=== PATIENT | female | born 1935 | race Caucasian/White ===

== ENCOUNTER 2023-05-16 10:39 | Outpatient (REF) | payer MEDICARE, MEDICAID, SELFPAY ==
[2023-05-16 13:54] LABS: Bilirubin Urine NEGATIVE (NEGATIVE); Blood Urine NEGATIVE (NEGATIVE); Clarity Urine CLEAR (CLEAR); Color Urine YELLOW (YELLOW); Glucose Urine UA NEGATIVE (NEGATIVE); Ketones Urine NEGATIVE (NEGATIVE); Leukocyte Esterase Urine NEGATIVE (NEGATIVE); Nitrite Urine NEGATIVE (NEGATIVE); Protein Urine NEGATIVE (NEG/TRACE); Specific Gravity Urine 1.025 (1.005-1.025); Urobilinogen Urine 0.2 EU/dL (0.2-1.0)
== END 2023-05-16 10:40 ==
LOC: LAB 10:39
PROVIDERS: PCP Family Medicine; Visit Provider Family Medicine
DX: R41.82 Altered mental status, unspecified (principal); R44.3 Hallucinations, unspecified
CPT/HCPCS: 81003

== ENCOUNTER 2023-05-18 01:34 | Outpatient (OUT) | payer MEDICARE, MEDICAID, SELFPAY ==
[2023-05-18 10:15] LABS: Basophils Absolute Auto 0.1 10^3/uL (0.0-0.1); Basophils Percent Auto 0.6 % (0.2-2.0); Eosinophils Absolute Auto 0.7 10^3/uL (0.0-0.7); Eosinophils Percent Auto 6.8 % (0.9-7.0); Hematocrit 39.4 % (36.0-48.0); Hemoglobin 13.1 g/dL (12.0-16.0); Immature Granulocytes Abs Auto 0.03 10^3/uL (0.00-0.03); Immature Granulocytes Pct Auto 0.3 % (0.0-0.5); Lymphocytes Absolute Auto 3.3 10^3/uL (1.2-3.8); Lymphocytes Percent Auto 32.8 % (20.5-60.0); Mean Corpuscular HGB Conc 33.2 g/dL (29.9-35.2); Mean Corpuscular Volume 90.4 fL (81.0-99.0); Mean Platelet Volume 10.1 fL (9.5-13.5); Monocytes Absolute Auto 0.8 10^3/uL (0.3-0.8); Monocytes Percent Auto 7.6 % (1.7-12.0); Neutrophils Absolute Auto 5.2 10^3/uL (1.4-6.5); Neutrophils Percent Auto 51.9 % (43.0-75.0); Platelet Count 345 10^3/uL (150-450); Red Blood Count 4.36 10^6/uL (4.20-5.40); Red Cell Distribution Width 15.4 % (11.0-15.0)
[2023-05-18 12:33] LABS: Alanine Aminotransferase 25 U/L (14-59); Albumin Globulin Ratio 0.7; Albumin Level 3.2 g/dL (3.4-5.0); Alkaline Phosphatase 116 U/L (46-116); Anion Gap 14.6; Aspartate Amino Transferase 18 U/L (15-37); BUN Creatinine Ratio 13.8; Bilirubin Total 0.7 mg/dL (0.2-1.0); Calcium 9.2 mg/dL (8.5-10.1); Carbon Dioxide 27.3 mmol/L (21.0-32.0); Chloride 102 mmol/L (98-107); Estimated GFR (African America 58 (>=60); Estimated GFR (Non-African Ame 48 (>=60); Globulin 4.5 g/dL; Glucose 153 mg/dL (74-106); Potassium 3.9 mmol/L (3.5-5.1); Sodium 140 mmol/L (136-145); Total Protein 7.7 g/dL (6.4-8.2)
== END 2023-05-18 01:35 | disposition home or self-care (01) ==
LOC: LAB 05-24 08:53
PROVIDERS: PCP Family Medicine; Visit Provider Family Medicine
DX: I10 Essential (primary) hypertension (principal); R44.9 Unspecified symptoms and signs involving general sensations and perceptions; R60.9 Edema, unspecified
CPT/HCPCS: 36415; 80053; 83880; 85025

== ENCOUNTER 2023-10-17 06:53 | Outpatient (REF) | payer MEDICARE, MEDICAID, SELFPAY ==
[2023-10-17 09:57] LABS: Anion Gap 11.2; BUN Creatinine Ratio 30.1; Calcium 9.3 mg/dL (8.5-10.1); Carbon Dioxide 32.3 mmol/L (21.0-32.0); Chloride 101 mmol/L (98-107); Estimated GFR (African America >60 (>=60); Estimated GFR (Non-African Ame >60 (>=60); Glucose 114 mg/dL (74-106); Potassium 3.5 mmol/L (3.5-5.1); Sodium 141 mmol/L (136-145)
== END 2023-10-17 06:54 | disposition home or self-care (01) ==
LOC: LAB 06:53
PROVIDERS: PCP Family Medicine; Visit Provider Family Medicine
DX: R60.9 Edema, unspecified (principal)
CPT/HCPCS: 36415; 80048; 83880

== ENCOUNTER 2023-10-25 02:14 | Outpatient (REF) | payer MEDICARE, MEDICAID, SELFPAY ==
[2023-10-26 08:32] LABS: Bilirubin Urine NEGATIVE (NEGATIVE); Blood Urine TRACE-I (NEGATIVE); Clarity Urine CLOUDY (CLEAR); Color Urine LT. YELLOW (YELLOW); Glucose Urine UA NEGATIVE (NEGATIVE); Ketones Urine NEGATIVE (NEGATIVE); Leukocyte Esterase Urine LARGE (NEGATIVE); Nitrite Urine POSITIVE (NEGATIVE); Protein Urine NEGATIVE (NEG/TRACE); Specific Gravity Urine 1.025 (1.005-1.025); Urobilinogen Urine 0.2 EU/dL (0.2-1.0); pH Urine 5.5 (5.0-9.0)
== END 2023-10-25 02:15 | disposition home or self-care (01) ==
LOC: LAB 02:14
PROVIDERS: PCP Family Medicine; Visit Provider Family Medicine
DX: R35.0 Frequency of micturition (principal)
CPT/HCPCS: 81003; 87086; 87150; 87186

== ENCOUNTER 2023-12-21 03:32 | Outpatient (REF) | payer MEDICARE, MEDICAID, SELFPAY ==
--- OUTSIDE RECORDS SUMMARY | 2023-12-21 03:37 | XMS_ITS | CCD ---
Author Name Unknown Address [address] [place] [address] Organization [facility] Care Team Providers Care Heavy Equipment Operator Apprentice Name Role Phone Efrain Esparza Primary Care Provider Efrain ESPARZA Primary Care Physician Isaias BECERRA, Efrain Gillespie Primary Care Provider Isaias BECERRA, Efrain Gillespie Primary Care Provider Isaias BECERRA, Efrain Gillespie Primary Care Provider Merle Barker Unavailable Unavailable BETSY, DR ROLLE Admitting Unavailable BETSY, DR ROLLE Attending Unavailable BETSY, DR ROLLE Primary Care Unavailable BETSY, DR ROLLE Consulting Unavailable DIAB ., DIMITRIOS Admitting Unavailable DIAB ., DIMITRIOS Attending Unavailable BETSY, DR ROLLE Primary Care Unavailable Reyes Tracy Consulting Unavailable DIAB ., DIMITRIOS Consulting Unavailable BETSY, DR ROLLE Admitting Unavailable BETSY, DR ROLLE Attending Unavailable BETSY, DR ROLLE Primary Care Unavailable BEN LUCAS Admitting Unavailable BEN LUCAS Attending Unavailable BETSY, DR ROLLE Primary Care Unavailable BEN LUCAS Consulting Unavailable BETSY, DR ROLLE Admitting Unavailable BETSY, DR ROLLE Attending Unavailable BETSY, DR ROLLE Primary Care Unavailable BETSY, DR ROLLE Consulting Unavailable Efrain ESPARZA Attending Unavailable Candy FLEMING Attending Unavailable David WHITEHEAD Admitting Unavailable LAKIA REZA Attending Unavailable EFRAIN ESPARZA Primary Care Unavailable VIGESAA, EMILIANO S Consulting Unavailable BACKАНДРЕЙ Admitting Unavailable BACKАНДРЕЙ Attending Unavailable EFRAIN ESPARZA Primary Care Unavailable EMILIANO DENG Referring Unavailable EFRAIN ESPARZA Primary Care Unavailable VIGESAAEMILIANO S Referring Unavailable EFRAIN ESPARZA Primary Care Unavailable VIGESAA, EMILIANO S Referring Unavailable EFRAIN ESPARZA Primary Care Unavailable EMILIANO DENG Referring Unavailable EFRAIN ESPARZA Primary Care Unavailable EMILIANO DENG Attending Unavailable EMILIANO DENG Referring Unavailable EFRAIN ESPARZA Primary Care Unavailable Medications Current Medications Medication Drug Class(es) Dates Sig (Normalized) Sig (Original) acetaminophen 325 mg oral tablet (3 sources) Start: 12-16-2022 acetaminophen (TYLENOL) tablet 650 mg Start: 12-15-2022 acetaminophen 325 mg Tab 650 mg = 2 tab(s), Oral, q6hr, PRN Pain, not to exceed 4000 mg/day, Refills(s) 0 Start Date: 12/15/22 Status: Ordered Start: 03-08-2021 End: 03-08-2021 acetaminophen (TYLENOL) tabl et 650 mg acetaminophen 325 mg / HYDROcodone bitartrate 5 mg oral tablet (1 source) Opioid Agonist Start: 12-07-2022 End: 12-10-2022 HYDROcodone-acetaminophen (NORCO) 5-325 MG per tablet Indications: Closed fracture of distal end of right fibula, unspecified fracture morphology, initial encounter Take 0.5 tablets by mouth every 8 hours as needed for Pain for up to 3 days. Intended supply: 3 days. Take lowest dose possible to manage pain Max Daily Amount: 1.5 tablets 5 tablet 0 12/07/2022 12/10/2022 Active acetaminophen 325 mg / oxyCODONE hydrochloride 5 mg oral tablet (3 sources) Opioid Agonist Start: 12-26-2022 End: 01-02-2023 oxyCODONE-acetaminophen (PERCOCET) 5-325 MG per tablet Indications: Closed fracture of right ankle, initial encounter Take 1 tablet by mouth every 6 hours as needed for Pain for up to 7 days. Max Daily Amount: 4 tablets 20 tablet 0 12/26/2022 01/02/2023 Active Start: 12-16-2022 oxyCODONE-acet aminophen (PERCOCET) 5-325 MG per tablet 1 tablet Start: 12-15-2022 End: 12-18-2022 take 1 tablet by mouth every six hours acetaminophen-oxycodone 325 mg-5 mg Tab 1 tab(s), Oral, q6hr Pain 8-10 for 3 day(s), 12 tab(s), Refill(s) 0, not to exceed 4000 mg acetaminophen per day Start Date: 12/15/22 Stop Date: 12/18/22 Status: Ordered aluminum hydroxide 40 mg/ml / magnesium hydroxide 40 mg/ml / simethicone 4 mg/ml oral suspension (1 source) Start: 12-22-2022 aluminum & mag nesium hydroxide-simethicone (MAALOX) 200-200-20 MG/5ML suspension 30 mL PreserVision (7 sources) Vitamin C Start: 05-31-2019 PreserVision S ee Instructions, Refill(s) 0, 2 per day Start Date: 05/31/19 Status: Ordered aspirin 81 mg chewable tablet (20 sources) Platelet Aggregation Inhibitor, Nonsteroidal Anti-inflammatory Drug Start: 12-16-2022 aspirin chewable tab let 81 mg Start: 12-15-2022 take 1 tablet by claire th once daily aspirin 81 mg Oral EC Tab 81 mg = 1 tab(s), Oral, Daily, Refills(s) 0 Start Date: 12/15/22 Status: Ordered Start: 02-06-2020 take 1 tablet by claire th once daily aspirin 81 mg oral tablet 81 mg = 1 tab(s), Oral, Daily Start Date: 02/06/20 Status: Ordered atorvastatin 20 mg oral tablet (20 sources) HMG-CoA Reductase Inhibitor Start: 10-31-2021 atorvastatin (LIPITOR) tablet 20 mg cholecalciferol 0.025 mg oral tablet (20 sources) Vitamin D Start: 12-16-2022 Vitamin D (CHOLECALCIFEROL) tablet 5,000 Units take 1 tablet by mouth once jeni y Cholecalciferol (VITAMIN D3) 125 MCG (5000 UT) TABS Take 5,000 Units by mouth daily 0 Active Cranberry preparation (7 sources) Non-Standardized Food Allergenic Extract, Non-Standardized Plant Allergenic Extract Start: 01-15-2015 take 1 tablet by mouth once daily Cranberry oral tablet 1 tab, Oral, Daily, Refill(s) 0, Prophylaxis Start Date: 01/15/15 Status: Ordered doxepin hydrochloride 10 mg oral capsule (14 sources) Tricyclic Antidepressant Start: 09-15-2021 End: 12-26-2022 take 1 capsule by mouth once daily doxepin (SINEQUAN) 10 MG capsule Take 10 mg by mouth nightly 0 09/15/2021 12/26/2022 Discontinued (Stop Taking at Discharge) DULoxetine 30 mg delayed release oral capsule (20 sources) Serotonin and Norepinephrine Reuptake Inhibitor Start: 12-16-2022 DULoxetine (CYMBALTA) extended release capsule 30 mg Start: 12-15-2022 take 30 mg by mouth once daily duloxetine 30 mg, Oral, Daily, Refills(s) 0 Start Date: 12/15/22 Status: Ordered Start: 05-10-2021 take 30 mg by mouth once Cymba lta 30 mg, Oral, Daily, per Dr. Parekh decreased while in hospital Start Date: 05/10/21 Status: Ordered take 1 capsule by [facility] once daily DULoxetine (CYMBALTA) 60 MG extended release capsule Take 60 mg by mouth daily 0 Active 0.3 ml enoxaparin sodium 100 mg/ml prefilled syringe (2 sources) Low Molecular Weight Heparin Start: 12-19-2022 enoxaparin Sodium (LOVENOX) injection 30 mg Start: 12-16-2022 End: 12-18-2022 enoxaparin (LOVENOX) injecti on 40 mg furosemide 20 mg oral tablet (20 sources) Loop Diuretic Start: 09-06-2021 End: 12-26-2022 furosemide (LASIX) tablet 20 mg gabapentin 100 mg oral capsule (7 sources) Anti-epileptic Agent Start: 12-22-2022 End: 01-25-2023 take 1 capsule by mouth twice daily gabapentin (NEURONTIN) 100 MG capsule Take 1 capsule by mouth 2 times daily for 30 days. 60 capsule 0 12/26/2022 01/25/2023 Active Start: 12-21-2022 End: 12-22-2022 gabapentin (NEURONTIN) table t 300 mg Start: 12-15-2022 End: 12-21-2022 gabapentin (NEURONTIN) capsu le 100 mg Start: 11-13-2022 End: 12-26-2022 take 1 capsule by mouth once daily gabapentin (NEURONTIN) 100 MG capsule Take 100 mg by mouth nightly. 0 11/13/2022 12/26/2022 Discontinued (Stop Taking at Discharge) ibuprofen 200 mg oral tablet (20 sources) Nonsteroidal Anti-inflammatory Drug Start: 07-12-2021 take 2 tablets by mouth once daily as needed for pain ibuprofen 200 mg Tab 400 mg = 2 tab(s), Oral, Daily, PRN as needed for pain, Refills(s) 0 Start Date: 07/12/21 Status: Ordered Start: 06-11-2021 End: 12-26-2022 take 1 tablet by mouth four times daily as needed for pain ibuprofen (ADVIL;MOTRIN) 600 MG tablet Take 1 tablet by mouth 4 times daily as needed for Pain 40 tablet 0 06/11/2021 12/26/2022 Discontinued (Stop Taking at Discharge) levothyroxine sodium 0.025 mg oral tablet (20 sources) l-Thyroxine Start: 12-16-2022 levothyroxine (SYNTHROID) tablet 50 mcg Start: 12-13-2022 take 1 tablet by claire th once daily levothyroxine 50 mcg (0.05 mg) Tab 50 mcg = 1 tab(s), Oral, Daily, Refills(s) 0 Start Date: 12/13/22 Status: Ordered Start: 10-31-2021 take 1 tablet by claire th once daily Synthroid 50 mcg (0.05 mg) Tab 50 microgram = 1 tab(s), Oral, Daily, # 90 tab(s), Refills(s) 3, Pharmacy: [id number] [place] [address], 168, cm, 10/26/21 13:49:00 EST, Height/Length Dosing, 112.5, kg, 10/14/21 10:15:00 EST, Weight Dosing Start Date: 10/31/21 Status: Ordered Start: 10-31-2021 take 1 tablet by claire th once daily Synthroid 50 mcg (0.05 mg) Tab 50 microgram = 1 tab(s), Oral, Daily, # 90 tab(s), Refills(s) 3, Pharmacy: [id number] [place] [address], 168, cm, 10/26/21 13:49:00 EST, Height/Length Dosing, 112.5, kg, 10/14/21 10:15:00 EST, Weight Dosing Start Date: 10/31/21 Status: Ordered lisinopril 20 mg oral tablet (20 sources) Angiotensin Converting Enzyme Inhibitor Start: 12-15-2022 End: 12-21-2022 lisinopril (PRINIVIL;ZESTRIL) tablet 20 mg Start: 01-05-2018 End: 12-26-2022 take 1 tablet by mouth twice daily lisinopril 20 mg Tab 20 mg = 1 tab(s), Oral, BID, Refills(s) 0 Start Date: 12/15/22 Status: Ordered metoprolol tartrate 100 mg oral tablet (20 sources) beta-Adrenergic Lucas Start: 12-26-2022 take 1 tablet by mouth once daily metoprolol tartrate (LOPRESSOR) 100 MG tablet Take 1 tablet by mouth daily 60 tablet 3 12/26/2022 Active Start: 12-16-2022 metoprolol tar trate (LOPRESSOR) tablet 100 mg Start: 12-15-2022 End: 12-15-2022 take 2 tablets by mouth once daily metoprolol 100 mg ER Tab 200 mg = 2 tab(s), Oral, Daily, Refills(s) 0 Start Date: 12/15/22 Status: Ordered Start: 12-14-2022 End: 12-14-2022 metoprolol 100 mg ER Tab 200 mg = 2 tab(s), Tab-ER, Oral, Start date 12/14/22 9:00:00 EST, 12/13/22 0:54:00 EST Start Date: 12/14/22 Stop Date: 12/14/22 Status: Completed Start: 12-13-2022 End: 12-13-2022 metoprolol 100 mg ER Tab 200 mg = 2 tab(s), Tab-ER, Oral, Start date 12/13/22 9:00:00 EST, 12/13/22 0:54:00 EST Start Date: 12/13/22 Stop Date: 12/13/22 Status: Completed Start: 01-24-2022 End: 12-26-2022 take 1 tablet by mouth once daily Toprol XL 200 mg Tab-ER 200 mg = 1 tab(s), Oral, Daily, # 90 tab(s), Refills(s) 3, [id number], 168, cm, 01/24/22 11:42:00 EST, Height/Length Dosing, 116, kg, 01/24/22 11:42:00 EST, Weight Dosing Start Date: 01/24/22 Status: Ordered Multiple Vitamins-Minerals (PRESERVISION AREDS 2+MULTI VIT PO) (20 sources) Multiple Vitamins-Minerals (PRESERVISION AREDS 2+MULTI VIT PO) Take by mouth 0 Active multivitamin 1 tablet (1 source) Start: 2022 multivitamin 1 tablet multivitamin with minerals (1 source) Start: 2022 take 1 tablet by mouth once daily multivitamin with minerals 1 tab, Oral, Daily, Refill(s) 0 Start Date: 12/13/22 Status: Ordered ondansetron 4 mg disintegrating oral tablet (1 source) Serotonin-3 Receptor Antagonist Start: 2022 ondansetron (ZOFRAN-ODT) disintegrating tablet 4 mg pantoprazole 40 mg delayed release oral tablet (3 sources) Proton Pump Inhibitor Start: 2022 take 1 tablet by mouth once daily before breakfast pantoprazole (PROTONIX) 40 MG tablet Take 1 tablet by mouth every morning (before breakfast) 30 tablet 3 12/27/2022 Active Start: 12-15-2022 pantoprazole ( PROTONIX) tablet 40 mg potassium chloride 10 meq extended release oral tablet (20 sources) Start: 12-16-2022 potassium chlo ride (KLOR-CON) extended release tablet 10 mEq Start: 12-04-2022 take 1 tablet by claire th once daily potassium chloride (KLOR-CON M) 10 MEQ extended release tablet Take 1 tablet by mouth daily 30 tablet 11 12/04/2022 Active Start: 01-03-2022 take 1 tablet by claire th once daily potassium chloride (KLOR-CON M) 10 MEQ extended release tablet Take 1 tablet by mouth daily 30 tablet 11 01/03/2022 Active Start: 09-26-2021 take 1 capsule by mouth once p otassium chloride 10 mEq Cap-ER 10 mEq = 1 cap(s), Oral, Daily, per Dr. Coyle Start Date: 09/26/21 Status: Ordered Start: 09-26-2021 take 1 capsule by mouth once p otassium chloride 10 mEq Cap-ER 10 mEq = 1 cap(s), Oral, Daily, per Dr. Coyle Start Date: 09/26/21 Status: Ordered Start: 09-19-2021 take 1 tablet by claire th once daily potassium chloride (KLOR-CON M) 10 MEQ extended release tablet Take 1 tablet by mouth daily 30 tablet 3 09/19/2021 Active sennosides, penitentiary 8.6 mg oral tablet (3 sources) Start: 12-26-2022 End: 01-25-2023 take 2 tablets by mouth twice daily as needed for constipation senna (SENOKOT) 8.6 MG tablet Take 2 tablets by mouth 2 times daily as needed (Constipation) 0 12/26/2022 01/25/2023 Active Start: 12-16-2022 senna (SENOKOT ) tablet 17.2 mg Start: 12-15-2022 take 2 tablets by mo uth twice daily as needed Senokot 8.6 mg Tab 17.2 mg = 2 tab(s), Oral, BID, PRN Other (see comment), Refills(s) 0 Start Date: 12/15/22 Status: Ordered spironolactone 25 mg oral tablet (20 sources) Aldosterone Antagonist Start: 01-18-2021 spironolactone (ALDACTONE) tablet 25 mg vitamin e 180 mg oral capsule (20 sources) Start: 12-25-2022 vitamin E caps ule 400 Units Start: 05-31-2019 vitamin E 400 International_Unit, Oral, Daily, Refills(s) 0 Start Date: 05/31/19 Status: Ordered vitamin E 400 UN IT capsule Take by mouth daily 0 Active Completed/Discontinued Medications Medication Drug Class(es) Dates Sig (Normalized) Sig (Original) 0.8 ml adalimumab 50 mg/ml prefilled syringe (20 sources) Tumor Necrosis Factor Lucas Start: 08-30-2010 End: 08-30-2010 inject 40 mg by subcutaneous injection once Humira 40 mg/0.8 mL subcutaneous kit 40 mg = 0.8 mL, SubCutaneous, Further dosing per PCP or hook loader, Refills(s) 0, Arthritis Start Date: 08/30/10 Stop Date: 08/30/10 Status: Ordered adalimumab (HUMI RA) 40 MG/0.8ML injection Inject 40 mg into the skin every 14 days 0 Active adalimumab (HUMI RA) 40 MG/0.8ML injection Inject 40 mg into the skin once 0 Active Compression stockings, 20-30 mmHg (8 sources) Start: 06-16-[address] ockings, 20-30 mmHg Compression stockings, 20-30 mmHg, See Instructions, 1 EA, 1, wear daily both legs Thigh high, Supply Start Date: 06/16/19 Status: Ordered Insulin Lispro (3 sources) Insulin Analog Start: 12-14-2022 End: 12-14-2022 Insulin Lispro Sliding Scale 0-10 Units, Injection-Insulin, SubCutaneous, Start date 12/14/22 21:00:00 EST Start Date: 12/14/22 Stop Date: 12/14/22 Status: Completed Start: 12-14-2022 End: 12-14-2022 Insulin Lispro Sliding Scale 0-10 Units, Injection-Insulin, SubCutaneous, Start date 12/14/22 16:30:00 EST Start Date: 12/14/22 Stop Date: 12/14/22 Status: Completed Start: 12-14-2022 End: 12-14-2022 Insulin Lispro Sliding Scale 0-10 Units, Injection-Insulin, SubCutaneous, Start date 12/14/22 11:30:00 EST Start Date: 12/14/22 Stop Date: 12/14/22 Status: Completed 1 ml ketorolac tromethamine 30 mg/ml cartridge (2 sources) Nonsteroidal Anti-inflammatory Drug, Cyclooxygenase Inhibitor Start: 10-02-2021 End: 10-02-2021 ketorolac (TORADOL) injection 30 mg Start: 06-11-2021 End: 06-11-2021 ketorolac (TORADOL) injectio n 60 mg Vitamin D3 5000 intl units oral capsule (8 sources) Start: 02-06-2020 take 1 capsule by mouth once Vitamin D3 5000 intl units oral capsule 5,000 International_Unit = 1 cap(s), Oral, Daily, per integrated program teacher Start Date: 02/06/20 Status: Ordered Problems Active Problems Problem Classification Problem Date Documented Date Episodic/Chronic Cardiac dysrhythmias (11 sources) Atrial fibrillation; Translations: [Unspecified atrial fibrillation] Onset: 09-06-2023 Chronic Chronic obstructive pulmonary disease and bronchiectasis (1 source) Pulmonary emphysema 10-06-2022 Chronic Comment on above: Added at the request of Dr. Esparza, per outpatient [facility] policy. Congestive heart failure; nonhypertensive (3 sources) Chronic systolic heart failure; Translations: [Acute diastolic heart failure] Onset: 10-31-2022 10-31-2022 Chronic Coronary atherosclerosis and other heart disease (17 sources) Coronary atherosclerosis; Translations: [Ischemic myocardial dysfunction] Onset: 10-12-2023 Chronic Diabetes mellitus with complications (3 sources) Complication due to diabetes mellitus; Translations: [Type 2 diabetes mellitus with other specified complication] Onset: 06-30-2022 Chronic Comment on above: Added at the request of Dr. Esparza, per outpatient CDI policy. Diabetes mellitus without complication (7 sources) Type 2 diabetes mellitus; Translations: [Type 2 diabetes mellitus without complications] Onset: 10-31-2022 06-30-2022 Chronic Diabetes mellitus without complication (5 sources) Hyperglycemia; Translations: [Hyperglycemia, unspecified] Onset: 10-31-2022 08-30-2020 Episodic Disorders of lipid metabolism (20 sources) Dyslipidemia; Translations: [Hyperlipidemia] Onset: 06-30-2022 Chronic E Codes: Fall (1 source) Unspecified fall, initial encounter; Translations: [UNSPECIFIED FALL INITIAL ENCOUNTER] Onset: 01-29-2023 Episodic Esophageal disorders (12 sources) Gastroesophageal reflux disease; Translations: [Gastroesophageal reflux disease without esophagitis] Onset: 06-30-2022 05-12-2019 Chronic Essential hypertension (20 sources) Hypertensive disorder; Translations: [Essential hypertension] Onset: 06-30-2022 Chronic Fluid and electrolyte disorders (4 sources) Hypokalemia; Translations: [HYPOKALEMIA] Onset: 03-05-2023 Episodic Heart valve disorders (16 sources) Mitral valve regurgitation; Translations: [Nonrheumatic mitral (valve) insufficiency] Onset: 06-30-2022 Chronic Immunity disorders (1 source) 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 Esparza, per outpatient [facility]I policy. Malaise and fatigue (3 sources) Asthenia; Translations: [Weakness] Onset: 12-12-2022 Episodic Nutritional deficiencies (8 sources) Vitamin D deficiency; Translations: [Vitamin D deficiency, unspecified] Onset: 12-03-2023 Chronic Osteoarthritis (3 sources) Osteoarthritis of left hip joint; Translations: [Unilateral primary osteoarthritis, left hip] Chronic Osteoarthritis (1 source) Osteoarthritis of right knee joint; Translations: [Primary osteoarthritis of right knee] Other aftercare (3 sources) Long-term current use of drug therapy; Translations: [Other long term care pharmacist (current) drug therapy] Onset: 12-14-2022 Episodic Other connective tissue disease (2 sources) Pain of left calf; Translations: [Pain in left lower leg] Episodic Other connective tissue disease (10 sources) Pain in left lower limb; Translations: [Pain in left leg] Onset: 10-31-2022 10-14-2021 Episodic Other ear and sense organ disorders (3 sources) Impacted cerumen; Translations: [Impacted cerumen, unspecified ear] Onset: 10-31-2022 10-31-2022 Episodic Other injuries and conditions due to external causes (1 source) Injury of head; Translations: [Injury of head, initial encounter] Episodic Other injuries and conditions due to external causes (1 source) History of fall; Translations: [History of falling] Onset: 12-12-2022 Episodic Other injuries and conditions due to external causes (1 source) History of falling; Translations: [HISTORY OF FALLING] Onset: 01-29-2023 Episodic Other lower respiratory disease (4 sources) Other abnormalities of breathing; Translations: [OTHER ABNORMALITIES OF BREATHING] Onset: 02-28-2023 Episodic Other lower respiratory disease (1 source) Shortness of breath; Translations: [Shortness of breath] Onset: 12-03-2023 Episodic Other nervous system disorders (1 source) Numbness; Translations: [Has numbness] Episodic Other nervous system disorders (1 source) Paresthesia; Translations: [Paresthesia of skin] Episodic Other nervous system disorders (17 sources) Numbness of hand; Translations: [Anesthesia of skin] Onset: 10-31-2022 01-05-2021 Episodic Other nervous system disorders (10 sources) Unsteady when standing; Translations: [Unsteadiness on feet] Onset: 10-31-2022 09-26-2021 Episodic Other non-traumatic joint disorders (1 source) Hip pain; Translations: [Pain in left hip] Episodic Other non-traumatic joint disorders (2 sources) Bilateral wrist pain; Translations: [Pain in right wrist] Episodic Other non-traumatic joint disorders (3 sources) Pain in right knee; Translations: [PAIN IN RIGHT KNEE] Onset: 01-26-2023 Episodic Other nutritional; endocrine; and metabolic disorders (1 source) Body mass index 40+ - severely obese; Translations: [Body mass index (BMI) 40.0-44.9, adult] Onset: 06-30-2022 Chronic Other nutritional; endocrine; and metabolic disorders (5 sources) Morbid obesity; Translations: [Morbid (severe) obesity due to excess calories] Onset: 06-30-2022 Chronic Comment on above: Added at the request of Dr. Esparza, per outpatient [facility] policy. Other screening for suspected conditions (not mental disorders or infectious disease) (4 sources) Encounter for screening, unspecified; Translations: [ENCOUNTER FOR SCREENING UNSPECIFIED] Onset: 01-29-2023 Episodic Other upper respiratory disease (10 sources) Hoarse; Translations: [Dysphonia] Onset: 10-31-2022 08-30-2020 Episodic Paralysis (1 source) Weakness of left leg; Translations: [Left leg weakness] Peripheral and visceral atherosclerosis (1 source) Atherosclerosis of aorta 10-06-2022 Chronic Comment on above: Added at the request of Dr. Esparza, per outpatient [facility]I policy. Residual codes; unclassified (10 sources) Hallucinations; Translations: [Hallucinations, unspecified] Onset: 10-31-2022 12-13-2021 Episodic Residual codes; unclassified (8 sources) Swelling - edema - symptom 05-12-2019 Episodic Residual codes; unclassified (2 sources) Edema; Translations: [Edema, unspecified] Onset: 10-31-2022 10-31-2022 Episodic Residual codes; unclassified (4 sources) Localized edema; Translations: [LOCALIZED EDEMA] Onset: 02-23-2023 Episodic Rheumatoid arthritis and related disease (14 sources) Rheumatoid arthritis; Translations: [Rheumatoid arthritis of multiple joints] Onset: 06-30-2022 01-05-2021 Chronic Spondylosis; intervertebral disc disorders; other back problems (10 sources) Cervical disc disorder; Translations: [Cervical disc disorder, unspecified, unspecified cervical region] Onset: 10-31-2022 05-12-2019 Chronic Spondylosis; intervertebral disc disorders; other back problems (12 sources) Lumbosacral radiculopathy; Translations: [Spinal stenosis of lumbar region] Onset: 10-31-2022 09-26-2021 Episodic Superficial injury; contusion (4 sources) Contusion of rib; Translations: [Contusion of right front wall of thorax, initial encounter] Onset: 01-29-2023 Episodic Thyroid disorders (12 sources) Hypothyroidism; Translations: [Hypothyroidism, unspecified] Onset: 06-30-2022 08-30-2020 Chronic Unclassified (6 sources) RA( Confirmed ) 10-19-2011 Unclassified (1 source) RA 10-19-2011 Unclassified (2 sources) Body mass index 40+ - severely obese; Translations: [Adult body mass index 40 and over] Onset: 10-31-2022 10-31-2022 Unclassified (1 source) Long-term current use of drug therapy 10-06-2022 Comment on above: Added at the request of Dr. Esparza, per outpatient [facility]I policy. Past or Other Problems Problem Classification Problem Date Documented Da te Episodic/Chronic Fracture of lower limb (5 sources) Closed fracture of distal right fibula; Translations: [Other fracture of upper and lower end of right fibula, initial encounter for closed fracture] Onset: 12-07-2022 Episodic Other circulatory disease (1 source) Bruit; Translations: [Bruit] Episodic Urinary tract infections (10 sources) Urinary tract infectious disease; Translations: [Urinary tract infection, site not specified] Onset: 10-31-2022 Resolved: 11-30-2022 12-13-2021 Episodic Results Test Name Value Interpretation Reference Range Facility Echocardiographyon 4 Echocardiography [id number]# 1.00TIFF Normal [facility] - Clinical Noteon Retail - Clinical Note [id number] #1.00TIFF Normal [facility] CBC with Diffon 09-06-2023 Abs. Basophil 0.02 k/uL Normal 0.00-0.20 [facility] Comment on above: Performed By: #### Z FAST, CP, CDP, TSHX, MG #### [facility] [address] [place] [address] Application Development Intern: Ronaldo Reed MD #### LIPR #### [id number] [place] [address] Application Development Intern: Jaxon Irwin MD Abs.Imm.Granulocyte 0.01 k/uL Normal 0.00-0.30 [facility] Comment on above: Performed By: #### Z FAST, CP, CDP, TSHX, MG #### [facility] [facility] [address] [place], [place] [id number] Application Development Intern: Ronaldo Reed MD #### LIPR #### [address] [phone] Application Development Intern: Jaxon Irwin MD Abs.Neutrophil (Seg) 5.48 k/uL Normal 2.5-7.0 [facility] Comment on above: Performed By: #### Z FAST, CP, CDP, TSHX, MG #### [facility] [address] [place] [address] Application Development Intern: Ronaldo Reed MD #### LIPR #### [address] [phone] Application Development Intern: Jaxon Irwin MD Basophils/100 WBC (Bld) 0 % Normal 0-2 [facility] Comment on above: Performed By: #### Z FAST, CP, CDP, TSHX, MG #### [facility] [address] [place], [place] [phone] Application Development Intern: Ronaldo Reed MD #### LIPR #### [address] [phone] Application Development Intern: Jaxon Irwin MD Eosinophils (Bld) [#/Vol] 0.35 10*3/uL Normal 0.00-0.40 [facility] Comment on above: Performed By: #### Z FAST, CP, CDP, TSHX, MG #### [facility] [address] [place] [address] Application Development Intern: Ronaldo Reed MD #### LIPR #### [address] [phone] Application Development Intern: Jaxon Irwin MD Eosinophils/100 WBC (Bld) 4 % Normal 0-5 [facility] Comment on above: Performed By: #### Z FAST, CP, CDP, TSHX, MG #### [facility] [address] [place], [place] [id number] Application Development Intern: Ronaldo Reed MD #### LIPR #### [address] [phone] Application Development Intern: Jaxon Irwin MD Erythrocyte distribution width (RBC) [Ratio] 13.3 % Normal 12.1-15.2 [facility] Comment on above: Performed By: #### Z FAST, CP, CDP, TSHX, MG #### [facility] [address] [place] [address] Application Development Intern: Ronaldo Reed MD #### LIPR #### [address] [phone] Application Development Intern: Jaxon Irwin MD Hematocrit (Bld) [Volume fraction] 40.2 % Normal 36.0-46.0 [facility] Comment on above: Performed By: #### Z FAST, CP, CDP, TSHX, MG #### [facility] [address] [place] [address] Application Development Intern: Roanldo Reed MD #### LIPR #### [address] [phone] Application Development Intern: Jaxon Irwni MD Hemoglobin (Bld) [Mass/Vol] 13.5 g/dL Normal 12.0-16.0 [facility] Comment on above: Performed By: #### Z FAST, CP, CDP, TSHX, MG #### [facility] [address] [place] [address] Application Development Intern: Ronaldo Reed MD #### LIPR #### [address] [phone] Application Development Intern: Jaxon Irwin MD Immature granulocytes/100 WBC (Bld) 0 % Normal 0-5 [facility] Comment on above: Performed By: #### Z FAST, CP, CDP, TSHX, MG #### [facility] [address] [place] [address] Application Development Intern: Ronaldo Reed MD #### LIPR #### [address] [phone] Application Development Intern: Jaxon Irwin MD Lymphocytes (Bld) [#/Vol] 2.64 10*3/uL Normal 1.00-4.80 [facility] Comment on above: Performed By: #### Z FAST, CP, CDP, TSHX, MG #### [facility] [address] [place] [phone] Application Development Intern: Ronaldo Reed MD #### LIPR #### [place] [phone] Application Development Intern: Jaxon Irwin MD Lymphocytes/100 WBC (Bld) 29 % Normal 15-40 [facility] Comment on above: Performed By: #### Z FAST, CP, CDP, TSHX, MG #### [facility] [address] [place] [address] Application Development Intern: Ronaldo Reed MD #### LIPR #### [address] [phone] Application Development Intern: Jaxon Irwin MD MCH (RBC) [Entitic mass] 30.8 pg Normal 26.0-34.0 [facility] Comment on above: Performed By: #### Z FAST, CP, CDP, TSHX, MG #### [facility] [address] [place] [address] Application Development Intern: Ronaldo Reed MD #### LIPR #### [address] [id number] Application Development Intern: Jaxon Irwin MD MCHC (RBC) [Mass/Vol] 33.6 g/dL Normal 31.0-37.0 [facility] Comment on above: Performed By: #### Z FAST, CP, CDP, TSHX, MG #### [facility] [address] [place] [address] Application Development Intern: Ronaldo Reed MD #### LIPR #### [address] [phone] Application Development Intern: Jaxon Irwin MD MCV (RBC) [Entitic vol] 91.6 fL Normal 80.0-100.0 [facility] Comment on above: Performed By: #### Z FAST, CP, CDP, TSHX, MG #### [facility] [address] [place] [address] Application Development Intern: Ronaldo Reed MD #### LIPR #### [place] [address] Application Development Intern: Jaxon Irwin MD Monocytes (Bld) [#/Vol] 0.49 10*3/uL Normal 0.00-1.00 [facility] Comment on above: Performed By: #### Z FAST, CP, CDP, TSHX, MG #### [facility] [address] [place] [address] Application Development Intern: Ronaldo Reed MD #### LIPR #### [place] [address] Application Development Intern: Jaxon Irwin MD Monocytes/100 WBC (Bld) 6 % Normal 4-8 [facility] Comment on above: Performed By: #### Z FAST, CP, CDP, TSHX, MG #### [facility] [address] [place] [address] Application Development Intern: Ronaldo Reed MD #### LIPR #### [address] [phone] Application Development Intern: Jaxon Irwin MD Neutrophil (Seg) 61 % Normal 47-75 [facility] Comment on above: Performed By: #### Z FAST, CP, CDP, TSHX, MG #### [facility] [address] [place], [place] [phone] Application Development Intern: Ronaldo Reed MD #### LIPR #### [address] [phone] Application Development Intern: Jaxon Irwin MD Platelet mean volume (Bld) [Entitic vol] 9.4 fL Normal 6.0-12.0 [facility] Comment on above: Performed By: #### Martha FAST, CP, CDP, TSHX, MG #### [facility] [address] [place], [place] [phone] Application Development Intern: Ronaldo Reed MD #### LIPR #### [place] [address] Application Development Intern: Jaxon Irwin MD Platelets (Bld) [#/Vol] 298 10*3/uL Normal 140-450 [facility] Comment on above: Performed By: #### Martha FAST, CP, CDP, TSHX, MG #### [facility] [address] [place], [place] [phone] Application Development Intern: Ronaldo Reed MD #### LIPR #### [address] [address] Application Development Intern: Jaxon Irwin MD RBC (Bld) [#/Vol] 4.39 10*6/uL Normal 4.00-5.20 [facility] Comment on above: Performed By: #### Z FAST, CP, CDP, TSHX, MG #### [facility] [address] [place], [place] [phone] Application Development Intern: Ronaldo Reed MD #### LIPR #### [address] [phone] Application Development Intern: Jaxon Irwin MD WBC (Bld) [#/Vol] 9.0 10*3/uL Normal 3.5-11.0 [facility] Comment on above: Performed By: #### Z FAST, CP, CDP, TSHX, MG #### [facility] [address] [place], [place] [phone] Application Development Intern: Ronaldo Reed MD #### LIPR #### [address] [address] Application Development Intern: Jaxon Irwin MD Comp Metabolic Profon 2022 Albumin [Mass/Vol] 3.8 g/dL Normal 3.5-5.2 [facility] Comment on above: Performed By: #### Z FAST, CP, CDP, TSHX, MG #### [facility] [address] [place], [place] [phone] Application Development Intern: Ronaldo Reed MD #### LIPR #### [address] [phone] Application Development Intern: Jaxon Irwin MD Alkaline Phos 120 U/L High 35-104 [facility] Comment on above: Performed By: #### Z FAST, CP, CDP, TSHX, MG #### [facility] [address] [place], [place] [phone] Application Development Intern: Ronaldo Reed MD #### LIPR #### [address] [phone] Application Development Intern: Jaxon Irwin MD ALT [Catalytic activity/Vol] 15 U/L Normal 5-33 [facility] Comment on above: Performed By: #### Z FAST, CP, CDP, TSHX, MG #### [facility] [address] [place], [place] [phone] Application Development Intern: Ronaldo Reed MD #### LIPR #### [address] [phone] Application Development Intern: Jaxon Irwin MD Anion gap [Moles/Vol] 11 mmol/L Normal 9-17 [facility] Comment on above: Performed By: #### Z FAST, CP, CDP, TSHX, MG #### [facility] [address] [place], [place] [phone] Application Development Intern: Ronaldo Reed MD #### LIPR #### [address] [phone] Application Development Intern: Jaxon Irwin MD AST [Catalytic activity/Vol] 15 U/L Normal <32 [facility] Comment on above: Performed By: #### Z FAST, CP, CDP, TSHX, MG #### [facility] [address] [place], [place] [phone] Application Development Intern: Ronaldo Reed MD #### LIPR #### [address] [phone] Application Development Intern: Jaxon Irwin MD Bilirubin [Mass/Vol] 0.6 mg/dL Normal 0.3-1.2 [facility] Comment on above: Performed By: #### Z FAST, CP, CDP, TSHX, MG #### [facility] [address] [place], [place] [phone] Application Development Intern: Ronaldo Reed MD #### LIPR #### [address] [phone] Application Development Intern: Jaxon Irwin MD BUN/CRE Ratio 30 High 9-20 [facility] Comment on above: Performed By: #### Z FAST, CP, CDP, TSHX, MG #### [facility] [address] [place], [place] [phone] Application Development Intern: Ronaldo Reed MD #### LIPR #### [address] [place], [place] [id number] Application Development Intern: Jaxon Irwin MD Calcium [Mass/Vol] 10.0 mg/dL Normal 8.6-10.4 [facility] Comment on above: Performed By: #### Z FAST, CP, CDP, TSHX, MG #### [facility] [address] [place], [place] [phone] Application Development Intern: Ronaldo Reed MD #### LIPR #### [address] [phone] Application Development Intern: Jaxon Irwin MD Chloride [Moles/Vol] 98 mmol/L Normal 98-107 [facility] Comment on above: Performed By: #### Z FAST, CP, CDP, TSHX, MG #### [facility] [address] [place] [address] Application Development Intern: Ronaldo Reed MD #### LIPR #### [place] 760748 [place], [place] 2385208 Application Development Intern: Jaxon Irwin MD CO2 [Moles/Vol] 28 mmol/L Normal 20-31 [facility] Comment on above: Performed By: #### Z FAST, CP, CDP, TSHX, MG #### [facility] [address] [place], [place] [phone] Application Development Intern: Ronaldo Reed MD #### LIPR #### [address] [phone] Application Development Intern: Jaxon Irwin MD Creatinine [Mass/Vol] 0.8 mg/dL Normal 0.5-0.9 [facility] Comment on above: Performed By: #### Z FAST, CP, CDP, TSHX, MG #### [facility] [address] [place] [address] Application Development Intern: Ronaldo Reed MD #### LIPR #### [address] [phone] Application Development Intern: Jaxon Irwin MD GFR/1.73 sq M.predicted among non-blacks MDRD (S/P/Bld) [Vol rate/Area] mL/min/{1.73_m2} Normal >60 [facility] Comment on above: Result Comment: These results are not intended for use in patients <18 years of age. eGFR results are calculated without a race factor using the 2020 CKD-EPI equation. Careful clinical correlation is recommended, particularly when comparing to results calculated using previous equations. The CKD-EPI equation is less accurate in patients with extremes of muscle mass, extra-renal metabolism of creatine, excessive creatine ingestion, or following therapy that affects renal tubular secretion. Performed By: #### Z FAST, CP, CDP, TSHX, MG #### [facility] [address] [place], [place] [phone] Application Development Intern: Ronaldo Reed MD #### LIPR #### [address] [phone] Application Development Intern: Jaxon Irwin MD Glucose [Mass/Vol] 126 mg/dL High 70-99 [facility] Comment on above: Performed By: #### Z FAST, CP, CDP, TSHX, MG #### [facility] [address] [place] [address] Application Development Intern: Ronaldo Reed MD #### LIPR #### [address] [phone] Application Development Intern: Jaxon Irwin MD Potassium [Moles/Vol] 3.9 mmol/L Normal 3.7-5.3 [facility] Comment on above: Performed By: #### Z FAST, CP, CDP, TSHX, MG #### [facility] [address] [place], [place] [phone] Application Development Intern: Ronaldo Reed MD #### LIPR #### [address] [phone] Application Development Intern: Jaxon Irwin MD Protein [Mass/Vol] 7.3 g/dL Normal 6.4-8.3 [facility] Comment on above: Performed By: #### Z FAST, CP, CDP, TSHX, MG #### [facility] [address] [place], [place] 1485590 Application Development Intern: Ronaldo Reed MD #### LIPR #### [place] [address] [place], [place] [phone] Application Development Intern: Jaxon Irwin MD Sodium [Moles/Vol] 137 mmol/L Normal 135-144 [facility] Comment on above: Performed By: #### Martha FAST, CP, CDP, TSHX, MG #### [facility] [address] [place], [place] [phone] Application Development Intern: Ronaldo Reed MD #### LIPR #### [address] [phone] Application Development Intern: Jaxon Irwin MD Urea nitrogen [Mass/Vol] 24 mg/dL High 07-18 [facility] Comment on above: Performed By: #### Martha FAST, CP, CDP, TSHX, MG #### [facility] [address] [place], [place] [phone] Application Development Intern: Ronaldo Reed MD #### LIPR #### [address] [phone] Application Development Intern: Jaxon Irwin MD Lipid Profileon 09-06-2023 Cholesterol [Mass/Vol] 166 mg/dL Normal <200 [facility] Comment on above: Result Comment: Cholesterol Guidelines: <200 Desirable 200-240 Borderline >240 Undesirable Performed By: #### Z FAST, CP, CDP, TSHX, MG #### [facility] [address] [place], [place] [phone] Application Development Intern: Ronaldo Reed MD #### LIPR #### [facility] [employer] [address] [place] [address] Application Development Intern: Jaxon Irwin MD Cholesterol in HDL [Mass/Vol] 54 mg/dL Normal >40 [facility] Comment on above: Result Comment: HDL Guidelines: <40 Undesirable 40-59 Borderline >59 Desirable Performed By: #### Z FAST, CP, CDP, TSHX, MG #### [facility] [address] [place], [place] [phone] Application Development Intern: Ronaldo Reed MD #### LIPR #### [address] [address] Application Development Intern: Jaxon Irwin MD Cholesterol in LDL [Mass/Vol] 90 mg/dL Normal 0-130 [facility] Comment on above: Result Comment: LDL Guidelines: <100 Desirable 100-129 Near to/above Desirable 130-159 Borderline >159 Undesirable Direct (measured) LDL and calculated LDL are not interchangeable tests. Performed By: #### Z FAST, CP, CDP, TSHX, MG #### [facility] [address] [place], [place] [phone] Application Development Intern: Ronaldo Reed MD #### LIPR #### [address] [phone] Application Development Intern: Jaxon Irwin MD Cholesterol.total/Chol esterol in HDL [Mass ratio] 3.1 {ratio} Normal <5 [facility] Comment on above: Performed By: #### Z FAST, CP, CDP, TSHX, MG #### [facility] [address] [place], [place] [phone] Application Development Intern: Ronaldo Reed MD #### LIPR #### [address] [phone] Application Development Intern: Jaxon Irwin MD Triglyceride [Mass/Vol] 108 mg/dL Normal <150 [facility] Comment on above: Result Comment: Triglyceride Guidelines: <150 Desirable 150-199 Borderline 200-499 High >499 Very high Based on AHA Guidelines for fasting triglyceride, August 2012. Performed By: #### Z FAST, CP, CDP, TSHX, MG #### [facility] [address] [place] [address] Application Development Intern: Ronaldo Reed MD #### LIPR #### [place] [address] [place], [place] [phone] Application Development Intern: Jaxon Irwin MD Magnesiumon 09-06-2023 Magnesium [Mass/Vol] 1.9 mg/dL Normal 1.6-2.6 [facility] Comment on above: Performed By: #### Martha FAST, CP, CDP, TSHX, MG #### [facility] [address] [place] [address] Application Development Intern: Ronaldo Reed MD #### LIPR #### [place] [address] [place], [place] [phone] Application Development Intern: Jaxon Irwin MD Patient fasting?on 3 Patient fasting? YES Normal [facility] Comment on above: Performed By: #### Martha FAST, CP, CDP, TSHX, MG #### [facility] [address] [place] [address] Application Development Intern: Ronaldo Reed MD #### LIPR #### [place] [address] [place], [place] [phone] Application Development Intern: Jaxon Irwin MD RAD - MISCon 09-06-2023 RAD - MISC [id number] #[id number] Normal [facility] TSH w/reflex to FT4on 2022 Thyroid Stim. Horm. 2.32 uIU/mL Normal 0.30-5.00 [facility] Comment on above: Performed By: #### Z FAST, CP, CDP, TSHX, MG #### [facility] [address] [place] [address] Application Development Intern: Ronaldo Reed MD #### LIPR #### [facility] [address] [place], [place] [phone] Application Development Intern: Jaxon Irwin MD XR CHEST (2 VW)on 09-06-2023 XR CHEST (2 VW) EXAM: XR CHEST (2 VW) HISTORY: Atrial fibrillation, unspecified type (HCC) essential hypertension. COMPARISON: 08/08/2022 IMPRESSION: FINDINGS/IMPRESSION: 1. Heart size upper normal unchanged. 2. Chronic interstitial stranding at the lung markings, mild, stable. 3. No acute change. Interpreted by: Bang Godoy Jr., MD Signed by: Bang Godoy Jr., MD 09/06/23 Final result Normal [facility] POTASSIUMon 03-05-2023 Potassium [Moles/Vol] 4.0 mmol/L Normal 3.5-5.1 [facility] Comment on above: Performed By: #### K #### [facility] [address] [place] [address] Dr. Lacey Corado BNPon 02-28-2023 Natriuretic peptide B (Bld) [Mass/Vol] 60.0 pg/mL Normal <=1,800.0 [facility] Comment on above: Performed By: #### B MP, BNP #### [facility] [address] [place] [address] Dr. Lacey Corado PROF CHEM 8 (BAS METB)on Anion gap [Moles/Vol] 10.8 mmol/L Normal [facility] Comment on above: Performed By: #### B MP, BNP #### [facility] [address] [place] [address] Dr. Lacey Corado Calcium [Mass/Vol] 9.0 mg/dL Normal 8.5-10.1 [facility] Comment on above: Performed By: #### B MP, BNP #### [facility] [address] [place] [address] Dr. Lacey Corado Chloride [Moles/Vol] 103 mmol/L Normal 98-107 [facility] Comment on above: Performed By: #### B MP, BNP #### [facility] [address] [place] [address] [address] Lacey Corado CO2 [Moles/Vol] 28.5 mmol/L Normal 21.0-32.0 [facility] Comment on above: Performed By: #### B MP, BNP #### [facility] [address] [place] [address] [address] Lacey Corado Creatinine [Mass/Vol] 0.81 mg/dL Normal 0.55-1.02 [facility] Comment on above: Performed By: #### B MP, BNP #### [facility] [address] [place] [address] Dr. Lacey Corado EGFR-AF ZAMBIAN >60 Normal >=60 [facility] Comment on above: Performed By: #### B MP, BNP #### [facility] [address] [place] [address] [address] Lacey Corado EGFR-NON AF ZAMBIAN >60 Normal >=60 [facility] Comment on above: Performed By: #### B MP, BNP #### [facility] [address] [place] [address] [address] Lacey Corado Glucose [Mass/Vol] 111 mg/dL Critically high 74-106 [facility] Comment on above: Performed By: #### B MP, BNP #### [facility] [address] [place] [address] [address] Lacey Corado Potassium [Moles/Vol] 3.3 mmol/L Critically low 3.5-5.1 [facility] Comment on above: Performed By: #### B MP, BNP #### [facility] [address] [place] [address] [address] Lacey Corado Sodium [Moles/Vol] 139 mmol/L Normal 136-145 [facility] Comment on above: Performed By: #### B MP, BNP #### [facility] [address] [place] [address] [address] Lacey Corado Urea nitrogen [Mass/Vol] 14.0 mg/dL Normal 7.0-18.0 [facility] Comment on above: Performed By: #### B MP, BNP #### [facility] [address] [place] [address] [address] Lacey Corado Urea nitrogen/Creatinine [Mass ratio] 17.3 mg/mg Normal [facility] Comment on above: Performed By: #### B MP, BNP #### [facility] [address] [place] [address] [address] Lacey Corado PROF CHEM 8 (BAS METB)on Anion gap [Moles/Vol] 14.1 mmol/L Normal [facility] Comment on above: Performed By: #### B MP ####[facility] [address] [place] [address]Dr. Lacey Corado Calcium [Mass/Vol] 9.2 mg/dL Normal 8.5-10.1 [facility] Comment on above: Performed By: #### B MP ####[facility] [address] [place] [address]Dr. Lacey Corado Chloride [Moles/Vol] 103 mmol/L Normal 98-107 [facility] Comment on above: Performed By: #### B MP ####[facility] [address] [place] [address]Dr. Lacey Corado CO2 [Moles/Vol] 28.4 mmol/L Normal 21.0-32.0 [facility] Comment on above: Performed By: #### B MP ####[facility] [address] [place] [address]Dr. Lacey Corado Creatinine [Mass/Vol] 0.71 mg/dL Normal 0.55-1.02 [facility] Comment on above: Performed By: #### B MP ####[facility] [address] [place] [address]Dr. Lacey Corado EGFR-AF ZAMBIAN >60 Normal >=60 [facility] Comment on above: Performed By: #### B MP ####[facility] [address] [place] [address]DrJossy Corado EGFR-NON AF ZAMBIAN >60 Normal >=60 [facility] Comment on above: Performed By: #### B MP ####[facility] [address] [place] [address]Dr. Lacey Corado Glucose [Mass/Vol] 139 mg/dL Critically high 74-106 [facility] Comment on above: Performed By: #### B MP ####[facility] [address] [place] [id number]. Maria Fernandagaurav Corado Potassium [Moles/Vol] 3.5 mmol/L Normal 3.5-5.1 [facility] Comment on above: Performed By: #### B MP ####[facility] [address] [place], [place] [address]Dr. Lacey Corado Sodium [Moles/Vol] 142 mmol/L Normal 136-145 [facility] Comment on above: Performed By: #### B MP ####[facility] [address] [place], [place] [address]Dr. Lacey Corado Urea nitrogen [Mass/Vol] 14.0 mg/dL Normal 7.0-18.0 [facility] Comment on above: Performed By: #### B MP ####[facility] [address] [place], [place] [address]Dr. Maria Fernandagaurav Corado Urea nitrogen/Creatinine [Mass ratio] 19.7 mg/mg Normal [facility] Comment on above: Performed By: #### B MP ####[facility] [address] [place], [place] [address]Dr. Lacey Corado CBC AUTO DIFFon 01-26-2023 BASO # 0.1 103/ul Normal 0.0-0.1 [facility] Comment on above: Performed By: #### C BC ####[facility] [address] [place] [address]Dr. Lacey Corado Basophils/100 WBC (Bld) 0.5 % Normal 0.2-2.0 [facility] Comment on above: Performed By: #### C BC ####[facility] [address] [place], [place] [address]Dr. Lacey Corado EO # 0.4 103/ul Normal 0.0-0.7 [facility] Comment on above: Performed By: #### C BC ####[facility] [address] [place] [address]Dr. Lacey Corado Eosinophils/100 WBC (Bld) 3.6 % Normal 0.9-7.0 [facility] Comment on above: Performed By: #### C BC ####[facility] [address] [place], [place] [address]Dr. Lacey Corado Erythrocyte distribution width (RBC) [Ratio] 13.6 % Normal 11.0-15.0 [facility] Comment on above: Performed By: #### C BC ####[facility] [id number] [place], [place] [address]Dr. Lacey Corado Hematocrit (Bld) [Volume fraction] 37.9 % Normal 36.0-48.0 [facility] Comment on above: Performed By: #### C BC ####[facility] [id number] [place], [place] [address]Dr. Lacey Corado Hemoglobin (Bld) [Mass/Vol] 12.4 g/dL Normal 12.0-16.0 [facility] Comment on above: Performed By: #### C BC ####[facility] [id number] [place], [place] [address]Dr. Lacey Corado IG # 0.04 10e3/ul Critically high 0.00-0.03 [facility] Comment on above: Performed By: #### C BC ####[facility] [id number] [place], [place] [address]Dr. Lacey Corado IG % 0.4 % Normal 0.0-0.5 [facility] Comment on above: Performed By: #### C BC ####[facility] [id number] [place], [place] [address]DrJossy Lacey Mak LYMPH # 1.9 103/ul Normal 1.2-3.8 [facility] Comment on above: Performed By: #### C BC ####[facility] Pwwsbche[address] [place], [place] [address]Dr. Lacey Mak Lymphocytes/100 WBC (Bld) 18.6 % Critically low 20.5-60.0 [facility] Comment on above: Performed By: #### C BC ####[facility] [address] [address]DrJossy Corado MANUAL DIFF REQ NO Normal [facility] Comment on above: Performed By: #### C BC ####[facility] [address] [address] [id number]. Lacey Corado MCH (RBC) [Entitic mass] 30.5 pg Normal 26.7-34.0 [facility] Comment on above: Performed By: #### C BC ####[facility] [address] [place] [address]Dr. Lacey Corado MCHC (RBC) [Mass/Vol] 32.7 g/dL Normal 29.9-35.2 [facility] Comment on above: Performed By: #### C BC ####[facility] Jscvfinjw[address] [place], [place] [address]Dr. Lacey Corado MCV (RBC) [Entitic vol] 93.3 fL Normal 81.0-99.0 [facility] Comment on above: Performed By: #### C BC ####[facility] [address]otw[address] [place], [place] [address]DrJossy Corado MONO # 0.8 103/ul Normal 0.3-0.8 [facility] Comment on above: Performed By: #### C BC ####[facility] M[address] [place], [place] [address]DrJossy Corado Monocytes/100 WBC (Bld) 7.8 % Normal 1.7-12.0 [facility] Comment on above: Performed By: #### C BC ####[facility] X[address]suqy[address] [place], [place] [address]DrJossy Corado NEUT # 7.0 103/ul Critically high 1.4-6.5 [facility] Comment on above: Performed By: #### C BC ####[facility] T[address] [place], [place] [address]DrJossy Corado Neutrophils/100 WBC (Bld) 69.1 % Normal 43.0-75.0 [facility] Comment on above: Performed By: #### C BC ####[facility] [address] [id number]. Lacey Corado Platelet mean volume (Bld) [Entitic vol] 9.4 fL Critically low 9.5-13.5 [facility] Comment on above: Performed By: #### C BC ####[facility] [address] [place] [id number]. Lacey Corado PLT 355 103/ul Normal 150-450 [facility] Comment on above: Performed By: #### C BC ####[facility] [address] [address]Dr. Lacey Corado RBC 4.06 106/ul Critically low 4.20-5.40 [facility] Comment on above: Performed By: #### C BC ####[facility] [address] [place] [address]Dr. Lacey Corado WBC 10.1 103/ul Normal 4.0-11.0 [facility] Comment on above: Performed By: #### C BC ####[facility] [address] [id number]. Lacey Corado CT HEAD WO CONon 01-26-2023 CT HEAD WO CON EXAMINATION: CT HEAD WO CON HISTORY: UNSPECIFIED INJURY OF HEAD, INITIAL ENCOUNTER COMPARISON: None. TECHNIQUE: CT examination of the head without IV contrast. Dose reduction techniques were achieved by using automated exposure control and/or adjustment of mA and/or kV according to patient size and/or use of iterative reconstruction technique. FINDINGS: There is generalized volume loss. There is decreased attenuation within the periventricular, deep, and subcortical white matter suggestive of chronic microvascular ischemic changes. There is no evidence of intracranial hemorrhage, mass, or midline shift. No extra-axial fluid collection is seen. The visualized paranasal sinuses and mastoid air cells are clear. No skull abnormalities are identified. IMPRESSION: 1. No acute intracranial abnormality. Electronically authenticated by: Reyes TRACY Date: 2023-01-26 01:23 Normal [facility] PROF 14(COMP METB)on 023 Albumin [Mass/Vol] 3.3 g/dL Critically low 3.4-5.0 [facility] Comment on above: Performed By: #### C MP #### [facility] [address] [place] [address] Dr. Lacey Corado Albumin/Globulin [Mass ratio] 0.8 {ratio} Normal [facility] Comment on above: Performed By: #### C MP #### [facility] [address] [place] [address] Dr. Lacey Corado ALP [Catalytic activity/Vol] 134 U/L Critically high 46-116 [facility] Comment on above: Performed By: #### C MP #### [facility] [address] [place] [address] Dr. Lacey Corado ALT [Catalytic activity/Vol] 21 U/L Normal 14-59 [facility] Comment on above: Performed By: #### C MP #### [facility] [address] [place] [address] Dr. Lacey Corado Anion gap [Moles/Vol] 15.5 mmol/L Normal [facility] Comment on above: Performed By: #### C MP #### [facility] [address] [place] [address] Dr. Lacey Corado AST [Catalytic activity/Vol] 19 U/L Normal 15-37 [facility] Comment on above: Performed By: #### C MP #### [facility] [address] [place] [address] Dr. Lacey Corado Bilirubin [Mass/Vol] 0.5 mg/dL Normal 0.2-1.0 [facility] Comment on above: Performed By: #### C MP #### [facility] [address] [place] [address] Dr. Lacey Corado Calcium [Mass/Vol] 9.1 mg/dL Normal 8.5-10.1 [facility] Comment on above: Performed By: #### C MP #### [facility] [address] [place] [address] Dr. Lacey Corado Chloride [Moles/Vol] 106 mmol/L Normal 98-107 [facility] Comment on above: Performed By: #### C MP #### [facility] [address] [address] [address] Lacey Corado CO2 [Moles/Vol] 26.2 mmol/L Normal 21.0-32.0 [facility] Comment on above: Performed By: #### C MP #### [facility] [address] [address] [address] Lacey Corado Creatinine [Mass/Vol] 0.95 mg/dL Normal 0.55-1.02 [facility] Comment on above: Performed By: #### C MP #### [facility] [address] [address] [address] Lacey Corado EGFR-AF ZAMBIAN >60 Normal >=60 [facility] Comment on above: Performed By: #### C MP #### [facility] [address] [place] [address] Dr. Lacey Corado EGFR-NON AF ZAMBIAN 56 mL/min/1.73m2 Critically low >=60 [facility] Comment on above: Performed By: #### C MP #### [facility] [address] [address] [address] Lacey Corado Globulin (S) [Mass/Vol] 4.0 g/dL Normal [facility] Comment on above: Performed By: #### C MP #### [facility] [address] [address] [address] Lacey Corado Glucose [Mass/Vol] 135 mg/dL Critically high 74-106 [facility] Comment on above: Performed By: #### C MP #### [facility] [address] [address] [address] Lacey Corado Potassium [Moles/Vol] 3.7 mmol/L Normal 3.5-5.1 [facility] Comment on above: Performed By: #### C MP #### [facility] [address] [address] [address] Lacey Corado Protein [Mass/Vol] 7.3 g/dL Normal 6.4-8.2 [facility] Comment on above: Performed By: #### C MP #### [facility] [address] [place] [address] Dr. Lacey Corado Sodium [Moles/Vol] 144 mmol/L Normal 136-145 [facility] Comment on above: Performed By: #### C MP #### [facility] [address] [place] [address] Dr. Lacey Corado Urea nitrogen [Mass/Vol] 17.0 mg/dL Normal 7.0-18.0 [facility] Comment on above: Performed By: #### C MP #### [facility] [address] [place] [address] Dr. Lacey Corado Urea nitrogen/Creatinine [Mass ratio] 17.9 mg/mg Normal [facility] Comment on above: Performed By: #### C MP #### [facility] [address] [place] [address] Dr. Lacey Corado PROTIMEon 01-26-2023 INR Coag (PPP) [Relative time] 1.03 {INR} Normal [facility] Comment on above: Performed By: #### P TT, PT #### [facility] [address] [place] [address] Dr. Lacey Corado INR GUIDELINES SEE BELOW Normal [facility] Comment on above: Result Comment: JAD RED INR: 2.0 - 3.0 CONDITIONS NOT LISTED BELOW 2.5 - 3.5 FOR PROSTHETIC HEART VALVE REPLACEMENT 2.5 - 3.5 RECURRENT THROMBOSIS Performed By: #### P TT, PT #### [facility] [address] [place] [address] Dr. Lacey Corado PT Coag (PPP) [Time] 10.9 s Normal 9.0-11.6 [facility] Comment on above: Performed By: #### P TT, PT #### [facility] [address] [place] [address] Dr. Lacey Corado PTTon 01-26-2023 aPTT Coag (Bld) [Time] 22.2 s Critically low 22.3-36.2 [facility] Comment on above: Performed By: #### P TT, PT #### [facility] [address] [place], [place] [id number] Dr. Lacey Corado XR FEMUR RTon 01-26-2023 XR FEMUR RT EXAM: XR KNEE LT 4V or >, XR FEMUR RT, XR KNEE RT 4V or > HISTORY: Pain of joint of knee COMPARISON: None. TECHNIQUE: 2 views of the right femur, 4 views of the right knee, and 4 views of the left knee were obtained. FINDINGS: Right femur and right knee: No acute fracture or dislocation is seen. Please note that the right femoral head is excluded from the [id number]. There are advanced degenerative changes of the medial compartment of the right knee with mild degenerative changes of the lateral and patellofemoral compartments. There is no significant right knee joint effusion though evaluation is limited due to patient positioning. Atherosclerotic calcifications are noted. Left knee: No acute fracture or dislocation is seen. There are mild tricompartmental degenerative changes. There is no significant left knee joint effusion. IMPRESSION: 1. No acute fracture or dislocation of either knee or the right femur is seen. Please note that the right femoral head is not completely imaged. Consider dedicated right hip radiographs for further evaluation. If there is concern for an occult injury of the right femur, cross-sectional imaging is recommended. Otherwise, if pain persists, repeat radiographs are recommended in 7-10 days. Electronically authenticated by: Reyes TRACY Date: 2023-01-26 01:27 Normal [facility] EKG Rhythm Stripon 3 [facility] EKG [facility]hythm Stripon 3 [facility] EKG [facility]hythm Stripon 3 [facility] [employer] [employer] [facility] with 1 degree AV block [facility] [employer] [facility] with 1st degree AV block [facility] EKG [facility]hythm Stripon [facility] Basic Metabolic Panelon 11-27 Anion gap [Moles/Vol] 10 mmol/L 9 - 17 mmol/L [facility] Calcium [Mass/Vol] 9.2 mg/dL 8.6 - 10. 4 mg/dL [facility] Chloride [Moles/Vol] 101 mmol/L 98 - 10 7 mmol/L [facility] CO2 [Moles/Vol] 26 mmol/L 20 - 31 mmol/L [facility] Creatinine [Mass/Vol] 0.9 mg/dL 0.50 - 0.90 mg/dL [facility] GFR/1.73 sq M.predicted MDRD (S/P/Bld) [Vol rate/Area] - PINF [facility] Comment on above: These results are not intended for use in patients <18 years of age. eGFR results are calculated without a race factor using the 2020 CKD-EPI equation. Careful clinical correlation is recommended, particularly when comparing to results calculated using previous equations. The CKD-EPI equation is less accurate in patients with extremes of muscle mass, extra-renal metabolism of creatine, excessive creatine ingestion, or following therapy that affects renal tubular secretion. Glucose [Mass/Vol] 100 mg/dL High 70 - 99 mg/dL [facility] Interpretation and review of laboratory results Abnormal [facility] Potassium [Moles/Vol] 4.3 mmol/L 3.7 - 5.3 mmol/L [facility] Sodium [Moles/Vol] 137 mmol/L 135 - 144 mmol/L [facility] Urea nitrogen (BldV) [Mass/Vol] 37 mg/dL High 8 - 23 mg/dL [facility] Urea nitrogen/Creatinine (Bld) [Mass ratio] 41 High 9 - 20 [facility] Basic Metabolic Profon 12-22 Anion gap [Moles/Vol] 10 mmol/L Normal 9-17 [facility] Comment on above: Performed By: #### U AX #### [facility] [address] [place] [address] Application Development Intern: Ronaldo Reed MD BUN/CRE Ratio 41 High 9-20 [facility] Comment on above: Performed By: #### U AX #### [facility] [address] [place] [address] Application Development Intern: Ronaldo Reed MD Calcium [Mass/Vol] 9.2 mg/dL Normal 8.6-10.4 [facility] Comment on above: Performed By: #### U AX #### [facility] [address] [place] [address] Application Development Intern: Ronaldo Reed MD Chloride [Moles/Vol] 101 mmol/L Normal 98-107 [facility] Comment on above: Performed By: #### U AX #### [facility] [address] [place] [address] Application Development Intern: Ronaldo Reed MD CO2 [Moles/Vol] 26 mmol/L Normal 20-31 [facility] Comment on above: Performed By: #### U AX #### [facility] [address] [place] [address] Application Development Intern: Ronaldo Reed MD Creatinine [Mass/Vol] 0.90 mg/dL Normal 0.50-0.90 [facility] Comment on above: Performed By: #### U AX #### [facility] [address] [place] [address] Application Development Intern: Ronaldo Reed MD GFR/1.73 sq M.predicted among non-blacks MDRD (S/P/Bld) [Vol rate/Area] mL/min/{1.73_m2} Normal >60 [facility] Comment on above: Result Comment: These results are not intended for use in patients <18 years of age. eGFR results are calculated without a race factor using the 2020 CKD-EPI equation. Careful clinical correlation is recommended, particularly when comparing to results calculated using previous equations. The CKD-EPI equation is less accurate in patients with extremes of muscle mass, extra-renal metabolism of creatine, excessive creatine ingestion, or following therapy that affects renal tubular secretion. Performed By: #### U AX #### [facility] [address] [place] [address] Application Development Intern: Ronaldo Reed MD Glucose [Mass/Vol] 100 mg/dL High 70-99 [facility] Comment on above: Performed By: #### U AX #### [facility] [address] [place] [address] Application Development Intern: Ronaldo Reed MD Potassium [Moles/Vol] 4.3 mmol/L Normal 3.7-5.3 [facility] Comment on above: Performed By: #### U AX #### [facility] [address] [place] [address] Application Development Intern: Ronaldo Reed MD Sodium [Moles/Vol] 137 mmol/L Normal 135-144 [facility] Comment on above: Performed By: #### U AX #### [facility] [address] [place] [address] Application Development Intern: Ronaldo Reed MD Urea nitrogen [Mass/Vol] 37 mg/dL High 8-23 [facility] Comment on above: Performed By: #### U AX #### [facility] [address] [place] [address] Application Development Intern: Ronaldo Reed MD EKG 12 Leadon 12-22-2022 Atrial Rate 75 BPM [facility] Work Phone: P Swain 26 degrees [facility] Work Phone: P-R Interval 222 ms [facility] [employer] Work Phone: Q-T Interval 376 ms [facility] [employer] Work Phone: QRS Duration 92 ms [facility] [employer] Work Phone: QTc Calculation ([place]az[place]) 419 ms [facility] [employer] Work Phone: R Swain 12 degrees [facility] [employer] Work Phone: T Swain 14 degrees [employer] [employer] Work Phone: Ventricular Rate 75 BPM [facility] [employer] Work Phone: Sinus rhythm with 1st degree A-V block Possible Anterior infarct , age undetermined Abnormal ECG [facility] Андрей Rodriguez MD - 12/22/2022 Sinus rhythm with 1st degree A-V block Possible Anterior infarct , age undetermined Abnormal ECG [facility] [employer] Work Phone: [facility] [employer] Work Phone: EKG Rhythm Stripon 3 [facility] [employer] [facility] [employer] absent T wave? prolonged QT? [facility] [employer] [facility] [employer] absent T wave? prolonged QT? [facility] Troponinon 12-22-2022 Troponin, High Sens 33 ng/L High 0-14 [facility] Comment on above: Result Comment: High Sensitivity Troponin values cannot be compared with other Troponin methodologies. Performed By: #### U AX #### [facility] [address] [place] [address] Application Development Intern: Ronaldo Reed MD Basic Metabolic Panelon 11-27 Anion gap [Moles/Vol] 12 mmol/L 9 - 17 mmol/L [facility] Calcium [Mass/Vol] 9.6 mg/dL 8.6 - 10. 4 mg/dL [facility] [employer] Chloride [Moles/Vol] 100 mmol/L 98 - 10 7 mmol/L [facility] CO2 [Moles/Vol] 22 mmol/L 20 - 31 mmol/L [facility] Creatinine [Mass/Vol] 1.26 mg/dL High 0.50 - 0.90 mg/dL [facility] GFR/1.73 sq M.predicted MDRD (S/P/Bld) [Vol rate/Area] 42 mL/min/{1.73_m2} Low - PINF [facility] Comment on above: These results are not intended for use in patients <18 years of age. eGFR results are calculated without a race factor using the 2020 CKD-EPI equation. Careful clinical correlation is recommended, particularly when comparing to results calculated using previous equations. The CKD-EPI equation is less accurate in patients with extremes of muscle mass, extra-renal metabolism of creatine, excessive creatine ingestion, or following therapy that affects renal tubular secretion. Glucose [Mass/Vol] 119 mg/dL High 70 - 99 mg/dL [facility] Interpretation and review of laboratory results Abnormal [facility] Potassium [Moles/Vol] 5.2 mmol/L 3.7 - 5.3 mmol/L [facility] Sodium [Moles/Vol] 134 mmol/L Low 135 - 144 mmol/L [facility] Urea nitrogen (BldV) [Mass/Vol] 38 mg/dL High 8 - 23 mg/dL [facility] Urea nitrogen/Creatinine (Bld) [Mass ratio] 30 High 9 - 20 [facility] Basic Metabolic Profon 12-21 Anion gap [Moles/Vol] 12 mmol/L Normal 9-17 [facility] Comment on above: Performed By: #### U AX #### [facility] [address] [place] [address] Application Development Intern: Ronaldo Reed MD BUN/CRE Ratio 30 High 9-20 [facility] Comment on above: Performed By: #### U AX #### [facility] [address] [place] [address] Application Development Intern: Ronaldo Reed MD Calcium [Mass/Vol] 9.6 mg/dL Normal 8.6-10.4 [facility] Comment on above: Performed By: #### U AX #### [facility] [address] [place] [address] Application Development Intern: Ronaldo Reed MD Chloride [Moles/Vol] 100 mmol/L Normal 98-107 [facility] Comment on above: Performed By: #### U AX #### [facility] [address] [place] [address] Application Development Intern: Ronaldo Reed MD CO2 [Moles/Vol] 22 mmol/L Normal 20-31 [facility] Comment on above: Performed By: #### U AX #### [facility] [address] [place] [address] Application Development Intern: Ronaldo Reed MD Creatinine [Mass/Vol] 1.26 mg/dL High 0.50-0.90 [facility] Comment on above: Performed By: #### U AX #### [facility] [address] [place] [address] Application Development Intern: Ronaldo Reed MD GFR/1.73 sq M.predicted among non-blacks MDRD (S/P/Bld) [Vol rate/Area] 42 mL/min/{1.73_m2} Low >60 [facility] Comment on above: Result Comment: These results are not intended for use in patients <18 years of age. eGFR results are calculated without a race factor using the 2020 CKD-EPI equation. Careful clinical correlation is recommended, particularly when comparing to results calculated using previous equations. The CKD-EPI equation is less accurate in patients with extremes of muscle mass, extra-renal metabolism of creatine, excessive creatine ingestion, or following therapy that affects renal tubular secretion. Performed By: #### U AX #### [facility] [address] [place] [address] Application Development Intern: Ronaldo Reed MD Glucose [Mass/Vol] 119 mg/dL High 70-99 [facility] Comment on above: Performed By: #### U AX #### [facility] [address] [place] [address] Application Development Intern: Ronaldo Reed MD Potassium [Moles/Vol] 5.2 mmol/L Normal 3.7-5.3 [facility] Comment on above: Performed By: #### U AX #### [facility] [address] [id number] Application Development Intern: Ronaldo Reed MD Sodium [Moles/Vol] 134 mmol/L Low 135-144 [facility] Comment on above: Performed By: #### U AX #### [facility] [facility] [address] [id number] Application Development Intern: Ronaldo Reed MD Urea nitrogen [Mass/Vol] 38 mg/dL High 8-23 [facility] Comment on above: Performed By: #### U AX #### [facility] [address] [id number] Application Development Intern: Ronaldo Reed MD CBC with Auto Differentialon 12-21-2022 Absolute Eos # 0.30 [facility] Absolute Lymph # 2.50 [facility] Absolute Archer # 0.60 [facility] Basophils (Bld) [#/Vol] 0.00 10*3/uL [facility] Basophils/100 WBC (Bld) 0 % 0 - 2 % [facility] Differential Type YES [facility] Eosinophils/100 WBC (Bld) 2 % 0 - 5 % [facility] Hematocrit (Bld) [Volume fraction] 34.5 % Low 36 - 46 % [facility] Hemoglobin (Bld) [Mass/Vol] 11.4 g/dL Low 12.0 - 16.0 g/dL [facility] Interpretation and review of laboratory results Abnormal [facility] Lymphocytes/100 WBC (Bld) 23 % 15 - 40 % [facility] MCH (RBC) [Entitic mass] 31.5 pg 26 - 34 pg [facility] MCHC (RBC) [Mass/Vol] 33.0 g/dL 31 - 37 g/dL B ON [facility] MCV (RBC) [Entitic vol] 95.2 fL 80 - 100 fL [facility] Monocytes/100 WBC (Bld) 5 % 4 - 8 % [facility] Platelet distribution width (Bld) [Ratio] 14.1 % 12.1 - 15.2 % [facility] Platelets (Bld) [#/Vol] 428 10*3/uL [facility] RBC (Bld) [#/Vol] 3.63 10*6/uL Low 4.0 - 5.2 m/uL [facility] Segmented neutrophils/100 WBC (Bld) 70 % 47 - 75 % [facility] Segs Absolute 7.50 High [facility] WBC (Bld) [#/Vol] 10.9 10*3/uL [facility] CBC with Diffon 12-21-2022 Abs. Basophil 0.00 k/uL Normal 0.0-0.2 [facility] Comment on above: Performed By: #### C ADAN TROPI #### [facility] [address] [place] [address] Application Development Intern: Ronaldo Reed MD Abs.Neutrophil (Seg) 7.50 k/uL High 2.5-7.0 [facility] Comment on above: Performed By: #### C ADAN TROPI #### [facility] [address] [id number] Application Development Intern: Ronaldo Reed MD Auto Diff Performed YES Normal [facility] Comment on above: Performed By: #### C ADAN TROPI #### [facility] [address] [place] [address] Application Development Intern: Ronaldo Reed MD Basophils/100 WBC (Bld) 0 % Normal 0-2 [facility] Comment on above: Performed By: #### C ADAN TROPI #### [facility] [address] [place], [place] [phone] Application Development Intern: Ronaldo Reed MD Eosinophils (Bld) [#/Vol] 0.30 10*3/uL Normal 0.0-0.4 [facility] Comment on above: Performed By: #### C DP, TROPI #### [facility] [address] [place] [address] Application Development Intern: Ronaldo Reed MD Eosinophils/100 WBC (Bld) 2 % Normal 0-5 [facility] Comment on above: Performed By: #### C DP, TROPI #### [facility] [address] [place] [address] Application Development Intern: Ronaldo Reed MD Erythrocyte distribution width (RBC) [Ratio] 14.1 % Normal 12.1-15.2 [facility] Comment on above: Performed By: #### C DP, TROPI #### [facility] [address] [phone] Application Development Intern: Ronaldo Reed MD Hematocrit (Bld) [Volume fraction] 34.5 % Low 36-46 [facility] Comment on above: Performed By: #### C DP, TROPI #### [facility] [address] [place] [address] Application Development Intern: Ronaldo Reed MD Hemoglobin (Bld) [Mass/Vol] 11.4 g/dL Low 12.0-16.0 [facility] Comment on above: Performed By: #### C DP, TROPI #### [facility] [address] [place] [address] Application Development Intern: Ronaldo Reed MD Lymphocytes (Bld) [#/Vol] 2.50 10*3/uL Normal 1.0-4.8 [facility] Comment on above: Performed By: #### C DP, TROPI #### [facility] [address] [place], [place] [phone] Application Development Intern: Ronaldo Reed MD Lymphocytes/100 WBC (Bld) 23 % Normal 15-40 [facility] Comment on above: Performed By: #### C DP, TROPI #### [facility] [address] [place] [address] Application Development Intern: Ronaldo Reed MD MCH (RBC) [Entitic mass] 31.5 pg Normal 26-34 [facility] Comment on above: Performed By: #### C DP, TROPI #### [facility] [address] [place] [address] Application Development Intern: Ronaldo Reed MD MCHC (RBC) [Mass/Vol] 33.0 g/dL Normal 31-37 [facility] Comment on above: Performed By: #### C DP, TROPI #### [facility] [address] [place] [address] Application Development Intern: Ronaldo Reed MD MCV (RBC) [Entitic vol] 95.2 fL Normal 80-100 [facility] Comment on above: Performed By: #### C DP, TROPI #### [facility] [address] [place] [address] Application Development Intern: Ronaldo Reed MD Monocytes (Bld) [#/Vol] 0.60 10*3/uL Normal 0.0-1.0 [facility] Comment on above: Performed By: #### C DP, TROPI #### [facility] [address] [place] [address] Application Development Intern: Ronaldo Reed MD Monocytes/100 WBC (Bld) 5 % Normal 4-8 [facility] Comment on above: Performed By: #### C DP, TROPI #### [facility] [address] [place], [place] [phone] Application Development Intern: Ronaldo Reed MD Neutrophil (Seg) 70 % Normal 47-75 [facility] Comment on above: Performed By: #### C DP, TROPI #### [facility] [address] [place] [address] Application Development Intern: Ronaldo Reed MD Platelets (Bld) [#/Vol] 428 10*3/uL Normal 140-450 [facility] Comment on above: Performed By: #### C DP, TROPI #### [facility] [address] [place] [address] Application Development Intern: Ronaldo Reed MD RBC (Bld) [#/Vol] 3.63 10*6/uL Low 4.0-5.2 [facility] Comment on above: Performed By: #### C DP, TROPI #### [facility] [address] [place], [place] [phone] Application Development Intern: Ronaldo Reed MD WBC (Bld) [#/Vol] 10.9 10*3/uL Normal 3.5-11.0 [facility] Comment on above: Performed By: #### C DP, TROPI #### [facility] [address] [place], [place] [phone] Application Development Intern: Ronaldo Reed MD EKG Rhythm Stripon [facility] AM [facility] Troponinon 12-21-2022 Interpretation and review of laboratory results Abnormal [facility] Troponin, High Sensitivity 33 ng/L High 0 - 14 ng/L [facility] Comment on above: High Sensitivity Tro ponin values cannot be compared with other Troponin methodologies. [facility] Troponin, High Sens 34 ng/L High 0-14 [facility] Comment on above: Result Comment: High Sensitivity Troponin values cannot be compared with other Troponin methodologies. Performed By: #### C DP, TROPI #### [facility] [address] [place], [place] [phone] Application Development Intern: Ronaldo Reed MD Interpretation and review of laboratory results Abnormal [facility] Troponin, High Sensitivity 34 ng/L High 0 - 14 ng/L [facility] Comment on above: High Sensitivity Tro ponin values cannot be compared with other Troponin methodologies. [facility] Troponin, High Sens 48 ng/L High 0-14 [facility] Comment on above: Result Comment: High Sensitivity Troponin values cannot be compared with other Troponin methodologies. Performed By: #### U AX #### [facility] [address] [place], [place] [phone] Application Development Intern: Ronaldo Reed MD Interpretation and review of laboratory results Abnormal [facility] Troponin, High Sensitivity 48 ng/L High 0 - 14 ng/L [facility] Comment on above: High Sensitivity Tro ponin values cannot be compared with other Troponin methodologies. [facility] UA w/Reflex Cultureon 2022 Bilirubin, SemiQt,Ur Negative Normal NEG [facility] Comment on above: Performed By: #### U AX #### [facility] [address] [place] [address] Application Development Intern: Ronaldo Reed MD Blood, Urine Negative Normal NEG [facility] Comment on above: Performed By: #### U AX #### [facility] [address] [place] [address] Application Development Intern: Ronaldo Reed MD Clarity (U) Clear Normal CLEAR [facility] Comment on above: Performed By: #### U AX #### [facility] [address] [facility] [place], [place] [phone] Application Development Intern: Ronaldo Reed MD Color (U) Yellow Normal YEL [facility] Comment on above: Performed By: #### U AX #### [facility] [address] [place] [address] Application Development Intern: Ronaldo Reed MD Comment Normal [facility] Comment on above: Performed By: #### U AX #### [facility] [address] [place], [place] [phone] Application Development Intern: Ronaldo Reed MD Glucose Ql (U) Negative Normal NEG [facility] Comment on above: Performed By: #### U AX #### [facility] [address] [phone] Application Development Intern: Ronaldo Reed MD Ketones Ql (U) Negative Normal NEG [facility] Comment on above: Performed By: #### U AX #### [facility] [address] [place] [address] Application Development Intern: Ronaldo Reed MD Leukocyte esterase Test strip Ql (U) Negative Normal NEG [facility] Comment on above: Performed By: #### U AX #### [facility] [address] [place] [address] Application Development Intern: Ronaldo Reed MD Nitrite,Ur Negative Normal NEG [facility] Comment on above: Performed By: #### U AX #### [facility] [address] [place] [address] Application Development Intern: Ronaldo Reed MD PH,Ur 5.0 Normal 5.0-8.0 [facility] Comment on above: Performed By: #### U AX #### [facility] [address] [place] [address] Application Development Intern: Ronaldo Reed MD Protein Ql (U) TRACE Abnormal NEG [facility] Comment on above: Performed By: #### U AX #### [facility] [address] [phone] Application Development Intern: Ronaldo Reed MD Spec. [place],Ur 1.020 Normal 1.005-1.030 [facility] Comment on above: Performed By: #### U AX #### [facility] [address] [place] [address] Application Development Intern: Ronaldo Reed MD Urobilinogen,Ur Normal Normal NORM [facility] Comment on above: Performed By: #### U AX #### [facility] [address] [place] [address] Application Development Intern: Ronaldo Reed MD Urinalysis with Reflex to Cu ltureon 12-21-2022 Bilirubin Urine Negative NEGATIVE [facility] Color, UA Yellow Yellow [facility] Glucose, Ur Negative NEGATIVE [facility] Interpretation and review of laboratory results Abnormal [facility] Ketones Ql (U) Negative NEGATIVE [facility] Leukocyte esterase Test strip Ql (U) Negative NEGATIVE [facility] Nitrite, Urine Negative NEGATIVE [facility] pH, UA 5.0 5.0 - 8.0 [facility] Protein, UA TRACE Abnormal NEGATIVE [facility] Specific [place], UA 1.020 1.005 - 1.030 [facility] Turbidity UA Clear Clear [facility] Urinalysis Comments [facility] Urine Hgb Negative NEGATIVE [facility] Urobilinogen, Urine Normal Normal [facility] Coding Summary.on 12-18-2022 Coding Summary. CD:[id number] Gh0bWw+PGhlYWQ+PE1FV GXxG65lwZUhyE7UU2oEL S6QIBEZKWALYQ0ZZW2gw AG2QCelU8LdblPa WidkzDEzAP73ERk9VFB4 rKctZSsdtE3eiDRdC3t2 BlVuON27pW82FBmaMGOl RvU4OnPpfluhnIOg E9mhZfYayAHsNyf+PHRh YmxlIHdpZHRoPScxMDAl RbGqlGhsGN9gLx0xMCOv LWNvbGxhcHNlOiBj t4ahGPGgNZdyAO7qlHyu V8VslIP8WQGvc6u7Pe06 dHI+IAHxBOY9sSxyZZgs h796CoRyw7ztTTP5 uWTvLNxjSCD1H70tv1P0 LLEeYTWzDQI3mDW6nU8d jIylnyqfV2MpsVMqVvH8 GXA4mSUeyL5cpDtv vvexdB6yThr+F94LCU4O MENLEL8BUqr5A5AyBson dHI+AN92HITaST95vVIv mOMil0ljeXb7VzEe JLXfZTF0iAypPGkqg2Eh LUZkM73wgWNko1E0ZNAe lFaayQOgEcJcxRH0qO0u FDlukkqlc2dokstl Cjcvb6tkiz24wQ73Q48j VGahGTLcPFN2NNMkBDKo fVlcvi0nxG8zAr4+IDxj f8ghl3nopEn4EfSp DXDgdaHaaFdgEGM2j8Er Qu75D2BpaMmsx6QrFbf7 xj51lPLtc6M8aXA9WOwk NIWvuU1vCOfkFwF8 YMYuPyXnkI87lEDcQMqu Kx9guCtbpAbiSJ5xYYTr fzkfSMEqpX8vQQPgdANf zTpxQU2xTVGzyfbc r930HeLtNEH6FEJewLGw Q1ZzjL2mOjXdDOQlMIZc M3TszGPrULuoB759VHzs CwH0LYSjvqFtX8Qn XLFbcGetLcZ1s5N2Hw0P j2AhpiisTIO1FPppBIOb GnMyNxHzYvK0M2MyJvf1 BOVshApkVC1tW6Eb VLCurwtqddcnmTI0OBDf LGLogF87wVSnAYqoJn0y t1S5e473GVQqBOTmhW50 Zn1cgKlqLTPspKFU sS2vhdszo4oexabmJqRv DFJcCFv5ZNf5PSHqbTtk ZrVaJNN0VcQ2RQI3zWDl oZ7poDizvvbucC8t Oyc+D06ogO8iNCO0EWX1 wykiWYAawvThKZ04RD86 E3LoEaexhZCuaUN+PGRp pgDgsUbnPQ9rKuSb s8lzi0VjATnzM4ZkAZZj HDopDps0MDDwENT3nOA1 rY1iUIKtEQgor3R7fRU6 V8LgbzPfdj7yh8ww ERZzOLldU20nwAXnt7Y9 EFPumBE3TODrrPipHnGe vW61Eag+LVRfyDsbt1Op Kivkl7suy6bywMw4 IjMwJSIgdmFsaWduPSJ0 l7QmEa52U81aODlnMRFq OSWgQJFiWTAkwVmyxz5d nX2rZp1+PGNvbCB3 mVK1mF9uOUHaHeA3EMjr G133OiEtwCAoSebjr9ga q3oycEu7ZtAbNLBalxRy rJijMUQ8c0PuVn82 G33iOGmdATXxJDPeYIXt AMMcbJvltn6zzW4aGh8+ BO2vw5vzvr56zK05sJZ+ PRZyMYH0pUnmBTxn CDPblA7eXRtqDkL5YCEa DqBylK35aVOjTJxnNm1x vPbegScuBG1fMMHsnrcg c160TpYvo9hgDNTb mAUtIRwnWGJ1L05ws0V4 NOBcDOHhVQM5pQK4dA8k bGlnbjogbGVmdDsgdmVy vVjcLYupLCmjA449 IHRvcDsnPlBhdGllbnQg HkAgJYr2B9MjIwu5UAMj kMbnMF3gbDUlQSisEm0g cXbveJjsCW7eJCCc vhsgy520GpSyo3rrDKGs qPTyHSnoUHZ3Z21fc9Y0 WGYcEEPkTXO9cLK6oT0e bGlnbjogbGVmdDsg jrXigLvfQUfeFGxnL507 IHRvcDsnPkJpcnRoIERh dVO6MW40GV89bIXuf7I7 kBT7M8ReVBOwcogh bkoedIM8NCSnBSHczV38 Tq7qqAzqOs9vLSKmMDP0 CHRduNOfC8KygG0sHjNa DJLiHDGkC9EtwAXa LJtvX695IIirYyF7ETUv vfXwB5EoQKElsAebFsD7 f3I5Tg2ZQ8W8CS17AH02 qZMse3V5vUW7L6Kv HOMfnatczobjnNO7KEKo KYZuoN31Zb4svMxmGp8x LXOoARU0KXDxjWHoK2Sc mT2iYeRaIISdQRCq O5PlxHFzILnbR587SLsn FgS7SQJtppLyD7JnXUNv zIotRgE9f9B9Fi9DMFy9 VB06AT45nIPvf6D3 qUT7G4HjNMMjpvyegkqb uQJ0BUEfZBJksR91Mm9v iKhqCt3iZRBxBKJ7USPb gOLsP2BydM0fKyFf VMIxOIBjR2WxtBSqTBoa F042JZdxVlQ2FALhquNd F5RiBSNvtGoyMhP3w2C4 El8NZUFlPM83ZDH0 cEO2CT71FB09J3HyYqdp dGFibGU+PHRhYmxlIHdp ZHRoPScxMDAlJyBzdHls HF5vPr5aXBYiEUIi nAtcmHQvHvKal8viXVFm AIzdUS7gkXzsG6IalGV8 TOWhn6o7Ju40C92eV3Fh dXA+FRIopVJ9yLG9 nM6pPdKfIqX2XUpvX615 OpMvhCKgIuwqm1kjb9fw aGj0ZsQ7LDVtqsUvqDty NFZ9e3BpXf80W41o IHdpZHRoPSIxNSUiIHZh fItjmv3gdG4nBw5+PGNv sYY8bNW2pA0mQpHjMjJ2 PPqvF820YfYnkIXc Gxefr2jng9qarQk7ZzSg SRMoggHpkSqqSNI7b0Ux Pb37O7FveIcys5LqVgo0 vm14vCElp9E7sMO5 D5MyNMDwlulawKWukAzc OS4yHYExopgpSVOhlF5h AJOaA8x6NeZmUrN2ERhj K7VovlK2YNWjfKHj PLxrWLU0R41sq5X6FRLm CKVrRWE9jYP5iS0pgJan bjogbGVmdDsgdmVydGlj BLlaAOzeM295BJUn eJioLHBvyJ0uVSMuaJMo cPneRG0cXVBauwzjNqAK MJPHU5vtUDLTNQ4HXUSy TTwvdGQ+PHRkIHN0 nPriDJyuKOJleL8jNGKv T6y1MeFjUpJ7IAqoY1Li TMMnmgygJj03bW9dVsBr RlZ7NWqjR3RmijZ1 AUJmeFAlYBtmSRG3Z37c l8O8DGJkONEbXTG1kZY7 jZ6xvIrrxppucNXuqLbv dmVydGljYWwtYWxp L063VVIqrRhuZvOxGgV2 XlU3Jqo6X6MyMjc3LUDj sSalOQ2pxLHuCUgjAj3f rQwcdEuoNV5pDCPg paagPTGzrI3uIQAgcRRv vMneFF3yACEulfpwb081 ZeSiBLH7OBIixKOpJ1Av cJ2gHtDvIIEkJYWu Z8ErsXQpTRxoA756WFdz EeD6AKEtrlJeR8YuADOk iCkpPhM2l8O9Te29XSDA ZWFyczwvdGQ+PHRk IYX2qHlyISiaCDWkcW8z RIFvX8q5ApBaRvR4GVtg C0DqJGAdzznwQn64yS4l FsDdHhR4HUwnA1Av buA4WYGxkZVaAHlcXEI4 U69wa8K9CXNgGOWuMGI3 tBN9iD6hsFuaruapoYHm dDsgdmVydGljYWwt AZlhC404JFKphRjuIgRf bWFsZTwvdGQ+PHRkIHN0 hPusQSzgABNmzP3dOBKx Q1b8PdZoYfE5VRwm B9RtFZHfbrziGc38jM8r CfNoShA9TKkcC1CktkI1 JGKbbCFcWFbuCOW1U41c k2X5WGVyHHBsDQD2 gAY2sG4gvTlxafipbAVk dDsgdmVydGljYWwtYWxp D786GQUwqAjsDl9ze4Op jyA1mD4jHE01CL05 R6EwIxpaqHCgoKS+PHRh YmxlIHdpZHRoPScxMDAl NgXloLghHM4uZl6dMHIv LWNvbGxhcHNlOiBj b1dnRXFuYEzcST8djOqc S6IoqZZ1JFRnr5q3Lr55 L39kU0RhbJT+PGNvbCB3 oJA5fA8eAhMyNnO8 TXkbU920VqHlwMPjGiyd d4uwh9zyiRu7SlYgEGIi seBfkZdlVSX8i3LpHd85 B69zKIfpDPMoBNSg TUObFVMkfOhdvf9adT9a Ii8+EVMpoHT3lRU8qB7m PqNrVfR4SGqyE433QmSq pMUuYwjpZ07nY3Hu dXA+KZOqPxf3OFZueAsh DA4wkKCwFNhxLx9yBUV3 WuLzEhWaAKibN6FuGBWe kenwshuybCW8MLDr BRWuwS72Xn5xpMteMh5o XBEmWLS4YJXmgQUuT7Cv dY2zLkRbOQKwMELpO4Zb oVGpOMtkQ342RCry TrK0UASyknFsQ1AwQDNg kQnmXhC0a3U3Hv6AhNwj hFYkPC1zKmXzPYi5W3Qy Rxu7KYDtqJzzMK8g lKObIVbhTp7ubOoynZor HB3bPBQalxwwv473UlXc r2mvRBKjdTDjLBylLJG6 F79oc6C6MWAlYHXb YYJ0nBD7dF2fpRpipchz bGVmdDsgdmVydGljYWwt MLvsW815XWLzyLwtWjAE Kzt5N0TnZnq8AGBg oVqxCB8nqGShPEgwYt9n mTnjhZnhYD4eLONeudhx n646JfOvx5diDNPxcCAp GGofAEF4H45qs4V1 LVPnFSBeRUM0lJA6uS6r bGlnbjogbGVmdDsgdmVy lOfhSFcfDMjfM652SUPm sXopXx6TPug5Q4Cf Ipn7TGRaqLneQI8zuUNs IFhuJb1toGlkqPnlGW1e EXHdbbxbz102IjSco6ba IDEwcHQgVGltZXM7 A02ri7B6SYWqPXAoITT1 jUY3pL9udBkmpmipiXIi dDsgdmVydGljYWwtYWxp H049NQJudPznMrTs eWVyOjwvdGQ+AO35lh56 S9QgTeveFop4EJDgIME0 xCJ7sN4vAFIaFBamq1N3 pBB4K2SsynQssu6m b2xs (more content not included)... Normal [facility] Consultation Noteon 12-18-19 Consultation Note [id number] #1.00CD:127 [facility] Discharge Instructionson Discharge Instructions [id number] #1.00CD:127 [facility] Insurance Correspondence Off iceon 12-18-2022 Insurance Correspondence Office [id number]# 1.00CD:127 Normal [facility] Outside Hospital Correspo ndenceon 12-18-2022 Outside Hospital Correspondence [id number] #1.00CD:127 Normal [facility] Transfer Documentson 023 Transfer Documents [id number] #1.00CD:127 Normal [facility] Basic Metabolic Panelon 11-27 Anion gap [Moles/Vol] 10 mmol/L 9 - 17 mmol/L [facility] [employer] Calcium [Mass/Vol] 9.6 mg/dL 8.6 - 10. 4 mg/dL [facility] Chloride [Moles/Vol] 101 mmol/L 98 - 10 7 mmol/L [facility] CO2 [Moles/Vol] 29 mmol/L 20 - 31 mmol/L [facility] Creatinine [Mass/Vol] 0.89 mg/dL 0.50 - 0.90 mg/dL [facility] [employer] GFR/1.73 sq M.predicted MDRD (S/P/Bld) [Vol rate/Area] - PINF [facility] Comment on above: Effective Aug 28, 2022 These results are not intended for use in patients <18 years of age. eGFR results are calculated without a race factor using the 2020 CKD-EPI equation. Careful clinical correlation is recommended, particularly when comparing to results calculated using previous equations. The CKD-EPI equation is less accurate in patients with extremes of muscle mass, extra-renal metabolism of creatine, excessive creatine ingestion, or following therapy that affects renal tubular secretion. Glucose [Mass/Vol] 116 mg/dL High 70 - 99 mg/dL [facility] [employer] Interpretation and review of laboratory results Abnormal [facility] [employer] Potassium [Moles/Vol] 4.2 mmol/L 3.7 - 5.3 mmol/L [facility] Sodium [Moles/Vol] 140 mmol/L 135 - 144 mmol/L [facility] [employer] Urea nitrogen (BldV) [Mass/Vol] 34 mg/dL High 8 - 23 mg/dL [facility] Urea nitrogen/Creatinine (Bld) [Mass ratio] 38 High 9 - 20 [facility] Basic Metabolic Profon 12-17 Anion gap [Moles/Vol] 10 mmol/L Normal 9-17 [facility] Comment on above: Performed By: #### U AX #### [facility] [address] [place], [place] [id number] Application Development Intern: Ronaldo Reed MD BUN/CRE Ratio 38 High 9-20 [facility] Comment on above: Performed By: #### U AX #### [facility] [address], [place] [id number] Application Development Intern: Ronaldo Reed MD Calcium [Mass/Vol] 9.6 mg/dL Normal 8.6-10.4 [facility] Comment on above: Performed By: #### U AX #### [facility] [address], [place] [id number] Application Development Intern: Ronaldo Reed MD Chloride [Moles/Vol] 101 mmol/L Normal 98-107 [facility] Comment on above: Performed By: #### U AX #### [facility] [address], [place] [id number] Application Development Intern: Ronaldo Reed MD CO2 [Moles/Vol] 29 mmol/L Normal 20-31 [facility] Comment on above: Performed By: #### U AX #### [facility] [address], [place] [id number] Application Development Intern: Ronaldo Reed MD Creatinine [Mass/Vol] 0.89 mg/dL Normal 0.50-0.90 [facility] Comment on above: Performed By: #### U AX #### [facility] [address], [place] [id number] Application Development Intern: Ronaldo Reed MD GFR/1.73 sq M.predicted among non-blacks MDRD (S/P/Bld) [Vol rate/Area] mL/min/{1.73_m2} Normal >60 [facility] Comment on above: Result Comment: Effective Aug 28, 2022 These results are not intended for use in patients <18 years of age. eGFR results are calculated without a race factor using the 2020 CKD-EPI equation. Careful clinical correlation is recommended, particularly when comparing to results calculated using previous equations. The CKD-EPI equation is less accurate in patients with extremes of muscle mass, extra-renal metabolism of creatine, excessive creatine ingestion, or following therapy that affects renal tubular secretion. Performed By: #### U AX #### [facility] [address] [place] [address] Application Development Intern: Ronaldo Reed MD Glucose [Mass/Vol] 116 mg/dL High 70-99 [facility] Comment on above: Performed By: #### U AX #### [facility] [address] [place] [address] Application Development Intern: Ronaldo Reed MD Potassium [Moles/Vol] 4.2 mmol/L Normal 3.7-5.3 [facility] Comment on above: Performed By: #### U AX #### [facility] [address] [place] [address] Application Development Intern: Ronaldo Reed MD Sodium [Moles/Vol] 140 mmol/L Normal 135-144 [facility] Comment on above: Performed By: #### U AX #### [facility] [address] [place] [address] Application Development Intern: Ronaldo Reed MD Urea nitrogen [Mass/Vol] 34 mg/dL High 8-23 [facility] Comment on above: Performed By: #### U AX #### [facility] [address], [place] [id number] Application Development Intern: Ronaldo Reed MD CBC with Auto Differentialon 12-17-2022 Absolute Eos # 0.60 High [facility] Absolute Lymph # 3.20 [facility] Absolute Archer # 0.80 [facility] Basophils (Bld) [#/Vol] 0.00 10*3/uL [facility] Basophils/100 WBC (Bld) 0 % 0 - 2 % [facility] Differential Type YES [facility] Eosinophils/100 WBC (Bld) 6 % High 0 - 5 % [facility] Hematocrit (Bld) [Volume fraction] 36.6 % 36 - 46 % [facility] Hemoglobin (Bld) [Mass/Vol] 12.1 g/dL 12.0 - 16.0 g/dL [facility] Interpretation and review of laboratory results Abnormal [facility] Lymphocytes/100 WBC (Bld) 30 % 15 - 40 % [facility] MCH (RBC) [Entitic mass] 31.4 pg 26 - 34 pg [facility] MCHC (RBC) [Mass/Vol] 33.0 g/dL 31 - 37 g/dL B [facility] MCV (RBC) [Entitic vol] 95.1 fL 80 - 100 fL [facility] Monocytes/100 WBC (Bld) 8 % 4 - 8 % [facility] Platelet distribution width (Bld) [Ratio] 13.9 % 12.1 - 15.2 % [facility] Platelets (Bld) [#/Vol] 390 10*3/uL [facility] RBC (Bld) [#/Vol] 3.85 10*6/uL Low 4.0 - 5.2 m/uL [facility] Segmented neutrophils/100 WBC (Bld) 56 % 47 - 75 % [facility] Segs Absolute 6.00 [facility] WBC (Bld) [#/Vol] 10.6 10*3/uL [facility] CBC with Diffon 12-17-2022 Abs. Basophil 0.00 k/uL Normal 0.0-0.2 [facility] Comment on above: Performed By: #### U AX #### [facility] [address] [place] [address] Application Development Intern: Ronaldo Reed MD Abs.Neutrophil (Seg) 6.00 k/uL Normal 2.5-7.0 [facility] Comment on above: Performed By: #### U AX #### [facility] [address] [place] [address] Application Development Intern: Ronaldo Reed MD Auto Diff Performed YES Normal [facility] Comment on above: Performed By: #### U AX #### [facility] [address] [place] [address] Application Development Intern: Ronaldo Reed MD Basophils/100 WBC (Bld) 0 % Normal 0-2 [facility] Comment on above: Performed By: #### U AX #### [facility] [address] [place] [address] Application Development Intern: Ronaldo Reed MD Eosinophils (Bld) [#/Vol] 0.60 10*3/uL High 0.0-0.4 [facility] Comment on above: Performed By: #### U AX #### [facility] [address] [place] [address] Application Development Intern: Ronaldo Reed MD Eosinophils/100 WBC (Bld) 6 % High 0-5 [facility] Comment on above: Performed By: #### U AX #### [facility] [address] [place] [address] Application Development Intern: Ronaldo Reed MD Erythrocyte distribution width (RBC) [Ratio] 13.9 % Normal 12.1-15.2 [facility] Comment on above: Performed By: #### U AX #### [facility] [address] [place] [address] Application Development Intern: Ronaldo Reed MD Hematocrit (Bld) [Volume fraction] 36.6 % Normal 36-46 [facility] Comment on above: Performed By: #### U AX #### [facility] [address] [place] [address] Application Development Intern: Ronaldo Reed MD Hemoglobin (Bld) [Mass/Vol] 12.1 g/dL Normal 12.0-16.0 [facility] Comment on above: Performed By: #### U AX #### [facility] [address] [place] [address] Application Development Intern: Ronaldo Reed MD Lymphocytes (Bld) [#/Vol] 3.20 10*3/uL Normal 1.0-4.8 [facility] Comment on above: Performed By: #### U AX #### [facility] [address] [place] [address] Application Development Intern: Ronaldo Reed MD Lymphocytes/100 WBC (Bld) 30 % Normal 15-40 [facility] Comment on above: Performed By: #### U AX #### [facility] [address] [place] [address] Application Development Intern: Ronaldo Reed MD MCH (RBC) [Entitic mass] 31.4 pg Normal 26-34 [facility] Comment on above: Performed By: #### U AX #### [facility] [address] [place] [address] Application Development Intern: Ronaldo Reed MD MCHC (RBC) [Mass/Vol] 33.0 g/dL Normal 31-37 [facility] Comment on above: Performed By: #### U AX #### [facility] [address] [place] [address] Application Development Intern: Ronaldo Reed MD MCV (RBC) [Entitic vol] 95.1 fL Normal 80-100 [facility] Comment on above: Performed By: #### U AX #### [facility] [address] [place] [address] Application Development Intern: Ronaldo Reed MD Monocytes (Bld) [#/Vol] 0.80 10*3/uL Normal 0.0-1.0 [facility] Comment on above: Performed By: #### U AX #### [facility] [address] [place] [address] ([phone]) Application Development Intern: Ronaldo Reed MD Monocytes/100 WBC (Bld) 8 % Normal 4-8 [facility] Comment on above: Performed By: #### U AX #### [facility] [address] [place], [place] [id number] ([phone] Application Development Intern: Ronaldo Reed MD Neutrophil (Seg) 56 % Normal 47-75 [facility] Comment on above: Performed By: #### U AX #### [facility] [address] [place] [address] ([phone] Application Development Intern: Ronaldo Reed MD Platelets (Bld) [#/Vol] 390 10*3/uL Normal 140-450 [facility] Comment on above: Performed By: #### U AX #### [facility] [address] [place] [address] (609) Application Development Intern: Ronaldo Reed MD RBC (Bld) [#/Vol] 3.85 10*6/uL Low 4.0-5.2 [facility] Comment on above: Performed By: #### U AX #### [facility] [address] [place], [place] [id number] ([phone] Application Development Intern: Ronaldo Reed MD WBC (Bld) [#/Vol] 10.6 10*3/uL Normal 3.5-11.0 [facility] Comment on above: Performed By: #### U AX #### [facility] [address] [place] [address] ([phone]) Application Development Intern: Ronaldo Reed MD Progress Note-Physicianon Progress Note-Physician Assessment/Plan 1. Fracture of ankle (S82.899A: Other fracture of unspecified lower leg, initial encounter for closed fracture) 12/07/2022: R ankle fracture secondary to mechanical fall at home -12/07: Right ankle x-ray (per [facility]) acute closed distal fibular fracture -12/09: Patient slid out of bed re-injuring her ankle -12/12: Per pt.'s son pt. saw Dr. Salazar in the office - per family recs wear boot when wt. bearing -Per ED note patient was placed in orthopedic boot with patient to follow-up with orthopedics as an outpatient, 12/14: repeat R ankle/foot xray: -Right Ankle x-ray: Healing fractures of the distal fibula and medial malleolus -Right foot x-ray: No osseous abnormality -X-ray findings were discussed with Dr. Salazar via phone this a.m., he states to continue walking boot when weightbearing, follow-up in orthopedic office for ongoing management. -PT/OT - SNF -CRM to arrange -Pain mgt 2. Weakness (R53.1: Weakness) Generalized -Decline in physical ability to care for herself since reinjury of her ankle 3. At risk for fall due to comorbid condition (Z91.81: History of falling) See above 4. Aortic stenosis (I35.0: Nonrheumatic aortic (valve) stenosis) Asymptomatic 5. HTN (hypertension), benign (I10: Essential (primary) hypertension) -Furosemide, lisinopril, metoprolol, spironolactone 6. Hyperlipidemia, mixed (E78.2: Mixed hyperlipidemia) -Atorvastatin 7. Type 2 diabetes mellitus with hyperlipidemia (E11.69: Type 2 diabetes mellitus with other specified complication) Accuchecks AC/HS w/ SSI prn -A1c - 6.2% in 09/2022 -Home regimen; Diet controlled -ADA diet -Hypoglycemic protocol 8. Hypothyroid (E03.9: Hypothyroidism, unspecified) -Levothyroxine 9. Rheumatoid arthritis (M06.9: Rheumatoid arthritis, unspecified) -Humira -> non-formulary 10. 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 Acid reflux (K21.9: Gastro-esophageal reflux disease without esophagitis) -PPI 12. Morbid obesity (E66.01: Morbid (severe) obesity due to excess calories) BMI: 41 -Educated on need for lifestyle modifications with goal of weight loss as obesity has a negative impact on co-morbid conditions. 13. On deep vein thrombosis (DVT) prophylaxis (Z79.899: Other intermediate (current) drug therapy) -Lovenox Orders: pantoprazole, 40 mg = 1 tab(s), Tab-DR, Oral, Daily, Routine, Start date 12/14/22 9:00:00 EST, 12/14/22 8:54:00 EST XR Ankle 3+ Views Right XR Foot 3+ Views Right -Plan discussed w/ patient, nursing staff and CRM. This report was transcribed using voice recognition software. Every effort was made to ensure accuracy, however, inadvertently computerized airport operations specialist mistakes may be present. Subjective No acute events overnight. Patient denies CP, pressure, palpitations, N/V, SOB or paresthesia. Review of Systems Constitutional: Generalized weakness - improved today Eye: Negative. Ear/Nose/Mouth/Throa t: Negative. Respiratory: Negative Cardiovascular: Negative. Gastrointestinal: Denies abd pain. Passing flatus. Last bowel movement: 12/14 Genitourinary: Negative. Hematology/Lymphatic s: Negative. Endocrine: Negative. Immunologic: Negative Musculoskeletal: R ankle pain - improved today Integumentary: Negative. Neurologic: Alert and oriented Psychiatric: Negative. Additional ROS info: Except as noted in the above Review of Systems and in the History of Present Illness all other systems have been reviewed and are negative or noncontributory Objective Intake & Output This visit (24 hour periods starting at 07:00 EST) 12/14/22 * 12/13/22 12/12/22 Total Summary Intake mL -- -- 200 Output mL -- -- -- Fluid Balance -- -- 200 Intake (1) Oral Intake mL -- -- 200 Total -- -- 200 Output (0) Counts (1) Stool Count -- 1 -- * This column has not completed the indicated time period. Physical Exam General: Calm, able to communicate needs, Head: Normocephalic/atraum atic Eyes: Pupils equal, round, Conjunctivae and sclerae normal, HEENT: Mucous membrane moist. Tongue normal Neck: Trachea midline, neck supple, Chest: No chest wall deformity, no chest wall tenderness Lungs: CTA nixon, diminished post. bases likely 2/2 body habitus Cardio: Normal rate, apical is regular, mild non pitting edema in R ankle - leg in dependent position Pulses: Normal capillary refill Abdomen: Soft, non-distended, non-tender, normal BS Musculoskeletal: No deformity or scoliosis noted. Integumentary: Warm, dry, ecchymotic areas noted to RL E and ankle, swelling noted to right ankle Extremity: No clubbing, Neurologic: Alert, oriented x4, follows commands, Mental status: Pleasant & cooperative, approp. affect, Lab Results Glucose Cap: 138 mg/dL High (12/14/22 08:06:00) POC Device SN: [id number] (more content not included)... Normal [facility] Comment on above: Result Comment: Elec tronically Signed By: Vero COELHO\.br\Date and Time Signed: 12/14/22 10:01 EST\.br\Electronically Co-Signed By: Vero COELHO\.br\Date and Time Co-Signed: 12/14/22 13:53 EST\.br\Electronically Co-Signed By: Remy CASTELLANOS MD\.br\Date and Time Co-Signed: 12/16/22 07:36 EST CHEMISTRYOrdered By: Violet ROP User on 12-15-2022 Glucose [Mass/Vol] 130 mg/dL High 55 - 99 mg/dL [facility] POC Subsection Comment on above: Result Comment: Blanca LOMAX POC Device SN [id number] Invalid Interpretation Code [facility] POC Subsection POC User ID [id number] Invalid Interpretation Code [facility] POC Subsection POC Username CONSTANCE SHUKLA Invalid Interpretation Code [facility] POC Subsection Glucose [Mass/Vol] 132 mg/dL High 55 - 99 mg/dL [facility] POC Subsection Comment on above: Result Comment: Blanca allen RN/ POC Device SN [id number] Invalid Interpretation Code [facility] POC Subsection POC User ID [id number] Invalid Interpretation Code [facility] POC Subsection POC Username CONSTANCE SHUKLA Invalid Interpretation Code [facility] POC Subsection Glucose [Mass/Vol] 122 mg/dL High 55 - 99 mg/dL [facility] POC Subsection Comment on above: Result Comment: Danitza lizzie Meter POC Device SN [id number] Invalid Interpretation Code [facility] POC Subsection POC User ID [id number] Invalid Interpretation Code [facility] POC Subsection POC Username ROEL NI Invalid Interpretation Code [facility] POC Subsection Capillary Glucose POCon 11-27 Glucose [Mass/Vol] 130 mg/dL High 55-99 [facility] Comment on above: Result Comment: Blanca allen RN/ Performed By: #### 2 [id number] #### [facility] [address] [place] [address] Glucose [Mass/Vol] 132 mg/dL High 55-99 [facility] Comment on above: Result Comment: Blanca LOMAX Performed By: #### 2 [id number] #### [facility] [address] [place] [address] Glucose [Mass/Vol] 122 mg/dL High 55-99 [facility] Comment on above: Result Comment: Danitza lizzie Meter Performed By: #### 2 [id number] #### [facility] [address] [place] [address] Discharge Note-Nursingon Discharge Note-Nursing ALEENA GILL :1935 Visit Date:12/12/2022 Inpatient Discharge Instructions Your Care Team Admitting Physician - David WHITEHEAD MD Reason for Your Visit Pain on the right lower leg Your Diagnosis Fracture of ankle Weakness At risk for fall due to comorbid condition Aortic stenosis HTN (hypertension), benign Hyperlipidemia, mixed Type 2 diabetes mellitus with hyperlipidemia Hypothyroid Rheumatoid arthritis Spinal stenosis, lumbar Acid reflux Morbid obesity On deep vein thrombosis (DVT) prophylaxis Multiple falls Weakness or fatigue Tests Performed Automated Diff BMP Capillary Glucose POC CBC w/ Auto Diff COVID Rapid Antigen ([facility]) Electrolyte Panel -- Results Pending -- Flu A/B Troponin 0 Hr. UA With Cult Reflex XR Ankle 3+ Views Right XR Chest Single View XR Foot 3+ Views Right Please visit your patient portal for your results or contact your primary care physician. This Is Your Medications List Misc Prescription (Compression stockings, 20-30 mmHg) acetaminophen (acetaminophen 325 mg Tab) acetaminophen-oxycod one (acetaminophen-oxyco done 325 mg-5 mg Tab) adalimumab (Humira 40 mg/0.8 mL subcutaneous kit) aspirin (aspirin 81 mg Oral EC Tab) atorvastatin (atorvastatin 20 mg Tab) cholecalciferol (Vitamin D3 5000 intl units oral capsule) duloxetine furosemide (furosemide 20 mg Tab) gabapentin (gabapentin 100 mg Cap) levothyroxine (levothyroxine 50 mcg (0.05 mg) Tab) lisinopril (lisinopril 20 mg Tab) metoprolol (metoprolol 100 mg ER Tab) multivitamin with minerals pantoprazole (Pantoprazole [address] Tab) potassium chloride (potassium chloride 10 mEq Cap-ER) senna (Senokot 8.6 mg Tab) spironolactone (Aldactone 25 mg Tab) vitamin E [Image Removed: STOP]Stop taking these medications cranberry (Cranberry oral tablet) ibuprofen (ibuprofen 200 mg Tab) Procedure History Injection of hip using fluoroscopic guidance (11/23/2021), Injection of hip using fluoroscopic guidance (08/08/2021), Injection of facet joint using fluoroscopic guidance (11/06/2016), right cataract extraction with intraocular lens placement (03/08/2015), left cataract extraction with intraocular lens placement (01/18/2015), neck surgery (11/26/2005), Tubal ligation. Discharge Vitals Temperature (Axillary) 36.7 ?C Heart Rate (Monitored) 66 Respiratory Rate 16 Blood Pressure 112/69 What to do next Instructions From Your Doctor Event Name Event Result Discharge Activity Activity as tolerated Discharge Restrictions No driving Discharge Diet(s) Calorie Controlled- 2000 Calorie Diet, Fat Modified- Low cholesterol, Low Sodium- 2000 mg Pending Diagnostic Test Results None Pharmacy Information [facility] , Julissa Pinon Discharge Instructions Pt. is WBAT, must have R leg walking boot with all wt. bearing activity. Follow up with orthopedic as written. Previously Scheduled Follow-Up Appointments Sunday 3:00 PM EST With: ISAIAS BECERRA, Efrain Chambers Where: [facility] Primary Care Normal [facility] Inpatient Clinical Summaryon 12-15-2022 Inpatient Clinical Summary [place] [id number] Clinical Summary Person Information: Name: ALEENA GILL Age: 87 Years : 1935 Sex: Female PCP: Efrain ESPARZA MD Marital Status: Race: White Ethnicity: Non- or Language: Niuean Visit Id: Visit Reason: Multiple falls; Weakness or fatigue; GENERALIZED WEAKNESS, HYPERTENSION Speciality: Acuity: Enc Type: Observation Med Service: Medical Arrival: 12/12/2022 19:01:07 Discharge: Dispo Type: Admitted as IP to this Hosp [facility] [address] [facility] [address] [place] [id number] Provider Notes: Diagnosis: 1:Fracture of ankle; 2:Weakness; 3:At risk for fall due to comorbid condition; 4:Aortic stenosis; 5:HTN (hypertension), benign; 6:Hyperlipidemia, mixed; 7:Type 2 diabetes mellitus with hyperlipidemia; 8:Hypothyroid; 9:Rheumatoid arthritis; 10:Spinal stenosis, lumbar; 11:Acid reflux; 12:Morbid obesity; 13:On deep vein thrombosis (DVT) prophylaxis Problems Active Cerumen impaction Other intermediate (current) drug therapy 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 Type 2 diabetes mellitus with morbid obesity Type 2 diabetes mellitus with hyperlipidemia Hand numbness UTI (urinary tract infection) Hallucinations Leg pain, left Unsteadiness on feet Spinal stenosis, lumbar Rheumatoid arthritis Hyperlipidemia, mixed Voice hoarsenesses Hypothyroid Aortic stenosis HTN (hypertension), benign Acid reflux Cervical disc disorder Edema Smoking Status: Never Smoker Functional Status: Sensory Deficits: History of Falls: Mobility Assistance Prior to Admission: ADLs: Minimal assistance Current Level of Assistance for Self-Care/Mobility: Cognitive Status: Oriented x 3 Allergies No Known Allergies Measurements: Height: 167.64 cm Weight: 117.0 kg Blood Pressure: 112 mmHg / 69 mmHg BMI: 41.77 kg/m2 Procedures No Procedures Documented Immunizations No Immunizations Documented This Visit Final Med List: acetaminophen (acetaminophen 325 mg Tab) 2 Tablets By Mouth every 6 hours as needed Pain. not to exceed 4000 mg/day. acetaminophen-oxycod one (acetaminophen-oxyco done 325 mg-5 mg Tab) 1 Tablets By Mouth every 6 hours as needed Pain 8-10 for 3 Days. not to exceed 4000 mg acetaminophen per day. Refills: 0. adalimumab (Humira 40 mg/0.8 mL subcutaneous kit) 0.8 Milliliter Subcutaneous. Further dosing per PCP or hook loader. aspirin (aspirin 81 mg Oral EC Tab) 1 Tablets By Mouth every day. atorvastatin (atorvastatin 20 mg Tab) 1 Tablets By Mouth once a day (at bedtime). Refills: 3. cholecalciferol (Vitamin D3 5000 intl units oral capsule) 1 Capsules By Mouth every day. per integrated program teacher. duloxetine 30 Milligram By Mouth every day. furosemide (furosemide 20 mg Tab) 1 Tablets By Mouth every day. gabapentin (gabapentin 100 mg Cap) 1 Capsules By Mouth 2 times a day. levothyroxine (levothyroxine 50 mcg (0.05 mg) Tab) 1 Tablets By Mouth every day. lisinopril (lisinopril 20 mg Tab) 1 Tablets By Mouth 2 times a day. metoprolol (metoprolol 100 mg ER Tab) 2 Tablets By Mouth every day. Misc Prescription (Compression stockings, 20-30 mmHg) wear daily both legs Thigh high. Refills: 1. multivitamin with minerals 1 tab By Mouth every day. pantoprazole (Pantoprazole [address] Tab) 1 Tablets By Mouth every day. potassium chloride (potassium chloride 10 mEq Cap-ER) 1 Capsules By Mouth every day. per Dr. Coyle. senna (Senokot 8.6 mg Tab) 2 Tablets By Mouth 2 times a day as needed Other (see comment). spironolactone (Aldactone 25 mg Tab) 1 Tablets By Mouth every day. vitamin E 400 International unit By Mouth every day. Care Team Members: Attending Physician: David WHITEHEAD MD Consulting Physician: Referring Physician: Follow up: With: Address: When: Efrain ESPARZA [facility] [place] [address] Business (1) Comments: Call for followup appointment when d/c from [facility] With: Address: When: Richie Salazar [address] [place] [address] Business (1) Within 5 to 7 days Type Location Start Finish State Open [facility] 01/15/2023 3:00 PM 01/15/2023 3:20 PM Confirmed Patient Education Information: Ankle Fracture, [id number] pantoprazole, Percocet 5 mg-325 mg oral tablet Normal [facility] Inpatient Patient Summaryon 12-15-2022 Inpatient Patient Summary [facility] [address], [place] [address] Patient Discharge Instructions PERSON INFORMATION Name: ALEENA GILL Date of : 1935 Current Date: 12/15/2022 15:11:04 PHYSICIANS Admitting Physician: David WHITEHEAD MD Primary Care Physician: Efrain ESPARZA MD PCP Comment: Discharge Diagnosis: 1:Fracture of ankle; 2:Weakness; 3:At risk for fall due to comorbid condition; 4:Aortic stenosis; 5:HTN (hypertension), benign; 6:Hyperlipidemia, mixed; 7:Type 2 diabetes mellitus with hyperlipidemia; 8:Hypothyroid; 9:Rheumatoid arthritis; 10:Spinal stenosis, lumbar; 11:Acid reflux; 12:Morbid obesity; 13:On deep vein thrombosis (DVT) prophylaxis Condition at Discharge: Stable ALEENA GILL has been given the following list of follow-up instructions, prescriptions, and patient education materials: PATIENT FOLLOW-UP INFORMATION Diet: Calorie Controlled- 2000 Calorie Diet, Fat Modified- Low cholesterol, Low Sodium- 2000 mg Discharge Activity: Activity as tolerated Discharge Restrictions: No driving Wound Care Instructions: Remove Your Dressing In Days Call Your Doctor For: IF UNABLE TO CONTACT YOUR PHYSICIAN AND YOU FEEL IT IS AN EMERGENCY, GO TO THE NEAREST EMERGENCY ROOM OR CALL 911 Home Treatment: Devices/Equipment: Commode, Rollator Walker, Walker - front wheeled, Other: transfer chair Special Services: Additional Instructions: Pt. is WBAT, must have R leg walking boot with all wt. bearing activity Follow up with orthopedic as written. Primary Care Physician to provide the following pending test results: None Follow up: With: Address: When: Efrain ESPARZA [facility] [place] [address] Business (1) Comments: Call for followup appointment when d/c from SNF With: Address: When: Richie Salazar [address] [place] [address] Business (1) Within 5 to 7 days In the event that this physician does not participate in your insurance network, please consult with your insurance company to find a nearby participating provider. Type Location Start Finish State Open [facility] Nathan 01/15/2023 3:00 PM 01/15/2023 3:20 PM Confirmed Comment: BRIDGET Ring DOLORES M, have received the attached patient education materials/instructio ns and have verbalized understanding: Patient Signature Date Clinican/Nurse Signature Date HERE ARE THE MEDICATION CHANGES THAT OCCURRED DURING YOUR HOSPITAL STAY New Medications Printed Prescriptions acetaminophen-oxycod one (acetaminophen-oxyco done 325 mg-5 mg Tab) 1 Tablets By Mouth every 6 hours as needed Pain 8-10 for 3 Days. not to exceed 4000 mg acetaminophen per day. Refills: 0. Last Dose: Next Dose: Other Medications acetaminophen (acetaminophen 325 mg Tab) 2 Tablets By Mouth every 6 hours as needed Pain. not to exceed 4000 mg/day. Last Dose: Next Dose: pantoprazole (Pantoprazole [address] Tab) 1 Tablets By Mouth every day. Last Dose: Next Dose: senna (Senokot 8.6 mg Tab) 2 Tablets By Mouth 2 times a day as needed Other (see comment). Last Dose: Next Dose: Medications to Continue Taking That Have Changed Other Medications START: adalimumab (Humira 40 mg/0.8 mL subcutaneous kit) 0.8 Milliliter Subcutaneous. Further dosing per PCP or hook loader., twice a month Last Dose: Next Dose: STOP: adalimumab (Humira 40 mg/0.8 mL subcutaneous kit) 0.8 Milliliter Subcutaneous Once. START: aspirin (aspirin 81 mg Oral EC Tab) 1 Tablets By Mouth every day. Last Dose: Next Dose: STOP: aspirin 81 Milligram By Mouth every day. STOP: aspirin (aspirin 81 mg oral tablet) 1 Tablets By Mouth every day. START: atorvastatin (atorvastatin 20 mg Tab) 1 Tablets By Mouth once a day (at bedtime). Refills: 3. Last Dose: Next Dose: STOP: atorvastatin (atorvastatin 20 mg Tab) 1 Tablets By Mouth every day. START: cholecalciferol (Vitamin D3 5000 intl units oral capsule) 1 Capsules By Mouth every day. per integrated program teacher. Last Dose: Next Dose: STOP: cholecalciferol (Vitamin D3) 125 Microgram By Mouth every day. 2 tabs. START: duloxetine 30 Milligram By Mouth every day. Last Dose: Next Dose: STOP: duloxetine (Cymbalta 60 mg oral delayed release capsule) 1 Capsules By Mouth every day. STOP: duloxetine (Cymbalta) 30 Milligram By Mouth every day. per Dr. Parekh decreased while in hospital. START: furosemide (furosemide 20 mg Tab) 1 Tablets By M (more content not included)... Normal [facility] Progress Note-Physicianon Progress Note-Physician Assessment/Plan 1. Fracture of ankle (S82.179A: Other fracture of unspecified lower leg, initial encounter for closed fracture) 12/07/2022: R ankle fracture secondary to mechanical fall at home -12/07: Right ankle x-ray (at [facility]) acute closed distal fibular fracture -12/09: Patient slid out of bed re-injuring her ankle -12/12: Per pt.'s son pt. saw Dr. Salazar in the office - per family rortho ecs wear boot when wt. bearing -Per ED note patient was placed in orthopedic boot with patient to follow-up with orthopedics as an outpatient, 12/14: repeat R ankle/foot xray: -Right Ankle x-ray: Healing fractures of the distal fibula and medial malleolus -Right foot x-ray: No osseous abnormality -X-ray findings were discussed with Dr. Salazar via phone 12/14., he states no change to POC, continue walking boot when weightbearing, follow-up in orthopedic office for ongoing management. -PT/OT - SNF -CRM to arrange -Pain mgt 2. Weakness (R53.1: Weakness) Generalized -Decline in physical ability to care for herself since reinjury of her ankle -Awaiting SNF 3. At risk for fall due to comorbid condition (Z91.81: History of falling) See above 4. Aortic stenosis (I35.0: Nonrheumatic aortic (valve) stenosis) Asymptomatic 5. HTN (hypertension), benign (I10: Essential (primary) hypertension) -Furosemide, lisinopril, metoprolol, spironolactone 6. Hyperlipidemia, mixed (E78.2: Mixed hyperlipidemia) -Atorvastatin 7. Type 2 diabetes mellitus with hyperlipidemia (E11.69: Type 2 diabetes mellitus with other specified complication) Accuchecks AC/HS w/ SSI prn -A1c - 6.2% in 09/2022 -Home regimen; Diet controlled -ADA diet -Hypoglycemic protocol 8. Hypothyroid (E03.9: Hypothyroidism, unspecified) -Levothyroxine 9. Rheumatoid arthritis (M06.9: Rheumatoid arthritis, unspecified) -Humira -> non-formulary 10. 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 Acid reflux (K21.9: Gastro-esophageal reflux disease without esophagitis) -PPI 12. Morbid obesity (E66.01: Morbid (severe) obesity due to excess calories) BMI: 41 -Educated on need for lifestyle modifications with goal of weight loss as obesity has a negative impact on co-morbid conditions. 13. On deep vein thrombosis (DVT) prophylaxis (Z79.899: Other long term care pharmacist (current) drug therapy) -Lovenox Orders: XR Ankle 3+ Views Right XR Foot 3+ Views Right -Plan discussed w/ patient, nursing staff and CRM. -Disposition: Patient is awaiting pre-CERT This report was transcribed using voice recognition software. Every effort was made to ensure accuracy, however, inadvertently computerized airport operations specialist mistakes may be present. Subjective No acute events overnight. Patient denies CP, pressure, palpitations, N/V, SOB or paresthesia. Review of Systems Constitutional: Generalized weakness - improved today Eye: Negative. Ear/Nose/Mouth/Throa t: Negative. Respiratory: Negative Cardiovascular: Negative. Gastrointestinal: Denies abd pain. Passing flatus. Last bowel movement: 12/14 per pt. report Genitourinary: Negative. Hematology/Lymphatic s: Negative. Endocrine: Negative. Immunologic: Negative Musculoskeletal: R ankle pain & swelling today - pt. had been in dependent position -patient again educated on the importance of elevation Integumentary: Negative. Neurologic: Alert and oriented Psychiatric: Negative. Additional ROS info: Except as noted in the above Review of Systems and in the History of Present Illness all other systems have been reviewed and are negative or noncontributory Objective Intake & Output This visit (24 hour periods starting at 07:00 EST) 12/15/22 * 12/14/22 12/13/22 Total Summary Intake mL -- 2 -- Output mL -- 200 300 Fluid Balance -- -198 -300 Intake (1) ondansetron mL -- 2 -- Total -- 2 -- Output (1) Urine Voided mL -- 200 300 Total -- 200 300 Counts (1) Stool Count -- -- 1 * This column has not completed the indicated time period. Physical Exam General: Calm, able to communicate needs, Head: Normocephalic/atraum atic Eyes: Pupils equal, round, Conjunctivae and sclerae normal, HEENT: Mucous membrane moist. Tongue normal Neck: Trachea midline, neck supple, Chest: No chest wall deformity, no chest wall tenderness Lungs: CTA nixon, diminished post. bases likely 2/2 body habitus Cardio: Normal rate, apical is regular, mild non pitting edema in R ankle - leg in dependent position Pulses: Normal capillary refill Abdomen: Soft, non-distended, non-tender, normal BS Musculoskeletal: No deformity or scoliosis noted. Integumentary: Warm, dry, ecchymotic areas noted to RL E and ankle, swelling noted to right ankle - improving today Extremity: No clubbing, Neurologic: Alert, oriented x4, follows Mental st (more content not included)... Normal [facility] Comment on above: Result Comment: Elec tronically Signed By: Vero COELHO\.br\Date and Time Signed: 12/15/22 10:29 EST\.br\Electronically Co-Signed By: CRISTA BECERRA, Candy\.br\Date and Time Co-Signed: 12/15/22 11:40 EST Capillary Glucose POCon 11-26 Glucose [Mass/Vol] 159 mg/dL High 55- [facility] Comment on above: Performed By: #### 2 [id number] #### [facility] [address] [place] [address] Glucose [Mass/Vol] 128 mg/dL High 55- [facility] Comment on above: Result Comment: Blanca LOMAX Performed By: #### 2 [id number] #### [facility] [address] [place] [address] Glucose [Mass/Vol] 109 mg/dL High 55-99 [facility] Comment on above: Result Comment: Blanca LOMAX Performed By: #### 2 [id number] ####[facility] [id number] [place] [address] Glucose [Mass/Vol] 138 mg/dL High 55-99 [facility] Comment on above: Result Comment: Blanca allen RN/ Performed By: #### 2 [id number] ####[facility] [address] [place] [address] Interdisciplinary Note - Eddy e Manageron 12-14-2022 Interdisciplinary Note - S[employer] Spinner CRM spoke with patient, daughter Stanton and a male visitor in room. Patient is alert and oriented and participates in discharge planning. No family in room. Patient white board updated, and CRM contact information provided. Discussed CRM spoke with Vero RAVI who just saw patient and will do x ray of foot today but can discharge when placement arranged and precert obtained. Discussed still waiting an answer from [facility] but [facility] does have a bed and may be a semi private room. If no answer by 12 noon will go with [facility] bed and family and patient are agreeable to this plan. CRM update patient that [facility] does not take her insurance and are waiting for [facility], they are reviewing her information. CRM called Dtr Stanton and had to leave a message about dc plans, and that [facility] was accepted pending precert. CRM called room and spoke and spoke with patients dthoang Gage and update her that [facility] has accepted pending precert approval. Normal [facility] Comment on above: Result Comment: Elec tronically Signed By: Elan REDDY, Asha\.br\Date and Time Signed: 12/14/22 15:26 EST Progress Note-Physicianon Progress Note-Physician Assessment/Plan PLAN: 1. Fracture of ankle (S82.899A: Other fracture of unspecified lower leg, initial encounter for closed fracture) Prior ankle fracture on 12/07/2022 after a mechanical fall at home patient slid out of bed again on 12/09/2022 and squad with 3 semiconductor equipment technician had to assist patient to get off the floor. Patient has progressively weakened since ankle fracture. Per right ankle x-ray at [facility] showed acute closed distal fibular fracture. Was nonsurgical per ED note and was placed in orthopedic boot with patient to follow outpatient orthopedics. Patient to use orthopedic boot when up with walker. Patient lives alone Percocet PT OT evaluation Social service consult ? pt referred to SNF by PCP ??? 2. Weakness (R53.1: Weakness) As above 3. At risk for fall due to comorbid condition (Z91.81: History of falling) As above 4. HTN (hypertension), benign (I10: Essential (primary) hypertension) Metoprolol, lisinopril Hold spironolactone and Lasix for now 6. Type 2 diabetes mellitus with hyperlipidemia (E11.69: Type 2 diabetes mellitus with other specified complication) Accu-Chek ACH S Insulin sliding scale 7. Hyperlipidemia, mixed (E78.2: Mixed hyperlipidemia) Statin 8. Hypothyroid (E03.9: Hypothyroidism, unspecified) Synthroid 9. Rheumatoid arthritis (M06.9: Rheumatoid arthritis, unspecified) Stable 10. Spinal stenosis, lumbar (M48.061: Spinal stenosis, lumbar region without neurogenic claudication) With neuropathy Gabapentin, Cymbalta PT OT evaluation 11. Aortic stenosis (I35.0: Nonrheumatic aortic (valve) stenosis) Stable 12. Acid reflux (K21.9: Gastro-esophageal reflux disease without esophagitis) PPI 11. Morbid obesity (E66.01: Morbid (severe) obesity due to excess calories) BMI 41.77 Counseled on diet, exercise, weight loss and lifestyle modifications. Subjective Pt seen at bedside this morning. She is restless. States she wants to get out of bed. She is pending PT/OT eval. C/O burning to RLE. radiates from ankle to knee. Hungry this morning. States she slept well last night. States she has been so weak at home. Has been unable to get up and around and has only been sitting in her recliner since she fx her ankle earlier this month. Denies CP, SOB, N/V/D Objective Vitals & Measurements T: 36.6 ?C(Axillary) TMIN: 36.3 ?C(Oral) TMAX: 36.8 ?C(Oral) HR: 67(Monitored) RR: 16 BP: 168/74 SpO2: 96% HT: 167.64 cm WT: 117.0 kg Intake & Output This visit (24 hour periods starting at 07:00 EST) 12/13/22 * 12/12/22 12/11/22 Total Summary Intake mL -- 200 -- Output mL -- -- -- Fluid Balance -- 200 -- Intake (1) Oral Intake mL -- 200 -- Total -- 200 -- Output (0) Counts (1) Stool Count 1 -- -- * This column has not completed the indicated time period. Physical Exam General: alert, restless. Skin: warm, dry; ecchymosis noted to lower part right leg and ankle. Head: no trauma, normocephalic Neck: Trachea midline, no adenopathy, no tenderness Eye: normal conjunctiva, sclera clear ENMT: TM's clear, oral mucosa moist, no pharyngeal erythema or exudate Cardiovascular: regular rate and rhythm, normal peripheral perfusion Respiratory: Lungs CTA, respirations non labored Chest wall: no deformity. Gastrointestinal: soft, non distended, no tenderness, no guarding. Back: No tenderness, Normal ROM, Normal alignment. Extremities: RLE with ecchymosis around right ankle, foot and lower part of leg. swelling noted around right ankle. Neurological: oriented x 2, LOC appropriate for age, CN II-XII intact, motor strength equal & normal bilaterally, sensation equal & normal bilaterally, speech normal Psychiatric: cooperative, anxious at times. Lab Results WBC: 10.2 E9/L (12/12/22 19:36:00) RBC: 3.9 E12/L Low (12/12/22 19:36:00) HGB: 12.4 gm/dL (12/12/22 19:36:00) Hct: 36.8 % (12/12/22 19:36:00) MCV: 94.2 fL (12/12/22 19:36:00) MCH: 31.8 pg (12/12/22 19:36:00) MCHC: 33.8 gm/dL (12/12/22 19:36:00) RDW: 13.8 % (12/12/22 19:36:00) Platelet: 340 E9/L (12/12/22 19:36:00) MPV: 7.3 fL (12/12/22 19:36:00) Neutro Auto: 63.7 % (12/12/22 19:36:00) Lymph Auto: 24.6 % (12/12/22 19:36:00) Archer Auto: 7.6 % (12/12/22 19:36:00) Eos Auto: 3.7 % (12/12/22 19:36:00) Basophil Auto: 0.4 % (12/12/22 19:36:00) Neutro Absolute: 6.5 E9/L (12/12/22 19:36:00) Lymph Absolute: 2.5 E9/L (12/12/22 19:36:00) Archer Absolute: 0.8 E9/L (12/12/22 19:36:00) Eos Absolute: 0.4 E9/L (12/12/22 19:36:00) Basophil Absolute: 0 E9/L (12/12/22 19:36:00) Glucose Lvl: 114 mg/dL (12/12/22 19:36:00) BUN: 34 mg/dL High (12/12/22 19:36:00) Creatinine: 0.9 mg/dL (12/12/22 19:36:00) BUN/Creat Ratio: 38 High (12/12/22 19:36:00) Sodium Lvl: 141 mmol/L (12/12/22 19:36:00) Potassium Lvl: 4.1 mmol/L (12/12/22 19:36:00) Chloride: 106 mmol/L (12/12/22 19:36:00) CO2: 28 mmol/L (12/12/22 19:36:00) AGAP: 11 mEq/L (12/12/22 19:36:00) Calcium Lvl: 9.2 mg/dL (01 (more content not included)... Normal [facility] Comment on above: Result Comment: Elec tronically Signed By: Heidi PADILLA\.br\Date and Time Signed: 12/13/22 13:07 EST\.br\Electronically Co-Signed By: Remy CASTELLANOS MD\.br\Date and Time Co-Signed: 12/14/22 08:10 EST XR Ankle 3+ Views Righton XR Ankle 3+ Views Right Exam Date/Time: 12/14/2022 10:10 EST Reason for Exam: Ankle fracture Report IMPRESSION: HEALING FRACTURES OF THE DISTAL FIBULA AND MEDIAL MALLEOLUS. EXAM: XR Ankle 3+ Views Right COMPARISON: None available HISTORY: Right ankle pain. History of previously diagnosed distal fibular fracture. FINDINGS: AP, lateral and oblique views of the ankle were obtained. FINDINGS: Obliquely oriented mildly displaced fracture of the distal fibular diaphysis with some callus formation. Mildly displaced fracture of the distal tip of the medial malleolus also with some callus formation. No additional fractures identified. Chronic changes of the tip of the lateral malleolus. Ankle mortise is within normal limits. Talar dome is intact. Large plantar and small posterior calcaneal enthesophytes. Calcifications within the Achilles tendon and plantar fascia. Diffuse subcutaneous soft tissue edema. FINAL REPORT Dictated: 12/14/2022 10:32 am Austin Epperson DO Signed (Electronic Signature): 12/14/2022 10:32 am Signed by: Austin Epperson DO Transcribed by: ADAN Technologist: NELLY Normal [facility] XR Foot 3+ Views Righton XR Foot 3+ Views Right Exam Date/Time: 12/14/2022 10:10 EST Reason for Exam: Fracture Report IMPRESSION: NO ACUTE OSSEOUS ABNORMALITY OF THE FOOT. EXAM: XR Foot 3+ Views Right COMPARISON: None available HISTORY: Ankle pain TECHNIQUE: AP, lateral and oblique views of the foot obtained. FINDINGS: No acute fracture or dislocation of the foot. Mild degenerative changes of the first metatarsophalangeal joint. Large plantar calcaneal enthesophyte and small posterior calcaneal enthesophyte. Calcifications of the distal Achilles tendon and proximal plantar fascial. Diffuse subcutaneous soft tissue edema. FINAL REPORT Dictated: 12/14/2022 10:37 am Austin Epperson DO Signed (Electronic Signature): 12/14/2022 10:37 am Signed by: Austin Epperson DO Transcribed by: ADAN Technologist: NELLY Normal [facility] Capillary Glucose POCon 11-26 Glucose [Mass/Vol] 172 mg/dL High 55-99 [facility] Comment on above: Result Comment: Blanca allen RN/ Performed By: #### 2 [id number] ####[facility] [address] [place] [address] Glucose [Mass/Vol] 98 mg/dL Normal 55-99 [facility] Comment on above: Performed By: #### 2 [id number] #### [facility] [address] [place] [address] Glucose [Mass/Vol] 119 mg/dL High 55-99 [facility] Comment on above: Result Comment: Blanca allen RN/MD Performed By: #### 2 [id number] #### [facility] [address] [place] [address] ED Clinical Summaryon 2022 ED Clinical Summary [address] [address] ED Clinical Summary Person Information Name: ALEENA GILL [place] Age: 87 Years : 1935 Sex: Female Language: Niuean PCP: Efrain ESPARZA MD Marital Status: Visit Id: Visit Reason: Multiple falls; Weakness or fatigue; GENERALIZED WEAKNESS, HYPERTENSION Speciality: Acuity: 3 Enc Type: Observation Med Service: Medical Arrival: 12/12/2022 19:01:07 Discharge: LOS: 000 04:32 Checkin: 12/12/2022 19:01:07 Checkout: 12/12/2022 23:33:52 Dispo Type: Admitted as IP to this [facility] EVENTS: Event Name Event Status Request Date/Time Start Date/Time Complete Date/Time Arrive Complete 12/12/2022 19:01:07 12/12/2022 19:01:07 12/12/2022 19:01:07 Document Home Meds Request 12/12/2022 19:01:07 Triage Complete 12/12/2022 19:01:07 12/12/2022 19:20:55 12/12/2022 19:20:55 Bed Assign Complete 12/12/2022 19:03:33 12/12/2022 19:03:33 12/12/2022 19:03:33 Dr Exam Complete 12/12/2022 19:03:33 12/12/2022 19:05:17 12/12/2022 19:05:17 RN Exam Complete 12/12/2022 19:03:33 12/12/2022 19:16:05 12/12/2022 19:16:05 Registration Complete 12/12/2022 19:05:17 12/12/2022 19:33:43 12/12/2022 19:33:43 Fall Risk Request 12/12/2022 19:16:05 EKG Complete 12/12/2022 19:20:32 12/12/2022 19:25:44 Pending Labs Complete 12/12/2022 19:28:32 12/12/2022 20:55:15 Lab Complete 12/12/2022 19:28:32 12/12/2022 20:55:15 Urine Collect Complete 12/12/2022 19:28:32 12/12/2022 20:55:15 Patient Care Complete 12/12/2022 19:28:32 12/12/2022 19:34:14 X-Ray Complete 12/12/2022 19:28:32 12/12/2022 19:46:32 12/12/2022 20:08:01 Pending Labs Complete 12/12/2022 19:28:45 12/12/2022 20:03:41 Lab Complete 12/12/2022 19:28:45 12/12/2022 20:03:41 Swab Complete 12/12/2022 19:28:45 12/12/2022 20:03:41 Reg Complete Request 12/12/2022 19:33:43 Reg Bed Request Complete 12/12/2022 19:33:43 12/12/2022 19:33:43 12/12/2022 19:33:43 Pending Labs Complete 12/12/2022 19:42:20 12/12/2022 19:42:20 12/12/2022 19:42:27 Lab Complete 12/12/2022 19:42:20 12/12/2022 19:42:20 12/12/2022 19:42:27 Wet Read Request 12/12/2022 20:08:01 Consult Request 12/12/2022 21:40:34 Hospitalist Consult Request 12/12/2022 21:40:34 Meds Admin Complete 12/12/2022 21:41:17 12/12/2022 21:48:26 Patient Care Request 12/12/2022 21:43:19 Patient Care Request 12/12/2022 21:43:19 Patient Care Request 12/12/2022 21:43:19 Patient Care Request 12/12/2022 21:43:19 Patient Care Request 12/12/2022 22:13:39 Meds Admin Request 12/12/2022 22:13:39 RT Request 12/12/2022 22:13:39 RT Tx/ABG Request 12/12/2022 22:13:39 Bed Request Request 12/12/2022 22:13:39 Reg Bed Request Complete 12/12/2022 22:13:39 12/12/2022 23:23:52 12/12/2022 23:23:52 Admit Request 12/12/2022 22:13:39 Meds Admin Request 12/12/2022 22:14:54 Consult Request 12/12/2022 22:15:27 Meds Admin Request 12/12/2022 22:16:29 Patient Care Request 12/12/2022 22:16:29 ADDRESS: [facility] [place] [address] [id number] [facility] DOC NOTES: MEDICAL INFORMATION: Prescriptions Given: Medications to Continue with No Changes Other Medications adalimumab (Humira 40 mg/0.8 mL subcutaneous kit) 0.8 Milliliter Subcutaneous Once. aspirin (aspirin 81 mg oral tablet) 1 Tablets By Mouth every day. atorvastatin (atorvastatin 20 mg Tab) 1 Tablets By Mouth once a day (at bedtime). Refills: 3. cholecalciferol (Vitamin D3 5000 intl units oral capsule) 1 Capsules By Mouth every day. per integrated program teacher. cranberry (Cranberry oral tablet) 1 tab By Mouth every day. duloxetine (Cymbalta) 30 Milligram By Mouth every day. per Dr. Parekh decreased while in hospital. furosemide (furosemide 20 mg Tab) 1 Tablets By Mouth every day. Refills: 3. ibuprofen (ibuprofen 200 mg Tab) 2 Tablets By Mouth every day as needed as needed for pain. levothyroxine (Synthroid 50 mcg (0.05 mg) Tab) 1 Tablets By Mouth every day. Refills: 3. lisinopril (lisinopril 20 mg Tab) 1 Tablets By Mouth 2 times a day. Refills: 3. metoprolol (Toprol XL 200 mg Tab-ER) 1 Tablets By Mouth every day. Refills: 3. Misc Prescription (Compression stockings, 20-30 mmHg) wear daily both legs Thigh high. Refills: 1. multivitamin with minerals (PreserVision) 2 per day. potassium chloride (potassium chloride 10 mEq Cap-ER) 1 Capsules By Mouth every day. per Dr. Coyle. spironolactone (spironolactone 25 mg Tab) 1 Tablets By Mouth every day. Refills: 3. vitamin E 400 International unit By Mouth every day. PATIENT EDUCATION INFORMATION: Instructions: Follow up: DIAGNOSIS: 1:Fracture of ankle; 2:Weakness; 3:At risk for fall due to comorbid condition; 4:Obesity; 5:HTN (hypertension), benign; 6:Type 2 diabetes mellitus with hyperlipidemia; 7:Hyperlipidemia, mixed; 8:Hypothyroid; 9:Rheumatoid arthritis; 10:Spinal stenosis, lumbar; 11:Aortic stenosis; 12:Acid reflux; Hyperlipidemia, unspecified Normal [facility] ED Patient Education Noteon 12-13-2022 ED Patient Education Note Normal [facility] ED Patient Summaryon 023 ED Patient Summary [place] [id number] Patient Discharge Instructions Person Information Name: ALEENA GILL Age: 87 Years Arrival Date: 12/12/2022 19:01:07 Discharge Diagnosis: 1:Fracture of ankle; 2:Weakness; 3:At risk for fall due to comorbid condition; 4:Obesity; 5:HTN (hypertension), benign; 6:Type 2 diabetes mellitus with hyperlipidemia; 7:Hyperlipidemia, mixed; 8:Hypothyroid; 9:Rheumatoid arthritis; 10:Spinal stenosis, lumbar; 11:Aortic stenosis; 12:Acid reflux; Hyperlipidemia, unspecified Primary Care Physician: Efrain ESPARZA MD Provider Information Primary Provider: Julio Pham DO Advanced Manager Category:None The exam and treatment you received in the Emergency Department were for an urgent problem and are not intended as complete care. It is important that you follow up with a doctor, nurse practitioner, or physician?s certified physical therapist assistant for ongoing care. If your symptoms become worse or you do not improve as expected and you are unable to reach your usual health care provider, you should return to the Emergency Department. We are available 24 hours a day. ALEENA GILL has been given the following list of patient education materials, prescriptions and follow-up instructions: Follow-up Instructions: In the event that this physician does not participate in your insurance network, please consult with your insurance company to find a nearby participating provider. Patient Education Materials: A MESSAGE TO ALL PATIENTS REGARDING OPIOIDS PRESCRIPTION OPIOIDS: WHAT YOU NEED TO KNOW Prescription opioids can be used to help relieve romtsaag-xi-usuaco pain and are often prescribed following a surgery or injury, or for certain health conditions. These medications can be an important part of the treatment but also come with serious risks. It is important to work with your healthcare provider to make sure you are getting the safest, most effective care. WHAT ARE THE RISKS AND SIDE EFFECTS OF OPIOID USE? Prescription opioids carry serious risks of addiction and overdose, especially with prolonged use. An opioid overdose, often marked by slowed breathing, can cause sudden . The use of prescription opioids can have a number of side effects as well, even when taken as directed: ? Tolerance?meaning you might need to take more of the medication for the same pain relief ? Physical dependence?meaning you have symptoms of withdrawal when a medication is stopped ? Increased sensitivity to pain ? Constipation ? Nausea, vomiting, and dry mouth ? Sleepiness and dizziness ? Confusion ? Depression ? Low levels of testosterone that can result in lower sex drive, energy, and strength ? Itching and sweating RISKS ARE GREATER WITH: ? History of drug misuse, substance use disorder, or overdose ? Mental health conditions (such as depression or anxiety) ? Sleep apnea ? Older age (65 years and older) ? Avoid alcohol while taking prescription opioids. Also, unless specifically advised by your health care provider, medications to avoid include: ? Benzodiazepines (such as Xanax or Valium) ? Muscle relaxants (such as Soma or Flexeril) ? Hypnotics (such as Ambien or Lunesta) ? Other prescription opioids KNOW YOUR OPTIONS Talk to your health care provider about ways to manage your pain that don?t involve prescription opioids. Some of these options may actually work better and have fewer risks and side effects. Options may include: ? Pain relievers such as acetaminophen, ibuprofen, and naproxen ? Some medication that are also used for depression or seizures ? Physical therapy and exercise ? Cognitive behavioral therapy, a psychological, goal-directed approach, in which patients learn how to modify physical, behavioral, and emotional triggers of pain and stress. IF YOU ARE PRESCRIBED OPIOIDS FOR PAIN: ? Never take opioids in greater amounts or more often than prescribed. ? Follow up with your primary health care provider. o Work together to create a plan on how to manage your pain. o Talk about ways to help manage your pain that don?t involve prescription opioids. o Talk about any and all concerns and side effects. ? Help prevent misuse and abuse o Never sell or share prescription opioids. o Never use another person?s prescription opioids. ? Store prescription opioids in a secure place and out of reach of others (this may include visitors, children, friends, and family). ? Safely dispose of unused prescription opioids: Find your community drug take-back program or your pharmacy mail-back program, or flush them down the toilet, following guidance from the Food and Drug Administration (www.fda.gov/Drugs/R esourcesForYou). ? Visit www.cdc.gov/drugover dose to learn about the risks of opioids abuse and overdose. ? If you believe you may be struggling with add (more content not included)... Normal [facility] Interdisciplinary Note - Eddy e Manageron 12-13-2022 Interdisciplinary Note - Synthetic Filament Spinner CRM spoke with patient and daughter Stanton in room. Patient is alert and oriented and participates in discharge planning. Patient white board updated, and CRM contact information provided. Discussed CRM spoke with [facility] who saw patient earlier today and needs SNF and can discharge when placement arranged and precert obtained. Patient has an ankle fx and unable to care for self and family unable to care for at home. Patient verified PCP, insurance and DME. Patent is form home alone and daughter will transport at discharge. Discussed SNF and [facility], provided a list of in net work facilities with quality metric ratings. Patient is admitted as OBS and discussed will need a precert for SNF, Will make referral to [facility]. [place]MA spoke with patient and 2 daughters Merari and Lizett in room and explained [facility] is [facility] for SNF and [facility] does not have any beds and [facility] only has a semi private room. Daughter suggest Swing bed at [facility]. CRM will have office staff call to see if they have any beds and if in network. if they are not family wants the semi private room at [facility]. Family called daughter Stanton and had her on speaker for conversation. Will make referral to [facility] swing bed. Normal [facility] Comment on above: Result Comment: Elec tronically Signed By: Elan REDDY, Asha\.br\Date and Time Signed: 12/13/22 15:50 EST Interdisciplinary Note - Swati n 12-13-2022 Interdisciplinary Note - OT OT six clicks score 1524 = SNF. Patient requires mod A w/ transfers and LE self care. Inpatient OT services to follow daily. Normal [facility] Interdisciplinary Note - Soc ial Workeron 12-13-2022 Interdisciplinary Note - Guest Service Representative Consult received for discharge planning. CRM is following for appropriate discharge planning. SW will remain available when / if needed. Normal [facility] XR Chest Single Viewon 12-13 XR Chest Single View Exam Date/Time: 12/12/2022 20:08 EST Reason for Exam: Shortness of breath (SOB) Report IMPRESSION: There is atelectasis versus infiltrate in the right lung base. CLINICAL HISTORY: Shortness of breath (SOB) COMPARISON: Chest x-ray from 12/10/2021 FINDINGS: The cardiac silhouette is enlarged. There is right lower lobe atelectasis versus infiltrate. The left lung is unremarkable. There are no acute osseous changes. FINAL REPORT Dictated: 12/13/2022 8:43 am Yifan Orellana MD, V. Signed (Electronic Signature): 12/13/2022 8:43 am Signed by: Yifan Orellana MD, V. Transcribed by: ADAN Technologist: NAYELI Normal [facility] Auto Diffon 12-12-2022 Basophils/100 WBC (Bld) 0.4 % Normal 0.0-2.0 [facility] Comment on above: Order Comment: Order Added by Discern Expert. Performed By: #### 1 [id number], [id number], [id number] #### [facility] [address] [place] [address] Basophils/Leukocytes Auto (Bld) [Pure # fraction] 0.0 E9/L Normal 0.0-0.2 [facility] Comment on above: Order Comment: Order Added by Discern Expert. Performed By: #### 1 [id number], [id number], [id number], [id number] #### [facility] [address] [place] [address] Eosinophils/100 WBC (Bld) 3.7 % Normal 0.0-8.0 [facility] Comment on above: Order Comment: Order Added by Katia Expert. Performed By: #### 1 [id number], 0740263, 5371488, [id number] #### [facility] [address] [place] [address] Eosinophils/Leukocytes Auto (Bld) [Pure # fraction] 0.4 E9/L Normal 0.0-0.5 [facility] Comment on above: Order Comment: Order Added by Katia Expert. Performed By: #### 1 [id number], 1409143, 0178550, [id number] #### [facility] [address] [place] [address] Lymphocytes/100 WBC (Bld) 24.6 % Normal 14.0-50.0 [facility] Comment on above: Order Comment: Order Added by Katia Expert. Performed By: #### 1 [id number], 4032726, 4989298, 4859911 #### [facility] [address] [place] [address] Lymphocytes/Leukocytes Auto (Bld) [Pure # fraction] 2.5 E9/L Normal 1.0-4.0 [facility] Comment on above: Order Comment: Order Added by Katia Expert. Performed By: #### 1 [id number], 1993293, 6477867, 5675040 #### [facility] [address] [place] [address] Monocytes/100 WBC (Bld) 7.6 % Normal 4.0-14.0 [facility] Comment on above: Order Comment: Order Added by Katia Expert. Performed By: #### 1 [id number], 8640735, 0074142, 2052696 #### [facility] [address] [place] [address] Monocytes/Leukocytes Auto (Bld) [Pure # fraction] 0.8 E9/L Normal 0.2-1.0 [facility] Comment on above: Order Comment: Order Added by Discern Expert. Performed By: #### 1 [id number], 0560731, 1424369, 7092013 #### [facility] [address] [place] [address] Neutrophils/100 WBC (Bld) 63.7 % Normal 36.0-75.0 [facility] Comment on above: Order Comment: Order Added by Discern Expert. Performed By: #### 1 8841833, 0838474, 9798752, 2588282 #### [facility] [address] [place] [address] Neutrophils/Leukocytes Auto (Bld) [Pure # fraction] 6.5 E9/L Normal 2.0-7.5 [facility] Comment on above: Order Comment: Order Added by Discern Expert. Performed By: #### 1 8814488, 3489167, 8311923, 9426239 #### [facility] [address] [place] [address] BMPon 12-12-2022 Creatinine [Mass/Vol] 0.9 mg/dL Normal 0.5-1.3 [facility] Comment on above: Performed By: #### 1 [id number], 9727138, 0997514, 6933439 #### [facility] [address] [place] [address] Urea nitrogen [Mass/Vol] 34 mg/dL High 5-21 [facility] Comment on above: Performed By: #### 1 1842412, 8690372, 8083333, 6813057 #### [facility] [address] [place] [address] Urea nitrogen/Creatinine [Mass ratio] 38 No Units High 10-20 [facility] Comment on above: Performed By: #### 1 9458823, 9422872, 2746471, 2680044 #### [facility] [address] [place] [address] Anion gap [Moles/Vol] 11 mmol/L Normal 6-16 [facility] Comment on above: Performed By: #### 1 5506630, 5410896, 5280248, 2355823 #### [facility] [address] [place] [address] Calcium [Mass/Vol] 9.2 mg/dL Normal 8.9-11.1 [facility] Comment on above: Performed By: #### 1 0950701, 4761379, 6072207, 3592339 #### [facility] [address] [place] [address] Chloride [Moles/Vol] 106 mmol/L Normal 101-111 [facility] Comment on above: Performed By: #### 1 7460098, 5062367, 3407811, 6723865 #### [facility] [address] [place] [address] CO2 [Moles/Vol] 28 mmol/L Normal 21-31 [facility] Comment on above: Performed By: #### 1 7946079, 7413569, 8050383, 3085262 #### [facility] [address] [place] [address] Glucose [Mass/Vol] 114 mg/dL Normal 55-199 [facility] Comment on above: Result Comment: If t his glucose result represents a fasting glucose, interpretation should refer to the following reference range: 55-99 mg/dL Performed By: #### 1 2876852, 1959097, 4583347, 0722862 #### [facility] [address] [place] [address] Potassium [Moles/Vol] 4.1 mmol/L Normal 3.5-5.3 [facility] Comment on above: Performed By: #### 1 7395945, 4092268, 5699662, 5485929 #### [facility] [address] [place] [address] Sodium [Moles/Vol] 141 mmol/L Normal 135-145 [facility] Comment on above: Performed By: #### 1 1820123, 6150667, 0303532, 1036627 #### [facility] [address] [place] [address] CBC w/ Auto Diffon Erythrocyte distribution width (RBC) [Ratio] 13.8 % Normal 10.9-14.2 [facility] Comment on above: Performed By: #### 1 5361330, 1466389, 7314750, 9654013 #### [facility] [address] [place] [address] Hematocrit (Bld) [Volume fraction] 36.8 % Normal 34.0-46.0 [facility] Comment on above: Performed By: #### 1 5952828, 7323024, 4089791, 9150912 #### [facility] [address] [place] [address] Hemoglobin (Bld) [Mass/Vol] 12.4 g/dL Normal 12.0-16.0 [facility] Comment on above: Performed By: #### 1 8639688, 2339140, 7548617, 2152280 #### [facility] [address] [place] [address] MCH (RBC) [Entitic mass] 31.8 pg Normal 27.0-34.0 [facility] Comment on above: Performed By: #### 1 2830397, 5891497, 4463492, 6099764 #### [facility] [address] [place] [address] MCHC (RBC) [Mass/Vol] 33.8 g/dL Normal 31.4-36.0 [facility] Comment on above: Performed By: #### 1 4093370, 1881186, 9904706, 9233046 #### [facility] [address] [place] [address] MCV (RBC) [Entitic vol] 94.2 fL Normal 80.0-100.0 [facility] Comment on above: Performed By: #### 1 5783277, 5466281, 9953348, 9682503 #### [facility] [address] [place] [address] Platelet mean volume (Bld) [Entitic vol] 7.3 fL Normal 6.4-10.8 [facility] Comment on above: Performed By: #### 1 9639790, 1366519, 7786698, 5727484 #### [facility] [address] [place] [address] Platelets (Bld) [#/Vol] 340.0 E9/L Normal 150.0-500.0 [facility] Comment on above: Performed By: #### 1 1270168, 6021539, 7353873, 2339323 #### [facility] [address] [place] [address] RBC (Bld) [#/Vol] 3.9 E12/L Low 4.3-5.9 [facility] Comment on above: Performed By: #### 1 4314597, 0047216, 9251176, 7494391 #### [facility] [address] [place] [address] WBC corrected for nucl RBC Auto (Bld) [#/Vol] 10.2 E9/L Normal 4.0-11.0 [facility] Comment on above: Performed By: #### 1 1362209, 8292623, 4543332, 7604405 #### [facility] [address] [place] [address] CHEMISTRYOrdered By: SYSTEM SYSTEM on 12-12-2022 Anion gap [Moles/Vol] 11 mmol/L Normal 6 - 16 mEq/L [facility] Calcium [Mass/Vol] 9.2 mg/dL Normal 8.9 - 11. 1 mg/dL [facility] Chloride [Moles/Vol] 106 mmol/L Normal 101 - 1 11 mmol/L [facility] CO2 [Moles/Vol] 28 mmol/L Normal 21 - 31 mmol/L [facility] Creatinine [Mass/Vol] 0.9 mg/dL Normal 0.5 - 1.3 mg/dL [facility] Glucose [Mass/Vol] 114 mg/dL Normal 55 - 199 mg/dL [facility] Potassium [Moles/Vol] 4.1 mmol/L Normal 3.5 - 5.3 mmol/L [facility] Sodium [Moles/Vol] 141 mmol/L Normal 135 - 145 mmol/L [facility] Remisol Troponin I.cardiac [Mass/Vol] 6.30 pg/mL Low 10.10 - 27.10 pg/mL [facility] Remisol Urea nitrogen [Mass/Vol] 34 mg/dL High 5 - 21 mg/dL [facility] Remisol Urea nitrogen/Creatinine [Mass ratio] 38 mg/mg High 10 - 20 [facility] Remisol Consent for Treatmenton 11-26 Consent for Treatment [id number] 30 [id number] #[id number]:127 Normal [facility] ED Note-Physicianon 12-12-19 23 ED Note-Physician Basic Information Time Seen: Julio Pham DO 12/12/2022 19:05 Chief Complaint pt. presents to the ed with c/o multiple falls, last one was on sunday. Pt. had one on was seen at [facility] and sent home with a right foot fracture. pt. is getting weaker and family would like her placed for rehab. History of Present Illness HPI: Patient is a 87-year-old female past medical history of aortic stenosis, GERD, COPD, hypertension, hyperlipidemia, hypothyroidism, rheumatoid arthritis, diabetes who presents the ED from home with family for generalized weakness and physical decline. Family states that over the past year she has become progressively weak and is now requiring 2 people just to transfer her when she needs to go to the bathroom. Over the past few weeks she has had several falls at home and recently broke a bone in her right foot. They have been working with her primary care physician and trying to get her into a rehabilitation facility or custodial but if unable to thus far. Family is concerned that she is a growing safety risk at home and that she is going to be seriously injured if she remains at home. Patient states that she otherwise is feeling well denies any fevers, chills, recent illness. ROS: Pertinent review of systems conducted and is negative except as noted above. Physical exam: General: nontoxic appearing and in no distress HEENT: Mucous membranes moist Neuro: awake and alert. Gross motor and station all 4 extremities intact. Neck: supple, trachea midline Card: Heart regular rate and rhythm, prominent systolic murmur present Resp: Lungs clear to auscultation no wheeze or rhonchi Abd: Soft and nondistended. No tenderness to palpation with no rebound or guarding. Ext: No gross deformity or edema, walking boot on the right lower extremity Physical Exam Vitals & Measurements T: 36.8 ?C(Oral) HR: 65(Monitored) RR: 27 BP: 186/72 SpO2: 97% HT: 167.64 cm WT: 118 kg BMI: 41.99 Medical Decision Making MEDICAL DECISION MAKING Number and Complexity of Problems Differential Diagnosis: Generalized weakness, UTI, pneumonia MDM Data External documents reviewed: N/A My EKG interpretation: Noted in chart if applicable My CT interpretation: N/A My X-ray interpretation: Noted in chart if applicable My Ultrasound interpretation: N/A Decision rules/scores evaluated: N/A Discussed with: Hospitalist on-call Treatment and Disposition ED Course: Patient is nontoxic-appearing in no distress. She has had slow clinical decline at home over the past 1 year per family. They found a point where they do not feel safe taking care of her at home and she has been having falls. They have been trying to get her into rehab versus custodial as an outpatient but have been unable to. We will obtain a generalized medical work-up. Work-up is overall unremarkable. Case was discussed with the hospitalist on-call who agreed to bring the patient in for observation. Shared decision making: As above Code status: N/A Assessment/Plan Generalized weakness (R53.1: Weakness) Hypertension (I10: Essential (primary) hypertension) Orders: acetaminophen, 650 mg = 2 tab(s), Tab, Oral, Once, Stop date 12/12/22 21:41:00 EST, STAT, Start date 12/12/22 21:41:00 EST, 12/12/22 21:41:00 EST Automated Diff Basic Metabolic Panel CBC w/ Auto Diff ED Physician consult Hospitalist for continued care Influenza A&B Ag Rapid COVID Antigen ([facility]) Saline Lock Insert Troponin 0 Hr. UA With Cult Reflex XR Chest Single View Disposition Plan Discharge Prescription List Prescriptions No active prescription medications Follow-up No qualifying data available Problem List/Past Medical History Ongoing Acid reflux Aortic stenosis Atherosclerosis of aortic arch Cerumen impaction Cervical disc disorder COPD with emphysema Edema Hallucinations Hand numbness HTN (hypertension), benign Hyperlipidemia, mixed Hypothyroid Immunodeficiency due to drugs Leg pain, left Other intermediate (current) drug therapy Rheumatoid arthritis Spinal stenosis, lumbar Type 2 diabetes mellitus with hyperlipidemia Type 2 diabetes mellitus with morbid obesity Unsteadiness on feet UTI (urinary tract infection) Voice hoarsenesses Historical Hyperlipidemia HYPERTENSION Morbid (severe) obesity due to excess calories Procedure/Surgical History Injection of hip using fluoroscopic guidance (11/23/2021), Injection of hip using fluoroscopic guidance (08/08/2021), Injection of facet joint using fluoroscopic guidance (11/06/2016), right cataract extraction with intraocular lens placement (03/08/2015), left cataract extraction with intraocular lens placement (01/18/2015), neck surgery (11/26/2005), Tubal ligation. Medications Inpatient No active inpatient medications Home aspirin 81 mg oral tablet, 81 mg= 1 tab(s), Oral, Daily atorvastatin 20 mg Tab, 20 mg= 1 tab(s), Oral, Once a day (at bedtime), 3 refills Compre (more content not included)... Normal [facility] Comment on above: Result Comment: Elec tronically Signed By: Julio Pham DO\.br\Date and Time Signed: 12/12/22 21:42 EST HEMATOLOGYOrdered By: SYSTEM SYSTEM on 12-12-2022 Basophils/100 WBC (Bld) 0.4 % Normal 0.0 - 2.0 % [facility] Basophils/Leukocytes Auto (Bld) [Pure # fraction] 0.0 E9/L Normal 0.0 - 0.2 E9/L [facility] Eosinophils/100 WBC (Bld) 3.7 % Normal 0.0 - 8.0 % [facility] Eosinophils/Leukocytes Auto (Bld) [Pure # fraction] 0.4 E9/L Normal 0.0 - 0.5 E9/L [facility] Lymphocytes/100 WBC (Bld) 24.6 % Normal 14.0 - 50.0 % [facility] Lymphocytes/Leukocytes Auto (Bld) [Pure # fraction] 2.5 E9/L Normal 1.0 - 4.0 E9/L [facility] Monocytes/100 WBC (Bld) 7.6 % Normal 4.0 - 14.0 % [facility] Monocytes/Leukocytes Auto (Bld) [Pure # fraction] 0.8 E9/L Normal 0.2 - 1.0 E9/L [facility] Neutrophils/100 WBC (Bld) 63.7 % Normal 36.0 - 75.0 % [facility] Neutrophils/Leukocytes Auto (Bld) [Pure # fraction] 6.5 E9/L Normal 2.0 - 7.5 E9/L [facility] HEMATOLOGYOrdered By: Mario Christine on 12-12-2022 Erythrocyte distribution width (RBC) [Ratio] 13.8 % Normal 10.9 - 14.2 % [facility] Hematocrit (Bld) [Volume fraction] 36.8 % Normal 34.0 - 46.0 % [facility] Hemoglobin (Bld) [Mass/Vol] 12.4 g/dL Normal 12.0 - 16.0 gm/dL [facility] MCH (RBC) [Entitic mass] 31.8 pg Normal 27.0 - 34.0 pg [facility] MCHC (RBC) [Mass/Vol] 33.8 g/dL Normal 31.4 - 36.0 gm/dL [facility] MCV (RBC) [Entitic vol] 94.2 fL Normal 80.0 - 100.0 fL [facility] Platelet mean volume (Bld) [Entitic vol] 7.3 fL Normal 6.4 - 10.8 fL [facility] Platelets (Bld) [#/Vol] 340.0 E9/L Normal 150.0 - 500.0 E9/L [facility] RBC (Bld) [#/Vol] 3.9 E12/L Low 4.3 - 5.9 E12/L [facility] WBC corrected for nucl RBC Auto (Bld) [#/Vol] 10.2 E9/L Normal 4.0 - 11.0 E9/L [facility] Influenza A&B Agon Influenzae A Ag Negative Normal Negative [facility] Comment on above: Performed By: #### 2 [id number] #### [facility] [address] [place] [address] Influenzae B Ag Negative Normal Negative [facility] Comment on above: Result Comment: Test sensitivity and specificity vary for age group, specimen type, antigen types, and prevalence of disease. Test results must be evaluated in conjunction with other clinical data available to the physician. Individuals who received nasally administered Influenza A vaccine may have positive test results up to 3 days after vaccination. Performed By: #### 2 [id number] #### [facility] [address] [place] [address] MICRO OTHER TESTSOrdered By: Mona Raymundo on 12-12-2022 Influenzae A Ag Negative (12/12/22 7:39 PM) Normal Negative [facility] Man Sero Influenzae B Ag Negative (12/12/22 7:39 PM) Normal Negative [facility] Man Sero Rapid COV Int NEG Ctl Pass (12/12/22 7:39 PM) Normal [facility] Man Sero Rapid COV Int POS Ctl Pass (12/12/22 7:39 PM) Normal [facility] Man Sero SARS-CoV+SARS-CoV-2 (COVID-19) Ag IA.rapid Ql (Resp) Not Detected (12/12/22 7:39 PM) Normal Not Detected [facility] Sero Rapid COVID Antigen ([facility])on 12-12-2022 Rapid COV Int NEG Ctl Pass Normal [facility] Comment on above: Performed By: #### 2 [id number] #### [facility] [address] [place] [address] Rapid COV Int POS Ctl Pass Normal [facility] Comment on above: Performed By: #### 2 [id number] #### [facility] [address] [place] [address] SARS-CoV+SARS-CoV-2 (COVID-19) Ag IA.rapid Ql (Resp) Not detected Normal Not Detected [facility] Comment on above: Result Comment: The [employer]? System for Rapid Detection of SARS-CoV-2 is a chromatographic digital immunoassay intended for the direct and qualitative detection of SARS-CoV-2 nucleocapsid antigens in nasal swabs from individuals who are suspected of COVID-19 by their healthcare provider within the first five days of the onset of symptoms. Negative results should be treated as presumptive, do not rule out SARS-CoV-2 infection and should not be used as the sole basis for treatment or patient management decisions, including infection control decisions. Negative results should be considered in the context of a patient?s recent exposures, history and the presence of clinical signs and symptoms consistent with COVID-19, and confirmed with a molecular assay, if necessary, for patient management. For in vitro diagnostic use. In the [place], only for use under an Emergency Use Authorization. In the [place], this test has not been FDA cleared or approved; this test has been authorized by FDA under an EUA for use by authorized laboratories; use by laboratories certified under the CLIA, 42 U.S.C. ?263a, that meet requirements to perform moderate, high, or waived complexity tests and at the Point of Care (POC), i.e., in patient care settings operating under a CLIA Certificate of Waiver, Certificate of Compliance, or Certificate of Accreditation. This test has been authorized only for the detection of proteins from SARS-CoV-2, not for any other viruses or pathogens; and, in the [place], this test is only authorized for the duration of the declaration that circumstances exist justifying the authorization of emergency use of in vitro diagnostics for detection and/or diagnosis of the virus that causes COVID-19 under Section 564(b)(1) of the Act, 21 U.S.C. ? 360bbb-3(b)(1), unless the authorization is terminated or revoked sooner. Performed By: #### 2 [id number] #### [facility] [address] [place] [address] ADMITTED TO INTENSIVE CARE UNIT FOR CONDITION OF INTEREST:FIND:PT: NO Normal [facility] Comment on above: Performed By: #### 2 [id number] #### [facility] [address] [place] [address] EMPLOYED IN A HEALTHCARE SETTING:FIND:PT: NO Normal [facility] Comment on above: Performed By: #### 2 [id number] #### [facility] [address] [place] [address] FIRST TEST FOR CONDITION OF INTEREST:FIND:PT: Unknown Normal [facility] Comment on above: Performed By: #### 2 [id number] #### [facility] [address] [place] [address] HAS SYMPTOMS RELATED TO CONDITION OF INTEREST:FIND:PT: YES Normal [facility] Comment on above: Performed By: #### 2 [id number] #### [facility] [address] [place] [address] HOSPITALIZED FOR CONDITION OF INTEREST:FIND:PT: Unknown Normal [facility] Comment on above: Performed By: #### 2 [id number] #### [facility] [address] [place] [address] STATUS:FIND:PT: NO Normal [facility] Comment on above: Performed By: #### 2 [id number] #### [facility] [address] [place] [address] RESIDES IN A CONGREGATE CARE SETTING:FIND:PT: NO Normal [facility] Comment on above: Performed By: #### 2 [id number] #### [facility] [address] [place] [address] Troponin 0 Hr.on 12-12-2022 Troponin I.cardiac [Mass/Vol] 6.30 pg/mL Low 10.10-27.10 [facility] Comment on above: Result Comment: The 95% CI (Confidence Interval) PPV (Positive Predictive Value) for myocardial infarction in females is 38 pg/mL, in males 51 pg/mL. The results should be used in conjunction with clinical conditions of myocardial infarction. (Access High Sensitivity Troponin I Instructions For Use, Johanny Gimahhot, June 2018) Performed By: #### 1 [id number] #### [facility] [address] [place] [address] UA With Cult Reflexon 2022 Bilirubin Ql (U) Negative Normal Negative [facility] Comment on above: Performed By: #### 1 [id number] #### [facility] [address] [place] [address] Clarity (U) CLEAR Normal Clear [facility] Comment on above: Performed By: #### 1 [id number] #### [facility] [address] [place] [address] Color (U) YELLOW Normal Yellow [facility] Comment on above: Performed By: #### 1 [id number] #### [facility] [address] [place] [address] Epithelial cells.squamous LM.HPF (Urine sed) [#/Area] 0-2 Normal 0-2 [facility] Comment on above: Performed By: #### 1 [id number] #### [facility] [address] [place] [address] Glucose Test strip (U) [Mass/Vol] Negative Normal Negative [facility] Comment on above: Performed By: #### 1 [id number] #### [facility] [address] [place] [address] Hemoglobin Ql (U) Negative Normal Negative [facility] Comment on above: Performed By: #### 1 [id number] #### [facility] [address] [place] [address] Ketones (U) [Mass/Vol] Negative Normal Negative [facility] Comment on above: Performed By: #### 1 [id number] #### [facility] [address] [place] [address] [place].plasma/[place] .RBC (Bld) [Mass ratio] 0-3 Normal 0-3 [facility] Comment on above: Performed By: #### 1 [id number] #### [facility] [address] [place] [address] Nitrite Ql (U) Negative Normal Negative [facility] Comment on above: Performed By: #### 1 [id number] #### [facility] [address] [place] [address] pH (U) 5.0 [pH] Invalid Interpretation Code 5.0-9.0 [facility] Comment on above: Performed By: #### 1 [id number] #### [facility] [address] [place] [address] Protein (U) [Mass/Vol] Negative Normal Negative [facility] Comment on above: Performed By: #### 1 [id number] #### [facility] [address] [place] [address] Specific gravity (U) [Rel density] 1.020 Invalid Interpretation Code 1.005-1.030 [facility] Comment on above: Performed By: #### 1 [id number] #### [facility] [address] [place] [address] Type of Urine collection method Clean Catch Normal [facility] Comment on above: Performed By: #### 1 [id number] #### [facility] [address] [place] [address] Urobilinogen Qn (U) 0.2 {Pollo'U}/dL Normal 0.0-1.0 [facility] Comment on above: Performed By: #### 1 [id number] #### [facility] [address] [place] [address] WBC Auto Ql (U) Negative Normal Negative [facility] Comment on above: Performed By: #### 1 [id number] #### [facility] [address] [place] [address] WBC LM.HPF (Urine sed) [#/Area] 0-5 Normal 0-5 [facility] Comment on above: Performed By: #### 1 [id number] #### [facility] [address] [place] [address] URINALYSISOrdered By: Lizzie Raymundo on 12-12-2022 Bilirubin Ql (U) Negative (12/12/22 8:38 PM) Normal Negative [facility] UA Auto SS Clarity (U) Clear (12/12/22 8:38 PM) Normal Clear [facility] UA Auto SS Color (U) Yellow (12/12/22 8:38 PM) Normal Yellow [facility] UA Auto SS Epithelial cells.squamous LM.HPF (Urine sed) [#/Area] 0-2 /HPF Normal 0-2/HPF [facility] UA Aut o SS Glucose Test strip (U) [Mass/Vol] Negative (12/12/22 8:38 PM) Normal Negative [facility] UA Auto SS Hemoglobin Ql (U) Negative (12/12/22 8:38 PM) Normal Negative [facility] UA Auto SS Ketones (U) [Mass/Vol] Negative (12/12/22 8:38 PM) Normal Negative [facility] UA Auto SS [place].plasma/[place] .RBC (Bld) [Mass ratio] 0-3 /HPF Normal 0-3/HPF [facility] UA Auto SS Nitrite Ql (U) Negative (12/12/22 8:38 PM) Normal Negative [facility] UA Auto SS pH (U) 5.0 *NA* (12/12/22 8:38 PM) Invalid Interpretation Code 5.0 - 9.0 [facility] UA Auto SS Protein (U) [Mass/Vol] Negative (12/12/22 8:38 PM) Normal Negative [facility] UA Auto SS Specific gravity (U) [Rel density] 1.020 *NA* (12/12/22 8:38 PM) Invalid Interpretation Code 1.005 - 1.030 [facility] UA Auto SS UA Spec Desc Clean Catch (12/12/22 8:38 PM) Normal [facility] UA Auto SS Urobilinogen Qn (U) 0.4709860 {Pollo'U}/dL Normal 0.0 - 1.0 EU/dL [facility] UA Auto SS WBC Auto Ql (U) Negative (12/12/22 8:38 PM) Normal Negative [facility] UA Auto SS WBC LM.HPF (Urine sed) [#/Area] 0-5 /HPF Normal 0-5/HPF [facility] UA Auto SS ED Note-Physicianon 12-08-19 ED Note-Physician [id number] #1.00CD:127 Normal [facility] RAD - MISCon 12-08-2022 RAD - MISC [id number] #1.00CD:127 Normal [facility] XR ANKLE RIGHT (MIN 3 VIEWS) on 12-07-2022 XR ANKLE RIGHT (MIN 3 VIEWS) EXAM: XR ANKLE RIGHT (MIN 3 VIEWS) HISTORY: Reason for exam:->injury COMPARISON: None. TECHNIQUE: 3 views of the right ankle FINDINGS: Acute nondisplaced oblique fracture of the distal fibula is seen. Joint alignment is normal. Joint spaces are preserved. Soft tissue swelling seen about the lateral ankle. Plantar and posterior calcaneal spur is seen. IMPRESSION: Acute distal fibular fracture. Interpreted by: Karly Arzate MD Signed by: Karly Arzate MD 12/07/22 Final result Normal [facility] Acute distal fibular fracture. [facility] EXAM: XR ANKLE RIGHT (MIN 3 VIEWS) HISTORY: Reason for exam:->injury COMPARISON: None. TECHNIQUE: 3 views of the right ankle FINDINGS: Acute nondisplaced oblique fracture of the distal fibula is seen. Joint alignment is normal. Joint spaces are preserved. Soft tissue swelling seen about the lateral ankle. Plantar and posterior calcaneal spur is seen. [facility] Karly Arzate MD - 12/07/2022 EXAM: XR ANKLE RIGHT (MIN 3 VIEWS) HISTORY: Reason for exam:->injury COMPARISON: None. TECHNIQUE: 3 views of the right ankle FINDINGS: Acute nondisplaced oblique fracture of the distal fibula is seen. Joint alignment is normal. Joint spaces are preserved. Soft tissue swelling seen about the lateral ankle. Plantar and posterior calcaneal spur is seen. IMPRESSION: Acute distal fibular fracture. [facility] [employer] Phone: Radiology Study observation (narrative) [facility] [employer] Phone: XR ANKLE RIGHT (MIN 3 VIEWS) Ordered By: Karly Arzate on 12-07-2022 [facility] [employer] Phone: CHEMISTRYOrdered By: SYSTEM SYSTEM on 09-28-2022 Albumin [Mass/Vol] 3.7 g/dL Normal 3.3 - 5.0 gm/dL [facility] Remisol Albumin/Globulin [Mass ratio] 1.1 {ratio} Normal 1.1 - 2.2 [facility] ALP [Catalytic activity/Vol] 79 [iU]/d Normal 21 - 98 Int._Unit/L [facility] ALT No additional P-5'-P [Catalytic activity/Vol] 36 [iU]/d Normal 6 - 46 Int._Unit/L [facility] Rem[facility] Anion gap [Moles/Vol] 11 mmol/L Normal 6 - 16 mEq/L [facility] Remisol AST [Catalytic activity/Vol] 17 [iU]/d Normal 5 - 43 Int._Unit/L [facility] Bilirubin [Mass/Vol] 1.0 mg/dL Normal 0.0 - 1 .1 mg/dL [facility] Calcium [Mass/Vol] 9.3 mg/dL Normal 8.9 - 11. 1 mg/dL [facility] Chloride [Moles/Vol] 102 mmol/L Normal 101 - 1 11 mmol/L [facility] Cholesterol [Mass/Vol] 143 mg/dL Normal 120 - 200 mg/dL [facility] Cholesterol in HDL [Mass/Vol] 49 mg/dL Invalid Interpretation Code [facility] Cholesterol in LDL [Mass/Vol] 76 mg/dL Normal <=129mg/dL [facility] Cholesterol in VLDL [Mass/Vol] 31 mg/dL Normal 7 - 40 mg/dL [facility] CO2 [Moles/Vol] 29 mmol/L Normal 21 - 31 mmol/L [facility] Creatinine [Mass/Vol] 0.8 mg/dL Normal 0.5 - 1.3 mg/dL [facility] Free T4 [Mass/Vol] 0.96 ng/dL Normal 0.58 - 1. 64 ng/dL [facility] GFR/1.73 sq M.predicted among blacks MDRD (S/P/Bld) [Vol rate/Area] mL/min/1.73 m2 Normal >=59mL/min/1 .73 m2 [facility] Chem S GFR/1.73 sq M.predicted among non-blacks MDRD (S/P/Bld) [Vol rate/Area] mL/min/1.73 m2 Normal >=59mL/min/1 .73 m2 [facility] Chem S Globulin (S) [Mass/Vol] 3.4 g/dL Normal 1.4 - 4.0 gm/dL [facility] Glucose [Mass/Vol] 133 mg/dL Normal 55 - 199 mg/dL [facility] Potassium [Moles/Vol] 3.9 mmol/L Normal 3.5 - 5.3 mmol/L [facility] Protein [Mass/Vol] 7.1 g/dL Normal 6.0 - 7.8 gm/dL [facility] Sodium [Moles/Vol] 138 mmol/L Normal 135 - 145 mmol/L [facility] Triglyceride [Mass/Vol] 153 mg/dL High <=149mg/dL [facility] TSH Qn 1.48 m[IU]/L Normal 0.34 - 5.60 mcIU/mL [facility] Urea nitrogen [Mass/Vol] 15 mg/dL Normal 5 - 21 mg/dL [facility] Urea nitrogen/Creatinine [Mass ratio] 19 mg/mg Normal 10 - 20 [facility] CHEMISTRYOrdered By: Josseline Stanley on 09-28-2022 HbA1c (Bld) [Mass fraction] 6.2 % High <=5.9% [facility] [employer] HEMATOLOGYOrdered By: SYSTEM SYSTEM on 09-28-2022 Basophils/100 WBC (Bld) 0.3 % Normal 0.0 - 2.0 % [facility] HemeAutoSS Basophils/Leukocytes Auto (Bld) [Pure # fraction] 0.0 E9/L Normal 0.0 - 0.2 E9/L [facility] Eosinophils/100 WBC (Bld) 3.2 % Normal 0.0 - 8.0 % [facility] Eosinophils/Leukocytes Auto (Bld) [Pure # fraction] 0.4 E9/L Normal 0.0 - 0.5 E9/L [facility] Lymphocytes/100 WBC (Bld) 27.9 % Normal 14.0 - 50.0 % [facility] Lymphocytes/Leukocytes Auto (Bld) [Pure # fraction] 3.2 E9/L Normal 1.0 - 4.0 E9/L [facility] Monocytes/100 WBC (Bld) 6.1 % Normal 4.0 - 14.0 % [facility] Monocytes/Leukocytes Auto (Bld) [Pure # fraction] 0.7 E9/L Normal 0.2 - 1.0 E9/L [facility] Neutrophils/100 WBC (Bld) 62.5 % Normal 36.0 - 75.0 % [facility] Neutrophils/Leukocytes Auto (Bld) [Pure # fraction] 7.1 E9/L Normal 2.0 - 7.5 E9/L [facility] HEMATOLOGYOrdered By: Fran Mccray on 09-28-2022 Erythrocyte distribution width (RBC) [Ratio] 13.9 % Normal 10.9 - 14.2 % [facility] Hematocrit (Bld) [Volume fraction] 40.9 % Normal 34.0 - 46.0 % [facility] Hemoglobin (Bld) [Mass/Vol] 13.7 g/dL Normal 12.0 - 16.0 gm/dL [facility] MCH (RBC) [Entitic mass] 31.4 pg Normal 27.0 - 34.0 pg [facility] MCHC (RBC) [Mass/Vol] 33.5 g/dL Normal 31.4 - 36.0 gm/dL [facility] MCV (RBC) [Entitic vol] 93.7 fL Normal 80.0 - 100.0 fL [facility] Platelet mean volume (Bld) [Entitic vol] 8.4 fL Normal 6.4 - 10.8 fL [facility] Platelets (Bld) [#/Vol] 252.0 E9/L Normal 150.0 - 500.0 E9/L [facility] RBC (Bld) [#/Vol] 4.4 E12/L Normal 4.3 - 5.9 E12/L [facility] HemeAutoSS WBC corrected for nucl RBC Auto (Bld) [#/Vol] 11.5 E9/L High 4.0 - 11.0 E9/L [facility] HemeAutoSS CBC Auto Differentialon 07-27 Absolute Eos # 0.50 High [facility] Absolute Lymph # 2.40 [facility] Absolute Archer # 0.60 [facility] Basophils (Bld) [#/Vol] 0.00 10*3/uL [facility] Basophils/100 WBC (Bld) 0 % 0 - 2 % [facility] Differential Type YES [facility] Eosinophils/100 WBC (Bld) 5 % 0 - 5 % [facility] Hematocrit (Bld) [Volume fraction] 37.0 % 36 - 46 % [facility] Hemoglobin (Bld) [Mass/Vol] 12.5 g/dL 12 - 16 g/dL [facility] Interpretation and review of laboratory results Abnormal [facility] Lymphocytes/100 WBC (Bld) 25 % 15 - 40 % [facility] MCH (RBC) [Entitic mass] 31.6 pg 26 - 34 pg [facility] MCHC (RBC) [Mass/Vol] 33.8 g/dL 31 - 37 g/dL B ON [facility] MCV (RBC) [Entitic vol] 93.5 fL 80 - 100 fL [facility] Monocytes/100 WBC (Bld) 6 % 4 - 8 % [facility] Platelet distribution width (Bld) [Ratio] 13.2 % 12.1 - 15.2 % [facility] Platelets (Bld) [#/Vol] 320 10*3/uL [facility] RBC (Bld) [#/Vol] 3.95 10*6/uL Low 4 - 5.2 m/uL [facility] Segmented neutrophils/100 WBC (Bld) 64 % 47 - 75 % [facility] Segs Absolute 5.90 [facility] WBC (Bld) [#/Vol] 9.3 10*3/uL [facility] Comprehensive Metabolic Pane salima 08-08-2022 Albumin [Mass/Vol] 3.6 g/dL 3.5 - 5.2 g/dL [facility] ALP (Bld) [Catalytic activity/Vol] 111 U/L High 35 - 104 U/L [facility] ALT [Catalytic activity/Vol] 20 U/L 5 - 33 U/L [facility] Anion gap [Moles/Vol] 10 mmol/L 9 - 17 mmol/L [facility] AST [Catalytic activity/Vol] 20 U/L NINF - 32 U/L [facility] Bilirubin [Mass/Vol] 0.5 mg/dL 0.3 - 1 .2 mg/dL [facility] Calcium [Mass/Vol] 9.7 mg/dL 8.6 - 10. 4 mg/dL [facility] Chloride [Moles/Vol] 102 mmol/L 98 - 10 7 mmol/L [facility] CO2 [Moles/Vol] 28 mmol/L 20 - 31 mmol/L [facility] Creatinine [Mass/Vol] 0.77 mg/dL 0.5 - 0.9 mg/dL [facility] Free PSA/Total PSA [Mass fraction] 6.7 g/dL 6.4 - 8.3 g/dL [facility] GFR >60 60 - PI NF mL/min [facility]LESOxford SemiconductorUNIVERS[facility] GFR Non- >60 60 - PINF mL/min [facility] [employer] GFR/1.73 sq M.predicted MDRD (S/P/Bld) [Vol rate/Area] [facility] INCUR[facility]LESConcept.io [facility] Comment on above: Average GFR for 70 o r more years old: 75 mL/min/1.73sq m Chronic Kidney Disease: <60 mL/min/1.73sq m Kidney failure: <15 mL/min/1.73sq m eGFR calculated using average adult body mass. Additional eGFR calculator available at: http://www.[employer]oo[employer]/multiple_crcl_2012.htm Glucose [Mass/Vol] 126 mg/dL High 70 - 99 mg/dL [facility] INCURABLESSemEquip Interpretation and review of laboratory results Abnormal [facility] [employer] Potassium [Moles/Vol] 4.8 mmol/L 3.7 - 5.3 mmol/L [facility]LESOxford SemiconductorUNIVERS[facility] ST[facility] Sodium [Moles/Vol] 140 mmol/L 135 - 144 mmol/L [facility] [employer] Urea nitrogen (BldV) [Mass/Vol] 22 mg/dL 8 - 23 mg/dL [facility] Urea nitrogen/Creatinine (Bld) [Mass ratio] 29 High 9 - 20 [facility] Lipid Panelon 08-08-2022 Cholesterol [Mass/Vol] 138 mg/dL NINF - 200 mg/dL [facility] Comment on above: Cholesterol Guidelines: <200 Desirable 200-240 Borderline >240 Undesirable Cholesterol in HDL [Mass/Vol] 42 mg/dL 40 - PINF mg/dL [facility] Comment on above: HDL Guidelines: <40 Undesirable 40-59 Borderline >59 Desirable Cholesterol in LDL [Mass/Vol] 72 mg/dL 0 - 130 mg/dL [facility] Comment on above: LDL Guidelines: <100 Desirable 100-129 Near to/above Desirable 130-159 Borderline >159 Undesirable Direct (measured) LDL and calculated LDL are not interchangeable tests. Cholesterol.total/Chol esterol in HDL [Mass ratio] 3.3 {ratio} NINF - 5 [facility] Triglyceride [Mass/Vol] 122 mg/dL NINF - 150 mg/dL [facility] Comment on above: Triglyceride Guidelines: <150 Desirable 150-199 Borderline 200-499 High >499 Very high Based on AHA Guidelines for fasting triglyceride, August 2012. [facility]duranceUN[facility] Magnesiumon 08-08-2022 Magnesium [Mass/Vol] 1.7 mg/dL 1.6 - 2 .6 mg/dL [facility] No Panel Informationon 08-08 [facility] Patient Fasting?on 2 Patient Fasting? yes [facility] TSH with Reflexon 08-08-2022 TSH Qn 2.08 m[IU]/L [facility] [employer] Vitamin D 25 Hydroxyon 08-08 Vit D, 25-Hydroxy 40.6 ng/mL 29.9 - PIN F ng/mL [facility] [employer] Comment on above: Reference Range: Vitamin D status Range Deficiency <20 ng/mL Mild Deficiency 20-30 ng/mL Sufficiency 30-100 ng/mL Toxicity >100 ng/mL [facility] [employer] XR CHEST (2 VW)on 08-08-2022 Chronic changes and emphysema, similar. [facility] EXAM: XR CHEST (2 VW) HISTORY: Reason for exam:->a fib, 86-year-old female COMPARISON: Chest 09/12/2021 TECHNIQUE: 2 views chest FINDINGS: Chronic interstitial stranding at the lung bases, stable. Prior sternotomy. Heart size upper normal. Degenerative changes spine. Likely emphysematous overinflation. [facility] Bang Godoy Jr., MD - 08/08/2022 EXAM: XR CHEST (2 VW) HISTORY: Reason for exam:->a fib, 86-year-old female COMPARISON: Chest 09/12/2021 TECHNIQUE: 2 views chest FINDINGS: Chronic interstitial stranding at the lung bases, stable. Prior sternotomy. Heart size upper normal. Degenerative changes spine. Likely emphysematous overinflation. IMPRESSION: Chronic changes and emphysema, similar. [facility] INCURABLESSem[facility]ip Work Phone: Radiology Study observation (narrative) [facility]UR[facility]LESOxford Semiconductor [employer] Work Phone: XR CHEST (2 VW)Ordered By: Lyudmila Godoy on 08-08-2022 [facility] [employer] Phone: URINALYSISOrdered By: Pola Castaneda on 07-25-2022 Bacteria LM Ql (Urine sed) 2+ /HPF Invalid Interpretation Code Trace/HPF [facility] UA Auto SS Bilirubin Ql (U) Negative (07/25/22 10:15 PM) Normal Negative [facility] UA Auto SS Clarity (U) Clear (07/25/22 10:15 PM) Normal Clear [facility] UA Auto SS Color (U) Yellow (07/25/22 10:15 PM) Normal Yellow [facility] UA Auto SS Epithelial cells.squamous LM.HPF (Urine sed) [#/Area] 0-2 /HPF Normal 0-2/HPF [facility] UA Aut o SS Glucose Test strip (U) [Mass/Vol] Negative (07/25/22 10:15 PM) Normal Negative [facility] UA Auto SS Hemoglobin Ql (U) Negative (07/25/22 10:15 PM) Normal Negative [facility] UA Auto SS Ketones (U) [Mass/Vol] Trace *ABN* (07/25/22 10:15 PM) Invalid Interpretation Code Negative [facility] UA Auto SS [place].plasma/[place] .RBC (Bld) [Mass ratio] 0-3 /HPF Normal 0-3/HPF [facility] UA Auto SS Mucus Ql (Urine sed) 1+ (07/25/22 10:15 PM) Normal [facility] UA Auto SS Nitrite Ql (U) Negative (07/25/22 10:15 PM) Normal Negative [facility] UA Auto SS pH (U) 5.5 *NA* (07/25/22 10:15 PM) Invalid Interpretation Code 5.0 - 9.0 [facility] UA Auto SS Protein (U) [Mass/Vol] Negative (07/25/22 10:15 PM) Normal Negative [facility] UA Auto SS Specific gravity (U) [Rel density] >=1.030 *NA* (07/25/22 10:15 PM) Invalid Interpretation Code 1.005 - 1.030 [facility] UA Auto SS UA Spec Desc Random Urine (07/25/22 10:15 PM) Normal [facility] UA Auto SS Urobilinogen Qn (U) 1.6544301 {Pollo'U}/dL Normal 0.0 - 1.0 EU/dL [facility] UA Auto SS WBC Auto Ql (U) 1+ *ABN* (07/25/22 10:15 PM) Invalid Interpretation Code Negative [facility] UA Auto SS WBC LM.HPF (Urine sed) [#/Area] 16-25 /HPF Invalid Interpretation Code 0-5/HPF [facility] UA Auto SS CHEMISTRYOrdered By: SYSTEM SYSTEM on 06-19-2022 Albumin [Mass/Vol] 3.9 g/dL Normal 3.3 - 5.0 gm/dL [facility] Albumin/Globulin [Mass ratio] 1.2 {ratio} Normal 1.1 - 2.2 [facility] ALP [Catalytic activity/Vol] 70 [iU]/d Normal 21 - 98 Int._Unit/L [facility] ALT No additional P-5'-P [Catalytic activity/Vol] 22 [iU]/d Normal 6 - 46 Int._Unit/L [facility] Anion gap [Moles/Vol] 10 mmol/L Normal 6 - 16 mEq/L [facility] AST [Catalytic activity/Vol] 21 [iU]/d Normal 5 - 43 Int._Unit/L [facility] Bilirubin [Mass/Vol] 1.0 mg/dL Normal 0.0 - 1 .1 mg/dL [facility] Calcium [Mass/Vol] 9.5 mg/dL Normal 8.9 - 11. 1 mg/dL [facility] Chloride [Moles/Vol] 103 mmol/L Normal 101 - 1 11 mmol/L [facility] Cholesterol [Mass/Vol] 144 mg/dL Normal 120 - 200 mg/dL [facility] Cholesterol in HDL [Mass/Vol] 47 mg/dL Invalid Interpretation Code [facility] Cholesterol in LDL [Mass/Vol] 79 mg/dL Normal <=129mg/dL [facility] Cholesterol in VLDL [Mass/Vol] 21 mg/dL Normal 7 - 40 mg/dL [facility] CO2 [Moles/Vol] 25 mmol/L Normal 21 - 31 mmol/L [facility] Creatinine [Mass/Vol] 0.8 mg/dL Normal 0.5 - 1.3 mg/dL [facility] GFR/1.73 sq M.predicted among blacks MDRD (S/P/Bld) [Vol rate/Area] mL/min/1.73 m2 Normal >=59mL/min/1 .73 m2 [facility] Chem S GFR/1.73 sq M.predicted among non-blacks MDRD (S/P/Bld) [Vol rate/Area] mL/min/1.73 m2 Normal >=59mL/min/1 .73 m2 [facility] Chem S Globulin (S) [Mass/Vol] 3.3 g/dL Normal 1.4 - 4.0 gm/dL [facility] Glucose [Mass/Vol] 133 mg/dL Normal 55 - 199 mg/dL [facility] Potassium [Moles/Vol] 4.4 mmol/L Normal 3.5 - 5.3 mmol/L [facility] Protein [Mass/Vol] 7.2 g/dL Normal 6.0 - 7.8 gm/dL [facility] Sodium [Moles/Vol] 134 mmol/L Low 135 - 145 mmol/L [facility] Triglyceride [Mass/Vol] 105 mg/dL Normal <=149mg/dL [facility] Urea nitrogen [Mass/Vol] 27 mg/dL High 5 - 21 mg/dL [facility] Urea nitrogen/Creatinine [Mass ratio] 34 mg/mg High 10 - 20 [facility] CHEMISTRYOrdered By: Josseline Stanley on 06-19-2022 HbA1c (Bld) [Mass fraction] 6.4 % High <=5.9% [facility] ChemAutoSS HEMATOLOGYOrdered By: SYSTEM SYSTEM on 06-19-2022 Basophils/100 WBC (Bld) 0.4 % Normal 0.0 - 2.0 % [facility]SS Basophils/Leukocytes Auto (Bld) [Pure # fraction] 0.0 E9/L Normal 0.0 - 0.2 E9/L [facility] Eosinophils/100 WBC (Bld) 2.4 % Normal 0.0 - 8.0 % [facility] Eosinophils/Leukocytes Auto (Bld) [Pure # fraction] 0.2 E9/L Normal 0.0 - 0.5 E9/L [facility] Lymphocytes/100 WBC (Bld) 25.8 % Normal 14.0 - 50.0 % [facility] Lymphocytes/Leukocytes Auto (Bld) [Pure # fraction] 2.4 E9/L Normal 1.0 - 4.0 E9/L [facility] Monocytes/100 WBC (Bld) 6.6 % Normal 4.0 - 14.0 % [facility] Monocytes/Leukocytes Auto (Bld) [Pure # fraction] 0.6 E9/L Normal 0.2 - 1.0 E9/L [facility] Neutrophils/100 WBC (Bld) 64.8 % Normal 36.0 - 75.0 % [facility] Neutrophils/Leukocytes Auto (Bld) [Pure # fraction] 6.1 E9/L Normal 2.0 - 7.5 E9/L [facility] HEMATOLOGYOrdered By: Fran Mccray on 06-19-2022 Erythrocyte distribution width (RBC) [Ratio] 13.6 % Normal 10.9 - 14.2 % [facility] Hematocrit (Bld) [Volume fraction] 38.8 % Normal 34.0 - 46.0 % [facility] Hemoglobin (Bld) [Mass/Vol] 13.5 g/dL Normal 12.0 - 16.0 gm/dL [facility] MCH (RBC) [Entitic mass] 32.6 pg Normal 27.0 - 34.0 pg [facility] MCHC (RBC) [Mass/Vol] 34.8 g/dL Normal 31.4 - 36.0 gm/dL [facility] MCV (RBC) [Entitic vol] 93.5 fL Normal 80.0 - 100.0 fL [facility] [facility] Platelet mean volume (Bld) [Entitic vol] 7.1 fL Normal 6.4 - 10.8 fL [facility] Platelets (Bld) [#/Vol] 287.0 E9/L Normal 150.0 - 500.0 E9/L [facility] RBC (Bld) [#/Vol] 4.2 E12/L Low 4.3 - 5.9 E12/L [facility] WBC corrected for nucl RBC Auto (Bld) [#/Vol] 9.4 E9/L Normal 4.0 - 11.0 E9/L [facility] CHEMISTRYOrdered By: SYSTEM SYSTEM on 05-22-2022 Albumin [Mass/Vol] 3.5 g/dL Normal 3.3 - 5.0 gm/dL [facility] Albumin/Globulin [Mass ratio] 1.0 {ratio} Low 1.1 - 2.2 [facility] ALP [Catalytic activity/Vol] 69 [iU]/d Normal 21 - 98 Int._Unit/L [facility] ALT No additional P-5'-P [Catalytic activity/Vol] 22 [iU]/d Normal 6 - 46 Int._Unit/L [facility] Anion gap [Moles/Vol] 11 mmol/L Normal 6 - 16 mEq/L [facility] AST [Catalytic activity/Vol] 19 [iU]/d Normal 5 - 43 Int._Unit/L [facility] Bilirubin [Mass/Vol] 0.9 mg/dL Normal 0.0 - 1 .1 mg/dL [facility] Calcium [Mass/Vol] 9.4 mg/dL Normal 8.9 - 11. 1 mg/dL [facility] Chloride [Moles/Vol] 106 mmol/L Normal 101 - 1 11 mmol/L [facility] CO2 [Moles/Vol] 25 mmol/L Normal 21 - 31 mmol/L [facility] Creatinine [Mass/Vol] 0.7 mg/dL Normal 0.5 - 1.3 mg/dL [facility] GFR/1.73 sq M.predicted among blacks MDRD (S/P/Bld) [Vol rate/Area] mL/min/1.73 m2 Normal >=59mL/min/1 .73 m2 [facility] Chem S GFR/1.73 sq M.predicted among non-blacks MDRD (S/P/Bld) [Vol rate/Area] mL/min/1.73 m2 Normal >=59mL/min/1 .73 m2 [facility] Chem S Globulin (S) [Mass/Vol] 3.6 g/dL Normal 1.4 - 4.0 gm/dL [facility] Glucose [Mass/Vol] 135 mg/dL Normal 55 - 199 mg/dL [facility] Potassium [Moles/Vol] 4.2 mmol/L Normal 3.5 - 5.3 mmol/L [facility] Protein [Mass/Vol] 7.1 g/dL Normal 6.0 - 7.8 gm/dL [facility] Sodium [Moles/Vol] 138 mmol/L Normal 135 - 145 mmol/L [facility] Urea nitrogen [Mass/Vol] 18 mg/dL Normal 5 - 21 mg/dL [facility] Urea nitrogen/Creatinine [Mass ratio] 26 mg/mg High 10 - 20 [facility] HEMATOLOGYOrdered By: SYSTEM SYSTEM on 05-22-2022 Basophils/100 WBC (Bld) 0.4 % Normal 0.0 - 2.0 % [facility] Basophils/Leukocytes Auto (Bld) [Pure # fraction] 0.0 E9/L Normal 0.0 - 0.2 E9/L [facility] Eosinophils/100 WBC (Bld) 3.7 % Normal 0.0 - 8.0 % [facility] Eosinophils/Leukocytes Auto (Bld) [Pure # fraction] 0.4 E9/L Normal 0.0 - 0.5 E9/L [facility] Lymphocytes/100 WBC (Bld) 29.9 % Normal 14.0 - 50.0 % [facility] Lymphocytes/Leukocytes Auto (Bld) [Pure # fraction] 2.9 E9/L Normal 1.0 - 4.0 E9/L [facility] Monocytes/100 WBC (Bld) 7.8 % Normal 4.0 - 14.0 % [facility] Monocytes/Leukocytes Auto (Bld) [Pure # fraction] 0.8 E9/L Normal 0.2 - 1.0 E9/L [facility] Neutrophils/100 WBC (Bld) 58.2 % Normal 36.0 - 75.0 % [facility] Neutrophils/Leukocytes Auto (Bld) [Pure # fraction] 5.6 E9/L Normal 2.0 - 7.5 E9/L [facility] HEMATOLOGYOrdered By: Fran Stanley on 05-22-2022 Erythrocyte distribution width (RBC) [Ratio] 13.7 % Normal 10.9 - 14.2 % [facility] Hematocrit (Bld) [Volume fraction] 37.1 % Normal 34.0 - 46.0 % [facility] Hemoglobin (Bld) [Mass/Vol] 12.9 g/dL Normal 12.0 - 16.0 gm/dL [facility] MCH (RBC) [Entitic mass] 32.7 pg Normal 27.0 - 34.0 pg [facility] MCHC (RBC) [Mass/Vol] 34.9 g/dL Normal 31.4 - 36.0 gm/dL [facility] MCV (RBC) [Entitic vol] 93.7 fL Normal 80.0 - 100.0 fL [facility] Platelet mean volume (Bld) [Entitic vol] 7.5 fL Normal 6.4 - 10.8 fL [facility] Platelets (Bld) [#/Vol] 274.0 E9/L Normal 150.0 - 500.0 E9/L [facility] RBC (Bld) [#/Vol] 4.0 E12/L Low 4.3 - 5.9 E12/L [facility] Sed Rate Automated 18 mm/h Normal 0 - 34 mm/hr [facility] WBC corrected for nucl RBC Auto (Bld) [#/Vol] 9.6 E9/L Normal 4.0 - 11.0 E9/L [facility] No Panel Informationon 05-03 Chondrocalcinosis and degenerative changes. [facility] EXAM: XR WRIST RIGHT (MIN 3 VIEWS), XR WRIST LEFT (MIN 3 VIEWS) HISTORY: M25.531 86-year-old female with bilateral wrist pain. COMPARISON: None. TECHNIQUE: 3 views right wrist, 3 views left wrist FINDINGS: Bilateral chondrocalcinosis in the triangular fibrocartilage, left greater than right. 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 Diffuse arterial calcifications. Mild radiocarpal joint space narrowing. No fracture. [facility] Bang Godoy Jr., MD - 05/03/2022 EXAM: XR WRIST RIGHT (MIN 3 VIEWS), XR WRIST LEFT (MIN 3 VIEWS) HISTORY: M25.531 86-year-old female with bilateral wrist pain. COMPARISON: None. TECHNIQUE: 3 views right wrist, 3 views left wrist FINDINGS: Bilateral chondrocalcinosis in the triangular fibrocartilage, left greater than right. 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 Diffuse arterial calcifications. Mild radiocarpal joint space narrowing. No fracture. IMPRESSION: Chondrocalcinosis and degenerative changes. [facility] Phone: No Panel InformationOrdered By: Bang Godoy on 05-03-2022 [facility] Phone: XR WRIST LEFT (MIN 3 VIEWS)o n 05-03-2022 Radiology Study observation (narrative) [facility] Phone: XR WRIST RIGHT (MIN 3 VIEWS) on 05-03-2022 Radiology Study observation (narrative) [facility] Phone: CHEMISTRYOrdered By: SYSTEM SYSTEM on 02-14-2022 Albumin [Mass/Vol] 3.7 g/dL Normal 3.3 - 5.0 gm/dL [facility] Albumin/Globulin [Mass ratio] 1.2 {ratio} Normal 1.1 - 2.2 [facility] ALP [Catalytic activity/Vol] 86 [iU]/d Normal 21 - 98 Int._Unit/L [facility] ALT No additional P-5'-P [Catalytic activity/Vol] 27 [iU]/d Normal 6 - 46 Int._Unit/L [facility] Anion gap [Moles/Vol] 15 mmol/L Normal 6 - 16 mEq/L [facility] AST [Catalytic activity/Vol] 27 [iU]/d Normal 5 - 43 Int._Unit/L [facility] Bilirubin [Mass/Vol] 0.5 mg/dL Normal 0.0 - 1 .1 mg/dL [facility] Calcium [Mass/Vol] 10.0 mg/dL Normal 8.9 - 11. 1 mg/dL [facility] Chloride [Moles/Vol] 101 mmol/L Normal 101 - 1 11 mmol/L [facility] CO2 [Moles/Vol] 26 mmol/L Normal 21 - 31 mmol/L [facility] Creatinine [Mass/Vol] 0.8 mg/dL Normal 0.5 - 1.3 mg/dL [facility] GFR/1.73 sq M.predicted among blacks MDRD (S/P/Bld) [Vol rate/Area] mL/min/1.73 m2 Normal >=59mL/min/1 .73 m2 [facility] S GFR/1.73 sq M.predicted among non-blacks MDRD (S/P/Bld) [Vol rate/Area] mL/min/1.73 m2 Normal >=59mL/min/1 .73 m2 [facility] Chem S Globulin (S) [Mass/Vol] 3.1 g/dL Normal 1.4 - 4.0 gm/dL [facility] Glucose [Mass/Vol] 126 mg/dL Normal 55 - 199 mg/dL [facility] Potassium [Moles/Vol] 4.7 mmol/L Normal 3.5 - 5.3 mmol/L [facility] Protein [Mass/Vol] 6.8 g/dL Normal 6.0 - 7.8 gm/dL [facility] Sodium [Moles/Vol] 137 mmol/L Normal 135 - 145 mmol/L [facility] Urea nitrogen [Mass/Vol] 20 mg/dL Normal 5 - 21 mg/dL [facility] Urea nitrogen/Creatinine [Mass ratio] 25 mg/mg High 10 - 20 [facility] HEMATOLOGYOrdered By: SYSTEM SYSTEM on 02-14-2022 Basophils/100 WBC (Bld) 0.5 % Normal 0.0 - 2.0 % [facility] Basophils/Leukocytes Auto (Bld) [Pure # fraction] 0.0 E9/L Normal 0.0 - 0.2 E9/L [facility] Eosinophils/100 WBC (Bld) 5.2 % Normal 0.0 - 8.0 % [facility] Eosinophils/Leukocytes Auto (Bld) [Pure # fraction] 0.5 E9/L Normal 0.0 - 0.5 E9/L [facility] Lymphocytes/100 WBC (Bld) 36.4 % Normal 14.0 - 50.0 % [facility] Lymphocytes/Leukocytes Auto (Bld) [Pure # fraction] 3.3 E9/L Normal 1.0 - 4.0 E9/L [facility] Monocytes/100 WBC (Bld) 7.8 % Normal 4.0 - 14.0 % [facility] Monocytes/Leukocytes Auto (Bld) [Pure # fraction] 0.7 E9/L Normal 0.2 - 1.0 E9/L [facility] Neutrophils/100 WBC (Bld) 50.1 % Normal 36.0 - 75.0 % [facility] Neutrophils/Leukocytes Auto (Bld) [Pure # fraction] 4.6 E9/L Normal 2.0 - 7.5 E9/L [facility] HEMATOLOGYOrdered By: Lauren Gillespie on 02-14-2022 Erythrocyte distribution width (RBC) [Ratio] 13.8 % Normal 10.9 - 14.2 % [facility] Hematocrit (Bld) [Volume fraction] 37.8 % Normal 34.0 - 46.0 % [facility] Hemoglobin (Bld) [Mass/Vol] 13.0 g/dL Normal 12.0 - 16.0 gm/dL [facility] MCH (RBC) [Entitic mass] 31.8 pg Normal 27.0 - 34.0 pg [facility] MCHC (RBC) [Mass/Vol] 34.6 g/dL Normal 31.4 - 36.0 gm/dL [facility] MCV (RBC) [Entitic vol] 91.9 fL Normal 80.0 - 100.0 fL [facility] Platelet mean volume (Bld) [Entitic vol] 7.8 fL Normal 6.4 - 10.8 fL [facility] Platelets (Bld) [#/Vol] 289.0 E9/L Normal 150.0 - 500.0 E9/L [facility] RBC (Bld) [#/Vol] 4.1 E12/L Low 4.3 - 5.9 E12/L [facility] Sed Rate Automated 14 mm/h Normal 0 - 34 mm/hr [facility] WBC corrected for nucl RBC Auto (Bld) [#/Vol] 9.2 E9/L Normal 4.0 - 11.0 E9/L [facility] CHEMISTRYOrdered By: SYSTEM SYSTEM on 12-14-2021 Albumin [Mass/Vol] 3.6 g/dL Normal 3.3 - 5.0 gm/dL [facility] Albumin/Globulin [Mass ratio] 1.1 {ratio} Normal 1.1 - 2.2 [facility] ALP [Catalytic activity/Vol] 94 [iU]/d Normal 21 - 98 Int._Unit/L [facility] ALT No additional P-5'-P [Catalytic activity/Vol] 21 [iU]/d Normal 6 - 46 Int._Unit/L [facility] Anion gap [Moles/Vol] 14 mmol/L Normal 6 - 16 mEq/L [facility] AST [Catalytic activity/Vol] 17 [iU]/d Normal 5 - 43 Int._Unit/L [facility] Bilirubin [Mass/Vol] 0.8 mg/dL Normal 0.0 - 1 .1 mg/dL [facility] Calcium [Mass/Vol] 9.4 mg/dL Normal 8.9 - 11. 1 mg/dL [facility] Chloride [Moles/Vol] 103 mmol/L Normal 101 - 1 11 mmol/L [facility] CO2 [Moles/Vol] 26 mmol/L Normal 21 - 31 mmol/L [facility] Creatinine [Mass/Vol] 0.9 mg/dL Normal 0.5 - 1.3 mg/dL [facility] GFR/1.73 sq M.predicted among blacks MDRD (S/P/Bld) [Vol rate/Area] mL/min/1.73 m2 Normal >=59mL/min/1 .73 m2 [facility] Chem S GFR/1.73 sq M.predicted among non-blacks MDRD (S/P/Bld) [Vol rate/Area] 60 mL/min/1.73 m2 Normal >=59mL/min/1 .73 m2 [facility] Chem S Globulin (S) [Mass/Vol] 3.2 g/dL Normal 1.4 - 4.0 gm/dL [facility] Glucose [Mass/Vol] 125 mg/dL Normal 55 - 199 mg/dL [facility] Potassium [Moles/Vol] 4.2 mmol/L Normal 3.5 - 5.3 mmol/L [facility] Protein [Mass/Vol] 6.8 g/dL Normal 6.0 - 7.8 gm/dL [facility] Sodium [Moles/Vol] 139 mmol/L Normal 135 - 145 mmol/L [facility] Urea nitrogen [Mass/Vol] 23 mg/dL High 5 - 21 mg/dL [facility] Urea nitrogen/Creatinine [Mass ratio] 26 mg/mg High 10 - 20 [facility] HEMATOLOGYOrdered By: SYSTEM SYSTEM on 12-14-2021 Basophils/100 WBC (Bld) 0.5 % Normal 0.0 - 2.0 % [facility] Basophils/Leukocytes Auto (Bld) [Pure # fraction] 0.0 E9/L Normal 0.0 - 0.2 E9/L [facility] Eosinophils/100 WBC (Bld) 6.1 % Normal 0.0 - 8.0 % [facility] Eosinophils/Leukocytes Auto (Bld) [Pure # fraction] 0.5 E9/L Normal 0.0 - 0.5 E9/L [facility] Lymphocytes/100 WBC (Bld) 40.0 % Normal 14.0 - 50.0 % [facility] Lymphocytes/Leukocytes Auto (Bld) [Pure # fraction] 3.0 E9/L Normal 1.0 - 4.0 E9/L [facility] Monocytes/100 WBC (Bld) 8.7 % Normal 4.0 - 14.0 % [facility] Monocytes/Leukocytes Auto (Bld) [Pure # fraction] 0.6 E9/L Normal 0.2 - 1.0 E9/L [facility] Neutrophils/100 WBC (Bld) 44.7 % Normal 36.0 - 75.0 % [facility] Neutrophils/Leukocytes Auto (Bld) [Pure # fraction] 3.3 E9/L Normal 2.0 - 7.5 E9/L [facility] HEMATOLOGYOrdered By: Nandini Juarez on 12-14-2021 Erythrocyte distribution width (RBC) [Ratio] 13.4 % Normal 10.9 - 14.2 % [facility] Hematocrit (Bld) [Volume fraction] 39.1 % Normal 34.0 - 46.0 % [facility] Hemoglobin (Bld) [Mass/Vol] 13.3 g/dL Normal 12.0 - 16.0 gm/dL [facility] MCH (RBC) [Entitic mass] 31.8 pg Normal 27.0 - 34.0 pg [facility] MCHC (RBC) [Mass/Vol] 34.1 g/dL Normal 31.4 - 36.0 gm/dL [facility] MCV (RBC) [Entitic vol] 93.3 fL Normal 80.0 - 100.0 fL [facility] Platelet mean volume (Bld) [Entitic vol] 7.7 fL Normal 6.4 - 10.8 fL [facility] Platelets (Bld) [#/Vol] 295.0 E9/L Normal 150.0 - 500.0 E9/L [facility] RBC (Bld) [#/Vol] 4.2 E12/L Low 4.3 - 5.9 E12/L [facility] WBC corrected for nucl RBC Auto (Bld) [#/Vol] 7.5 E9/L Normal 4.0 - 11.0 E9/L [facility] HEMATOLOGYOrdered By: Daisy Diego on 12-14-2021 Sed Rate Automated 13 mm/h Normal 0 - 34 mm/hr [facility] XR LUMBAR SPINE (MIN 4 VIEWS )on 10-02-2021 No acute lumbar spine findings. Chronic changes are described above. If the patient has focal tenderness, further evaluation with MRI is recommended. [facility] EXAM: XR LUMBAR SPINE (MIN 4 VIEWS) HISTORY: Right sided lumbar spine pain following fall. COMPARISON: Thoracic spine radiographs, 10/02/2021. TECHNIQUE: Standard 5 views of the lumbar spine. FINDINGS: No acute lumbar spine fracture, compression deformity or spondylolisthesis is seen. 5 lumbar vertebral bodies are normal in height and alignment. Diffuse spondylosis is noted with multilevel mild to moderate degenerative disc disease and a mild broad levoscoliosis. Calcifications are noted in the T11-T12 disc space. The articular facets are normally aligned. Multilevel bilateral degenerative neural foraminal narrowing is noted. The sacrum and sacroiliac joints appear intact. There are dense aortic calcifications without aneurysm. [facility] Armand Chen MD - 10/02/2021 EXAM: XR LUMBAR SPINE (MIN 4 VIEWS) HISTORY: Right sided lumbar spine pain following fall. COMPARISON: Thoracic spine radiographs, 10/02/2021. TECHNIQUE: Standard 5 views of the lumbar spine. FINDINGS: No acute lumbar spine fracture, compression deformity or spondylolisthesis is seen. 5 lumbar vertebral bodies are normal in height and alignment. Diffuse spondylosis is noted with multilevel mild to moderate degenerative disc disease and a mild broad levoscoliosis. Calcifications are noted in the T11-T12 disc space. The articular facets are normally aligned. Multilevel bilateral degenerative neural foraminal narrowing is noted. The sacrum and sacroiliac joints appear intact. There are dense aortic calcifications without aneurysm. IMPRESSION: No acute lumbar spine findings. Chronic changes are described above. If the patient has focal tenderness, further evaluation with MRI is recommended. [employer] Phone: [employer] Phone: Radiology Study observation (narrative) [employer] Phone: XR THORACIC SPINE (3 VIEWS)o n 10-02-2021 EXAM: XR THORACIC SPINE (3 VIEWS) HISTORY: Reason for exam:->Pain thoracic spine after fall COMPARISON: Chest 2 views, 09/12/2021. TECHNIQUE: Status post fall with mid to lower thoracic pain. FINDINGS: No acute thoracic spine fracture or compression deformity is seen. The thoracic vertebral bodies appear normal in height and alignment with a mild broad dextroscoliosis and extensive osteophytosis. Anterior fusion hardware is seen in the lower cervical spine. [facility] Armand Myrick MD - 10/02/2021 EXAM: XR THORACIC SPINE (3 VIEWS) HISTORY: Reason for exam:->Pain thoracic spine after fall COMPARISON: Chest 2 views, 09/12/2021. TECHNIQUE: Status post fall with mid to lower thoracic pain. FINDINGS: No acute thoracic spine fracture or compression deformity is seen. The thoracic vertebral bodies appear normal in height and alignment with a mild broad dextroscoliosis and extensive osteophytosis. Anterior fusion hardware is seen in the lower cervical spine. IMPRESSION: No acute thoracic spine findings. If pain persists, further evaluation with CT scan or MRI could be considered. [facility] Phone: Radiology Study observation (narrative) [facility] Phone: XR THORACIC SPINE (3 VIEWS)O rdered By: Armand Chen on 10-02-2021 [employer] [facility] Phone: CBC Auto DifferentialOrdered By: Emiliano Deng on 09-12-2021 [facility] [employer] # 0.20 [employer] Phone: Absolute Immature Granulocyte NOT REPORTED [employer] Phone: Absolute Lymph # 1.70 [employer] [facility] Work Phone: Absolute Archer # 0.[address] [facility] Work Phone: Basophils (Bld) [#/Vol] 0.00 10*3/uL [employer] Work Phone: Basophils/100 WBC (Bld) 0 % 0 - 2 % [employer] Work Phone: Differential Type YES [employer] Work Phone: Eosinophils/100 WBC (Bld) 3 % 0 - 5 % [employer] Phone: Hematocrit (Bld) [Volume fraction] 37.3 % 36 - 46 % [employer] Phone: Hemoglobin.gastrointes tinal spec 1 Ql (Stl) 12.5 g/dL 12.0 - 16.0 g/dL [employer] Phone: Immature Granulocytes NOT REPORTED 0 % M [employer] Work Phone: Interpretation and review of laboratory results Abnormal [employer] Phone: Lymphocytes/100 WBC (Bld) 27 % 15 - 40 % [employer] Phone: MCH (RBC) [Entitic mass] 31.7 pg 26 - 34 pg [employer] Phone: MCHC (RBC) [Mass/Vol] 33.4 g/dL 31 - 37 g/dL [facility] [employer] Phone: MCV (RBC) [Entitic vol] 94.9 fL 80 - 100 fL [facility] Phone: Monocytes/100 WBC (Bld) 6 % 4 - 8 % [employer] [facility] Phone: NRBC Automated NOT REPORTED per 100 WBC [facility] Work Phone: Platelet distribution width (Bld) [Ratio] 14.1 % 12.1 - 15.2 % [employer] Phone: Platelet Estimate NOT REPORTED [employer] Phone: Platelet mean volume (Bld) [Entitic vol] NOT REPORTED 6.0 - 12.0 fL [employer] Work Phone: Platelets (Bld) [#/Vol] 311 10*3/uL [employer] Work Phone: RBC (Bld) [#/Vol] 3.93 10*6/uL Low 4.0 - 5.2 m/uL [employer] Phone: RBC (Bld) [#/Vol] NOT REPORTED [employer] Phone: Segmented neutrophils/100 WBC (Bld) 64 % 47 - 75 % [employer] Work Phone: Segs Absolute 4.20 [employer] Work Phone: WBC (Bld) [#/Vol] 6.6 10*3/uL [employer] Work Phone: WBC (Bld) [#/Vol] NOT REPORTED [employer] Phone: [employer] Work Phone: Comprehensive Metabolic Pane lOrdered By: Emiliano Deng on 09-12-2021 Albumin [Mass/Vol] 3.7 g/dL 3.5 - 5.2 g/dL [employer] Phone: Albumin/Globulin Ratio NOT REPORTED [employer] Phone: ALP (Bld) [Catalytic activity/Vol] 95 U/L 35 - 104 U/L [employer] Phone: ALT [Catalytic activity/Vol] 17 U/L 5 - 33 U/L [employer] Work Phone: Anion gap [Moles/Vol] 9 mmol/L 9 - 17 mmol/L [employer] Phone: AST [Catalytic activity/Vol] 16 U/L <32 [employer] Phone: Bilirubin [Mass/Vol] 0.48 mg/dL 0.30 - 1.20 mg/dL [employer] Phone: Calcium [Mass/Vol] 9.1 mg/dL 8.6 - 10. 4 mg/dL [employer] Phone: Chloride [Moles/Vol] 105 mmol/L 98 - 10 7 mmol/L [employer] Phone: CO2 [Moles/Vol] 26 mmol/L 20 - 31 mmol/L [employer] Phone: Creatinine [Mass/Vol] 0.64 mg/dL 0.50 - 0.90 mg/dL [employer] Phone: Free PSA/Total PSA [Mass fraction] 6.7 g/dL 6.4 - 8.3 g/dL [employer] Phone: GFR >60 >60 mL/min [employer] Phone: GFR Non- >60 >60 mL/min [employer] Phone: GFR/1.73 sq M.predicted MDRD (S/P/Bld) [Vol rate/Area] [employer] Phone: Comment on above: Average GFR for 70 o r more years old: 75 mL/min/1.73sq m Chronic Kidney Disease: <60 mL/min/1.73sq m Kidney failure: <15 mL/min/1.73sq m eGFR calculated using average adult body mass. Additional eGFR calculator available at: http://www.[employer]/multiple_crcl_2012.htm GFR/1.73 sq M.predicted MDRD (S/P/Bld) [Vol rate/Area] NOT REPORTED [facility] Phone: Glucose [Mass/Vol] 128 mg/dL High 70 - 99 mg/dL [employer] Phone: Interpretation and review of laboratory results Abnormal [employer] Phone: Potassium [Moles/Vol] 3.6 mmol/L Low 3.7 - 5.3 mmol/L [employer] Phone: Sodium [Moles/Vol] 140 mmol/L 135 - 144 mmol/L [employer] Phone: Urea nitrogen (BldV) [Mass/Vol] 14 mg/dL 8 - 23 mg/dL [employer] Phone: Urea nitrogen/Creatinine (Bld) [Mass ratio] 22 High [employer] Phone: Lipid PanelOrdered By: Emiliano Deng on 09-12-2021 Cholesterol [Mass/Vol] 138 mg/dL <200 [facility] [employer] Phone: Comment on above: Cholesterol Guidelines: <200 Desirable 200-240 Borderline >240 Undesirable Cholesterol in HDL [Mass/Vol] 55 mg/dL >40 [employer] Phone: Comment on above: HDL Guidelines: <40 Undesirable 40-59 Borderline >59 Desirable Cholesterol in LDL [Mass/Vol] 63 mg/dL 0 - 130 mg/dL [facility] Phone: Comment on above: LDL Guidelines: <100 Desirable 100-129 Near to/above Desirable 130-159 Borderline >159 Undesirable Direct (measured) LDL and calculated LDL are not interchangeable tests. Cholesterol in VLDL [Mass/Vol] NOT REPORTED 1 - 30 mg/dL [facility] Phone: Cholesterol.total/Chol esterol in HDL [Mass ratio] 2.5 {ratio} <5 [employer] Phone: Triglyceride [Mass/Vol] 101 mg/dL <150 [facility] Phone: Comment on above: Triglyceride Guidelines: <150 Desirable 150-199 Borderline 200-499 High >499 Very high Based on AHA Guidelines for fasting triglyceride, August 2012. [employer] Phone: MagnesiumOrdered By: Emiliano nam on 09-12-2021 Magnesium [Mass/Vol] 1.7 mg/dL 1.6 - 2 .6 mg/dL [employer] Phone: No Panel InformationOrdered By: Emiliano Deng on 09-12-2021 [employer] Phone: Patient Fasting?Ordered By: Emiliano Deng on 09-12-2021 Patient Fasting? yes [employer] Work Phone: [employer] Phone: TSH with ReflexOrdered By: Lloyd Deng on 09-12-2021 TSH Qn 1.77 m[IU]/L [employer] [facility] Phone: Vitamin D 25 HydroxyOrdered By: Emiliano Deng on 09-12-2021 Vit D, 25-Hydroxy 35.6 ng/mL 30.0 - 100 .0 ng/mL [facility] Phone: Comment on above: Reference Range: Vitamin D status Range Deficiency <20 ng/mL Mild Deficiency 20-30 ng/mL Sufficiency 30-100 ng/mL Toxicity >100 ng/mL [employer] Phone: XR CHEST (2 VW)Ordered By: Lloyd Deng on 09-12-2021 COPD with mild nonspecific reticular opacities at the lung bases favoring atelectasis and/or fibrotic scarring. The lungs appear otherwise clear. [employer] Phone: EXAM: XR CHEST (2 VW) HISTORY: Reason for exam:->cad COMPARISON: Chest, 09/13/2020. TECHNIQUE: Frontal and lateral views of the chest. FINDINGS: Mild cardiomegaly is unchanged. The mediastinal contour and pulmonary vascularity appear within normal limits. There is mild reticular opacity of both lung bases favoring atelectasis and/or fibrotic scarring over interstitial pneumonitis. The lungs show mild hyperinflation but appear otherwise clear. A broad thoracic dextroscoliosis is unchanged with multilevel spondylosis. Anterior fusion hardware near the cervicothoracic junction appears unchanged. [facility] Phone: Anupam, Mhpn Incoming Radiant Results From [employer] - 09/12/2021 12:29 PM EDT EXAM: XR CHEST (2 VW) HISTORY: Reason for exam:->cad COMPARISON: Chest, 09/13/2020. TECHNIQUE: Frontal and lateral views of the chest. FINDINGS: Mild cardiomegaly is unchanged. The mediastinal contour and pulmonary vascularity appear within normal limits. There is mild reticular opacity of both lung bases favoring atelectasis and/or fibrotic scarring over interstitial pneumonitis. The lungs show mild hyperinflation but appear otherwise clear. A broad thoracic dextroscoliosis is unchanged with multilevel spondylosis. Anterior fusion hardware near the cervicothoracic junction appears unchanged. IMPRESSION: COPD with mild nonspecific reticular opacities at the lung bases favoring atelectasis and/or fibrotic scarring. The lungs appear otherwise clear. [employer] Phone: [employer] [facility] Phone: CHEMISTRYOrdered By: SYSTEM SYSTEM on 08-24-2021 Albumin [Mass/Vol] 3.6 g/dL Normal 3.3 - 5.0 gm/dL [facility] Albumin/Globulin [Mass ratio] 1.2 {ratio} Normal 1.1 - 2.2 [facility] ALP [Catalytic activity/Vol] 80 [iU]/d Normal 21 - 98 Int._Unit/L [facility] ALT No additional P-5'-P [Catalytic activity/Vol] 53 [iU]/d High 6 - 46 Int._Unit/L [facility] Anion gap [Moles/Vol] 14 mmol/L Normal 6 - 16 mEq/L [facility] AST [Catalytic activity/Vol] 34 [iU]/d Normal 5 - 43 Int._Unit/L [facility] Bilirubin [Mass/Vol] 0.8 mg/dL Normal 0.0 - 1 .1 mg/dL [facility] Remisol Calcium [Mass/Vol] 9.3 mg/dL Normal 8.9 - 11. 1 mg/dL [facility] Remisol Chloride [Moles/Vol] 103 mmol/L Normal 101 - 1 11 mmol/L [facility] Rem[facility] CO2 [Moles/Vol] 25 mmol/L Normal 21 - 31 mmol/L [facility] Remisol Creatinine [Mass/Vol] 0.7 mg/dL Normal 0.5 - 1.3 mg/dL [facility] Remisol GFR/1.73 sq M.predicted among blacks MDRD (S/P/Bld) [Vol rate/Area] mL/min/1.73 m2 Normal >=59mL/min/1 .73 m2 [facility] Chem S GFR/1.73 sq M.predicted among non-blacks MDRD (S/P/Bld) [Vol rate/Area] mL/min/1.73 m2 Normal >=59mL/min/1 .73 m2 [facility] Chem S Globulin (S) [Mass/Vol] 3.0 g/dL Normal 1.4 - 4.0 gm/dL FT Remisol Glucose [Mass/Vol] 118 mg/dL Normal 55 - 199 mg/dL [facility] Remisol Potassium [Moles/Vol] 4.0 mmol/L Normal 3.5 - 5.3 mmol/L [facility] Remisol Protein [Mass/Vol] 6.6 g/dL Normal 6.0 - 7.8 gm/dL [facility] Remisol Sodium [Moles/Vol] 138 mmol/L Normal 135 - 145 mmol/L [facility] Remisol Urea nitrogen [Mass/Vol] 26 mg/dL High 5 - 21 mg/dL [facility] Remisol Urea nitrogen/Creatinine [Mass ratio] 37 mg/mg High 10 - 20 [facility] Remisol HEMATOLOGYOrdered By: SYSTEM SYSTEM on 08-24-2021 Basophils/100 WBC (Bld) 0.5 % Normal 0.0 - 2.0 % [facility] HemeAutoSS Basophils/Leukocytes Auto (Bld) [Pure # fraction] 0.1 E9/L Normal 0.0 - 0.2 E9/L [facility] HemeAutoSS Eosinophils/100 WBC (Bld) 4.2 % Normal 0.0 - 8.0 % [facility] HemeAutoSS Eosinophils/Leukocytes Auto (Bld) [Pure # fraction] 0.4 E9/L Normal 0.0 - 0.5 E9/L [facility] HemeAutoSS Lymphocytes/100 WBC (Bld) 26.7 % Normal 14.0 - 50.0 % [facility] HemeAutoSS Lymphocytes/Leukocytes Auto (Bld) [Pure # fraction] 2.7 E9/L Normal 1.0 - 4.0 E9/L [facility] HemeAutoSS Monocytes/100 WBC (Bld) 8.9 % Normal 4.0 - 14.0 % [facility] HemeAutoSS Monocytes/Leukocytes Auto (Bld) [Pure # fraction] 0.9 E9/L Normal 0.2 - 1.0 E9/L [facility] HemeAutoSS Neutrophils/100 WBC (Bld) 59.7 % Normal 36.0 - 75.0 % [facility] HemeAutoSS Neutrophils/Leukocytes Auto (Bld) [Pure # fraction] 6.0 E9/L Normal 2.0 - 7.5 E9/L [facility] HemeAutoSS HEMATOLOGYOrdered By: Derrick Rios on 08-24-2021 Erythrocyte distribution width (RBC) [Ratio] 13.6 % Normal 10.9 - 14.2 % [facility] HemeAutoSS Hematocrit (Bld) [Volume fraction] 37.9 % Normal 34.0 - 46.0 % [facility] HemeAutoSS Hemoglobin (Bld) [Mass/Vol] 12.6 g/dL Normal 12.0 - 16.0 gm/dL [facility] HemeAutoSS MCH (RBC) [Entitic mass] 31.8 pg Normal 27.0 - 34.0 pg [facility] HemeAutoSS MCHC (RBC) [Mass/Vol] 33.3 g/dL Normal 31.4 - 36.0 gm/dL [facility] HemeAutoSS MCV (RBC) [Entitic vol] 95.4 fL Normal 80.0 - 100.0 fL [facility] HemeAutoSS Platelet mean volume (Bld) [Entitic vol] 7.7 fL Normal 6.4 - 10.8 fL [facility] HemeAutoSS Platelets (Bld) [#/Vol] 270.0 E9/L Normal 150.0 - 500.0 E9/L [facility] HemeAutoSS RBC (Bld) [#/Vol] 4.0 E12/L Low 4.3 - 5.9 E12/L [facility] HemeAutoSS Sed Rate Automated 16 mm/h Normal 0 - 34 mm/hr [facility] HemeAutoSS WBC corrected for nucl RBC Auto (Bld) [#/Vol] 10.0 E9/L Normal 4.0 - 11.0 E9/L [facility] HemeAutoSS VL DUP LOWER EXTREMITY VENOU S LEFTOrdered By: Xena Andrews on 06-13-2021 Anupam, [facility] Incoming Cardio Results From [facility]/Ge - 06/14/2021 8:21 AM EDT [facility] Vascular Lower Extremities DVT Study Procedure Patient Name BRIDGET Date of Study 06/13/2021 ALEENA Dixon Date of 1935 Gender Female Age 85 year(s) Race Room Number Corporate ID # [id number] Patient MR # [id number] Sap Data Analyst Kiya Forte, RT Interpreting Physician Heri Godoy Referring Nurse Referring Physician Efrain Esparza Practitioner Xena Andrews Procedure Type of Study: Veins: Lower Extremities DVT Study, DUP LOWER EXTREMITY VENOUS LEFT. Indications for Study:Pain, leg. Patient Status:Routine. Technical Quality:Limited visualization. Limitation reason:Limited exam due to patient unable to tolerate procedure, leg and hip pain. Comments:Patient unable to tolerate procedure and was in too much pain and something else would have to be done. cw Conclusions Summary Patient could not tolerate further evaluation of the calf on the left. Negative for DVT from left groin through popliteal v. Signature ---- ---- ---- ---- Left Impression: CFV, DFV, FV , POPv vessels compressed. CFV, DFV, FV prox and mid augmented and POPv. No evidence of DVT in limited exam due to patient unable to tolerate procedure, expressed alot of groin, hip and lower leg pain. Duplex scan using B-mode, Dia scale imaging. Spectral doppler analysis and color flow throughout the exam. Velocities are measured in cm/s ; Diameters are measured in cm Left Lower Extremities DVT Study Measurements Left 2D Measurements + +-- --------+ ----+ + !Location !Visualized!Compress ibility!Thrombosis! + +-- --------+ ----+ + !Common Femoral !Yes !Yes !None ! + +-- --------+ ----+ + !Prox Femoral !Yes !Yes !None ! + +-- --------+ ----+ + !Mid Femoral !Yes !Yes !None ! + +-- --------+ ----+ + !Dist Femoral !Yes !Yes !None ! + +-- --------+ ----+ + !Deep Femoral !Yes !Yes !None ! + +-- --------+ ----+ + !Popliteal !Yes !Yes !None ! + +-- --------+ ----+ + Consulting Services Phone: Consulting Services Phone: XR HIP 2-3 VW W PELVIS LEFTO rdered By: Xena Andrews on 06-11-2021 1. Mild to moderate degenerative changes are noted in both hips. 2. No fracture or dislocation is identified. 3. Atherosclerosis. [employer] Phone: PELVIS AND LEFT HIP RADIOGRAPH 06/11/2021 COMPARISON: None. ADDITIONAL HISTORY: Left hip pain. TECHNIQUE: Frontal views of the pelvis were obtained along with frontal and frog-leg lateral views of the left hip. FINDINGS: Mild to moderate superolateral joint space narrowing is noted in both hips along with mild degenerative spurring in both acetabula and at the margins of the femoral heads. No fracture or dislocation is identified. No suspicious osseous lesion. Partially imaged are degenerative changes in the lower lumbar spine. Extensive atherosclerotic changes are noted. [employer] Phone: Anupam, pn Incoming Radiant Results From [facility] - 06/11/2021 9:34 AM EDT PELVIS AND LEFT HIP RADIOGRAPH 06/11/2021 COMPARISON: None. ADDITIONAL HISTORY: Left hip pain. TECHNIQUE: Frontal views of the pelvis were obtained along with frontal and frog-leg lateral views of the left hip. FINDINGS: Mild to moderate superolateral joint space narrowing is noted in both hips along with mild degenerative spurring in both acetabula and at the margins of the femoral heads. No fracture or dislocation is identified. No suspicious osseous lesion. Partially imaged are degenerative changes in the lower lumbar spine. Extensive atherosclerotic changes are noted. IMPRESSION: 1. Mild to moderate degenerative changes are noted in both hips. 2. No fracture or dislocation is identified. 3. Atherosclerosis. [employer] Phone: [employer] Phone: XR CERVICAL SPINE (4-5 VIEWS )Ordered By: Merissa Donald on 06-09-2021 Degenerative changes with intact fusion lower cervical spine. [employer] Phone: EXAM: XR CERVICAL SPINE (4-5 VIEWS) HISTORY: Reason for exam:->paresthesia of both hands. 85-year-old female neck and back pain. COMPARISON: None. TECHNIQUE: Cervical spine 5 views, 8 images. FINDINGS: Anterior interbody fusion C5-C6 and C6-C7. Reversal of normal cervical lordosis. Moderate degenerative change at C4-C5. Moderate diffuse facet degenerative changes. Mild foraminal narrowing likely present at multiple levels bilaterally but not unusual for age. Lung apices clear. Odontoid normal. [employer] Phone: Anupam, pn Incoming Radiant Results From [facility] - 06/09/2021 11:40 AM EDT EXAM: XR CERVICAL SPINE (4-5 VIEWS) HISTORY: Reason for exam:->paresthesia of both hands. 85-year-old female neck and back pain. COMPARISON: None. TECHNIQUE: Cervical spine 5 views, 8 images. FINDINGS: Anterior interbody fusion C5-C6 and C6-C7. Reversal of normal cervical lordosis. Moderate degenerative change at C4-C5. Moderate diffuse facet degenerative changes. Mild foraminal narrowing likely present at multiple levels bilaterally but not unusual for age. Lung apices clear. Odontoid normal. IMPRESSION: Degenerative changes with intact fusion lower cervical spine. [employer]ing Services Phone: Consulting Services Phone: CT HEAD WO CONTRASTon 2020 Right supraorbital scalp hematoma. No skull fracture or intracranial hemorrhage. [employer] Phone: EXAMINATION: CT HEAD WO CONTRAST HISTORY: Reason for exam:->head injury COMPARISON: None. TECHNIQUE: CT examination of the head without IV contrast. Dose reduction techniques were achieved by using automated exposure control and/or adjustment of mA and/or kV according to patient size and/or use of iterative reconstruction technique. FINDINGS: 4.7 cm right supraorbital scalp hematoma. No intracranial hemorrhage. Mild symmetric atrophy. Bone windows show no fracture. Multiplanar reconstructions otherwise negative. [employer] Phone: Anupam, [facility] Incoming Radiant Results From [facility] - 03/08/2021 12:50 PM EDT EXAMINATION: CT HEAD WO CONTRAST HISTORY: Reason for exam:->head injury COMPARISON: None. TECHNIQUE: CT examination of the head without IV contrast. Dose reduction techniques were achieved by using automated exposure control and/or adjustment of mA and/or kV according to patient size and/or use of iterative reconstruction technique. FINDINGS: 4.7 cm right supraorbital scalp hematoma. No intracranial hemorrhage. Mild symmetric atrophy. Bone windows show no fracture. Multiplanar reconstructions otherwise negative. IMPRESSION: Right supraorbital scalp hematoma. No skull fracture or intracranial hemorrhage. [employer] Phone: MRI lumbar spine without con traston 02-03-2021 Significant severe spinal canal stenosis at L3-L4, L4-L5 and L5-S1 caused by discogenic disease and facet arthropathy as detailed above. [employer] Phone: LUMBAR MRI HISTORY: Low back pain x6 months with left foot coldness. TECHNIQUE: Multiplanar and multisequence imaging of the lumbar spine without contrast. FINDINGS: There is severe spinal canal stenosis at L3-L4, L4-L5 and L5-S1 due to a combination of large circumferential diffuse disc bulging and facet arthropathy with ligamentum flavum thickening at each of these levels. Thecal sac is severely narrowed at each of these levels. Severe bilateral lateral recess stenosis seen. Moderate foraminal stenosis at L3-L4 including moderate to advanced bilateral foraminal stenosis at L4-L5 and L5-S1 noted. L2-L3: Diffuse disc bulging causing mild bilateral foraminal encroachment without spinal canal stenosis. Facet arthropathy seen. L1-L2: Mild disc desiccation without spinal canal or foraminal stenosis. No acute fracture or neoplastic change. Small superior Schmorl node deformity at L1. Distal cord appears unremarkable. [employer] Phone: Anupam, [facility] Incoming Radiant Results From [employer] - 02/03/2021 1:21 PM EST LUMBAR MRI HISTORY: Low back pain x6 months with left foot coldness. TECHNIQUE: Multiplanar and multisequence imaging of the lumbar spine without contrast. FINDINGS: There is severe spinal canal stenosis at L3-L4, L4-L5 and L5-S1 due to a combination of large circumferential diffuse disc bulging and facet arthropathy with ligamentum flavum thickening at each of these levels. Thecal sac is severely narrowed at each of these levels. Severe bilateral lateral recess stenosis seen. Moderate foraminal stenosis at L3-L4 including moderate to advanced bilateral foraminal stenosis at L4-L5 and L5-S1 noted. L2-L3: Diffuse disc bulging causing mild bilateral foraminal encroachment without spinal canal stenosis. Facet arthropathy seen. L1-L2: Mild disc desiccation without spinal canal or foraminal stenosis. No acute fracture or neoplastic change. Small superior Schmorl node deformity at L1. Distal cord appears unremarkable. IMPRESSION: Significant severe spinal canal stenosis at L3-L4, L4-L5 and L5-S1 caused by discogenic disease and facet arthropathy as detailed above. [facility] [employer] Work Phone: XR KNEE RIGHT (MIN 4 VIEWS)o n 10-06-2020 Severe osteoarthritic changes right knee. Moderate degenerative change left knee. [place], [place] EXAM: XR KNEE RIGHT (MIN 4 VIEWS) HISTORY: M17.11 84-year-old female right knee pain, chronic, worsening. COMPARISON: None. TECHNIQUE: Right knee series includes standing views both knees AP lateral and sunrise right knee FINDINGS: There is varus angulation of the right knee due to marked medial compartment joint space narrowing. Mild patellofemoral osteoarthritic spurring of the patella lateral view right knee without joint effusion. Moderate degenerative change in the lateral joint compartment. Moderate medial and lateral compartment narrowing on the standing view the left knee, not as severe as on the right. [place], [place] Anupam, [facility] Incoming Radiant Results From [employer] - 10/06/2020 6:40 PM EST EXAM: XR KNEE RIGHT (MIN 4 VIEWS) HISTORY: M17.11 84-year-old female right knee pain, chronic, worsening. COMPARISON: None. TECHNIQUE: Right knee series includes standing views both knees AP lateral and sunrise right knee FINDINGS: There is varus angulation of the right knee due to marked medial compartment joint space narrowing. Mild patellofemoral osteoarthritic spurring of the patella lateral view right knee without joint effusion. Moderate degenerative change in the lateral joint compartment. Moderate medial and lateral compartment narrowing on the standing view the left knee, not as severe as on the right. IMPRESSION: Severe osteoarthritic changes right knee. Moderate degenerative change left knee. [place], [place] CBC Auto Differentialon 08-26 Basophils (Bld) [#/Vol] 0.00 10*3/uL [place] Basophils/100 WBC (Bld) 0 % 0 - 2 % [place] Differential Type YES [facility] [place] Eosinophils (Bld) [#/Vol] 0.30 10*3/uL [place] Eosinophils/100 WBC (Bld) 3 % 0 - 5 % [place] Erythrocyte distribution width (RBC) [Ratio] 13.9 % 12.1 - 15.2 % [place] Hematocrit (Bld) [Volume fraction] 40.0 % 36 - 46 % [place] Hemoglobin (Bld) [Mass/Vol] 13.5 g/dL 12 - 16 g/dL [place] Lymphocytes (Bld) [#/Vol] 2.60 10*3/uL [place] Lymphocytes/100 WBC (Bld) 32 % 15 - 40 % [place] MCH (RBC) [Entitic mass] 31.4 pg 26 - 34 pg [place] MCHC (RBC) [Mass/Vol] 33.7 g/dL 31 - 37 g/dL [place] MCV (RBC) [Entitic vol] 93.1 fL 80 - 100 fL [place] Monocytes (Bld) [#/Vol] 0.50 10*3/uL [place] Monocytes/100 WBC (Bld) 7 % 4 - 8 % [place] Platelet mean volume (Bld) [Entitic vol] NOT REPORTED 6 - 12 fL [place] Platelets (Bld) [#/Vol] 266 10*3/uL [place] Platelets (Bld) [#/Vol] NOT REPORTED [place] RBC (Bld) [#/Vol] 4.29 10*6/uL 4 - 5.2 m/uL [place], [place] RBC morphology finding Nom (Bld) NOT REPORTED [place] Segmented neutrophils/100 WBC (Bld) 58 % 47 - 75 % [place] Segs Absolute 4.70 [place] WBC (Bld) [#/Vol] 8.2 10*3/uL [place] WBC (Bld) [#/Vol] NOT REPORTED per 100 WBC [place] WBC Morphology NOT REPORTED [place], [place] Comprehensive Metabolic Pane salima 09-13-2020 Albumin [Mass/Vol] 4.3 g/dL 3.5 - 5.2 g/dL [place] Albumin/Globulin [Mass ratio] NOT REPORTED [place] ALP [Catalytic activity/Vol] 99 U/L 35 - 104 U/L [place] ALT [Catalytic activity/Vol] 22 U/L 5 - 33 U/L [place] Anion gap [Moles/Vol] 11 mmol/L 9 - 17 mmol/L [place] AST [Catalytic activity/Vol] 22 U/L <32 [place] Bilirubin Ql (U) 0.73 mg/dL 0.3 - 1.2 mg/dL [place] Bun/Cre Ratio 25 High [place], [place] Calcium [Mass/Vol] 9.7 mg/dL 8.6 - 10. 4 mg/dL [place] Chloride [Moles/Vol] 103 mmol/L 98 - 10 7 mmol/L [place] CO2 [Moles/Vol] 26 mmol/L 20 - 31 mmol/L [place] Creatinine [Mass/Vol] 0.77 mg/dL 0.5 - 0.9 mg/dL [place] GFR >60 >60 mL/min [place] GFR Non- >60 >60 mL/min [place] GFR/1.73 sq M predicted among non-blacks MDRD (S/P/Bld) [Vol rate/Area] NOT REPORTED [place] GFR/1.73 sq M predicted among non-blacks MDRD (S/P/Bld) [Vol rate/Area] [place] Comment on above: Average GFR for 70 o r more years old: 75 mL/min/1.73sq m Chronic Kidney Disease: <60 mL/min/1.73sq m Kidney failure: <15 mL/min/1.73sq m eGFR calculated using average adult body mass. Additional eGFR calculator available at: http://www.besomebody..[employer]/multiple_crcl_2011.htm Glucose [Mass/Vol] 139 mg/dL High 70 - 99 mg/dL [place] Interpretation and review of laboratory results Abnormal [place] Potassium [Moles/Vol] 4.1 mmol/L 3.7 - 5.3 mmol/L [place] Protein [Mass/Vol] 7.7 g/dL 6.4 - 8.3 g/dL [place] Sodium [Moles/Vol] 140 mmol/L 135 - 144 mmol/L [place] Urea nitrogen [Mass/Vol] 19 mg/dL 8 - 23 mg/dL [place] Lipid Panelon 09-13-2020 Cholesterol [Mass/Vol] 150 mg/dL <200 [place] Comment on above: Cholesterol Guidelines: <200 Desirable 200-240 Borderline >240 Undesirable Cholesterol in HDL [Mass/Vol] 49 mg/dL >40 [place] Comment on above: HDL Guidelines: <40 Undesirable 40-59 Borderline >59 Desirable Cholesterol in LDL [Mass/Vol] 67 mg/dL 0 - 130 mg/dL [place] Comment on above: LDL Guidelines: <100 Desirable 100-129 Near to/above Desirable 130-159 Borderline >159 Undesirable Direct (measured) LDL and calculated LDL are not interchangeable tests. Cholesterol in VLDL [Mass/Vol] NOT REPORTED High 1 - 30 mg/dL [place] Cholesterol.total/Chol esterol in HDL [Mass ratio] 3.1 {ratio} <5 [place] Interpretation and review of laboratory results Abnormal [place] Triglyceride [Mass/Vol] 171 mg/dL High <150 [place] Comment on above: Triglyceride Guidelines: <150 Desirable 150-199 Borderline 200-499 High >499 Very high Based on AHA Guidelines for fasting triglyceride, August 2012. Magnesiumon 09-13-2020 Magnesium [Mass/Vol] 1.9 mg/dL 1.6 - 2 .6 mg/dL [place] Otheron 09-13-2020 Immature granulocytes (Bld) [#/Vol] NOT REPORTED 0 % [place] Patient Fasting?on 0 Patient Fasting? YES [place] TSH with Reflexon 09-13-2020 TSH Qn 2.67 m[IU]/L [place], [place] Vitamin D 25 Hydroxyon 09-13 Vit D, 25-Hydroxy 34.7 ng/mL 30 - 100 ng/mL [place] Comment on above: Reference Range: Vitamin D status Range Deficiency <20 ng/mL Mild Deficiency 20-30 ng/mL Sufficiency 30-100 ng/mL Toxicity >100 ng/mL XR CHEST (2 VW)on 09-13-2020 Cardiomegaly, ASVD, pulmonary hyperinflation with the probable underlying COPD. [place] EXAM: XR CHEST (2 VW) HISTORY: Atrial fibrillation I48.91. CAD I25.10. Central hypertension I10. COMPARISON: None. TECHNIQUE: PA and lateral views FINDINGS: Cardiomegaly and ASVD are noted. Central vasculature appears satisfactory. Lung nixon are hyperinflated with flattened hemidiaphragms and mild lung base interstitial accentuation. Left suprahilar nodular scar is noted. Appearance suggests a degree of underlying COPD. No acute consolidation, edema, or effusion is seen. Dorsal demineralization and degenerative changes are present. Previous low cervical metallic plate fusion is noted. [place] Anupam, [facility] Incoming Radiant Results From [employer] - 09/13/2020 11:58 AM EDT EXAM: XR CHEST (2 VW) HISTORY: Atrial fibrillation I48.91. CAD I25.10. Central hypertension I10. COMPARISON: None. TECHNIQUE: PA and lateral views FINDINGS: Cardiomegaly and ASVD are noted. Central vasculature appears satisfactory. Lung nixon are hyperinflated with flattened hemidiaphragms and mild lung base interstitial accentuation. Left suprahilar nodular scar is noted. Appearance suggests a degree of underlying COPD. No acute consolidation, edema, or effusion is seen. Dorsal demineralization and degenerative changes are present. Previous low cervical metallic plate fusion is noted. IMPRESSION: Cardiomegaly, ASVD, pulmonary hyperinflation with the probable underlying COPD. [place] CBC Auto Differentialon 12-0 Basophils (Bld) [#/Vol] 0.00 10*3/uL [place] Basophils/100 WBC (Bld) 0 % 0 - 2 % [place] Differential Type YES [facility] [place] Eosinophils (Bld) [#/Vol] 0.40 10*3/uL [place] Eosinophils/100 WBC (Bld) 6 % High 0 - 5 % [place] Erythrocyte distribution width (RBC) [Ratio] 13.7 % 12.1 - 15.2 % [place] Hematocrit (Bld) [Volume fraction] 39.4 % 36 - 46 % [place] Hemoglobin (Bld) [Mass/Vol] 13.4 g/dL 12 - 16 g/dL [place] Interpretation and review of laboratory results Abnormal [place] Lymphocytes (Bld) [#/Vol] 3.00 10*3/uL [place] Lymphocytes/100 WBC (Bld) 40 % 15 - 40 % [place] MCH (RBC) [Entitic mass] 32.3 pg 26 - 34 pg [place] MCHC (RBC) [Mass/Vol] 34.0 g/dL 31 - 37 g/dL [place] MCV (RBC) [Entitic vol] 95.0 fL 80 - 100 fL [place] Monocytes (Bld) [#/Vol] 0.60 10*3/uL [place] Monocytes/100 WBC (Bld) 8 % 4 - 8 % [place] Platelet mean volume (Bld) [Entitic vol] NOT REPORTED 6 - 12 fL [place] Platelets (Bld) [#/Vol] 243 10*3/uL [place] Platelets (Bld) [#/Vol] NOT REPORTED [place] RBC (Bld) [#/Vol] 4.15 10*6/uL 4 - 5.2 m/uL [place] RBC morphology finding Nom (Bld) NOT REPORTED [place] Segmented neutrophils/100 WBC (Bld) 46 % Low 47 - 75 % [place] Segs Absolute 3.60 [place] WBC (Bld) [#/Vol] NOT REPORTED per 100 WBC [place] WBC (Bld) [#/Vol] 7.7 10*3/uL [place] WBC Morphology NOT REPORTED [place] Comprehensive Metabolic Pane salima 10-27-2019 Albumin [Mass/Vol] 4.2 g/dL 3.5 - 5.2 g/dL [place] Albumin/Globulin [Mass ratio] NOT REPORTED [place] ALP [Catalytic activity/Vol] 107 U/L High 35 - 104 U/L [place] ALT [Catalytic activity/Vol] 21 U/L 5 - 33 U/L [place] Anion gap [Moles/Vol] 15 mmol/L 9 - 17 mmol/L [place] AST [Catalytic activity/Vol] 17 U/L <32 [place] Bilirubin Ql (U) 0.67 mg/dL 0.3 - 1.2 mg/dL [place] Bun/Cre Ratio 20 [place], [place] Calcium [Mass/Vol] 10.0 mg/dL 8.6 - 10. 4 mg/dL [place] Chloride [Moles/Vol] 104 mmol/L 98 - 10 7 mmol/L [place] CO2 [Moles/Vol] 23 mmol/L 20 - 31 mmol/L [place] Creatinine [Mass/Vol] 0.71 mg/dL 0.5 - 0.9 mg/dL [place] GFR >60 >60 mL/min [place] GFR Non- >60 >60 mL/min [place] GFR/1.73 sq M predicted among non-blacks MDRD (S/P/Bld) [Vol rate/Area] NOT REPORTED [place] GFR/1.73 sq M predicted among non-blacks MDRD (S/P/Bld) [Vol rate/Area] [place] Comment on above: Average GFR for 70 o r more years old: 75 mL/min/1.73sq m Chronic Kidney Disease: <60 mL/min/1.73sq m Kidney failure: <15 mL/min/1.73sq m eGFR calculated using average adult body mass. Additional eGFR calculator available at: http://www.[employer]/multiple_crcl_2012.htm Glucose [Mass/Vol] 136 mg/dL High 70 - 99 mg/dL [place] Interpretation and review of laboratory results Abnormal [place] Potassium [Moles/Vol] 3.6 mmol/L Low 3.7 - 5.3 mmol/L [place] Protein [Mass/Vol] 7.6 g/dL 6.4 - 8.3 g/dL [place] Sodium [Moles/Vol] 142 mmol/L 135 - 144 mmol/L [place] Urea nitrogen [Mass/Vol] 14 mg/dL 8 - 23 mg/dL [place] Lipid Panelon 10-27-2019 Cholesterol [Mass/Vol] 152 mg/dL <200 [place] Comment on above: Cholesterol Guidelines: <200 Desirable 200-240 Borderline >240 Undesirable Cholesterol in HDL [Mass/Vol] 59 mg/dL >40 [place] Comment on above: HDL Guidelines: <40 Undesirable 40-59 Borderline >59 Desirable Cholesterol in LDL [Mass/Vol] 70 mg/dL 0 - 130 mg/dL [place] Comment on above: LDL Guidelines: <100 Desirable 100-129 Near to/above Desirable 130-159 Borderline >159 Undesirable Direct (measured) LDL and calculated LDL are not interchangeable tests. Cholesterol in VLDL [Mass/Vol] NOT REPORTED 1 - 30 mg/dL [place] Cholesterol.total/Chol esterol in HDL [Mass ratio] 2.6 {ratio} <5 [place] Triglyceride [Mass/Vol] 114 mg/dL <150 [place] Comment on above: Triglyceride Guidelines: <150 Desirable 150-199 Borderline 200-499 High >499 Very high Based on AHA Guidelines for fasting triglyceride, August 2012. Magnesiumon 10-27-2019 Magnesium [Mass/Vol] 1.9 mg/dL 1.6 - 2 .6 mg/dL [place] Otheron 10-27-2019 Immature granulocytes (Bld) [#/Vol] NOT REPORTED [place] Patient Fasting?on 9 Patient Fasting? YES [facility] [place] TSH with Reflexon 10-27-2019 TSH Qn 2.50 m[IU]/L [facility] Vitamin D 25 Hydroxyon 10-27 Interpretation and review of laboratory results Abnormal [facility] Vit D, 25-Hydroxy 6.4 ng/mL Low 30 - 100 ng/mL [facility] Comment on above: Reference Range: Vitamin D status Range Deficiency <20 ng/mL Mild Deficiency 20-30 ng/mL Sufficiency 30-100 ng/mL Toxicity >100 ng/mL Vital Signs Date Time Vital Sign Value Performing Clinician Faci lity 12-26-2022 09:18-0500 Respiratory rate 18 /min Андрей Rodriguez MD Work Phone: [facility] [employer] [facility] [employer] 12-26-2022 07:32-0500 Body temperature 97.9 [degF] Андрей Rodriguez MD Work Phone: [facility] 12-26-2022 07:32-0500 Diastolic blood pressure 66 mm[Hg] Андрей Rodriguez MD Work Phone: [facility] [employer] 12-26-2022 07:32-0500 Heart rate 85 /min Андрей Rodriguez MD Work Phone: [facility] 12-26-2022 07:32-0500 SaO2% (BldA) [Mass fraction] 99 % Андрей Rodriguez MD Work Phone: [facility] [employer] 12-26-2022 07:32-0500 Systolic blood pressure 133 mm[Hg] Андрей Rodriguez MD Work Phone: [facility] [employer] 12-25-2022 01:15-0500 Body mass index (BMI) [Ratio] 40.96 kg/m2 Андрей Rodriguez MD Work Phone: [facility] [employer] 12-25-2022 01:15-0500 Body weight 115.12 kg Андрей Rodriguez MD Work Phone: [facility] [employer] 12-18-2022 07:27-0500 Body height 167.6 cm Андрей Rodriguez MD Work Phone: [facility] 12-15-2022 20:36-0500 Diastolic blood pressure 73 mm[Hg] [facility] 12-15-2022 20:36-0500 Mean blood pressure 89 mm[Hg] [facility] 12-15-2022 20:36-0500 Systolic blood pressure 122 mm[Hg] [facility] 12-15-2022 20:10-0500 Heart rate 80 /min [facility] 12-15-2022 20:10-0500 SaO2% (BldA) [Mass fraction] 98 % [facility] 12-15-2022 20:10-0500 Respiratory rate 18 /min [facility] 12-15-2022 20:09-0500 Body temperature 98.24 [degF] [facility] 12-15-2022 20:09-0500 Diastolic blood pressure 73 mm[Hg] [facility] 12-15-2022 20:09-0500 Mean blood pressure 90 mm[Hg] [facility] 12-15-2022 20:09-0500 Systolic blood pressure 122 mm[Hg] [facility] 12-15-2022 18:40-0500 Hourly Rounding [facility] 12-15-2022 18:40-0500 Promise to Return [facility] 12-15-2022 17:17-0500 Hourly Rounding [facility] 12-15-2022 17:17-0500 Promise to Return [facility] 12-15-2022 16:26-0500 Hourly Rounding [facility] 12-15-2022 16:26-0500 Promise to Return [facility] 12-15-2022 15:34-0500 Heart rate 67 /min [facility] 12-15-2022 15:34-0500 SaO2% (BldA) [Mass fraction] 95 % [facility] 12-15-2022 15:34-0500 Body temperature 97.52 [degF] [facility] 12-15-2022 15:33-0500 Diastolic blood pressure 77 mm[Hg] [facility] 12-15-2022 15:33-0500 Mean blood pressure 89 mm[Hg] [facility] 12-15-2022 15:33-0500 Systolic blood pressure 112 mm[Hg] [facility] 12-15-2022 11:45-0500 Heart rate 66 /min [facility] 12-15-2022 11:45-0500 SaO2% (BldA) [Mass fraction] 97 % [facility] 12-15-2022 11:44-0500 Body temperature 98.06 [degF] [facility] 12-15-2022 11:44-0500 Mean blood pressure 83 mm[Hg] [facility] 12-15-2022 08:59-0500 Heart rate 74 /min [facility] 12-15-2022 00:27-0500 Blood Pressure Location [facility] 12-15-2022 00:27-0500 Respiratory rate 16 /min [facility] 12-14-2022 20:22-0500 gluc 159 mg/dL [facility] 12-14-2022 16:27-0500 gluc 128 mg/dL [facility] 12-14-2022 16:00-0500 Body temperature 97.7 [degF] [facility] 12-14-2022 11:50-0500 gluc 109 mg/dL [facility] 12-14-2022 08:44-0500 Heart rate 66 /min [facility] 12-14-2022 00:55-0500 Blood Pressure Location [facility] 12-14-2022 00:55-0500 Mean blood pressure 89 mm[Hg] [facility] 12-14-2022 00:55-0500 Respiratory rate 18 /min [facility] 12-13-2022 09:51-0500 Heart rate 70 /min [facility] 12-13-2022 09:00-0500 Body temperature 98.06 [degF] [facility] 12-13-2022 09:00-0500 Heart rate 64 /min [facility] 12-13-2022 04:24-0500 Blood Pressure Location [facility] 12-13-2022 01:36-0500 Mean blood pressure 85 mm[Hg] [facility] 12-13-2022 00:00-0500 Body temperature 97.34 [degF] [facility] 12-13-2022 00:00-0500 Heart rate 67 /min [facility] 12-12-2022 22:07-0500 Respiratory rate 25 /min [facility] 12-12-2022 21:00-0500 Respiratory rate 30 /min [facility] 12-12-2022 20:04-0500 Respiratory rate 27 /min [facility] 12-12-2022 19:02-0500 Heart rate 69 /min [facility] 12-07-2022 18:33-0500 Body height 167.6 cm Lakia Reza DO Work Phone: [facility] 12-07-2022 18:33-0500 Body mass index (BMI) [Ratio] 43.58 kg/m2 Lakia Reza DO Work Phone: [employer] 12-07-2022 18:33-0500 Body temperature 98.01 [degF] Lakia Reza DO Work Phone: [employer] 12-07-2022 18:33-0500 Body weight 122.47 kg Lakia Reza DO Work Phone: [employer] 12-07-2022 18:33-0500 Diastolic blood pressure 84 mm[Hg] Lakia Reza DO Work Phone: [employer] 12-07-2022 18:33-0500 Heart rate 79 /min Lakia Reza DO Work Phone: [employer] 12-07-2022 18:33-0500 Respiratory rate 20 /min Lakia Reza DO Work Phone: [employer] 12-07-2022 18:33-0500 SaO2% (BldA) [Mass fraction] 94 % Lakia Reza DO Work Phone: [employer] 12-07-2022 18:33-0500 Systolic blood pressure 162 mm[Hg] Lakia Reza DO Work Phone: [employer] 06-30-2022 08:17-0400 Blood Pressure Location Efrain ESPARZA [facility] 06-30-2022 08:17-0400 Body temperature 98.06 [degF] Efrain ESPARZA [facility] 06-30-2022 08:17-0400 Diastolic blood pressure 82 mm[Hg] Efrain ESPARZA [facility] 06-30-2022 08:17-0400 Heart rate 61 /min Efrain ESPARZA [facility] 06-30-2022 08:17-0400 SaO2% (BldA) [Mass fraction] 97 % Efrain ESPARZA [facility] 06-30-2022 08:17-0400 Systolic blood pressure 138 mm[Hg] Efrain ESPARZA [facility] 10-02-2021 00:45-0400 Diastolic blood pressure 112 mm[Hg] Michael Gutierrez MD Work Phone: [facility] [employer] 10-02-2021 00:45-0400 SaO2% (BldA) [Mass fraction] 97 % Michael Gutierrez MD Work Phone: [email or web address] 10-02-2021 00:45-0400 Systolic blood pressure 132 mm[Hg] Michael Gutierrez MD Work Phone: [email or web address] 10-02-2021 00:13-0400 Body mass index (BMI) [Ratio] 41.16 kg/m2 Michael Gutierrez MD Work Phone: [employer] 10-02-2021 00:13-0400 Body temperature 97.3 [degF] Michael Gutierrez MD Work Phone: [employer] 10-02-2021 00:13-0400 Body weight 115.67 kg Michael Gutierrez MD Work Phone: [employer] 10-02-2021 00:13-0400 Heart rate 71 /min Michael Gutierrez MD Work Phone: [employer] 10-02-2021 00:13-0400 Respiratory rate 16 /min Michael Gutierrez MD Work Phone: [employer] 06-11-2021 08:35-0400 Body mass index (BMI) [Ratio] 40.35 kg/m2 Xena Andrews MD Work Phone: [employer] Work Phone: 06-11-2021 08:35-0400 Body temperature 98.6 [degF] Xena Andrews MD Work Phone: [employer] Work Phone: 06-11-2021 08:35-0400 Body weight 113.4 kg Xena Andrews MD Work Phone: [employer] Work Phone: 06-11-2021 08:35-0400 Diastolic blood pressure 63 mm[Hg] Xena Andrews MD Work Phone: [employer] Work Phone: 06-11-2021 08:35-0400 Heart rate 66 /min Xena Andrews MD Work Phone: [employer] Work Phone: 06-11-2021 08:35-0400 Respiratory rate 18 /min Xena Andrews MD Work Phone: [employer] Work Phone: 06-11-2021 08:35-0400 SaO2% (BldA) [Mass fraction] 95 % Xena Andrews MD Work Phone: [employer] Work Phone: 06-11-2021 08:35-0400 Systolic blood pressure 164 mm[Hg] Xena Andrews MD Work Phone: [email or web address] Work Phone: 03-08-2021 11:43-0400 BMI (Body Mass Index) 40.35 kg/m2 [facility] [employer] [facility] Work Phone: 03-08-2021 11:43-0400 Body Temperature 98.29 [degF] [facility] [employer] [facility] Work Phone: 03-08-2021 11:43-0400 Body weight 113.4 kg [facility] [employer] [facility] Work Phone: 03-08-2021 11:43-0400 BP Diastolic 74 mm[Hg] [employer] Work Phone: 03-08-2021 11:43-0400 BP Systolic 164 mm[Hg] [employer] Work Phone: 03-08-2021 11:43-0400 Height 167.6 cm [employer] Phone: 03-08-2021 11:43-0400 Pulse (Heart Rate) 83 /min [employer] Work Phone: 03-08-2021 11:43-0400 Pulse Oximetry 95 % [employer] Phone: 03-08-2021 11:43-0400 Respiratory Rate 20 /min [employer] Phone: Encounters Encounter Date Encounter Type Care Provider Facility Start: 12-03-2023 End: 12-06-2023 ambulatory [facility] Start: 09-06-2023 End: 09-09-2023 ambulatory [facility] Start: 03-05-2023 End: 03-05-[address] AQUILINO MEYER Facility:[facility] Start: 02-28-2023 End: 02-28-[address] AQUILINO MEYER Facility:[facility] Start: 02-23-2023 End: 02-23-2023 ambulatory BEN LUCAS Facility:[facility] Start: 01-29-2023 End: 01-29-[address] AQUILINO MEYER Facility:[facility] Start: 01-26-2023 End: 01-26-2023 ambulatory DIMITRIOS Fenton Facility:[facility] Start: 01-15-2023 ambulatory Efrain ESPARZA Facility: [facility] Start: 12-16-2022 End: 12-26-2022 Evaluation and management of inpatient [facility] Start: 12-16-2022 End: 12-26-2022 Evaluation and management of inpatient Андрей Rodriguez MD Work Phone: [facility] SUR[facility] TELEMETRY Comment on above: Closed fracture of r ight ankle, initial encounter (Primary Dx) Start: 12-12-2022 End: 12-16-2022 ambulatory Candy FLEMING Facility:[facility] Start: 12-12-2022 End: 12-15-2022 Observation David [facility] Start: 12-07-2022 End: 12-07-2022 Emergency department patient visit [facility] Start: 12-07-2022 End: 12-07-2022 Emergency department patient visit [facility] Work Phone: [facility] Comment on above: Closed fracture of d istal end of right fibula, unspecified fracture morphology, initial encounter (Primary Dx) Start: 09-28-2022 End: 09-28-2022 Patient encounter procedure Efrain ESPARZA [facility] Start: 08-08-2022 End: 08-10-2022 Subsequent hospital visit by physician [facility] Echo Room 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; Hyperlipidemia, unspecified hyperlipidemia type; Ischemic cardiomyopathy; Vitamin D deficiency disease; Mitral valve insufficiency, unspecified etiology Start: 07-25-2022 End: 07-25-2022 Patient encounter procedure MERISSA DONALD [facility] Start: 06-30-2022 End: 06-30-2022 Patient encounter procedure Efrain ESPARZA [facility] Start: 06-19-2022 End: 06-19-2022 Patient encounter procedure Efrain ESPARZA [facility] Start: 05-22-2022 End: 08-20-2022 Recurring [facility] Start: 05-03-2022 End: 05-05-2022 Subsequent hospital visit by physician Ian Additional Xray At [facility] Radiology Comment on above: Pain in both wrists Start: 05-03-2022 End: 05-03-2022 Patient encounter procedure Efrain ESPARZA [facility] Start: 05-03-2022 End: 05-05-2022 Subsequent hospital visit by physician Efrain Esparza MD Work Phone: [facility] Start: 11-07-2021 End: 11-07-2021 Subsequent hospital visit by physician Berkley Garza [facility] Physical Therapy Comment on above: Arrived Start: 10-02-2021 End: 10-02-2021 Emergency department patient visit Michael Gutierrez MD Work Phone: [facility] Comment on above: Contusion of ribs, r ight, initial encounter (Primary Dx); Contusion of thoracic spine; Contusion of lower back, initial encounter Start: 09-12-2021 End: 09-14-2021 Subsequent hospital visit by physician Cesar Echo Room 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; Essential hypertension; Hyperlipidemia, unspecified hyperlipidemia type; Ischemic cardiomyopathy; Vitamin D deficiency disease Start: 06-15-2021 End: 06-17-2021 Subsequent hospital visit by physician Efrain Esparza MD Work Phone: [facility] Start: 06-13-2021 End: 06-15-2021 Subsequent hospital visit by physician Cesar [facility] Comment on above: Pain of left calf Start: 06-11-2021 End: 06-11-2021 Emergency department patient visit Xena Andrews MD Work Phone: [facility] ED Comment on above: Pain in left hip (Pr imary Dx); Pain of left calf; Essential hypertension; Osteoarthritis of left hip, unspecified osteoarthritis type Start: 06-09-2021 End: 06-11-2021 Subsequent hospital visit by physician Cesar Additional Xray At [facility] Radiology Comment on above: Paresthesia Start: 03-08-2021 End: 03-08-2021 Emergency department patient visit King Frazier Work Phone: [facility] ED Comment on above: Injury of head, init ial encounter (Primary Dx) Start: 02-08-2021 End: 05-15-2022 Recurring HOLLY FARFAN [facility] Start: 02-02-2021 End: 02-04-2021 Subsequent hospital visit by physician Ian Mri [facility] MRI Comment on above: Left leg weakness; Lumbosacral radiculopathy; Has numbness Start: 10-06-2020 End: 10-08-2020 Subsequent hospital visit by physician Cesar Additional Xray At [facility] Radiology Comment on above: Primary osteoarthrit is of right knee Start: 10-06-2020 End: 10-08-2020 Subsequent [facility] Start: 09-24-2020 End: 09-26-2020 Subsequent hospital visit by physician Cesar [facility] Lab Comment on above: Bruit Start: 09-13-2020 End: 09-15-2020 Subsequent hospital visit by physician Cesar Echo Room 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; Essential hypertension; Hyperlipidemia, unspecified hyperlipidemia type; Vitamin D deficiency disease Start: 10-27-2019 End: 10-27-2019 Subsequent hospital visit by physician Efrain OJEDA Laboratory Comment on above: Chronic systolic con gestive heart failure (HCC); Dyslipidemia; Vitamin D deficiency disease; Hypertension, unspecified type Procedures Date Procedure Procedure Detail Performing Clinician Start: 12-26-2022 End: 12-26-2022 Rhythm ecg 1-3 leads w/interpretation & report Unknown Provider Result Start: 12-25-2022 End: 12-26-2022 Rhythm ecg 1-3 leads w/interpretation & report Unknown Provider Result Start: 12-24-2022 Rhythm ecg 1-3 leads w/interpretation & report Unknown Provider Result Start: 12-24-2022 End: 12-25-2022 Rhythm ecg 1-3 leads w/interpretation & report Unknown Provider Result Start: 12-23-2022 End: 12-24-2022 Rhythm ecg 1-3 leads w/interpretation & report Unknown Provider Result Start: 12-22-2022 Basic metabolic pane l calcium total Nicholas Rowan MD Work Phone: Start: 12-22-2022 End: 12-23-2022 Rhythm ecg 1-3 leads w/interpretation & report Unknown Provider Result Start: 12-22-2022 Rhythm ecg 1-3 leads w/interpretation & report Unknown Provider Result Start: 12-21-2022 Assay of troponin quantitative Nicholas Rowan MD Work Phone: Start: 12-21-2022 Assay of troponin quantitative Nicholas Rowan MD Work Phone: Start: 12-21-2022 Urnls dip stick/tabl et rgnt auto w/o microscopy Nicholas Rowan MD Work Phone: Start: 12-21-2022 Rhythm ecg 1-3 leads w/interpretation & report Unknown Provider Result Start: 12-21-2022 Rhythm ecg 1-3 leads w/interpretation & report Unknown Provider Result Start: 12-21-2022 Basic metabolic pane l calcium total Nicholas Rowan MD Work Phone: Start: 12-21-2022 End: 12-21-2022 Ecg routine ecg w/least 12 lds i&r only Nicholas Rowan MD Work Phone: Start: 12-17-2022 Basic metabolic pane l calcium total Андрей Rodriguez MD Work Phone: Start: 12-07-2022 Radex ankle complete minimum 3 views Lakia Reza DO Work Phone: Start: 08-08-2022 Comprehensive metabo lic panel Emiliano Deng MD Work Phone: Start: 08-08-2022 Lipid panel Emiliano miller MD Work Phone: Start: 08-08-2022 PATIENT FASTING? Emiliano Deng MD Work Phone: Start: 08-08-2022 Radiologic exam ches t 2 views Emiliano Deng MD Work Phone: Start: 05-03-2022 End: 05-03-2022 Radex wrist complete minimum 3 views Richie Hagen Salazar DO Work Phone: Start: 11-23-2021 Injection of hip usi ng fluoroscopic guidance Efrain ESPARZA Comment on above: Left hip injection-1 00% relief Start: 10-02-2021 End: 10-02-2021 Radex spine thoracic 3 views Michael Gutierrez MD Work Phone: Start: 09-12-2021 Ecg routine ecg w/le ast 12 lds w/i&r Emiliano Deng MD Work Phone: Start: 09-12-2021 Comprehensive metabo lic panel Emiliano Deng MD Work Phone: Start: 09-12-2021 Lipid panel Emiliano miller MD Work Phone: Start: 09-12-2021 PATIENT FASTING? Emiliano Deng MD Work Phone: Start: 09-12-2021 Radiologic exam ches t 2 views Emiliano Deng MD Work Phone: Start: 08-08-2021 Injection of hip usi ng fluoroscopic guidance Efrain ESPARZA Comment on above: left hip-90% relief Start: 06-13-2021 Dup-scan xtr veins unilateral/limited study Xena Andrews MD Work Phone: Start: 06-11-2021 Radex hip unilateral with pelvis 2-3 views Xena Andrews MD Work Phone: Start: 06-09-2021 Radex spine cervical 4 or 5 views Merissa AJ Work Phone: Start: 03-08-2021 Ct head/brain w/o co ntrast material Veselin Freddie Work Phone: Start: 02-02-2021 Mri spinal canal lum bar w/o contrast material Gaston Parekh Work Phone: Start: 10-06-2020 Radiologic exam knee complete 4/more views Richie Salazar Other Phone: Start: 09-13-2020 Radiologic exam ches t 2 views Emiliano Deng Work Phone: Start: 09-13-2020 25 hydroxy includes fractions if performed Emiliano Deng Work Phone: Start: 09-13-2020 Assay of magnesium Emiliano Deng Work Phone: Start: 09-13-2020 Assay of thyroid stimulating hormone tsh Emiliano Deng Work Phone: Start: 09-13-2020 Blood count complete auto&auto difrntl wbc Emiliano Deng Work Phone: Start: 09-13-2020 Comprehensive metabo lic panel Emiliano Deng Work Phone: Start: 09-13-2020 Lipid panel Emiliano miller Work Phone: Start: 09-13-2020 PATIENT FASTING? Emiliano Deng Work Phone: Start: 10-27-2019 25 hydroxy includes fractions if performed Emiliano Deng Work Phone: Start: 10-27-2019 Assay of magnesium Emiliano Deng Work Phone: Start: 10-27-2019 Assay of thyroid stimulating hormone tsh Emiliano Deng Work Phone: Start: 10-27-2019 Blood count complete auto&auto difrntl wbc Emiliano Deng Work Phone: Start: 10-27-2019 Comprehensive metabo lic panel Emiliano Deng Work Phone: Start: 10-27-2019 Lipid panel Emiliano miller Work Phone: Start: 10-27-2019 PATIENT FASTING? Emiliano Deng Work Phone: Start: 11-06-2016 Injection of facet j oint using fluoroscopic guidance Efrain ESPARZA Comment on above: C3-C6--90% relief fo r first day. Start: 03-08-2015 right cataract extra ction with intraocular lens placement Efrain ESPARZA Start: 01-18-2015 left cataract extrac tion with intraocular lens placement Efrain ESPARZA Start: 11-26-2005 neck surgery 4 Efrain MATT Comment on above: 4-5-6 Ligation of fallopian tube J ohn ISAIAS Plan of Treatment Date Care Activity Detail Author Start: 08-27-2030 DTaP/Tdap/Td vaccine (2 - Td or Tdap) DTaP/Tdap/Td vaccine (2 - Td or Tdap) Start: 08-27-2030 DTaP/Tdap/Td vaccine (2 - Td) DTaP/Tdap/Td vaccine (2 - Td) [facility] [employer] Work Phone: Start: 09-13-2023 End: 09-13-2023 Patient encounter procedure 09/13/2023 Office Visit Cardiology Emiliano Deng MD [address] [place] [address] [facility] [employer] Start: 08-08-2023 Lipid panel Lipids [facility] Le[facility] Start: 09-14-2022 End: 09-14-2022 Patient encounter procedure 09/14/2022 Office Visit Cardiology Emiliano Deng MD [address] [place] [address] [facility] [employer] Start: 09-12-2022 Creatinine measurement Creatinine mo [facility] Start: 09-12-2022 Lipid panel [facility] Start: 09-12-2022 Potassium monitoring Potassium monit [facility] Start: 07-27-2022 Influenza vaccination Flu vaccine (# 1) [facility] Start: 12-22-2021 COVID-19 Vaccine (4 - Booster for Pfizer series) COVID-19 Vaccine (4 - Booster for Pfizer series) [facility] Start: 11-17-2021 End: 11-17-2021 Patient encounter procedure 11/17/2021 Appointment Physical Therapy Shanita Henry, PT [facility] Start: 11-15-2021 End: 11-15-2021 Patient encounter procedure 11/15/2021 Appointment Physical Therapy Shanita Henry, PT [facility] Start: 11-10-2021 End: 11-10-2021 Patient encounter procedure 11/10/2021 Appointment Physical Therapy Shanita Henry, PT [facility] Start: 09-19-2021 End: 09-19-2021 Office Visit 09/19/2021 Office Visit Cardiology Emiliano Deng MD [address] [place] [address] [phone] [facility] [employer] Start: 09-13-2021 Creatinine measurement Creatinine mo [place], [place] Start: 09-13-2021 Lipid panel Lipid screen [place], [place] Start: 09-13-2021 Potassium monitoring Potassium monit [place], [place] Start: 07-27-2021 Influenza vaccination Flu vaccine (# 1) [facility] [employer] Phone: Start: 06-13-2021 End: 07-12-2021 VL DUP LOWER EXTREMITY VENOUS LEFT VL DUP LOWER EXTREMITY VENOUS LEFT Imaging Routine Pain of left calf Expected: 06/13/2021, Expires: 07/12/2021 Work Phone: Comment on above: Expected: 06/13/2021 , Expires: 07/12/2021 Start: 10-27-2020 Creatinine measurement Creatinine mo nitoring [place], [place] Start: 10-27-2020 Lipid panel Lipid screen [place], [place] Start: 10-27-2020 Potassium monitoring Potassium monit [place], [place] Start: 10-22-2020 Shingles Vaccine (2 of 2) Shingles Vaccine (2 of 2) Start: 09-20-2020 End: 09-20-2020 Office Visit 09/20/2020 Office Visit Cardiology Emiliano Deng MD [address] [place] [address] [facility] [employer] Start: 07-27-2020 Influenza vaccination Flu vaccine (# 1) [place], [place] Start: 06-27-2020 Creatinine monitoring Creatinine mon itoring [place], [place] Start: 06-27-2020 Lipid screen Lipid screen [place], [place] Start: 06-27-2020 Potassium monitoring Potassium monit [place] Start: 11-04-2019 End: 11-04-2019 Office Visit 11/04/2019 Office Visit Cardiology Emiliano Deng MD [address] [place] [address] [facility] [employer] Start: 07-27-2019 Influenza vaccination Flu vaccine (# 1) [place] Start: 05-18-2019 Annual Wellness Visi t (AWV) Annual Wellness Visit (AWV) Start: 2002 DEXA (modify frequen cy per FRAX score) DEXA (modify frequency per FRAX score) [place], [place] Start: 2002 Pneumococcal 65+ yea rs Vaccine (1 of 1 - PPSV23) Pneumococcal 65+ years Vaccine (1 of 1 - PPSV23) [place], [place] Start: 2002 Pneumococcal 65+ yea rs Vaccine (2 of 2 - PPSV23) Pneumococcal 65+ years Vaccine (2 of 2 - PPSV23) [employer] Phone: Start: 1992 Screening for osteoporosis DEXA (modify frequency per FRAX score) [email or web address] Start: 1987 Shingles Vaccine (1 of 2) Shingles Vaccine (1 of 2) [place], [place] Start: 1956 DTaP/Tdap/Td vaccine (1 - Tdap) DTaP/Tdap/Td vaccine (1 - Tdap) [place], [place] Start: 1953 COVID-19 Vaccine (1 of 2) COVID-19 Vaccine (1 of 2) [employer] Phone: Start: 1953 COVID-19 Vaccine (1) COVID-19 Vaccin e (1) [employer] Phone: Start: 1949 COVID-19 Vaccine (1) COVID-19 Vaccin e (1) [employer] Services Phone: Start: 1949 Depression Screen Depression Screen [facility] [employer] Start: 1948 DTaP/Tdap/Td vaccine (1 - Tdap) DTaP/Tdap/Td vaccine (1 - Tdap) [place], [place] Start: 1937 Annual Wellness Visi t (AWV) Annual Wellness Visit (AWV) [facility] [employer] Dup-scan xtr veins complete bilateral study VASCULAR REPORT Imaging Ordered: 06/14/2021 [employer]ing [employer] Phone: Comment on above: Ordered: 06/14/2021 End: 09-13-2020 ECHO Complete 2D W Doppler W Color ECHO Complete 2D W Doppler W Color Echocardiography Routine Ischemic cardiomyopathy 1 Occurrences starting 09/13/2020 until 09/13/2020 [facility] [place] Comment on above: 1 Occurrences starti ng 09/13/2020 until 09/13/2020 End: 09-12-2021 ECHO Complete 2D W Doppler W Color ECHO Complete 2D W Doppler W Color Echocardiography Routine Mitral valve insufficiency, unspecified etiology 1 Occurrences starting 09/12/2021 until 09/12/2021 [employer] Phone: Comment on above: 1 Occurrences starti ng 09/12/2021 until 09/12/2021 End: 08-08-2022 ECHO Complete 2D W Doppler W Color ECHO Complete 2D W Doppler W Color Echocardiography Routine Aortic valve stenosis, etiology of cardiac valve disease unspecified 1 Occurrences starting 08/08/2022 until 08/08/2022 BLAKE CORTE[employer] Phone: Comment on above: 1 Occurrences starti ng 08/08/2022 until 08/08/2022 EKG 12 Lead [employer] [facility], [place] End: 09-24-2020 VL DUP CAROTID BILATERAL VL DUP CAROTID BILATERAL Imaging Routine Bruit 1 Occurrences starting 09/24/2020 until 09/24/2020 [facility] [place] [place] Comment on above: 1 Occurrences starti ng 09/24/2020 until 09/24/2020 VL DUP CAROTID BILATERAL VL DUP CAROTID BILATERAL Imaging Routine Bruit 09/24/2020 3:28 PM EDT [employer] [place], [place] End: 10-02-2021 XR RIBS RIGHT INCLUDE CHEST (MIN 3 VIEWS) XR RIBS RIGHT INCLUDE CHEST (MIN 3 VIEWS) Imaging Routine Once for 1 Occurrences starting 10/02/2021 until 10/02/2021 [employer] Phone: Comment on above: Once for 1 Occurrenc es starting 10/02/2021 until 10/02/2021 XR RIBS RIGHT INCLUD E CHEST (MIN 3 VIEWS) XR RIBS RIGHT INCLUDE CHEST (MIN 3 VIEWS) Imaging STAT 10/02/2021 1:29 AM EDT [employer] Phone: Immunizations Immunization Date Immunization Notes Care Provider Fa cili 09-14-2022 SARS-CoV-2 (COVID-19 ) [id number] [facility] 09-06-2022 influenza virus vacc ine, unspecified formulation [facility]-13-2021 influenza virus vacc ine, unspecified formulation Efrain ESPARZA [facility] Comment on above: Result Comment: Julissa Gonzalez 08-22-2021 SARS-CoV-2 (COVID-19 ) mRNA BNT-162b2 vax Efrain ESPARZA [facility] Comment on above: Result Comment: Julissa Gonzalez 01-21-2021 SARS-CoV-2 (COVID-19 ) mRNA BNT-162b2 vax Efrain ESPARZA [facility] Comment on above: Result Comment: Brittany Pinon 12-31-2020 SARS-CoV-2 (COVID-19 ) mRNA BNT-162b2 vax Efrain ESPARZA [facility] Comment on above: Result Comment: Brittany Pinon 08-27-2020 influenza virus vacc ine, unspecified formulation Efrain ESPARZA [facility] 08-27-2020 tetanus toxoid, redu desiree diphtheria toxoid, and acellular pertussis vaccine, adsorbed Efrain ESPARZA [facility] 08-27-2020 zoster vaccine recombinant Efrain ESPARZA [facility] 09-04-2019 influenza virus vacc ine, unspecified formulation Efrain ESPARZA [facility] 08-26-2019 influenza virus vacc ine, unspecified formulation Efrain ESPARZA [facility] 08-26-2018 influenza virus vacc ine, unspecified formulation Efrain ESPARZA [facility] 08-27-2017 influenza virus vacc ine, unspecified formulation Efrain ESPARZA [facility] 10-11-2016 pneumococcal polysaccharide vaccine, 23 valent Efrain ESPARZA [facility] 08-29-2016 influenza virus vacc ine, unspecified formulation Efrain ESPARZA [facility] 08-29-2016 pneumococcal conjuga te vaccine, 13 valent Efrain ESPARZA [facility] 08-28-2016 pneumococcal conjuga te vaccine, 13 valent Efrain ESPARZA [facility] 08-27-2013 influenza virus vacc ine, unspecified formulation Efrain ESPARZA [facility] 08-27-2013 pneumococcal polysaccharide vaccine, 23 valent Efrain ESPARZA [facility] Payers Date Payer Category Payer Unknown [place] P PO xxxxxxxxxxxx 2017-Present [address] [place] [address] xxxxxxxxxxxx [id number] 2014 Medicaid [id number] 2014 Medicare MEDICARE MEDICAR E PART A AND B xxxxxxxxxxx 2014-Present [phone] [address] [address] [place] [address] xxxxxxxxxxx [id number] 2014 Medicare [id number] 2014 Medicare [id number] 1959 Medicaid [id number] 1935 Unknown [id number] 1937 Unknown [id number] 1937 Unknown [id number] 1937 Unknown [id number] 1937 Unknown [id number] [id number] 1937 Unknown [id number] [id number] 1937 Unknown [id number] [id number] 1937 Unknown [id number] [id number] 1937 Unknown [id number] [id number] 1937 Unknown [id number] 1937 Unknown [id number] [id number] 1937 Unknown [id number] [id number] 1937 Unknown [id number] 1937 Unknown [id number] Social History Date Type Detail Facility Start: 06-30-2019 End: 09-14-2022 Tobacco smoking status NHIS Former smoker [place], [place] History of tobacco use Cigarette Smoker [place] Start: 1935 Sex Assigned At Not on file [place] Start: 11-04-2019 End: 09-14-2022 Tobacco use and exposure Never used [place] Start: 11-27-2022 End: 12-16-2022 Exposure to SARS-CoV-2 (event) Not sure [email or web address] Phone: Start: 06-11-2021 End: 12-16-2022 Alcohol intake Ex-drinker (finding) [employer] Phone: Sex Assigned At Female [facility] Tobacco smoking status Never [facility] History of tobacco use Current smoker [place] Self Representation Document Preparation [facility] Work Phone: Start: 10-31-2022 History SDOH Alcohol Frequency 1 [employer] Work Phone: Start: 10-31-2022 History SDOH Alcohol Std Drinks 0 [place] Self Representation Document Preparation [facility] Work Phone: Tobacco [facility] Comment on above: denies Tobacco smoking status No Smokin g Status Entered [facility] Functional Status Date Assessment Result Facility 12-12-2022 Functional Status No [facility] 12-12-2022 Functional Status [facility] 06-30-2022 Functional Status N/A [facility] Clinical Notes 06-11-2021 to 12-26-2022 Dafne Avalos RN - 12/26/2022 12:25 PM Brandy Swain RPH - 12/26/2022 10:44 AM ALEXANDRU Pantoja - 12/26/2022 9:11 AM Jf Rodriguez MD - 12/26/2022 6:35 AM ESTDischarge Instructions Note Date & Type Note Facility 12-26-2022 History of Present illness Narrative Pt leaves via [facility] transport. Daughter to follow to [facility]. Report called to nurse Jimenez at [facility]. Images from the original note were not included. [facility] Inpatient Discharge Medication Education Note Patient admitted for R ankle fracture Medications reviewed with the patient include: oxyCODONE-acetaminophen (PERCOCET) 5-325 MG per tablet 1 tablet gabapentin (NEURONTIN) capsule 100 mg pantoprazole (PROTONIX) tablet 40 mg metoprolol tartrate (LOPRESSOR) tablet 100 mg senna (SENOKOT) tablet 17.2 mg Patient education provided when necessary to include potential medication related side effects, dosing and reason for taking each. Explained the dose increase on gabapentin. Patient provided acknowledgement of understanding and had no additional questions. Justin Swain, PharmLyudmila 12/26/2022 10:11 AM MALI received message from [facility] this morning that insurance approval has been received. MALI spoke with pt's dtr Osbaldo and they are not able to transport today. MALI arranged wheelchair van transport for 12- 1230 pm filler picker. Nursing and Osbaldo notified of time. Osbaldo to come up and see pt as well. Pas ID completed last week and faxed to facility. No further needs identified at this time. Anny HORVATH 12/26/2022 Hospitalist Progress Note 12/26/2022 6:35 AM Subjective: Admit Date: 12/16/2022 PCP: Efrain Esparza MD Interval History: Aleena has no complaints this am. Her pain is controlled on Gabapentin / Percocet. No chest pain or SOB. Appetite is okay, no abdominal pain. Bowels moving and no trouble urinating. Awaiting [facility] approval for DC. Diet: ADULT DIET; Regular; Low Fat/Low Chol/High Fiber/2 gm Na ADULT ORAL NUTRITION SUPPLEMENT; Breakfast, Lunch, Dinner; Standard High Calorie/High Protein Oral Supplement Medications: Scheduled Meds: vitamin E 400 Units Oral Daily gabapentin 100 mg Oral BID [Held by provider] lisinopril 20 mg Oral Daily enoxaparin 30 mg SubCUTAneous BID pantoprazole 40 mg Oral QAM AC aspirin 81 mg Oral Daily atorvastatin 20 mg Oral Daily Vitamin D 5,000 Units Oral Daily DULoxetine 30 mg Oral Daily [Held by provider] furosemide 20 mg Oral Daily levothyroxine 50 mcg Oral Daily metoprolol tartrate 100 mg Oral Daily multivitamin 1 tablet Oral Daily spironolactone 25 mg Oral Daily potassium chloride 10 mEq Oral Daily with breakfast Continuous Infusions: Patient's current medications documented, reviewed, and updated. CBC: No results for input(s): WBC, HGB, PLT in the last 72 hours. BMP: No results for input(s): NA, K, CL, CO2, BUN, CREATININE, GLUCOSE in the last 72 hours. Hepatic: No results for input(s): AST, ALT, ALB, BILITOT, ALKPHOS in the last 72 hours. Troponin: No results for input(s): TROPONINI in the last 72 hours. BNP: No results for input(s): BNP in the last 72 hours. Lipids: No results for input(s): CHOL, HDL in the last 72 hours. Invalid input(s): LDLCALCU INR: No results for input(s): INR in the last 72 hours. Objective: Vitals: BP (!) 145/76 Pulse 76 Temp 98 F (36.7 C) (Oral) Resp 18 Ht 5' 6 (1.676 m) Wt 253 lb 12.8 oz (115.1 kg) SpO2 96% BMI 40.96 kg/m General appearance: alert and cooperative with exam HEENT: Head: Normocephalic, no lesions, without obvious abnormality. Eye: Normal external eye, conjunctiva, lids cornea, SONAM. Nose: Normal external nose, mucus membranes and septum. Neck: no adenopathy and supple, symmetrical, trachea midline Lungs: clear to auscultation bilaterally Heart: regular rate and rhythm, S1, S2 normal, and II/ systolic murmur. Abdomen: soft, non-tender; bowel sounds normal; no masses, no organomegaly and obese Extremities: No calf tenderness. Neurologic: Mental status: Alert, oriented, thought content appropriate Medical Decision Making (MDM) Data: External documents reviewed: - My CXR interpretation: - My EKG interpretation: - Discussed with: - Tests considered but not ordered: - Heart score: - Social Determinants of Health that impact treatment or disposition: - Assessment and Plan: Right ankle fracture - placed in a fracture boot by Dr. Salazar. On PT / OT daily with Percocet PRN for pain. Generalized weakness - PT / OT ordered daily. Slow to improve. HTN - Lisinopril and Lasix held secondary to low BP. Continues on Lopressor and Aldactone. Lumbar spinal stenosis with chronic low back pain - on Gabapentin 100 mg BID (did not tolerate the 300 mg dose). Hypothyroidism - on replacement. H/O Aortic stenosis Rheumatoid arthritis - on Humira every 14 days. Morbid obesity Hyperlipidemia - on Lipitor. GERD - stable on Protonix. Plan: DC to ECF when approved by insurance. Differential Diagnosis: - Condition is improving / unchanged / worsening: Improving Condition is at treatment goal: No Chronic condition is / is not having mild / moderate, severe exacerbation, progression or side effects of treatment: - Shared decision making: - Code status and discussions: DNR CC - A DVT prophylaxis: [x] Lovenox [] SCDs [] SQ Heparin [] Encourage ambulation, low risk for DVT, no chemical or mechanical prophylaxis necessary [] Already on Anticoagulation Patient Active Problem List: Acute diastolic heart failure (HCC) Adult body mass index 40 and over Aortic valve stenosis Benign hypertension 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 [employer] assisted with cee care and washed her back. Clothes changed and new brief applied. Assisted patient back to recliner. Patient has no further needs at this time, will continue to monitor. States nausea is better. I think I was just tired . States she is able to take her vitamin E capsule. MALI called to [facility] to see if insurance precert had been authorized and they have not had received precert as of yet. MALI faxed updates to [facility] and provided phone number to the floor in case they would receive precert later in the day. MALI following. Anny HORVATH 12/25/2022 [facility] Occupational Therapy Daily Note Date: 12/25/2022 Patient Name: Aleena Gill : 1935 (87 y.o.) Subjective: Patient was sitting in recliner upon OT arrival. Was agreeable to OT interventions. Pt is PROGRESSING toward goals and independence of Self Care this treatment session Continue to assess Pending Progress Objective ADLs: Grooming: Contact guard assistance (washing hands while standing at sink) Toileting: Stand by assistance (completing cee care and clothing management tasks in standing) Transfers: Sit to stand: Stand by assistance Stand to sit: Stand by assistance Toilet Transfer: Stand by assistance Assessment Assessment: Patient was sitting in recliner upon OT arrival. Was agreeable to OT interventions. Completed ADLs and functional transfers as documented above. Complained of dizziness and loss of appetite upon arrival, but agreed to participate in therapy. To increase activity tolerance for ADLs, patient engaged in BUE exercise with a 2 pound weight (shoulder flexion, shoulder abduction, elbow flexion, forearm supination, wrist flexion, wrist deviation and chest press) 1x20 without the need for a rest break. Complained of LUE soreness following these exercises. To increase independence with grooming tasks, patient tolerated static standing at walker level x2 minutes/45 seconds with SBA. Complained of back pain (4/10) and RLE pain (4/10) following this standing bout and requested to sit down. Patient remains in recliner with call light/personal items within reach and chair alarm activated upon OT departure. Will continue to progress patient and address goals as tolerated. Goals Short Term Goals Time Frame for Short Term Goals: 6 days (12/26/22) Short Term Goal 1: Patient will complete a commode transfer while using DME PRN with SBA - MET Short Term Goal 2: Patient will complete lower body bathing and/or dressing tasks while using adaptive equipment/techniques PRN with SBA. Short Term Goal 3: To increase activity tolerance, patient will tolerate 15 minutes of ther ex/act with no more than 1 rest break. Short Term Goal 4: To increase independence with grooming tasks, patient will tolerate static/dynamic standing x5 minutes with SBA and no LOB. Short Term Goal 5: N/A Intermediate Goals Time Frame for Superintendent Transportation Goals : STG=LTG Call light in reach, Phone in reach, Use of Gait belt, Chair alarm, and Left in chair Time In: 1001 Time Out: 1037 Timed Coded Minutes: 36 Total Treatment Time: 36 Delphine Bonilla OTR/L Date: 12/25/2022 Hospitalist Progress Note 12/25/2022 6:19 AM Subjective: Admit Date: 12/16/2022 PCP: Efrain Esparza MD Interval History: Aleena has no complaints this am. She states she continues to have trouble with her balance, I want to fall back . Pain fluctuates. No chest pain or SOB. Appetite is not very good but no nausea. Bowels have been moving about every 2 days which is normal for her. No trouble urinating. She states the plans are for her to go to the custodial for further care. Diet: ADULT DIET; Regular; Low Fat/Low Chol/High Fiber/2 gm Na ADULT ORAL NUTRITION SUPPLEMENT; Breakfast, Lunch, Dinner; Standard High Calorie/High Protein Oral Supplement Medications: Scheduled Meds: gabapentin 100 mg Oral BID [Held by provider] lisinopril 20 mg Oral Daily enoxaparin 30 mg SubCUTAneous BID pantoprazole 40 mg Oral QAM AC aspirin 81 mg Oral Daily atorvastatin 20 mg Oral Daily Vitamin D 5,000 Units Oral Daily DULoxetine 30 mg Oral Daily [Held by provider] furosemide 20 mg Oral Daily levothyroxine 50 mcg Oral Daily metoprolol tartrate 100 mg Oral Daily multivitamin 1 tablet Oral Daily spironolactone 25 mg Oral Daily vitamin E 400 Units Oral Daily potassium chloride 10 mEq Oral Daily with breakfast Continuous Infusions: Patient's current medications documented, reviewed, and updated. CBC: No results for input(s): WBC, HGB, PLT in the last 72 hours. BMP: No results for input(s): NA, K, CL, CO2, BUN, CREATININE, GLUCOSE in the last 72 hours. Hepatic: No results for input(s): AST, ALT, ALB, BILITOT, ALKPHOS in the last 72 hours. Troponin: No results for input(s): TROPONINI in the last 72 hours. BNP: No results for input(s): BNP in the last 72 hours. Lipids: No results for input(s): CHOL, HDL in the last 72 hours. Invalid input(s): LDLCALCU INR: No results for input(s): INR in the last 72 hours. Objective: Vitals: BP 122/74 Pulse 86 Temp 97.9 F (36.6 C) (Oral) Resp 18 Ht 5' 6 (1.676 m) Wt 253 lb 12.8 oz (115.1 kg) SpO2 95% BMI 40.96 kg/m General appearance: alert and cooperative with exam HEENT: Head: Normocephalic, no lesions, without obvious abnormality. Eye: Normal external eye, conjunctiva, lids cornea, SONAM. Nose: Normal external nose, mucus membranes and septum. Neck: no adenopathy and supple, symmetrical, trachea midline Lungs: clear to auscultation bilaterally Heart: regular rate and rhythm, S1, S2 normal, and II/ systolic murmur Abdomen: soft, non-tender; bowel sounds normal; no masses, no organomegaly and obese Extremities: No calf tenderness. Neurologic: Mental status: Alert, oriented, thought content appropriate Medical Decision Making (MDM) Data: External documents reviewed: My CXR interpretation: My EKG interpretation: Discussed with: Dr. Rowan at discharge. Tests considered but not ordered: Heart score: Social Determinants of Health that impact treatment or disposition: - Assessment and Plan: Right ankle fracture - placed in a fracture boot by Dr. Salazar. On PT / OT daily with Percocet PRN for pain. Generalized weakness - PT / OT ordered daily. Slow to improve. HTN - Lisinopril held secondary to low BP. Continues on Lopressor and Aldactone. Lumbar spinal stenosis with chronic low back pain - on Gabapentin 100 mg BID (did not tolerate the 300 mg dose). Hypothyroidism - on replacement. H/O Aortic stenosis Rheumatoid arthritis - on Humira every 14 days. Morbid obesity Hyperlipidemia - on Lipitor. GERD - stable on Protonix. Plan: Continue the current treatment / therapy. Plan to DC to [facility] when approved by insurance. Differential Diagnosis: - Condition is improving / unchanged / worsening: slowly improving Condition is at treatment goal: NO Chronic condition is / is not having mild / moderate, severe exacerbation, progression or side effects of treatment: - Shared decision making: - Code status and discussions: DNR CC - A DVT prophylaxis: [x] Lovenox [] SCDs [] SQ Heparin [] Encourage ambulation, low risk for DVT, no chemical or mechanical prophylaxis necessary [] Already on Anticoagulation Patient Active Problem List: Acute diastolic heart failure (HCC) Adult body mass index 40 and over Aortic valve stenosis Benign hypertension 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 Edema Gastroesophageal reflux disease Hallucinations Hoarseness Hyperglycemia Hypothyroidism Impacted cerumen Mixed hyperlipidemia Morbid obesity (HCC) Numbness of hand Pain of left lower extremity Rheumatoid arthritis (HCC) Spinal stenosis of lumbar region Type 2 diabetes mellitus (HCC) Unsteadiness on feet Generalized weakness Documentation of the Current Medications in the Medical Record (x) I have utilized all available immediate resources to obtain, update, or review the patient's current medications (including all prescriptions, [id number] products, herbals, cannabis / cannabidiol products, vitamin / mineral / dietary (nutritional) supplements). (Satisfies MIPS Performance) If Yes, Stop Here ( ) The patient is not eligible for medication reconciliation; the patient is in an emergent medical situation where delaying treatment would jeopardize the patient's health. (MIPS Performance exception / exclusion) ( ) I did not confirm, update or review the patient's current list of medications today. (Does not satisfy MIPS Performance) Advanced Care Plan (x) I confirmed that the patient's Advanced Care Plan is present, code status documented, or surrogate decision maker is listed in the patient's medical record. ( ) The patient's advanced care plan is not present because: (select) ( ) I confirmed today that the patient does not wish or was not able to name a surrogate decision maker or provide an Advance Care Plan. ( ) Hospice care is currently being provided or has been provided this calender year. ( ) I did not confirm today the presence of an Advance Care Plan or surrogate decision maker documented within the patient's medical record. (Does not satisfy MIPS performance). Андрей Rodriguez MD, MD [facility] Patient uses to call light to voice that she needs to go to the bathroom. Helped patient to her feet and she she stated I am losing my balance . I prevented her from falling and had another nurse help to regain her balance. She sat back down for a moment and we got her back to the bathroom and back to the chair with no issues. Pt has hair washed with shampoo cap per her daughter. Ambulates to BR and then back to chair. Pt took one Percocet for right ankle pain she rated 2/10 scale. Pt relates that it doesn't hurt much when she is still. Cee care provided. Pt's family brings in outside lunch for patient. [facility] Occupational Therapy Daily Note Date: 12/24/2022 Patient Name: Aleena Gill : 1935 (87 y.o.) Subjective: Pt in chair sleeping upon arrival Pt is PROGRESSING toward goals and independence of Self Care this treatment session Continue to assess Pending Progress Objective ADL Equipment Provided: Cotton Ball Machine Tender, Sock aid UE Bathing: Modified independent LE Bathing: Setup UE Dressing: Setup, Minimal assistance (Min A needed to manage buttons on button down blouse d/t numbess in fingers on THAIS hands. May benefit from use of button hook.) LE Dressing: Maximum assistance, Adaptive equipment Sit to stand: Contact guard assistance Stand to sit: Contact guard assistance Assessment Assessment: Pt in chair sleeping upon arrival. Awakens with verbal stimuli & agreeable to sponge bath seated in chair. Pt does not wish to ambulate to BR this morning. Completes all UB/LB bathing & dressing tasks as documented above. Utilizes AE but struggles with accuracy. May benefit from continued practices. Pt becomes discouraged frequently stating I dont know why I need to do this. I'm going to go to assisted living when I'm done here . Therapist encouraged pt to maintain/keep as much independence as she can. STS from chair for management of clothing & cee care is Min A/CGA. Fair balance with FWW while pulling up pants/underwear. Pt remained sitting in recliner at conclusion of session with call light in reach and all needs met. Discharge Recommendations: Continue to assess pending progress Activity Tolerance: Patient Tolerated treatment well, Patient limited by fatigue Goals Short Term Goals Time Frame for Short Term Goals: 6 days (12/26/22) Short Term Goal 1: Patient will complete a commode transfer while using DME PRN with SBA. Short Term Goal 2: Patient will complete lower body bathing and/or dressing tasks while using adaptive equipment/techniques PRN with SBA. Short Term Goal 3: To increase activity tolerance, patient will tolerate 15 minutes of ther ex/act with no more than 1 rest break. Short Term Goal 4: To increase independence with grooming tasks, patient will tolerate static/dynamic standing x5 minutes with SBA and no LOB. Short Term Goal 5: N/A Superintendent Transportation Goals Time Frame for Intermediate Goals : STG=LTG Call light in reach, Phone in reach, Use of Gait belt, and Left in chair Time In: 705 Time Out: 740 Timed Coded Minutes: 35 Total Treatment Time: 35 MARIN Franco, OTR/L Date: 12/24/2022 Up from chair and to BR with boot on to RLE. Pt does fairly well. Has small BM. Cee care provided. [facility] Occupational Therapy Daily Note Date: 12/23/2022 Patient Name: Aleena Gill : 1935 (87 y.o.) Subjective: Pt in therapy room following PT session. Pt is PROGRESSING toward goals and independence of Self Care this treatment session Continue to assess Pending Progress Objective Sit to stand: Contact guard assistance Stand to sit: Contact guard assistance Assessment Assessment: Pt in therapy room with MANAGER MACHINE upon arrivla. Agreeable to work with OTR. Engaged in THAIS UB exercises/activity this am. Addressed automatic pinsetter adjuster/pinch strength & exercises in all planes of UB using 2# wt to pt's tolerance. Rest breaks provided as pt needs. Pt returned to room via w/c. Transfers STS from w/c level w/ CGA, ambulates to bedside chair from doorway with FWW & CGA. Pt left in chair w/ legs elevated, call light in reach, and all needs met. Pt agreeable to ADL session tomorrow morning. Discharge Recommendations: Continue to assess pending progress Activity Tolerance: Patient Tolerated treatment well, Patient limited by fatigue Goals Short Term Goals Time Frame for Short Term Goals: 6 days (12/26/22) Short Term Goal 1: Patient will complete a commode transfer while using DME PRN with SBA. Short Term Goal 2: Patient will complete lower body bathing and/or dressing tasks while using adaptive equipment/techniques PRN with SBA. Short Term Goal 3: To increase activity tolerance, patient will tolerate 15 minutes of ther ex/act with no more than 1 rest break. Short Term Goal 4: To increase independence with grooming tasks, patient will tolerate static/dynamic standing x5 minutes with SBA and no LOB. Short Term Goal 5: N/A Intermediate Goals Time Frame for Superintendent Transportation Goals : STG=LTG Call light in reach, Phone in reach, Use of Gait belt, and Left in chair Time In: 740 Time Out: 810 Timed Coded Minutes: 30 Total Treatment Time: 30 MARIN Franco, OTR/L Date: 12/23/2022 MALI met with pt's dtr Merari in pt's room this morning and explained that referral made to [facility] for skilled care and await insurance authorization for her transfer. MALI explained to Merari that this will move her up to first on their list for assisted living if she is in their facility for skilled care. MALI called to [facility] and spoke with Kirsty, as Ben is off today, and she reports that precert has been started and they are just awaiting insurance approval. MALI provided contact number to SW office and to the hospital floor. MALI called and left a message for pt's dtr Osbaldo as well. SW following and await insurance authorization for pt to transfer. Anny TRUJILLO FOREPART RASPER 12/22/2022 MALI spoke with pt's dtr Osbaldo and she is in agreement with plan. Pas ID completed and faxed to facility in case pt would discharge over the weekend if prior auth is received. Anny HORVATH 12/22/2022 Hospitalist Progress Note 12/22/2022 12:14 PM Subjective: Admit Date: 12/16/2022 PCP: Efrain Esparza MD Interval History: The patient states that she continues to have pain in her right ankle. Says the pain is burning. We did increase her gabapentin from 100 mg twice daily to 300 mg twice daily and unfortunately she developed dizziness. Patient states that yesterday she developed nausea and belching and did not feel like eating. She had 1 small episode of emesis. Upon 5-day before she had some thumping in chest and she did not let nursing staff informed. She had no chest pain yesterday or today. She reports no shortness of breath today. Diet: ADULT DIET; Regular; Low Fat/Low Chol/High Fiber/2 gm Na ADULT ORAL NUTRITION SUPPLEMENT; Breakfast, Lunch, Dinner; Standard High Calorie/High Protein Oral Supplement Medications: Scheduled Meds: gabapentin 300 mg Oral BID [Held by provider] lisinopril 20 mg Oral Daily enoxaparin 30 mg SubCUTAneous BID pantoprazole 40 mg Oral QAM AC aspirin 81 mg Oral Daily atorvastatin 20 mg Oral Daily Vitamin D 5,000 Units Oral Daily DULoxetine 30 mg Oral Daily [Held by provider] furosemide 20 mg Oral Daily levothyroxine 50 mcg Oral Daily metoprolol tartrate 100 mg Oral Daily multivitamin 1 tablet Oral Daily spironolactone 25 mg Oral Daily vitamin E 400 Units Oral Daily potassium chloride 10 mEq Oral Daily with breakfast Continuous Infusions: PRN Medications: ondansetron, acetaminophen, senna, oxyCODONE-acetaminophen Objective: Vitals: BP 131/74 Pulse (!) 103 Temp 97.8 F (36.6 C) (Oral) Resp 18 Ht 5' 6 (1.676 m) Wt 256 lb (116.1 kg) SpO2 95% BMI 41.32 kg/m BMI: Body mass index is 41.32 kg/m . CBC: Recent Labs 12/21/22 1813 WBC 10.9 HGB 11.4* PLT 428 BMP: Recent Labs 12/21/22 1220 12/22/22 0440 NA 134* 137 K 5.2 4.3 CL 100 101 CO2 22 26 BUN 38* 37* CREATININE 1.26* 0.90 GLUCOSE 119* 100* Physical Exam: General Appearance: Up in chair, alert and oriented to person, place and time, in no acute distress Cardiovascular: normal rate, regular rhythm, normal S1 and S2, 2/6 systolic murmur Pulmonary/Chest: clear to auscultation bilaterally- no wheezes, rales or rhonchi, normal air movement, no respiratory distress Abdomen: soft, non-tender, non-distended, normal bowel sounds Extremities: no cyanosis, clubbing or edema Skin: warm and dry, no rash Head: normocephalic and atraumatic Neurological: alert, oriented, normal speech, no focal findings or movement disorder noted Medical Decision Making (MDM) Data: External documents reviewed: My CXR interpretation: My EKG interpretation: Discussed with: Tests considered but not ordered: Heart score: Social Determinants of Health that impact treatment or disposition: Assessment and Plan: 1. Right ankle fracture -s/p surgical repair by Dr. Salazar at [facility], continue PT and OT, on Percocet for pain control 2. Generalized weakness - improving with PT and OT 3. Abdominal discomfort, nausea -we checked labs yesterday and they were unremarkable except elevated troponin that trended down. UA was negative. She reports no chest pain or shortness of breath today. Abdominal examination unremarkable. She is on Protonix. We will add Maalox. Continue monitoring clinical condition 4. Hypertension - blood pressure has been borderline. Stop lisinopril, continue on Lopressor and Aldactone 5. Lumbar spinal stenosis with chronic low back pain -controlled on gabapentin, Cymbalta. We tried to increase gabapentin dose to 300 mg twice daily however she developed dizziness. Will decrease back to 100 mg twice daily 6. GERD -on Protonix. We will add MiraLAX due to nausea and symptoms of indigestion. 7. Hypothyroidism -controlled, continue levothyroxine 8. History of aortic stenosis 12. Rheumatoid arthritis - on Humira every 14 days 13. Morbid obesity 14. Hyperlipidemia -on Lipitor Differential Diagnosis: Condition is improving / unchanged / worsening: Improving Condition is a treatment goal: No Chronic condition is / is not having mild / moderate, severe exacerbation, progression or side effects of treatment: Shared decision making: Code status and discussions: Full code DVT prophylaxis: [x] Lovenox [] SCDs [] SQ Heparin [] Encourage ambulation, low risk for DVT, no chemical or mechanical prophylaxis necessary [] Already on Anticoagulation Nicholas Rowan MD, MD Rounding Hospitalist [facility] Occupational Therapy Daily Note Date: 12/22/2022 Patient Name: Aleena Gill : 1935 (87 y.o.) Subjective: Pt in therapy room following PT session. Pt shows NO CHANGE toward goals and independence of Self Care this treatment session Continue to assess Pending Progress Objective ADL Feeding: Setup Grooming: Contact guard assistance (completed standing at sink) UE Bathing: Setup LE Bathing: (Pt washes cee area while seated on commode) UE Dressing: Setup LE Dressing: Maximum assistance (to stehpen brief, sweatpants and L sock) Toileting: Contact guard assistance Toilet Transfer: Minimal assistance Sit to stand: Contact guard assistance, Minimal assistance Stand to sit: Contact guard assistance Assessment Assessment: Pt in therapy room following PT session. Completes ADL tasks in BR as noted above. Requires CGA for STS from w/c and MIN A for STS from commode as session progresses and pt is fatigued. Pt requires MAX A from therapist to stephen brief and sweatpants. Educated pt on LB dressing techniques to stephen affected LE first. Pt completes several STS and trials of LB dressing due to urine incontinence. Noted increased fatigue by end of session. Requires several prompts for functional mobility from BR to recliner to keep upright posture and keep walker close to her. Pt reclined in chair at conclusion of session with call light in reach, alarm on and family in room. Boot off at this time and ice applied. Activity Tolerance: Patient Tolerated treatment well, Patient limited by fatigue Exercises: See Flowsheets Goals Short Term Goals Time Frame for Short Term Goals: 6 days (12/26/22) Short Term Goal 1: Patient will complete a commode transfer while using DME PRN with SBA. Short Term Goal 2: Patient will complete lower body bathing and/or dressing tasks while using adaptive equipment/techniques PRN with SBA. Short Term Goal 3: To increase activity tolerance, patient will tolerate 15 minutes of ther ex/act with no more than 1 rest break. Short Term Goal 4: To increase independence with grooming tasks, patient will tolerate static/dynamic standing x5 minutes with SBA and no LOB. Short Term Goal 5: N/A Intermediate Goals Time Frame for Intermediate Goals : STG=LTG Call light in reach, Phone in reach, Use of Gait belt, Chair alarm, Family Present, and Left in chair Time In: 939 Time Out: 1015 Timed Coded Minutes: 35 Total Treatment Time: 35 JIM Ellis Date: 12/22/2022 This nurse gets pt up to bathroom. Pt does well ambulating with walker to bathroom. On the way back to chair, pt almost falls. Pt lowers herself to toilet. Daisy RN in to assist with pt to chair. Pt very weak and says that she is having a hard time moving her legs. During this, pt has a run of tachycardia of 140. Denies CP, SOB, and palpitations. This RN called into pt room and pt is very tearful stating that some man and woman, I don't know who they are, dumped me off here at 10 in the morning and no one has been in here to check on me since. I have not had anything to eat today, nobody brought me breakfast, lunch, or dinner and I won't put up with this! This nurse continually attempts to reorient pt and pt continues to deny attempts stating that somebody here thinks I am crazy, but I am not crazy . Food is offered to pt, but pt denies.This nurse tells pt that no one here thinks that way and attempts to reorient again. Pt calms down a bit. Percocet given for ankle pain, see eMAR. Dr. Deng called and made aware of cardiac consult. Made aware of diaphoresis, dizziness, and chest throbbing yesterday. Made aware of troponin and EKG results. No further orders for now. [facility] Occupational Therapy Plan of Care OT Orders Received and Evaluation Complete Date: 12/21/2022 Patient Name: Aleena Gill : 1935 (87 y.o.) Referring Practitioner: Dr. Rodriguez Referral Date: 12/21/22 Diagnosis: Generalized weakness Treatment Diagnosis: Generalized weakness Identified Problem Areas Performance deficits / Impairments: Decreased ADL status, Decreased strength, Decreased ROM, Decreased safe awareness, Decreased endurance, Decreased balance Justification for Skilled Services: [x] Complete Daily Tasks Safely [x] Improve Balance [x] Return to Prior Level of Function [x] Family/Caregiver Education [x] Improve UE strength [x] Patient Education: [x]Adaptive Equipment [x]Home Exercise Program and Progression Treatment Plan Occupational Therapy Plan Times Per Week: 6 days Times Per Day: Once a day Current Treatment Recommendations: Strengthening, Balance training, Endurance training, Safety education & training, Patient/Caregiver education & training, Self-Care / ADL, Home management training [] Modalities: [x] Therapeutic Exercise [x] Therapeutic Activity [] Splinting: [] Home Safety Evaluation [x] ADL Retraining [] Muscle Re-education [] Cognitive Retraining [] Sensory Integration [x] Patient Education [x] Home Exercise Program [] Fine Motor Coordination GOALS Short Term Goals Time Frame for Short Term Goals: 6 days (12/26/22) Short Term Goal 1: Patient will complete a commode transfer while using DME PRN with SBA. Short Term Goal 2: Patient will complete lower body bathing and/or dressing tasks while using adaptive equipment/techniques PRN with SBA. Short Term Goal 3: To increase activity tolerance, patient will tolerate 15 minutes of ther ex/act with no more than 1 rest break. Short Term Goal 4: To increase independence with grooming tasks, patient will tolerate static/dynamic standing x5 minutes with SBA and no LOB. Short Term Goal 5: N/A Intermediate Goals Time Frame for Intermediate Goals : STG=LTG Delphine Bonilla, OTR/L Date: 12/21/2022 [facility] Occupational Therapy Daily Note Date: 12/21/2022 Patient Name: Aleena Gill : 1935 (87 y.o.) Subjective: Patient was sitting in recliner upon OT arrival. Was agreeable to OT interventions. Pt is PROGRESSING toward goals and independence of Self Care this treatment session Continue to assess Pending Progress Objective ADLs: UE Bathing: Setup (sitting in recliner) LE Bathing: Minimal assistance (sitting in recliner/standing PRN) UE Dressing: Setup (doffing/donning nightgown in sitting) LE Dressing: Supervision, Adaptive equipment, Increased time to complete, Verbal cueing (donning/doffing bilateral slipper socks in sitting) Toileting: Contact guard assistance Transfers: Sit to stand: Stand by assistance Stand to sit: Stand by assistance Assessment Assessment: Patient was sitting in recliner upon OT arrival. Was agreeable to OT interventions. Completed ADLs and functional transfers as documented above. Required verbal cues for proper hand placement during sit <> stand transfers. Continues to c/o burning pain to RLE. Emphasized the importance of wearing walking boot during all weight bearing activities for increased safety. Increased SOB noted following ADL session. Patient remains in recliner with call light/personal items within reach and chair alarm activated upon OT departure. Will continue to progress patient as tolerated. Goals Short Term Goals Time Frame for Short Term Goals: 5 days (12/22/22) Short Term Goal 1: Patient will complete a commode transfer while using DME PRN with SBA. Short Term Goal 2: Patient will complete upper body bathing and/or dressing tasks while using adaptive equipment/techniques PRN with SET-UP - MET Short Term Goal 3: Patient will complete lower body bathing and/or dressing tasks while using adaptive equipment/techniques PRN with SBA. Short Term Goal 4: To increase activity tolerance, patient will tolerate 10 minutes of ther ex/act with no more than 2 rest breaks - MET Short Term Goal 5: To increase independence with grooming tasks, patient will tolerate static/dynamic standing x5 minutes with SBA and no LOB. Superintendent Transportation Goals Time Frame for Intermediate Goals : STG=LTG Call light in reach, Phone in reach, Use of Gait belt, Chair alarm, and Left in chair Time In: 846 Time Out: 932 Timed Coded Minutes: 46 Total Treatment Time: 46 Delphine Bonilla OTR/L Date: 12/21/2022 Patient calls stating she doesn't feel good . RN at bedside. Pt is pale and diaphoretic sitting up in chair. Nauseated and has 1 small episode of emesis. Pt states this has been going on intermittently since yesterday. Reports that yesterday she woke up around 0900 with a thumping in chest . Reports she has samuel having episodes of dizziness since. Currently denies chest pain. Therapy evals and notes sent to [facility], per their request, so determination can be made re: placement. Will assist with discharge planning as appropriate. ALEXANDRU Blair 12/21/2022 Swingbed IDT team meeting held this morning regarding pt progress. Swing bed coordinator reports that pt's dtr has contacted [facility] regarding the assisted living and pt could be transferred there as a skilled pt to be in their facility and then transition to assisted living from there. MALI made referral to [facility] and spoke with Ben. Discussed with her pt current SNF status and potential for bringing her in for continued SNF care. Ben reports that she will review and if they can accept as skilled that would move pt to the top of the list for an assisted living room since she will be in their facility. MALI faxed information and will await response from [facility]. Anny HORVATH 12/20/2022 [facility] Occupational Therapy Daily Note Date: 12/20/2022 Patient Name: Aleena Gill : 1935 (87 y.o.) Subjective: Patient was sitting in recliner upon OT arrival. Was agreeable to OT interventions. Pt is PROGRESSING toward goals and independence of Self Care this treatment session Continue to assess Pending Progress Objective ADLs: LE Dressing: Supervision, Verbal cueing (donned right sock with AE) Toileting: Contact guard assistance; Supervision (SUP for cee care, CGA for clothing management) Transfers: Sit to stand: Minimal assistance, Verbal cueing Stand to sit: Contact guard assistance Toilet: Contact guard assistance, Verbal cueing Assessment Assessment: Patient was sitting in recliner upon OT arrival. Was agreeable to OT interventions. Completed ADLs and functional transfers as documented above. Declined sponge bathing and dressing tasks stating that she washed up/changed at 0300 earlier this morning. Engaged in BUE strengthening exercises in all planes 1x20 while using a 2 pound weight for resistance. Tolerated exercise x ~11 minutes and did not require any rest breaks. Fatigue noted following exercise and instructed patient in PLB techniques. Patient remains in recliner with call light/personal items within reach and chair alarm activated upon OT departure. Will continue to progress patient as tolerated. Activity Tolerance: Patient Tolerated treatment well, Patient limited by fatigue Goals Short Term Goals Time Frame for Short Term Goals: 5 days (12/22/22) Short Term Goal 1: Patient will complete a commode transfer while using DME PRN with SBA. Short Term Goal 2: Patient will complete upper body bathing and/or dressing tasks while using adaptive equipment/techniques PRN with SET-UP - MET Short Term Goal 3: Patient will complete lower body bathing and/or dressing tasks while using adaptive equipment/techniques PRN with SBA. Short Term Goal 4: To increase activity tolerance, patient will tolerate 10 minutes of ther ex/act with no more than 2 rest breaks - MET Short Term Goal 5: To increase independence with grooming tasks, patient will tolerate static/dynamic standing x5 minutes with SBA and no LOB. Intermediate Goals Time Frame for Intermediate Goals : STG=LTG Call light in reach, Phone in reach, Use of Gait belt, Chair alarm, and Left in chair Time In: 845 Time Out: 923 Timed Coded Minutes: 38 Total Treatment Time: 38 ANTWON Cabrera/[place] Date: 12/20/2022 [facility] Swing Bed Interdisciplinary Care Plan Conference Report Recertification for Continued Skilled Care. Patients name:Aleena Gill Date of Conference: 12/20/2022 The Following Information was discussed and agreed upon with the patient and/or Caregivers as listed below. Names of Team Members and Caregivers present for meeting: Inspector Subassemblies: Lisset Gauthier Nursing: Zack William Therapy: Zack Juarez, PT; Charlotte Ashraf/LEVIR Assistant Project Engineer: Reyes Simpson Activities: Amanda Marinelli Pastoral Care: Caregivers: [] Spouse [x] Child/Children [] Significant Other [] Other: Nutrition: Current Body Weight: Wt Readings from Last 1 Encounters: 12/19/22 256 lb (116.1 kg) Weight Change: 3# gain since admission In: 340 [P.O.:340] Out: - Current Diet order:ADULT DIET; Regular; Low Fat/Low Chol/High Fiber/2 gm Na ADULT ORAL NUTRITION SUPPLEMENT; Breakfast, Lunch, Dinner; Standard High Calorie/High Protein Oral Supplement Intakes: 76-100% of meals and supplements Diet Education Provided: encouraged protein foods for healing needs Goal: PO >75% meals and supplements Spiritual: Religion needs met: [x] Yes [] No [] N/A Notified Senior Recruitment Consultant or Tire Specialist of admission: [] Yes [] No [x] N/A Patient added to Communion List: [] Yes [x] No [] N/A Any other concerns or comments: Goal: Participate 2-3 times per week Occupational Therapy: Current ADL Status: ADL Feeding: Setup Grooming: Contact guard assistance (completed standing at sink) UE Bathing: Setup, Modified independent (bathing at sink) LE Bathing: Setup, Minimal assistance (bathing seated at sink) UE Dressing: Setup, Modified independent (don bra and nightgown) LE Dressing: Moderate assistance (to thread brief over boot) Toileting: Minimal assistance Safety: Good Recommendations for adaptive equipment: [] Long handled sponge [] Long Handled Shoe [place] [] Extended Tub Bench Short Term Goals Time Frame for Short Term Goals: 5 days (12/22/22) Short Term Goal 1: Patient will complete a commode transfer while using DME PRN with SBA. Short Term Goal 2: Patient will complete upper body bathing and/or dressing tasks while using adaptive equipment/techniques PRN with SET-UP. -MET Short Term Goal 3: Patient will complete lower body bathing and/or dressing tasks while using adaptive equipment/techniques PRN with SBA. Short Term Goal 4: To increase activity tolerance, patient will tolerate 10 minutes of ther ex/act with no more than 2 rest breaks. Short Term Goal 5: To increase independence with grooming tasks, patient will tolerate static/dynamic standing x5 minutes with SBA and no LOB. Superintendent Transportation Goals Time Frame for Superintendent Transportation Goals : STG=LTG Physical Therapy: Transfers: Transfers Sit to Stand: Minimal Assistance, Contact guard assistance Stand to Sit: Contact guard assistance Mobility/Ambulation: Ambulation Surface: Level tile Device: Rolling Walker Assistance: Contact guard assistance, Stand by assistance Quality of Gait: slowed, shortened steps due to protective boot Distance: 20 ft x1 Comments: slow but steady with w.walker Equipment: [x] Rolling Walker [] Straight Cane [] Standard Walker Safety: Good Short Term Goals: Time Frame for Short Term Goals: NA Speech Therapy: Respiratory Therapy: Nursing: Skin/Wound/Incisions: Retired, Read Only Skin Color/Condition Skin Color: Ecchymosis (comment) Skin Condition/Temp: Swollen/edematous Skin Integumentary Skin Color: Ecchymosis (comment) Skin Condition/Temp: Swollen/edematous Skin Integrity: Ecchymosis Location: RLE Pain Control: Percocet New Medications since admission to Swing Bed: Anticoagulants: lovenox Goals: Pt will remain free from falls Pt will have control of acute pain Activities: Activity as tolerated, TV, visitors Goal: Participate in 3 activities per week Inspector Subassemblies: Plan for Discharge: Update insurance today. Swing bed coordinator reports that pt's dtr has contacted [facility] regarding the assisted living and pt could be transferred there as a skilled pt to be in their facility and then transition to assisted living from there. Follow Up/Services needed: Referral made to [facility] for continued SNF care, await response. Continued skilled needs: PT/OT Skilled Services are for the ongoing condition for which the individual received inpatient care in a hospital. Physician signature certifies patient continued need for SNF inpatient care. Physical Therapy [facility] Physical Therapy Date: 12/20/2022 Patient Name: Aleena Gill : 1935 [x] Pt Refusal Patient in chair upon arrival with family members present in room. Patient complains of burning in her R foot but this has decreased some since her sock was removed. She declines working with therapy at this time stating that she is tired and she is also waiting for SWB meeting to come to her room and talk to her and family. Will return after lunch and progress as able. [] Pt Unavailable due to: Мария Lozada, MANAGER MACHINE Date: 12/20/2022 Comprehensive Nutrition Assessment Type and Reason for Visit: Reassess Nutrition Recommendations/Plan: Continue current diet. Continue strawberry ensure enlive, 4 oz TID with meals. Encourage protein foods for healing needs . Malnutrition Assessment: Malnutrition Status: At risk for malnutrition (Comment) (12/18/22 5311) Context: Acute Illness Findings of the 6 clinical characteristics of malnutrition: Energy Intake: Mild decrease in energy intake (Comment) (acutely) Weight Loss: No significant weight loss Body Fat Loss: No significant body fat loss Muscle Mass Loss: No significant muscle mass loss Fluid Accumulation: Mild Extremities Animal Trainer Supervisor Strength: Not Performed Nutrition Assessment: Continued increased nutrient needs aeb healing needs from ankle Fx. PO has been good of meals and supplements. 1210 ml fluids. Weight gain of ~ 3# since admission. No new labs noted. Encourage protein foods to aid healing needs. c/o pain in ankle. Cannot tolerate milk products for protein, but does like peanut butter, states she had eggs this morning. Not real fond of the ensure, but she is drinking it. Nutrition Related Findings: + loose BM 12/18/22, + 1 generalized, + 2 RLE, + 2 pitting LLE Wound Type: Surgical Incision Current Nutrition Intake & Therapies: Average Meal Intake: 76-100% Average Supplements Intake: 76-100% ADULT DIET; Regular; Low Fat/Low Chol/High Fiber/2 gm Na ADULT ORAL NUTRITION SUPPLEMENT; Breakfast, Lunch, Dinner; Standard High Calorie/High Protein Oral Supplement Anthropometric Measures: Height: 5' 6 (167.6 cm) [place] Body Weight (IBW): 130 lbs (59 kg) Admission Body Weight: 253 lb 8.5 oz (115 kg) Current Body Weight: 256 lb (116.1 kg), 196.9 % IBW. Weight Source: Bed Scale Current BMI (kg/m2): 41.3 Usual Body Weight: 250 lb (113.4 kg) % Weight Change (Calculated): 2.4 Weight Adjustment For: No Adjustment BMI Categories: Obese Class 3 (BMI 40.0 or greater) Estimated Daily Nutrient Needs: Energy Requirements Based On: Kcal/kg Weight Used for Energy Requirements: Current Energy (kcal/day): 4143-1621 (11-15) Weight Used for Protein Requirements: [place] Protein (g/day): 63-73 (1.2-1.4) Method Used for Fluid Requirements: 1 ml/kcal Fluid (ml/day): 1800 Nutrition Diagnosis: Increased nutrient needs related to acute injury/trauma as evidenced by wounds Nutrition Interventions: Food and/or Nutrient Delivery: Continue Current Diet, Continue Oral Nutrition Supplement Nutrition Education/Counseling: Education initiated Coordination of Nutrition Care: Continue to monitor while inpatient Plan of Care discussed with: Patient and son Goals: Previous Goal Met: Progressing toward Goal(s) Goals: Meet at least 75% of estimated needs Nutrition Monitoring and Evaluation: Behavioral-Environmental Outcomes: None Identified Food/Nutrient Intake Outcomes: Supplement Intake, Food and Nutrient Intake Physical Signs/Symptoms Outcomes: Biochemical Data, Weight, Fluid Status or Edema Discharge Planning: MARTI SIMPSON RD, LD Contact: [phone] This nurse gives pain medication, see eMAR for further details, for a 10/10 aching/burning in pts lower right extremity. Pts LRE elevated and ice applied. Upon reassessment, pt still complains of 10/10 pain with burning. When asked what further we can do for pt, she states I don't know what you can do for me . Will continue to monitor and report off to pt nurse Judy REDDY. Patient requested to get washed up at this time. Patient was given washcloths and proceeded to wash herself up while seated at the sink. Patient was able to ambulate with a one assist and her walker and tolerated fairly well. Assisted back to chair when done. No further needs, will continue to monitor. Physical Therapy [facility] Date: 12/19/2022 Physical Therapy Daily Note Patient Name: Aleena Gill : 1935 (87 y.o.) Pt is PROGRESSING toward goals and increased independence of mobility this treatment session Assessment Assessment: Patient seated up in chair after working with VEGETABLE FARMER. States she is tired but agrees to do what she can with MANAGER MACHINE. Performs seated exercises as outlined above but does not wish to complete standing exercises or gait. Will resume with these tomorrow as able. Patient remains up in chair following with call light in reach. Safety Devices Type of Devices: Call light within reach, Left in chair Call light in reach, Phone in reach, and Left in chair Time In: 1440 Time Out: 1456 Timed Coded Minutes: 16 Total Treatment Time: 16 Exercises: See Flowsheets Plan Cont Per Plan Of Care Goals Short Term Goals Time Frame for Short Term Goals: NA Superintendent Transportation Goals Time Frame for Intermediate Goals : 7 days (12/22/2022) Superintendent Transportation Goal 1: Patient to transfer sit to stand modified independent Intermediate Goal 2: Patient to transfer supine to sit and sit to supine modified independent Superintendent Transportation Goal 3: Patient to ambulate 75 ft x2 with w.walker and protective boot R Le modified independent Superintendent Transportation Goal 4: Patient to have good dynamic standing balance to complete ADLS safely [facility] License Number: MANAGER MACHINE Date: 12/19/2022 [facility] Occupational Therapy Daily Note Date: 12/19/2022 Patient Name: Aleena Gill : 1935 (87 y.o.) Subjective: Patient seated in recliner upon arrival, agreeable to OT interventions. Pt is PROGRESSING toward goals and independence of Self Care this treatment session Continue to assess Pending Progress Objective ADL LE Dressing: Moderate assistance (to thread brief over boot) Toileting: Minimal assistance Toilet Transfer: Minimal assistance, 2 Person assistance Sit to stand: Minimal assistance, 2 Person assistance Stand to sit: Minimal assistance, 2 Person assistance Assessment Assessment: Patient seated in recliner upon arrival, agreeable to OT interventions at this time. Engages in UB exercise to improve UB endurance to assist w/ ADL and IADL tasks. Good tolerance of UB exercise for 15 min w/o rest periods. Transitioned to static standing task w/ one hand support on AD to address standing tolerance to assist with ADL and IADL tasks. Patient engages in fxnl task for 4 min 40 seconds w/o LOB, CGA provided throughout. Once seated reports she needs to use BR, patient experiences a major posterior LOB, requires MAX A from therapist to correct. Patient safely lands in chair, requires a seated rest period before attempting to ambulate back into BR. +2 is required for remaining mobility and transfers due to safety concerns. Remains in recliner at end of session w/ call light and other personal items within reach. Will continue to address goals and progress patient as able. Activity Tolerance: Patient Tolerated treatment well, Patient limited by fatigue Exercises: See Flowsheets Goals Short Term Goals Time Frame for Short Term Goals: 5 days (12/22/22) Short Term Goal 1: Patient will complete a commode transfer while using DME PRN with SBA. Short Term Goal 2: Patient will complete upper body bathing and/or dressing tasks while using adaptive equipment/techniques PRN with SET-UP. -MET Short Term Goal 3: Patient will complete lower body bathing and/or dressing tasks while using adaptive equipment/techniques PRN with SBA. Short Term Goal 4: To increase activity tolerance, patient will tolerate 10 minutes of ther ex/act with no more than 2 rest breaks. Short Term Goal 5: To increase independence with grooming tasks, patient will tolerate static/dynamic standing x5 minutes with SBA and no LOB. Superintendent Transportation Goals Time Frame for Intermediate Goals : STG=LTG Inpatient safety: Call light in reach, Phone in reach, Use of Gait belt, Nurse Notified, and Left in chair Time In: 1356 Time Out: 1435 Timed Coded Minutes: 39 Total Treatment Time: 39 JIM Silva Date: 12/19/2022 [facility] Occupational Therapy Daily Note Date: 12/19/2022 Patient Name: Aleena Gill : 1935 (87 y.o.) Subjective: Patient seated in therapy room, resting from PT upon arrival. Agreeable to OT ADL this date. Pt is PROGRESSING toward goals and independence of Self Care this treatment session Continue to assess Pending Progress Objective ADL Feeding: Setup Grooming: Contact guard assistance (completed standing at sink) UE Bathing: Setup, Modified independent (bathing at sink) LE Bathing: Setup, Minimal assistance (bathing seated at sink) UE Dressing: Setup, Modified independent (don bra and nightgown) LE Dressing: Minimal assistance (LB clothing management following LB bathing) Toileting: None Sit to stand: Minimal assistance Stand to sit: Minimal assistance Assessment Assessment: Patient in therapy room, resting from PT session upon arrival. Agreeable to OT interventions at this time. Sponge bathing and related ADLs are completed, see above information regarding assistance levels. Requires MIN A for transfers this date d/t patient's multiple reports of feeling tired and she (MANAGER MACHINE) wore me out . Noticeable SOB, shakiness and fatigue is present, implements PLB w/o verbal cues. Remains in recliner at end of session w/ call light and other personal items within reach. RN notified of patients SOB, shakiness, and fatigue. Will continue to address goals and progress patient as able. Activity Tolerance: Patient limited by fatigue Exercises: See Flowsheets Goals Short Term Goals Time Frame for Short Term Goals: 5 days (12/22/22) Short Term Goal 1: Patient will complete a commode transfer while using DME PRN with SBA. Short Term Goal 2: Patient will complete upper body bathing and/or dressing tasks while using adaptive equipment/techniques PRN with SET-UP. -MET Short Term Goal 3: Patient will complete lower body bathing and/or dressing tasks while using adaptive equipment/techniques PRN with SBA. Short Term Goal 4: To increase activity tolerance, patient will tolerate 10 minutes of ther ex/act with no more than 2 rest breaks. Short Term Goal 5: To increase independence with grooming tasks, patient will tolerate static/dynamic standing x5 minutes with SBA and no LOB. Superintendent Transportation Goals Time Frame for Superintendent Transportation Goals : STG=LTG Inpatient safety: Call light in reach, Phone in reach, Use of Gait belt, Nurse Notified, and Left in chair Time In: 1029 Time Out: 1111 Timed Coded Minutes: 42 Total Treatment Time: 42 JIM Silva Date: 12/19/2022 Private duty care listing and phone number to [facility] left in pt room with pt and her son to give to her dtr. Anny ROCHAW 12/19/2022 OT relays to scenario writer that patient was short of breath and shaking during ambulation to bathroom. This nurse assesses patient to find her upright in chair talking on telephone. SpO2 reads 93% on room with 108 HR. No sob noted, talking without difficulty. Pt denies pain at this time. Physical Therapy [facility] Date: 12/19/2022 Physical Therapy Daily Note Patient Name: Aleena Gill : 1935 (87 y.o.) Pt is PROGRESSING toward goals and increased independence of mobility this treatment session Assessment Sit to Stand: Minimal Assistance, Contact guard assistance Stand to Sit: Contact guard assistance WB Status: WBAT with boot on Ambulation Surface: Level tile Device: Rolling Walker Assistance: Contact guard assistance, Stand by assistance Quality of Gait: slowed, shortened steps due to protective boot Distance: 20 ft x1 Comments: slow but steady with w.walker Assessment: Patient seated up in chair visiting with son. Sit to stand from chair is min /CGA. Notes pain and stiffness in R ankle. Ambulates with wheeled walker to hallway where w/c is waiting. Requires min/CGA for gait. Wheeled to therapy room and is able to complete seated and standing exercises as outlined above with fair tolerance. Patient somewhat SOB during exercises. She remains in therapy room to work with MIKE. Safety Devices Type of Devices: Gait belt (in w/c in therapy room to work with VEGETABLE FARMER) Use of Gait belt and Other Staff Present ; in w/c in therapy room to work with MIKE Time In: 1000 Time Out: 1027 Timed Coded Minutes: 27 Total Treatment Time: 27 Exercises: See Flowsheets Plan Cont Per Plan Of Care Goals Short Term Goals Time Frame for Short Term Goals: NA Superintendent Transportation Goals Time Frame for Intermediate Goals : 7 days (12/22/2022) Intermediate Goal 1: Patient to transfer sit to stand modified independent Intermediate Goal 2: Patient to transfer supine to sit and sit to supine modified independent Superintendent Transportation Goal 3: Patient to ambulate 75 ft x2 with w.walker and protective boot R Le modified independent Superintendent Transportation Goal 4: Patient to have good dynamic standing balance to complete ADLS safely Мария Lozada Therapy License Number: MANAGER MACHINE Date: 12/19/2022 Physical Therapy [facility] Date: 12/18/2022 Physical Therapy Daily Note Patient Name: Aleena Gill : 1935 (87 y.o.) Pt is PROGRESSING toward goals and increased independence of mobility this treatment session Assessment Sit to Stand: Minimal Assistance, Contact guard assistance Stand to Sit: Contact guard assistance WB Status: WBAT with boot on Ambulation Surface: Level tile Device: Rolling Walker Assistance: Contact guard assistance Quality of Gait: slowed, shortened steps due to protective boot Distance: 15 ft x1 Comments: slow but steady with w.walker Assessment: Patient in therapy room after working with OT. She agrees to stay and work with MANAGER MACHINE. She is able to complete seated exercises for B LE strenghenging in sitting and standing as outlined above with good tolerance. Wheeled back to room following. Sit to stand from w/c is min/CGA. Ambulates from doorway to bedside chair ~15 ft x1 with wheeled walker and min/CGA. Up in chair following with call light in reach. Safety Devices Type of Devices: Call light within reach, Gait belt, Left in chair, Nurse notified Call light in reach, Phone in reach, Use of Gait belt, Nurse Notified, and Left in chair Time In: 1414 Time Out: 1440 Timed Coded Minutes: 26 Total Treatment Time: 26 Exercises: See Flowsheets Plan Cont Per Plan Of Care Goals Short Term Goals Time Frame for Short Term Goals: NA Intermediate Goals Time Frame for Superintendent Transportation Goals : 7 days (12/22/2022) Intermediate Goal 1: Patient to transfer sit to stand modified independent Superintendent Transportation Goal 2: Patient to transfer supine to sit and sit to supine modified independent Intermediate Goal 3: Patient to ambulate 75 ft x2 with w.walker and protective boot R Le modified independent Intermediate Goal 4: Patient to have good dynamic standing balance to complete ADLS safely [facility] Therapy License Number: MANAGER MACHINE Date: 12/18/2022 [facility] Occupational Therapy Daily Note Date: 12/18/2022 Patient Name: Aleena Gill : 1935 (87 y.o.) Subjective: Pt sitting in recliner sleeping upon arrival. Agreeable to OT tx this afternoon. Pt is PROGRESSING toward goals and independence of Self Care this treatment session Continue to assess Pending Progress Objective Sit to stand: Contact guard assistance Stand to sit: Contact guard assistance Assessment Assessment: Pt in sleeping in recliner upon arrival. Awakens to call of name and is agreeable to OT tx this afternoon. STS from chair is CGA and ambulates to w/c at door way w/ FWW & R boot w/ CGA. Wheeled to therapy room and tolerates THAIS UB activity in seated x 6 min w/ 1 short rest break. Engages in THAIS UB exercises 1x20 via 2# wt, tolerates 1x20 each except for 1x10 at shldr. Tolerates static standing UB activity x 3 min 36 seconds w/ FWW and CGA, c/o mostly of lower back pain. Pt left in w/c in therapy room w/ MANAGER MACHINE upon conclusion of OT session. Activity Tolerance: Patient Tolerated treatment well Goals Short Term Goals Time Frame for Short Term Goals: 5 days (12/22/22) Short Term Goal 1: Patient will complete a commode transfer while using DME PRN with SBA. Short Term Goal 2: Patient will complete upper body bathing and/or dressing tasks while using adaptive equipment/techniques PRN with SET-UP. Short Term Goal 3: Patient will complete lower body bathing and/or dressing tasks while using adaptive equipment/techniques PRN with SBA. Short Term Goal 4: To increase activity tolerance, patient will tolerate 10 minutes of ther ex/act with no more than 2 rest breaks. Short Term Goal 5: To increase independence with grooming tasks, patient will tolerate static/dynamic standing x5 minutes with SBA and no LOB. Intermediate Goals Time Frame for Intermediate Goals : STG=LTG Other Staff Present : pt left w/ MANAGER MACHINE Time In: 1330 Time Out: 1411 Timed Coded Minutes: 41 Total Treatment Time: 41 MARIN Franco, OTR/L Date: 12/18/2022 SW and golf course manager met with pt and pt's dtr Osbaldo. Pt is alert and oriented and cooperative with assessment. Pt is a 87 year old female admitted for generalized weakness from [facility] after an ankle fracture and repair. Pt was admitted on 12/16/2022. Pt lives alone in her apartment in [place]. Pt's dtr lives close and checks on her frequently but dtr states that she is not going to be as available and the rest of the family is also struggling with time constraints. Dtr considering options with in home care as they had hired someone but she wanted paid under the table. SW will provide private duty care listing. Also discussed assisted living with pt and dtr and they will talk it over and with pt's other dtr as well. Pt has a walker, rollator, and BSC at home as well. Pt's family transports her to appointments. Pt is listed as a full code but reports that she wants to be a DNR and SW discussed with her and dtr and pt wishes to be a CCA. Pt signed form and nursing notified. DNR CCA form left for Dr zimmerman tomorrow. ACP note completed with pt. Pt reports that she does have advance directives with her dtrs listed as DPOA. Copy requested. Pt follows with Dr Goddard as PCP. Pt reports that her medications are affordable. SW provided swing bed packet and reviewed with pt and dtr. Pt signs acknowledgement of receipt and this is placed in paper chart. SW discussed swing bed IDT meetings on Wednesdays to discuss progress as well. Pt would like to go home with increased in home supports but dtr also wondering about assisted living with waiver. SW will continue to follow and assist with discharge planning. Anny ROCHAW 12/18/2022 [facility] Occupational Therapy Evaluation Date: 12/18/2022 Patient Name: Aleena Gill : 1935 (87 y.o.) Gender: female Referring Practitioner: Dr. Rodriguez Diagnosis: Generalized weakness Additional Pertinent Hx: Admitted to [facility] on 12/16/22 due to generalized weakness. According to the EMR, patient fell on , 12/07/22 and fractured her right ankle. Patient is WBAT, but is to wear walking boot during weight bearing activities. Past Medical History: Diagnosis Date Hyperlipidemia Hypertension Rheumatoid arthritis (HCC) Thyroid disease Past Surgical History: Procedure Laterality Date NECK SURGERY TUBAL LIGATION Restrictions/Precautions: Fall Risk Subjective Subjective: Patient was sitting in recliner upon OT arrival. Was agreeable to OT evaluation. Social/Functional History Lives With: Alone Type of Home: Apartment Home Layout: One level Home Access: Level entry Bathroom Equipment: Commode Home Equipment: Walker, 4 wheeled, Walker, rolling, Cane Prior Function Receives Help From: Family, flow floor attendant Ambulation Assistance: Independent (with w.walker) Transfer Assistance: Independent Additional Comments: Daughter lives nearby and checks on her daily Objective ADLs: Feeding: Setup Grooming: Contact guard assistance (in standing) UE Bathing: Supervision LE Bathing: Minimal assistance UE Dressing: Supervision LE Dressing: Minimal assistance Toileting: Contact guard assistance Transfers: Sit to stand: Minimal assistance Stand to sit: Contact guard assistance Assessment Assessment: Patient was sitting in recliner upon OT arrival. Was agreeable to OT evaluation. Completed ADLs and functional transfers as documented above (based on clinical reasoning and observation). Performed functional mobility with FWW and CGA. Is limited by RA, CTS bilaterally and burning sensation to RLE. Would benefit from OT services during hospital stay to increase independence and maximize safety with functional activities. Patient remains in recliner with call light/personal items within reach and chair alarm activated upon OT departure. Will continue to progress patient as tolerated. Goals Short Term Goals Time Frame for Short Term Goals: 5 days (12/22/22) Short Term Goal 1: Patient will complete a commode transfer while using DME PRN with SBA. Short Term Goal 2: Patient will complete upper body bathing and/or dressing tasks while using adaptive equipment/techniques PRN with SET-UP. Short Term Goal 3: Patient will complete lower body bathing and/or dressing tasks while using adaptive equipment/techniques PRN with SBA. Short Term Goal 4: To increase activity tolerance, patient will tolerate 10 minutes of ther ex/act with no more than 2 rest breaks. Short Term Goal 5: To increase independence with grooming tasks, patient will tolerate static/dynamic standing x5 minutes with SBA and no LOB. Superintendent Transportation Goals Time Frame for Superintendent Transportation Goals : STG=LTG Plan Times Per Week: 5 days Times Per Day: Once a day (1-2x/day) Time In: 924 Time Out: 952 Timed Coded Minutes: 0 Total Treatment Time: 28 Delphine Bonilla OTR/L 12/18/2022 Case Management Assessment Initial Evaluation Date/Time of Evaluation: 12/18/2022 10:47 AM Assessment Completed by: Osbaldo William RN If patient is discharged prior to next notation, then this note serves as note for discharge by case management. Patient Name: Aleena Gill Date of : 1935 Diagnosis: Weakness [R53.1] Generalized weakness [R53.1] Date / Time: 12/16/2022 12:37 AM Patient Admission Status: SKILLED IP Readmission Risk (Low < 19, Mod (19-27), High > 27): Readmission Risk Score: 11.9 Current PCP: Efrain Esparza MD PCP verified by CM? Yes (Dr. Esparza) Chart Reviewed: Yes History Provided by: Patient Patient Orientation: Alert and Oriented, Person, Place, Situation, Self Patient Cognition: Alert Hospitalization in the last 30 days (Readmission): No If yes, Readmission Assessment in CM Navigator will be completed. Advance Directives: Code Status: Full Code Patient's Primary Decision Maker is: Legal Next of Kin Discharge Planning: Patient lives with: Alone Type of Home: Apartment Primary Winch Stripper: Self Patient Support Systems include: Children, Family Members Current Financial resources: Medicare, Medicaid Current community resources: Current services prior to admission: Private Duty Homecare Current DME: Type of Home Care services: None ADLS Prior functional level: Assistance with the following:, Bathing, Dressing, Toileting, Cooking, Housework, Shopping, Mobility Current functional level: Mobility, Shopping, Housework, Cooking, Toileting, Dressing, Bathing, Assistance with the following: PT AM-PAC: OT AM-PAC: Family can provide assistance at DC: Yes Would you like Case Management to discuss the discharge plan with any other family members/significant others, and if so, who? Yes (daughter-Osbaldo Huerta) Plans to Return to Present Housing: Yes Other Identified Issues/Barriers to RETURNING to current housing: none at this time. Potential Assistance needed at discharge: Outpatient PT/OT Potential DME: Patient expects to discharge to: Apartment Plan for transportation at discharge: Financial Payor: [facility] MEDIC[facility] / Plan: [email or web address] DUAL COMPLETE / Product Type: *No Product type* / Does insurance require precert for SNF: Yes Potential assistance Purchasing Medications: No Mbez-ox-Vdhx request: [id number] - [place], [place] - [address] [facility] [phone] - F [phone] [address] [facility] [address] [id number] - [place], [place] - [address] [facility] [phone] - F [phone] [address] [facility] [id number] Notes: Factors facilitating achievement of predicted outcomes: Family support, Cooperative, and Has needed Durable Medical Equipment at home Barriers to discharge: Pain, Lower extremity weakness, and frequent falls. Additional Case Management Notes: daughter-Osbaldo at bedside, requesting information on Passport services and private duty aides, info to be provided. The Plan for Transition of Care is related to the following treatment goals of Weakness [R53.1] Generalized weakness [R53.1] IF APPLICABLE: The Patient and/or patient front office representative Aleena and her family were provided with a choice of provider and agrees with the discharge plan. [place] of choice list with basic dialogue that supports the patient's individualized plan of care/goals and shares the quality data associated with the providers was provided to: Patient Patient Human Resources Receptionist Name: The Patient and/or Patient Human Resources Receptionist Agree with the Discharge Plan? Yes Osbaldo William RN Case Management Department Physical Therapy [facility] Date: 12/18/2022 Physical Therapy Daily Note Patient Name: Aleena Gill : 1935 (87 y.o.) Pt is PROGRESSING toward goals and increased independence of mobility this treatment session Assessment Sit to Stand: Minimal Assistance, Contact guard assistance Stand to Sit: Contact guard assistance WB Status: WBAT with boot on Ambulation Surface: Level tile Device: Rolling Walker Assistance: Contact guard assistance Quality of Gait: slowed, shortened steps due to protective boot Distance: 10 f x2 Comments: slow but steady with w.walker Assessment: Patient seated up in chair upon entry to room. C/o much pain in her ankle this morning but per nurse. She states she needs to go to the bathroom. Walking boot is donned per MANAGER MACHINE. Sit to stand from chair is min/CGA. Ambulates with wheeled walker into bathroom. Continues to complain of pain in her R ankle. On/off commode with min assist. Able to complete cee care independently and also pulls pants down and up independently. Ambulates to sink to wash hands and leans excessively on counter. She is sat down on commode prior to returning to chair. Once in chair, she is able to complete seated exercises as outlined above with good tolerance. Remains in chair following with call light in reach and daughter now in room to visit with patient. Safety Devices Type of Devices: Call light within reach, Gait belt, Left in chair, Nurse notified Call light in reach, Phone in reach, Use of Gait belt, Family Present, and Left in chair Time In: 08 Time Out: 911 Timed Coded Minutes: 30 Total Treatment Time: 30 . Exercises: See Flowsheets Plan Cont Per Plan Of Care Goals Short Term Goals Time Frame for Short Term Goals: NA Superintendent Transportation Goals Time Frame for Superintendent Transportation Goals : 7 days (12/22/2022) Intermediate Goal 1: Patient to transfer sit to stand modified independent Superintendent Transportation Goal 2: Patient to transfer supine to sit and sit to supine modified independent Intermediate Goal 3: Patient to ambulate 75 ft x2 with w.walker and protective boot R Le modified independent Intermediate Goal 4: Patient to have good dynamic standing balance to complete ADLS safely Мария Leung [facility] License Number: MANAGER MACHINE Date: 12/18/2022 Hospitalist Progress Note 12/18/2022 8:03 AM Subjective: Admit Date: 12/16/2022 PCP: Efrain Esparza MD Interval History: Aleena states that overall she is doing well, pain in the right ankle is controlled most of the time but sometimes she has some burning. Appetite is good. She reports no cough, no chest pain, no shortness of breath, no nausea or vomiting. Diet: ADULT DIET; Regular; Low Fat/Low Chol/High Fiber/2 gm Na ADULT ORAL NUTRITION SUPPLEMENT; Breakfast, Lunch, Dinner; Standard High Calorie/High Protein Oral Supplement Medications: Scheduled Meds: pantoprazole 40 mg Oral QAM AC aspirin 81 mg Oral Daily atorvastatin 20 mg Oral Daily Vitamin D 5,000 Units Oral Daily DULoxetine 30 mg Oral Daily furosemide 20 mg Oral Daily gabapentin 100 mg Oral BID levothyroxine 50 mcg Oral Daily lisinopril 20 mg Oral BID metoprolol tartrate 100 mg Oral Daily multivitamin 1 tablet Oral Daily spironolactone 25 mg Oral Daily vitamin E 400 Units Oral Daily potassium chloride 10 mEq Oral Daily with breakfast enoxaparin 40 mg SubCUTAneous Daily Continuous Infusions: PRN Medications: acetaminophen, senna, oxyCODONE-acetaminophen Objective: Vitals: BP (!) 150/62 Pulse 93 Temp 97.6 F (36.4 C) (Oral) Resp 18 Ht 5' 6 (1.676 m) Wt 255 lb 15.3 oz (116.1 kg) SpO2 98% BMI 41.31 kg/m BMI: Body mass index is 41.31 kg/m . CBC: Recent Labs 12/17/22 0530 WBC 10.6 HGB 12.1 PLT 390 BMP: Recent Labs 12/17/22 0530 NA 140 K 4.2 CL 101 CO2 29 BUN 34* CREATININE 0.89 GLUCOSE 116* Physical Exam: General Appearance: alert and oriented to person, place and time, in no acute distress Cardiovascular: normal rate, regular rhythm, normal S1 and S2, 2/6 systolic murmur Pulmonary/Chest: clear to auscultation bilaterally- no wheezes, rales or rhonchi, normal air movement, no respiratory distress Abdomen: soft, non-tender, non-distended, normal bowel sounds Extremities: no cyanosis, clubbing or edema Skin: warm and dry, no rash Head: normocephalic and atraumatic Neurological: alert, oriented, normal speech, no focal findings or movement disorder noted Medical Decision Making (MDM) Data: External documents reviewed: My CXR interpretation: My EKG interpretation: Discussed with: Tests considered but not ordered: Heart score: Social Determinants of Health that impact treatment or disposition: Assessment and Plan: 1. Right ankle fracture -s/p surgical repair by Dr. Salazar at [facility], continue PT and OT, Percocet as needed for pain control 2. Generalized weakness -PT and OT 3. Diabetes mellitus type 2, diet controlled 4. Hypertension -blood pressure stable, continue lisinopril, Lopressor and Aldactone 5. Lumbar spinal stenosis with chronic low back pain -controlled gabapentin, Cymbalta 6. GERD -symptoms stable on Protonix 7. Hypothyroidism -controlled, continue levothyroxine 8. History of aortic stenosis 12. Rheumatoid arthritis -on Humira every 14 days 13. Morbid obesity 14. Hyperlipidemia -on Lipitor Differential Diagnosis: Condition is improving / unchanged / worsening: Improving Condition is a treatment goal: No Chronic condition is / is not having mild / moderate, severe exacerbation, progression or side effects of treatment: Shared decision making: Code status and discussions: Full code DVT prophylaxis: [x] Lovenox [] SCDs [] SQ Heparin [] Encourage ambulation, low risk for DVT, no chemical or mechanical prophylaxis necessary [] Already on Anticoagulation Documentation of the Current Medications in the Medical Record ( x) I have utilized all available immediate resources to obtain, update, or review the patient's current medications (including all prescriptions, lkfy-tky-chljndf products, herbals, cannabis / cannabidiol products, vitamin / mineral / dietary (nutritional) supplements). (Satisfies MIPS Performance) If Yes, Stop Here ( ) The patient is not eligible for medication reconciliation; the patient is in an emergent medical situation where delaying treatment would jeopardize the patient's health. (MIPS Performance exception / exclusion) ( ) I did not confirm, update or review the patient's current list of medications today. (Does not satisfy MIPS Performance) Advanced Care Plan (x ) I confirmed that the patient's Advanced Care Plan is present, code status documented, or surrogate decision maker is listed in the patient's medical record. ( ) The patient's advanced care plan is not present because: (select) ( ) I confirmed today that the patient does not wish or was not able to name a surrogate decision maker or provide an Advance Care Plan. ( ) Hospice care is currently being provided or has been provided this calender year. ( ) I did not confirm today the presence of an Advance Care Plan or surrogate decision maker documented within the patient's medical record. (Does not satisfy MIPS performance). Nicholas Rowan MD, MD Rounding Hospitalist eSWING BED ORIENTATION Patient Name: Aleena Gill : 1935 Gender: female Diagnosis: Weakness [R53.1] Generalized weakness [R53.1] [x] Goal is to provide you with very good care [x] Insurance and Financial Responsibilities Went over co-pays and benefits. No questions at this time [x] Changes to Expect - Safely encourage you to learn to care for yourself - Frequency of Doctor's Visits - Family Training Likely [x] Visiting Hours: 11:00am - 8:30 pm (or by special arrangement) [x] [facility] [x] Swing Bed Team Meetings Family encouraged to attend [x] Clothing Bring what you normally wear [x] Prevention of Falls Put call light on, and wait until OK'd to get up on your own. [x] Therapy Expectations Do your best to participate [x] Advanced Directives [] Pt has advanced directives and we have a copy on file [x] Pt has advanced directives and we do not have a copy on file, billing services manager notified and will follow up. [] Pt does not have advanced directives. [x] Educated on mail policy Address provided for direct to hospital service Orientation Completed and agreed upon with Aleena Gill and/or Family Members SWINGBED PATIENT ACTIVITY PROGRAM ASSESSMENT Patient Name: Aleena Gill : 1935 Gender: female Diagnosis: Weakness [R53.1] Generalized weakness [R53.1] Ability to read or write? [x] Yes [] No Ability to hear? [x] Yes [] No Is patient confused? [] Yes [x] No Enter Codes in Boxes Coding: Very Important Somewhat important Not very important Not important at all Important but can t do or no choice No response or non-responsive 1 A. How important is it to you to have books, newspapers, and magazines to read? 2 B. How important is it to you to listen to music you like? 3 C. How important is it to you to be around animals such as pets? 1 D. How important is it to you to keep up with the news? 1 E. How important is it to you to do things with groups of people? 1 F. How important is it to you to do your favorite activities? 1 G. How important is it to you to go outside to get fresh air when the weather is good? 1 H. How important is it to you to participate in yazidi services or practices? Activity Care Plan: Will participate in activity programs of choice daily with no decline throughout SBU stay. BANKING MANAGEMENT CONSULTING MANAGER S SIGNATURE: Amanda Marinelli Date: 12/21/2022 Comprehensive Nutrition Assessment Type and Reason for Visit: Initial, Positive Nutrition Screen Nutrition Recommendations/Plan: Encourage oral intakes Encourage use of Ensure (prefers strawberry) Malnutrition Assessment: Malnutrition Status: At risk for malnutrition (Comment) (12/18/22 5732) Context: Acute Illness Findings of the 6 clinical characteristics of malnutrition: Energy Intake: Mild decrease in energy intake (Comment) (acutely) Weight Loss: No significant weight loss Body Fat Loss: No significant body fat loss Muscle Mass Loss: No significant muscle mass loss Fluid Accumulation: Mild Extremities Animal Trainer Supervisor Strength: Not Performed Nutrition Assessment: Increased nutrient needs r/t acute injury or trauma, AEB post op right ankle for fracture. Resolved nausea but not really too hungry. Eats only twice daily at home with MOW and supper. Doesn't really like nutrition supplement but does report strawberry better for her than other flavors. Had reported weight losses on admission screening, which is not evident in her weight history. Nutrition Related Findings: Wound Type: Surgical Incision Current Nutrition Intake & Therapies: Average Meal Intake: 51-75% Average Supplements Intake: Unable to assess (no recorded) ADULT DIET; Regular; Low Fat/Low Chol/High Fiber/2 gm Na ADULT ORAL NUTRITION SUPPLEMENT; Breakfast, Lunch, Dinner; Standard High Calorie/High Protein Oral Supplement Anthropometric Measures: Height: 5' 6 (167.6 cm) [place] Body Weight (IBW): 130 lbs (59 kg) Admission Body Weight: 253 lb 8.5 oz (115 kg) Current Body Weight: 255 lb 15.3 oz (116.1 kg), 196.9 % IBW. Weight Source: Bed Scale Current BMI (kg/m2): 41.3 Usual Body Weight: 250 lb (113.4 kg) % Weight Change (Calculated): 2.4 Weight Adjustment For: No Adjustment BMI Categories: Obese Class 3 (BMI 40.0 or greater) Estimated Daily Nutrient Needs: Energy Requirements Based On: Kcal/kg Weight Used for Energy Requirements: Current Energy (kcal/day): 9518-1197 (11-15) Weight Used for Protein Requirements: [place] Protein (g/day): 63-73 (1.2-1.4) Method Used for Fluid Requirements: 1 ml/kcal Fluid (ml/day): 1800 Nutrition Diagnosis: Increased nutrient needs related to acute injury/trauma as evidenced by wounds Lab Results Component Value Date NA 140 12/17/2022 K 4.2 12/17/2022 CL 101 12/17/2022 CO2 29 12/17/2022 BUN 34 (H) 12/17/2022 CREATININE 0.89 12/17/2022 GLUCOSE 116 (H) 12/17/2022 CALCIUM 9.6 12/17/2022 PROT 7.0 10/31/2022 LABALBU 3.7 10/31/2022 BILITOT 0.6 10/31/2022 ALKPHOS 116 (H) 10/31/2022 AST 16 10/31/2022 ALT 15 10/31/2022 LABGLOM >60 12/17/2022 GFRAA >60 08/08/2022 No results found for: LABA1C Lab Results Component Value Date VITD25 40.6 08/08/2022 Nutrition Interventions: Food and/or Nutrient Delivery: Continue Current Diet, Continue Oral Nutrition Supplement Nutrition Education/Counseling: Education initiated Coordination of Nutrition Care: Continue to monitor while inpatient Plan of Care discussed with: patient Goals: Goals: Meet at least 75% of estimated needs Nutrition Monitoring and Evaluation: Food/Nutrient Intake Outcomes: Supplement Intake, Food and Nutrient Intake Physical Signs/Symptoms Outcomes: Biochemical Data, Weight Discharge Planning: Sushant Cain RD, FEROZ Contact: [id number] Patient continues to be monitored closely though out the night. She only complained of 10/10 pain in her foot. Educated patient on not waiting until the pain is a 10 to tell us you have pain. Patient verbalizes understanding. Pain medication given and ice placed on the foot and nurse will continue to monitor While completing patient shift assessment this nurse assessed patient behaviors. Patient is withdrawn and appears sad. Pt would only answer questions with one word answers. When I asked the patient what was wrong she became very tearful. Patient states It's hard getting older and I can't do this . I asked the patient if she was feeling hopeless and she said yes. After further conversation I decided to move to patient closer to the nurses station. This was ok'd with registration and the nursing bleach supervisor. Educated the patient on patient safety and emphasized that we are here to help. Moving patient to a room closer to the nurses station for closer monitoring and the benefit of a hercules bed. Patient is agreeable with switching rooms from 270 to 258. This information with be shared with the Attending provider in the morning. Physical Therapy [facility] Date: 12/17/2022 Physical Therapy Daily Note Patient Name: Aleena Gill : 1935 (87 y.o.) Pt is PROGRESSING toward goals and increased independence of mobility this treatment session Assessment Supine to Sit: Supervision Sit to Stand: Minimal Assistance Stand to Sit: Contact guard assistance WB Status: WBAT with boot on Ambulation Surface: Level tile Device: Rolling Walker Assistance: Contact guard assistance Quality of Gait: slowed, shortened steps due to protective boot Distance: 15 ftx2 Comments: sow but steady with w.walker Assessment: Patient in bed upon arrival and is c/o jules wrap being too tight behind her knee. Nurse is notified and rewraps it. Supine to sit is supervision. Sitting balance at edge of bed is good. Sit to stand from bed is min assist. Ambulates into bathroom with wheeled walker and walking boot on R LE. On/off commode with min assist. Patient reaches for grab bar near [facility] Independet with cee care. Standing balance to pull pants up is good. Demonstrates good standing balance to wash hands. Ambulates to curtain and back to chair following. Has forward flexed posture and c/o back pain. Walker is raised one notch with patient to decide if this is good next time she is up. Nurse is also made aware of this. While in chair she completes seated exercises as outlined above with good tolerance. Remains up in chair with call light in reach. Safety Devices Type of Devices: Bed alarm in place, Call light within reach, Gait belt, Left in chair, Nurse notified Call light in reach, Phone in reach, Use of Gait belt, Nurse Notified, and Left in chair Time In: 916 Time Out: 948 Timed Coded Minutes: 32 Total Treatment Time: 32 Exercises: See Flowsheets Plan Cont Per Plan Of Care Goals Short Term Goals Time Frame for Short Term Goals: NA Superintendent Transportation Goals Time Frame for Intermediate Goals : 7 days (12/22/2022) Superintendent Transportation Goal 1: Patient to transfer sit to stand modified independent Intermediate Goal 2: Patient to transfer supine to sit and sit to supine modified independent Superintendent Transportation Goal 3: Patient to ambulate 75 ft x2 with w.walker and protective boot R Le modified independent Intermediate Goal 4: Patient to have good dynamic standing balance to complete ADLS safely Мария Leung [facility] Therapy License Number: MANAGER MACHINE Date: 12/17/2022 Patient reports no longer having upset stomach, nausea, or diarrhea. Previous nurse (MAUREEN Khan) reports patient c/o nausea and not feeling well after 1800. Patient puts production solderer light to use the restroom. Patient states she had two medium loose bowel movements and states she thinks it was from something she ate. Patient assisted back to bed and states she would like to rest. Told patient to report any more nausea or diarrhea. Pt c/o of pain after ambulation to BR. SHe reports it's burning and points to anterior area of ankle PRN med given.Lower leg is red.sock removed, leg washed dried and jules bandage applied to lower rt leg and boot reapplied. Ice pack placed on lateral aspect of rt ankle. Leg elevated. Lunch aserved. Will continue to monitor. [facility] Physical Therapy Evaluation Date: 12/16/2022 Patient Name: Aleena Gill : 1935 (87 y.o.) Gender: female Referring Practitioner: Dr. Rodriguez Diagnosis: Right ankle Additional Pertinent Hx: Patient had fall at home and fx R ankle.Had ankle surgery yesterday at [facility] and arrived in swingbed late last night. Is WBAT with boot. Past Medical History: Diagnosis Date Hyperlipidemia Hypertension Rheumatoid arthritis (HCC) Thyroid disease Past Surgical History: Procedure Laterality Date NECK SURGERY TUBAL LIGATION Restrictions Restrictions/Precautions: Fall Risk Subjective Pain Level: 2 Orientation Overall Orientation Status: Within Normal Limits Home Living Type of Home: House Home Layout: One level Home Access: Level entry Social/Functional History Lives With: Alone Type of Home: House Home Layout: One level Home Access: Level entry Ambulation Assistance: Independent (with w.walker) Transfer Assistance: Independent Active Bread Icer: Yes Additional Comments: Daughter lives nearby and checks on her daily Prior Level of Function Additional Comments: Daughter lives nearby and checks on her daily Prior Function Ambulation Assistance: Independent (with w.walker) Transfer Assistance: Independent Additional Comments: Daughter lives nearby and checks on her daily Objective Strength RLE Strength RLE: Exception Comment: except R ankle not assessed due to surgery R Hip Flexion: 4/5 R Knee Extension: 4-/5 Strength LLE Strength LLE: Exception L Hip Flexion: 4/5 L Knee Extension: 4/5 L Ankle Dorsiflexion: 4+/5 L Ankle Plantar Flexion: 4/5 Bed mobility Supine to Sit: Minimal assistance Sit to Stand: Minimal Assistance Stand to Sit: Contact guard assistance Ambulation Surface: Level tile Device: Rolling Walker Assistance: Contact guard assistance Quality of Gait: slowed, shortened steps due to protective boot Distance: 25 ft x1 Comments: sow but steady with w.walker Balance Sitting - Static: Good Sitting - Dynamic: Good Standing - Static: Fair Standing - Dynamic: Poor Assessment Chart Reviewed: Yes Assessment: Patient alert and oriented x3. Her daughter was present during evaluation. Patient c/o R ankle pain, but refused to rate pain on 0-10 scale. Completed sit to stand with min assist. Check of balance showed poor dynamic standing balance. Patient reports she used w.walker prior to fall due to decrease inher balance. Patient ambulated with w.walker 25 ftx1 with WBAT and protective boot on R LE with CGA. Patient returned to sit up in chair with corey beel after session. Plan for therex, balance training, transfers and gait. Therapy Prognosis: Good Plan Frequency: 1-2x/day Daily M-F, 1x/day Sat-Sun Duration: 7 daysCurrent Treatment Recommendations: Strengthening, Balance training, Functional mobility training, Transfer training, Gait training, Neuromuscular re-education Goals Short Term Goals Time Frame for Short Term Goals: NA Superintendent Transportation Goals Time Frame for Intermediate Goals : 7 days Superintendent Transportation Goal 1: Patient to transfer sit to stand modified independent Intermediate Goal 2: Patient to transfer supine to sit and sit to supine modified independent Superintendent Transportation Goal 3: Patient to ambulate 75 ft x2 with w.walker and protective boot R Le modified independent Superintendent Transportation Goal 4: Patient to have good dynamic standing balance to complete ADLS safely PT Individual Minutes Time In: 1034 Time Out: 1102 Minutes: 28 Kay Alcala, PT, PT 12/16/2022 Family member brings in patient's home supplied Humira. Med is in original box with script label adhered to box. Per bleach supervisor to administer as patient is day late on receiving dose which she takes every two weeks. MEDICAL NUTRITION THERAPY - CONSULT/POSITIVE SCREEN ACKNOWLEDGEMENT Acknowledgement of consult/positive nutrition screening regarding MST 2 correctional officer captain. Regular low fat/low cholestenol, high fiber 2 gm sodium diet order currently on chart. Note weight history below. Labs reviewed. Will add 4 oz ensure enlive TID with meals for healing needs of ankle fracture, weight loss, decreased PO, and f/u with further recommendations as indicated. Wt Readings from Last 10 Encounters: 12/16/22 253 lb 8.5 oz (115 kg) 12/07/22 270 lb (122.5 kg) 10/31/22 250 lb (113.4 kg) 10/31/22 255 lb (115.7 kg) 09/14/22 255 lb (115.7 kg) 10/02/21 255 lb (115.7 kg) 09/19/21 255 lb (115.7 kg) 06/11/21 250 lb (113.4 kg) 03/08/21 250 lb (113.4 kg) 09/20/20 250 lb (113.4 kg) Marti Simpson RDN, LD 12/16/2022 10:[address] Rodriguez about Humira Injection. Dr. Rodriguez states we can not provide this medication and that the patient will need to have someone bring it in. Informed patient of this and she said she will have someone bring it in. documented in this encounter [facility]: 12-26-2022 Hospital Discharge instructions Андрей Rodriguez MD - 12/26/2022 8:55 AM EST Discharge Instructions Admission Date: 12/16/2022 Discharge Date: 12/26/22 Disposition: Home Activity: As tolerated Diet: General Discharge Instructions: Resume previous home medications (Lisinopril, Toprol XL, and Lasix discontinued). Lopressor 100 mg daily started. Take Percocet 5/325: 1 tablet by mouth every 6 hours as needed for pain. Gabapentin 100 mg increased to two times a day. Activity: As tolerated with assistance. PT / OT daily. Diet: General Follow up with Efrain Esparza MD after discharge from [facility]. Dafne Avalos RN - 12/22/2022 1:23 PM EST Continuity of Care Form Patient Name: Aleena Gill : 1935 Admit date: 12/16/2022 Discharge date: 12/26/2022 Code Status Order: DNR-CCA Advance Directives: Admitting Physician: Андрей Rodriguez MD PCP: Efrain Esparza MD Discharging Nurse: Dafne REDDY Discharging Hospital Unit/Room#: 0258/0258-01 Discharging Unit Emergency Contact: Extended Emergency Contact Information Primary Emergency Contact: Merari Campbell [facility] Mobile Relation: Child Secondary Emergency Contact: DEANNASTANTON Mobile Relation: Child Preferred language: Niuean Nitroglycerin Distributor needed? 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 Edema R60.9 Gastroesophageal reflux disease K21.9 Hallucinations R44.3 Hoarseness R49.0 Hyperglycemia R73.9 Hypothyroidism E03.9 Impacted cerumen H61.20 Mixed hyperlipidemia E78.2 Morbid obesity (HCC) E66.01 Numbness of hand R20.0 Pain of left lower extremity M79.605 Rheumatoid arthritis ([facility]) M06.9 Spinal stenosis of lumbar region M48.061 Type 2 diabetes mellitus ([facility]) E11.9 Unsteadiness on feet R26.81 Generalized weakness R53.1 Isolation/Infection: Isolation No Isolation Patient Infection Status None to display Nurse Assessment: Last Vital Signs: BP 131/74 Pulse (!) 103 Temp 97.8 F (36.6 C) (Oral) Resp 18 Ht 5' 6 (1.676 m) Wt 256 lb (116.1 kg) SpO2 95% BMI 41.32 kg/m Last documented pain score (0-10 scale): Pain Level: 1 Last Weight: Wt Readings from Last 1 Encounters: 12/19/22 256 lb (116.1 kg) Mental Status: oriented, alert, and confusion noted upon awakening IV Access: - None Nursing Mobility/ADLs: Walking Assisted Transfer Assisted Bathing Assisted Dressing Assisted Toileting Assisted Feeding Independent Library Clerk Talking Books Independent Med Delivery whole Wound Care Documentation and Therapy: Elimination: Continence: Bowel: Yes Bladder: No, Intermittent Urinary Catheter: None Colostomy/Ileostomy/Ileal Conduit: No Date of Last BM: 12/26/2022 Intake/Output Summary (Last 24 hours) at 12/22/2022 1322 Last data filed at 12/22/2022 1239 Gross per 24 hour Intake 540 ml Output -- Net 540 ml I/O last 3 completed shifts: In: 360 [P.O.:360] Out: - 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 Ventilator: - No ventilator support Rehab Therapies: Physical Therapy and Occupational Therapy Weight Bearing Status/Restrictions: No weight bearing restrictions, Full weight bearing to R foot with R walking boot on. Other Medical Equipment (for information only, NOT a DME order): walker, R walking boot Other Treatments: Patient's personal belongings (please select all that are sent with patient): None RN SIGNATURE: CASE MANAGEMENT/SOCIAL WORK SECTION Inpatient Status Date: 12/16/2022 skilled care Readmission Risk Assessment Score: Readmission Risk Risk of Unplanned Readmission: 12 Discharging to Facility/ Agency Name: [facility] Address: [address] [place] [address] Dialysis Facility (if applicable) Name: Address: Dialysis Schedule: Phone: Fax: Synthetic Filament Spinner/Guest Service Representative signature: PHYSICIAN SECTION Prognosis: Good Condition at Discharge: Stable Rehab Potential (if transferring to Rehab): Good Recommended Labs or Other Treatments After Discharge: Physician Certification: I certify the above information and transfer of Aleena Gill is necessary for the continuing treatment of the diagnosis listed and that she requires [facility] Facility for greater 30 days. Update Admission H&P: No change in H&P PHYSICIAN SIGNATURE: The following attachments cannot be sent through Care Everywhere.Fatigue (Niuean)Weakness: Generalized (Niuean)Muscle Conditioning: Exercises (Niuean)documented in this encounter [facility] Phone: 12-15-2022 Note Admission and Discha rge Information Admitting Physician - David WHITEHEAD MD Admitting Diagnoses: Discharge Diagnoses 1. Fracture of ankle, 12/12/2022 2. Weakness, 12/12/2022 3. At risk for fall due to comorbid condition, 12/12/2022 4. Aortic stenosis, 12/12/2022 5. HTN (hypertension), benign, 12/12/2022 6. Hyperlipidemia, mixed, 12/12/2022 7. Type 2 diabetes mellitus with hyperlipidemia, 12/12/2022 8. Hypothyroid, 12/12/2022 9. Rheumatoid arthritis, 12/12/2022 10. Spinal stenosis, lumbar, 12/12/2022 11. Acid reflux, 12/12/2022 12. Morbid obesity, 12/13/2022 13. On deep vein thrombosis (DVT) prophylaxis, 12/14/2022 Please refer to my progress note for in-depth information regarding each individual diagnosis Procedure History Injection of hip using fluoroscopic guidance (11/23/2021), Injection of hip using fluoroscopic guidance (08/08/2021), Injection of facet joint using fluoroscopic guidance (11/06/2016), right cataract extraction with intraocular lens placement (03/08/2015), left cataract extraction with intraocular lens placement (01/18/2015), neck surgery (11/26/2005), Tubal ligation. Hospital Course 87-year-old female with PMH of aortic stenosis, HTN, HLD, NIDDM type II, hypothyroidism, RA, lumbar spinal stenosis, GERD, morbid obesity. -Pt. presented to the ED after sliding out of bed and reinjuring her right ankle and has difficulty with self-care at home. -12/07/2022: R ankle fracture secondary to mechanical fall at home - seen at [facility] -12/07: Right ankle x-ray (per [facility] record review) acute closed distal fibular fracture -12/09: Patient slid out of bed re-injuring her ankle -12/12: Per pt.'s son pt. saw Dr. Salazar in the office - per family recs wear boot when wt. bearing -Per ED note patient was placed in orthopedic boot with patient to follow-up with orthopedics as an outpatient, 12/14: repeat R ankle/foot xray: -Right Ankle x-ray: Healing fractures of the distal fibula and medial malleolus -Right foot x-ray: No osseous abnormality -Pimary and repeat X-ray findings were discussed with Dr. Salazar via phone., he states to continue walking boot when weightbearing, follow-up in orthopedic office for ongoing management. -Patient with ongoing generalized weakness, high fall risk in the setting of right walking boot, will transition to SNF for rehabilitation. -Patient states that all admitting symptoms have significantly improved and/or resolved. Patient is eating and drinking without complaints, denies being SOB, chest pain, pressure, palpitations or difficulty with voiding. Patient is eager to be discharged to SNF. --Other chronic medical conditions as outlined in note. Refer to d/c plan below: -Case reviewed and discussed with Dr. Fleming who is in agreement with current d/c plan. Case will be reviewed and discussed with PCP or production solderer MD once the hospital fork truck operator is able to reach him/her. I spent a lengthy amount of time with the patient and/or family reviewing discharge instructions, medications, medication use. Patient to follow-up with PCP and specialty providers as scheduled on discharge. Patient being discharged in medically/hemodynamically stable cond. with instructions to return to the hospital if symptoms worsen or recur. This report was transcribed using voice recognition software. Every effort was made to ensure accuracy, however, inadvertently computerized airport operations specialist mistakes may be present. Significant Findings No qualifying data available. Services Consulted Inspector Subassemblies Consult - Completed -- 12/12/22 22:15:00 RAFAL, DC planning for placement, Other Physical Exam Vitals & Measurements T: 36.7 ?C(Axillary) TMIN: 36.3 ?C(Axillary) TMAX: 36.7 ?C(Axillary) HR: 66(Monitored) RR: 16 BP: 112/69 SpO2: 97% General: Calm, able to communicate needs, Head: Normocephalic/atraumatic Eyes: Pupils equal, round, Conjunctivae and sclerae normal, HEENT: Mucous membrane moist. Tongue normal Neck: Trachea midline, neck supple, Chest: No chest wall deformity, no chest wall tenderness Lungs: CTA nixon, diminished post. bases likely 2/2 body habitus Cardio: Normal rate, apical is regular, mild non pitting edema in R ankle - leg in dependent position Pulses: Normal capillary refill Abdomen: Soft, non-distended, non-tender, normal BS Musculoskeletal: No deformity or scoliosis noted. Integumentary: Warm, dry, ecchymotic areas noted to RLE and ankle, swelling noted to right ankle Extremity: No clubbing, Neurologic: Alert, oriented x4, follows commands, Mental status: Pleasant & cooperative, approp. affect Laboratory Results Automated Diff (12/12/2022) Neutro Auto - 63.7 % Lymph Auto - 24.6 % Archer Auto - 7.6 % Eos Auto - 3.7 % Basophil Auto - 0.4 % Neutro Absolute - 6.5 E9/L Lymph Absolute - 2.5 E9/L Archer Absolute - 0.8 E9/L Eos Absolute - 0.4 E9/L Basophil Absolute - 0.0 E9/L BMP (12/12/2022) Glucose Lvl - 114 mg/dL BUN - 34 mg/dL Cre (more content not included)... [facility] Comment on above: Result Comment: Elec tronically Signed By: Vero COELHO\.br\Date and Time Signed: 12/15/22 15:08 EST\.br\Electronically Co-Signed By: CRISTA BECERRA, Candy\.br\Date and Time Co-Signed: 12/15/22 15:10 EST 12-15-2022 Hospital Discharge instructions Patient Education 12/15/2022 15:05:43 Ankle Fracture, [id number] Ankle Fracture The ankle joint is made up of the lower (distal) sections of your lower leg bones(tibia and fibula) along with a bone in your foot (talus). An ankle fracture is a break in one, two, or all three of these sections of bone. Follow these instructions at home: If you have a splint: Wear the splint as told by your doctor. Take it off only as told by your doctor. Loosen the splint if your toes tingle, become numb, or turn cold and blue. Keep the splint clean. If the splint is not waterproof: ?Do not let it get wet. ?Cover it with a watertight covering when you take a bath or a shower. If you have a cast: Do not stick anything inside the cast to scratch your skin. Doing that increases your risk of infection. Check the skin around the cast every day. Tell your doctor about any concerns. You may put lotion on dry skin around the edges of the cast. Do not put lotion on the skin underneath the cast. Keep the cast clean. If the cast is not waterproof: ?Do not let it get wet. ?Cover it with a watertight covering when you take a bath or a shower. Managing pain, stiffness, and swelling If directed, put ice on the injured area: ?If you have a removable splint, remove it as told by your doctor. ?Put ice in a plastic bag. ?Place a towel between your skin and the bag. ?Leave the ice on for 20 minutes, 2 3 times a day. Move your toes often. This prevents stiffness and lessens swelling. Raise (elevate) the injured area above the level of your heart while you are sitting or lying down. General instructions Do not use the injured limb to support your body weight until your doctor says that you can. Use crutches as told by your doctor. Take [id number]-fyc-[id number] and prescription medicines only as told by your doctor. Ask your doctor when it is safe to drive if you have a cast or splint. Do exercises as told by your doctor. Do not use any products that contain nicotine or tobacco, such as cigarettes and e-cigarettes. These can delay bone healing. If you need help quitting, ask your doctor. Keep all follow-up visits as told by your doctor. This is important. Contact a doctor if: Your pain or swelling gets worse. Your pain or swelling does not get better when you rest or take medicine. Get help right away if: Your cast gets damaged. You continue to have very bad pain. You have new pain or swelling. Your skin or toes below the injured ankle: ?Turn blue or dia. ?Feel cold or numb. ?Lose sensitivity to touch. Summary An ankle fracture is a break in one, two, or all three of the bones in your lower leg and lower foot. If you have a splint, wear it as told by your health care provider. Keep it clean and dry. If you have a cast, do not stick anything inside the cast to scratch your skin. This can cause infection. Use ice, take medicines, raise your foot, and avoid tobacco and nicotine products. These steps will lessen pain and swelling and speed up healing. This information is not intended to replace advice given to you by your health care provider. Make sure you discuss any questions you have with your health care provider. Document Released: 09/09/2010 Document Revised: 10/25/2018 Document Reviewed: 12/17/2017 [employer] Patient Education 2020 [employer] Follow Up Care 12/12/2022 19:02:47 With:Efrain ESPARZA Address: [address] [place] [address]- Business (1) When: Unknown Comments:Call for followup appointment when d/c from [facility] With:Richie Salazar Address: [address] [place] [phone]- Business (1) When:5 to 7 days [facility] 12-15-2022 Evaluation + Plan note Extrac jorge from: Title:Discharge Note Author:MCHUGH BOSSMAN-BC, Re ramone Date:12/15/22 Hemodynamically stable condi tion Discharge To, Anticipated II - [facility]dc Unit Discharge Status: Improved Discharge Instructions Given: To patient Discharge disposition: Home Prescriptions reviewed with Patient 44 minutes spent in discharge time with patient, collaborating MD, nursing staff, CRM, Prescriptions acetaminophen-oxycodone 325 mg-5 mg Tab, 1 tab(s), Oral, q6hr, PRN atorvastatin 20 mg Tab, 20 mg= 1 tab(s), Oral, Once a day (at bedtime), 3 refills Compression stockings, 20-30 mmHg, See Instructions, 1 refills Home acetaminophen 325 mg Tab, 650 mg= 2 tab(s), Oral, q6hr, PRN Aldactone 25 mg Tab, 25 mg= 1 tab(s), Oral, Daily aspirin 81 mg Oral EC Tab, 81 mg= 1 tab(s), Oral, Daily duloxetine, 30 mg, Oral, Daily furosemide 20 mg Tab, 20 mg= 1 tab(s), Oral, Daily gabapentin 100 mg Cap, 100 mg= 1 cap(s), Oral, BID Humira 40 mg/0.8 mL subcutaneous kit, 40 mg= 0.8 mL, SubCutaneous levothyroxine 50 mcg (0.05 mg) Tab, 50 mcg= 1 tab(s), Oral, Daily lisinopril 20 mg Tab, 20 mg= 1 tab(s), Oral, BID metoprolol 100 mg ER Tab, 200 mg= 2 tab(s), Oral, Daily multivitamin with minerals, 1 tab, Oral, Daily Pantoprazole [address] Tab, 40 mg= 1 tab(s), Oral, Daily potassium chloride 10 mEq Cap-ER, 10 mEq= 1 cap(s), Oral, Daily Senokot 8.6 mg Tab, 17.2 mg= 2 tab(s), Oral, BID, PRN Vitamin D3 5000 intl units oral capsule, 5000 International_Unit= 1 cap(s), Oral, Daily vitamin E, 400 International_Unit, Oral, Daily With When Contact Information Efrain ESPARZA [facility] [address] [facility], [place] [address]- Business (1) Additional Instructions: Call for followup appointment when d/c from SNF Richie Salazar Within 5 to 7 days [address] [place] [address]- Business (1) Additional Instructions: Ankle Fracture, [id number] Extracted from: Title:APSO Note Author:JEISON WALLIS, Vero Coreas ate:12/15/22 1. Fracture of ankle (S82.89 9A: Other fracture of unspecified lower leg, initial encounter for closed fracture) 12/07/2022: R ankle fracture secondary to mechanical fall at home -12/07: Right ankle x-ray (at [facility]) acute closed distal fibular fracture -12/09: Patient slid out of bed re-injuring her ankle -12/12: Per pt.'s son pt. saw Dr. Salazar in the office - per family rortho ecs wear boot when wt. bearing -Per ED note patient was placed in orthopedic boot with patient to follow-up with orthopedics as an outpatient, 12/14: repeat R ankle/foot xray: -Right Ankle x-ray: Healing fractures of the distal fibula and medial malleolus -Right foot x-ray: No osseous abnormality -X-ray findings were discussed with Dr. Salazar via phone 12/14., he states no change to POC, continue walking boot when weightbearing, follow-up in orthopedic office for ongoing management. -PT/OT - SNF -CRM to arrange -Pain mgt 2. Weakness (R53.1: Weakness) Generalized -Decline in physical ability to care for herself since reinjury of her ankle -Awaiting SNF 3. At risk for fall due to comorbid condition (Z91.81: History of falling) See above 4. Aortic stenosis (I35.0: Nonrheumatic aortic (valve) stenosis) Asymptomatic 5. HTN (hypertension), benign (I10: Essential (primary) hypertension) -Furosemide, lisinopril, metoprolol, spironolactone 6. Hyperlipidemia, mixed (E78.2: Mixed hyperlipidemia) -Atorvastatin 7. Type 2 diabetes mellitus with hyperlipidemia (E11.69: Type 2 diabetes mellitus with other specified complication) Accuchecks AC/HS w/ SSI prn -A1c - 6.2% in 09/2022 -Home regimen; Diet controlled -ADA diet -Hypoglycemic protocol 8. Hypothyroid (E03.9: Hypothyroidism, unspecified) -Levothyroxine 9. Rheumatoid arthritis (M06.9: Rheumatoid arthritis, unspecified) -Humira -> non-formulary 10. 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 Acid reflux (K21.9: Gastro-esophageal reflux disease without esophagitis) -PPI 12. Morbid obesity (E66.01: Morbid (severe) obesity due to excess calories) BMI: 41 -Educated on need for lifestyle modifications with goal of weight loss as obesity has a negative impact on co-morbid conditions. 13. On deep vein thrombosis (DVT) prophylaxis (Z79.899: Other long term care pharmacist (current) drug therapy) -Lovenox Orders: XR Ankle 3+ Views Right XR Foot 3+ Views Right -Plan discussed w/ patient, nursing staff and CRM. -Disposition: Patient is awaiting pre-CERT This report was transcribed using voice recognition software. Every effort was made to ensure accuracy, however, inadvertently computerized airport operations specialist mistakes may be present. Extracted from: Title:APSO Note Author:Roseann PADILLA Date:12/13/22 PLAN: 1. Fracture of ankle (S82.899A: Other fracture of unspecified lower leg, initial encounter for closed fracture) Prior ankle fracture on 12/07/2022 after a mechanical fall at home patient slid out of bed again on 12/09/2022 and squad with 3 semiconductor equipment technician had to assist patient to get off the floor. Patient has progressively weakened since ankle fracture. Per right ankle x-ray at [facility] showed acute closed distal fibular fracture. Was nonsurgical per ED note and was placed in orthopedic boot with patient to follow outpatient orthopedics. Patient to use orthopedic boot when up with walker. Patient lives alone Percocet PT OT evaluation Social service consult ? pt referred to SNF by PCP ??? 2. Weakness (R53.1: Weakness) As above 3. At risk for fall due to comorbid condition (Z91.81: History of falling) As above 4. HTN (hypertension), benign (I10: Essential (primary) hypertension) Metoprolol, lisinopril Hold spironolactone and Lasix for now 6. Type 2 diabetes mellitus with hyperlipidemia (E11.69: Type 2 diabetes mellitus with other specified complication) Accu-Chek ACH S Insulin sliding scale 7. Hyperlipidemia, mixed (E78.2: Mixed hyperlipidemia) Statin 8. Hypothyroid (E03.9: Hypothyroidism, unspecified) Synthroid 9. Rheumatoid arthritis (M06.9: Rheumatoid arthritis, unspecified) Stable 10. Spinal stenosis, lumbar (M48.061: Spinal stenosis, lumbar region without neurogenic claudication) With neuropathy Gabapentin, Cymbalta PT OT evaluation 11. Aortic stenosis (I35.0: Nonrheumatic aortic (valve) stenosis) Stable 12. Acid reflux (K21.9: Gastro-esophageal reflux disease without esophagitis) PPI 11. Morbid obesity (E66.01: Morbid (severe) obesity due to excess calories) BMI 41.77 Counseled on diet, exercise, weight loss and lifestyle modifications. Extracted from: Title:Admission H & P Author:CHARLEY BECERRA, David Koenig te:12/12/22 1. Fracture of ankle (S82.89 9A: Other fracture of unspecified lower leg, initial encounter for closed fracture) 23 observation Patient will not require more than 2 nights in the hospital Percocet 1 to 2 tablets every 4 hours for pain as needed PT OT evaluation Social service consult 2. Weakness (R53.1: Weakness) As above 3. At risk for fall due to comorbid condition (Z91.81: History of falling) As above 4. Obesity (E66.9: Obesity, unspecified) Lifestyle modification 5. HTN (hypertension), benign (I10: Essential (primary) hypertension) Resume lisinopril 6. Type 2 diabetes mellitus with hyperlipidemia (E11.69: Type 2 diabetes mellitus with other specified complication) Accu-Chek ACH S Insulin sliding scale 7. Hyperlipidemia, mixed (E78.2: Mixed hyperlipidemia) Resume Lipitor 8. Hypothyroid (E03.9: Hypothyroidism, unspecified) Resume Synthroid 9. Rheumatoid arthritis (M06.9: Rheumatoid arthritis, unspecified) PT OT evaluation 10. Spinal stenosis, lumbar (M48.061: Spinal stenosis, lumbar region without neurogenic claudication) PT OT evaluation 11. Aortic stenosis (I35.0: Nonrheumatic aortic (valve) stenosis) Stable 12. Acid reflux (K21.9: Gastro-esophageal reflux disease without esophagitis) PPI Social service consult Extracted from: Title:ED Note Author:Julio hPam DOJossy Date :12/12/22 Generalized weakness (R53.1: Weakness) Hypertension (I10: Essential (primary) hypertension) Orders: acetaminophen, 650 mg = 2 tab(s), Tab, Oral, Once, Stop date 12/12/22 21:41:00 EST, STAT, Start date 12/12/22 21:41:00 EST, 12/12/22 21:41:00 EST Automated Diff Basic Metabolic Panel CBC w/ Auto Diff ED Physician consult Hospitalist for continued care Influenza A&B Ag Rapid COVID Antigen ([facility]) Saline Lock Insert Troponin 0 Hr. UA With Cult Reflex XR Chest Single View Future Appointments Appointment Date:01/15/2023 03:00:00 PM Scheduled Provider:Efrain ESPARZA MD Location:[facility] [place] Appointment Type: Open Diagnostic Tests Pending * Electrolyte Panel 12/16/22 [facility]01-20-2023 NoteCRM entered the room to discuss dc planning. PCP, DME and insurance discussed. Patient is alert andinvolved in plan of care. Contact information provided and whiteboard updated. Pt has been acceptedat [facility]. Pt will be able to transport via [employer] van, if this can be billed through her Medicaid. If not, family is willing to be billed transport fee. Precert pending. Spoke to kandis Williamson at bedside. Ant dc TBD. CRM to follow.[facility] HospitalComment on above:Result Comment: Electronically Signed By: Felicia Caraballo.callum\Date and Time Signed: 12/15/22 11:12 [id number] NotePT evaluation completed with an AM-PAC six clicks score of 15/24. Pt. able to complete bed mobilitywith CGA. Pt. requires Mod A for sit to stand transfers and constant CGA/Min A for ambulation with FWW and R walking boot, WBAT. Pt. does display one mild loss of balance episode that is able to be corrected with Min A from therapist. Moderate verbal cueing needed for proper sequencing with FWW. Recommend pt. use FWW instead of rollator walker moving forward. Recommend SNF upon discharge for further rehab to reduce fall risk. [facility] NoteChief Complaint pt. presents to the ed with c/o multiple falls, last one was on sunday. Pt. had one on was seen at [facility] and sent home with a right foot fracture. pt. is getting weaker and family wouldlike her placed for rehab. History of Present Illness This is a 87-year-old white female past medical history of morbid obesity, hypertension, hyperlipidemia, diabetes type 2, history of chronic COPD, hypothyroidism, rheumatoid arthritis, chronic back pain, aortic stenosis, and GERD who presented emergency room with weakness. Patient broke ankle on 12/07 after fall and Sat 12/09 slid out of bed again where squad was called and 3 semiconductor equipment technician had to assist in getting patient up off the floor. Patient presented to emergency room today because of generalized weakness and unable to get up and walk. Patient lives by herself. She needed a more than 2 people to get her up. Was seen by her primary physician placed patient to a skilled facility. Patient been complaining of right ankle pain, not improving by Tylenol. She denies any chest pain or shortness of breath. She denies having cough. No fever chills. No nausea or vomiting. She denies having diarrhea. No abdominal pain. Review of Systems Constitutional: no fever, no chills, no sweats, moderate scary weakness Skin: no Jaundice, no rash, no lesions, nopetechiae ENMT: no ear pain, no sore throat, no congestion, no hoarseness Respiratory: no shortness of breath, no cough, no orthopnea, no wheezing Cardiovascular: no chest pain, no palpitations, no edema Gastrointestinal: no nausea, no vomiting, no diarrhea, no GI bleeding Genitourinary: no dysuria, no hematuria, no discharge, no pain Musculoskeletal: no back pain, no trauma Neurologic: no headache, no dizziness, no numbness, no weakness Psychiatric: no sleeping problems, no irritability, no mood swings/depression. Heme/Lymph: no bleeding tendency, no bruising tendency, no petechiae, no swollen nodes Allergy/Immunologic: no seasonal allergies, no food allergies, no recurrent infections, no impairedimmunity Additional ROS info: Except as noted in the above Review of Systems and in the History of Present Illness all other systems have been reviewed and are negative or noncontributory. Scoring Bolton Fall Risk Score: 65 (12/12/22) Physical Exam Vitals & Measurements T: 36.8 ?C(Oral) HR: 57(Monitored) RR: 30 BP: 185/73 SpO2: 99% HT: 167.64 cm WT: 118 kg General: alert, no acute distress Skin: warm, dry Head: no trauma, normocephalic Neck: Trachea midline, no adenopathy, no tenderness Eye: normal conjunctiva, sclera clear ENMT: TM's clear, oral mucosa moist, no pharyngeal erythema or exudate Cardiovascular: regular rate and rhythm, normal peripheral perfusion Respiratory: Lungs CTA, respirations non labored Chest wall: no deformity. Gastrointestinal: soft, non distended, no tenderness, no guarding. Back: No tenderness, Normal ROM, Normal alignment. Extremities: no deformity, no trauma Neurological: oriented x 2, LOC appropriate for age, CN II-XII intact, motor strength equal & normal bilaterally, sensation equal & normal bilaterally, speech normal Psychiatric: cooperative, affect appropriate for age, normal judgement, normal psychiatric thoughts. Lab Results WBC: 10.2 E9/L (12/12/22 19:36:00) RBC: 3.9 E12/L Low (12/12/22 19:36:00) HGB: 12.4 gm/dL (12/12/22 19:36:00) Hct: 36.8 % (12/12/22 19:36:00) MCV: 94.2 fL (12/12/22 19:36:00) MCH: 31.8 pg (12/12/22 19:36:00) MCHC: 33.8 gm/dL (12/12/22 19:36:00) RDW: 13.8 % (12/12/22 19:36:00) Platelet: 340 E9/L (12/12/22 19:36:00) MPV: 7.3 fL (12/12/22 19:36:00) Neutro Auto: 63.7 % (12/12/22 19:36:00) Lymph Auto: 24.6 % (12/12/22 19:36:00) Archer Auto: 7.6 % (12/12/22 19:36:00) Eos Auto: 3.7 % (12/12/22 19:36:00) Basophil Auto: 0.4 % (12/12/22:36:00) Neutro Absolute: 6.5 E9/L (12/12/22 19:36:00) Lymph Absolute: 2.5 E9/L (12/12/22 19:36:00) Archer Absolute: 0.8 E9/L (12/12/22 19:36:00) Eos Absolute: 0.4 E9/L (12/12/22 19:36:00) Basophil Absolute: 0 E9/L (12/12/22:36:00) Glucose Lvl: 114 mg/dL (12/12/22 19:36:00) BUN: 34 mg/dL High (12/12/22:36:00) Creatinine: 0.9 mg/dL (12/12/22:36:00) BUN/Creat Ratio: 38 High (12/12/22:36:00) Sodium Lvl: 141 mmol/L (12/12/22 19:36:00) Potassium Lvl: 4.1 mmol/L (12/12/22 19:36:00) Chloride: 106 mmol/L (12/12/22 19:36:00) CO2: 28 mmol/L (12/12/22:36:00) AGAP: 11 mEq/L (12/12/22:36:00) Calcium Lvl: 9.2 mg/dL (12/12/22 19:36:00) Troponin: 6.3 pg/mL Low (12/12/22 19:36:00) UA Spec Desc: Clean Catch (12/12/22 20:38:00) UA Color: Yellow2 (12/12/22 20:38:00) UA Clarity: Clear2 (12/12/22 20:38:00) UA Spec Grav: 1.020 (12/12/22 20:38:00) UA pH: 5.0 (12/12/22 20:38:00) UA Protein: NEGATIVE1 (12/12/22 20:38:00) UA Glucose: NEGATIVE1 (12/12/22 20:38:00) UA Ketones: NEGATIVE1 (12/12/22 20:38:00) UA Bili: NEGATIVE1 (12/12/22 20:38:00) UA Blood: NEGATIVE1 (12/12/22 20:38:00) UA Nitrite: NEGAT (more content not included)...[facility] Comment on above:Result Comment: Electronically Signed By: CHARLEY BECERRA, David\.br\Date and Time Signed: 12/12/22 22:[id number] Hospital Discharge instructions* Discharge Instr - CATIA* Lakia Reza, DO - 12/07/2022 6:32 PM EST Continuity of Care Form Patient Name: Aleena Gill : 1935 Admit date: 12/07/2022 Discharge date: Code Status Order: No Order Advance Directives: Admitting Physician: No admitting provider for patient encounter. PCP: Efrain Esparza MD Discharging Nurse: Discharging Hospital Unit/Room#: 08/04 Discharging Unit Phone Number: Emergency Contact: Extended Emergency Contact Information Primary Emergency Contact: Merari Campbell [facility] Mobile Relation: Child Secondary Emergency Contact: STANTON HUERTA Mobile Relation: Child Preferred language: Niuean Nitroglycerin Distributor needed? 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 Edema R60.9 Gastroesophageal reflux disease K21.9 Hallucinations R44.3 Hoarseness R49.0 Hyperglycemia R73.9 Hypothyroidism E03.9 Impacted cerumen H61.20 Mixed hyperlipidemia E78.2 Morbid obesity (HCC) E66.01 Numbness of hand R20.0 Pain of left lower extremity M79.605 Rheumatoid arthritis ([facility]) M06.9 Spinal stenosis of lumbar region M48.061 Type 2 diabetes mellitus ([facility]) E11.9 Unsteadiness on feet R26.81 Isolation/Infection: Isolation No Isolation Patient Infection Status None to display Nurse Assessment: Last Vital Signs: There were no vitals taken for this visit. Last documented pain score (0-10 scale): Last Weight: Wt Readings from Last 1 Encounters: 10/31/22 250 lb (113.4 kg) Mental Status: {IP PT MENTAL STATUS:61548} IV Access: { CATIA IV ACCESS:679086271} Nursing Mobility/ADLs: Walking {P DME ADLs:261215765} Transfer {CHP DME ADLs:555362223} Bathing {CHP DME ADLs:950453162} Dressing {CHP DME ADLs:191529361} Toileting {CHP DME ADLs:909265812} Feeding {P DME ADLs:475898364} Library Clerk Talking Books {P DME ADLs:989637236} Med Delivery { CATIA MED Delivery:083174078} Wound Care Documentation and Therapy: Elimination: Continence: Bowel: {YES / NO:} Bladder: {YES / NO:} Urinary Catheter: {Urinary Catheter:517214103} Colostomy/Ileostomy/Ileal Conduit: {YES / NO:} Date of Last BM: No intake or output data in the 24 hours ending 12/07/22 1832 No intake/output data recorded. Safety Concerns: { CATIA Safety Concerns:547198755} Impairments/Disabilities: {[facility] Impairments/Disabilities:851428480} Nutrition Therapy: Current Nutrition Therapy: {[facility] Diet List:960735678} Routes of Feeding: {[facility] DME Other Feedings:055210693} Liquids: {[facility] liquid thickness:39921} Daily Fluid Restriction: {CHP DME Yes amt example:494854510} Last Modified Barium Swallow with Video (Video Swallowing Test): {Done Not Done Date:} Treatments at the Time of Hospital Discharge: Respiratory Treatments: Oxygen Therapy: {Therapy; copd oxygen:89737} Ventilator: { CC Vent List:962670573} Rehab Therapies: {THERAPEUTIC INTERVENTION:2642600326} Weight Bearing Status/Restrictions: {[facility] Weight Bearin} Other Medical Equipment (for information only, NOT a DME order): {EQUIPMENT:214380401} Other Treatments: Patient's personal belongings (please select all that are sent with patient): {CHP DME Belongings:124559940} RN SIGNATURE: {Esignature:319052166} CASE MANAGEMENT/SOCIAL WORK SECTION Inpatient Status Date: Readmission Risk Assessment Score: Readmission Risk Risk of Unplanned Readmission: 0 Discharging to Facility/ Agency Name: Address: Phone: Fax: Dialysis Facility (if applicable) Name: Address: Dialysis Schedule: Phone: Fax: Synthetic Filament Spinner/Guest Service Representative signature: {Esignature:498901131} PHYSICIAN SECTION Prognosis: {Prognosis:7205610375} Condition at Discharge: { Patient Condition:273632029} Rehab Potential (if transferring to Rehab): {Prognosis:8728720245} Recommended Labs or Other Treatments After Discharge: Physician Certification: I certify the above information and transfer of Aleena Gill is necessary for the continuing treatment of the diagnosis listed and that she requires {Admit to Appropriate Level of Care:78106} for {GREATER/LESS:006538636} 30 days. Update Admission H&P: {CHP DME Changes in HandP:469831628} PHYSICIAN SIGNATURE: {Esignature:050227821} * Attachments The following attachments cannot be sent through Care Everywhere. * Ankle Fracture (Niuean) documented in this [facility]ERS[facility] Work Phone: 1(111) 130-271908-05-2022 Hospital Discharge instructions Patient Education 06/30/2022 08:33:46 Hypertension, Adult, Dvyf-ib-Mzig Hypertension, Adult Hypertension is another name for high blood pressure. High blood pressure forces your heart to workharder to pump blood. This can cause problems over time. There are two numbers in a blood pressure reading. There is a top number (systolic) over a bottom number (diastolic). It is best to have a blood pressure that is below 120/80. Healthy choices can help lower your blood pressure, or you may need medicine to help lower it. What are the causes? The cause of this condition is not known. Some conditions may be related to high blood pressure. What increases the risk? Smoking. Having type 2 diabetes mellitus, high cholesterol, or both. Not getting enough exercise or physical activity. Being overweight. Having too much fat, sugar, calories, or salt (sodium) in your diet. Drinking too much alcohol. Having long-term (chronic) kidney disease. Having a family history of high blood pressure. Age. Risk increases with age. Race. You may be at higher risk if you are . Gender. Men are at higher risk than women before age 45. After age 65, women are at higher risk than men. Having obstructive sleep apnea. Stress. What are the signs or symptoms? High blood pressure may not cause symptoms. Very high blood pressure (hypertensive crisis) may cause: ?Headache. ?Feelings of worry or nervousness (anxiety). ?Shortness of breath. ?Nosebleed. ?A feeling of being sick to your stomach (nausea). ?Throwing up (vomiting). ?Changes in how you see. ?Very bad chest pain. ?Seizures. How is this treated? This condition is treated by making healthy lifestyle changes, such as: ?Eating healthy foods. ?Exercising more. ?Drinking less alcohol. Your health care provider may prescribe medicine if lifestyle changes are not enough to get your blood pressure under control, and if: ?Your top number is above 130. ?Your bottom number is above 80. Your personal target blood pressure may vary. Follow these instructions at home: Eating and drinking If told, follow the DASH eating plan. To follow this plan: ?Fill one half of your plate at each meal with fruits and vegetables. ?Fill one fourth of your plate at each meal with whole grains. Whole grains include whole-wheat pasta, brown rice, and whole-grain bread. ?Eat or drink low-fat dairy products, such as skim milk or low-fat yogurt. ?Fill one fourth of your plate at each meal with low-fat (lean) proteins. Low- fat proteins include fish, chicken without skin, eggs, beans, and tofu. ?Avoid fatty meat, cured and processed meat, or chicken with skin. ?Avoid pre-made or processed food. Eat less than 1,500 mg of salt each day. Do not drink alcohol if: ?Your doctor tells you not to drink. ?You are , may be , or are planning to become . If you drink alcohol: ?Limit how much you use to: ?0 1 drink a day for women. ?0 2 drinks a day for men. ?Be aware of how much alcohol is in your drink. In the [place] one drink equals one 12 oz bottle of beer (355 mL), one 5 oz glass of wine (148 mL), or one 1 oz glass of hard liquor (44 mL). Lifestyle Work with your doctor to stay at a healthy weight or to lose weight. Ask your doctor what the best weight is for you. Get at least 30 minutes of exercise most days of the week. This may include walking, swimming, or biking. Get at least 30 minutes of exercise that strengthens your muscles (resistance exercise) at least 3 days a week. This may include lifting weights or doing Pilates. Do not use any products that contain nicotine or tobacco, such as cigarettes, e- cigarettes, and chewing tobacco. If you need help quitting, ask your doctor. Check your blood pressure at home as told by your doctor. Keep all follow-up visits as told by your doctor. This is important. Medicines Take wstz-vja-ywgsdia and prescription medicines only as told by your doctor. Follow directions carefully. Do not skip doses of blood pressure medicine. The medicine does not work as well if you skip doses.Skipping doses also puts you at risk for problems. Ask your doctor about side effects or reactions to medicines that you should watch for. Contact a doctor if you: Think you are having a reaction to the medicine you are taking. Have headaches that keep coming back (recurring). Feel dizzy. Have swelling in your ankles. Have trouble with your vision. Get help right away if you: Get a very bad headache. Start to feel mixed up (confused). Feel weak or numb. Feel faint. Have very bad pain in your: ?Chest. ?Belly (abdomen). Throw up more than once. Have trouble breathing. Summary Hypertension is another name for high blood pressure. High blood pressure forces your heart to work harder to pump blood. For most people, a normal blood pressure is less than 120/80. Making healthy choices can help lower blood pressure. If your blood pressure does not get lower with healthy choices, you may need to take medicine. This information is not intended to replace advice given to you by your health care provider. Make sure you discuss any questions you have with your health care provider. Document Released: 04/30/2009 Document Revised: 07/23/2019 Document Reviewed: 07/23/2019 [employer] Patient Education 2020 [employer] Yourself. Follow Up Care 05/04/2022 08:53:43 With:ISAIAS BECERRA, Efrain Chambers, [facility] Address: [facility] [address] [facility] [address] [place] [address]- When:Within 3 Month(s) [facility] 03-01-2022 Evaluation + Plan note Future Scheduled Tests Laboratory* HgbA1c 01/24/22 * CBC w/ Auto Diff 01/24/22 * Comprehensive Metabolic Panel 01/24/22 * Lipid Panel 01/24/22 [facility] 12-13-2021 History of Present illness Narrative* Berkley Darling Garza, MANAGER MACHINE - 11/07/2021 10:30 AM EST Images from the original note were not included. [facility] Outpatient Physical Therapy Daily Note Date: 11/07/2021 Patient Name: Aleena Gill : 1935 (86 y.o.) Referring Practitioner: Dr. Efrain Esparza Referral Date : 09/27/21 Diagnosis: Unsteadiness on feet Treatment Diagnosis: Gait ataxia, L LE pain Onset Date: 09/30/21 PT Insurance Information: [facility] 20v Total # of Visits Approved: 12 Per Physician Order Total # of Visits to Date: 7 No Show: 0 Canceled Appointment: 0 Plan of Care/Certification Expiration Date: 12/12/20 Pre-Treatment Pain: 6/10 Assessment Assessment: Patient arrives reporting pain increased to 6/10. no progression of exercises as pt demonstrating increased pain. Patient requred 1 seated break d/t pain in R LE and demonstrated lack of stability when completing amp ball rolls. Patient continues to require VC to walk closer to her WW to ambulate safely. Bar across walker limits pt on how far she can step up into walker to ambulate. Chart Reviewed: Yes Plan Plan: Continue with current plan Exercises/Modalities/Manual: See DocFlow Sheet Education: Barriers to Learning: None Goals (Total # of Visits to Date: 7) Short Term Goals - Time Frame for Short term goals: 8 visits Short term goal 1: Pt to report independence and compliance with HEP for ROM and hip strengthening. Short term goal 2: Pt to obtain and utilize FWW to improve safety and reduce falls. Intermediate Goals - Time Frame for half-way goals : 16 visits(POC exp 12/12/21) half-way goal 1: Pt to score > 34/80 on LEFS to improve pt ADLs. half-way goal 2: Pt to maintain Narrow OBED 10sec 2:3 trials without UEs to improve safety in shower. half-way goal 3: Pt to have 4/5 hip ABD strength to improve standing mirela. half-way goal 4: Pt to report no LOB/Falls x2 consecutive weeks to improve safety in the home. Post Treatment Pain: 4/10 Time In: 1032 Time Out: 1108 Timed Code Treatment Minutes: 36 Minutes Total Treatment Time: 36 Minutes Berkley Garza, MANAGER MACHINE Date: 11/07/2021 documented in this [facility] [employer] Work Phone: 1(275) 686-526611-07-2021 Note No acute thoracic spine findings. If pain persists, further evaluation with CT scan or MRI could be considered. [facility] RIS [id number] [facility] Vascular Lower Extremities DVT Study Procedure Patient Name BRIDGET Date of Study 06/13/2021 ALEENA Dixon Date of 1935 Gender Female Age 85 year(s) Race RoomNumber Corporate ID # [id number] Patient MR # [id number] Sap Data Analyst Kiya Forte, RT Interpreting Physician Heri Godoy Referring Nurse Referring Physician Efrain Esparza Practitioner Xena Andrews Procedure Type of Study: Veins: Lower Extremities DVT Study, DUP LOWER EXTREMITY VENOUS LEFT. Indications for Study:Pain, leg. Patient Status:Routine. Technical Quality:Limited visualization. Limitation reason:Limited exam due to patient unable to tolerate procedure, leg and hip pain. Comments:Patient unable to tolerate procedure and was in too much pain and something else would have to be done. cw Conclusions Summary Patient could not tolerate further evaluation of the calf on the left. Negative for DVT from left groin through popliteal v. Signature --- Electronically signed by RT Veronica(Hoang)(Zack)(CT)([facility])(Sap Data Analyst) on 06/13/2021 01:40 PM Left Impression: CFV, DFV, FV , POPv vessels compressed. CFV, DFV, FV prox and mid augmented and POPv. No evidence of DVT in limited exam due to patient unableto tolerate procedure, expressed alot of groin, hip and lower leg pain. Duplex scan using B-mode, Dia scale imaging. Spectral doppler analysis and color flow throughout the exam. Velocities are measured in cm/s ; Diameters are measured in cm Left Lower Extremities DVT Study Measurements Left 2D Measurements + + + + + !Location !Visualized!Compressibility!Thrombosis! + + + + + !Common Femoral !Yes !Yes !None ! + + + + + !Prox Femoral !Yes !Yes !None ! + +---- ------+ + + !Mid Femoral !Yes !Yes !None ! + + + + + !Dist Femoral !Yes !Yes !None ! + + + + + !Deep Femoral !Yes !Yes !None ! + + + + + !Popliteal !Yes !Yes !None ! +--------- + + + +Consulting Services Phone: 1(160) 527-310007-17-2021 Hospital Discharge instructions* Instructions* Xena Andrews MD - 06/11/2021 Alternate ibuprofen with Tylenol 500 to 650 mg every 4 hours for pain control. * Attachments The following attachments cannot be sent through Care Everywhere. * Hip Pain (Niuean) * Hypertension: General Info (Niuean) * Arthritis (Niuean) documented in this [facility] Phone: evaluation + Plan note Future Appointments Appointment Date:06/30/2022 08:00:00 AM Scheduled Provider:Efrain ESPARZA MD Location:[facility] Appointment Type: Open Future Scheduled Tests Laboratory* HgbA1c 01/24/22 * CBC w/ Auto Diff 01/24/22 * Comprehensive Metabolic Panel 01/24/22 * [facility]ments Appointment Date:06/30/2022 08:00:00 AM Scheduled Provider:Efrain ESPARZA MD Location:[facility] App[facility]ments Appointment Date:10/06/2022 10:00:00 AM Scheduled Provider:Efrain ESPARZA MD Location:[facility] Appointment Type:[facility] Future Scheduled Tests Laboratory* HgbA1c 06/30/22 * CBC w/ Auto Diff 06/30/22 * Comprehensive Metabolic Panel 06/30/22 * Lipid Panel 06/30/22 * Thyroid Stimulating Hormone 06/30/22 * Free T4 06/30/22 [facility] Evaluation + Plan note Future Appointments Appointment Date:10/06/2022 10:00:00 AM Scheduled Provider:Efrain ESPARZA MD [facility] Pain in left hip- Primary Pain in joint, pelvic region and thigh Pain of left calf Essential hypertension Unspecified essential hypertension Osteoarthritis of left hip, unspecified osteoarthritis type documented in this encounter [employer] Phone: evalsmfoio note* Diagnosis Paresthesia Disturbance of skin sensation documented in this encounter [employer] Phone: evallbssoc note* Diagnosis Pain of left calf documented in this encounter [employer] Phone: evalduresw note* Diagnosis Mitral valve insufficiency, unspecified etiology documented in this encounter [employer] Phone: evalwoymri note* Diagnosis Atrial fibrillation, unspecified type (HCC) 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 Essential hypertension Unspecified essential hypertension Hyperlipidemia, unspecified hyperlipidemia type Ischemic cardiomyopathy Other specified forms of chronic ischemic heart disease Vitamin D deficiency disease Unspecified vitamin D deficiency documented in this encounter [employer] Phone: evalwluwkt note* Diagnosis Atrial fibrillation, unspecified type (HCC) 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 Essential hypertension Unspecified essential hypertension Hyperlipidemia, unspecified hyperlipidemia type Ischemic cardiomyopathy Other specified forms of chronic ischemic heart disease Vitamin D deficiency disease Unspecified vitamin D deficiency documented in this encounter [employer] Phone: [email or web address] note* Diagnosis Atrial fibrillation, unspecified type (HCC) 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 Essential hypertension Unspecified essential hypertension Hyperlipidemia, unspecified hyperlipidemia type Ischemic cardiomyopathy Other specified forms of chronic ischemic heart disease Vitamin D deficiency disease Unspecified vitamin D deficiency documented in this encounter [employer] Phone: evaluation note* Diagnosis Contusion of ribs, right, initial encounter- Primary Contusion of thoracic spine Contusion of lower back, initial encounter documented in this encounter [employer] Phone: evaluation note* Diagnosis Pain in both wrists Pain in joint, forearm documented in this encounter [facility] Phone: evaluation note* Diagnosis Aortic valve stenosis, etiology of cardiac valve disease unspecified documented in this encounter [facility] Phone: evaluation note* Diagnosis Atrial fibrillation, unspecified type (HCC) Essential hypertension Unspecified essential hypertension 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 Hyperlipidemia, unspecified hyperlipidemia type Ischemic cardiomyopathy Other specified forms of chronic ischemic heart disease Vitamin D deficiency disease Unspecified vitamin D deficiency Mitral valve insufficiency, unspecified etiology documented in this encounter [facility] Phone: evaluation note* Diagnosis Atrial fibrillation, unspecified type (HCC) Essential hypertension Unspecified essential hypertension 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 Hyperlipidemia, unspecified hyperlipidemia type Ischemic cardiomyopathy Other specified forms of chronic ischemic heart disease Vitamin D deficiency disease Unspecified vitamin D deficiency Mitral valve insufficiency, unspecified etiology documented in this encounter [facility] Phone: evaluation note* Diagnosis Closed fracture of distal end of right fibula, unspecified fracture morphology, initial encounter- Primary documented in this encounter [facility] Phone: evaluation note* Diagnosis Generalized weakness- Primary Other malaise and fatigue Closed fracture of right ankle, initial encounter documented in this encounter [facility] Phone: Hospital course Narrative No data available for this section [facility] Hospital Discharge instructions* Attachments The following attachments cannot be sent through Care Everywhere. 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 Essential hypertension Unspecified essential hypertension Diagnosis Ischemic cardiomyopathy Other specified forms of chronic ischemic heart disease Diagnosis Atrial fibrillation, unspecified type (HCC) 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 Essential hypertension Unspecified essential hypertension Hyperlipidemia, unspecified hyperlipidemia type Vitamin D deficiency disease Unspecified vitamin D deficiency Diagnosis Primary osteoarthritis of right knee Primary localized osteoarthrosis, lower leg Diagnosis Left leg weakness Other musculoskeletal symptoms referable to limbs Lumbosacral radiculopathy Thoracic or lumbosacral neuritis or radiculitis, unspecified Has numbness Diagnosis Bruit Other symptoms involving cardiovascular system Diagnosis Atrial fibrillation, unspecified type (HCC) 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 Essential hypertension Unspecified essential hypertension Diagnosis Injury of head, initial encounter- Primary Advance Directives No Advanced Directives Records FoundDocuments on File Type Date Recorded Patient Human Resources Receptionist Expl anation Advance Directives and Living Will Power of Parts Sales Associate Documents on File Type Date Recorded Patient Human Resources Receptionist Expl anation ACP-Advance Directive ACP-Power of Parts Sales Associate Documents on File Type Date Recorded Patient Human Resources Receptionist Expl anation ACP-Advance Directive ACP-Power of Parts Sales Associate Latest Code Status on File Code Status Date Activated Date Inactivated Comments DNR-CCA 12/21/2022 9:56 AM Full Code 12/16/2022 12:39 AM 12/21/2022 9:56 AM Healthcare Agents on File Name Relationship Healthcare Agent Relationship Communication Merari Campbell Child Primary Decision Maker Stanton Huerta Child Secondary Decision Maker Reason for Referral Status Reason Specialty Diagnoses / Procedures Referred By Contact Referred To Contact Pending Review Cardiology Diagnoses Atrial fibrillation, unspecified type (HCC) 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 Essential hypertension Procedures EKG 12 Lead Emiliano Deng MD [address] [place] [id number] Status Reason Specialty Diagnoses / Procedures Re ferred By Contact Referred To Contact Closed Cardiology Diagnoses Ischemic cardiomyopathy Procedures ECHO Complete 2D W Doppler W Color HC ECHO NO CONTRAST WITH DOP/COLR Emiliano Deng MD [address] [place] [address] Status Reason Specialty Diagnoses / Procedures Referre d By Contact Referred To Contact Closed Radiology Diagnoses Left leg weakness Lumbosacral radiculopathy Has numbness Procedures MRI lumbar spine without contrast Gaston Parekh, DO [address] [place] [address] Status Reason Specialty Diagnoses / Procedures Referred By Contact Referred To Contact Pending Review Vascular Lab Diagnoses Bruit Procedures VL DUP CAROTID BILATERAL Emiliano Deng MD [address] [place] [address] [facility] [address] [place] [address] Status Reason Specialty Diagnoses / Procedures Referre d By Contact Referred To Contact Open Radiology Diagnoses Pain of left calf Procedures VL DUP LOWER EXTREMITY VENOUS LEFT Strus, Xena Porter MD [address] [place] [address] Status Reason Specialty Diagnoses / Procedures Referred By Contact Referred To Contact Pending Review Radiology Diagnoses Pain of left calf Procedures VL DUP LOWER EXTREMITY VENOUS LEFT Strus, Xena Porter MD [address] [place], [place] [address] [place] [address] Status Reason Specialty Diagnoses / Procedures Referre d By Contact Referred To Contact Closed Cardiology Diagnoses Mitral valve insufficiency, unspecified etiology Procedures ECHO Complete 2D W Doppler W Color Emiliano Deng MD [address] [place] [address] Status Reason Specialty Diagnoses / Procedures Re ferred By Contact Referred To Contact Pending Review Cardiology Diagnoses Atrial fibrillation, unspecified type (HCC) 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 Essential hypertension Hyperlipidemia, unspecified hyperlipidemia type Ischemic cardiomyopathy Vitamin D deficiency disease Procedures EKG 12 Lead Emiliano Deng MD [address] [place] [id number] Specialty Diagnoses / Procedures Referred By Contac t Referred To Contact Cardiology Diagnoses Aortic valve stenosis, etiology of cardiac valve disease unspecified Procedures ECHO Complete 2D W Doppler W Color Emiliano Deng MD [address] [place] [id number] Referral ID Status Reason Start Date Expiration Date V isits Requested Visits Authorized [id number] Pending Review 08/20/2022 08/20/2023 1 1 Discharge Instructions * Attachments The following attachments cannot be sent through Care Everywhere. * Head Injury: Closed: General Info (Niuean) documented in this encounter Summary Purpose Family History No Family History Records FoundNo Family History Records FoundNo Family History Records Found Additional Source Comments Reason for Visit (unrecogniz ed section and content) Status Reason Specialty Diagnoses / Procedures Re ferred By Contact Referred To Contact Closed Cardiology Diagnoses Ischemic cardiomyopathy Procedures ECHO Complete 2D W Doppler W Color HC ECHO NO CONTRAST WITH DOP/COLR Emiliano Deng MD [address] [place] [address] Status Reason Specialty Diagnoses / Procedures Referre d By Contact Referred To Contact Closed Radiology Diagnoses Left leg weakness Lumbosacral radiculopathy Has numbness Procedures MRI lumbar spine without contrast Gaston Parekh, DO [address] [place] [address] Status Reason Specialty Diagnoses / Procedures Referred By Contact Referred To Contact Pending Review Vascular Lab Diagnoses Bruit Procedures VL DUP CAROTID BILATERAL Emiliano Deng MD [address] [place] [address] [facility] [address] [place] [address] Reason Comments Fall pt states she was ca rrying in groceries to her house and fell faceforward, Trauma to right side forehead and pain to right arm Reason Comments Groin Pain left groin pain for about 3 weeks and left lower leg for about 6 months Status Reason Specialty Diagnoses / Procedures Referred By Contact Referred To Contact Pending Review Radiology Diagnoses Pain of left calf Procedures VL DUP LOWER EXTREMITY VENOUS LEFT Strus, Xena Porter MD [address] [place] [address] Status Reason Specialty Diagnoses / Procedures Referre d By Contact Referred To Contact Closed Cardiology Diagnoses Mitral valve insufficiency, unspecified etiology Procedures ECHO Complete 2D W Doppler W Color Emiliano Deng MD [address] [place] [address] Reason Comments Fall Patient fell into si de of bath tub yesterday morning. No LOC didnt hit head. Has back pain now. Family staets has fallen multiple times over last [address] Esparza has ordered PT to help her get stronger. 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 Essential hypertension Hyperlipidemia, unspecified hyperlipidemia type Ischemic cardiomyopathy Vitamin D deficiency disease Procedures EKG 12 Lead Emiliano Deng MD [address] [place] [address] Referral ID Status Reason Start Date Expiration Date V isits Requested Visits Authorized [id number] Pending Review 09/20/2021 09/20/2022 1 1 Reason Comments Ankle Pain Patient presents to the ED with c/o right ankle pain - patient states she was putting on her nightgown and fell - scooted to her bedroom and sat on the bed - when she tried to stand up she heard a pop Specialty Diagnoses / Procedures Referred By Daphne rey Referred To Contact Diagnoses Weakness Generalized weakness Back, MD Андрей [address] [place] [address] [facility] [address] [place] [address] Referral ID Status Reason Start Date Expiration Date Visits Re quested Visits Authorized [id number] 1 1 Ordered Prescriptions (unrec ognized section and content) Prescription Sig Dispensed Refills Start Date End Da te ibuprofen (ADVIL;MOTRIN) 600 MG tablet Take 1 tablet by mouth 4 times daily as needed for Pain 40 tablet 0 06/11/2021 Prescription Sig Dispensed Refills Start Date End Da te HYDROcodone-acetaminophe n (NORCO) 5-325 MG per tabletIndications:Closed fracture of distal end of right fibula, unspecified fracture morphology, initial encounter Take 0.5 tablets by mouth every 8 hours as needed for Pain for up to 3 days. Intended supply: 3 days. Take lowest dose possible to manage pain Max Daily Amount: 1.5 tablets 5 tablet 0 12/07/2022 12/10/2022 Prescription Sig Dispensed Refills Start Date End Da te metoprolol tartrate (LOPRESSOR) 100 MG tablet Take 1 tablet by mouth daily 60 tablet 3 12/26/2022 senna (SENOKOT) 8.6 MG tablet Take 2 tablets by mouth 2 times daily as needed (Constipation) 0 12/26/2022 01/25/2023 pantoprazole (PROTONIX) 40 MG tablet Take 1 tablet by mouth every morning (before breakfast) 30 tablet 3 12/27/2022 oxyCODONE-acetaminophen (PERCOCET) 5-325 MG per tabletIndications:Closed fracture of right ankle, initial encounter Take 1 tablet by mouth every 6 hours as needed for Pain for up to 7 days. Max Daily Amount: 4 tablets 20 tablet 0 12/26/2022 01/02/2023 gabapentin (NEURONTIN) 100 MG capsule Take 1 capsule by mouth 2 times daily for 30 days. 60 capsule 0 12/26/2022 01/25/2023 Scheduled Active and Recently Administ ered Medications (unrecognized section and content) Medication Order 06/09/2021 06/10/2021 06/11/2021 ketorolac (TORADOL) injection 60 mg (COMPLETED) 60 mg, Intramuscular, ONCE, On 06/11/21 at 0900, For 1 dose, Do not administer for more than 5 days. 0900 (Given - Provid er: Sarah Grijalva RN) Scheduled Medication Order 09/30/2021 10/01/2021 10/02/2021 ketorolac (TORADOL) injection 30 mg (COMPLETED) 30 mg, IntraMUSCular, ONCE, On 10/02/21 at 0130, For 1 dose, Do not administer for more than 5 days. 0132 (Given - Provid er: Sonido Hatch RN) Scheduled Medication Order 12/24/2022 12/25/2022 12/26/2022 aspirin chewable tablet 81 mg 81 mg, Oral, DAILY, First dose on 12/16/22 at 0900, Until Discontinued 0811 (Given - Provider: Dafne Avalos RN) 0849 (Given - Provider: Shakeel Yoder RN) 0849 (Given - Provider: Dafne Avalos, MAUREEN) atorvastatin (LIPITOR) tablet 20 mg 20 mg, Oral, DAILY, First dose on 12/16/22 at 0900, Until Discontinued 0812 (Given - Provider: Dafne Avalos RN) 0850 (Given - Provider: Shakeel Yoder RN) 0848 (Given - Provider: Dafne Avalos, MAUREEN) DULoxetine (CYMBALTA) extended release capsule 30 mg 30 mg, Oral, DAILY, First dose on 12/16/22 at 0900, Until Discontinued, Do not crush or break. May add contents of capsule to apple juice or apple sauce, but not chocolate. 0812 (Given - Provider: Dafne Avalos RN) 0850 (Given - Provider: Shakeel Yoder RN) 0848 (Given - Provider: Dafne Avalos RN) enoxaparin Sodium (LOVENOX) injection 30 mg 30 mg, SubCUTAneous, 2 TIMES DAILY, First dose (after last modification) on Sun12/19/22 at 0900, Until Discontinued, Indication of Use: Prophylaxis-DVT/PE 0811 (Given - Provider: Dafne Avalos RN)2045 (Given - Provider: Osbaldo Zhu RN) 0851 (Given - Provider: Shakeel Yoder RN)222 (Given - Provider: Judy Guthrie, MAUREEN) 0848 (Given - Provider: Dafne Avalos RN)2099 (Due) furosemide (LASIX) tablet 20 mg 20 mg, Oral, DAILY, First dose on Sun12/16/22 at 0900, Until Discontinued 09 (Automatically Held - Provider: Nicholas Rowan MD) 09 (Automatically Held - Provider: Nicholas Rowan MD) 0900 (Automatically Held) gabapentin (NEURONTIN) capsule 100 mg 100 mg, Oral, 2 TIMES DAILY, First dose on Sun12/22/22 at 2100, Until Discontinued 08 (Given - Provider: Dafne Avalos RN)2045 (Given - Provider: Osbaldo Zhu RN) 0850 (Given - Provider: Shakeel Yoder RN)223 (Given - Provider: Judy Guthrie RN - Comment: this was given along with her other meds and was scanned along with them. Not sure why it didnt register) 0849 (Given - Provider: Dafne Avalos RN)2099 (Due) levothyroxine (SYNTHROID) tablet 50 mcg 50 mcg, Oral, DAILY, First dose on Sun12/16/22 at 0700, Until Discontinued, Tube feeding (TF) interaction, obtain physician order to manage, recommend holding TF for 30 minutes before and after dose. 0815 (Given - Provider: Dafne Avalos RN) 0549 (Given - Provider: Osbaldo Zhu RN) 0627 (Given - Provider: Judy Guthrie RN) lisinopril (PRINIVIL;ZESTRIL) tablet 20 mg 20 mg, Oral, DAILY, First dose (after last modification) on Sun12/22/22 at 0900, Until Discontinued 0900 (Automatically Held - Provider: Nicholas Rowan MD) 0900 (Automatically Held - Provider: Nicholas Rowan MD) 0900 (Automatically Held) metoprolol tartrate (LOPRESSOR) tablet 100 mg 100 mg, Oral, DAILY, First dose on 12/16/22 at 0900, Until Discontinued 0811 (Given - Provider: Dafne Avalos RN) 0851 (Given - Provider: Shakeel Yoder RN) 0849 (Given - Provider: Dafne Avalos RN) multivitamin 1 tablet 1 tablet, Oral, DAILY, First dose on 12/16/22 at 0900, Until Discontinued 0812 (Given - Provider: Dafne Avalos RN) 0851 (Given - Provider: Shakeel Yoder RN) 0849 (Given - Provider: Dafne Avalos RN) pantoprazole (PROTONIX) tablet 40 mg 40 mg, Oral, DAILY BEFORE BREAKFAST, First dose on 12/16/22 at 0700, Until Discontinued, Do not crush or break. 0815 (Given - Provider: Dafne Avalos RN) 0549 (Given - Provider: Osbaldo Zhu RN) 0627 (Given - Provider: Judy Guthrie RN) potassium chloride (KLOR-CON) extended release tablet 10 mEq 10 mEq, Oral, DAILY WITH BREAKFAST, First dose on 12/16/22 at 0800, Until Discontinued, Do not crush or break. 0812 (Given - Provider: Dafne Avalos RN) 0850 (Given - Provider: Shakeel Yoder RN) 0849 (Given - Provider: Dafne Avalos RN) spironolactone (ALDACTONE) tablet 25 mg 25 mg, Oral, DAILY, First dose on 12/16/22 at 0900, Until Discontinued 0812 (Given - Provider: Dafne Avalos RN) 0850 (Given - Provider: Shakeel Yoder RN) 0849 (Given - Provider: Dafne Avalos RN) Vitamin D (CHOLECALCIFEROL) tablet 5,000 Units Labeling may look different. 25 euh=1806 Units. Please double check dosages., 5,000 Units, Oral, DAILY, First dose on 12/16/22 at 0900, Until Discontinued, Labeling may look different. 25 ram=7653 Units. Please double check dosages. 0811 (Given - Provider: Dafne Avalos RN) 0850 (Given - Provider: Shakeel Yoder RN) 0848 (Given - Provider: Dafne Avalos, RN) vitamin E capsule 400 Units 400 Units, Oral, DAILY, First dose on 12/25/22 at 1430, Until Discontinued 1407 (Given - Provider: Britany Rosario, RN) 0848 (Given - Provider: Dafne Avalos, RN) PRN Medication Order 12/24/2022 12/25/2022 12/26/2022 acetaminophen (TYLENOL) tablet 650 mg 650 mg, Oral, EVERY 6 HOURS PRN, Starting on 12/16/22 at 0038, Until Discontinued, Pain Mild (1-3), Maximum dose of acetaminophen is 4000 mg from all sources in 24 hours. aluminum & magnesium hydroxide-simethicone (MAALOX) 200-200-20 MG/5ML suspension 30 mL 30 mL, Oral, EVERY 6 HOURS PRN, Starting on 12/22/22 at 1239, Until Discontinued, Indigestion ondansetron (ZOFRAN-ODT) disintegrating tablet 4 mg 4 mg, Oral, EVERY 8 HOURS PRN, Starting on Sherley 12/21/22 at 1205, Until Discontinued, Nausea, Vomiting 1249 (Given - Provider: Alden Michael, MAUREEN) oxyCODONE-acetaminophen (PERCOCET) 5-325 MG per tablet 1 tablet Mg/kg dosing is based on the oxycodone component., 1 tablet, Oral, EVERY 6 HOURS PRN, Starting on 12/16/22 at 0038, Until Discontinued, Pain Moderate (4-6), Pain Severe (7-10), Maximum dose of acetaminophen is 4000 mg from all sources in 24 hours. 0403 (Given - Provider: Osbaldo Zhu, MAUREEN)2045 (Given - Provider: Osbaldo Zhu, MAUREEN) 0549 (Given - Provider: Osbaldo Zhu, MAUREEN)2221 (Given - Provider: Judy Guthrie, MAUREEN) 0848 (Given - Provider: Dafne Avalos, RN) senna (SENOKOT) tablet 17.2 mg 17.2 mg (2 tablet), Oral, 2 TIMES DAILY PRN, Starting on 12/16/22 at 0038, Until Discontinued, Constipation Care Teams (unrecognized sec tion and content) Heavy Equipment Operator Apprentice Relationship Specialty Start Date End Date Efrain Esparza MD [address] [place] [address] PCP - General Internal Medicine 01/10/18 Heavy Equipment Operator Apprentice Relationship Specialty Start Date End Date Efrain Esparza MD [address] [place] [address] PCP - General Internal Medicine 01/10/18 Heavy Equipment Operator Apprentice Relationship Specialty Start Date End Date Efrain Esparza MD [address] [place] [address] PCP - General Internal Medicine 01/10/18 Heavy Equipment Operator Apprentice Relationship Specialty Start Date End Date Efrain Esparza MD [address] [place] [address] PCP - General Internal Medicine 01/10/18 Heavy Equipment Operator Apprentice Relationship Specialty Start Date End Date Efrain Esparza MD [address] [place] [address] PCP - General Internal Medicine 01/10/18 Heavy Equipment Operator Apprentice Relationship Specialty Start Date End Date Efrain Esparza MD [address] [place] [address] PCP - General Internal Medicine 01/10/18 Heavy Equipment Operator Apprentice Relationship Specialty Start Date End Date Efrain Esparza MD [address] [place] [address] PCP - General Internal Medicine 01/10/18 Heavy Equipment Operator Apprentice Relationship Specialty Start Date End Date Efrain Esparza MD [address] [place] [address] PCP - General Internal Medicine 01/10/18 Heavy Equipment Operator Apprentice Relationship Specialty Start Date End Date Efrain Esparza MD [address] [place] [address] PCP - General Internal Medicine 01/10/18 Heavy Equipment Operator Apprentice Relationship Specialty Start Date End Date Efrain Esparza MD [address] [place] [address] PCP - General Internal Medicine 01/10/18 INFORMATION SOURCE (unrecogn ized section and content) DATE CREATED AUTHOR 03/11/2023 [facility] DATE CREATED AUTHOR AUTHOR'S ORGANIZ ATION 12/05/2023 [facility] DATE CREATED AUTHOR AUTHOR'S ORGANIZ ATION 12/06/2023 Maranda dodson FOR RECORDS PERTAINING TO PATIENTS WHO ARE OR HAVE BEEN ENROLLED IN A CHEMICAL DEPENDENCY/SUBSTANCEABUSE PROGRAM, SOME INFORMATION MAY BE OMITTED. This clinical summary was aggregated from multiple sources. Caution should be exercised in using it in the provision of clinical care. This summary normalizes information from multiple sources, and as a consequence, information in this document may materially change the coding, format and clinical context of patient data. In addition, data may be omitted in some cases. CLINICAL DECISIONS SHOULD BE BASED ON THE PRIMARY CLINICAL RECORDS. [employer] [facility]. provides no warranty or guarantee of the accuracy or completeness of information in this document.
[2023-12-21 08:48] LABS: Chol HDL Ratio 2.8; Cholesterol 121 mg/dL (<=200); HDL Cholesterol 43 mg/dL (40-60); LDL Cholesterol Calculated 57.2 mg/dL; Triglycerides 104 mg/dL (<=150); VLDL CHOLESTEROL 20.8 mg/dL
== END 2023-12-21 03:33 | disposition home or self-care (01) ==
LOC: LAB 03:32
PROVIDERS: PCP Family Medicine; Visit Provider Nurse Practitioner Family
DX: E78.5 Hyperlipidemia, unspecified (principal)
CPT/HCPCS: 36415; 80061

== ENCOUNTER 2024-02-05 07:15 | Outpatient (REF) | payer MEDICARE, MEDICAID, SELFPAY ==
--- OUTSIDE RECORDS SUMMARY | 2024-02-06 07:46 | XMS_ITS | CCD ---
Author Name Unknown Address [address] [place] [address] Organization [facility] Care Team Providers Care Box Maker Name Role Phone Efrain Esparza Primary Care Provider [phone] Efrain ESPARZA Primary Care Physician [phone] Isaias BECERRA, Efrain Gillespie Primary Care Provider Efrain Esparza MD Primary Care Provider [phone] Isaias BECERRA, Efrain Gillespie Primary Care Provider [...] Attending Unavailable EMILIANO DENG Referring Unavailable EFRAIN SEPARZA Primary Care Unavailable KEENA MCGUIRE Referring Unavailable [...] Ordered Start: 02-06-2020 take 1 tablet by clarie th once daily aspirin 81 mg oral [...] 20 mg/ml oral suspension (2 sources) Uncompetitive S-gysdot-Q-aspartate Receptor Antagonist, Sigma-1 Agonist Dextromethorphan-gua iFENesin 10-100 [...] 05/10/21 Status: Ordered take 1 capsule by [facility] once daily DULoxetine (CYMBALTA) 60 MG [...] Daily, # 90 tab(s), Refills(s) 3, Pharmacy: [address], [address], cm, 10/26/21 13:49:00 EST, Height/Length [...] # 90 tab(s), Refills(s) 3, Pharmacy: [facility], [address], cm, 01/24/22 11:42:00 EST, Height/Length [...] daily 30 tablet 3 09/19/2021 Active sennosides, snf 8.6 mg oral tablet (3 sources) Start: 12-26-2022 End: 01-25-2023 take 2 tablets by mouth twice daily as needed for constipation senna (SENOKOT) 8.6 MG tablet Take 2 tablets by mouth 2 times daily as needed (Constipation) 0 12/26/2022 01/25/2023 Active Start: 12-16-2022 senna (SENOKOT ) tablet 17.2 mg Start: 12-15-2022 take 2 tablets by [facility] twice daily as needed Senokot 8.6 mg [...] mL, SubCutaneous, Further dosing per PCP or database security administrator, Refills(s) 0, Arthritis Start Date: 08/30/10 Stop [...] International_Unit = 1 cap(s), Oral, Daily, per gauge controller Start Date: 02/06/20 Status: Ordered Problems Active [...] current use of drug therapy; Translations: [Other half-way (current) drug therapy] Onset: 12-14-2022 Episodic Other [...] Range Facility Consultation Noteon 01-08-20 Consultation Note [id number] #1.00TIFF Normal [facility] No Panel Informationon 01-03 Divine Carter MA 01/07/2024 4:00 PM M Inj/Asp: bilateral radiocarpal on 01/03/2024 1:55 PM Indications: diagnostic evaluation Details: 25 G needle, ultrasound-guided Medications (Right): 6 mg betamethasone acetate-betamethason e sodium phosphate 6 (3-3) MG/ML Medications (Left): 6 mg betamethasone acetate-betamethason e sodium phosphate 6 (3-3) MG/ML Outcome: tolerated well, no immediate complications Consent was given by the patient. [facility] Echocardiographyon Echocardiography [id number]# 1.00TIFF Normal [facility] Retail - Clinical Noteon Retail - Clinical Note [id number] #1.00TIFF Normal [facility] CBC with Diffon 09-06-2023 Abs. Basophil 0.02 k/uL Normal 0.00-0.20 [facility] Comment on above: Performed By: #### Martha FAST, CP, CDP, TSHX, MG #### [facility] [address] [place] [address] Family Nurse Practitioner: Ronaldo Reed MD #### LIPR #### [facility] [employer] [address] [place] [address] Family Nurse Practitioner: Jaxon Irwin MD Abs.Imm.Granulocyte 0.01 k/uL Normal 0.00-0.30 [facility] Comment on above: Performed By: #### Martha FAST, CP, CDP, TSHX, MG #### [facility] [address] [place] [phone] Family Nurse Practitioner: Ronaldo Reed MD #### LIPR #### [place] [id number] Family Nurse Practitioner: Jaxon Irwin MD Abs.Neutrophil (Seg) 5.48 k/uL Normal 2.5-7.0 [facility] Comment on above: Performed By: #### Z FAST, CP, CDP, TSHX, MG #### [facility] [address] [place], [place] [phone] Family Nurse Practitioner: Ronaldo Reed MD #### LIPR #### [address] [id number] Family Nurse Practitioner: Jaxon Irwin MD Basophils/100 WBC (Bld) 0 % Normal 0-2 [facility] Comment on above: Performed By: #### Martha FAST, CP, CDP, TSHX, MG #### [facility] [address] [place], [place] [phone] Family Nurse Practitioner: Ronaldo Reed MD #### LIPR #### [address] [address] Family Nurse Practitioner: Jaxon Irwin MD Eosinophils (Bld) [#/Vol] 0.35 10*3/uL Normal 0.00-0.40 [facility] Comment on above: Performed By: #### Martha FAST, CP, CDP, TSHX, MG #### [facility] [address] [place], [place] [phone] Family Nurse Practitioner: Ronaldo Reed MD #### LIPR #### [address] [address] Family Nurse Practitioner: Jaxon Irwin MD Eosinophils/100 WBC (Bld) 4 % Normal 0-5 [facility] Comment on above: Performed By: #### Z FAST, CP, CDP, TSHX, MG #### [facility] [address] [place], [place] [phone] Family Nurse Practitioner: Ronaldo Reed MD #### LIPR #### [address] [phone] Family Nurse Practitioner: Jaxon Irwin MD Erythrocyte distribution width (RBC) [Ratio] 13.3 % Normal 12.1-15.2 [facility] Comment on above: Performed By: #### Z FAST, CP, CDP, TSHX, MG #### [facility] [address] [place], [place] [phone] Family Nurse Practitioner: Ronaldo Reed MD #### LIPR #### [address] [phone] Family Nurse Practitioner: Jaxon Irwin MD Hematocrit (Bld) [Volume fraction] 40.2 % Normal 36.0-46.0 [facility] Comment on above: Performed By: #### Z FAST, CP, CDP, TSHX, MG #### [facility] [address] [place], [place] [phone] Family Nurse Practitioner: Ronaldo Reed MD #### LIPR #### [address] [id number] Family Nurse Practitioner: Jaxon Irwin MD Hemoglobin (Bld) [Mass/Vol] 13.5 g/dL Normal 12.0-16.0 [facility] Comment on above: Performed By: #### Z FAST, CP, CDP, TSHX, MG #### [facility] [address] [place], [place] [phone] Family Nurse Practitioner: Ronaldo Reed MD #### LIPR #### [address] [phone] Family Nurse Practitioner: Jaxon Irwin MD Immature granulocytes/100 WBC (Bld) 0 % Normal 0-5 [facility] Comment on above: Performed By: #### Z FAST, CP, CDP, TSHX, MG #### [facility] [address] [place], [place] [phone] Family Nurse Practitioner: Ronaldo Reed MD #### LIPR #### [address] [phone] Family Nurse Practitioner: Jaxon Irwin MD Lymphocytes (Bld) [#/Vol] 2.64 10*3/uL Normal 1.00-4.80 [facility] Comment on above: Performed By: #### Z FAST, CP, CDP, TSHX, MG #### [facility] [address] [place], [place] [phone] Family Nurse Practitioner: Ronaldo Reed MD #### LIPR #### [address] [phone] Family Nurse Practitioner: Jaxon Irwin MD Lymphocytes/100 WBC (Bld) 29 % Normal 15-40 [facility] Comment on above: Performed By: #### Z FAST, CP, CDP, TSHX, MG #### [facility] [address] [place] [address] Family Nurse Practitioner: Ronaldo Reed MD #### LIPR #### [address] [phone] Family Nurse Practitioner: Jaxon Irwin MD MCH (RBC) [Entitic mass] 30.8 pg Normal 26.0-34.0 [facility] Comment on above: Performed By: #### Z FAST, CP, CDP, TSHX, MG #### [facility] [address] [place] [address] Family Nurse Practitioner: Ronaldo Reed MD #### LIPR #### [address] [phone] Family Nurse Practitioner: Jaxon Irwin MD MCHC (RBC) [Mass/Vol] 33.6 g/dL Normal 31.0-37.0 [facility] Comment on above: Performed By: #### Z FAST, CP, CDP, TSHX, MG #### [facility] [address] [place] [address] Family Nurse Practitioner: Ronaldo Reed MD #### LIPR #### [address] [address] Family Nurse Practitioner: Jaxon Irwin MD MCV (RBC) [Entitic vol] 91.6 fL Normal 80.0-100.0 [facility] Comment on above: Performed By: #### Z FAST, CP, CDP, TSHX, MG #### [facility] [address] [place] [address] Family Nurse Practitioner: Ronaldo Reed MD #### LIPR #### [address] [id number] Family Nurse Practitioner: Jaxon Irwin MD Monocytes (Bld) [#/Vol] 0.49 10*3/uL Normal 0.00-1.00 [facility] Comment on above: Performed By: #### Z FAST, CP, CDP, TSHX, MG #### [facility] [address] [place] [address] Family Nurse Practitioner: Ronaldo Reed MD #### LIPR #### [place] [address] Family Nurse Practitioner: Jaxon Irwin MD Monocytes/100 WBC (Bld) 6 % Normal 4-8 [facility] Comment on above: Performed By: #### Z FAST, CP, CDP, TSHX, MG #### [facility] [address] [place] [phone] ( Family Nurse Practitioner: Ronaldo Reed MD #### LIPR #### [address] [phone] Family Nurse Practitioner: Jaxon Irwin MD Neutrophil (Seg) 61 % Normal 47-75 [facility] Comment on above: Performed By: #### Z FAST, CP, CDP, TSHX, MG #### [facility] [address] [place] [phone] ( Family Nurse Practitioner: Ronaldo Reed MD #### LIPR #### [address] [phone] Family Nurse Practitioner: Jaxon Irwin MD Platelet mean volume (Bld) [Entitic vol] 9.4 fL Normal 6.0-12.0 [facility] Comment on above: Performed By: #### Z FAST, CP, CDP, TSHX, MG #### [facility] [address] [place] [phone] ( Family Nurse Practitioner: Ronaldo Reed MD #### LIPR #### [address] [phone] Family Nurse Practitioner: Jaxon Irwin MD Platelets (Bld) [#/Vol] 298 10*3/uL Normal 140-450 [facility] Comment on above: Performed By: #### Z FAST, CP, CDP, TSHX, MG #### [facility] [address] [place] [phone] ( Family Nurse Practitioner: Ronaldo Reed MD #### LIPR #### [place] [address] Family Nurse Practitioner: Jaxon Irwin MD RBC (Bld) [#/Vol] 4.39 10*6/uL Normal 4.00-5.20 [facility] Comment on above: Performed By: #### Z FAST, CP, CDP, TSHX, MG #### [facility] [address] [place] [phone] ( Family Nurse Practitioner: Ronaldo Reed MD #### LIPR #### [place] [address] Family Nurse Practitioner: Jaxon Irwin MD WBC (Bld) [#/Vol] 9.0 10*3/uL Normal 3.5-11.0 [facility] Comment on above: Performed By: #### Z FAST, CP, CDP, TSHX, MG #### [facility] [address] [place], [place] [phone] Family Nurse Practitioner: Ronaldo Reed MD #### LIPR #### [place] [address] [place], [place] [phone] Family Nurse Practitioner: Jaxon Irwin MD Comp Metabolic Profon 2022 Albumin [Mass/Vol] 3.8 g/dL Normal 3.5-5.2 [facility] Comment on above: Performed By: #### Z FAST, CP, CDP, TSHX, MG #### [facility] [address] [place], [place] [phone] Family Nurse Practitioner: Ronaldo Reed MD #### LIPR #### [address] [phone] Family Nurse Practitioner: Jaxon Irwin MD Alkaline Phos 120 U/L High 35-104 [facility] Comment on above: Performed By: #### Z FAST, CP, CDP, TSHX, MG #### [facility] [address] [place], [place] [phone] Family Nurse Practitioner: Ronaldo Reed MD #### LIPR #### [address] [phone] Family Nurse Practitioner: Jaxon Irwin MD ALT [Catalytic activity/Vol] 15 U/L Normal 5-33 [facility] Comment on above: Performed By: #### Z FAST, CP, CDP, TSHX, MG #### [facility] [address] [place], [place] [phone] Family Nurse Practitioner: Ronaldo Reed MD #### LIPR #### [address] [phone] Family Nurse Practitioner: Jaxon Irwin MD Anion gap [Moles/Vol] 11 mmol/L Normal 9-17 [facility] Comment on above: Performed By: #### Z FAST, CP, CDP, TSHX, MG #### [facility] [address] [place], [place] [phone] Family Nurse Practitioner: Ronaldo Reed MD #### LIPR #### [address] [phone] Family Nurse Practitioner: Jaxon Irwin MD AST [Catalytic activity/Vol] 15 U/L Normal <32 [facility] Comment on above: Performed By: #### Z FAST, CP, CDP, TSHX, MG #### [facility] [address] [place], [place] [phone] Family Nurse Practitioner: Ronaldo Reed MD #### LIPR #### [address] [phone] Family Nurse Practitioner: Jaxon Irwin MD Bilirubin [Mass/Vol] 0.6 mg/dL Normal 0.3-1.2 [facility] Comment on above: Performed By: #### Z FAST, CP, CDP, TSHX, MG #### [facility] [address] [place], [place] [phone] Family Nurse Practitioner: Ronaldo Reed MD #### LIPR #### [address] [phone] Family Nurse Practitioner: Jaxon Irwin MD BUN/CRE Ratio 30 High 9-20 [facility] Comment on above: Performed By: #### Z FAST, CP, CDP, TSHX, MG #### [facility] [address] [place], [place] [phone] Family Nurse Practitioner: Ronaldo Reed MD #### LIPR #### [address] [phone] Family Nurse Practitioner: Jaxon Irwin MD Calcium [Mass/Vol] 10.0 mg/dL Normal 8.6-10.4 [facility] Comment on above: Performed By: #### Z FAST, CP, CDP, TSHX, MG #### [facility] [address] [place] [address] Family Nurse Practitioner: Ronaldo Reed MD #### LIPR #### [facility] [address] [place], [place] [phone] Family Nurse Practitioner: Jaxon Irwin MD Chloride [Moles/Vol] 98 mmol/L Normal 98-107 [facility] Comment on above: Performed By: #### Z FAST, CP, CDP, TSHX, MG #### [facility] [address] [place] [address] Family Nurse Practitioner: Ronaldo Reed MD #### LIPR #### [facility] [address] [place], [place] [phone] Family Nurse Practitioner: Jaxon Irwin MD CO2 [Moles/Vol] 28 mmol/L Normal 20-31 [facility] Comment on above: Performed By: #### Z FAST, CP, CDP, TSHX, MG #### [facility] [address] [place] [address] Family Nurse Practitioner: Ronaldo Reed MD #### LIPR #### [facility] [address] [place], [place] [phone] Family Nurse Practitioner: Jaxon Irwin MD Creatinine [Mass/Vol] 0.8 mg/dL Normal 0.5-0.9 [facility] Comment on above: Performed By: #### Z FAST, CP, CDP, TSHX, MG #### [facility] [address] [place] [address] Family Nurse Practitioner: Ronaldo Reed MD #### LIPR #### [facility] [address] [place], [place] [phone] Family Nurse Practitioner: Jaxon Irwin MD GFR/1.73 sq M.predicted among non-blacks MDRD (S/P/Bld) [Vol rate/Area] mL/min/{1.73_m2} Normal >60 [facility] Comment on above: Result Comment: These [...] Z FAST, CP, CDP, TSHX, MG #### [facility] [address] [place], [place] [phone] Family Nurse Practitioner: Ronaldo Reed MD #### LIPR #### [address] [address] Family Nurse Practitioner: Jaxon Irwin MD Glucose [Mass/Vol] 126 mg/dL High 70-99 [facility] Comment on above: Performed By: #### Z FAST, CP, CDP, TSHX, MG #### [facility] [address] [place] [address] Family Nurse Practitioner: Ronaldo Reed MD #### LIPR #### [address] [address] Family Nurse Practitioner: Jaxon Irwin MD Potassium [Moles/Vol] 3.9 mmol/L Normal 3.7-5.3 [facility] Comment on above: Performed By: #### Z FAST, CP, CDP, TSHX, MG #### [facility] [address] [place] [address] Family Nurse Practitioner: Ronaldo Reed MD #### LIPR #### [address] [address] Family Nurse Practitioner: Jaxon Irwin MD Protein [Mass/Vol] 7.3 g/dL Normal 6.4-8.3 [facility] Comment on above: Performed By: #### Z FAST, CP, CDP, TSHX, MG #### [facility] [address] [place], [place] [phone] Family Nurse Practitioner: Ronaldo Reed MD #### LIPR #### [place] [address] [place], [place] 4842708 Family Nurse Practitioner: Jaxon Irwin MD Sodium [Moles/Vol] 137 mmol/L Normal 135-144 [facility] Comment on above: Performed By: #### Z FAST, CP, CDP, TSHX, MG #### [facility] [address] [place], [place] [phone] Family Nurse Practitioner: Ronaldo Reed MD #### LIPR #### [address] [phone] Family Nurse Practitioner: Jaxon Irwin MD Urea nitrogen [Mass/Vol] 24 mg/dL High 8- [facility] Comment on above: Performed By: #### Z FAST, CP, CDP, TSHX, MG #### [facility] [address] [place], [place] [phone] Family Nurse Practitioner: Ronaldo Reed MD #### LIPR #### [address] [phone] Family Nurse Practitioner: Jaxon Irwin MD Lipid Profileon 09-06-2023 Cholesterol [Mass/Vol] 166 mg/dL Normal <200 [facility] Comment on above: Result Comment: Cholesterol Guidelines: <200 Desirable 200-240 Borderline >240 Undesirable Performed By: #### Z FAST, CP, CDP, TSHX, MG #### [facility] [address] [place], [place] [phone] Family Nurse Practitioner: Ronaldo Reed MD #### LIPR #### [address] [phone] Family Nurse Practitioner: Jaxon Irwin MD Cholesterol in HDL [Mass/Vol] 54 mg/dL Normal >40 [facility] Comment on above: Result Comment: HDL Guidelines: <40 Undesirable 40-59 Borderline >59 Desirable Performed By: #### Z FAST, CP, CDP, TSHX, MG #### [facility] [address] [place], [place] 6541590 Family Nurse Practitioner: Ronaldo Reed MD #### LIPR #### [address] [phone] Family Nurse Practitioner: Jaxon Irwin MD Cholesterol in LDL [Mass/Vol] 90 mg/dL Normal 0-130 [facility] Comment on above: Result Comment: LDL Guidelines: <100 Desirable 100-129 Near to/above Desirable 130-159 Borderline >159 Undesirable Direct (measured) LDL and calculated LDL are not interchangeable tests. Performed By: #### Z FAST, CP, CDP, TSHX, MG #### [facility] [address] [place], [place] [phone] Family Nurse Practitioner: Ronaldo Reed MD #### LIPR #### [facility] [employer] [address] [place] [address] [phone] Family Nurse Practitioner: Jaxon Irwin MD Cholesterol.total/Chol esterol in HDL [Mass ratio] 3.1 {ratio} Normal <5 [facility] Comment on above: Performed By: #### Z FAST, CP, CDP, TSHX, MG #### [facility] [address] [place], [place] [phone] Family Nurse Practitioner: Ronaldo Reed MD #### LIPR #### [facility] [employer] [facility] [place], [place] 5809208 Family Nurse Practitioner: Jaxon Irwin MD Triglyceride [Mass/Vol] 108 mg/dL Normal <150 [facility] Comment on above: Result Comment: Triglyceride Guidelines: <150 Desirable 150-199 Borderline 200-499 High >499 Very high Based on AHA Guidelines for fasting triglyceride, August 2012. Performed By: #### Z FAST, CP, CDP, TSHX, MG #### [facility] [address] [place] [address] Family Nurse Practitioner: Ronaldo Reed MD #### LIPR #### [place] [address] [place], [place] 0358308 Family Nurse Practitioner: Jaxon Irwin MD Magnesiumon 09-06-2023 Magnesium [Mass/Vol] 1.9 mg/dL Normal 1.6-2.6 [facility] Comment on above: Performed By: #### Z FAST, CP, CDP, TSHX, MG #### [facility] [address] [place] [address] Family Nurse Practitioner: Ronaldo Reed MD #### LIPR #### [address] [phone] Family Nurse Practitioner: Jaxon Irwin MD Patient fasting?on 3 Patient fasting? YES Normal [facility] Comment on above: Performed By: #### Martha FAST, CP, CDP, TSHX, MG #### [facility] [address] [place] [phone] ( Family Nurse Practitioner: Ronaldo Reed MD #### LIPR #### [address] [phone] Family Nurse Practitioner: Jaxon Irwin MD RAD - MISCon 09-06-2023 RAD - MISC [id number] #1.00TIFF Normal [facility] TSH w/reflex to FT4on 2022 Thyroid Stim. Horm. 2.32 uIU/mL Normal 0.30-5.00 [facility] Comment on above: Performed By: #### Z FAST, CP, CDP, TSHX, MG #### [facility] [address] [place] [address] Family Nurse Practitioner: Ronaldo Reed MD #### LIPR #### [address] [id number] Family Nurse Practitioner: Jaxon Irwin MD XR CHEST (2 VW)on [...] Godoy Jr., MD 09/06/23 Final result Normal [facility] POTASSIUMon 03-05-2023 Potassium [Moles/Vol] 4.0 mmol/L Normal 3.5-5.1 [facility] Comment on above: Performed By: #### K #### [facility] [address] [place] [address] Dr. Lacey Corado BNPon 02-28-2023 Natriuretic peptide B (Bld) [Mass/Vol] 60.0 pg/mL Normal <=1,800.0 [facility] Comment on above: Performed By: #### B MP, BNP #### [facility] [address] [place] [address] Dr. Lacey Corado PROF CHEM 8 (BAS METB)on Anion gap [Moles/Vol] 10.8 mmol/L Normal [facility] Comment on above: Performed By: #### B MP, BNP #### [facility] [address] [place] [address] Dr. Lacey Corado Calcium [Mass/Vol] 9.0 mg/dL Normal 8.5-10.1 [facility] Comment on above: Performed By: #### B MP, BNP #### [facility] [address] [place] [address] Dr. Lacey Corado Chloride [Moles/Vol] 103 mmol/L Normal 98-107 [facility] Comment on above: Performed By: #### B MP, BNP #### [facility] [address] [place] [address] Dr. Lacey Corado CO2 [Moles/Vol] 28.5 mmol/L Normal 21.0-32.0 [facility] Comment on above: Performed By: #### B MP, BNP #### [facility] [address] [place] [address] [address] Lacey Corado Creatinine [Mass/Vol] 0.81 mg/dL Normal 0.55-1.02 [facility] Comment on above: Performed By: #### B MP, BNP #### [facility] [address] [place] [address] [address] Lacey Corado EGFR-AF BELIZEAN >60 Normal >=60 [facility] Comment on above: Performed By: #### B MP, BNP #### [facility] [address] [place] [address] [address] Lacey Corado EGFR-NON AF BELIZEAN >60 Normal >=60 [facility] Comment on above: Performed By: #### B MP, BNP #### [facility] [address] [place] [address] [address] Lacey Corado Glucose [Mass/Vol] 111 mg/dL Critically high 74-106 [facility] Comment on above: Performed By: #### B MP, BNP #### [facility] [address] [place] [address] [address] Lacey Corado Potassium [Moles/Vol] 3.3 mmol/L Critically low 3.5-5.1 [facility] Comment on above: Performed By: #### B MP, BNP #### [facility] [address] [address] [address] Lacey Corado Sodium [Moles/Vol] 139 mmol/L Normal 136-145 [facility] Comment on above: Performed By: #### B MP, BNP #### [facility] [address] [address] [address] Lacey Corado Urea nitrogen [Mass/Vol] 14.0 mg/dL Normal 7.0-18.0 [facility] Comment on above: Performed By: #### B MP, BNP #### [facility] Laboratory [address] [address] [address] Lacey Corado Urea nitrogen/Creatinine [Mass ratio] 17.3 mg/mg Normal [facility] Comment on above: Performed By: #### B MP, BNP #### [facility] [address], [place] [address] Dr. Lacey Corado PROF CHEM 8 (BAS METB)on Anion gap [Moles/Vol] 14.1 mmol/L Normal [facility] Comment on above: Performed By: #### B MP ####[facility] [address] [address]Dr. Lacey Corado Calcium [Mass/Vol] 9.2 mg/dL Normal 8.5-10.1 [facility] Comment on above: Performed By: #### B MP ####[facility] [address] [address]Dr. Lacey Corado Chloride [Moles/Vol] 103 mmol/L Normal 98-107 [facility] Comment on above: Performed By: #### B MP ####[facility] [address] [address]Dr. Lacey Corado CO2 [Moles/Vol] 28.4 mmol/L Normal 21.0-32.0 [facility] Comment on above: Performed By: #### B MP ####[facility] [address] [address]Dr. Lacey Corado Creatinine [Mass/Vol] 0.71 mg/dL Normal 0.55-1.02 [facility] Comment on above: Performed By: #### B MP ####[facility] [address] [address]Dr. Lacey Corado EGFR-AF BELIZEAN >60 Normal >=60 [facility] Comment on above: Performed By: #### B MP ####[facility] [address] [address]Dr. Lacey Corado EGFR-NON AF BELIZEAN >60 Normal >=60 [facility] Comment on above: Performed By: #### B MP ####[facility] [address] [address]Dr. Lacey Corado Glucose [Mass/Vol] 139 mg/dL Critically high 74-106 [facility] Comment on above: Performed By: #### B MP ####[facility] [address] [address]Dr. Lacey Corado Potassium [Moles/Vol] 3.5 mmol/L Normal 3.5-5.1 [facility] Comment on above: Performed By: #### B MP ####[facility] [address] [place], [place] [address]Dr. Lacey Mak Sodium [Moles/Vol] 142 mmol/L Normal 136-145 [facility] Comment on above: Performed By: #### B MP ####[facility] [address] [place], [place] [address]Dr. Lacey Mak Urea nitrogen [Mass/Vol] 14.0 mg/dL Normal 7.0-18.0 [facility] Comment on above: Performed By: #### B MP ####[facility] [address] [place], [place] [address]Dr. Lacey Mak Urea nitrogen/Creatinine [Mass ratio] 19.7 mg/mg Normal [facility] Comment on above: Performed By: #### B MP ####[facility] Bosivlfasi[address] [place], [place] [address]Dr. Lacey Mak CBC AUTO DIFFon 01-26-2023 BASO # 0.1 103/ul Normal 0.0-0.1 [facility] Comment on above: Performed By: #### C BC ####[facility] [address] [place], [place] [address]Dr. Lacey Mak Basophils/100 WBC (Bld) 0.5 % Normal 0.2-2.0 [facility] Comment on above: Performed By: #### C BC ####[facility] [address]ios[address]be[address] [place], [place] [address]Dr. Lacey Mak EO # 0.4 103/ul Normal 0.0-0.7 [facility] Comment on above: Performed By: #### C BC ####[facility] [address]ou[address] [place], [place] [address]Dr. Lacey Corado Eosinophils/100 WBC (Bld) 3.6 % Normal 0.9-7.0 [facility] Comment on above: Performed By: #### C BC ####[facility] [address] [address]Dr. Lacey Corado Erythrocyte distribution width (RBC) [Ratio] 13.6 % Normal 11.0-15.0 [facility] Comment on above: Performed By: #### C BC ####[facility] [address] [place], [place] [address]Dr. Lacey Corado Hematocrit (Bld) [Volume fraction] 37.9 % Normal 36.0-48.0 [facility] Comment on above: Performed By: #### C BC ####[facility] G[address]ia[address] [place], [place] [address]Dr. Lacey Corado Hemoglobin (Bld) [Mass/Vol] 12.4 g/dL Normal 12.0-16.0 [facility] Comment on above: Performed By: #### C BC ####[facility] [address] [place], [place] [address]Dr. Lacey Corado IG # 0.04 10e3/ul Critically high 0.00-0.03 [facility] Comment on above: Performed By: #### C BC ####[facility] [address]ax[address] [place], [place] [address]Dr. Lacey Corado IG % 0.4 % Normal 0.0-0.5 [facility] Comment on above: Performed By: #### C BC ####[facility] [address] [place], [place] [address]Dr. Lacey Corado LYMPH # 1.9 103/ul Normal 1.2-3.8 [facility] Comment on above: Performed By: #### C BC ####[facility] Ojbusebske[address] [place], [place] [address]Dr. Lacey Corado Lymphocytes/100 WBC (Bld) 18.6 % Critically low 20.5-60.0 [facility] Comment on above: Performed By: #### C BC ####[facility] [address] [place], [place] [address]Dr. Lacey Corado MANUAL DIFF REQ NO Normal [facility] Comment on above: Performed By: #### C BC ####[facility] [address] [id number]. Lacey Mak MCH (RBC) [Entitic mass] 30.5 pg Normal 26.7-34.0 [facility] Comment on above: Performed By: #### C BC ####[facility] [address] [id number]. Lacey Mak MCHC (RBC) [Mass/Vol] 32.7 g/dL Normal 29.9-35.2 [facility] Comment on above: Performed By: #### C BC ####[facility] [address] [address]Dr. Maria Fernandagaurav Corado MCV (RBC) [Entitic vol] 93.3 fL Normal 81.0-99.0 [facility] Comment on above: Performed By: #### C BC ####[facility] [address] [place], [place] [address]Dr. Lacey Corado MONO # 0.8 103/ul Normal 0.3-0.8 [facility] Comment on above: Performed By: #### C BC ####[facility] [address] [address]Dr. Lacey Corado Monocytes/100 WBC (Bld) 7.8 % Normal 1.7-12.0 [facility] Comment on above: Performed By: #### C BC ####[facility] [address] [address]Dr. Lacey Corado NEUT # 7.0 103/ul Critically high 1.4-6.5 [facility] Comment on above: Performed By: #### C BC ####[facility] [address] [place], [place] [id number]. Lacey Corado Neutrophils/100 WBC (Bld) 69.1 % Normal 43.0-75.0 [facility] Comment on above: Performed By: #### C BC ####[facility] [address] [id number]. Lacey Corado Platelet mean volume (Bld) [Entitic vol] 9.4 fL Critically low 9.5-13.5 [facility] Comment on above: Performed By: #### C BC ####[facility] [address] [place], [place] [address]Ns. Lacey Corado PLT 355 103/ul Normal 150-450 [facility] Comment on above: Performed By: #### C BC ####[facility] [address] [place], [place] [address]Yq. Lacey Corado RBC 4.06 106/ul Critically low 4.20-5.40 [facility] Comment on above: Performed By: #### C BC ####[facility] [address] [place], [place] [address]Sj. Lacey Corado WBC 10.1 103/ul Normal 4.0-11.0 [facility] Comment on above: Performed By: #### C BC ####[facility] [address] [place], [place] [address] HEAD WO CONon 01-26-2023 CT [...] Reyes TRACY Date: 2023-01-26 01:23 Normal [facility] PROF 14(COMP METB)on 023 Albumin [Mass/Vol] 3.3 g/dL Critically low 3.4-5.0 [facility] Comment on above: Performed By: #### C MP #### [facility] [address], [place] [address] Dr. Lacey Corado Albumin/Globulin [Mass ratio] 0.8 {ratio} Normal [facility] Comment on above: Performed By: #### C MP #### [facility] [address] [address] [address] Lacey Corado ALP [Catalytic activity/Vol] 134 U/L Critically high 46-116 [facility] Comment on above: Performed By: #### C MP #### [facility] [address] [address] [address] Lacey Corado ALT [Catalytic activity/Vol] 21 U/L Normal 14-59 [facility] Comment on above: Performed By: #### C MP #### [facility] [address] [address] [address] Lacey Corado Anion gap [Moles/Vol] 15.5 mmol/L Normal [facility] Comment on above: Performed By: #### C MP #### [facility] [address] [place] [address] Dr. Lacey Corado AST [Catalytic activity/Vol] 19 U/L Normal 15-37 [facility] Comment on above: Performed By: #### C MP #### [facility] [address] [address] [address] Lacey Corado Bilirubin [Mass/Vol] 0.5 mg/dL Normal 0.2-1.0 [facility] Comment on above: Performed By: #### C MP #### [facility] [address] [place] [address] Dr. Lacey Corado Calcium [Mass/Vol] 9.1 mg/dL Normal 8.5-10.1 [facility] Comment on above: Performed By: #### C MP #### [facility] [address] [address] [address] Lacey Corado Chloride [Moles/Vol] 106 mmol/L Normal 98-107 [facility] Comment on above: Performed By: #### C MP #### [facility] [address] [address] [address] Lacey Corado CO2 [Moles/Vol] 26.2 mmol/L Normal 21.0-32.0 [facility] Comment on above: Performed By: #### C MP #### [facility] [address] [address] [address] Lacey Corado Creatinine [Mass/Vol] 0.95 mg/dL Normal 0.55-1.02 [facility] Comment on above: Performed By: #### C MP #### [facility] [address] [address] [address] Lacey Corado EGFR-AF BELIZEAN >60 Normal >=60 [facility] Comment on above: Performed By: #### C MP #### [facility] [address] [address] [address] Lacey Corado EGFR-NON AF BELIZEAN 56 mL/min/1.73m2 Critically low >=60 [facility] Comment on above: Performed By: #### C MP #### [facility] [address] [address] [address] Lacey Corado Globulin (S) [Mass/Vol] 4.0 g/dL Normal [facility] Comment on above: Performed By: #### C MP #### [facility] [address] [address] [address] Lacey Corado Glucose [Mass/Vol] 135 mg/dL Critically high 74-106 [facility] Comment on above: Performed By: #### C MP #### [facility] [address] [address] [address] Lacey Corado Potassium [Moles/Vol] 3.7 mmol/L Normal 3.5-5.1 [facility] Comment on above: Performed By: #### C MP #### [facility] [address] [address] [address] Lacey Corado Protein [Mass/Vol] 7.3 g/dL Normal 6.4-8.2 [facility] Comment on above: Performed By: #### C MP #### [facility] [address] [address] [address] Lacey Corado Sodium [Moles/Vol] 144 mmol/L Normal 136-145 [facility] Comment on above: Performed By: #### C MP #### [facility] [address] [address] [address] Lacey Corado Urea nitrogen [Mass/Vol] 17.0 mg/dL Normal 7.0-18.0 [facility] Comment on above: Performed By: #### C MP #### [facility] [address] [place] [address] Dr. Lacey Corado Urea nitrogen/Creatinine [Mass ratio] 17.9 mg/mg Normal [facility] Comment on above: Performed By: #### C MP #### [facility] [address] [place] [address] Dr. Lacey Corado PROTIMEon 01-26-2023 INR Coag (PPP) [Relative time] 1.03 {INR} Normal [facility] Comment on above: Performed By: #### P TT, PT #### [facility] [address] [place] [address] Dr. Lacey Corado INR GUIDELINES SEE BELOW Normal [facility] Comment on above: Result Comment: JAD RED INR: 2.0 - 3.0 CONDITIONS NOT LISTED BELOW 2.5 - 3.5 FOR PROSTHETIC HEART VALVE REPLACEMENT 2.5 - 3.5 RECURRENT THROMBOSIS Performed By: #### P TT, PT #### [facility] [address] [place] [address] Dr. Lacey Corado PT Coag (PPP) [Time] 10.9 s Normal 9.0-11.6 [facility] Comment on above: Performed By: #### P TT, PT #### [facility] [address] [place] [address] Dr. Lacey Corado PTTon 01-26-2023 aPTT Coag (Bld) [Time] 22.2 s Critically low 22.3-36.2 [facility] Comment on above: Performed By: #### P TT, PT #### [facility] [address] [place] [address] Dr. Lacey Corado XR FEMUR RTon 01-26-2023 [...] right femoral head is excluded from the [id number]. There are advanced degenerative changes of the [...] Reyes TRACY Date: 2023-01-26 01:27 Normal [facility] EKG Rhythm Stripon 3 [facility] EKG [facility]hythm Stripon 3 [facility] R[facility]GE LAB [facility] EKG [facility]hythm Stripon 3 [facility] with 1 degree AV block [facility] with 1st degree AV block [facility] LAB [facility] EKG [facility]hythm Stripon 3 [facility] R[facility]GE [facility] R[facility] LAB [facility] RIDGE LAB [facility] Basic Metabolic Panelon 11-27 Anion gap [Moles/Vol] 10 mmol/L 9 - 17 mmol/L [facility] Calcium [Mass/Vol] 9.2 mg/dL 8.6 - 10. 4 mg/dL [facility] Chloride [Moles/Vol] 101 mmol/L 98 - 10 7 mmol/L [facility] CO2 [Moles/Vol] 26 mmol/L 20 - 31 mmol/L [facility] Creatinine [Mass/Vol] 0.9 mg/dL 0.50 - 0.90 mg/dL [facility] GFR/1.73 sq M.predicted MDRD (S/P/Bld) [Vol rate/Area] - PINF [facility] Comment on above: These results are [...] 100 mg/dL High 70 - 99 mg/dL [facility] Interpretation and review of laboratory results Abnormal [facility] Potassium [Moles/Vol] 4.3 mmol/L 3.7 - 5.3 mmol/L [facility] Sodium [Moles/Vol] 137 mmol/L 135 - 144 mmol/L [facility] Urea nitrogen (BldV) [Mass/Vol] 37 mg/dL High 8 - 23 mg/dL [facility] Urea nitrogen/Creatinine (Bld) [Mass ratio] 41 High 9 - 20 [facility] Basic Metabolic Profon 12-22 Anion gap [Moles/Vol] 10 mmol/L Normal 9-17 [facility] Comment on above: Performed By: #### U AX #### [facility] Lab [address] [place] [address] Family Nurse Practitioner: Ronaldo Reed MD BUN/CRE Ratio 41 High 9-20 [facility] Comment on above: Performed By: #### U AX #### [facility] Lab [address] [place], [place] [id number] Family Nurse Practitioner: Ronaldo Reed MD Calcium [Mass/Vol] 9.2 mg/dL Normal 8.6-10.4 [facility] Comment on above: Performed By: #### U AX #### [facility] Lab [address] [place], [place] [id number] Family Nurse Practitioner: Ronaldo Reed MD Chloride [Moles/Vol] 101 mmol/L Normal 98-107 [facility] Comment on above: Performed By: #### U AX #### [facility] Lab [address] [place] [address] Family Nurse Practitioner: Ronaldo Reed MD CO2 [Moles/Vol] 26 mmol/L Normal 20-31 [facility] Comment on above: Performed By: #### U AX #### [facility] Lab [address] [place] [address] Family Nurse Practitioner: Ronaldo Reed MD Creatinine [Mass/Vol] 0.90 mg/dL Normal 0.50-0.90 [facility] Comment on above: Performed By: #### U AX #### [facility] Lab [address] [place] [address] Family Nurse Practitioner: Ronaldo Reed MD GFR/1.73 sq M.predicted among non-blacks MDRD (S/P/Bld) [Vol rate/Area] mL/min/{1.73_m2} Normal >60 [facility] Comment on above: Result Comment: These [...] secretion. Performed By: #### U AX #### [facility] Lab [address] [place], [place] [id number] Family Nurse Practitioner: Ronaldo Reed MD Glucose [Mass/Vol] 100 mg/dL High 70-99 [facility] Comment on above: Performed By: #### U AX #### [facility] Lab [address] [place], [place] [id number] Family Nurse Practitioner: Ronaldo Reed MD Potassium [Moles/Vol] 4.3 mmol/L Normal 3.7-5.3 [facility] Comment on above: Performed By: #### U AX #### [facility] Lab [address] [place], [place] [id number] Family Nurse Practitioner: Ronaldo Reed MD Sodium [Moles/Vol] 137 mmol/L Normal 135-144 [facility] Comment on above: Performed By: #### U AX #### [facility] Lab [address] [place], [place] [id number] Family Nurse Practitioner: Ronaldo Reed MD Urea nitrogen [Mass/Vol] 37 mg/dL High 8-23 [facility] Comment on above: Performed By: #### U AX #### [facility] Lab [address] [place], [place] [id number] Family Nurse Practitioner: Ronaldo Reed MD EKG 12 Leadon 12-22-2022 Atrial Rate 75 BPM [facility] Work Phone: P [place] 26 degrees [facility] [employer] Phone: P-R Interval 222 ms [facility] [employer] Phone: Q-T Interval 376 ms [facility] [employer] Phone: QRS Duration 92 ms [facility] [employer] Phone: QTc Calculation (Bazett) 419 ms [facility] [employer] Work Phone: R [place] 12 degrees [facility] Work Phone: T [place] 14 degrees [facility] Work Phone: Ventricular Rate 75 BPM [facility] Work Phone: Sinus rhythm with 1st degree A-V block Possible Anterior infarct , age undetermined Abnormal ECG [facility] Андрей Rodriguez MD - 12/22/2022 Sinus rhythm with 1st degree A-V block Possible Anterior infarct , age undetermined Abnormal ECG [facility] Work Phone: [facility] Work Phone: EKG Rhythm Stripon 3 [facility] absent T wave? prolonged QT? [facility] absent T wave? prolonged QT? [facility] Troponinon 12-22-2022 Troponin, High Sens 33 ng/L High 0-14 [facility] Comment on above: Result Comment: High Sensitivity Troponin values cannot be compared with other Troponin methodologies. Performed By: #### U AX #### [facility] Lab [address] [place] [address] Family Nurse Practitioner: Ronaldo Reed MD Basic Metabolic Panelon 11-27 Anion gap [Moles/Vol] 12 mmol/L 9 - 17 mmol/L [facility] Calcium [Mass/Vol] 9.6 mg/dL 8.6 - 10. 4 mg/dL [facility] Chloride [Moles/Vol] 100 mmol/L 98 - 10 7 mmol/L [facility] CO2 [Moles/Vol] 22 mmol/L 20 - 31 mmol/L [facility] Creatinine [Mass/Vol] 1.26 mg/dL High 0.50 - 0.90 mg/dL [facility] GFR/1.73 sq M.predicted MDRD (S/P/Bld) [Vol rate/Area] 42 mL/min/{1.73_m2} Low - PINF [facility] Comment on above: These results are [...] 119 mg/dL High 70 - 99 mg/dL [facility] Interpretation and review of laboratory results Abnormal [facility] Potassium [Moles/Vol] 5.2 mmol/L 3.7 - 5.3 mmol/L [facility] Sodium [Moles/Vol] 134 mmol/L Low 135 - 144 mmol/L [facility] Urea nitrogen (BldV) [Mass/Vol] 38 mg/dL High 8 - 23 mg/dL [facility] Urea nitrogen/Creatinine (Bld) [Mass ratio] 30 High 9 - 20 [facility] Basic Metabolic Profon 12-21 Anion gap [Moles/Vol] 12 mmol/L Normal 9-17 [facility] Comment on above: Performed By: #### U AX #### [facility] [address] [place] [address] Family Nurse Practitioner: Ronaldo Reed MD BUN/CRE Ratio 30 High 9-20 [facility] Comment on above: Performed By: #### U AX #### [facility] Lab [address] [place] [address] Family Nurse Practitioner: Ronaldo Reed MD Calcium [Mass/Vol] 9.6 mg/dL Normal 8.6-10.4 [facility] Comment on above: Performed By: #### U AX #### [facility] Lab [address] [place] [address] Family Nurse Practitioner: Ronaldo Reed MD Chloride [Moles/Vol] 100 mmol/L Normal 98-107 [facility] Comment on above: Performed By: #### U AX #### [facility] Lab [address] [place] [address] Family Nurse Practitioner: Ronaldo Reed MD CO2 [Moles/Vol] 22 mmol/L Normal 20-31 [facility] Comment on above: Performed By: #### U AX #### [facility] Lab [address] [place] [address] Family Nurse Practitioner: Ronaldo Reed MD Creatinine [Mass/Vol] 1.26 mg/dL High 0.50-0.90 [facility] Comment on above: Performed By: #### U AX #### [facility] Lab [address] [place] [address] Family Nurse Practitioner: Ronaldo Reed MD GFR/1.73 sq M.predicted among non-blacks MDRD (S/P/Bld) [Vol rate/Area] 42 mL/min/{1.73_m2} Low >60 [facility] Comment on above: Result Comment: These [...] secretion. Performed By: #### U AX #### [facility] Lab [address] [place] [address] Family Nurse Practitioner: Ronaldo Reed MD Glucose [Mass/Vol] 119 mg/dL High 70-99 [facility] Comment on above: Performed By: #### U AX #### [facility] Lab [address] [place] [address] Family Nurse Practitioner: Ronaldo Reed MD Potassium [Moles/Vol] 5.2 mmol/L Normal 3.7-5.3 [facility] Comment on above: Performed By: #### U AX #### [facility] Lab [address] [place] [address] Family Nurse Practitioner: Ronaldo Reed MD Sodium [Moles/Vol] 134 mmol/L Low 135-144 [facility] Comment on above: Performed By: #### U AX #### [facility] [address] [place] [address] Family Nurse Practitioner: Ronaldo Reed MD Urea nitrogen [Mass/Vol] 38 mg/dL High 8-23 [facility] Comment on above: Performed By: #### U AX #### [facility] [address] [place] [address] Family Nurse Practitioner: Ronaldo Reed MD CBC with Auto Differentialon 12-21-2022 Absolute Eos # 0.30 [facility] Absolute Lymph # 2.50 [facility] Absolute [place] # 0.60 [facility] Basophils (Bld) [#/Vol] 0.00 10*3/uL [facility] Basophils/100 WBC (Bld) 0 % 0 - 2 % [facility] Differential Type YES [facility] Eosinophils/100 WBC (Bld) 2 % 0 - 5 % [facility] Hematocrit (Bld) [Volume fraction] 34.5 % Low 36 - 46 % [facility] Hemoglobin (Bld) [Mass/Vol] 11.4 g/dL Low 12.0 - 16.0 g/dL [facility] Interpretation and review of laboratory results Abnormal [facility] Lymphocytes/100 WBC (Bld) 23 % 15 - 40 % [facility] MCH (RBC) [Entitic mass] 31.5 pg 26 - 34 pg [facility] MCHC (RBC) [Mass/Vol] 33.0 g/dL 31 - 37 g/dL [facility] MCV (RBC) [Entitic vol] 95.2 fL 80 - 100 fL [facility] Monocytes/100 WBC (Bld) 5 % 4 - 8 % [facility] Platelet distribution width (Bld) [Ratio] 14.1 % 12.1 - 15.2 % [facility] Platelets (Bld) [#/Vol] 428 10*3/uL [facility] RBC (Bld) [#/Vol] 3.63 10*6/uL Low 4.0 - 5.2 m/uL [facility] Segmented neutrophils/100 WBC (Bld) 70 % 47 - 75 % [facility] Segs Absolute 7.50 High [facility] WBC (Bld) [#/Vol] 10.9 10*3/uL [facility] CBC with Diffon 12-21-2022 Abs. Basophil 0.00 k/uL Normal 0.0-0.2 [facility] Comment on above: Performed By: #### C DP, TROPI #### [facility] [address] [place] [address] Family Nurse Practitioner: Ronaldo Reed MD Abs.Neutrophil (Seg) 7.50 k/uL High 2.5-7.0 [facility] Comment on above: Performed By: #### C DP, TROPI #### [facility] [address] [phone] Family Nurse Practitioner: Ronaldo Reed MD Auto Diff Performed YES Normal [facility] Comment on above: Performed By: #### C DP, TROPI #### [facility] [address] [phone] Family Nurse Practitioner: Ronaldo Reed MD Basophils/100 WBC (Bld) 0 % Normal 0-2 [facility] Comment on above: Performed By: #### C DP, TROPI #### [facility] [address] [phone] Family Nurse Practitioner: Ronaldo Reed MD Eosinophils (Bld) [#/Vol] 0.30 10*3/uL Normal 0.0-0.4 [facility] Comment on above: Performed By: #### C DP, TROPI #### [facility] [address] [place] [address] Family Nurse Practitioner: Ronaldo Reed MD Eosinophils/100 WBC (Bld) 2 % Normal 0-5 [facility] Comment on above: Performed By: #### C DP, TROPI #### [facility] [address] [place] [address] Family Nurse Practitioner: Ronaldo Reed MD Erythrocyte distribution width (RBC) [Ratio] 14.1 % Normal 12.1-15.2 [facility] Comment on above: Performed By: #### C DP, TROPI #### [facility] [address] [place] [address] Family Nurse Practitioner: Ronaldo Reed MD Hematocrit (Bld) [Volume fraction] 34.5 % Low 36-46 [facility] Comment on above: Performed By: #### C DP, TROPI #### [facility] [address] [place] [address] Family Nurse Practitioner: Ronaldo Reed MD Hemoglobin (Bld) [Mass/Vol] 11.4 g/dL Low 12.0-16.0 [facility] Comment on above: Performed By: #### C DP, TROPI #### [facility] [address] [place] [address] Family Nurse Practitioner: Ronaldo Reed MD Lymphocytes (Bld) [#/Vol] 2.50 10*3/uL Normal 1.0-4.8 [facility] Comment on above: Performed By: #### C DP, TROPI #### [facility] [address] [place] [address] Family Nurse Practitioner: Ronaldo Reed MD Lymphocytes/100 WBC (Bld) 23 % Normal 15-40 [facility] Comment on above: Performed By: #### C DP, TROPI #### [facility] [address] [phone] Family Nurse Practitioner: Ronaldo Reed MD MCH (RBC) [Entitic mass] 31.5 pg Normal 26-34 [facility] Comment on above: Performed By: #### C DP, TROPI #### [facility] [address] [place] [address] Family Nurse Practitioner: Ronaldo Reed MD MCHC (RBC) [Mass/Vol] 33.0 g/dL Normal 31-37 [facility] Comment on above: Performed By: #### C DP, TROPI #### [facility] [address] [place] [address] Family Nurse Practitioner: Ronaldo Reed MD MCV (RBC) [Entitic vol] 95.2 fL Normal 80-100 [facility] Comment on above: Performed By: #### C DP, TROPI #### [facility] [address] [place] [address] Family Nurse Practitioner: Ronaldo Reed MD Monocytes (Bld) [#/Vol] 0.60 10*3/uL Normal 0.0-1.0 [facility] Comment on above: Performed By: #### C DP, TROPI #### [facility] [address] [place] [address] Family Nurse Practitioner: Ronaldo Reed MD Monocytes/100 WBC (Bld) 5 % Normal 4-8 [facility] Comment on above: Performed By: #### C DP, TROPI #### [facility] [address] [place] [address] Family Nurse Practitioner: Ronaldo Reed MD Neutrophil (Seg) 70 % Normal 47-75 [facility] Comment on above: Performed By: #### C DP, TROPI #### [facility] [address] [place] [address] Family Nurse Practitioner: Ronaldo Reed MD Platelets (Bld) [#/Vol] 428 10*3/uL Normal 140-450 [facility] Comment on above: Performed By: #### C DP, TROPI #### [facility] [address] [place], [place] [phone] Family Nurse Practitioner: Ronaldo Reed MD RBC (Bld) [#/Vol] 3.63 10*6/uL Low 4.0-5.2 [facility] Comment on above: Performed By: #### C DP, TROPI #### [facility] [address] [place], [place] [phone] Family Nurse Practitioner: Ronaldo Reed MD WBC (Bld) [#/Vol] 10.9 10*3/uL Normal 3.5-11.0 [facility] Comment on above: Performed By: #### C DP, TROPI #### [facility] [address] [place] [address] Family Nurse Practitioner: Ronaldo Reed MD EKG Rhythm Stripon 3 [facility] AM [facility] AM [facility] Troponinon 12-21-2022 Interpretation and review of laboratory results Abnormal [facility] Troponin, High Sensitivity 33 ng/L High 0 - 14 ng/L [facility] Comment on above: High Sensitivity Tro ponin values cannot be compared with other Troponin methodologies. [facility] Troponin, High Sens 34 ng/L High 0-14 [facility] Comment on above: Result Comment: High Sensitivity Troponin values cannot be compared with other Troponin methodologies. Performed By: #### C DP, TROPI #### [facility] [address] [place], [place] [phone] Family Nurse Practitioner: Ronaldo Reed MD Interpretation and review of laboratory results Abnormal [facility] Troponin, High Sensitivity 34 ng/L High 0 - 14 ng/L [facility] Comment on above: High Sensitivity Tro ponin values cannot be compared with other Troponin methodologies. [facility] Troponin, High Sens 48 ng/L High 0-14 [facility] Comment on above: Result Comment: High Sensitivity Troponin values cannot be compared with other Troponin methodologies. Performed By: #### U AX #### [facility] [address] [place] [address] Family Nurse Practitioner: Ronaldo Reed MD Interpretation and review of laboratory results Abnormal [facility] Troponin, High Sensitivity 48 ng/L High 0 - 14 ng/L [facility] Comment on above: High Sensitivity Tro ponin values cannot be compared with other Troponin methodologies. [facility] UA w/Reflex Cultureon 2022 Bilirubin, SemiQt,Ur Negative Normal NEG [facility] Comment on above: Performed By: #### U AX #### [facility] [address] [place], [place] [phone] Family Nurse Practitioner: Ronaldo Reed MD Blood, Urine Negative Normal NEG [facility] Comment on above: Performed By: #### U AX #### [facility] [address] [place], [place] [phone] Family Nurse Practitioner: Ronaldo Reed MD Clarity (U) Clear Normal CLEAR [facility] Comment on above: Performed By: #### U AX #### [facility] [address] [place], [place] [phone] Family Nurse Practitioner: Ronaldo Reed MD Color (U) Yellow Normal YEL [facility] Comment on above: Performed By: #### U AX #### [facility] [address] [place], [place] [phone] Family Nurse Practitioner: Ronaldo Reed MD Comment Normal [facility] Comment on above: Performed By: #### U AX #### [facility] [address] [place], [place] [phone] Family Nurse Practitioner: Ronaldo Reed MD Glucose Ql (U) Negative Normal NEG [facility] Comment on above: Performed By: #### U AX #### [facility] [address] [place] [address] Family Nurse Practitioner: Ronaldo Reed MD Ketones Ql (U) Negative Normal NEG [facility] Comment on above: Performed By: #### U AX #### [facility] [address] [place] [address] Family Nurse Practitioner: Ronaldo Reed MD Leukocyte esterase Test strip Ql (U) Negative Normal NEG [facility] Comment on above: Performed By: #### U AX #### [facility] [address] [place] [address] Family Nurse Practitioner: Ronaldo Reed MD Nitrite,Ur Negative Normal NEG [facility] Comment on above: Performed By: #### U AX #### [facility] [address] [place], [place] [phone] Family Nurse Practitioner: Ronaldo Reed MD PH,Ur 5.0 Normal 5.0-8.0 [facility] Comment on above: Performed By: #### U AX #### [facility] [address] [place] [address] Family Nurse Practitioner: Ronaldo Reed MD Protein Ql (U) TRACE Abnormal NEG [facility] Comment on above: Performed By: #### U AX #### [facility] [address] [place] [address] Family Nurse Practitioner: Ronaldo Reed MD Spec. [place],Ur 1.020 Normal 1.005-1.030 [facility] Comment on above: Performed By: #### U AX #### [facility] [address] [place] [address] Family Nurse Practitioner: Ronaldo Reed MD Urobilinogen,Ur Normal Normal NORM [facility] Comment on above: Performed By: #### U AX #### [facility] [address] [place], [place] [phone] Family Nurse Practitioner: Ronaldo Reed MD Urinalysis with Reflex to Cu ltureon 12-21-2022 Bilirubin Urine Negative NEGATIVE [facility] eXenSa Color, UA Yellow Yellow [facility] Glucose, Ur Negative NEGATIVE [facility] Interpretation and review of laboratory results Abnormal [facility] Ketones Ql (U) Negative NEGATIVE [facility] Leukocyte esterase Test strip Ql (U) Negative NEGATIVE [facility] Nitrite, Urine Negative NEGATIVE [facility] pH, UA 5.0 5.0 - 8.0 [facility] Protein, UA TRACE Abnormal NEGATIVE [facility] Specific [place], UA 1.020 1.005 - 1.030 [facility] Turbidity UA Clear Clear [facility] Urinalysis Comments [facility] Urine Hgb Negative NEGATIVE [facility] Urobilinogen, Urine Normal Normal [facility] Basic Metabolic Panelon 11-27 Anion gap [Moles/Vol] 10 mmol/L 9 - 17 mmol/L [facility] Calcium [Mass/Vol] 9.6 mg/dL 8.6 - 10. 4 mg/dL [facility] Chloride [Moles/Vol] 101 mmol/L 98 - 10 7 mmol/L [facility] CO2 [Moles/Vol] 29 mmol/L 20 - 31 mmol/L [facility] Creatinine [Mass/Vol] 0.89 mg/dL 0.50 - 0.90 mg/dL [facility] GFR/1.73 sq M.predicted MDRD (S/P/Bld) [Vol rate/Area] - PINF [facility] Comment on above: Effective Aug 28, 2022 [...] 116 mg/dL High 70 - 99 mg/dL [facility] Interpretation and review of laboratory results Abnormal [facility] Potassium [Moles/Vol] 4.2 mmol/L 3.7 - 5.3 mmol/L [facility] Sodium [Moles/Vol] 140 mmol/L 135 - 144 mmol/L [facility] Urea nitrogen (BldV) [Mass/Vol] 34 mg/dL High 8 - 23 mg/dL [facility] Urea nitrogen/Creatinine (Bld) [Mass ratio] 38 High 9 - 20 [facility] Basic Metabolic Profon 12-17 Anion gap [Moles/Vol] 10 mmol/L Normal 9-17 [facility] Comment on above: Performed By: #### U AX #### [facility] [address] [place] [address] Family Nurse Practitioner: Ronaldo Reed MD BUN/CRE Ratio 38 High 9-20 [facility] Comment on above: Performed By: #### U AX #### [facility] [address] [place], [place] [phone] Family Nurse Practitioner: Ronaldo Reed MD Calcium [Mass/Vol] 9.6 mg/dL Normal 8.6-10.4 [facility] Comment on above: Performed By: #### U AX #### [facility] [address] [place] [address] Family Nurse Practitioner: Ronaldo Reed MD Chloride [Moles/Vol] 101 mmol/L Normal 98-107 [facility] Comment on above: Performed By: #### U AX #### [facility] [address] [place] [address] Family Nurse Practitioner: Ronaldo Reed MD CO2 [Moles/Vol] 29 mmol/L Normal 20-31 [facility] Comment on above: Performed By: #### U AX #### [facility] [address] [place] [address] Family Nurse Practitioner: Ronaldo Reed MD Creatinine [Mass/Vol] 0.89 mg/dL Normal 0.50-0.90 [facility] Comment on above: Performed By: #### U AX #### [facility] [address] [place], [place] [phone] Family Nurse Practitioner: Ronaldo Reed MD GFR/1.73 sq M.predicted among non-blacks MDRD (S/P/Bld) [Vol rate/Area] mL/min/{1.73_m2} Normal >60 [facility] Comment on above: Result Comment: Effective [...] secretion. Performed By: #### U AX #### [facility] [address] [place] [address] Family Nurse Practitioner: Ronaldo Reed MD Glucose [Mass/Vol] 116 mg/dL High 70-99 [facility] Comment on above: Performed By: #### U AX #### [facility] [address] [place] [address] Family Nurse Practitioner: Ronaldo Reed MD Potassium [Moles/Vol] 4.2 mmol/L Normal 3.7-5.3 [facility] Comment on above: Performed By: #### U AX #### [facility] [address] [place] [address] Family Nurse Practitioner: Ronaldo Reed MD Sodium [Moles/Vol] 140 mmol/L Normal 135-144 [facility] Comment on above: Performed By: #### U AX #### [facility] [address] [place] [address] Family Nurse Practitioner: Ronaldo Reed MD Urea nitrogen [Mass/Vol] 34 mg/dL High 8-23 [facility] Comment on above: Performed By: #### U AX #### [facility] [address] [place] [address] Family Nurse Practitioner: Ronaldo Reed MD CBC with Auto Differentialon 12-17-2022 Absolute Eos # 0.60 High [facility] Absolute Lymph # 3.20 [facility] Absolute [place] # 0.80 [facility] Basophils (Bld) [#/Vol] 0.00 10*3/uL [facility] Basophils/100 WBC (Bld) 0 % 0 - 2 % [facility] Differential Type YES [facility] Eosinophils/100 WBC (Bld) 6 % High 0 - 5 % [facility] Hematocrit (Bld) [Volume fraction] 36.6 % 36 - 46 % [facility] Hemoglobin (Bld) [Mass/Vol] 12.1 g/dL 12.0 - 16.0 g/dL [facility] Interpretation and review of laboratory results Abnormal [facility] Lymphocytes/100 WBC (Bld) 30 % 15 - 40 % [facility] MCH (RBC) [Entitic mass] 31.4 pg 26 - 34 pg [facility] MCHC (RBC) [Mass/Vol] 33.0 g/dL 31 - 37 g/dL [facility] MCV (RBC) [Entitic vol] 95.1 fL 80 - 100 fL [facility] Monocytes/100 WBC (Bld) 8 % 4 - 8 % [facility] Platelet distribution width (Bld) [Ratio] 13.9 % 12.1 - 15.2 % [facility] Platelets (Bld) [#/Vol] 390 10*3/uL [facility] RBC (Bld) [#/Vol] 3.85 10*6/uL Low 4.0 - 5.2 m/uL [facility] Segmented neutrophils/100 WBC (Bld) 56 % 47 - 75 % [facility] Segs Absolute 6.00 [facility] WBC (Bld) [#/Vol] 10.6 10*3/uL [facility] CBC with Diffon 12-17-2022 Abs. Basophil 0.00 k/uL Normal 0.0-0.2 [facility] Comment on above: Performed By: #### U AX #### [facility] [address] [place] [address] Family Nurse Practitioner: Ronaldo Reed MD Abs.Neutrophil (Seg) 6.00 k/uL Normal 2.5-7.0 [facility] Comment on above: Performed By: #### U AX #### [facility] [address] [place] [address] Family Nurse Practitioner: Ronaldo Reed MD Auto Diff Performed YES Normal [facility] Comment on above: Performed By: #### U AX #### [facility] [address] [phone] Family Nurse Practitioner: Ronaldo Reed MD Basophils/100 WBC (Bld) 0 % Normal 0-2 [facility] Comment on above: Performed By: #### U AX #### [facility] [address] [place] [address] Family Nurse Practitioner: Ronaldo Reed MD Eosinophils (Bld) [#/Vol] 0.60 10*3/uL High 0.0-0.4 [facility] Comment on above: Performed By: #### U AX #### [facility] [address] [phone] Family Nurse Practitioner: Ronaldo Reed MD Eosinophils/100 WBC (Bld) 6 % High 0-5 [facility] Comment on above: Performed By: #### U AX #### [facility] [address] [place] [address] Family Nurse Practitioner: Ronaldo Reed MD Erythrocyte distribution width (RBC) [Ratio] 13.9 % Normal 12.1-15.2 [facility] Comment on above: Performed By: #### U AX #### [facility] [address] [place] [address] Family Nurse Practitioner: Ronaldo Reed MD Hematocrit (Bld) [Volume fraction] 36.6 % Normal 36-46 [facility] Comment on above: Performed By: #### U AX #### [facility] [address] [place] [address] Family Nurse Practitioner: Ronaldo Reed MD Hemoglobin (Bld) [Mass/Vol] 12.1 g/dL Normal 12.0-16.0 [facility] Comment on above: Performed By: #### U AX #### [facility] [address] [place] [address] Family Nurse Practitioner: Ronaldo Reed MD Lymphocytes (Bld) [#/Vol] 3.20 10*3/uL Normal 1.0-4.8 [facility] Comment on above: Performed By: #### U AX #### [facility] [address] [place] [address] Family Nurse Practitioner: Ronaldo Reed MD Lymphocytes/100 WBC (Bld) 30 % Normal 15-40 [facility] Comment on above: Performed By: #### U AX #### [facility] [address] [place] [address] Family Nurse Practitioner: Ronaldo Reed MD MCH (RBC) [Entitic mass] 31.4 pg Normal 26-34 [facility] Comment on above: Performed By: #### U AX #### [facility] [address] [place] [address] Family Nurse Practitioner: Ronaldo Reed MD MCHC (RBC) [Mass/Vol] 33.0 g/dL Normal 31-37 [facility] Comment on above: Performed By: #### U AX #### [facility] [address] [place] [address] Family Nurse Practitioner: Ronaldo Reed MD MCV (RBC) [Entitic vol] 95.1 fL Normal 80-100 [facility] Comment on above: Performed By: #### U AX #### [facility] [address] [place] [address] Family Nurse Practitioner: Ronaldo Reed MD Monocytes (Bld) [#/Vol] 0.80 10*3/uL Normal 0.0-1.0 [facility] Comment on above: Performed By: #### U AX #### [facility] [address] [place] [address] Family Nurse Practitioner: Ronaldo Reed MD Monocytes/100 WBC (Bld) 8 % Normal 4-8 [facility] Comment on above: Performed By: #### U AX #### [facility] [address] [place] [address] Family Nurse Practitioner: Ronaldo Reed MD Neutrophil (Seg) 56 % Normal 47-75 [facility] Comment on above: Performed By: #### U AX #### [facility] [address] [place] [address] Family Nurse Practitioner: Ronaldo Reed MD Platelets (Bld) [#/Vol] 390 10*3/uL Normal 140-450 [facility] Comment on above: Performed By: #### U AX #### [facility] [address] [place] [address] Family Nurse Practitioner: Ronaldo Reed MD RBC (Bld) [#/Vol] 3.85 10*6/uL Low 4.0-5.2 [facility] Comment on above: Performed By: #### U AX #### [facility] [address] [place] [address] Family Nurse Practitioner: Ronaldo Reed MD WBC (Bld) [#/Vol] 10.6 10*3/uL Normal 3.5-11.0 [facility] Comment on above: Performed By: #### U AX #### [facility] [address] [place] [address] Family Nurse Practitioner: Ronaldo Reed MD CHEMISTRYOrdered By: Lab ROP User on 12-15-2022 Glucose [Mass/Vol] 130 mg/dL High 55 - 99 mg/dL [facility] Subsection Comment on above: Result Comment: Blanca allen RN/ POC Device SN [id number] Invalid Interpretation Code [facility] POC Subsection POC User ID [id number] Invalid Interpretation Code [facility] POC Subsection POC Username EDWAR SHUKLAY Invalid Interpretation Code [facility] POC Subsection Glucose [Mass/Vol] 132 mg/dL High 55 - 99 mg/dL [facility] POC Subsection Comment on above: Result Comment: Blanca allen RN/ POC Device SN [id number] Invalid Interpretation Code [facility] POC Subsection POC User ID [id number] Invalid Interpretation Code [facility] POC Subsection POC Username CONSTANCE SHUKLA Invalid Interpretation Code [facility] POC Subsection Glucose [Mass/Vol] 122 mg/dL High 55 - 99 mg/dL [facility] POC Subsection Comment on above: Result Comment: Danitza lizzie Meter POC Device SN [id number] Invalid Interpretation Code [facility] POC Subsection POC User ID [id number] Invalid Interpretation Code [facility] POC Subsection POC [...] E9/L [facility] HemeAutoSS MICRO OTHER TESTSOrdered By: Mona Raymundo on [...] PM) Normal Negative [facility] UA Auto SS [place].plasma/[place] .RBC (Bld) [Mass ratio] 0-3 /HPF Normal 0-3/HPF [facility] UA Auto SS Nitrite Ql (U) Negative (12/12/22 8:38 PM) Normal Negative [facility] UA Auto SS pH (U) 5.0 *NA* (12/12/22 8:38 PM) Invalid Interpretation Code 5.0 - 9.0 [facility] UA Auto SS Protein (U) [Mass/Vol] Negative (12/12/22 8:38 PM) Normal Negative [facility] UA Auto SS Specific gravity (U) [Rel density] 1.020 *NA* (12/12/22 8:38 PM) Invalid Interpretation Code 1.005 - 1.030 [facility] Auto SS UA Spec Desc Clean Catch (12/12/22 8:38 PM) Normal [facility] UA Auto SS Urobilinogen Qn (U) 0.6700005 {Pollo'U}/dL Normal 0.0 - 1.0 EU/dL FT [...] Karly Arzate MD 12/07/22 Final result Normal [facility] Acute distal fibular fracture. [facility] RIS CONSOLIDATED EXAM: XR ANKLE RIGHT (MIN 3 VIEWS) HISTORY: Reason for exam:->injury COMPARISON: None. TECHNIQUE: 3 views of the right ankle FINDINGS: Acute nondisplaced oblique fracture of the distal fibula is seen. Joint alignment is normal. Joint spaces are preserved. Soft tissue swelling seen about the lateral ankle. Plantar and posterior calcaneal spur is seen. [facility] Karly Arzate MD - [...] is seen. IMPRESSION: Acute distal fibular fracture. [facility] [employer] Phone: Radiology Study observation (narrative) [facility] [employer] Phone: XR ANKLE RIGHT (MIN 3 VIEWS) Ordered By: Karly Arzate on 12-07-2022 [facility] [employer] Phone: CHEMISTRYOrdered By: SYSTEM SYSTEM on 09-28-2022 [...] Differentialon 07-27 Absolute Eos # 0.50 High [facility] [facility] Absolute Lymph # 2.40 [facility] Absolute [place] # 0.60 [facility] RS [facility] Basophils (Bld) [#/Vol] 0.00 10*3/uL [facility] Basophils/100 WBC (Bld) 0 % 0 - 2 % [facility] Differential Type YES [facility] Eosinophils/100 WBC (Bld) 5 % 0 - 5 % [facility] Hematocrit (Bld) [Volume fraction] 37.0 % 36 - 46 % [facility] Hemoglobin (Bld) [Mass/Vol] 12.5 g/dL 12 - 16 g/dL [facility] Interpretation and review of laboratory results Abnormal [facility] Lymphocytes/100 WBC (Bld) 25 % 15 - 40 % [facility] MCH (RBC) [Entitic mass] 31.6 pg 26 - 34 pg [facility] MCHC (RBC) [Mass/Vol] 33.8 g/dL 31 - 37 g/dL B ON [facility] MCV (RBC) [Entitic vol] 93.5 fL 80 - 100 fL [facility] Monocytes/100 WBC (Bld) 6 % 4 - 8 % [facility] Platelet distribution width (Bld) [Ratio] 13.2 % 12.1 - 15.2 % [facility] Platelets (Bld) [#/Vol] 320 10*3/uL [facility] RBC (Bld) [#/Vol] 3.95 10*6/uL Low 4 - 5.2 m/uL [facility] Segmented neutrophils/100 WBC (Bld) 64 % 47 - 75 % [facility] Segs Absolute 5.90 [facility] WBC (Bld) [#/Vol] 9.3 10*3/uL [facility] Comprehensive Metabolic Pane salima 08-08-2022 Albumin [Mass/Vol] 3.6 g/dL 3.5 - 5.2 g/dL [facility] ALP (Bld) [Catalytic activity/Vol] 111 U/L High 35 - 104 U/L [facility] ALT [Catalytic activity/Vol] 20 U/L 5 - 33 U/L [facility] Anion gap [Moles/Vol] 10 mmol/L 9 - 17 mmol/L [facility] AST [Catalytic activity/Vol] 20 U/L NINF - 32 U/L [facility] Bilirubin [Mass/Vol] 0.5 mg/dL 0.3 - 1 .2 mg/dL [facility] Calcium [Mass/Vol] 9.7 mg/dL 8.6 - 10. 4 mg/dL [facility] Chloride [Moles/Vol] 102 mmol/L 98 - 10 7 mmol/L [facility] CO2 [Moles/Vol] 28 mmol/L 20 - 31 mmol/L [facility] Creatinine [Mass/Vol] 0.77 mg/dL 0.5 - 0.9 mg/dL [facility] Free PSA/Total PSA [Mass fraction] 6.7 g/dL 6.4 - 8.3 g/dL [facility] GFR >60 60 - PI NF mL/min [facility] GFR Non- >60 60 - PINF mL/min [facility] GFR/1.73 sq M.predicted MDRD (S/P/Bld) [Vol rate/Area] [facility] Comment on above: Average GFR for 70 o r more years old: 75 mL/min/1.73sq m Chronic Kidney Disease: <60 mL/min/1.73sq m Kidney failure: <15 mL/min/1.73sq m eGFR calculated using average adult body mass. Additional eGFR calculator available at: http://www.BookBub/multiple_crcl_2012.htm Glucose [Mass/Vol] 126 mg/dL High 70 - 99 mg/dL [facility] Interpretation and review of laboratory results Abnormal [facility] Potassium [Moles/Vol] 4.8 mmol/L 3.7 - 5.3 mmol/L [facility] Sodium [Moles/Vol] 140 mmol/L 135 - 144 mmol/L [facility] Urea nitrogen (BldV) [Mass/Vol] 22 mg/dL 8 - 23 mg/dL [facility] Urea nitrogen/Creatinine (Bld) [Mass ratio] 29 High 9 - 20 [facility] Lipid Panelon 08-08-2022 Cholesterol [Mass/Vol] 138 mg/dL NINF - 200 mg/dL [facility] Comment on above: Cholesterol Guidelines: <200 Desirable 200-240 Borderline >240 Undesirable Cholesterol in HDL [Mass/Vol] 42 mg/dL 40 - PINF mg/dL [facility] Comment on above: HDL Guidelines: <40 Undesirable 40-59 Borderline >59 Desirable Cholesterol in LDL [Mass/Vol] 72 mg/dL 0 - 130 mg/dL [facility] Comment on above: LDL Guidelines: <100 Desirable 100-129 Near to/above Desirable 130-159 Borderline >159 Undesirable Direct (measured) LDL and calculated LDL are not interchangeable tests. Cholesterol.total/Chol esterol in HDL [Mass ratio] 3.3 {ratio} NINF - 5 [facility] Triglyceride [Mass/Vol] 122 mg/dL NINF - 150 mg/dL [facility] Comment on above: Triglyceride Guidelines: <150 Desirable 150-199 Borderline 200-499 High >499 Very high Based on AHA Guidelines for fasting triglyceride, August 2012. [facility] [employer] Magnesiumon 08-08-2022 Magnesium [Mass/Vol] 1.7 mg/dL 1.6 - 2 .6 mg/dL [facility] No Panel Informationon 08-08 [facility] Patient Fasting?on 2 Patient Fasting? yes [facility] TSH with Reflexon 08-08-2022 TSH Qn 2.08 m[IU]/L [facility] Vitamin D 25 Hydroxyon 08-08 Vit D, 25-Hydroxy 40.6 ng/mL 29.9 - PIN F ng/mL [facility] [employer] Comment on above: Reference Range: Vitamin D status Range Deficiency <20 ng/mL Mild Deficiency 20-30 ng/mL Sufficiency 30-100 ng/mL Toxicity >100 ng/mL [facility] [employer] XR CHEST (2 VW)on 08-08-2022 Chronic changes and emphysema, similar. [facility] RIS CONSOLIDATED EXAM: XR CHEST (2 VW) HISTORY: Reason for exam:->a fib, 86-year-old female COMPARISON: Chest 09/12/2021 TECHNIQUE: 2 views chest FINDINGS: Chronic interstitial stranding at the lung bases, stable. Prior sternotomy. Heart size upper normal. Degenerative changes spine. Likely emphysematous overinflation. [facility] aBng Godoy Jr., MD - 08/08/2022 EXAM: XR CHEST (2 VW) HISTORY: Reason for exam:->a fib, 86-year-old female COMPARISON: Chest 09/12/2021 TECHNIQUE: 2 views chest FINDINGS: Chronic interstitial stranding at the lung bases, stable. Prior sternotomy. Heart size upper normal. Degenerative changes spine. Likely emphysematous overinflation. IMPRESSION: Chronic changes and emphysema, similar. [facility] Work Phone: Radiology Study observation (narrative) [facility] Work Phone: XR CHEST (2 VW)Ordered By: Lyudmila Godoy on 08-08-2022 [facility] Work Phone: URINALYSISOrdered By: Pola Castaneda on [...] Interpretation Code Negative [facility] UA Auto SS [place].plasma/[place] .RBC (Bld) [Mass ratio] 0-3 /HPF Normal [...] [facility] UA Auto SS Urobilinogen Qn (U) [id number] {Pollo'U}/dL Normal 0.0 - 1.0 EU/dL [facility] [...] rate/Area] mL/min/1.73 m2 Normal >=59mL/min/1 .73 m2 [facility] Chem S GFR/1.73 sq M.predicted among non-blacks MDRD (S/P/Bld) [Vol rate/Area] mL/min/1.73 m2 Normal >=59mL/min/1 .73 m2 [facility] Chem S Globulin (S) [Mass/Vol] 3.3 g/dL [...] 27 mg/dL High 5 - 21 mg/dL [facility] Remisol Urea nitrogen/Creatinine [Mass ratio] 34 mg/mg High 10 - 20 [facility] Remisol CHEMISTRYOrdered By: Josseline Stanley on 06-19-2022 HbA1c (Bld) [Mass fraction] 6.4 % High <=5.9% [facility] ChemAutoSS HEMATOLOGYOrdered By: SYSTEM SYSTEM on 06-19-2022 [...] rate/Area] mL/min/1.73 m2 Normal >=59mL/min/1 .73 m2 [facility] Chem S GFR/1.73 sq M.predicted among non-blacks MDRD (S/P/Bld) [Vol rate/Area] mL/min/1.73 m2 Normal >=59mL/min/1 .73 m2 [facility] Chem S Globulin (S) [Mass/Vol] 3.6 g/dL [...] Panel Informationon 05-03 Chondrocalcinosis and degenerative changes. [facility] EXAM: XR WRIST RIGHT [...] Mild radiocarpal joint space narrowing. No fracture. [facility] Bang Godoy Jr., MD [...] No fracture. IMPRESSION: Chondrocalcinosis and degenerative changes. [employer] Phone: No Panel InformationOrdered By: Bang Godoy on 05-03-2022 [employer] Phone: XR WRIST LEFT (MIN 3 VIEWS)o n 05-03-2022 Radiology Study observation (narrative) [employer] Phone: XR WRIST RIGHT (MIN 3 VIEWS) on 05-03-2022 Radiology Study observation (narrative) [employer] Phone: CHEMISTRYOrdered By: SYSTEM SYSTEM on 02-14-2022 [...] rate/Area] mL/min/1.73 m2 Normal >=59mL/min/1 .73 m2 [facility] Chem S Globulin (S) [Mass/Vol] 3.1 g/dL [...] rate/Area] mL/min/1.73 m2 Normal >=59mL/min/1 .73 m2 [facility] Chem S GFR/1.73 sq M.predicted among non-blacks MDRD (S/P/Bld) [Vol rate/Area] 60 mL/min/1.73 m2 Normal >=59mL/min/1 .73 m2 [facility] Chem S Globulin (S) [Mass/Vol] 3.2 g/dL [...] 7.7 fL Normal 6.4 - 10.8 fL [facility] HemeAutoSS Platelets (Bld) [#/Vol] 295.0 E9/L Normal 150.0 - 500.0 E9/L [facility] HemeAutoSS RBC (Bld) [#/Vol] 4.2 E12/L Low 4.3 - 5.9 E12/L [facility] HemeAutoSS WBC corrected for nucl RBC Auto (Bld) [#/Vol] 7.5 E9/L Normal 4.0 - 11.0 E9/L [facility] HemeAutoSS HEMATOLOGYOrdered By: Daisy Diego on 12-14-2021 Sed Rate Automated 13 mm/h Normal 0 - 34 mm/hr [facility] HemeAutoSS XR LUMBAR SPINE (MIN 4 VIEWS )on 10-02-2021 No acute lumbar spine findings. Chronic changes are described above. If the patient has focal tenderness, further evaluation with MRI is recommended. [facility] EXAM: XR LUMBAR SPINE [...] There are dense aortic calcifications without aneurysm. [facility] Armand Chen MD - [...] tenderness, further evaluation with MRI is recommended. [employer] Phone: [employer] Phone: Radiology Study observation (narrative) [employer] Phone: XR THORACIC SPINE (3 VIEWS)o n [...] is seen in the lower cervical spine. [facility] Armand Myrick MD - 10/02/2021 EXAM: XR [...] CT scan or MRI could be considered. [employer] Phone: Radiology Study observation (narrative) [employer] Phone: XR THORACIC SPINE (3 VIEWS)O rdered By: Armand Chen on 10-02-2021 [employer] Phone: CBC Auto DifferentialOrdered By: Emiliano Deng on 09-12-2021 Absolute Eos # 0.20 [employer] Phone: Absolute Immature Granulocyte NOT REPORTED [employer] Phone: Absolute Lymph # 1.70 [employer] [facility] Work Phone: Absolute [place] # 0.40 [employer] [facility] Work Phone: Basophils (Bld) [#/Vol] 0.00 10*3/uL [email or web address] Work Phone: Basophils/100 WBC (Bld) 0 % 0 - 2 % [email or web address] Work Phone: Differential Type YES [employer] Work Phone: Eosinophils/100 WBC (Bld) 3 % 0 - 5 % [employer] Phone: Hematocrit (Bld) [Volume fraction] 37.3 % 36 - 46 % [email or web address] Work Phone: Hemoglobin.gastrointes tinal spec 1 Ql (Stl) 12.5 g/dL 12.0 - 16.0 g/dL [email or web address] Work Phone: Immature Granulocytes NOT REPORTED 0 % M [employer] Work Phone: Interpretation and review of laboratory results Abnormal [employer] Phone: Lymphocytes/100 WBC (Bld) 27 % 15 - 40 % [employer] Phone: MCH (RBC) [Entitic mass] 31.7 pg 26 - 34 pg [email or web address] Work Phone: MCHC (RBC) [Mass/Vol] 33.4 g/dL 31 - 37 g/dL [employer] Phone: MCV (RBC) [Entitic vol] 94.9 fL 80 - 100 fL [email or web address] Work Phone: Monocytes/100 WBC (Bld) 6 % 4 - 8 % [employer] Phone: NRBC Automated NOT REPORTED per 100 WBC [facility] Work Phone: Platelet distribution width (Bld) [Ratio] 14.1 % 12.1 - 15.2 % [employer] Phone: Platelet Estimate NOT REPORTED [employer] Phone: Platelet mean volume (Bld) [Entitic vol] NOT REPORTED 6.0 - 12.0 fL [email or web address] Work Phone: Platelets (Bld) [#/Vol] 311 10*3/uL [email or web address] Work Phone: RBC (Bld) [#/Vol] 3.93 10*6/uL Low 4.0 - 5.2 m/uL [employer] Phone: RBC (Bld) [#/Vol] NOT REPORTED [employer] Phone: Segmented neutrophils/100 WBC (Bld) 64 % 47 - 75 % [email or web address] Work Phone: Segs Absolute 4.20 [employer] Work Phone: WBC (Bld) [#/Vol] 6.6 10*3/uL [email or web address] Work Phone: WBC (Bld) [#/Vol] NOT REPORTED [employer] Phone: [employer] Phone: Comprehensive Metabolic Pane lOrdered By: Emiliano Deng on 09-12-2021 Albumin [Mass/Vol] 3.7 g/dL 3.5 - 5.2 g/dL [employer] Phone: Albumin/Globulin Ratio NOT REPORTED [employer] Phone: ALP (Bld) [Catalytic activity/Vol] 95 U/L 35 - 104 U/L [email or web address] Work Phone: ALT [Catalytic activity/Vol] 17 U/L 5 - 33 U/L [email or web address] Work Phone: Anion gap [Moles/Vol] 9 mmol/L 9 - 17 mmol/L [employer] Phone: AST [Catalytic activity/Vol] 16 U/L <32 [employer] Phone: Bilirubin [Mass/Vol] 0.48 mg/dL 0.30 - 1.20 mg/dL [employer] Phone: Calcium [Mass/Vol] 9.1 mg/dL 8.6 - 10. 4 mg/dL [employer] Phone: Chloride [Moles/Vol] 105 mmol/L 98 - 10 7 mmol/L [employer] Phone: CO2 [Moles/Vol] 26 mmol/L 20 - 31 mmol/L [employer] Phone: Creatinine [Mass/Vol] 0.64 mg/dL 0.50 - 0.90 mg/dL [employer] Phone: Free PSA/Total PSA [Mass fraction] 6.7 g/dL 6.4 - 8.3 g/dL [employer] Phone: GFR >60 >60 mL/min [employer] Phone: GFR Non- >60 >60 mL/min [employer] Phone: GFR/1.73 sq M.predicted MDRD (S/P/Bld) [Vol rate/Area] [employer] Phone: Comment on above: Average GFR for 70 o r more years old: 75 mL/min/1.73sq m Chronic Kidney Disease: <60 mL/min/1.73sq m Kidney failure: <15 mL/min/1.73sq m eGFR calculated using average adult body mass. Additional eGFR calculator available at: http://www.BountyHunter.BrightTALK/multiple_crcl_2012.htm GFR/1.73 sq M.predicted MDRD (S/P/Bld) [Vol rate/Area] NOT REPORTED [employer] Phone: Glucose [Mass/Vol] 128 mg/dL High 70 - 99 mg/dL [employer] Phone: Interpretation and review of laboratory results Abnormal [employer] Phone: Potassium [Moles/Vol] 3.6 mmol/L Low 3.7 - 5.3 mmol/L [employer] Phone: Sodium [Moles/Vol] 140 mmol/L 135 - 144 mmol/L [employer] Phone: Urea nitrogen (BldV) [Mass/Vol] 14 mg/dL 8 - 23 mg/dL [employer] Phone: Urea nitrogen/Creatinine (Bld) [Mass ratio] 22 High [employer] Phone: Lipid PanelOrdered By: Emiliano Deng on 09-12-2021 Cholesterol [Mass/Vol] 138 mg/dL <200 [employer] Phone: Comment on above: Cholesterol Guidelines: <200 Desirable 200-240 Borderline >240 Undesirable Cholesterol in HDL [Mass/Vol] 55 mg/dL >40 [employer] Phone: Comment on above: HDL Guidelines: <40 Undesirable 40-59 Borderline >59 Desirable Cholesterol in LDL [Mass/Vol] 63 mg/dL 0 - 130 mg/dL [employer] Phone: Comment on above: LDL Guidelines: <100 Desirable 100-129 Near to/above Desirable 130-159 Borderline >159 Undesirable Direct (measured) LDL and calculated LDL are not interchangeable tests. Cholesterol in VLDL [Mass/Vol] NOT REPORTED 1 - 30 mg/dL [employer] Phone: Cholesterol.total/Chol esterol in HDL [Mass ratio] 2.5 {ratio} <5 [employer] Phone: Triglyceride [Mass/Vol] 101 mg/dL <150 [employer] Phone: Comment on above: Triglyceride Guidelines: <150 Desirable 150-199 Borderline 200-499 High >499 Very high Based on AHA Guidelines for fasting triglyceride, August 2012. [employer] Phone: MagnesiumOrdered By: Emiliano nam on 09-12-2021 Magnesium [Mass/Vol] 1.7 mg/dL 1.6 - 2 .6 mg/dL [employer] Phone: No Panel InformationOrdered By: Emiliano Deng on 09-12-2021 [employer] Phone: Patient Fasting?Ordered By: Emiliano Deng on 09-12-2021 Patient Fasting? yes [employer] Work Phone: [employer] Phone: TSH with ReflexOrdered By: Lloyd Deng on 09-12-2021 TSH Qn 1.77 m[IU]/L [employer] Phone: Vitamin D 25 HydroxyOrdered By: Emiliano Deng on 09-12-2021 Vit D, 25-Hydroxy 35.6 ng/mL 30.0 - 100 .0 ng/mL [employer] Phone: Comment on above: Reference Range: Vitamin D status Range Deficiency <20 ng/mL Mild Deficiency 20-30 ng/mL Sufficiency 30-100 ng/mL Toxicity >100 ng/mL [employer] Phone: XR CHEST (2 VW)Ordered By: Lloyd Deng on 09-12-2021 COPD with mild nonspecific reticular opacities at the lung bases favoring atelectasis and/or fibrotic scarring. The lungs appear otherwise clear. [employer] Phone: EXAM: XR CHEST (2 VW) HISTORY: [...] hardware near the cervicothoracic junction appears unchanged. [employer] Phone: Anupam, Mhpn Incoming Radiant Results From [employer] - 09/12/2021 12:29 PM EDT EXAM: XR [...] fibrotic scarring. The lungs appear otherwise clear. [employer] Phone: [employer] Phone: CHEMISTRYOrdered By: SYSTEM SYSTEM on 08-24-2021 [...] rate/Area] mL/min/1.73 m2 Normal >=59mL/min/1 .73 m2 [facility] Chem S Globulin (S) [Mass/Vol] 3.0 g/dL [...] LEFTOrdered By: Xena Andrews on 06-13-2021 Anupam, [facility] Incoming Cardio Results From [facility] - 06/14/2021 8:21 AM EDT [facility] Vascular Lower Extremities DVT Study Procedure Patient Name BRIDGET Date of Study 06/13/2021 ALEENA Dixon Date of 1935 Gender Female Age 85 year(s) Race Room Number Corporate ID # [id number] Patient MR # [id number] Glass Frame Fitter Kiya Forte, RT Interpreting Physician Heri Godoy [...] v. Signature ---- Electronically signed by RT Veronica(Hoang)(M)(CT)([facility])(S onographer) on 06/13/2021 01:40 PM ---- ---- [...] !None ! + +-- --------+ ----+ + [employer] Phone: [employer] Phone: XR HIP 2-3 VW W PELVIS LEFTO rdered By: Xena Andrews on 06-11-2021 1. Mild to moderate degenerative changes are noted in both hips. 2. No fracture or dislocation is identified. 3. Atherosclerosis. [employer] Phone: PELVIS AND LEFT HIP RADIOGRAPH 06/11/2021 [...] lumbar spine. Extensive atherosclerotic changes are noted. [employer] Phone: Anupam, pn Incoming Radiant Results From [employer] - 06/11/2021 9:34 AM EDT PELVIS AND [...] fracture or dislocation is identified. 3. Atherosclerosis. [employer] Phone: [employer] Phone: XR CERVICAL SPINE (4-5 VIEWS )Ordered By: Merissa Donald on 06-09-2021 Degenerative changes with intact fusion lower cervical spine. [employer] Phone: EXAM: XR CERVICAL SPINE (4-5 VIEWS) [...] for age. Lung apices clear. Odontoid normal. [employer] Phone: Anupam, pn Incoming Radiant Results From [employer] - 06/09/2021 11:40 AM EDT EXAM: XR [...] changes with intact fusion lower cervical spine. [employer] Phone: [employer] Phone: CT HEAD WO CONTRASTon 2020 Right supraorbital scalp hematoma. No skull fracture or intracranial hemorrhage. [employer] Phone: EXAMINATION: CT HEAD WO CONTRAST HISTORY: [...] show no fracture. Multiplanar reconstructions otherwise negative. [employer] Phone: Anupam, [facility] Incoming Radiant Results From [employer] - 03/08/2021 12:50 PM EDT EXAMINATION: CT [...] hematoma. No skull fracture or intracranial hemorrhage. [employer] Phone: MRI lumbar spine without con traston 02-03-2021 Significant severe spinal canal stenosis at L3-L4, L4-L5 and L5-S1 caused by discogenic disease and facet arthropathy as detailed above. [employer] Phone: LUMBAR MRI HISTORY: Low back pain [...] deformity at L1. Distal cord appears unremarkable. [employer] Phone: Anupam, Mhpn Incoming Radiant Results From [employer] - 02/03/2021 1:21 PM EST LUMBAR MRI [...] disease and facet arthropathy as detailed above. [email or web address] Work Phone: XR KNEE RIGHT (MIN 4 VIEWS)o n 10-06-2020 Severe osteoarthritic changes right knee. Moderate degenerative change left knee. [place] EXAM: XR KNEE RIGHT (MIN 4 [...] not as severe as on the right. [place] Anupam, M[facility] Incoming Radiant Results From [employer] - 10/06/2020 6:40 PM EST EXAM: XR [...] right knee. Moderate degenerative change left knee. [place], [place] CBC Auto Differentialon 08-26 Basophils (Bld) [#/Vol] 0.00 10*3/uL [place] Basophils/100 WBC (Bld) 0 % 0 - 2 % [place] Differential Type YES [place], [place] Eosinophils (Bld) [#/Vol] 0.30 10*3/uL [place] Eosinophils/100 WBC (Bld) 3 % 0 - 5 % [place] Erythrocyte distribution width (RBC) [Ratio] 13.9 % 12.1 - 15.2 % [place] Hematocrit (Bld) [Volume fraction] 40.0 % 36 - 46 % [place] Hemoglobin (Bld) [Mass/Vol] 13.5 g/dL 12 - 16 g/dL [place] Lymphocytes (Bld) [#/Vol] 2.60 10*3/uL [place] Lymphocytes/100 WBC (Bld) 32 % 15 - 40 % [place] MCH (RBC) [Entitic mass] 31.4 pg 26 - 34 pg [place] MCHC (RBC) [Mass/Vol] 33.7 g/dL 31 - 37 g/dL M [place] MCV (RBC) [Entitic vol] 93.1 fL 80 - 100 fL [place] Monocytes (Bld) [#/Vol] 0.50 10*3/uL [place] Monocytes/100 WBC (Bld) 7 % 4 - 8 % [place] Platelet mean volume (Bld) [Entitic vol] NOT REPORTED 6 - 12 fL [place] Platelets (Bld) [#/Vol] 266 10*3/uL [place] Platelets (Bld) [#/Vol] NOT REPORTED [place] RBC (Bld) [#/Vol] 4.29 10*6/uL 4 - 5.2 m/uL [place], [place] RBC morphology finding Nom (Bld) NOT REPORTED [place] Segmented neutrophils/100 WBC (Bld) 58 % 47 - 75 % [place] Segs Absolute 4.70 [place] WBC (Bld) [#/Vol] 8.2 10*3/uL [place] WBC (Bld) [#/Vol] NOT REPORTED per 100 WBC [place] WBC Morphology NOT REPORTED [place] Comprehensive Metabolic Pane salima 09-13-2020 Albumin [Mass/Vol] 4.3 g/dL 3.5 - 5.2 g/dL [place] Albumin/Globulin [Mass ratio] NOT REPORTED [place] ALP [Catalytic activity/Vol] 99 U/L 35 - 104 U/L [place] ALT [Catalytic activity/Vol] 22 U/L 5 - 33 U/L [place] Anion gap [Moles/Vol] 11 mmol/L 9 - 17 mmol/L [place] AST [Catalytic activity/Vol] 22 U/L <32 [place] Bilirubin Ql (U) 0.73 mg/dL 0.3 - 1.2 mg/dL [place] Bun/Cre Ratio 25 High [place], [place] Calcium [Mass/Vol] 9.7 mg/dL 8.6 - 10. 4 mg/dL [place] Chloride [Moles/Vol] 103 mmol/L 98 - 10 7 mmol/L [place] CO2 [Moles/Vol] 26 mmol/L 20 - 31 mmol/L [place] Creatinine [Mass/Vol] 0.77 mg/dL 0.5 - 0.9 mg/dL [place] GFR >60 >60 mL/min [place], [place] GFR Non- >60 >60 mL/min [place] GFR/1.73 sq M predicted among non-blacks MDRD (S/P/Bld) [Vol rate/Area] NOT REPORTED [place] GFR/1.73 sq M predicted among non-blacks MDRD (S/P/Bld) [Vol rate/Area] [place] Comment on above: Average GFR for 70 o r more years old: 75 mL/min/1.73sq m Chronic Kidney Disease: <60 mL/min/1.73sq m Kidney failure: <15 mL/min/1.73sq m eGFR calculated using average adult body mass. Additional eGFR calculator available at: http://[email or web address]_crcl_[email or web address] Glucose [Mass/Vol] 139 mg/dL High 70 - 99 mg/dL [place] Interpretation and review of laboratory results Abnormal [place] Potassium [Moles/Vol] 4.1 mmol/L 3.7 - 5.3 mmol/L [place] Protein [Mass/Vol] 7.7 g/dL 6.4 - 8.3 g/dL [place] Sodium [Moles/Vol] 140 mmol/L 135 - 144 mmol/L [place] Urea nitrogen [Mass/Vol] 19 mg/dL 8 - 23 mg/dL [place] Lipid Panelon 09-13-2020 Cholesterol [Mass/Vol] 150 mg/dL <200 [place] Comment on above: Cholesterol Guidelines: <200 Desirable 200-240 Borderline >240 Undesirable Cholesterol in HDL [Mass/Vol] 49 mg/dL >40 [place] Comment on above: HDL Guidelines: <40 Undesirable 40-59 Borderline >59 Desirable Cholesterol in LDL [Mass/Vol] 67 mg/dL 0 - 130 mg/dL [place] Comment on above: LDL Guidelines: <100 Desirable 100-129 Near to/above Desirable 130-159 Borderline >159 Undesirable Direct (measured) LDL and calculated LDL are not interchangeable tests. Cholesterol in VLDL [Mass/Vol] NOT REPORTED High 1 - 30 mg/dL [place] Cholesterol.total/Chol esterol in HDL [Mass ratio] 3.1 {ratio} <5 [place] Interpretation and review of laboratory results Abnormal [place] Triglyceride [Mass/Vol] 171 mg/dL High <150 [place] Comment on above: Triglyceride Guidelines: <150 Desirable 150-199 Borderline 200-499 High >499 Very high Based on AHA Guidelines for fasting triglyceride, August 2012. Magnesiumon 09-13-2020 Magnesium [Mass/Vol] 1.9 mg/dL 1.6 - 2 .6 mg/dL [place] Otheron 09-13-2020 Immature granulocytes (Bld) [#/Vol] NOT REPORTED 0 % [place] Patient Fasting?on 0 Patient Fasting? YES [place] TSH with Reflexon 09-13-2020 TSH Qn 2.67 m[IU]/L [place] Vitamin D 25 Hydroxyon 09-13 Vit D, 25-Hydroxy 34.7 ng/mL 30 - 100 ng/mL [place] Comment on above: Reference Range: Vitamin D status Range Deficiency <20 ng/mL Mild Deficiency 20-30 ng/mL Sufficiency 30-100 ng/mL Toxicity >100 ng/mL XR CHEST (2 VW)on 09-13-2020 Cardiomegaly, ASVD, pulmonary hyperinflation with the probable underlying COPD. [place] EXAM: XR CHEST (2 VW) HISTORY: [...] low cervical metallic plate fusion is noted. [place] Anupam, Mhpn Incoming Radiant Results From [employer] - 09/13/2020 11:58 AM EDT EXAM: XR [...] pulmonary hyperinflation with the probable underlying COPD. [place] CBC Auto Differentialon 12-0 Basophils (Bld) [#/Vol] 0.00 10*3/uL [place] Basophils/100 WBC (Bld) 0 % 0 - 2 % [place] Differential Type YES [facility] [place] Eosinophils (Bld) [#/Vol] 0.40 10*3/uL [place] Eosinophils/100 WBC (Bld) 6 % High 0 - 5 % [place] Erythrocyte distribution width (RBC) [Ratio] 13.7 % 12.1 - 15.2 % [place] Hematocrit (Bld) [Volume fraction] 39.4 % 36 - 46 % [place] Hemoglobin (Bld) [Mass/Vol] 13.4 g/dL 12 - 16 g/dL [place] Interpretation and review of laboratory results Abnormal [place] Lymphocytes (Bld) [#/Vol] 3.00 10*3/uL [place] Lymphocytes/100 WBC (Bld) 40 % 15 - 40 % [place] MCH (RBC) [Entitic mass] 32.3 pg 26 - 34 pg [place] MCHC (RBC) [Mass/Vol] 34.0 g/dL 31 - 37 g/dL [place] MCV (RBC) [Entitic vol] 95.0 fL 80 - 100 fL [place] Monocytes (Bld) [#/Vol] 0.60 10*3/uL [place] Monocytes/100 WBC (Bld) 8 % 4 - 8 % [place] Platelet mean volume (Bld) [Entitic vol] NOT REPORTED 6 - 12 fL [place] Platelets (Bld) [#/Vol] 243 10*3/uL [place] Platelets (Bld) [#/Vol] NOT REPORTED [place] RBC (Bld) [#/Vol] 4.15 10*6/uL 4 - 5.2 m/uL [place] RBC morphology finding Nom (Bld) NOT REPORTED [place] Segmented neutrophils/100 WBC (Bld) 46 % Low 47 - 75 % [place] Segs Absolute 3.60 [place] WBC (Bld) [#/Vol] NOT REPORTED per 100 WBC [place] WBC (Bld) [#/Vol] 7.7 10*3/uL [place] WBC Morphology NOT REPORTED [place] Comprehensive Metabolic Pane salima 10-27-2019 Albumin [Mass/Vol] 4.2 g/dL 3.5 - 5.2 g/dL [place] Albumin/Globulin [Mass ratio] NOT REPORTED [place] ALP [Catalytic activity/Vol] 107 U/L High 35 - 104 U/L [place] ALT [Catalytic activity/Vol] 21 U/L 5 - 33 U/L [place] Anion gap [Moles/Vol] 15 mmol/L 9 - 17 mmol/L [place] AST [Catalytic activity/Vol] 17 U/L <32 [place] Bilirubin Ql (U) 0.67 mg/dL 0.3 - 1.2 mg/dL [place] Bun/Cre Ratio 20 [place], [place] Calcium [Mass/Vol] 10.0 mg/dL 8.6 - 10. 4 mg/dL [place] Chloride [Moles/Vol] 104 mmol/L 98 - 10 7 mmol/L [place] CO2 [Moles/Vol] 23 mmol/L 20 - 31 mmol/L [place] Creatinine [Mass/Vol] 0.71 mg/dL 0.5 - 0.9 mg/dL [place] GFR >60 >60 mL/min [place] GFR Non- >60 >60 mL/min [place] GFR/1.73 sq M predicted among non-blacks MDRD (S/P/Bld) [Vol rate/Area] NOT REPORTED [place] GFR/1.73 sq M predicted among non-blacks MDRD (S/P/Bld) [Vol rate/Area] [place] Comment on above: Average GFR for 70 o r more years old: 75 mL/min/1.73sq m Chronic Kidney Disease: <60 mL/min/1.73sq m Kidney failure: <15 mL/min/1.73sq m eGFR calculated using average adult body mass. Additional eGFR calculator available at: http://www.[employer].BrightTALK/multiple_crcl_2012.htm Glucose [Mass/Vol] 136 mg/dL High 70 - 99 mg/dL [place] Interpretation and review of laboratory results Abnormal [place] Potassium [Moles/Vol] 3.6 mmol/L Low 3.7 - 5.3 mmol/L [place] Protein [Mass/Vol] 7.6 g/dL 6.4 - 8.3 g/dL [place] Sodium [Moles/Vol] 142 mmol/L 135 - 144 mmol/L [place] Urea nitrogen [Mass/Vol] 14 mg/dL 8 - 23 mg/dL [place] Lipid Panelon 10-27-2019 Cholesterol [Mass/Vol] 152 mg/dL <200 [place] Comment on above: Cholesterol Guidelines: <200 Desirable 200-240 Borderline >240 Undesirable Cholesterol in HDL [Mass/Vol] 59 mg/dL >40 [place] Comment on above: HDL Guidelines: <40 Undesirable 40-59 Borderline >59 Desirable Cholesterol in LDL [Mass/Vol] 70 mg/dL 0 - 130 mg/dL [place] Comment on above: LDL Guidelines: <100 Desirable 100-129 Near to/above Desirable 130-159 Borderline >159 Undesirable Direct (measured) LDL and calculated LDL are not interchangeable tests. Cholesterol in VLDL [Mass/Vol] NOT REPORTED 1 - 30 mg/dL [place] Cholesterol.total/Chol esterol in HDL [Mass ratio] 2.6 {ratio} <5 [place] Triglyceride [Mass/Vol] 114 mg/dL <150 [place] Comment on above: Triglyceride Guidelines: <150 Desirable 150-199 Borderline 200-499 High >499 Very high Based on AHA Guidelines for fasting triglyceride, August 2012. Magnesiumon 10-27-2019 Magnesium [Mass/Vol] 1.9 mg/dL 1.6 - 2 .6 mg/dL [place] Otheron 10-27-2019 Immature granulocytes (Bld) [#/Vol] NOT REPORTED [place] Patient Fasting?on 9 Patient Fasting? YES [place] TSH with Reflexon 10-27-2019 TSH Qn 2.50 m[IU]/L [place] Vitamin D 25 Hydroxyon 10-27 Interpretation and review of laboratory results Abnormal [place] Vit D, 25-Hydroxy 6.4 ng/mL Low 30 - 100 ng/mL [place] Comment on above: Reference Range: Vitamin D status Range Deficiency <20 ng/mL Mild Deficiency 20-30 ng/mL Sufficiency 30-100 ng/mL Toxicity >100 ng/mL Vital Signs Date Time Vital Sign Value Performing Clinician Facility 01-03-2024 13:10-0500 Body height 167.6 cm Keena Mcguire DO Work Phone: [facility] 01-03-2024 13:10-0500 Body mass index (BMI) [Ratio] 37.93 kg/m2 Keena Mcguire DO Work Phone: [facility] 01-03-2024 13:10-0500 Body weight 106.59 kg Keena Mcguire DO Work Phone: [facility] 01-03-2024 13:04-0500 Body temperature 97.39 [degF] Keena Mcguire DO Work Phone: [facility] 12-26-2022 09:18-0500 Respiratory rate 18 /min Андрей Rodriguez MD Work Phone: [facility] 12-26-2022 07:32-0500 Body temperature 97.9 [degF] Андрей Rodriguez MD Work Phone: [facility] 12-26-2022 07:32-0500 Diastolic blood pressure 66 mm[Hg] Андрей Rodriguez MD Work Phone: [facility] 12-26-2022 07:32-0500 Heart rate 85 /min Андрей Rodriguez MD Work Phone: [facility] 12-26-2022 07:32-0500 SaO2% (BldA) [Mass fraction] 99 % Андрей Rodriguez MD Work Phone: [facility] 12-26-2022 07:32-0500 Systolic blood pressure 133 mm[Hg] Андрей Rodriguez MD Work Phone: [facility] 12-25-2022 01:15-0500 Body mass index (BMI) [Ratio] 40.96 kg/m2 Андрей Rodriguez MD Work Phone: [facility] 12-25-2022 01:15-0500 Body weight 115.12 kg Андрей Rodriguez MD Work Phone: [facility] 12-18-2022 07:27-0500 Body height 167.6 cm Андрей Rodriguez MD Work Phone: [facility] 12-15-2022 20:36-0500 Diastolic blood pressure 73 mm[Hg] [facility] 12-15-2022 20:36-0500 Mean blood pressure 89 mm[Hg] [facility] 12-15-2022 20:36-0500 Systolic blood pressure 122 mm[Hg] [facility] 12-15-2022 20:10-0500 Heart rate 80 /min [facility] 12-15-2022 20:10-0500 SaO2% (BldA) [Mass fraction] 98 % [facility] 12-15-2022 20:10-0500 Respiratory rate 18 /min [facility] 12-15-2022 20:09-0500 Body temperature 98.24 [degF] [facility] 12-15-2022 20:09-0500 Diastolic blood pressure 73 mm[Hg] [facility] 12-15-2022 20:09-0500 Mean blood pressure 90 mm[Hg] [facility] 12-15-2022 20:09-0500 Systolic blood pressure 122 mm[Hg] [facility] 12-15-2022 18:40-0500 Hourly Rounding [facility] 12-15-2022 18:40-0500 Promise to Return [facility] 12-15-2022 17:17-0500 Hourly Rounding [facility] 12-15-2022 17:17-0500 Promise to Return [facility] 12-15-2022 16:26-0500 Hourly Rounding [facility] 12-15-2022 16:26-0500 Promise to Return [facility] 12-15-2022 15:34-0500 Heart rate 67 /min [facility] 12-15-2022 15:34-0500 SaO2% (BldA) [Mass fraction] 95 % [facility] 12-15-2022 15:34-0500 Body temperature 97.52 [degF] [facility] 12-15-2022 15:33-0500 Diastolic blood pressure 77 mm[Hg] [facility] 12-15-2022 15:33-0500 Mean blood pressure 89 mm[Hg] [facility] 12-15-2022 15:33-0500 Systolic blood pressure 112 mm[Hg] [facility] 12-15-2022 11:45-0500 Heart rate 66 /min [facility] 12-15-2022 11:45-0500 SaO2% (BldA) [Mass fraction] 97 % [facility] 12-15-2022 11:44-0500 Body temperature 98.06 [degF] [facility] 12-15-2022 11:44-0500 Mean blood pressure 83 mm[Hg] [facility] 12-15-2022 08:59-0500 Heart rate 74 /min [facility] 12-15-2022 00:27-0500 Blood Pressure Location [facility] 12-15-2022 00:27-0500 Respiratory rate 16 /min [facility] 12-14-2022 20:22-0500 gluc 159 mg/dL [facility] 12-14-2022 16:27-0500 gluc 128 mg/dL [facility] 12-14-2022 16:00-0500 Body temperature 97.7 [degF] [facility] 12-14-2022 11:50-0500 gluc 109 mg/dL [facility] 12-14-2022 08:44-0500 Heart rate 66 /min [facility] 12-14-2022 00:55-0500 Blood Pressure Location [facility] 12-14-2022 00:55-0500 Mean blood pressure 89 mm[Hg] [facility] 12-14-2022 00:55-0500 Respiratory rate 18 /min [facility] 12-13-2022 09:51-0500 Heart rate 70 /min [facility] 12-13-2022 09:00-0500 Body temperature 98.06 [degF] [facility] 12-13-2022 09:00-0500 Heart rate 64 /min [facility] 12-13-2022 04:24-0500 Blood Pressure Location [facility] 12-13-2022 01:36-0500 Mean blood pressure 85 mm[Hg] [facility] 12-13-2022 00:00-0500 Body temperature 97.34 [degF] [facility] 12-13-2022 00:00-0500 Heart rate 67 /min [facility] 12-12-2022 22:07-0500 Respiratory rate 25 /min [facility] 12-12-2022 21:00-0500 Respiratory rate 30 /min [facility] 12-12-2022 20:04-0500 Respiratory rate 27 /min [facility] 12-12-2022 19:02-0500 Heart rate 69 /min [facility] 12-07-2022 18:33-0500 Body height 167.6 cm Lakia Latasha DO Work Phone: [email or web address] 12-07-2022 18:33-0500 Body mass index (BMI) [Ratio] 43.58 kg/m2 Lakia Maier DO Work Phone: [email or web address] 12-07-2022 18:33-0500 Body temperature 98.01 [degF] Lakia Reza DO Work Phone: [email or web address] 12-07-2022 18:33-0500 Body weight 122.47 kg Lakia Latasha DO Work Phone: [email or web address] 12-07-2022 18:33-0500 Diastolic blood pressure 84 mm[Hg] Lakia Latasha DO Work Phone: [email or web address] 12-07-2022 18:33-0500 Heart rate 79 /min Lakia Reza DO Work Phone: [email or web address] 12-07-2022 18:33-0500 Respiratory rate 20 /min Lakia Latasha DO Work Phone: [email or web address] 12-07-2022 18:33-0500 SaO2% (BldA) [Mass fraction] 94 % Lakia Latasha DO Work Phone: [email or web address] 12-07-2022 18:33-0500 Systolic blood pressure 162 mm[Hg] Lakia Reza DO Work Phone: [email or web address] 06-30-2022 08:17-0400 Blood Pressure Location Efrain DERBY [facility] 06-30-2022 08:17-0400 Body temperature 98.06 [degF] Efrain ESPARZA [facility] 06-30-2022 08:17-0400 Diastolic blood pressure 82 mm[Hg] Efrain ESPARZA [facility] 06-30-2022 08:17-0400 Heart rate 61 /min Efrain ESPARZA [facility] 06-30-2022 08:17-0400 SaO2% (BldA) [Mass fraction] 97 % Efrain ESPARZA [facility] 06-30-2022 08:17-0400 Systolic blood pressure 138 mm[Hg] Efrain ESPARZA [facility] 10-02-2021 00:45-0400 Diastolic blood pressure 112 mm[Hg] Michael Gutierrez MD Work Phone: [facility] [employer] 10-02-2021 00:45-0400 SaO2% (BldA) [Mass fraction] 97 % [facility] 10-02-2021 00:45-0400 Systolic blood pressure 132 mm[Hg] [facility]rez MD [facility] 10-02-2021 00:13-0400 Body mass index (BMI) [Ratio] 41.16 kg/m2 Michael Gutierrez MD [facility] 10-02-2021 00:13-0400 Body temperature 97.3 [degF] Michael [facility]rez MD [facility] 10-02-2021 00:13-0400 Body weight 115.67 kg Michael Gutierrez MD Work Phone: [email or web address] 10-02-2021 00:13-0400 Heart rate 71 /min Michael Gutierrez MD Work Phone: [email or web address] 10-02-2021 00:13-0400 Respiratory rate 16 /min Michael Gutierrez MD Work Phone: [email or web address] 06-11-2021 08:35-0400 Body mass index (BMI) [Ratio] 40.35 kg/m2 Xena Andrews MD Work Phone: [email or web address] Work Phone: 06-11-2021 08:35-0400 Body temperature 98.6 [degF] Xena Andrews MD Work Phone: [email or web address] Work Phone: 06-11-2021 08:35-0400 Body weight 113.4 kg Xena Andrews MD Work Phone: [email or web address] Work Phone: 06-11-2021 08:35-0400 Diastolic blood pressure 63 mm[Hg] Xena Andrews MD Work Phone: [email or web address] Work Phone: 06-11-2021 08:35-0400 Heart rate 66 /min Xena Andrews MD Work Phone: [email or web address] Work Phone: 06-11-2021 08:35-0400 Respiratory rate 18 /min Xena Andrews MD Work Phone: [email or web address] Work Phone: 06-11-2021 08:35-0400 SaO2% (BldA) [Mass fraction] 95 % Xena Andrews MD Work Phone: [email or web address] Work Phone: 06-11-2021 08:35-0400 Systolic blood pressure 164 mm[Hg] Xena Andrews MD Work Phone: [email or web address] Work Phone: 03-08-2021 11:43-0400 BMI (Body Mass Index) 40.35 kg/m2 [facility] Phone: 03-08-2021 11:43-0400 Body Temperature 98.29 [degF] [facility] Phone: 03-08-2021 11:43-0400 Body weight 113.4 kg [facility] Phone: 03-08-2021 11:43-0400 BP Diastolic 74 mm[Hg] [facility] Phone: 03-08-2021 11:43-0400 BP Systolic 164 mm[Hg] [facility] Phone: 03-08-2021 11:43-0400 Height 167.6 cm [facility] Phone: 03-08-2021 11:43-0400 Pulse (Heart Rate) 83 /min [facility] Phone: 03-08-2021 11:43-0400 Pulse Oximetry 95 % [facility] Phone: 03-08-2021 11:43-0400 Respiratory Rate 20 /min [facility] Phone: Encounters Encounter Date Encounter Type Care Provider Facility Start: 01-03-2024 End: 01-03-2024 ambulatory KEENA MCGUIRE Not Available Start: 01-03-2024 End: 01-03-2024 Patient encounter procedure Keena Mcguire DO Work Phone: [facility] Comment on above: Bilateral carpal petr fifi syndrome (Primary Dx); Left hip pain Start: 12-03-2023 End: [facility]: 09-06-2023 End: 09-09-2023 ambulatory [facility] Start: 03-05-2023 End: 03-05-[address] AQUILINO MEYER Facility:[facility] Start: 02-28-2023 End: 02-28-[address] AQUILINO MEYER Facility:[facility] Start: 02-23-2023 End: 02-23-2023 ambulatory BEN SHAYY Facility:[facility] Start: 01-29-2023 End: 01-29-[address] AQUILINO MEYER Facility:[facility] Start: 01-26-2023 End: 01-26-2023 ambulatory DIMITRIOS WILLETT . Facility:[facility] Start: 01-15-2023 ambulatory Efrain ESPARZA Facility: [facility] Start: 12-16-2022 End: 12-26-2022 Evaluation and management of inpatient [facility] Start: 12-16-2022 End: 12-26-2022 Evaluation and management of inpatient Андрей Rodriguez MD Work Phone: [facility] MED SURG TELEMETRY Comment on above: Closed fracture of r ight ankle, initial encounter (Primary Dx) Start: 12-12-2022 End: 12-15-2022 Observation David WHITEHEAD [facility] Start: 12-07-2022 End: 12-07-2022 Emergency department patient visit [facility] Start: 12-07-2022 End: 12-07-2022 Emergency department patient visit [facility] Work Phone: [facility] ED Comment on above: Closed fracture of d istal end of right fibula, unspecified fracture morphology, initial encounter (Primary Dx) Start: 09-28-2022 End: 09-28-2022 Patient encounter procedure Efrain ESPARZA [facility] Start: 08-08-2022 End: 08-10-2022 Subsequent hospital visit by physician [facility] Echo Room [facility] ECHO Comment on above: Aortic valve stenosi s, etiology of cardiac valve disease unspecified Atrial fibrillation, unspecified type (HCC); Essential hypertension; Coronary artery disease involving [place] coronary artery of [place] heart without angina pectoris; Hyperlipidemia, unspecified hyperlipidemia type; Ischemic cardiomyopathy; Vitamin D deficiency disease; Mitral valve insufficiency, unspecified etiology Start: 07-25-2022 End: 07-25-2022 Patient encounter procedure MERISSA DONALD [facility] Start: 06-30-2022 End: 06-30-2022 Patient encounter procedure Efrain ESPARZA [facility] Start: 06-19-2022 End: 06-19-2022 Patient encounter procedure Efrain ESPARZA [facility] Start: 05-22-2022 End: 08-20-2022 Recurring ALMA HIGH [facility] Start: 05-03-2022 End: 05-05-2022 Subsequent hospital visit by physician [facility] Additional Xray At [facility] Radiology Comment on above: Pain in both wrists Start: 05-03-2022 End: 05-03-2022 Patient encounter procedure Efrain ESPARZA [facility] Start: 05-03-2022 End: 05-05-2022 Subsequent hospital visit by physician Efrain Espazra MD Work Phone: [facility] Radiology Start: 11-07-2021 End: 11-07-2021 Subsequent hospital visit by physician Berkley Garza [facility] Physical Therapy Comment on above: Arrived Start: 10-02-2021 End: 10-02-2021 Emergency department patient visit Michael Gutierrez MD Work Phone: [facility] ED Comment on above: Contusion of ribs, r ight, initial encounter (Primary Dx); Contusion of thoracic spine; Contusion of lower back, initial encounter Start: 09-12-2021 End: 09-14-2021 Subsequent hospital visit by physician Cesar Echo Room [facility] ECHO Comment on above: Mitral valve insuffi ciency, unspecified etiology Atrial fibrillation, unspecified type (HCC); Coronary artery disease involving [place] coronary artery of [place] heart without angina pectoris; Essential hypertension; Hyperlipidemia, unspecified hyperlipidemia type; Ischemic cardiomyopathy; Vitamin D deficiency disease Start: 06-15-2021 End: 06-17-2021 Subsequent hospital visit by physician Efrain Esparza MD Work Phone: [facility] Radiology Start: 06-13-2021 End: 06-15-2021 [facility] on above: Pain of left calf Start: 06-11-2021 End: 06-11-2021 Emergency department patient visit Xena Andrews MD Work Phone: [facility] ED Comment on above: Pain in left hip (Pr imary Dx); Pain of left calf; Essential hypertension; Osteoarthritis of left hip, unspecified osteoarthritis type Start: 06-09-2021 End: 06-11-2021 Subsequent hospital visit by physician [facility] Additional Xray At [facility] Radiology Comment on above: Paresthesia Start: 03-08-2021 End: 03-08-2021 Emergency department patient visit King Frazier Work Phone: [facility] ED Comment on above: Injury of head, init ial encounter (Primary Dx) Start: 02-08-2021 End: 05-15-2022 Recurring HOLLYJosé FARFAN [facility] Start: 02-02-2021 End: 02-04-2021 Subsequent hospital visit by physician Ian Mri Scanner [facility] MRI Comment on above: Left leg weakness; Lumbosacral radiculopathy; Has numbness Start: 10-06-2020 End: 10-08-2020 Subsequent hospital visit by physician Cesar Additional Xray At [facility] Radiology Comment on above: Primary osteoarthrit is of right knee Start: 10-06-2020 End: 10-08-2020 Subsequent hospital visit by physician Efrain Esparza [facility] Start: 09-24-2020 End: 09-26-2020 Subsequent hospital visit by physician Cesar [facility] Lab Comment on above: Bruit Start: 09-13-2020 End: 09-15-2020 Subsequent hospital visit by physician Cesar Echo Room Maranda Callard [facility] RESPIRATORY THERAPY Comment on above: Atrial fibrillation, unspecified type (HCC); Coronary artery disease involving [place] coronary artery of [place] heart without angina pectoris; Essential hypertension Ischemic cardiomyopa thy Atrial fibrillation, unspecified type (HCC); Coronary artery disease involving [place] coronary artery of [place] heart without angina pectoris; Essential hypertension; Hyperlipidemia, [...] DTaP/Tdap/Td vaccine (2 - Td or Tdap) [facility] Start: 08-27-2030 DTaP/Tdap/Td vaccine (2 - Td) DTaP/Tdap/Td vaccine (2 - Td) [facility] Work Phone: Start: 09-13-2023 End: 09-13-2023 Patient encounter procedure 09/13/2023 Office Visit Cardiology Emiliano Deng MD [address] [place] [id number] [facility] [employer] Start: 08-08-2023 Lipid panel Lipids [facility] Start: 07-27-2023 Influenza vaccination Influenza Vacc ine (#1) [facility] Start: 09-14-2022 End: 09-14-2022 Patient encounter procedure 09/14/2022 Office Visit Cardiology Emiliano Deng MD [address] [place] [address] [facility] [employer] Start: 09-12-2022 Creatinine measurement Creatinine mo nitoring [facility] Start: 09-12-2022 Lipid panel [facility] Start: 09-12-2022 Potassium monitoring Potassium monit [facility] Start: 07-27-2022 Influenza vaccination Flu vaccine (# 1) [facility] Start: 12-22-2021 COVID-19 Vaccine (4 - Booster for Pfizer series) COVID-19 Vaccine (4 - Booster for Pfizer series) [facility] Start: 11-17-2021 End: 11-17-2021 Patient encounter [...] Office Visit Cardiology Emiliano Deng MD [address] [place] [address] [facility] [employer] Start: 09-13-2021 Creatinine measurement Creatinine mo [place], [place] Start: 09-13-2021 Lipid panel Lipid screen [place], [place] Start: 09-13-2021 Potassium monitoring Potassium monit [place], [place] Start: 07-27-2021 Influenza vaccination [facility] (# 1[facility]: Start: 06-13-2021 End: 07-12-2021 VL DUP LOWER EXTREMITY VENOUS LEFT VL DUP LOWER EXTREMITY VENOUS LEFT Imaging Routine Pain of left calf Expected: 06/13/2021, Expires: 07/12/2021 [employer] Phone: Comment on above: Expected: 06/13/2021 , Expires: 07/12/2021 Start: 10-27-2020 Creatinine measurement Creatinine mo [place], [place] Start: 10-27-2020 Lipid panel Lipid screen [place], [place] Start: 10-27-2020 Potassium monitoring Potassium monit [place], [place] Start: 10-22-2020 Shingles Vaccine (2 of 2) Shingles Vaccine (2 of 2) [facility] [employer] Start: 09-20-2020 End: 09-20-2020 Office Visit 09/20/2020 Office Visit Cardiology Emiliano Deng MD [address] [place] [address] [facility] [employer] Start: 07-27-2020 Influenza vaccination Flu vaccine (# 1) [place], [place] Start: 06-27-2020 Creatinine monitoring Creatinine mon [place]oring [place] Start: 06-27-2020 Lipid screen Lipid screen [place], [place] Start: 06-27-2020 Potassium monitoring Potassium monit [place]ing [place] Start: 11-04-2019 End: 11-04-2019 Office Visit 11/04/2019 Office Visit Cardiology Emiliano Deng MD [address] [place] [address] [phone] [facility] [employer] Start: 07-27-2019 Influenza vaccination Flu vaccine (# 1) [place] Start: 05-18-2019 Annual Wellness Visi t (AWV) Annual Wellness Visit (AWV) [facility] Start: 2002 DEXA (modify frequen cy per FRAX score) DEXA (modify frequency per FRAX score) [place] Start: 2002 Pneumococcal 65+ yea rs Vaccine (1 of 1 - PPSV23) Pneumococcal 65+ years Vaccine (1 of 1 - PPSV23) [place] Start: 2002 Pneumococcal 65+ yea rs Vaccine (2 of 2 - PPSV23) Pneumococcal 65+ years Vaccine (2 of 2 - PPSV23) [facility] [employer] Phone: Start: 1992 Screening for osteoporosis DEXA (modify frequency per FRAX score) [facility] Start: 1987 Shingles Vaccine (1 of 2) Shingles Vaccine (1 of 2) [place] Start: 1956 DTaP/Tdap/Td vaccine (1 - Tdap) DTaP/Tdap/Td vaccine (1 - Tdap) [place] Start: 1953 COVID-19 Vaccine (1 of 2) COVID-19 Vaccine (1 of 2) [facility] [employer] Phone: Start: 1953 COVID-19 Vaccine (1) COVID-19 Vaccin e (1) [facility] [employer] Phone: Start: 1949 COVID-19 Vaccine (1) COVID-19 Vaccin e (1) [employer] Phone: Start: 1949 Depression Screen Depression Screen [facility] [employer] Start: 1948 DTaP/Tdap/Td vaccine (1 - Tdap) DTaP/Tdap/Td vaccine (1 - Tdap) [facility] [place] Start: 1937 Annual Wellness Visi t (AWV) Annual Wellness Visit (AWV) [facility] [employer] Dup-scan xtr veins complete bilateral study VASCULAR REPORT Imaging Ordered: 06/14/2021 [employer] Phone: Comment on above: Ordered: 06/14/2021 End: 09-13-2020 ECHO Complete 2D W Doppler W Color ECHO Complete 2D W Doppler W Color Echocardiography Routine Ischemic cardiomyopathy 1 Occurrences starting 09/13/2020 until 09/13/2020 [facility] Comment on above: 1 Occurrences starti ng 09/13/2020 until 09/13/2020 End: 09-12-2021 ECHO Complete 2D W Doppler W Color ECHO Complete 2D W Doppler W Color Echocardiography Routine Mitral valve insufficiency, unspecified etiology 1 Occurrences starting 09/12/2021 until 09/12/2021 [employer] Phone: Comment on above: 1 Occurrences starti ng 09/12/2021 until 09/12/2021 End: 08-08-2022 ECHO Complete 2D W Doppler W Color ECHO Complete 2D W Doppler W Color Echocardiography Routine Aortic valve stenosis, etiology of cardiac valve disease unspecified 1 Occurrences starting 08/08/2022 until 08/08/2022 [facility] [employer] Phone: Comment on above: 1 Occurrences starti ng 08/08/2022 until 08/08/2022 EKG 12 Lead [facility] [place] End: 09-24-2020 VL DUP CAROTID BILATERAL VL DUP CAROTID BILATERAL Imaging Routine Bruit 1 Occurrences starting 09/24/2020 until 09/24/2020 [place] Comment on above: 1 Occurrences starti ng 09/24/2020 until 09/24/2020 VL DUP CAROTID BILATERAL VL DUP CAROTID BILATERAL Imaging Routine Bruit 09/24/2020 3:28 PM EDT [email or web address]- [place], [place] XR Hip - left 3 Views XR hip lef t 2 or 3 views Imaging Routine Left hip pain 01/03/2024 12:50 PM EST [facility] [employer] Phone: End: 10-02-2021 XR RIBS RIGHT INCLUDE CHEST (MIN 3 VIEWS) XR RIBS RIGHT INCLUDE CHEST (MIN 3 VIEWS) Imaging Routine Once for 1 Occurrences starting 10/02/2021 until 10/02/2021 [email or web address] Work Phone: Comment on above: Once for 1 Occurrenc es starting 10/02/2021 until 10/02/2021 XR RIBS RIGHT INCLUD E CHEST (MIN 3 VIEWS) XR RIBS RIGHT INCLUDE CHEST (MIN 3 VIEWS) Imaging STAT 10/02/2021 1:29 AM EDT [email or web address] Work Phone: Immunizations Immunization Date Immunization Notes Care Provider Fa cami 09-14-2022 SARS-CoV-2 (COVID-19 ) [id number] [facility] 09-06-2022 influenza virus vacc ine, unspecified formulation [facility] 09-13-2021 influenza virus vacc ine, unspecified formulation [employer] [facility] Comment on above: Result Comment: [facility] 08-22-2021 SARS-CoV-2 (COVID-19 ) mRNA BNT-162b2 [facility] Comment on above: Result Comment: [facility] 01-21-2021 SARS-CoV-2 (COVID-19 ) mRNA BNT-162b2 [facility] Comment on above: Result Comment: Brittany Pinon 12-31-2020 SARS-CoV-2 (COVID-19 ) mRNA BNT-162b2 [facility] Comment on above: Result Comment: Brittany Pinon 08-27-2020 influenza virus vacc ine, unspecified formulation Efrain ESPARZA [facility] 08-27-2020 tetanus toxoid, redu desiree diphtheria toxoid, and acellular pertussis vaccine, adsorbed Efrain ESPARZA [facility] 08-27-2020 zoster vaccine recombinant Efrain ESPARZA [facility] 09-04-2019 influenza virus vacc ine, unspecified formulation Efrain ESPARZA [facility] 08-26-2019 influenza virus vacc ine, unspecified formulation Efrain ESPARZA [facility] 08-26-2018 influenza virus vacc ine, unspecified formulation Efrain ESPARZA [facility] 08-27-2017 influenza virus vacc ine, unspecified formulation Efrain ESPARZA [facility] 10-11-2016 pneumococcal polysaccharide vaccine, 23 valent Efrain ESPARZA [facility] 08-29-2016 influenza virus vacc ine, unspecified formulation Efrain ESPARZA [facility] 08-29-2016 pneumococcal conjuga te vaccine, 13 valent Efrain ESPARZA [facility] 08-28-2016 pneumococcal conjuga te vaccine, 13 valent Efrain ESPARZA [facility] 08-27-2013 influenza virus vacc ine, unspecified formulation Efrain ESPARZA [facility] 08-27-2013 pneumococcal polysaccharide vaccine, 23 valent Efrain ESPARZA [facility] Payers Date Payer Category Payer Medicare [employer] MEDICARE UHC DUAL COMPLETE [id number] 2023-Present [address] [place] [address] [id number] 2019 Medicaid MEDICAID [facility] [id number] 2019-Present [phone] [address] [place] [address] Medicaid [id number] 2017 Unknown BCBS BCBS - [place] P PO xxxxxxxxxxxx 2017-Present [address] [place] [address] xxxxxxxxxxxx [id number] 2014 Medicaid [id number] 2014 Medicare MEDICARE MEDICAR E PART A AND B xxxxxxxxxxx 2014-Present [phone] [address] [address] [place] [address] xxxxxxxxxxx [id number] 2014 Medicare [id number] 2014 Medicare [id number] 1959 Medicaid [id number] 1937 Unknown [id number] 1937 Unknown [id number] [id number] 1937 Unknown [id number] [id number] 1937 Unknown [id number] [id number] 1937 Unknown [id number] [id number] 1937 Unknown [id number] [id number] 1937 Unknown [id number] [id number] 1937 Unknown [id number] [id number] 1937 Unknown [id number] [id number] 1937 Unknown [id number] [id number] 1937 Unknown [id number] [id number] 1937 Unknown [id number] [id number] 1937 Unknown [id number] [id number] 1937 Unknown [id number] [id number] 1937 Unknown [id number] Social History Date Type Detail Facility Start: 06-30-2019 End: 09-14-2022 Tobacco smoking status NHIS Former smoker [place], [place] History of tobacco use Cigarette Smoker M [place], [place] Start: 1935 Sex Assigned At Not on file [place] Start: 11-04-2019 End: 08-24-2023 Tobacco use and exposure Never used [place] Start: 11-27-2022 End: 12-16-2022 Exposure to SARS-CoV-2 (event) Not sure [employer] Phone: Start: 06-11-2021 End: 12-16-2022 Alcohol intake Ex-drinker (finding) [employer] Phone: Start: 01-03-2024 Sex Assigned At Female F [facility] Tobacco smoking status Never [facility] History of tobacco use Current smoker [id number] [email or web address] Work Phone: Start: 10-31-2022 History SDOH Alcohol Frequency 1 [employer] Phone: Start: 10-31-2022 History SDOH Alcohol Std Drinks 0 [employer] [facility]: Tobacco [facility] Comment on above: denies Tobacco smoking status No Smokin g Status Entered [facility] Start: 08-24-2023 Tobacco smoking stat us NHIS Never smoked tobacco [facility] Start: 01-03-2024 History of Social function [facility] Functional Status Date Assessment Result Facility 12-12-2022 Functional Status No [facility] 12-12-2022 Functional Status [facility] 06-30-2022 Functional Status N/A [facility] Clinical Notes 06-11-2021 to 01-03-2024 Divine Carter MA - 01/03/2024 1:15 PM Mario Alberto Avalos RN - 12/26/2022 12:25 PM Brandy Swain, [facility] - 12/26/2022 10:44 AM AJ [...] by the patient. documented in this encounter [facility] 12-26-2022 History of Present illness Narrative Pt leaves via [facility] transport. Daughter to follow to [facility]. Report called to nurse Jimenez at [facility]. Images from the original note were not included. [facility] Inpatient Discharge Medication Education [...] 12/26/2022 10:11 AM SW received message from [facility] this morning that insurance approval has been received. SW spoke with pt's dtr Osbaldo and they are not able to transport today. SW arranged wheelchair van transport for 12- 1230 pm pharmacy picking tech. Nursing and Osbaldo notified of time. Osbaldo [...] feet Generalized weakness Андрей Rodriguez MD, MD [facility] Hospitalist Patient wanted to get herself washed up at this time. Nursing Faculty assisted with cee care and washed her back. Clothes changed and new brief applied. Assisted patient back to recliner. Patient has no further needs at this time, will continue to monitor. States nausea is better. I think I was just tired . States she is able to take her vitamin E capsule. SW called to [facility] to see if insurance precert had been authorized and they have not had received precert as of yet. MALI faxed updates to [facility] and provided phone number to the floor in case they would receive precert later in the day. MALI following. Anny ROCHAW 12/25/2022 [facility] Occupational Therapy Daily Note Date: 12/25/2022 [...] no LOB. Short Term Goal 5: N/A Secretary Bookkeeper Goals Time Frame for Secretary Bookkeeper Goals : STG=LTG Call light in reach, [...] are for her to go to the long term for further care. Diet: ADULT DIET; Regular; [...] treatment / therapy. Plan to DC to [facility] when approved by insurance. Differential Diagnosis: [...] the patient's current medications (including all prescriptions, orew-ejs-cygdpod products, herbals, cannabis / cannabidiol products, vitamin [...] family brings in outside lunch for patient. [facility] Occupational Therapy Daily Note Date: 12/24/2022 Patient Name: Aleena Gill : 1935 (87 y.o.) Subjective: Pt in chair sleeping upon arrival Pt is PROGRESSING toward goals and independence of Self Care this treatment session Continue to assess Pending Progress Objective ADL Equipment Provided: Bag Turner, Sock aid UE Bathing: Modified independent LE [...] no LOB. Short Term Goal 5: N/A Secretary Bookkeeper Goals Time Frame for Intermediate Goals : STG=LTG Call light in reach, Phone in reach, Use of Gait belt, and Left in chair Time In: 705 Time Out: 740 Timed Coded Minutes: 35 Total Treatment Time: 35 MARIN Franco, OTR/L Date: 12/24/2022 Up from chair and to BR with boot on to RLE. Pt does fairly well. Has small BM. Cee care provided. [facility] Occupational Therapy Daily Note Date: 12/23/2022 Patient Name: Aleena Gill : 1935 (87 y.o.) Subjective: Pt in therapy room following PT session. Pt is PROGRESSING toward goals and independence of Self Care this treatment session Continue to assess Pending Progress Objective Sit to stand: Contact guard assistance Stand to sit: Contact guard assistance Assessment Assessment: Pt in therapy room with INSTRUCTIONAL SERVICES SPECIALIST upon arrivla. Agreeable to work with OTR. Engaged in THAIS UB exercises/activity this am. Addressed band bias machine operator/pinch strength & exercises in all planes of [...] no LOB. Short Term Goal 5: N/A Secretary Bookkeeper Goals Time Frame for Secretary Bookkeeper Goals : STG=LTG Call light in reach, Phone in reach, Use of Gait belt, and Left in chair Time In: 740 Time Out: 810 Timed Coded Minutes: 30 Total Treatment Time: 30 MARIN Franco, OTR/L Date: 12/23/2022 SW met with pt's dtr Merari in pt's room this morning and explained that referral made to [facility] for skilled care and await insurance authorization for her transfer. SW explained to Merari that this will move her up to first on their list for assisted living if she is in their facility for skilled care. SW called to [facility] and spoke with Kirsty, as Ben is off today, and she reports that precert has been started and they are just awaiting insurance approval. MALI provided contact number to SW office and to the hospital floor. SW called and left a message for pt's dtr Osbadlo as well. SW following and await insurance authorization for pt to transfer. Anny Gauthier WOOLING MACHINE OPERATOR VENTILATED RIB FITTER 12/22/2022 SW spoke with pt's dtr Osbaldo and she is in agreement with plan. Pas ID completed and faxed to facility in case pt would discharge over the weekend if prior auth is received. Anny TRUJILLO VENTILATED RIB FITTER 12/22/2022 Hospitalist Progress Note 12/22/2022 12:14 PM [...] -s/p surgical repair by Dr. Mcguire at [facility], continue PT and OT, on Percocet for [...] Already on Anticoagulation Nicholas Rowan MD, MD [facility] Hospitalist [facility] Occupational Therapy Daily Note Date: 12/22/2022 [...] no LOB. Short Term Goal 5: N/A Secretary Bookkeeper Goals Time Frame for Secretary Bookkeeper Goals : STG=LTG Call light in reach, [...] EKG results. No further orders for now. [facility] Occupational Therapy Plan of Care OT Orders [...] no LOB. Short Term Goal 5: N/A Secretary Bookkeeper Goals Time Frame for Intermediate Goals : STG=LTG Dlephine Bonilla OTR/L Date: 12/21/2022 [facility] Occupational Therapy Daily Note Date: 12/21/2022 [...] x5 minutes with SBA and no LOB. Secretary Bookkeeper Goals Time Frame for Secretary Bookkeeper Goals : STG=LTG Call light in reach, [...] pain. Therapy evals and notes sent to [facility], per their request, so determination can be made re: placement. Will assist with discharge planning as appropriate. ALEXANDRU Blair 12/21/2022 Swingbed IDT team meeting held this morning regarding pt progress. Swing bed coordinator reports that pt's dtr has contacted [facility] regarding the assisted living and pt could be transferred there as a skilled pt to be in their facility and then transition to assisted living from there. MALI made referral to [facility] and spoke with Ben. Discussed with [...] faxed information and will await response from [facility]. Anny ROCHAW 12/20/2022 [facility] Occupational Therapy Daily Note Date: 12/20/2022 [...] x5 minutes with SBA and no LOB. Secretary Bookkeeper Goals Time Frame for Secretary Bookkeeper Goals : STG=LTG Call light in reach, Phone in reach, Use of Gait belt, Chair alarm, and Left in chair Time In: 08 Time Out: 923 Timed Coded Minutes: 38 Total Treatment Time: 38 ANTWON Cabrera/Charlotte Date: 12/20/2022 [facility] Swing Bed Interdisciplinary Care Plan Conference Report Recertification for Continued Skilled Care. Patients name:Aleena Gill Date of Conference: 12/20/2022 The Following Information was discussed and agreed upon with the patient and/or Caregivers as listed below. Names of Team Members and Caregivers present for meeting: Wood Web Weaving Machine Operator: Lisset Gauthier Nursing: Zack William Therapy: Zack Juarez, PT; Charlotte Ashraf/LEVIR Catalyst Unit Operator: Reyes Simpson Activities: Amanda Marinelli Pastoral Care: [...] Goal: PO >75% meals and supplements Spiritual: Mu-Ism needs met: [x] Yes [] No [] N/A Notified Stain Sprayer or Devil Tender of admission: [] Yes [] No [x] [...] Time Frame for Intermediate Goals : STG=LTG Physical Therapy: Transfers: Transfers [...] Goal: Participate in 3 activities per week Wood Web Weaving Machine Operator: Plan for Discharge: Update insurance today. Swing bed coordinator reports that pt's dtr has contacted [facility] regarding the assisted living and pt could be transferred there as a skilled pt to be in their facility and then transition to assisted living from there. Follow Up/Services needed: Referral made to [facility] for continued SNF care, await response. Continued skilled needs: PT/OT Skilled Services are for the ongoing condition for which the individual received inpatient care in a hospital. Physician signature certifies patient continued need for SNF inpatient care. Physical Therapy [facility] Physical Therapy Date: 12/20/2022 Patient Name: [...] [] Pt Unavailable due to: Мария Lozada, INSTRUCTIONAL SERVICES SPECIALIST Date: 12/20/2022 Comprehensive Nutrition Assessment Type and [...] muscle mass loss Fluid Accumulation: Mild Extremities Ad Compositor Strength: Not Performed Nutrition Assessment: Continued increased [...] Anthropometric Measures: Height: 5' 6 (167.6 cm) [place] Body Weight (IBW): 130 lbs (59 kg) [...] Used for Energy Requirements: Current Energy (kcal/day): 9517-3827 (11-15) Weight Used for Protein Requirements: [place] Protein (g/day): 63-73 (1.2-1.4) Method Used for [...] Discharge Planning: MARTI SIMPSON RD, LD Contact: [phone] This nurse gives pain medication, see eMAR [...] needs, will continue to monitor. Physical Therapy [facility] Date: 12/19/2022 Physical Therapy Daily Note Patient Name: Aleena Gill : 1935 (87 y.o.) Pt is PROGRESSING toward goals and increased independence of mobility this treatment session Assessment Assessment: Patient seated up in chair after working with MIKE. States she is tired but agrees to do what she can with INSTRUCTIONAL SERVICES SPECIALIST. Performs seated exercises as outlined above but [...] Goals: NA Intermediate Goals Time Frame for Secretary Bookkeeper Goals : 7 days (12/22/2022) Secretary Bookkeeper Goal 1: Patient to transfer sit to stand modified independent Secretary Bookkeeper Goal 2: Patient to transfer supine to sit and sit to supine modified independent Secretary Bookkeeper Goal 3: Patient to ambulate 75 ft x2 with w.walker and protective boot R Le modified independent Intermediate Goal 4: Patient to have good dynamic standing balance to complete ADLS safely Мария [facility]ung [facility] Therapy License Number: INSTRUCTIONAL SERVICES SPECIALIST Date: 12/19/2022 [facility] Occupational Therapy Daily Note Date: 12/19/2022 [...] Treatment Time: 39 JIM Silva Date: 12/19/2022 [facility] Occupational Therapy Daily Note Date: 12/19/2022 [...] multiple reports of feeling tired and she (INSTRUCTIONAL SERVICES SPECIALIST) wore me out . Noticeable SOB, shakiness [...] x5 minutes with SBA and no LOB. Secretary Bookkeeper Goals Time Frame for Secretary Bookkeeper Goals : STG=LTG Inpatient safety: Call light in reach, Phone in reach, Use of Gait belt, Nurse Notified, and Left in chair Time In: 1029 Time Out: 1111 Timed Coded Minutes: 42 Total Treatment Time: 42 JIM Silva Date: 12/19/2022 Private duty care listing and phone number to [facility] left in pt room with pt and her son to give to her dtr. Anny ROCHAW 12/19/2022 OT relays to consumer loan underwriter that patient was short of breath and shaking during ambulation to bathroom. This nurse assesses patient to find her upright in chair talking on telephone. SpO2 reads 93% on room with 108 HR. No sob noted, talking without difficulty. Pt denies pain at this time. Physical Therapy [facility] Date: 12/19/2022 Physical Therapy Daily Note [...] remains in therapy room to work with SHELL SHOP SUPERVISOR. Safety Devices Type of Devices: Gait belt (in w/c in therapy room to work with MIKE) Use of Gait belt and Other Staff Present ; in w/c in therapy room to work with SHELL SHOP SUPERVISOR Time In: 1000 Time Out: 1027 Timed Coded Minutes: 27 Total Treatment Time: 27 Exercises: See Flowsheets Plan Cont Per Plan Of Care Goals Short Term Goals Time Frame for Short Term Goals: NA Secretary Bookkeeper Goals Time Frame for Secretary Bookkeeper Goals : 7 days (12/22/2022) Intermediate Goal 1: Patient to transfer sit to stand modified independent Intermediate Goal 2: Patient to transfer supine to sit and sit to supine modified independent Intermediate Goal 3: Patient to ambulate 75 ft x2 with w.walker and protective boot R Le modified independent Secretary Bookkeeper Goal 4: Patient to have good dynamic standing balance to complete ADLS safely Мария Leung [facility] Therapy License Number: INSTRUCTIONAL SERVICES SPECIALIST Date: 12/19/2022 Physical Therapy [facility] Date: 12/18/2022 Physical Therapy Daily Note [...] She agrees to stay and work with INSTRUCTIONAL SERVICES SPECIALIST. She is able to complete seated exercises [...] Time Frame for Short Term Goals: NA Secretary Bookkeeper Goals Time Frame for Intermediate Goals : 7 days (12/22/2022) Secretary Bookkeeper Goal 1: Patient to transfer sit to stand modified independent Intermediate Goal 2: Patient to transfer supine to sit and sit to supine modified independent Intermediate Goal 3: Patient to ambulate 75 ft x2 with w.walker and protective boot R Le modified independent Secretary Bookkeeper Goal 4: Patient to have good dynamic standing balance to complete ADLS safely Мария [facility] Therapy License Number: INSTRUCTIONAL SERVICES SPECIALIST Date: 12/18/2022 [facility] Occupational Therapy Daily Note Date: 12/18/2022 [...] left in w/c in therapy room w/ INSTRUCTIONAL SERVICES SPECIALIST upon conclusion of OT session. Activity Tolerance: [...] no LOB. Intermediate Goals Time Frame for Secretary Bookkeeper Goals : STG=LTG Other Staff Present : pt left w/ INSTRUCTIONAL SERVICES SPECIALIST Time In: 1330 Time Out: 1411 Timed Coded Minutes: 41 Total Treatment Time: 41 MARIN Franco OTR/L Date: 12/18/2022 SW and business system manager met with pt and pt's dtr Osbaldo. Pt is alert and oriented and cooperative with assessment. Pt is a 87 year old female admitted for generalized weakness from [facility] after an ankle fracture and repair. Pt was admitted on 12/16/2022. Pt lives alone in her apartment in [place]. Pt's dtr lives close and checks on [...] assist with discharge planning. Anny HORVATH 12/18/2022 [facility] Occupational Therapy Evaluation Date: 12/18/2022 Patient Name: Aleena Gill : 1935 (87 y.o.) Gender: female Referring Practitioner: Dr. Rodriguez Diagnosis: Generalized weakness Additional Pertinent Hx: Admitted to [facility] on 12/16/22 due to generalized weakness. [...] Cane Prior Function Receives Help From: Family, child attendant Ambulation Assistance: Independent (with wJossywalker) Transfer [...] x5 minutes with SBA and no LOB. Secretary Bookkeeper Goals Time Frame for Secretary Bookkeeper Goals : STG=LTG Plan Times Per Week: [...] with: Alone Type of Home: Apartment Primary Laboratory Immunologist: Self Patient Support Systems include: Children, Family [...] Plan for transportation at discharge: Financial Payor: [facility] MED[facility]ARE / Plan: [employer] DUAL COMPLETE / Product Type: *No Product type* / Does insurance require precert for SNF: Yes Potential assistance Purchasing Medications: No Hcqf-xu-Oojf request: [id number] - [place], [place] - [address] [place] [address] - F [phone] [place], [place] [address] [id number] - [place], [place] - [address] [facility] [phone] - F [phone] [place] [id number] Notes: Factors facilitating achievement of predicted outcomes: [...] [R53.1] IF APPLICABLE: The Patient and/or patient licensing representative Aleena and her family were provided with a choice of provider and agrees with the discharge plan. 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 Yes Osbaldo iWlliam RN Case Management Department Physical Therapy [facility] Date: 12/18/2022 Physical Therapy Daily Note [...] the bathroom. Walking boot is donned per INSTRUCTIONAL SERVICES SPECIALIST. Sit to stand from chair is min/CGA. [...] Time Frame for Short Term Goals: NA Secretary Bookkeeper Goals Time Frame for Intermediate Goals : 7 days (12/22/2022) Intermediate Goal 1: Patient to transfer sit to stand modified independent Secretary Bookkeeper Goal 2: Patient to transfer supine to sit and sit to supine modified independent Intermediate Goal 3: Patient to ambulate 75 ft x2 with w.walker and protective boot R Le modified independent Intermediate Goal 4: Patient to have good dynamic standing balance to complete ADLS safely Мария [facility] Therapy License Number: INSTRUCTIONAL SERVICES SPECIALIST Date: 12/18/2022 Hospitalist Progress Note 12/18/2022 8:03 [...] -s/p surgical repair by Dr. Mcguire at [facility], continue PT and OT, Percocet as needed [...] the patient's current medications (including all prescriptions, kaxw-wsx-tcrtztz products, herbals, cannabis / cannabidiol products, vitamin [...] arrangement) [x] Personal Phone Number Located on [facility] Board [x] Swing Bed Team Meetings Family [...] do not have a copy on file, director client services notified and will follow up. [] Pt [...] is it to you to participate in mormonism services or practices? Activity Care Plan: Will participate in activity programs of choice daily with no decline throughout SBU stay. CHANNEL DIRECTOR S SIGNATURE: Amanda Marinelli Date: 12/21/2022 Comprehensive Nutrition Assessment Type and Reason for Visit: Initial, Positive Nutrition Screen Nutrition Recommendations/Plan: Encourage oral intakes Encourage use of Ensure (prefers strawberry) Malnutrition Assessment: Malnutrition Status: At risk for malnutrition (Comment) (12/18/22 1225) Context: Acute Illness Findings of the 6 clinical characteristics of malnutrition: Energy Intake: Mild decrease in energy intake (Comment) (acutely) Weight Loss: No significant weight loss Body Fat Loss: No significant body fat loss Muscle Mass Loss: No significant muscle mass loss Fluid Accumulation: Mild Extremities Ad Compositor Strength: Not Performed Nutrition Assessment: Increased nutrient [...] Anthropometric Measures: Height: 5' 6 (167.6 cm) [place] Body Weight (IBW): 130 lbs (59 kg) [...] Used for Energy Requirements: Current Energy (kcal/day): 5458-4692 (11-15) Weight Used for Protein Requirements: [place] Protein (g/day): 63-73 (1.2-1.4) Method Used for [...] Data, Weight Discharge Planning: Sushant Cain RD, LD Contact: [phone] Patient continues to be monitored closely though [...] was ok'd with registration and the nursing script supervisor. Educated the patient on patient safety and emphasized that we are here to help. Moving patient to a room closer to the nurses station for closer monitoring and the benefit of a hercules bed. Patient is agreeable with switching rooms from 270 to 258. This information with be shared with the Attending provider in the morning. Physical Therapy [facility] Date: 12/17/2022 Physical Therapy Daily Note [...] assist. Patient reaches for grab bar near [facility] prior to being safely in front of [facility]. Independet with cee care. Standing balance to [...] Goals: NA Intermediate Goals Time Frame for Secretary Bookkeeper Goals : 7 days (12/22/2022) Secretary Bookkeeper Goal 1: Patient to transfer sit to stand modified independent Intermediate Goal 2: Patient to transfer supine to sit and sit to supine modified independent Intermediate Goal 3: Patient to ambulate 75 ft x2 with w.walker and protective boot R Le modified independent Intermediate Goal 4: Patient to have good dynamic standing balance to complete ADLS safely Мария [facility] Therapy License Number: INSTRUCTIONAL SERVICES SPECIALIST Date: 12/17/2022 Patient reports no longer having upset stomach, nausea, or diarrhea. Previous nurse (MAUREEN Khan) reports patient c/o nausea and not feeling well after 1800. Patient puts public relations representative light to use the restroom. Patient states [...] elevated. Lunch aserved. Will continue to monitor. [facility] Physical Therapy Evaluation Date: 12/16/2022 Patient Name: Aleena Gill : 1935 (87 y.o.) Gender: female Referring Practitioner: Dr. Rodriguez Diagnosis: Right ankle Additional Pertinent Hx: Patient had fall at home and fx R ankle.Had ankle surgery yesterday at [facility] and arrived in swingbed late last night. [...] Independent (with w.walker) Transfer Assistance: Independent Active Bulk Tank Car Unloader: Yes Additional Comments: Daughter lives nearby and [...] Goals: NA Intermediate Goals Time Frame for Secretary Bookkeeper Goals : 7 days Secretary Bookkeeper Goal 1: Patient to transfer sit to stand modified independent Intermediate Goal 2: Patient to transfer supine to sit and sit to supine modified independent Secretary Bookkeeper Goal 3: Patient to ambulate 75 ft x2 with w.walker and protective boot R Le modified independent Secretary Bookkeeper Goal 4: Patient to have good dynamic standing balance to complete ADLS safely PT Individual Minutes Time In: 1034 Time Out: 1102 Minutes: 28 Kay Alcala, PT, PT 12/16/2022 Family member brings in patient's home supplied Humira. Med is in original box with script label adhered to box. Per script supervisor to administer as patient is day late on receiving dose which she takes every two weeks. 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 Regular low fat/low cholestenol, high fiber [...] it in. documented in this encounter BON [employer]och[employer] Work Phone: 12-26-2022 Hospital Discharge instructions Андрей [...] with Efrain Esparza MD after [facility] from [facility]. Dafne Avalos RN - 12/22/2022 1:23 PM EST Continuity of Care Form Patient Name: Aleena Gill : 1935 Admit date: 12/16/2022 Discharge date: 12/26/2022 Code Status Order: DNR-CCA Advance Directives: Admitting Physician: Андрей Rodriguez MD PCP: Efrain Esparza MD Discharging Nurse: Dafne REDDY Discharging Hospital Unit/Room#: 0258/0258-01 Discharging Unit Emergency Contact: Extended Emergency Contact Information Primary Emergency Contact: Merari Campbell [facility] Mobile Relation: Child Secondary Emergency Contact: STANTON HUERTA Mobile Relation: Child Preferred language: Zimbabwean Braille Translator needed? No Past Surgical History: Past Surgical [...] Adult body mass index 40 and over [id number] Aortic valve stenosis I35.0 Benign hypertension I10 [...] Assisted Dressing Assisted Toileting Assisted Feeding Independent Netbackup Administrator Independent Med Delivery whole Wound Care Documentation [...] Readmission: 12 Discharging to Facility/ Agency Name: [facility] Address: [address] [place] [address] Dialysis Facility (if applicable) Name: Address: Dialysis Schedule: Phone: Fax: Tag Writer/Information Engineer signature: PHYSICIAN SECTION Prognosis: Good Condition at Discharge: Stable Rehab Potential (if transferring to Rehab): Good Recommended Labs or Other Treatments After Discharge: Physician Certification: I certify the above information and transfer of Aleena Gill is necessary for the continuing treatment of the diagnosis listed and that she requires Long Term Facility for greater 30 days. Update Admission H&P: No change in H&P PHYSICIAN SIGNATURE: The following attachments cannot be sent through Care Everywhere.Fatigue (Zimbabwean)Weakness: Generalized (Zimbabwean)Muscle Conditioning: Exercises (Zimbabwean)documented in this encounter BLAKE CORTEZ [employer] Work Phone: 12-15-2022 Hospital Discharge instructions Patient Education 12/15/2022 15:05:43 Ankle Fracture, Emtm-vg-Fjsa Ankle Fracture The ankle joint is made [...] crutches as told by your doctor. Take dytx-pej-vjjtvvx and prescription medicines only as told by [...] 09/09/2010 Document Revised: 10/25/2018 Document Reviewed: 12/17/2017 [email or web address] Patient Education 2020 [email or web address] Follow Up Care 12/12/2022 19:02:47 With:Efrain ESPARZA Address: [address] [place] [address]- Business (1) When: Unknown Comments:Call for followup appointment when d/c from SNF With:Keena Mcguire Address: [address] [place] [address] Business (1) When:5 to 7 days [facility] 12-15-2022 Evaluation + Plan note Extrac jorge from: Title:Discharge Note Author:JEISON LOFTONP-Ronel TREVINO Date:12/15/22 Hemodynamically stable condi tion Discharge To, Anticipated II - Long Term Unit Discharge Status: Improved Discharge Instructions Given: [...] Daily With When Contact Information Efrain ESPARZA [facility] [address] [facility] [place] [address]- Business (1) Additional Instructions: Call for followup appointment when d/c from [facility] Keena Mcguire Within 5 to 7 days [address] [place] [address]- Business (1) Additional Instructions: Ankle Fracture, Xzaa-mi-Pcky Extracted from: Title:APSO Note Author:JEISON BOSSMAN-Vero TREVINO ate:12/15/22 1. Fracture of ankle (S82.89 9A: Other fracture of unspecified lower leg, initial encounter for closed fracture) 12/07/2022: R ankle fracture secondary to mechanical fall at home -12/07: Right ankle x-ray (at [place]) acute closed distal fibular fracture -12/09: Patient [...] deep vein thrombosis (DVT) prophylaxis (Z79.899: Other half-way (current) drug therapy) -Lovenox Orders: XR Ankle 3+ Views Right XR Foot 3+ Views Right -Plan discussed w/ patient, nursing staff and CRM. -Disposition: Patient is awaiting pre-CERT This report was transcribed using voice recognition software. Every effort was made to ensure accuracy, however, inadvertently computerized broadcast meteorologist mistakes may be present. Extracted from: Title:APSO Note Author:Roseann PADILLA Date:12/13/22 PLAN: 1. Fracture of ankle (S82.899A: Other fracture of unspecified lower leg, initial encounter for closed fracture) Prior ankle fracture on 12/07/2022 after a mechanical fall at home patient slid out of bed again on 12/09/2022 and squad with 3 artillery maintenance supervisor had to assist patient to get off the floor. Patient has progressively weakened since ankle fracture. Per right ankle x-ray at [place] showed acute closed distal fibular fracture. Was [...] care Influenza A&B Ag Rapid COVID Antigen ([facility]) Saline Lock Insert Troponin 0 Hr. UA With Cult Reflex XR Chest Single View Future Appointments Appointment Date:01/15/2023 03:00:00 PM Scheduled Provider:Efrain ESPARZA MD Location:[facility] Appointment Type: Open Diagnostic Tests Pending * Electrolyte Panel 12/16/22 [facility]01[facility]2023 Hospital Discharge instructions* Discharge Instr - CATIA* [...] Contact Information Primary Emergency Contact: Merari Campbell [facility] Mobile Relation: Child Secondary Emergency Contact: DEANNA STANTON Mobile Relation: Child Preferred language: Zimbabwean Braille Translator needed? 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 Last documented pain score (0-10 scale): Last Weight: Wt Readings from Last 1 Encounters: 10/31/22 250 lb (113.4 kg) Mental Status: {IP PT MENTAL STATUS:} IV Access: { CATIA IV ACCESS:792398149} Nursing Mobility/ADLs: Walking {CHP DME ADLs:820797492} Transfer {CHP DME ADLs:712526088} Bathing {CHP DME ADLs:658676817} Dressing {CHP DME ADLs:329267844} Toileting {CHP DME ADLs:876852591} Feeding {CHP DME ADLs:093816660} Netbackup Administrator {CHP DME ADLs:820994639} Med Delivery { CATIA MED Delivery:720070591} Wound Care Documentation and Therapy: Elimination: Continence: Bowel: {YES / NO:} Bladder: {YES / NO:} Urinary Catheter: {Urinary Catheter:173443798} Colostomy/Ileostomy/Ileal Conduit: {YES / NO:} Date of Last BM: No intake or output data in the 24 hours ending 12/07/22 1832 No intake/output data recorded. Safety Concerns: { CATIA Safety Concerns:153066563} Impairments/Disabilities: { CATIA Impairments/Disabilities:891999236} Nutrition Therapy: Current Nutrition Therapy: { CATIA Diet List:117282955} Routes of Feeding: {[facility] DME Other Feedings:031750796} Liquids: {[facility] liquid thickness:94856} Daily Fluid Restriction: {CHP DME Yes amt example:479158927} Last Modified Barium Swallow with Video (Video Swallowing Test): {Done Not Done Date:} Treatments at the Time of Hospital Discharge: Respiratory Treatments: Oxygen Therapy: {Therapy; copd oxygen:43571} Ventilator: {[facility] Vent List:716010621} Rehab Therapies: {THERAPEUTIC INTERVENTION:2212374877} Weight Bearing Status/Restrictions: {[facility] Weight Bearin} Other Medical Equipment (for information only, NOT a DME order): {EQUIPMENT:855873472} Other Treatments: Patient's personal belongings (please select all that are sent with patient): {[facility] DME Belongings:448292694} RN SIGNATURE: {Esignature:197094521} CASE MANAGEMENT/SOCIAL WORK SECTION Inpatient Status Date: Readmission Risk Assessment Score: Readmission Risk Risk of Unplanned Readmission: 0 Discharging to Facility/ Agency Name: Address: Phone: Fax: Dialysis Facility (if applicable) Name: Address: Dialysis Schedule: Phone: Fax: Tag Writer/Information Engineer signature: {Esignature:330552760} PHYSICIAN SECTION Prognosis: {Prognosis:2957234022} Condition at Discharge: { Patient Condition:594789166} Rehab Potential (if transferring to Rehab): {Prognosis:9345548084} Recommended Labs or Other Treatments After Discharge: Physician Certification: I certify the above information and transfer of Aleena Gill is necessary for the continuing treatment of the diagnosis listed and that she requires {Admit to Appropriate Level of Care:23109} for {GREATER/LESS:902381361} 30 days. Update Admission H&P: {CHP DME Changes in HandP:370498752} PHYSICIAN SIGNATURE: {Esignature:803821490} * Attachments The following attachments cannot be sent through Care Everywhere. * Ankle Fracture (Zimbabwean) documented in this encounterBON DIEGO [employer] Work Phone: 1(428) 540-463508-05-2022 Hospital Discharge instructions Patient Education 06/30/2022 08:33:46 Hypertension, Adult, Hxne-vo-Lcab Hypertension, Adult Hypertension is another name for [...] your doctor. This is important. Medicines Take vaqg-nsq-wlqfgvw and prescription medicines only as told by [...] 04/30/2009 Document Revised: 07/23/2019 Document Reviewed: 07/23/2019 [email or web address] Patient Education 2020 [employer]. Follow Up Care 05/04/2022 08:53:43 With:ISAIAS BECERRA, Efrain Chambers, [facility] Address: [address] [place] [address]- When:Within 3 Month(s) [facility] 03-01-2022 Evaluation + Plan note Future Scheduled Tests Laboratory* HgbA1c 01/24/22 * CBC w/ Auto Diff 01/24/22 * Comprehensive Metabolic Panel 01/24/22 * Lipid Panel 01/24/22 [facility] 12-13-2021 History of Present illness Narrative* Berkley Lisset Garza, INSTRUCTIONAL SERVICES SPECIALIST - 11/07/2021 10:30 AM EST Images from the original note were not included. [facility] Outpatient Physical Therapy Daily Note Date: [...] falls. Intermediate Goals - Time Frame for nursing home goals : 16 visits(POC exp 12/12/21) nursing home goal 1: Pt to score > 34/80 on LEFS to improve pt ADLs. nursing home goal 2: Pt to maintain Narrow OBED 10sec 2:3 trials without UEs to improve safety in shower. nursing home goal 3: Pt to have 4/5 hip ABD strength to improve standing mirela. nursing home goal 4: Pt to report no LOB/Falls x2 consecutive weeks to improve safety in the home. Post Treatment Pain: 03/05 Time In: 1032 Time Out: 1108 Timed Code Treatment Minutes: 36 Minutes Total Treatment Time: 36 Minutes Berkley Garza, INSTRUCTIONAL SERVICES SPECIALIST Date: 11/07/2021 documented in this [facility] [employer] Work Phone: 1(171) 622-835211-07-2021 Note No acute thoracic spine findings. If pain persists, further evaluation with CT scan or MRI could be considered. [facility] RIS [id number] [facility] Vascular Lower Extremities DVT Study Procedure Patient Name BRIDGET Date of Study 06/13/2021 ALEENA Dixon Date of 1935 Gender Female Age 85 year(s) Race RoomNumber Corporate ID # [id number] Patient MR # [id number] Glass Frame Fitter RT Veronica Interpreting Physician Heri Godoy Referring [...] v. Signature ---- Electronically signed by RT Veronica(Hoang)(Zack)(FAHEEM)([facility])(Glass Frame Fitter) on 06/13/2021 01:40 PM Left Impression: CFV, [...] !Yes !None ! + + + + +[employer] Phone: 1(908) 211-513107-17-2021 Hospital Discharge instructions* Instructions* Xena Andrews MD - 06/11/2021 Alternate ibuprofen with Tylenol 500 to 650 mg every 4 hours for pain control. * Attachments The following attachments cannot be sent through Care Everywhere. * Hip Pain (Zimbabwean) * Hypertension: General Info (Zimbabwean) * Arthritis (Zimbabwean) documented in this [email or web address] Work Phone: evaluation + Plan note Future Appointments Appointment Date:06/30/2022 08:00:00 AM Scheduled Provider:Efrain ESPARZA MD Location:[facility] Appointment Type: Open Future Scheduled Tests Laboratory* HgbA1c 01/24/22 * CBC w/ Auto Diff 01/24/22 * Comprehensive Metabolic Panel 3/1/22 * [facility]ments Appointment Date:06/30/2022 08:00:00 AM Scheduled Provider:Efrain ESPARZA MD Location:[facility] Future Appointments Appointment Date:10/06/2022 10:00:00 AM Scheduled Provider:Efrain ESPARZA MD Location:[facility] Appointment Type: Open Future Scheduled Tests Laboratory* HgbA1c 06/30/22 * CBC w/ Auto Diff 06/30/22 * Comprehensive Metabolic Panel 06/30/22 * Lipid Panel 06/30/22 * Thyroid Stimulating Hormone 06/30/22 * Free T4 06/30/22 [facility] Evaluation + Plan note Future Appointments Appointment Date:10/06/2022 10:00:00 AM Scheduled Provider:Efrain ESPARZA MD [facility] Pain in left hip- Primary Pain in joint, pelvic region and thigh Pain of left calf Essential hypertension Unspecified essential hypertension Osteoarthritis of left hip, unspecified osteoarthritis type documented in this encounter [employer] Phone: [email or web address] note* Diagnosis Paresthesia Disturbance of skin sensation documented in this encounter [employer] Phone: evalhsqeox note* Diagnosis Pain of left calf documented in this encounter [employer] Phone: evalfnqkyo note* Diagnosis Mitral valve insufficiency, unspecified etiology documented in this encounter [employer] Phone: evaljufrys note* Diagnosis Atrial fibrillation, unspecified type (HCC) Coronary artery disease involving [place] coronary artery of [place] heart without angina pectoris Essential hypertension Unspecified essential hypertension Hyperlipidemia, unspecified hyperlipidemia type Ischemic cardiomyopathy Other specified forms of chronic ischemic heart disease Vitamin D deficiency disease Unspecified vitamin D deficiency documented in this encounter [employer] Phone: evalvspdkx note* Diagnosis Atrial fibrillation, unspecified type (HCC) Coronary artery disease involving [place] coronary artery of [place] heart without angina pectoris Essential hypertension Unspecified essential hypertension Hyperlipidemia, unspecified hyperlipidemia type Ischemic cardiomyopathy Other specified forms of chronic ischemic heart disease Vitamin D deficiency disease Unspecified vitamin D deficiency documented in this encounter [employer] Phone: [email or web address] note* Diagnosis Atrial fibrillation, unspecified type (HCC) Coronary artery disease involving [place] coronary artery of [place] heart without angina pectoris Essential hypertension Unspecified essential hypertension Hyperlipidemia, unspecified hyperlipidemia type Ischemic cardiomyopathy Other specified forms of chronic ischemic heart disease Vitamin D deficiency disease Unspecified vitamin D deficiency documented in this encounter [employer] Phone: evaluation note* Diagnosis Contusion of ribs, right, initial encounter- Primary Contusion of thoracic spine Contusion of lower back, initial encounter documented in this encounter [employer] Phone: evaluation note* Diagnosis Pain in both wrists Pain in joint, forearm documented in this encounter [employer] Phone: [email or web address] note* Diagnosis Aortic valve stenosis, etiology of cardiac valve disease unspecified documented in this encounter [employer] Phone: evaluation note* Diagnosis Atrial fibrillation, unspecified type (HCC) Essential hypertension Unspecified essential hypertension Coronary artery disease involving [place] coronary artery of [place] heart without angina pectoris Hyperlipidemia, unspecified hyperlipidemia type Ischemic cardiomyopathy Other specified forms of chronic ischemic heart disease Vitamin D deficiency disease Unspecified vitamin D deficiency Mitral valve insufficiency, unspecified etiology documented in this encounter [employer] Phone: evaluation note* Diagnosis Atrial fibrillation, unspecified type (HCC) Essential hypertension Unspecified essential hypertension Coronary artery disease involving [place] coronary artery of [place] heart without angina pectoris Hyperlipidemia, unspecified hyperlipidemia type Ischemic cardiomyopathy Other specified forms of chronic ischemic heart disease Vitamin D deficiency disease Unspecified vitamin D deficiency Mitral valve insufficiency, unspecified etiology documented in this encounter [employer] Phone: evaluation note* Diagnosis Closed fracture of distal end of right fibula, unspecified fracture morphology, initial encounter- Primary documented in this encounter [employer] Phone: evaluation note* Diagnosis Generalized weakness- Primary Other malaise and fatigue Closed fracture of right ankle, initial encounter documented in this encounter [facility] Work Phone: evaluation note* Diagnosis Bilateral carpal tunnel syndrome- Primary Carpal tunnel syndrome Left hip pain Pain in joint, pelvic region and thigh [facility] N[facility]ative No data available for this section [facility] Discharge instructions* Attachments The following attachments cannot be sent through Care Everywhere. * Rib Contusion (Zimbabwean) * Low Back Contusion ([place]imbabwean) [facility] [employer] Work Phone: Hospital Discharge instructions No data available for this section [facility] Progress note No data available for this section [facility] Assessments Diagnosis Chronic systolic congestive heart failure (HCC) Chronic systolic heart failure Dyslipidemia Other and unspecified hyperlipidemia Vitamin D deficiency disease Unspecified vitamin D deficiency Hypertension, unspecified type Diagnosis Atrial fibrillation, unspecified type (HCC) Coronary artery disease involving [place] coronary artery of [place] heart without angina pectoris Essential hypertension Unspecified essential hypertension Diagnosis Ischemic cardiomyopathy Other specified forms of chronic ischemic heart disease Diagnosis Atrial fibrillation, unspecified type (HCC) Coronary artery disease involving [place] coronary artery of [place] heart without angina pectoris Essential hypertension Unspecified [...] unspecified type (HCC) Coronary artery disease involving [place] coronary artery of [place] heart without angina pectoris Essential hypertension Unspecified essential hypertension Diagnosis Injury of head, initial encounter- Primary Advance Directives No Advanced Directives Records FoundDocuments on File Type Date Recorded 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 Advance Directives and Living Will Power of Assistant Professor Of Economics Documents on File Type Date Recorded 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 ACP-Advance Directive ACP-Power of Assistant Professor Of Economics Documents on File Type Date Recorded 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 ACP-Advance Directive ACP-Power of Assistant Professor Of Economics Latest Code Status on File Code Status [...] unspecified type (HCC) Coronary artery disease involving [place] coronary artery of [place] heart without angina pectoris Essential hypertension Procedures EKG 12 Lead Emiliano Deng MD [address] [place] [id number] Status Reason Specialty Diagnoses / Procedures Re ferred By Contact Referred To Contact Closed Cardiology Diagnoses Ischemic cardiomyopathy Procedures ECHO Complete 2D W Doppler W Color HC ECHO NO CONTRAST WITH DOP/COLR Emiliano Deng MD [address] [place] [address] Status Reason Specialty Diagnoses / Procedures Referre d By Contact Referred To Contact Closed Radiology Diagnoses Left leg weakness Lumbosacral radiculopathy Has numbness Procedures MRI lumbar spine without contrast Gaston Parekh M, DO [address] [place] [address] Status Reason Specialty Diagnoses / Procedures Referred By Contact Referred To Contact Pending Review Vascular Lab Diagnoses Bruit Procedures VL DUP CAROTID BILATERAL Emiliano Deng MD [address] [place] [address] [facility] [address] [place] [address] Status Reason Specialty Diagnoses / Procedures Referre d By Contact Referred To Contact Open Radiology Diagnoses Pain of left calf Procedures VL DUP LOWER EXTREMITY VENOUS LEFT Strus, Xena Porter MD [address] [place] [address] Status Reason Specialty Diagnoses / Procedures Referred By Contact Referred To Contact Pending Review Radiology Diagnoses Pain of left calf Procedures VL DUP LOWER EXTREMITY VENOUS LEFT Strus, Xena Porter MD [address] [place] [address] Status Reason Specialty Diagnoses / Procedures Referre d By Contact Referred To Contact Closed Cardiology Diagnoses Mitral valve insufficiency, unspecified etiology Procedures ECHO Complete 2D W Doppler W Color Emiliano Deng MD [address] [place] [address] Status Reason Specialty Diagnoses / Procedures Re ferred By Contact Referred To Contact Pending Review Cardiology Diagnoses Atrial fibrillation, unspecified type (HCC) Coronary artery disease involving [place] coronary artery of [place] heart without angina pectoris Essential hypertension Hyperlipidemia, unspecified hyperlipidemia type Ischemic cardiomyopathy Vitamin D deficiency disease Procedures EKG 12 Lead Emiliano Deng MD [address] [place] [id number] Specialty Diagnoses / Procedures Referred By Daphne t Referred To Contact Cardiology Diagnoses Aortic valve stenosis, etiology of cardiac valve disease unspecified Procedures ECHO Complete 2D W Doppler W Color Emiliano Deng MD [address] [place] [address] Referral ID Status Reason Start Date Expiration Date V isits Requested Visits Authorized [id number] Pending Review 08/20/2022 08/20/2023 1 1 Specialty Diagnoses / Procedures Referred By Daphne rey Referred To Contact Orthopaedic Surgery Diagnoses Bilateral carpal tunnel syndrome Procedures M Inj/Asp: bilateral radiocarpal Keena Mcguire, DO [address] [place] [address] Referral ID Status Reason Start Date Expiration Date V isits Requested Visits Authorized [id number] Pending Review 01/03/2024 07/01/2024 1 1 Discharge Instructions * Attachments The following attachments cannot be sent through Care Everywhere. * Head Injury: Closed: General Info (Zimbabwean) documented in this encounter Summary Purpose Family [...] NO CONTRAST WITH DOP/COLR Emiliano Deng MD [address] [place] [address] Status Reason Specialty Diagnoses / Procedures Referre d By Contact Referred To Contact Closed Radiology Diagnoses Left leg weakness Lumbosacral radiculopathy Has numbness Procedures MRI lumbar spine without contrast Gaston Parekh, DO [address] [place] [id number] Status Reason Specialty Diagnoses / Procedures Referred By Contact Referred To Contact Pending Review Vascular Lab Diagnoses Bruit Procedures VL DUP CAROTID BILATERAL Emiliano Deng MD [address] [place] [address] [facility] [address] [place] [address] Reason Comments Fall pt states she was [...] LOWER EXTREMITY VENOUS LEFT Xena Andrews MD [address] [place] [address] Status Reason Specialty Diagnoses / Procedures Referre d By Contact Referred To Contact Closed Cardiology Diagnoses Mitral valve insufficiency, unspecified etiology Procedures ECHO Complete 2D W Doppler W Color Emiliano Deng MD [address] [place] [address] Reason Comments Fall Patient fell into si [...] Procedures physical therapy Efrain Esparza MD [address] [place] [address] Shanita Henry PT Referral ID Status Reason Start Date Expiration Date Visits Re quested Visits Authorized [id number] Open 10/17/2021 10/17/2022 20 20 Specialty Diagnoses / Procedures Referred By Daphne t Referred To Contact Cardiology Diagnoses Atrial fibrillation, unspecified type (HCC) Coronary artery disease involving [place] coronary artery of [place] heart without angina pectoris Essential hypertension Hyperlipidemia, unspecified hyperlipidemia type Ischemic cardiomyopathy Vitamin D deficiency disease Procedures EKG 12 Lead Emiliano Deng MD [address] [place] [address] Referral ID Status Reason Start Date Expiration Date V isits Requested Visits Authorized [id number] Pending Review 09/20/2021 09/20/2022 1 1 Reason [...] weakness Back, MD Андр[address] [place] [address] [facility] [address] [place] [address] Referral ID Status Reason Start Date Expiration Date Visits Re quested Visits Authorized [id number] 1 1 Reason Comments Pain (XR L [...] 5,000 Units Labeling may look different. 25 lng=6212 Units. Please double check dosages., 5,000 Units, Oral, DAILY, First dose on 12/16/22 at 0900, Until Discontinued, Labeling may look different. 25 ana=2247 Units. Please double check dosages. 0811 (Given [...] Zhu, RN) 0549 (Given - Provider: Osbaldo Zhu, RN)2222 (Given - Provider: Judy Guthrie, MAUREEN) 0848 (Given - Provider: Dafne Avalos, MAUREEN) senna (SENOKOT) tablet 17.2 mg 17.2 mg (2 tablet), Oral, 2 TIMES DAILY PRN, Starting on 12/16/22 at 0038, Until Discontinued, Constipation Care Teams (unrecognized sec tion and content) Box Maker Relationship Specialty Start Date End Date Efrain Esparza MD [address] [facility] [place] [address] PCP - General Internal Medicine 01/10/18 Box Maker Relationship Specialty Start Date End Date Efrain Esparza MD [address] [facility] [place] [address] PCP - General Internal Medicine 01/10/18 Box Maker Relationship Specialty Start Date End Date Efrain Esparza MD [address] [place] [facility] [place] [address] PCP - General Internal Medicine 01/10/18 Box Maker Relationship Specialty Start Date End Date Efrain Esparza MD [address] [place] [facility] [place] [address] PCP - General Internal Medicine 01/10/18 Box Maker Relationship Specialty Start Date End Date Efrain Esparza MD [address] [facility] [place] [address] PCP - General Internal Medicine 01/10/18 Box Maker Relationship Specialty Start Date End Date Efrain Esparza MD [address] [place] [address] PCP - General Internal Medicine 01/10/18 Box Maker Relationship Specialty Start Date End Date Efrain Esparza MD [address] [place] [address] PCP - General Internal Medicine 01/10/18 Box Maker Relationship Specialty Start Date End Date Efrain Esparza MD [address] [place] [address] PCP - General Internal Medicine 01/10/18 Box Maker Relationship Specialty Start Date End Date Efrain Esparza MD [address] [place] [address] PCP - General Internal Medicine 01/10/18 Box Maker Relationship Specialty Start Date End Date Efrain Esparza MD [address] [place] [address] PCP - General Internal Medicine 01/10/18 Box Maker Relationship Specialty Start Date End Date Efrain Esparza MD [address] [place] [address] PCP - General Internal Medicine 05/21/23 INFORMATION SOURCE (unrecogn ized section and content) DATE CREATED AUTHOR 03/11/2023 [facility] DATE CREATED AUTHOR AUTHOR'S ORGANIZ ATION 12/06/2023 Maranda Zhang spigamaliel DATE CREATED AUTHOR AUTHOR'S ORGANIZ ATION 01/04/2024 [facility] DATE CREATED AUTHOR AUTHOR'S ORGANIZ ATION 01/09/2024 [facility] FOR RECORDS PERTAINING TO PATIENTS WHO ARE [...] BE BASED ON THE PRIMARY CLINICAL RECORDS. [facility] [employer] [facility]. provides no warranty or guarantee of the accuracy or completeness of information in this document.
[2024-02-06 08:18] LABS: Bilirubin Urine NEGATIVE (NEGATIVE); Blood Urine TRACE-I (NEGATIVE); Clarity Urine SL CLOUDY (CLEAR); Color Urine YELLOW (YELLOW); Glucose Urine UA NEGATIVE (NEGATIVE); Ketones Urine NEGATIVE (NEGATIVE); Leukocyte Esterase Urine LARGE (NEGATIVE); Nitrite Urine POSITIVE (NEGATIVE); Protein Urine TRACE mg/dL (NEG/TRACE); pH Urine 5.5 (5.0-9.0)
[2024-02-06 08:23] LABS: Urine Microscopic Indicated YES
[2024-02-06 08:38] LABS: Bacteria Urine LARGE #/HPF (NONE SEEN); Cast Seen? NONE SEEN #/LPF (NONE SEEN); Crystals Seen? None Seen #/HPF (None Seen); Mucus Urine NONE SEEN (NONE SEEN); Squamous Epithelial Cell Urine FEW #/LPF (NONE/RARE); WBC Urine 75-100 #/HPF (NONE SEEN)
== END 2024-02-05 07:16 | disposition home or self-care (01) ==
LOC: LAB 07:15
PROVIDERS: PCP Family Medicine; Visit Provider Family Medicine
DX: Z51.81 Encounter for therapeutic drug level monitoring (principal)
CPT/HCPCS: 81001

== ENCOUNTER 2024-02-06 01:43 | Outpatient (REF) | payer MEDICARE, MEDICAID, SELFPAY ==
--- OUTSIDE RECORDS SUMMARY | 2024-02-06 01:49 | XMS_ITS | CCD ---
Author Name Unknown Address [address] [place] [address] Organization [facility] Care Team Providers Care Transportation Program Director Name Role Phone Efrain Esparza Primary Care Provider Efrain ESPARZA Primary Care Physician [phone] Isaias BECERRA, Efrain Gillespie Primary Care Provider [phone] Efrain Esparza MD Primary Care Provider Isaias BECERRA, Efrain Gillespie Primary Care Provider Merle Braker Unavailable Unavailable BETSY, DR ROLLE Admitting Unavailable [...] Care Unavailable BETSY, DR ROLLE Consulting Unavailable LAKIA REZA Attending Unavailable EFRAIN ESPARZA [...] Referring Unavailable EFRAIN ESPARZA Primary Care Unavailable KEENA MCGUIRE Referring Unavailable KEENA MCGUIRE Attending Unavailable Efrain Esparza MD Primary Care Provider Efrain ESPARZA Attending Unavailable Medications Current Medications Medication Drug Class(es) [...] Date: 12/15/22 Stop Date: 12/18/22 Status: Ordered albuterol 0.833 mg/ml / ipratropium bromide 0.167 mg/ml inhalation solution (2 sources) Anticholinergic, beta2-Adrenergic Agonist Start: 02-28-2023 ipratropium-albuterol (Duo-Neb) 0.5-2.5 mg/3 mL nebulizer solution aluminum hydroxide 40 mg/ml / magnesium hydroxide 40 mg/ml / simethicone 4 mg/ml oral suspension (1 source) Start: 12-22-2022 aluminum & magnesium hydroxide-simethicone (MAALOX) 200-200-20 MG/5ML suspension 30 mL PreserVision (7 sources) Vitamin C Start: 05-31-2019 PreserVision See Instructions, Refill(s) 0, 2 per day Start Date: 05/31/19 Status: Ordered aspirin 81 mg chewable tablet (20 sources) Platelet Aggregation Inhibitor, Nonsteroidal Anti-inflammatory Drug Start: 12-16-2022 aspirin chewable tablet 81 mg Start: 12-15-2022 take 1 tablet [...] tablet (20 sources) HMG-CoA Reductase Inhibitor Start: 12-27-2023 take 1 tablet by mouth in the morning atorvastatin (Lipitor) 20 MG tablet Take 20 mg by mouth in the morning. 0 12/27/2023 Active Start: 10-31-2021 atorvastatin ( LIPITOR) tablet 20 mg bisacodyl 10 mg rectal suppository (2 sources) Stimulant Laxative take 10 mg rectal route in the morning bisacodyl (Dulcolax) 10 MG suppository Insert 10 mg into the rectum in the morning. 0 Active bumetanide 1 mg oral tablet (2 sources) Loop Diuretic Start: 3 bumetanide (Bumex) 1 MG tablet cholecalciferol 0.025 mg oral tablet (20 sources) Vitamin D Start: 3 Vitamin D (CHOLECALCIFEROL) tablet 5,000 Units take 1 tablet by mouth in the mo rning cholecalciferol (D3-5) 5,000 Units tablet Take 5,000 Units by mouth in the morning. 0 Active take 1 tablet by mouth once jeni y Cholecalciferol (VITAMIN D3) 125 MCG (5000 UT) TABS Take 5,000 Units by mouth daily 0 Active Cranberry preparation (9 sources) Non-Standardized Food Allergenic Extract, Non-Standardized Plant Allergenic Extract Start: 01-15-2015 take 1 tablet by mouth once daily Cranberry oral tablet 1 tab, Oral, Daily, Refill(s) 0, Prophylaxis Start Date: 01/15/15 Status: Ordered Cranberry 400 MG capsule every 8 (eight) hours. 0 Active dextromethorphan hydrobromide 2 mg/ml / guaiFENesin 20 mg/ml oral suspension (2 sources) Uncompetitive J-nlpfqv-D-aspartate Receptor Antagonist, Sigma-1 Agonist Dextromethorphan-gua iFENesin 10-100 MG/5ML liquid Take 5 mL by mouth 0 Active docusate sodium 100 mg oral capsule (2 sources) take 1 capsule by mouth in the morning Docusate Sodium (DSS) 100 MG capsule Take 1 capsule by mouth in the morning. 0 Active doxepin hydrochloride 10 mg oral capsule (14 sources) Tricyclic Antidepressant Sta rt: 1 End : 3 take 1 capsule by mouth once daily doxepin (SINEQUAN) 10 MG capsule Take 10 mg by mouth nightly 0 09/15/2021 12/26/2022 Discontinued (Stop Taking at Discharge) DULoxetine 60 mg delayed release oral capsule (20 sources) Serotonin and Norepinephrine Reuptake Inhibitor Sta rt: 4 take 1 capsule by mouth in the morning DULoxetine (Cymbalta) [address] capsule Take 60 mg by mouth in the morning. 0 12/28/2023 Active Start: 08-18-2023 DULoxetine (Cy mbalta) [address] capsule Start: 12-16-2022 DULoxetine (CY MBALTA) extended release capsule 30 mg Start: 12-15-2022 take 30 mg by mouth once daily duloxetine 30 mg, Oral, Daily, Refills(s) 0 Start Date: 12/15/22 Status: Ordered Start: 05-10-2021 take 30 mg by mouth once Cymba lta 30 mg, Oral, Daily, per Dr. Parekh decreased while in hospital Start Date: 05/10/21 Status: Ordered take 1 capsule by [facility] once daily DULoxetine (CYMBALTA) 60 MG extended [...] 20 mg gabapentin 100 mg oral capsule (9 sources) Anti-epileptic Agent Start: 12-22-2022 End: 01-25-2023 [...] 10-31-2021 take 1 tablet by claire th in the morning levothyroxine (Synthroid, Levoxyl) 50 MCG tablet Take 50 mcg by mouth in the morning. 0 12/13/2022 Active Start: 10-31-2021 take 1 tablet by claire th once daily Synthroid 50 mcg (0.05 mg) Tab 50 microgram = 1 tab(s), Oral, Daily, # 90 tab(s), Refills(s) 3, Pharmacy: [address], 168, cm, 10/26/21 13:49:00 EST, Height/Length Dosing, 112.5, kg, 10/14/21 10:15:00 EST, Weight Dosing Start Date: 10/31/21 Status: Ordered lisinopril 20 mg oral tablet (20 sources) Angiotensin Converting Enzyme Inhibitor Start: 01-05-2018 End: 12-26-2022 lisinopril (PRINIVIL;ZESTRIL) tablet 20 mg loperamide hydrochloride 2 mg oral capsule (2 sources) Opioid Agonist loperamide (Imod ium) 2 MG capsule Take 2 mg by mouth 0 Active metoprolol tartrate 100 mg oral tablet (20 sources) beta-Adrenergic Lucas Start: 01-22-2023 metoprolol tartrate (Lopressor) 100 MG tablet Take 100 mg by mouth 0 01/22/2023 Active Start: 12-26-2022 take 1 tablet by claire th once daily metoprolol tartrate (LOPRESSOR) 100 MG tablet Take 1 tablet by mouth daily 60 tablet 3 12/26/2022 Active Start: 12-16-2022 metoprolol tar trate (LOPRESSOR) tablet 100 mg Start: 12-15-2022 take 1 tablet by claire th every twenty-four hours metoprolol succinate XL (Toprol-XL) 100 MG 24 hr tablet Take 200 mg by mouth. 0 12/15/2022 Active Start: 12-15-2022 End: 12-15-2022 take 2 tablets [...] Daily, # 90 tab(s), Refills(s) 3, Pharmacy: [facility], 168, cm, 01/24/22 11:42:00 EST, Height/Length Dosing, 116, kg, 01/24/22 11:42:00 EST, Weight Dosing Start Date: 01/24/22 Status: Ordered Multiple Vitamins-Minerals (PRESERVISION AREDS 2+MULTI VIT PO) (20 sources) Multiple Vitamins-Minerals (PRESERVISION AREDS 2+MULTI VIT PO) Take by mouth 0 Active multivitamin 1 tablet (1 source) Start: 023 multivitamin 1 tablet multivitamin with minerals (1 source) Start: 023 take 1 tablet by mouth once daily multivitamin with minerals 1 tab, Oral, Daily, Refill(s) 0 Start Date: 12/13/22 Status: Ordered omeprazole 20 mg delayed release oral capsule (2 sources) Proton Pump Inhibitor Start: omeprazole (PriLOSEC) [address] capsule ondansetron 4 mg oral tablet (3 sources) Serotonin-3 Receptor Antagonist Start: ondansetron (Zofran) 4 MG tablet Start: 12-21-2022 ondansetron (Z OFRAN-ODT) disintegrating tablet 4 mg pantoprazole 40 mg delayed release oral tablet (3 sources) Proton Pump Inhibitor Start: 12-27-2022 take 1 tablet by mouth once daily before breakfast pantoprazole (PROTONIX) 40 MG tablet Take 1 tablet by mouth every morning (before breakfast) 30 tablet 3 12/27/2022 Active Start: 12-15-2022 pantoprazole ( PROTONIX) tablet 40 mg microencapsulated potassium chloride 20 meq extended release oral tablet (20 sources) Start: 08-18-2023 potassium chlo ride CR (Klor-Con M20) 20 MEQ ER tablet Start: 12-16-2022 potassium chlo ride (KLOR-CON) extended [...] daily 30 tablet 3 09/19/2021 Active sennosides, skilled nursing 8.6 mg oral tablet (3 sources) Start: 12-26-2022 End: 01-25-2023 take 2 tablets by mouth twice daily as needed for constipation senna (SENOKOT) 8.6 MG tablet Take 2 tablets by mouth 2 times daily as needed (Constipation) 0 12/26/2022 01/25/2023 Active Start: 12-16-2022 senna (SENOKOT ) tablet 17.2 mg Start: 12-15-2022 take 2 tablets by [facility] twice daily as needed Senokot 8.6 mg Tab 17.2 mg = 2 tab(s), Oral, BID, PRN Other (see comment), Refills(s) 0 Start Date: 12/15/22 Status: Ordered spironolactone 25 mg oral tablet (20 sources) Aldosterone Antagonist Start: 12-15-2023 spironolactone (Aldactone) 25 MG tablet Take 25 mg by mouth 0 12/15/2023 Active Start: 01-18-2021 spironolactone (ALDACTONE) tablet 25 mg triamcinolone acetonide 1 mg/ml topical cream (2 sources) Corticosteroid Start: 06-23-2023 triamcinolone (Kenalog) 0.1 % cream vitamin e 180 mg oral capsule (20 sources) Start: 12-25-2022 vitamin E caps ule 400 Units Start: 05-31-2019 vitamin E 400 International_Unit, Oral, Daily, Refills(s) 0 Start Date: 05/31/19 Status: Ordered alpha tocopherol (Vitamin E) 400 units capsule 1 capsule 1 (one) time each day at the same time. 0 Active Completed/Discontinued Medications Medication Drug Class(es) Dates Sig (Normalized) Sig (Original) 0.8 ml adalimumab 50 mg/ml prefilled syringe (20 sources) Tumor Necrosis Factor Lucas Start: 08-30-2010 End: 08-30-2010 inject 40 mg by subcutaneous injection once Humira 40 mg/0.8 mL subcutaneous kit 40 mg = 0.8 mL, SubCutaneous, Further dosing per PCP or fish hatchery assistant, Refills(s) 0, Arthritis Start Date: 08/30/10 Stop Date: 08/30/10 Status: Ordered inject 40 mg by subc utaneous injection every other week Humira 40 MG/0.8ML Prefilled Syringe Kit prefilled syringe inject 40 milligram (1 SYRINGE) subcutaneously every OTHER WEEK 0 Active adalimumab (HUMI RA) 40 MG/0.8ML injection Inject 40 mg into the skin every 14 days 0 Active adalimumab (HUMI RA) 40 MG/0.8ML injection Inject 40 mg into the skin once 0 Active betamethasone 3 mg/ml / betamethasone acetate 3 mg/ml injectable suspension (8 sources) Corticosteroid Start: 01-03-2024 End: 01-03-2024 betamethasone acetate-betamethasone sodium phosphate (Celestone) injection 6 mg Compression stockings, 20-30 mmHg (8 sources) Start: [...] International_Unit = 1 cap(s), Oral, Daily, per incoming freight clerk Start Date: 02/06/20 Status: Ordered Problems Active [...] Coronary atherosclerosis; Translations: [Ischemic myocardial dysfunction] Onset: 09-06-2023 Chronic Diabetes mellitus with complications (3 sources) [...] current use of drug therapy; Translations: [Other group home (current) drug therapy] Onset: 12-14-2022 Episodic Other [...] Onset: 12-03-2023 Episodic Other nervous system disorders (2 sources) Bilateral carpal tunnel syndrome; Translations: [Carpal tunnel syndrome, bilateral upper limbs] 01-03-2024 Chronic Other nervous system disorders (1 source) Numbness; Translations: [Has numbness] Episodic Other nervous system disorders (1 source) Paresthesia; Translations: [Paresthesia of skin] Episodic Other nervous system disorders (17 sources) Numbness of hand; Translations: [Anesthesia of skin] Onset: 10-31-2022 01-05-2021 Episodic Other nervous system disorders (10 sources) Unsteady when standing; Translations: [Unsteadiness on feet] Onset: 10-31-2022 09-26-2021 Episodic Other non-traumatic joint disorders (3 sources) Hip pain; Translations: [Pain in left hip] [...] Test Name Value Interpretation Reference Range Facility Consultation Noteon 01-08-20 Consultation Note [id number] #1.00TIFF Normal [facility] No Panel Informationon 01-03 Divine Carter MA 01/07/2024 4:00 PM M Inj/Asp: bilateral radiocarpal on 01/03/2024 1:55 PM Indications: diagnostic evaluation Details: 25 G needle, ultrasound-guided Medications (Right): 6 mg betamethasone acetate-betamethason e sodium phosphate 6 (3-3) MG/ML Medications (Left): 6 mg betamethasone acetate-betamethason e sodium phosphate 6 (3-3) MG/ML Outcome: tolerated well, no immediate complications Consent was given by the patient. [facility] Echocardi[facility]on Echocardiography [id number]# 1.00TIFF Normal [facility] Retail - Clinical Noteon Retail - Clinical Note [id number] #1.00TIFF Normal [facility] CBC with Diffon 09-06-2023 Abs. Basophil 0.02 k/uL Normal 0.00-0.20 [facility] Comment on above: Performed By: #### Martha FAST, CP, CDP, TSHX, MG #### [facility] [address] [place] [address] [place]: Ronaldo Reed MD #### LIPR #### [facility] [place] [address] [place] [address] [place]: Jaxon Irwin MD Abs.Imm.Granulocyte 0.01 k/uL Normal 0.00-0.30 [facility] Comment on above: Performed By: #### Martha FAST, CP, CDP, TSHX, MG #### [facility] [address] [place] [id number] [place]: Ronaldo Reed MD #### LIPR #### [place] [id number] [place]: Jaxon Irwin MD Abs.Neutrophil (Seg) 5.48 k/uL Normal 2.5-7.[address] [facility] Comment on above: Performed By: #### Z FAST, CP, CDP, TSHX, MG #### [facility] [address] [place], [place] [id number] [place]: Ronaldo Reed MD #### LIPR #### [address] [id number] [place]: Jaxon Irwin MD Basophils/100 WBC (Bld) 0 % Normal 0-2 [facility] Comment on above: Performed By: #### Martha FAST, CP, CDP, TSHX, MG #### [facility] [address] [place], [place] [id number] [place]: Ronaldo Reed MD #### LIPR #### [address] [id number] [place]: Jaxon Irwin MD Eosinophils (Bld) [#/Vol] 0.35 10*3/uL Normal 0.00-0.40 [facility] Comment on above: Performed By: #### Martha FAST, CP, CDP, TSHX, MG #### [facility] [address] [place], [place] [id number] [place]: Ronaldo Reed MD #### LIPR #### [address] [address] [place]: Jaxon Irwin MD Eosinophils/100 WBC (Bld) 4 % Normal 0-5 [facility] Comment on above: Performed By: #### Z FAST, CP, CDP, TSHX, MG #### [facility] [address] [place], [place] [id number] [place]: Ronaldo Reed MD #### LIPR #### [address] [id number] [place]: Jaxon Irwin MD Erythrocyte distribution width (RBC) [Ratio] 13.3 % Normal 12.1-15.2 [facility] Comment on above: Performed By: #### Z FAST, CP, CDP, TSHX, MG #### [facility] [address] [place], [place] [id number] [place]: Ronaldo Reed MD #### LIPR #### [address] [id number] [place]: Jaxon Irwin MD Hematocrit (Bld) [Volume fraction] 40.2 % Normal 36.0-46.0 [facility] Comment on above: Performed By: #### Z FAST, CP, CDP, TSHX, MG #### [facility] [address] [place], [place] [id number] [place]: Ronaldo Reed MD #### LIPR #### [address] [id number] [place]: Jaxon Irwin MD Hemoglobin (Bld) [Mass/Vol] 13.5 g/dL Normal 12.0-16.0 [facility] Comment on above: Performed By: #### Z FAST, CP, CDP, TSHX, MG #### [facility] [address] [place], [place] [id number] [place]: Ronaldo Reed MD #### LIPR #### [address] [id number] [place]: Jaxon Irwin MD Immature granulocytes/100 WBC (Bld) 0 % Normal 0-5 [facility] Comment on above: Performed By: #### Z FAST, CP, CDP, TSHX, MG #### [facility] [address] [place], [place] [id number] [place]: Ronaldo Reed MD #### LIPR #### [address] [id number] [place]: Jaxon Irwin MD Lymphocytes (Bld) [#/Vol] 2.64 10*3/uL Normal 1.00-4.80 [facility] Comment on above: Performed By: #### Z FAST, CP, CDP, TSHX, MG #### [facility] [address] [place], [place] [id number] [place]: Ronaldo Reed MD #### LIPR #### [address] [id number] [place]: Jaxon Irwin MD Lymphocytes/100 WBC (Bld) 29 % Normal 15-40 [facility] Comment on above: Performed By: #### Z FAST, CP, CDP, TSHX, MG #### [facility] [address] [place] [address] Hookman: Ronaldo Reed MD #### LIPR #### [address] [id number] [place]: Jaxon Irwin MD MCH (RBC) [Entitic mass] 30.8 pg Normal 26.0-34.0 [facility] Comment on above: Performed By: #### Z FAST, CP, CDP, TSHX, MG #### [facility] [address] [place] [address] Hook[place]: Ronaldo Reed MD #### LIPR #### [address] [id number] [place]: Jaxon Irwin MD MCHC (RBC) [Mass/Vol] 33.6 g/dL Normal 31.0-37.0 [facility] Comment on above: Performed By: #### Z FAST, CP, CDP, TSHX, MG #### [facility] [address] [place] [address] Hookman: Ronaldo Reed MD #### LIPR #### [address] [id number] [place]: Jaxon Irwin MD MCV (RBC) [Entitic vol] 91.6 fL Normal 80.0-100.0 [facility] Comment on above: Performed By: #### Z FAST, CP, CDP, TSHX, MG #### [facility] [address] [place] [address] Hookman: Ronaldo Reed MD #### LIPR #### [address] [id number] [place]: Jaxon Irwin MD Monocytes (Bld) [#/Vol] 0.49 10*3/uL Normal 0.00-1.00 [facility] Comment on above: Performed By: #### Z FAST, CP, CDP, TSHX, MG #### [facility] [address] [place] [address] Hookman: Ronaldo Reed MD #### LIPR #### [place] [address] Hookman: Jaxon Irwin MD Monocytes/100 WBC (Bld) 6 % Normal 4-8 [facility] Comment on above: Performed By: #### Z FAST, CP, CDP, TSHX, MG #### [facility] [address] [place] [phone] ( [place]: Ronaldo Reed MD #### LIPR #### [address] [id number] [place]: Jaxon Irwin MD Neutrophil (Seg) 61 % Normal 47-75 [facility] Comment on above: Performed By: #### Z FAST, CP, CDP, TSHX, MG #### [facility] [address] [place] [phone] ( [place]: Ronaldo Reed MD #### LIPR #### [address] [phone] [place]: Jaxon Irwin MD Platelet mean volume (Bld) [Entitic vol] 9.4 fL Normal 6.0-12.0 [facility] Comment on above: Performed By: #### Z FAST, CP, CDP, TSHX, MG #### [facility] [address] [place] [id number] ( [place]: Ronaldo Reed MD #### LIPR #### [address] [id number] [place]: Jaxon Irwin MD Platelets (Bld) [#/Vol] 298 10*3/uL Normal 140-450 [facility] Comment on above: Performed By: #### Z FAST, CP, CDP, TSHX, MG #### [facility] [address] [place] [phone] ( [place]: Ronaldo Reed MD #### LIPR #### [place] [address] Hookman: Jaxon Irwin MD RBC (Bld) [#/Vol] 4.39 10*6/uL Normal 4.00-5.20 [facility] Comment on above: Performed By: #### Z FAST, CP, CDP, TSHX, MG #### [facility] [address] [place] [phone] ( [place]: Ronaldo Reed MD #### LIPR #### [place] [address] Hookman: Jaxon Irwin MD WBC (Bld) [#/Vol] 9.0 10*3/uL Normal 3.5-11.0 [facility] Comment on above: Performed By: #### Z FAST, CP, CDP, TSHX, MG #### [facility] [address] [place], [place] [id number] [place]man: Ronaldo Reed MD #### LIPR #### [place] [address] [place], [place] [id number] Hookman: Jaxon Irwin MD Comp Metabolic Profon 2022 Albumin [Mass/Vol] 3.8 g/dL Normal 3.5-5.2 [facility] Comment on above: Performed By: #### Z FAST, CP, CDP, TSHX, MG #### [facility] [address] [place], [place] [id number] [place]: Ronaldo Reed MD #### LIPR #### [address] [id number] [place]: Jaxon Irwin MD Alkaline Phos 120 U/L High 35-104 [facility] Comment on above: Performed By: #### Z FAST, CP, CDP, TSHX, MG #### [facility] [address] [place], [place] [id number] [place]: Ronaldo Reed MD #### LIPR #### [address] [id number] [place]: Jaxon Irwin MD ALT [Catalytic activity/Vol] 15 U/L Normal 5-33 [facility] Comment on above: Performed By: #### Z FAST, CP, CDP, TSHX, MG #### [facility] [address] [place], [place] [id number] [place]: Ronaldo Reed MD #### LIPR #### [address] [id number] [place]: Jaxon Irwin MD Anion gap [Moles/Vol] 11 mmol/L Normal 9-17 [facility] Comment on above: Performed By: #### Z FAST, CP, CDP, TSHX, MG #### [facility] [address] [place], [place] [id number] [place]: Ronaldo Reed MD #### LIPR #### [address] [id number] [place]: Jaxon Irwin MD AST [Catalytic activity/Vol] 15 U/L Normal <32 [facility] Comment on above: Performed By: #### Z FAST, CP, CDP, TSHX, MG #### [facility] [address] [place], [place] [id number] [place]: Ronaldo Reed MD #### LIPR #### [address] [id number] [place]: Jaxon Irwin MD Bilirubin [Mass/Vol] 0.6 mg/dL Normal 0.3-1.[address] [facility] Comment on above: Performed By: #### Z FAST, CP, CDP, TSHX, MG #### [facility] [address] [place], [place] [id number] [place]: Ronaldo Reed MD #### LIPR #### [address] [id number] [place]: Jaxon Irwin MD BUN/CRE Ratio 30 High 9-20 [facility] Comment on above: Performed By: #### Z FAST, CP, CDP, TSHX, MG #### [facility] [address] [place], [place] [id number] [place]: Ronaldo Reed MD #### LIPR #### [address] [id number] [place]: Jaxon Irwin MD Calcium [Mass/Vol] 10.0 mg/dL Normal 8.6-10.4 [facility] Comment on above: Performed By: #### Z FAST, CP, CDP, TSHX, MG #### [facility] [address] [place] [address] Hookman: Ronaldo Reed MD #### LIPR #### [facility] [address] [place], [place] [phone] Hook[place]: Jaxon Irwin MD Chloride [Moles/Vol] 98 mmol/L Normal 98-[address] [facility] Comment on above: Performed By: #### Z FAST, CP, CDP, TSHX, MG #### [facility] [address] [place] [address] Hook[place]: Ronaldo Reed MD #### LIPR #### [facility] [address] [place], [place] [id number] [place]: Jaxon Irwin MD CO2 [Moles/Vol] 28 mmol/L Normal 20-31 [facility] Comment on above: Performed By: #### Z FAST, CP, CDP, TSHX, MG #### [facility] [address] [place] [address] Hookman: Ronaldo Reed MD #### LIPR #### [facility] [address] [place], [place] [phone] [place]: Jaxon Irwin MD Creatinine [Mass/Vol] 0.8 mg/dL Normal 0.5-0.9 [facility] Comment on above: Performed By: #### Z FAST, CP, CDP, TSHX, MG #### [facility] [address] [place] [address] Hookman: Ronaldo Reed MD #### LIPR #### [facility] [address] [place], [place] [id number] [place]: Jaxon Irwin MD GFR/1.73 sq M.predicted among non-blacks MDRD (S/P/Bld) [Vol rate/Area] mL/min/{1.73_m2} Normal >60 [facility] Comment on above: Result Comment: These [...] Z FAST, CP, CDP, TSHX, MG #### [facility] [address] [place], [place] [id number] [place]: Ronaldo Reed MD #### LIPR #### [address] [id number] [place]: Jaxon Irwin MD Glucose [Mass/Vol] 126 mg/dL High 70-99 [facility] Comment on above: Performed By: #### Z FAST, CP, CDP, TSHX, MG #### [facility] [address] [place] [address] [place]: Ronaldo Reed MD #### LIPR #### [address] [address] [place]: Jaxon Irwin MD Potassium [Moles/Vol] 3.9 mmol/L Normal 3.7-5.3 [facility] Comment on above: Performed By: #### Z FAST, CP, CDP, TSHX, MG #### [facility] [address] [place] [address] [place]: Ronaldo Reed MD #### LIPR #### [address] [address] [place]: Jaxon Irwin MD Protein [Mass/Vol] 7.3 g/dL Normal 6.4-8.3 [facility] Comment on above: Performed By: #### Z FAST, CP, CDP, TSHX, MG #### [facility] [address] [place], [place] [id number] [place]: Ronaldo Reed MD #### LIPR #### [place] [id number] [place], [place] [address] [place]: Jaxon Irwin MD Sodium [Moles/Vol] 137 mmol/L Normal 135-144 [facility] Comment on above: Performed By: #### Z FAST, CP, CDP, TSHX, MG #### [facility] [address] [place], [place] [id number] [place]: Ronaldo Reed MD #### LIPR #### [address] [phone] [place]: Jaxon Irwin MD Urea nitrogen [Mass/Vol] 24 mg/dL High 8- [facility] Comment on above: Performed By: #### Z FAST, CP, CDP, TSHX, MG #### [facility] [address] [place], [place] [id number] [place]: Ronaldo Reed MD #### LIPR #### [address] [phone] [place]: Jaxon Irwin MD Lipid Profileon 09-06-2023 Cholesterol [Mass/Vol] 166 mg/dL Normal <200 [facility] Comment on above: Result Comment: Cholesterol Guidelines: <200 Desirable 200-240 Borderline >240 Undesirable Performed By: #### Z FAST, CP, CDP, TSHX, MG #### [facility] [address] [place], [place] [id number] [place]: Ronaldo Reed MD #### LIPR #### [address] [id number] [place]: Jaxon Irwin MD Cholesterol in HDL [Mass/Vol] 54 mg/dL Normal >40 [facility] Comment on above: Result Comment: HDL Guidelines: <40 Undesirable 40-59 Borderline >59 Desirable Performed By: #### Z FAST, CP, CDP, TSHX, MG #### [facility] [address] [place], [place] [id number] [place]: Ronaldo Reed MD #### LIPR #### [address] [id number] Hookman: Jaxon Irwin MD Cholesterol in LDL [Mass/Vol] 90 mg/dL Normal 0-130 [facility] Comment on above: Result Comment: LDL Guidelines: <100 Desirable 100-129 Near to/above Desirable 130-159 Borderline >159 Undesirable Direct (measured) LDL and calculated LDL are not interchangeable tests. Performed By: #### Z FAST, CP, CDP, TSHX, MG #### [facility] [address] [place], [place] [id number] Hookman: Ronaldo Reed MD #### LIPR #### [facility] [employer] [address] [place] [address] [phone] Hookman: Jaxon Irwin MD Cholesterol.total/Chol esterol in HDL [Mass ratio] 3.1 {ratio} Normal <5 [facility] Comment on above: Performed By: #### Z FAST, CP, CDP, TSHX, MG #### [facility] [address] [place], [place] [id number] Hookman: Ronaldo Reed MD #### LIPR #### [facility] [employer] [facility] [place], [place] [id number] Hookman: Jaxon Irwin MD Triglyceride [Mass/Vol] 108 mg/dL Normal <150 [facility] Comment on above: Result Comment: Triglyceride Guidelines: <150 Desirable 150-199 Borderline 200-499 High >499 Very high Based on AHA Guidelines for fasting triglyceride, August 2012. Performed By: #### Z FAST, CP, CDP, TSHX, MG #### [facility] [address] [place] [address] Hookman: Ronaldo Reed MD #### LIPR #### [address] [place], [place] [phone] Hookman: Jaxon Irwin MD Magnesiumon 09-06-2023 Magnesium [Mass/Vol] 1.9 mg/dL Normal 1.6-2.[address] [facility] Comment on above: Performed By: #### Z FAST, CP, CDP, TSHX, MG #### [facility] [address] [place] [address] Hookman: Ronaldo Reed MD #### LIPR #### [address] [phone] Hookman: Jaxon Irwin MD Patient fasting?on 3 Patient fasting? YES Normal [facility] Comment on above: Performed By: #### Martha FAST, CP, CDP, TSHX, MG #### [facility] [address] [place] [phone] ( Hookman: Ronaldo Reed MD #### LIPR #### [address] [id number] Hookman: Jaxon Irwin MD RAD - MISCon 09-06-2023 RAD - MISC [id number] #[id number] Normal [facility] TSH w/reflex to FT4on 2022 Thyroid Stim. Horm. 2.32 uIU/mL Normal 0.30-5.[address] [facility] Comment on above: Performed By: #### Z FAST, CP, CDP, TSHX, MG #### [facility] [address] [place] [address] Hookman: Ronaldo Reed MD #### LIPR #### [address] [phone] Hookman: Jaxon Irwin MD XR CHEST (2 VW)on [...] Godoy Jr., MD 09/06/23 Final result Normal [facility] POTASSIUMon 03-05-2023 Potassium [Moles/Vol] 4.0 mmol/L Normal 3.5-5.1 [facility] Comment on above: Performed By: #### K #### [facility] [address] [place] [address] Dr. Lacey Corado BNPon 02-28-2023 Natriuretic peptide B (Bld) [Mass/Vol] 60.0 pg/mL Normal <=1,800.0 [facility] Comment on above: Performed By: #### B MP, BNP #### [facility] [address] [place] [address] Dr. Lacey Corado PROF CHEM 8 (BAS METB)on Anion gap [Moles/Vol] 10.8 mmol/L Normal [facility] Comment on above: Performed By: #### B MP, BNP #### [facility] [address] [place] [address] Dr. Lacey Corado Calcium [Mass/Vol] 9.0 mg/dL Normal 8.5-10.1 [facility] Comment on above: Performed By: #### B MP, BNP #### [facility] [address] [place] [address] Dr. Lacey Corado Chloride [Moles/Vol] 103 mmol/L Normal 98-107 [facility] Comment on above: Performed By: #### B MP, BNP #### [facility] [address] [place] [address] Dr. Lacey Corado CO2 [Moles/Vol] 28.5 mmol/L Normal 21.0-32.0 [facility] Comment on above: Performed By: #### B MP, BNP #### [facility] [address] [address] [address] Lacey Corado Creatinine [Mass/Vol] 0.81 mg/dL Normal 0.55-1.02 [facility] Comment on above: Performed By: #### B MP, BNP #### [facility] [address] [address] [address] Lacey Corado EGFR-AF KOSOVAN >60 Normal >=60 [facility] Comment on above: Performed By: #### B MP, BNP #### [facility] [address] [address] [address] Lacey Corado EGFR-NON AF KOSOVAN >60 Normal >=60 [facility] Comment on above: Performed By: #### B MP, BNP #### [facility] [address] [address] [address] Lacey Corado Glucose [Mass/Vol] 111 mg/dL Critically high 74-106 [facility] Comment on above: Performed By: #### B MP, BNP #### [facility] [address] [address] [address] Lacey Corado Potassium [Moles/Vol] 3.3 mmol/L Critically low 3.5-5.1 [facility] Comment on above: Performed By: #### B MP, BNP #### [facility] [address] [address] [address] Lacey Corado Sodium [Moles/Vol] 139 mmol/L Normal 136-145 [facility] Comment on above: Performed By: #### B MP, BNP #### [facility] [address] [address] [address] Lacey Corado Urea nitrogen [Mass/Vol] 14.0 mg/dL Normal 7.0-18.0 [facility] Comment on above: Performed By: #### B MP, BNP #### [facility] [address] [address] [address] Lacey Corado Urea nitrogen/Creatinine [Mass ratio] 17.3 mg/mg Normal [facility] Comment on above: Performed By: #### B MP, BNP #### [facility] [address] [place], [place] [address] Dr. Lacey Corado PROF CHEM 8 (BAS METB)on Anion gap [Moles/Vol] 14.1 mmol/L Normal [facility] Comment on above: Performed By: #### B MP ####[facility] [address] [place] [address]Dr. Lacey Corado Calcium [Mass/Vol] 9.2 mg/dL Normal 8.5-10.1 [facility] Comment on above: Performed By: #### B MP ####[facility] [address] [place] [address]Dr. Lacey Corado Chloride [Moles/Vol] 103 mmol/L Normal 98-107 [facility] Comment on above: Performed By: #### B MP ####[facility] [address] [place] [address]Dr. Lacey Corado CO2 [Moles/Vol] 28.4 mmol/L Normal 21.0-32.0 [facility] Comment on above: Performed By: #### B MP ####[facility] [address] [place] [address]Dr. Lacey Corado Creatinine [Mass/Vol] 0.71 mg/dL Normal 0.55-1.02 [facility] Comment on above: Performed By: #### B MP ####[facility] [address] [place] [address]Dr. Lacey Corado EGFR-AF KOSOVAN >60 Normal >=60 [facility] Comment on above: Performed By: #### B MP ####[facility] [address] [place] [address]Dr. Lacey Corado EGFR-NON AF KOSOVAN >60 Normal >=60 [facility] Comment on above: Performed By: #### B MP ####[facility] [address] [place] [address]Dr. Lacey Corado Glucose [Mass/Vol] 139 mg/dL Critically high 74-106 [facility] Comment on above: Performed By: #### B MP ####[facility] [address] [place] [address]Dr. Lacey Corado Potassium [Moles/Vol] 3.5 mmol/L Normal 3.5-5.1 [facility] Comment on above: Performed By: #### B MP ####[facility] [address] [place], [place] [address]Dr. Lacey Mak Sodium [Moles/Vol] 142 mmol/L Normal 136-145 [facility] Comment on above: Performed By: #### B MP ####[facility] [address] [place], [place] [address]Dr. Lacey Mak Urea nitrogen [Mass/Vol] 14.0 mg/dL Normal 7.0-18.0 [facility] Comment on above: Performed By: #### B MP ####[facility] [address] [place], [place] [address]Dr. Lacey Mak Urea nitrogen/Creatinine [Mass ratio] 19.7 mg/mg Normal [facility] Comment on above: Performed By: #### B MP ####[facility] F[address] [place], [place] [address]Dr. Lacey Mak CBC AUTO DIFFon 01-26-2023 BASO # 0.1 103/ul Normal 0.0-0.1 [facility] Comment on above: Performed By: #### C BC ####[facility] [address] [place], [place] [address]Dr. Lacey Mak Basophils/100 WBC (Bld) 0.5 % Normal 0.2-2.0 [facility] Comment on above: Performed By: #### C BC ####[facility] [address] [place], [place] [address]Dr. Lacey Mak EO # 0.4 103/ul Normal 0.0-0.7 [facility] Comment on above: Performed By: #### C BC ####[facility] [address] [place], [place] [address]Dr. Lacey Corado Eosinophils/100 WBC (Bld) 3.6 % Normal 0.9-7.0 [facility] Comment on above: Performed By: #### C BC ####[facility] [address] [place] [address]Dr. Lacey Corado Erythrocyte distribution width (RBC) [Ratio] 13.6 % Normal 11.0-15.0 [facility] Comment on above: Performed By: #### C BC ####[facility] [address] [place], [place] [address]Dr. Lacey Corado Hematocrit (Bld) [Volume fraction] 37.9 % Normal 36.0-48.0 [facility] Comment on above: Performed By: #### C BC ####[facility] [address] [place], [place] [address]Dr. Lacey Corado Hemoglobin (Bld) [Mass/Vol] 12.4 g/dL Normal 12.0-16.0 [facility] Comment on above: Performed By: #### C BC ####[facility] L[address] [place], [place] [address]Dr. Lacey Corado IG # 0.04 10e3/ul Critically high 0.00-0.03 [facility] Comment on above: Performed By: #### C BC ####[facility] [address] [place], [place] [address]Dr. Lacey Corado IG % 0.4 % Normal 0.0-0.5 [facility] Comment on above: Performed By: #### C BC ####[facility] [address] [place], [place] [address]Dr. Lacey Corado LYMPH # 1.9 103/ul Normal 1.2-3.8 [facility] Comment on above: Performed By: #### C BC ####[facility] Dr[address] [place], [place] [address]Dr. Lacey Corado Lymphocytes/100 WBC (Bld) 18.6 % Critically low 20.5-60.0 [facility] Comment on above: Performed By: #### C BC ####[facility] H[address] [place], [place] [address]Dr. Lacey Corado MANUAL DIFF REQ NO Normal [facility] Comment on above: Performed By: #### C BC ####[facility] [address] [place] [id number]. Lacey Mak MCH (RBC) [Entitic mass] 30.5 pg Normal 26.7-34.0 [facility] Comment on above: Performed By: #### C BC ####[facility] [address] [place] [id number]. Lacey Mak MCHC (RBC) [Mass/Vol] 32.7 g/dL Normal 29.9-35.2 [facility] Comment on above: Performed By: #### C BC ####[facility] [address] [place] [address]Dr. Maria Fernandagaurav Corado MCV (RBC) [Entitic vol] 93.3 fL Normal 81.0-99.0 [facility] Comment on above: Performed By: #### C BC ####[facility] [address] [place], [place] [address]Dr. Lacey Corado MONO # 0.8 103/ul Normal 0.3-0.8 [facility] Comment on above: Performed By: #### C BC ####[facility] [address] [place] [address]Dr. Lacey Corado Monocytes/100 WBC (Bld) 7.8 % Normal 1.7-12.0 [facility] Comment on above: Performed By: #### C BC ####[facility] [address] [place] [address]Dr. Lacey Corado NEUT # 7.0 103/ul Critically high 1.4-6.5 [facility] Comment on above: Performed By: #### C BC ####[facility] [address] [place], [place] [address]Dr. Lacey Corado Neutrophils/100 WBC (Bld) 69.1 % Normal 43.0-75.0 [facility] Comment on above: Performed By: #### C BC ####[facility] [address] [place] [id number]. Lacey Corado Platelet mean volume (Bld) [Entitic vol] 9.4 fL Critically low 9.5-13.5 [facility] Comment on above: Performed By: #### C BC ####[facility] [address] [place], [place] [address]Vm. Lacey Corado PLT 355 103/ul Normal 150-450 [facility] Comment on above: Performed By: #### C BC ####[facility] [address] [place], [place] [address]Rn. Lacey Corado RBC 4.06 106/ul Critically low 4.20-5.40 [facility] Comment on above: Performed By: #### C BC ####[facility] [address] [place], [place] [address]Rd. Lacey Corado WBC 10.1 103/ul Normal 4.0-11.0 [facility] Comment on above: Performed By: #### C BC ####[facility] [address] [place], [place] [address] Cor[address] CT HEAD WO CONon 01-26-2023 CT [...] Reyes TRACY Date: 2023-01-26 01:23 Normal [facility] PROF 14(COMP METB)on 023 Albumin [Mass/Vol] 3.3 g/dL Critically low 3.4-5.0 [facility] Comment on above: Performed By: #### C MP #### [facility] [address] [place], [place] [address] Dr. Lacey Corado Albumin/Globulin [Mass ratio] 0.8 {ratio} Normal [facility] Comment on above: Performed By: #### C MP #### [facility] [address] [address] [address] Lacey Corado ALP [Catalytic activity/Vol] 134 U/L Critically high 46-116 [facility] Comment on above: Performed By: #### C MP #### [facility] [address] [address] [address] Lacey Corado ALT [Catalytic activity/Vol] 21 U/L Normal 14-59 [facility] Comment on above: Performed By: #### C MP #### [facility] [address] [address] [address] Lacey Corado Anion gap [Moles/Vol] 15.5 mmol/L Normal [facility] Comment on above: Performed By: #### C MP #### [facility] [address] [place] [address] Dr. Lacey Corado AST [Catalytic activity/Vol] 19 U/L Normal 15-37 [facility] Comment on above: Performed By: #### C MP #### [facility] [address] [address] [address] Lacey Corado Bilirubin [Mass/Vol] 0.5 mg/dL Normal 0.2-1.0 [facility] Comment on above: Performed By: #### C MP #### [facility] [address] [place] [address] Dr. Lacey Corado Calcium [Mass/Vol] 9.1 mg/dL Normal 8.5-10.1 [facility] Comment on above: Performed By: #### C MP #### [facility] [address] [address] [address] Lacey Corado Chloride [Moles/Vol] 106 mmol/L Normal 98-107 [facility] Comment on above: Performed By: #### C MP #### [facility] [address] [address] [address] Lacey Corado CO2 [Moles/Vol] 26.2 mmol/L Normal 21.0-32.0 [facility] Comment on above: Performed By: #### C MP #### [facility] [address] [address] [address] Lacey Corado Creatinine [Mass/Vol] 0.95 mg/dL Normal 0.55-1.02 [facility] Comment on above: Performed By: #### C MP #### [facility] [address] [address] [address] Lacey Corado EGFR-AF KOSOVAN >60 Normal >=60 [facility] Comment on above: Performed By: #### C MP #### [facility] [address] [address] [address] Lacey Corado EGFR-NON AF KOSOVAN 56 mL/min/1.73m2 Critically low >=60 [facility] Comment on above: Performed By: #### C MP #### [facility] [address] [address] [address] Lacey Corado Globulin (S) [Mass/Vol] 4.0 g/dL Normal [facility] Comment on above: Performed By: #### C MP #### [facility] [address] [address] [address] Lacey Corado Glucose [Mass/Vol] 135 mg/dL Critically high 74-106 T [facility] Comment on above: Performed By: #### C MP #### [facility] [address] [address] [address] Lacey Corado Potassium [Moles/Vol] 3.7 mmol/L Normal 3.5-5.1 [facility] Comment on above: Performed By: #### C MP #### [facility] [address] [address] [address] Lacey Corado Protein [Mass/Vol] 7.3 g/dL Normal 6.4-8.2 [facility] Comment on above: Performed By: #### C MP #### [facility] [address] [address] [address] Lacey Corado Sodium [Moles/Vol] 144 mmol/L Normal 136-145 [facility] Comment on above: Performed By: #### C MP #### [facility] [address] [address] [address] Lacey Corado Urea nitrogen [Mass/Vol] 17.0 mg/dL Normal 7.0-18.0 [facility] Comment on above: Performed By: #### C MP #### [facility] [address] [place] [address] Dr. Lacey Corado Urea nitrogen/Creatinine [Mass ratio] 17.9 mg/mg Normal [facility] Comment on above: Performed By: #### C MP #### [facility] [address] [place] [address] Dr. Lacey Corado PROTIMEon 01-26-2023 INR Coag (PPP) [Relative time] 1.03 {INR} Normal [facility] Comment on above: Performed By: #### P TT, PT #### [facility] [address] [place] [address] Dr. Lacey Corado INR GUIDELINES SEE BELOW Normal [facility] Comment on above: Result Comment: JAD RED INR: 2.0 - 3.0 CONDITIONS NOT LISTED BELOW 2.5 - 3.5 FOR PROSTHETIC HEART VALVE REPLACEMENT 2.5 - 3.5 RECURRENT THROMBOSIS Performed By: #### P TT, PT #### [facility] [address] [place] [address] Dr. Lacey Corado PT Coag (PPP) [Time] 10.9 s Normal 9.0-11.6 [facility] Comment on above: Performed By: #### P TT, PT #### [facility] [address] [place] [address] Dr. Lacey Corado PTTon 01-26-2023 aPTT Coag (Bld) [Time] 22.2 s Critically low 22.3-36.2 [facility] Comment on above: Performed By: #### P TT, PT #### [facility] [address] [place] [address] Dr. Lacey Corado XR FEMUR RTon 01-26-2023 [...] right femoral head is excluded from the [id number]. There are advanced degenerative changes of the [...] by: Reyes TRACY Date: 2023-01-26 01:27 Normal [facility] EKG Rhythm Stripon 3 [facility] BON [facility] EKG [facility]hythm Stripon 3 [facility] EKG [facility]hythm Stripon 3 [facility] with 1 degree AV block [facility] with 1st degree AV block [facility] EKG [facility]hythm Stripon 3 [facility] R[facility] LAB [facility] Basic Metabolic Panelon 11-27 Anion gap [Moles/Vol] 10 mmol/L 9 - 17 mmol/L [facility] Calcium [Mass/Vol] 9.2 mg/dL 8.6 - 10. 4 mg/dL [facility] Chloride [Moles/Vol] 101 mmol/L 98 - 10 7 mmol/L [facility] CO2 [Moles/Vol] 26 mmol/L 20 - 31 mmol/L [facility] Creatinine [Mass/Vol] 0.9 mg/dL 0.50 - 0.90 mg/dL [facility] GFR/1.73 sq M.predicted MDRD (S/P/Bld) [Vol rate/Area] - PINF [facility] Comment on above: These results are not [...] 100 mg/dL High 70 - 99 mg/dL [facility] Interpretation and review of laboratory results Abnormal [facility] Potassium [Moles/Vol] 4.3 mmol/L 3.7 - 5.3 mmol/L [facility] Sodium [Moles/Vol] 137 mmol/L 135 - 144 mmol/L [facility] Urea nitrogen (BldV) [Mass/Vol] 37 mg/dL High 8 - 23 mg/dL [facility] Urea nitrogen/Creatinine (Bld) [Mass ratio] 41 High 9 - 20 [facility] Basic Metabolic Profon 12-22 Anion gap [Moles/Vol] 10 mmol/L Normal 9-17 [facility] Comment on above: Performed By: #### U AX #### [facility] [address] [place] [address] Hookman: Ronaldo Reed MD BUN/CRE Ratio 41 High 9-20 [facility] Comment on above: Performed By: #### U AX #### [facility] [address] [place], [place] [id number] Hookman: Ronaldo Reed MD Calcium [Mass/Vol] 9.2 mg/dL Normal 8.6-10.4 [facility] Comment on above: Performed By: #### U AX #### [facility] [address] [place], [place] [id number] Hookman: Ronaldo Reed MD Chloride [Moles/Vol] 101 mmol/L Normal 98-[address] [facility] Comment on above: Performed By: #### U AX #### [facility] [address] [place] [address] Hookman: Ronaldo Reed MD CO2 [Moles/Vol] 26 mmol/L Normal 20-31 [facility] Comment on above: Performed By: #### U AX #### [facility] [address] [place] [address] Hookman: Ronaldo Reed MD Creatinine [Mass/Vol] 0.90 mg/dL Normal 0.50-0.90 [facility] Comment on above: Performed By: #### U AX #### [facility] [address] [place] [address] Hookman: Ronaldo Reed MD GFR/1.73 sq M.predicted among non-blacks MDRD (S/P/Bld) [Vol rate/Area] mL/min/{1.73_m2} Normal >60 [facility] Comment on above: Result Comment: These [...] secretion. Performed By: #### U AX #### [facility] [address] [place], [place] [id number] Hookman: Ronaldo Reed MD Glucose [Mass/Vol] 100 mg/dL High 70-99 [facility] Comment on above: Performed By: #### U AX #### [facility] [address] [place], [place] [id number] Hookman: Ronaldo Reed MD Potassium [Moles/Vol] 4.3 mmol/L Normal 3.7-5.3 [facility] Comment on above: Performed By: #### U AX #### [facility] [address] [place], [place] [id number] Hookman: Ronaldo Reed MD Sodium [Moles/Vol] 137 mmol/L Normal 135-144 [facility] Comment on above: Performed By: #### U AX #### [facility] [address] [place], [place] [id number] Hookman: Ronaldo Reed MD Urea nitrogen [Mass/Vol] 37 mg/dL High 8-23 [facility] Comment on above: Performed By: #### U AX #### [facility] [address] [place], [place] [id number] Hookman: Ronaldo Reed MD EKG 12 Leadon 12-22-2022 Atrial Rate 75 BPM [facility] Work Phone: P Rugby 26 degrees [facility] [employer] Phone: P-R Interval 222 ms [facility] [employer] Phone: Q-T Interval 376 ms [facility] [employer] Phone: QRS Duration 92 ms [facility] [employer] Phone: QTc Calculation (Bazett) 419 ms [facility] [employer] Work Phone: R Rugby 12 degrees [facility] Work Phone: T Rugby 14 degrees [facility] Work Phone: Ventricular Rate 75 BPM [facility] Work Phone: Sinus rhythm with 1st degree A-V block Possible Anterior infarct , age undetermined Abnormal ECG [facility] Андрей Rodriguez MD - 12/22/2022 Sinus rhythm with 1st degree A-V block Possible Anterior infarct , age undetermined Abnormal ECG [facility] Work Phone: [facility] Work Phone: EKG Rhythm Stripon 3 [facility] absent T wave? prolonged QT? [facility] absent T wave? prolonged QT? [facility] Troponinon 12-22-2022 Troponin, High Sens 33 ng/L High 0-14 [facility] Comment on above: Result Comment: High Sensitivity Troponin values cannot be compared with other Troponin methodologies. Performed By: #### U AX #### [facility] [address] [place] [address] Hookman: Ronaldo Reed MD Basic Metabolic Panelon 11-27 Anion gap [Moles/Vol] 12 mmol/L 9 - 17 mmol/L [facility] Calcium [Mass/Vol] 9.6 mg/dL 8.6 - 10. 4 mg/dL [facility] Chloride [Moles/Vol] 100 mmol/L 98 - 10 7 mmol/L [facility] CO2 [Moles/Vol] 22 mmol/L 20 - 31 mmol/L [facility] Creatinine [Mass/Vol] 1.26 mg/dL High 0.50 - 0.90 mg/dL [facility] GFR/1.73 sq M.predicted MDRD (S/P/Bld) [Vol rate/Area] 42 mL/min/{1.73_m2} Low - PINF [facility] Comment on above: These results are not [...] 119 mg/dL High 70 - 99 mg/dL [facility] Interpretation and review of laboratory results Abnormal [facility] Potassium [Moles/Vol] 5.2 mmol/L 3.7 - 5.3 mmol/L [facility] Sodium [Moles/Vol] 134 mmol/L Low 135 - 144 mmol/L [facility] Urea nitrogen (BldV) [Mass/Vol] 38 mg/dL High 8 - 23 mg/dL [facility] Urea nitrogen/Creatinine (Bld) [Mass ratio] 30 High 9 - 20 [facility] Basic Metabolic Profon 12-21 Anion gap [Moles/Vol] 12 mmol/L Normal 9-17 [facility] Comment on above: Performed By: #### U AX #### [facility] [address] [place] [address] [place]: Ronaldo Reed MD BUN/CRE Ratio 30 High 9-20 [facility] Comment on above: Performed By: #### U AX #### [facility] [address] [place] [address] [place]: Ronaldo Reed MD Calcium [Mass/Vol] 9.6 mg/dL Normal 8.6-10.4 [facility] Comment on above: Performed By: #### U AX #### [facility] [address] [place] [address] [place]: Ronaldo Reed MD Chloride [Moles/Vol] 100 mmol/L Normal 98-[address] [facility] Comment on above: Performed By: #### U AX #### [facility] [address] [place] [address] [place]: Ronaldo Reed MD CO2 [Moles/Vol] 22 mmol/L Normal 20-31 [facility] Comment on above: Performed By: #### U AX #### [facility] [address] [place] [address] [place]: Ronaldo Reed MD Creatinine [Mass/Vol] 1.26 mg/dL High 0.50-0.90 [facility] Comment on above: Performed By: #### U AX #### [facility] [address] [place] [address] [place]: Ronaldo Reed MD GFR/1.73 sq M.predicted among non-blacks MDRD (S/P/Bld) [Vol rate/Area] 42 mL/min/{1.73_m2} Low >60 [facility] Comment on above: Result Comment: These results [...] secretion. Performed By: #### U AX #### [facility] [address] [place] [address] [place]: Ronaldo Reed MD Glucose [Mass/Vol] 119 mg/dL High 70-99 [facility] Comment on above: Performed By: #### U AX #### [facility] [address] [place] [address] [place]: Ronaldo Reed MD Potassium [Moles/Vol] 5.2 mmol/L Normal 3.7-5.3 [facility] Comment on above: Performed By: #### U AX #### [facility] [address] [place] [address] [place]: Ronaldo Reed MD Sodium [Moles/Vol] 134 mmol/L Low 135-144 [facility] Comment on above: Performed By: #### U AX #### [facility] [address] [place] [address] [place]: Ronaldo Reed MD Urea nitrogen [Mass/Vol] 38 mg/dL High 8-23 [facility] Comment on above: Performed By: #### U AX #### [facility] [address] [place] [address] [place]: Ronaldo Reed MD CBC with Auto Differentialon 12-21-2022 Absolute Eos # 0.30 [facility] Absolute Lymph # 2.50 [facility] Absolute [place] # 0.60 [facility] Basophils (Bld) [#/Vol] 0.00 10*3/uL [facility] Basophils/100 WBC (Bld) 0 % 0 - 2 % [facility] Differential Type YES [facility] Eosinophils/100 WBC (Bld) 2 % 0 - 5 % [facility] Hematocrit (Bld) [Volume fraction] 34.5 % Low 36 - 46 % [facility] Hemoglobin (Bld) [Mass/Vol] 11.4 g/dL Low 12.0 - 16.0 g/dL [facility] Interpretation and review of laboratory results Abnormal [facility] Lymphocytes/100 WBC (Bld) 23 % 15 - 40 % [facility] MCH (RBC) [Entitic mass] 31.5 pg 26 - 34 pg [facility] MCHC (RBC) [Mass/Vol] 33.0 g/dL 31 - 37 g/dL [facility] MCV (RBC) [Entitic vol] 95.2 fL 80 - 100 fL [facility] Monocytes/100 WBC (Bld) 5 % 4 - 8 % [facility] Platelet distribution width (Bld) [Ratio] 14.1 % 12.1 - 15.2 % [facility] Platelets (Bld) [#/Vol] 428 10*3/uL [facility] RBC (Bld) [#/Vol] 3.63 10*6/uL Low 4.0 - 5.2 m/uL [facility] Segmented neutrophils/100 WBC (Bld) 70 % 47 - 75 % [facility] Segs Absolute 7.50 High [facility] WBC (Bld) [#/Vol] 10.9 10*3/uL [facility] CBC with Diffon 12-21-2022 Abs. Basophil 0.00 k/uL Normal 0.0-0.2 [facility] Comment on above: Performed By: #### C DP, TROPI #### [facility] [address] [place] [address] [place]: Ronaldo Reed MD Abs.Neutrophil (Seg) 7.50 k/uL High 2.5-7.[address] [facility] Comment on above: Performed By: #### C DP, TROPI #### [facility] [address] [place] [id number] [place]: Ronaldo Reed MD Auto Diff Performed YES Normal [facility] Comment on above: Performed By: #### C DP, TROPI #### [facility] [address] [place] [id number] [place]: Ronaldo Reed MD Basophils/100 WBC (Bld) 0 % Normal 0-2 [facility] Comment on above: Performed By: #### C DP, TROPI #### [facility] [address] [id number] [place]: Ronaldo Reed MD Eosinophils (Bld) [#/Vol] 0.30 10*3/uL Normal 0.0-0.4 [facility] Comment on above: Performed By: #### C DP, TROPI #### [facility] [address] [place] [address] [place]: Ronaldo Reed MD Eosinophils/100 WBC (Bld) 2 % Normal 0-5 [facility] Comment on above: Performed By: #### C DP, TROPI #### [facility] [address] [place] [address] [place]: Ronaldo Reed MD Erythrocyte distribution width (RBC) [Ratio] 14.1 % Normal 12.1-15.2 [facility] Comment on above: Performed By: #### C DP, TROPI #### [facility] [address] [place] [address] [place]: Ronaldo Reed MD Hematocrit (Bld) [Volume fraction] 34.5 % Low 36-46 [facility] Comment on above: Performed By: #### C DP, TROPI #### [facility] [address] [place] [address] [place]: Ronaldo Reed MD Hemoglobin (Bld) [Mass/Vol] 11.4 g/dL Low 12.0-16.0 [facility] Comment on above: Performed By: #### C DP, TROPI #### [facility] [address] [place] [address] [place]: Ronaldo Reed MD Lymphocytes (Bld) [#/Vol] 2.50 10*3/uL Normal 1.0-4.8 [facility] Comment on above: Performed By: #### C DP, TROPI #### [facility] [address] [place] [address] [place]: Ronaldo Reed MD Lymphocytes/100 WBC (Bld) 23 % Normal 15-40 [facility] Comment on above: Performed By: #### C DP, TROPI #### [facility] [address] [place] [id number] [place]: Ronaldo Reed MD MCH (RBC) [Entitic mass] 31.5 pg Normal 26-34 [facility] Comment on above: Performed By: #### C DP, TROPI #### [facility] [address] [place] [address] [place]: Ronaldo Reed MD MCHC (RBC) [Mass/Vol] 33.0 g/dL Normal 31-37 [facility] Comment on above: Performed By: #### C DP, TROPI #### [facility] [address] [place] [address] [place]: Ronaldo Reed MD MCV (RBC) [Entitic vol] 95.2 fL Normal 80-100 [facility] Comment on above: Performed By: #### C DP, TROPI #### [facility] [address] [place] [address] [place]: Ronaldo Reed MD Monocytes (Bld) [#/Vol] 0.60 10*3/uL Normal 0.0-1.0 [facility] Comment on above: Performed By: #### C DP, TROPI #### [facility] [address] [place] [address] [place]: Ronaldo Reed MD Monocytes/100 WBC (Bld) 5 % Normal 4-8 [facility] Comment on above: Performed By: #### C DP, TROPI #### [facility] [address] [place] [address] [place]: Ronaldo Reed MD Neutrophil (Seg) 70 % Normal 47-75 [facility] Comment on above: Performed By: #### C DP, TROPI #### [facility] [address] [place] [address] [place]: Ronaldo Reed MD Platelets (Bld) [#/Vol] 428 10*3/uL Normal 140-450 [facility] Comment on above: Performed By: #### C DP, TROPI #### [facility] [address] [place], [place] [id number] [place]: Ronaldo Reed MD RBC (Bld) [#/Vol] 3.63 10*6/uL Low 4.0-5.2 [facility] Comment on above: Performed By: #### C DP, TROPI #### [facility] [address] [place], [place] [id number] [place]: Ronaldo Reed MD WBC (Bld) [#/Vol] 10.9 10*3/uL Normal 3.5-11.0 [facility] Comment on above: Performed By: #### C DP, TROPI #### [facility] [address] [place] [address] [place]: Ronaldo Reed MD EKG Rhythm Stripon 3 [facility] AM [facility] Troponinon 12-21-2022 Interpretation and review of laboratory results Abnormal [facility] Troponin, High Sensitivity 33 ng/L High 0 - 14 ng/L [facility] Comment on above: High Sensitivity Tro ponin values cannot be compared with other Troponin methodologies. [facility] Troponin, High Sens 34 ng/L High 0-14 [facility] Comment on above: Result Comment: High Sensitivity Troponin values cannot be compared with other Troponin methodologies. Performed By: #### C DP, TROPI #### [facility] [address] [place], [place] [id number] [place]: Ronaldo Reed MD Interpretation and review of laboratory results Abnormal [facility] Troponin, High Sensitivity 34 ng/L High 0 - 14 ng/L [facility] Comment on above: High Sensitivity Tro ponin values cannot be compared with other Troponin methodologies. [facility] Troponin, High Sens 48 ng/L High 0-14 [facility] Comment on above: Result Comment: High Sensitivity Troponin values cannot be compared with other Troponin methodologies. Performed By: #### U AX #### [facility] [address] [place] [address] [place]: Ronaldo Reed MD Interpretation and review of laboratory results Abnormal [facility] Troponin, High Sensitivity 48 ng/L High 0 - 14 ng/L [facility] Comment on above: High Sensitivity Tro ponin values cannot be compared with other Troponin methodologies. [facility] UA w/Reflex Cultureon 2022 Bilirubin, SemiQt,Ur Negative Normal NEG [facility] Comment on above: Performed By: #### U AX #### [facility] [address] [place], [place] [id number] [place]: Ronaldo Reed MD Blood, Urine Negative Normal NEG [facility] Comment on above: Performed By: #### U AX #### [facility] [address] [place], [place] [id number] [place]: Ronaldo Reed MD Clarity (U) Clear Normal CLEAR [facility] Comment on above: Performed By: #### U AX #### [facility] [address] [place], [place] [id number] [place]: Ronaldo Reed MD Color (U) Yellow Normal YEL [facility] Comment on above: Performed By: #### U AX #### [facility] [address] [place], [place] [id number] [place]: Ronaldo Reed MD Comment Normal [facility] Comment on above: Performed By: #### U AX #### [facility] [address] [place], [place] [id number] [place]: Ronaldo Reed MD Glucose Ql (U) Negative Normal NEG [facility] Comment on above: Performed By: #### U AX #### [facility] [address] [place] [address] [place]: Ronaldo Reed MD Ketones Ql (U) Negative Normal NEG [facility] Comment on above: Performed By: #### U AX #### [facility] [address] [place] [address] [place]: Ronaldo Reed MD Leukocyte esterase Test strip Ql (U) Negative Normal NEG [facility] Comment on above: Performed By: #### U AX #### [facility] [address] [place] [address] [place]: Ronaldo Reed MD Nitrite,Ur Negative Normal NEG [facility] Comment on above: Performed By: #### U AX #### [facility] [address] [place], [place] [id number] [place]: Ronaldo Reed MD PH,Ur 5.0 Normal 5.0-8.0 [facility] Comment on above: Performed By: #### U AX #### [facility] [address] [place] [address] [place]: Ronaldo Reed MD Protein Ql (U) TRACE Abnormal NEG [facility] Comment on above: Performed By: #### U AX #### [facility] [address] [place] [address] [place]: Ronaldo Reed MD Spec. [place],Ur 1.020 Normal 1.005-1.030 [facility] Comment on above: Performed By: #### U AX #### [facility] [address] [place] [address] [place]: Ronaldo Reed MD Urobilinogen,Ur Normal Normal NORM [facility] Comment on above: Performed By: #### U AX #### [facility] [address] [place], [place] [id number] [place]: Ronaldo Reed MD Urinalysis with Reflex to Cu ltureon 12-21-2022 Bilirubin Urine Negative NEGATIVE [facility] [employer] Color, UA Yellow Yellow [facility] Glucose, Ur Negative NEGATIVE [facility] Interpretation and review of laboratory results Abnormal [facility] Ketones Ql (U) Negative NEGATIVE [facility] Leukocyte esterase Test strip Ql (U) Negative NEGATIVE [facility] Nitrite, Urine Negative NEGATIVE [facility] pH, UA 5.0 5.0 - 8.0 [facility] Protein, UA TRACE Abnormal NEGATIVE [facility] Specific [place], UA 1.020 1.005 - 1.030 [facility] Turbidity UA Clear Clear [facility] Urinalysis Comments [facility] Urine Hgb Negative NEGATIVE [facility] Urobilinogen, Urine Normal Normal [facility] Basic Metabolic Panelon 11-27 Anion gap [Moles/Vol] 10 mmol/L 9 - 17 mmol/L [facility] Calcium [Mass/Vol] 9.6 mg/dL 8.6 - 10. 4 mg/dL [facility] Chloride [Moles/Vol] 101 mmol/L 98 - 10 7 mmol/L [facility] CO2 [Moles/Vol] 29 mmol/L 20 - 31 mmol/L [facility] Creatinine [Mass/Vol] 0.89 mg/dL 0.50 - 0.90 mg/dL [facility] GFR/1.73 sq M.predicted MDRD (S/P/Bld) [Vol rate/Area] - PINF [facility] Comment on above: Effective Aug 28, 2022 [...] 116 mg/dL High 70 - 99 mg/dL [facility] Interpretation and review of laboratory results Abnormal [facility] Potassium [Moles/Vol] 4.2 mmol/L 3.7 - 5.3 mmol/L [facility] Sodium [Moles/Vol] 140 mmol/L 135 - 144 mmol/L [facility] Urea nitrogen (BldV) [Mass/Vol] 34 mg/dL High 8 - 23 mg/dL [facility] Urea nitrogen/Creatinine (Bld) [Mass ratio] 38 High 9 - 20 [facility] Basic Metabolic Profon 12-17 Anion gap [Moles/Vol] 10 mmol/L Normal 9-17 [facility] Comment on above: Performed By: #### U AX #### [facility] [address] [place] [address] [place]: Ronaldo Reed MD BUN/CRE Ratio 38 High 9-20 [facility] Comment on above: Performed By: #### U AX #### [facility] [address] [place], [place] [id number] [place]: Ronaldo Reed MD Calcium [Mass/Vol] 9.6 mg/dL Normal 8.6-10.4 [facility] Comment on above: Performed By: #### U AX #### [facility] [address] [facility] [place] [address] [place]: Ronaldo Reed MD Chloride [Moles/Vol] 101 mmol/L Normal 98-[address] [facility] Comment on above: Performed By: #### U AX #### [facility] [address] [place] [address] [place]: Ronaldo Reed MD CO2 [Moles/Vol] 29 mmol/L Normal 20-31 [facility] Comment on above: Performed By: #### U AX #### [facility] [address] [place] [address] [place]: Ronaldo Reed MD Creatinine [Mass/Vol] 0.89 mg/dL Normal 0.50-0.90 [facility] Comment on above: Performed By: #### U AX #### [facility] [address] [place], [place] [id number] [place]: Ronaldo Reed MD GFR/1.73 sq M.predicted among non-blacks MDRD (S/P/Bld) [Vol rate/Area] mL/min/{1.73_m2} Normal >60 [facility] Comment on above: Result Comment: Effective [...] secretion. Performed By: #### U AX #### [facility] [address] [place] [address] [place]: Ronaldo Reed MD Glucose [Mass/Vol] 116 mg/dL High 70-99 [facility] Comment on above: Performed By: #### U AX #### [facility] [address] [place] [address] [place]: Ronaldo Reed MD Potassium [Moles/Vol] 4.2 mmol/L Normal 3.7-5.3 [facility] Comment on above: Performed By: #### U AX #### [facility] [address] [place] [address] [place]: Ronaldo Reed MD Sodium [Moles/Vol] 140 mmol/L Normal 135-144 [facility] Comment on above: Performed By: #### U AX #### [facility] [address] [place] [address] [place]: Ronaldo Reed MD Urea nitrogen [Mass/Vol] 34 mg/dL High 8-23 [facility] Comment on above: Performed By: #### U AX #### [facility] [address] [place] [address] [place]: Ronaldo Reed MD CBC with Auto Differentialon 12-17-2022 Absolute Eos # 0.60 High [facility] Absolute Lymph # 3.20 [facility] Absolute [place] # 0.80 [facility] Basophils (Bld) [#/Vol] 0.00 10*3/uL [facility] Basophils/100 WBC (Bld) 0 % 0 - 2 % [facility] Differential Type YES [facility] Eosinophils/100 WBC (Bld) 6 % High 0 - 5 % [facility] Hematocrit (Bld) [Volume fraction] 36.6 % 36 - 46 % [facility] Hemoglobin (Bld) [Mass/Vol] 12.1 g/dL 12.0 - 16.0 g/dL [facility] Interpretation and review of laboratory results Abnormal [facility] Lymphocytes/100 WBC (Bld) 30 % 15 - 40 % [facility] MCH (RBC) [Entitic mass] 31.4 pg 26 - 34 pg [facility] MCHC (RBC) [Mass/Vol] 33.0 g/dL 31 - 37 g/dL [facility] MCV (RBC) [Entitic vol] 95.1 fL 80 - 100 fL [facility] Monocytes/100 WBC (Bld) 8 % 4 - 8 % [facility] Platelet distribution width (Bld) [Ratio] 13.9 % 12.1 - 15.2 % [facility] Platelets (Bld) [#/Vol] 390 10*3/uL [facility] RBC (Bld) [#/Vol] 3.85 10*6/uL Low 4.0 - 5.2 m/uL [facility] Segmented neutrophils/100 WBC (Bld) 56 % 47 - 75 % [facility] Segs Absolute 6.00 [facility] WBC (Bld) [#/Vol] 10.6 10*3/uL [facility] CBC with Diffon 12-17-2022 Abs. Basophil 0.00 k/uL Normal 0.0-0.2 [facility] Comment on above: Performed By: #### U AX #### [facility] [address] [place] [address] [place]: Ronaldo Reed MD Abs.Neutrophil (Seg) 6.00 k/uL Normal 2.5-7.[address] [facility] Comment on above: Performed By: #### U AX #### [facility] [address] [place] [address] [place]: Ronaldo Reed MD Auto Diff Performed YES Normal [facility] Comment on above: Performed By: #### U AX #### [facility] [address] [place] [id number] [place]: Ronaldo Reed MD Basophils/100 WBC (Bld) 0 % Normal 0-2 [facility] Comment on above: Performed By: #### U AX #### [facility] [address] [place] [address] [place]: Ronaldo Reed MD Eosinophils (Bld) [#/Vol] 0.60 10*3/uL High 0.0-0.4 [facility] Comment on above: Performed By: #### U AX #### [facility] [address] [place] [id number] [place]: Ronaldo Reed MD Eosinophils/100 WBC (Bld) 6 % High 0-5 [facility] Comment on above: Performed By: #### U AX #### [facility] [address] [place] [address] [place]: Ronaldo Reed MD Erythrocyte distribution width (RBC) [Ratio] 13.9 % Normal 12.1-15.2 [facility] Comment on above: Performed By: #### U AX #### [facility] [address] [place] [address] [place]: Ronaldo Reed MD Hematocrit (Bld) [Volume fraction] 36.6 % Normal 36-46 [facility] Comment on above: Performed By: #### U AX #### [facility] [address] [place] [address] [place]: Ronaldo Reed MD Hemoglobin (Bld) [Mass/Vol] 12.1 g/dL Normal 12.0-16.0 [facility] Comment on above: Performed By: #### U AX #### [facility] [address] [place] [address] [place]: Ronaldo Reed MD Lymphocytes (Bld) [#/Vol] 3.20 10*3/uL Normal 1.0-4.8 [facility] Comment on above: Performed By: #### U AX #### [facility] [address] [place] [address] [place]: Ronaldo Reed MD Lymphocytes/100 WBC (Bld) 30 % Normal 15-40 [facility] Comment on above: Performed By: #### U AX #### [facility] [address] [place] [address] [place]: Ronaldo Reed MD MCH (RBC) [Entitic mass] 31.4 pg Normal 26-34 [facility] Comment on above: Performed By: #### U AX #### [facility] [address] [place] [address] [place]: Ronaldo Reed MD MCHC (RBC) [Mass/Vol] 33.0 g/dL Normal 31-37 [facility] Comment on above: Performed By: #### U AX #### [facility] [address] [place] [address] [place]: Ronaldo Reed MD MCV (RBC) [Entitic vol] 95.1 fL Normal 80-100 [facility] Comment on above: Performed By: #### U AX #### [facility] [address] [place] [address] [place]: Ronaldo Reed MD Monocytes (Bld) [#/Vol] 0.80 10*3/uL Normal 0.0-1.0 [facility] Comment on above: Performed By: #### U AX #### [facility] [address] [place] [address] [place]: Ronaldo Reed MD Monocytes/100 WBC (Bld) 8 % Normal 4-8 [facility] Comment on above: Performed By: #### U AX #### [facility] [address] [place] [address] [place]: Ronaldo Reed MD Neutrophil (Seg) 56 % Normal 47-75 [facility] Comment on above: Performed By: #### U AX #### [facility] [address] [place] [address] [place]: Ronaldo Reed MD Platelets (Bld) [#/Vol] 390 10*3/uL Normal 140-450 [facility] Comment on above: Performed By: #### U AX #### [facility] [address] [place] [address] [place]: Ronaldo Reed MD RBC (Bld) [#/Vol] 3.85 10*6/uL Low 4.0-5.2 [facility] Comment on above: Performed By: #### U AX #### [facility] [address] [place] [address] [place]: Ronaldo Reed MD WBC (Bld) [#/Vol] 10.6 10*3/uL Normal 3.5-11.0 [facility] Comment on above: Performed By: #### U AX #### [facility] [address] [place] [address] [place]: Ronaldo Reed MD CHEMISTRYOrdered By: Lab ROP User on 12-15-2022 Glucose [Mass/Vol] 130 mg/dL High 55 - 99 mg/dL [facility] POC Subsection Comment on above: Result Comment: Blanca allen RN/ POC Device SN [id number] Invalid Interpretation Code [facility] POC Subsection POC User ID [id number] Invalid Interpretation Code [facility] POC Subsection POC Username EDWAR SHUKLAY Invalid Interpretation Code [facility] POC Subsection Glucose [Mass/Vol] 132 mg/dL High 55 - 99 mg/dL [facility] POC Subsection Comment on above: Result Comment: Blanca allen RN/ POC Device SN [id number] Invalid Interpretation Code [facility] POC Subsection POC User ID [id number] Invalid Interpretation Code [facility] POC Subsection POC Username CONSTANCE SHUKLA Invalid Interpretation Code [facility] POC Subsection Glucose [Mass/Vol] 122 mg/dL High 55 - 99 mg/dL [facility] POC Subsection Comment on above: Result Comment: Danitza lizzie Meter POC Device SN [id number] Invalid Interpretation Code [facility] POC Subsection POC User ID [id number] Invalid Interpretation Code [facility] POC Subsection POC Username ROEL NI Invalid Interpretation Code [facility] POC Subsection CHEMISTRYOrdered By: SYSTEM SYSTEM on 12-12-2022 Anion gap [Moles/Vol] 11 mmol/L Normal 6 - 16 mEq/L F C Remisol Calcium [Mass/Vol] 9.2 mg/dL Normal 8.9 - 11. 1 mg/dL [facility] Remisol Chloride [Moles/Vol] 106 mmol/L Normal 101 - 1 11 mmol/L [facility] Rem[facility] CO2 [Moles/Vol] 28 mmol/L Normal 21 - 31 mmol/L [facility] Remisol Creatinine [Mass/Vol] 0.9 mg/dL Normal 0.5 - 1.3 mg/dL [facility] Remisol Glucose [Mass/Vol] 114 mg/dL Normal 55 - 199 mg/dL [facility] Remisol Potassium [Moles/Vol] 4.1 mmol/L Normal 3.5 - 5.3 mmol/L [facility] Remisol Sodium [Moles/Vol] 141 mmol/L Normal 135 - 145 mmol/L [facility] Remisol Troponin I.cardiac [Mass/Vol] 6.30 pg/mL Low 10.10 - 27.10 pg/mL [facility] Remisol Urea nitrogen [Mass/Vol] 34 mg/dL High 5 - 21 mg/dL [facility] Remisol Urea nitrogen/Creatinine [Mass ratio] 38 mg/mg High 10 - 20 [facility] Remisol HEMATOLOGYOrdered By: SYSTEM SYSTEM on 12-12-2022 Basophils/100 [...] Normal 4.0 - 11.0 E9/L [facility] HemeAutoSS MICRO OTHER TESTSOrdered By: oMna Raymundo on 12-12-2022 Influenzae A Ag Negative (12/12/22 7:39 PM) Normal Negative [facility] Man Sero Influenzae B Ag Negative (12/12/22 7:39 PM) Normal Negative [facility] Man Sero Rapid COV Int NEG Ctl Pass (12/12/22 7:39 PM) Normal [facility] Man Sero Rapid COV Int POS Ctl Pass (12/12/22 7:39 PM) Normal [facility] Man Sero SARS-CoV+SARS-CoV-2 (COVID-19) Ag IA.rapid Ql (Resp) Not Detected (12/12/22 7:39 PM) Normal Not Detected [facility] Man Sero URINALYSISOrdered By: Lizzie Raymundo on 12-12-2022 Bilirubin [...] PM) Normal Negative [facility] UA Auto SS [place].plasma/[place] .RBC (Bld) [Mass ratio] 0-3 /HPF Normal 0-3/HPF [facility] UA Auto SS Nitrite Ql (U) Negative (12/12/22 8:38 PM) Normal Negative [facility] UA Auto SS pH (U) 5.0 *NA* (12/12/22 8:38 PM) Invalid Interpretation Code 5.0 - 9.0 [facility] UA Auto SS Protein (U) [Mass/Vol] Negative (12/12/22 8:38 PM) Normal Negative [facility] UA Auto SS Specific gravity (U) [Rel density] 1.020 *NA* (12/12/22 8:38 PM) Invalid Interpretation Code 1.005 - 1.030 [facility] UA Auto SS UA Spec Desc Clean Catch (12/12/22 8:38 PM) Normal [facility] UA Auto SS Urobilinogen Qn (U) 0.5504980 {Pollo'U}/dL Normal 0.0 - 1.0 EU/dL [facility] UA Auto SS WBC Auto Ql (U) Negative (12/12/22 8:38 PM) Normal Negative [facility] UA Auto SS WBC LM.HPF (Urine sed) [#/Area] 0-5 /HPF Normal 0-5/HPF [facility] UA Auto SS XR ANKLE RIGHT (MIN 3 VIEWS) on [...] Karly Arzate MD 12/07/22 Final result Normal [facility] Acute distal fibular fracture. [facility] CONSOLIDATED EXAM: XR ANKLE RIGHT (MIN 3 VIEWS) HISTORY: Reason for exam:->injury COMPARISON: None. TECHNIQUE: 3 views of the right ankle FINDINGS: Acute nondisplaced oblique fracture of the distal fibula is seen. Joint alignment is normal. Joint spaces are preserved. Soft tissue swelling seen about the lateral ankle. Plantar and posterior calcaneal spur is seen. [facility] Karly Arzate MD - 12/07/2022 EXAM: [...] is seen. IMPRESSION: Acute distal fibular fracture. [facility] [employer] Phone: Radiology Study observation (narrative) [facility] [employer] Phone: XR ANKLE RIGHT (MIN 3 VIEWS) Ordered By: Karly Arzate on 12-07-2022 [facility] [employer] Phone: CHEMISTRYOrdered By: SYSTEM SYSTEM on 09-28-2022 Albumin [Mass/Vol] 3.7 g/dL Normal 3.3 - 5.0 gm/dL [facility] Remisol Albumin/Globulin [Mass ratio] 1.1 {ratio} Normal [...] m2 [facility] Chem S Globulin (S) [Mass/Vol] 3.4 g/dL [...] 31.4 pg Normal 27.0 - 34.0 pg [facility] HemeAutoSS MCHC (RBC) [Mass/Vol] 33.5 g/dL Normal 31.4 - 36.0 gm/dL [facility] HemeAutoSS MCV (RBC) [Entitic vol] 93.7 fL Normal 80.0 - 100.0 fL [facility] HemeAutoSS Platelet mean volume (Bld) [Entitic vol] 8.4 fL Normal 6.4 - 10.8 fL [facility] HemeAutoSS Platelets (Bld) [#/Vol] 252.0 E9/L Normal 150.0 - 500.0 E9/L [facility] HemeAutoSS RBC (Bld) [#/Vol] 4.4 E12/L Normal 4.3 - 5.9 E12/L [facility] HemeAutoSS WBC corrected for nucl RBC Auto (Bld) [#/Vol] 11.5 E9/L High 4.0 - 11.0 E9/L [facility] HemeAutoSS CBC Auto Differentialon 07-27 Absolute Eos # 0.50 High [facility] Absolute Lymph # 2.40 [facility] Absolute [place] # 0.60 [facility] RS [facility] Basophils (Bld) [#/Vol] 0.00 10*3/uL [facility] Basophils/100 WBC (Bld) 0 % 0 - 2 % [facility] Differential Type YES [facility] Eosinophils/100 WBC (Bld) 5 % 0 - 5 % [facility] Hematocrit (Bld) [Volume fraction] 37.0 % 36 - 46 % [facility] Hemoglobin (Bld) [Mass/Vol] 12.5 g/dL 12 - 16 g/dL [facility] Interpretation and review of laboratory results Abnormal [facility] Lymphocytes/100 WBC (Bld) 25 % 15 - 40 % [facility] MCH (RBC) [Entitic mass] 31.6 pg 26 - 34 pg [facility] MCHC (RBC) [Mass/Vol] 33.8 g/dL 31 - 37 g/dL B ON [facility] MCV (RBC) [Entitic vol] 93.5 fL 80 - 100 fL [facility] Monocytes/100 WBC (Bld) 6 % 4 - 8 % [facility] Platelet distribution width (Bld) [Ratio] 13.2 % 12.1 - 15.2 % [facility] Platelets (Bld) [#/Vol] 320 10*3/uL [facility] RBC (Bld) [#/Vol] 3.95 10*6/uL Low 4 - 5.2 m/uL [facility] Segmented neutrophils/100 WBC (Bld) 64 % 47 - 75 % [facility] Segs Absolute 5.90 [facility] WBC (Bld) [#/Vol] 9.3 10*3/uL [facility] Comprehensive Metabolic Pane salima 08-08-2022 Albumin [Mass/Vol] 3.6 g/dL 3.5 - 5.2 g/dL [facility] ALP (Bld) [Catalytic activity/Vol] 111 U/L High 35 - 104 U/L [facility] ALT [Catalytic activity/Vol] 20 U/L 5 - 33 U/L [facility] Anion gap [Moles/Vol] 10 mmol/L 9 - 17 mmol/L [facility] AST [Catalytic activity/Vol] 20 U/L NINF - 32 U/L [facility] Bilirubin [Mass/Vol] 0.5 mg/dL 0.3 - 1 .2 mg/dL [facility] Calcium [Mass/Vol] 9.7 mg/dL 8.6 - 10. 4 mg/dL [facility] Chloride [Moles/Vol] 102 mmol/L 98 - 10 7 mmol/L [facility] CO2 [Moles/Vol] 28 mmol/L 20 - 31 mmol/L [facility] Creatinine [Mass/Vol] 0.77 mg/dL 0.5 - 0.9 mg/dL [facility] Free PSA/Total PSA [Mass fraction] 6.7 g/dL 6.4 - 8.3 g/dL [facility] GFR >60 60 - PI NF mL/min [facility] [employer] GFR Non- >60 60 - PINF mL/min [facility] [employer] GFR/1.73 sq M.predicted MDRD (S/P/Bld) [Vol rate/Area] [facility] Comment on above: Average GFR for 70 o r more years old: 75 mL/min/1.73sq m Chronic Kidney Disease: <60 mL/min/1.73sq m Kidney failure: <15 mL/min/1.73sq m eGFR calculated using average adult body mass. Additional eGFR calculator available at: http://www.GuestDriven/multiple_crcl_2012.htm Glucose [Mass/Vol] 126 mg/dL High 70 - 99 mg/dL [facility] Interpretation and review of laboratory results Abnormal [facility] Potassium [Moles/Vol] 4.8 mmol/L 3.7 - 5.3 mmol/L [facility] Sodium [Moles/Vol] 140 mmol/L 135 - 144 mmol/L [facility] [employer] Urea nitrogen (BldV) [Mass/Vol] 22 mg/dL 8 - 23 mg/dL [facility] [employer] Urea nitrogen/Creatinine (Bld) [Mass ratio] 29 High 9 - 20 [facility] Lipid Panelon 08-08-2022 Cholesterol [Mass/Vol] 138 mg/dL NINF - 200 mg/dL [facility] Comment on above: Cholesterol Guidelines: <200 Desirable 200-240 Borderline >240 Undesirable Cholesterol in HDL [Mass/Vol] 42 mg/dL 40 - PINF mg/dL [facility] Comment on above: HDL Guidelines: <40 Undesirable 40-59 Borderline >59 Desirable Cholesterol in LDL [Mass/Vol] 72 mg/dL 0 - 130 mg/dL [facility] Comment on above: LDL Guidelines: <100 Desirable 100-129 Near to/above Desirable 130-159 Borderline >159 Undesirable Direct (measured) LDL and calculated LDL are not interchangeable tests. Cholesterol.total/Chol esterol in HDL [Mass ratio] 3.3 {ratio} NINF - 5 [facility] Triglyceride [Mass/Vol] 122 mg/dL NINF - 150 mg/dL [facility] Comment on above: Triglyceride Guidelines: <150 Desirable 150-199 Borderline 200-499 High >499 Very high Based on AHA Guidelines for fasting triglyceride, August 2012. [facility] [employer] Magnesiumon 08-08-2022 Magnesium [Mass/Vol] 1.7 mg/dL 1.6 - 2 .6 mg/dL [facility] No Panel Informationon 08-08 [facility] Patient Fasting?on 2 Patient Fasting? yes [facility] TSH with Reflexon 08-08-2022 TSH Qn 2.08 m[IU]/L [facility] [employer] Vitamin D 25 Hydroxyon 08-08 Vit D, 25-Hydroxy 40.6 ng/mL 29.9 - PIN F ng/mL [facility] [employer] Comment on above: Reference Range: Vitamin D status Range Deficiency <20 ng/mL Mild Deficiency 20-30 ng/mL Sufficiency 30-100 ng/mL Toxicity >100 ng/mL [facility] [employer] XR CHEST (2 VW)on 08-08-2022 Chronic changes and emphysema, similar. [facility] RIS CONSOLIDATED EXAM: XR CHEST (2 VW) HISTORY: Reason for exam:->a fib, 86-year-old female COMPARISON: Chest 09/12/2021 TECHNIQUE: 2 views chest FINDINGS: Chronic interstitial stranding at the lung bases, stable. Prior sternotomy. Heart size upper normal. Degenerative changes spine. Likely emphysematous overinflation. [facility] Bang Godoy Jr., MD - 08/08/2022 EXAM: XR CHEST (2 VW) HISTORY: Reason for exam:->a fib, 86-year-old female COMPARISON: Chest 09/12/2021 TECHNIQUE: 2 views chest FINDINGS: Chronic interstitial stranding at the lung bases, stable. Prior sternotomy. Heart size upper normal. Degenerative changes spine. Likely emphysematous overinflation. IMPRESSION: Chronic changes and emphysema, similar. [facility] Work Phone: Radiology Study observation (narrative) [facility] [employer] Work Phone: XR CHEST (2 VW)Ordered By: Lyudmila Godoy on 08-08-2022 [facility] [employer] Work Phone: URINALYSISOrdered By: Pola Castaneda on [...] Interpretation Code Negative [facility] UA Auto SS [place].plasma/[place] .RBC (Bld) [Mass ratio] 0-3 /HPF Normal [...] [facility] UA Auto SS Urobilinogen Qn (U) [id number] {Pollo'U}/dL Normal 0.0 - 1.0 EU/dL [facility] [...] rate/Area] mL/min/1.73 m2 Normal >=59mL/min/1 .73 m2 [facility] Chem S GFR/1.73 sq M.predicted among non-blacks MDRD (S/P/Bld) [Vol rate/Area] mL/min/1.73 m2 Normal >=59mL/min/1 .73 m2 [facility] Chem S Globulin (S) [Mass/Vol] 3.3 g/dL [...] 27 mg/dL High 5 - 21 mg/dL [facility] Remisol Urea nitrogen/Creatinine [Mass ratio] 34 mg/mg High 10 - 20 [facility] Remisol CHEMISTRYOrdered By: Josseline Stanley on 06-19-2022 HbA1c (Bld) [Mass fraction] 6.4 % High <=5.9% [facility] ChemAutoSS HEMATOLOGYOrdered By: SYSTEM SYSTEM on 06-19-2022 Basophils/100 WBC (Bld) 0.4 % Normal 0.0 - 2.0 % [facility] HemeAutoSS Basophils/Leukocytes Auto (Bld) [Pure # fraction] [...] 0.7 mg/dL Normal 0.5 - 1.3 mg/dL [facility] Remisol GFR/1.73 sq M.predicted among blacks MDRD (S/P/Bld) [Vol rate/Area] mL/min/1.73 m2 Normal >=59mL/min/1 .73 m2 [facility] Chem S GFR/1.73 sq M.predicted among non-blacks MDRD (S/P/Bld) [Vol rate/Area] mL/min/1.73 m2 Normal >=59mL/min/1 .73 m2 [facility] Chem S Globulin (S) [Mass/Vol] 3.6 g/dL Normal 1.4 - 4.0 gm/dL [facility] Remisol Glucose [Mass/Vol] 135 mg/dL Normal 55 - 199 mg/dL [facility] Remisol Potassium [Moles/Vol] 4.2 mmol/L Normal 3.5 - 5.3 mmol/L [facility]isol Protein [Mass/Vol] 7.1 g/dL Normal 6.0 [...] 5.6 E9/L Normal 2.0 - 7.5 E9/L [facility] HemeAutoSS HEMATOLOGYOrdered By: Fran Stanley on 05-22-2022 Erythrocyte distribution width (RBC) [Ratio] 13.7 % Normal 10.9 - 14.2 % [facility] HemeAutoSS Hematocrit (Bld) [Volume fraction] 37.1 % Normal 34.0 - 46.0 % [facility] HemeAutoSS Hemoglobin (Bld) [Mass/Vol] 12.9 g/dL Normal 12.0 - 16.0 gm/dL [facility] HemeAutoSS MCH (RBC) [Entitic mass] 32.7 pg Normal 27.0 - 34.0 pg [facility] HemeAutoSS MCHC (RBC) [Mass/Vol] 34.9 g/dL Normal 31.4 - 36.0 gm/dL [facility] HemeAutoSS MCV (RBC) [Entitic vol] 93.7 fL Normal 80.0 - 100.0 fL [facility] HemeAutoSS Platelet mean volume (Bld) [Entitic vol] 7.5 fL Normal 6.4 - 10.8 fL [facility] HemeAutoSS Platelets (Bld) [#/Vol] 274.0 E9/L Normal 150.0 - 500.0 E9/L [facility] HemeAutoSS RBC (Bld) [#/Vol] 4.0 E12/L Low 4.3 - 5.9 E12/L [facility] HemeAutoSS Sed Rate Automated 18 mm/h Normal 0 - 34 mm/hr [facility] HemeAutoSS WBC corrected for nucl RBC Auto (Bld) [#/Vol] 9.6 E9/L Normal 4.0 - 11.0 E9/L [facility] HemeAutoSS No Panel Informationon 05-03 Chondrocalcinosis and degenerative changes. [facility] EXAM: XR WRIST RIGHT (MIN 3 [...] Mild radiocarpal joint space narrowing. No fracture. [facility] Bang Godoy Jr., MD - 05/03/2022 [...] No fracture. IMPRESSION: Chondrocalcinosis and degenerative changes. [employer] Phone: No Panel InformationOrdered By: Bang Godoy on 05-03-2022 [facility] Phone: XR WRIST LEFT (MIN 3 VIEWS)o n 05-03-2022 Radiology Study observation (narrative) [facility] Phone: XR WRIST RIGHT (MIN 3 VIEWS) on 05-03-2022 Radiology Study observation (narrative) [facility] Phone: CHEMISTRYOrdered By: SYSTEM SYSTEM on 02-14-2022 [...] rate/Area] mL/min/1.73 m2 Normal >=59mL/min/1 .73 m2 [facility] Chem S Globulin (S) [Mass/Vol] 3.1 g/dL Normal 1.4 - 4.0 gm/dL [facility] Remisol Glucose [Mass/Vol] 126 mg/dL Normal 55 - 199 mg/dL [facility] Remisol Potassium [Moles/Vol] 4.7 mmol/L Normal 3.5 - 5.3 mmol/L [facility] Remisol Protein [Mass/Vol] 6.8 g/dL Normal 6.0 - 7.8 gm/dL [facility] Remisol Sodium [Moles/Vol] 137 mmol/L Normal 135 - 145 mmol/L [facility] Remisol Urea nitrogen [Mass/Vol] 20 mg/dL Normal [...] 50.1 % Normal 36.0 - 75.0 % [facility] HemeAutoSS Neutrophils/Leukocytes Auto (Bld) [Pure # fraction] 4.6 E9/L Normal 2.0 - 7.5 E9/L [facility] HemeAutoSS HEMATOLOGYOrdered By: Lauren Gillespie on 02-14-2022 Erythrocyte distribution width (RBC) [Ratio] 13.8 % Normal 10.9 - 14.2 % [facility] HemeAutoSS Hematocrit (Bld) [Volume fraction] 37.8 % Normal 34.0 - 46.0 % [facility] HemeAutoSS Hemoglobin (Bld) [Mass/Vol] 13.0 g/dL Normal 12.0 - 16.0 gm/dL [facility] HemeAutoSS MCH (RBC) [Entitic mass] 31.8 pg Normal 27.0 - 34.0 pg [facility] HemeAutoSS MCHC (RBC) [Mass/Vol] 34.6 g/dL Normal 31.4 - 36.0 gm/dL [facility] HemeAutoSS MCV (RBC) [Entitic vol] 91.9 fL Normal 80.0 - 100.0 fL [facility] HemeAutoSS Platelet mean volume (Bld) [Entitic vol] 7.8 fL Normal 6.4 - 10.8 fL [facility] HemeAutoSS Platelets (Bld) [#/Vol] 289.0 E9/L Normal 150.0 - 500.0 E9/L [facility] HemeAutoSS RBC (Bld) [#/Vol] 4.1 E12/L Low 4.3 - 5.9 E12/L [facility] HemeAutoSS Sed Rate Automated 14 mm/h Normal 0 - 34 mm/hr [facility] HemeAutoSS WBC corrected for nucl RBC Auto (Bld) [#/Vol] 9.2 E9/L Normal 4.0 - 11.0 E9/L [facility] HemeAutoSS CHEMISTRYOrdered By: SYSTEM SYSTEM on 12-14-2021 [...] Normal 0.5 - 1.3 mg/dL [facility] Remisol GFR/1.73 sq M.predicted among blacks MDRD (S/P/Bld) [Vol rate/Area] mL/min/1.73 m2 Normal >=59mL/min/1 .73 m2 [facility] Chem S GFR/1.73 sq M.predicted among non-blacks MDRD (S/P/Bld) [Vol rate/Area] 60 mL/min/1.73 m2 Normal >=59mL/min/1 .73 m2 [facility] Chem S Globulin (S) [Mass/Vol] 3.2 g/dL Normal 1.4 - 4.0 gm/dL [facility] Remisol Glucose [Mass/Vol] 125 mg/dL Normal 55 - 199 mg/dL [facility] Remisol Potassium [Moles/Vol] 4.2 mmol/L Normal 3.5 - 5.3 mmol/L FT [...] 7.7 fL Normal 6.4 - 10.8 fL [facility] HemeAutoSS Platelets (Bld) [#/Vol] 295.0 E9/L Normal 150.0 - 500.0 E9/L [facility] HemeAutoSS RBC (Bld) [#/Vol] 4.2 E12/L Low 4.3 - 5.9 E12/L [facility] HemeAutoSS WBC corrected for nucl RBC Auto (Bld) [#/Vol] 7.5 E9/L Normal 4.0 - 11.0 E9/L [facility] HemeAutoSS HEMATOLOGYOrdered By: Daisy Diego on 12-14-2021 Sed Rate Automated 13 mm/h Normal 0 - 34 mm/hr [facility] HemeAutoSS XR LUMBAR SPINE (MIN 4 VIEWS )on 10-02-2021 No acute lumbar spine findings. Chronic changes are described above. If the patient has focal tenderness, further evaluation with MRI is recommended. [facility] EXAM: XR LUMBAR SPINE (MIN 4 [...] There are dense aortic calcifications without aneurysm. [facility] Armand Chen MD - 10/02/2021 EXAM: [...] tenderness, further evaluation with MRI is recommended. [employer] Phone: [employer] Phone: Radiology Study observation (narrative) [employer] Phone: XR THORACIC SPINE (3 VIEWS)o n [...] is seen in the lower cervical spine. [facility] Armand Myirck MD - 10/02/2021 EXAM: XR THORACIC SPINE [...] CT scan or MRI could be considered. [employer] Phone: Radiology Study observation (narrative) [employer] Phone: XR THORACIC SPINE (3 VIEWS)O rdered By: Armand Chen on 10-02-2021 [employer] Phone: CBC Auto DifferentialOrdered By: Emiliano Deng on 09-12-2021 Absolute Eos # 0.20 [employer] Phone: Absolute Immature Granulocyte NOT REPORTED [employer] Phone: Absolute Lymph # 1.70 [employer] [facility] Work Phone: Absolute [place] # 0.40 [employer] [facility] Work Phone: Basophils (Bld) [#/Vol] 0.00 10*3/uL [email or web address] Work Phone: Basophils/100 WBC (Bld) 0 % 0 - 2 % [email or web address] Work Phone: Differential Type YES [employer] Work Phone: Eosinophils/100 WBC (Bld) 3 % 0 - 5 % [employer] Phone: Hematocrit (Bld) [Volume fraction] 37.3 % 36 - 46 % [email or web address] Work Phone: Hemoglobin.gastrointes tinal spec 1 Ql (Stl) 12.5 g/dL 12.0 - 16.0 g/dL [email or web address] Work Phone: Immature Granulocytes NOT REPORTED 0 % [employer] Work Phone: Interpretation and review of laboratory results Abnormal [employer] Phone: Lymphocytes/100 WBC (Bld) 27 % 15 - 40 % [employer] Phone: MCH (RBC) [Entitic mass] 31.7 pg 26 - 34 pg [email or web address] Work Phone: MCHC (RBC) [Mass/Vol] 33.4 g/dL 31 - 37 g/dL [employer] Phone: MCV (RBC) [Entitic vol] 94.9 fL 80 - 100 fL [email or web address] Work Phone: Monocytes/100 WBC (Bld) 6 % 4 - 8 % [employer] Phone: NRBC Automated NOT REPORTED per 100 WBC [facility] Work Phone: Platelet distribution width (Bld) [Ratio] 14.1 % 12.1 - 15.2 % [employer] Phone: Platelet Estimate NOT REPORTED [employer] Phone: Platelet mean volume (Bld) [Entitic vol] NOT REPORTED 6.0 - 12.0 fL [email or web address] Work Phone: Platelets (Bld) [#/Vol] 311 10*3/uL [email or web address] Work Phone: RBC (Bld) [#/Vol] 3.93 10*6/uL Low 4.0 - 5.2 m/uL [employer] Phone: RBC (Bld) [#/Vol] NOT REPORTED [employer] Phone: Segmented neutrophils/100 WBC (Bld) 64 % 47 - 75 % [email or web address] Work Phone: Segs Absolute 4.20 [employer] Work Phone: WBC (Bld) [#/Vol] 6.6 10*3/uL [email or web address] Work Phone: WBC (Bld) [#/Vol] NOT REPORTED [employer] Phone: [employer] Phone: Comprehensive Metabolic Pane lOrdered By: Emiliano Deng on 09-12-2021 Albumin [Mass/Vol] 3.7 g/dL 3.5 - 5.2 g/dL [employer] Phone: Albumin/Globulin Ratio NOT REPORTED [employer] Phone: ALP (Bld) [Catalytic activity/Vol] 95 U/L 35 - 104 U/L [email or web address] Work Phone: ALT [Catalytic activity/Vol] 17 U/L 5 - 33 U/L [email or web address] Work Phone: Anion gap [Moles/Vol] 9 mmol/L 9 - 17 mmol/L [employer] Phone: AST [Catalytic activity/Vol] 16 U/L <32 [employer] Phone: Bilirubin [Mass/Vol] 0.48 mg/dL 0.30 - 1.20 mg/dL [employer] Phone: Calcium [Mass/Vol] 9.1 mg/dL 8.6 - 10. 4 mg/dL [employer] Phone: Chloride [Moles/Vol] 105 mmol/L 98 - 10 7 mmol/L [employer] Phone: CO2 [Moles/Vol] 26 mmol/L 20 - 31 mmol/L [employer] Phone: Creatinine [Mass/Vol] 0.64 mg/dL 0.50 - 0.90 mg/dL [employer] Phone: Free PSA/Total PSA [Mass fraction] 6.7 g/dL 6.4 - 8.3 g/dL [employer] Phone: GFR >60 >60 mL/min [employer] Phone: GFR Non- >60 >60 mL/min [employer] Phone: GFR/1.73 sq M.predicted MDRD (S/P/Bld) [Vol rate/Area] [employer] Phone: Comment on above: Average GFR for 70 o r more years old: 75 mL/min/1.73sq m Chronic Kidney Disease: <60 mL/min/1.73sq m Kidney failure: <15 mL/min/1.73sq m eGFR calculated using average adult body mass. Additional eGFR calculator available at: http://www.[employer].DRESSBOOM/multiple_crcl_2012.htm GFR/1.73 sq M.predicted MDRD (S/P/Bld) [Vol rate/Area] NOT REPORTED [employer] Phone: Glucose [Mass/Vol] 128 mg/dL High 70 - 99 mg/dL [employer] Phone: Interpretation and review of laboratory results Abnormal [employer] Phone: Potassium [Moles/Vol] 3.6 mmol/L Low 3.7 - 5.3 mmol/L [employer] Phone: Sodium [Moles/Vol] 140 mmol/L 135 - 144 mmol/L [employer] Phone: Urea nitrogen (BldV) [Mass/Vol] 14 mg/dL 8 - 23 mg/dL [employer] Phone: Urea nitrogen/Creatinine (Bld) [Mass ratio] 22 High [employer] Phone: Lipid PanelOrdered By: Emiliano Deng on 09-12-2021 Cholesterol [Mass/Vol] 138 mg/dL <200 [employer] Phone: Comment on above: Cholesterol Guidelines: <200 Desirable 200-240 Borderline >240 Undesirable Cholesterol in HDL [Mass/Vol] 55 mg/dL >40 [employer] Phone: Comment on above: HDL Guidelines: <40 Undesirable 40-59 Borderline >59 Desirable Cholesterol in LDL [Mass/Vol] 63 mg/dL 0 - 130 mg/dL [employer] Phone: Comment on above: LDL Guidelines: <100 Desirable 100-129 Near to/above Desirable 130-159 Borderline >159 Undesirable Direct (measured) LDL and calculated LDL are not interchangeable tests. Cholesterol in VLDL [Mass/Vol] NOT REPORTED 1 - 30 mg/dL [employer] Phone: Cholesterol.total/Chol esterol in HDL [Mass ratio] 2.5 {ratio} <5 [employer] Phone: Triglyceride [Mass/Vol] 101 mg/dL <150 [employer] Phone: Comment on above: Triglyceride Guidelines: <150 Desirable 150-199 Borderline 200-499 High >499 Very high Based on AHA Guidelines for fasting triglyceride, August 2012. [employer] Phone: MagnesiumOrdered By: Emiliano nam on 09-12-2021 Magnesium [Mass/Vol] 1.7 mg/dL 1.6 - 2 .6 mg/dL [employer] Phone: No Panel InformationOrdered By: Emiliano Deng on 09-12-2021 [employer] Phone: Patient Fasting?Ordered By: Emiliano Deng on 09-12-2021 Patient Fasting? yes [employer] Work Phone: [employer] Phone: TSH with ReflexOrdered By: Lloyd Deng on 09-12-2021 TSH Qn 1.77 m[IU]/L [employer] Phone: Vitamin D 25 HydroxyOrdered By: Emiliano Deng on 09-12-2021 Vit D, 25-Hydroxy 35.6 ng/mL 30.0 - 100 .0 ng/mL [employer] Phone: Comment on above: Reference Range: Vitamin D status Range Deficiency <20 ng/mL Mild Deficiency 20-30 ng/mL Sufficiency 30-100 ng/mL Toxicity >100 ng/mL [employer] Phone: XR CHEST (2 VW)Ordered By: Lloyd Deng on 09-12-2021 COPD with mild nonspecific reticular opacities at the lung bases favoring atelectasis and/or fibrotic scarring. The lungs appear otherwise clear. [employer] Phone: EXAM: XR CHEST (2 VW) HISTORY: [...] hardware near the cervicothoracic junction appears unchanged. [employer] Phone: Anupam, [facility] Incoming Radiant Results From [employer] - 09/12/2021 12:29 PM EDT EXAM: XR [...] fibrotic scarring. The lungs appear otherwise clear. [employer] Phone: [employer] Phone: CHEMISTRYOrdered By: SYSTEM SYSTEM on 08-24-2021 [...] rate/Area] mL/min/1.73 m2 Normal >=59mL/min/1 .73 m2 [facility] Chem S Globulin (S) [Mass/Vol] 3.0 g/dL [...] 6.0 E9/L Normal 2.0 - 7.5 E9/L [facility] HEMATOLOGYOrdered By: Derrick Rios on 08-24-2021 [...] LEFTOrdered By: Xena Andrews on 06-13-2021 Anupam, [facility] Incoming Cardio Results From [facility] - 06/14/2021 8:21 AM EDT [facility] Vascular Lower Extremities DVT Study Procedure Patient Name BRIDGET Date of Study 06/13/2021 ALEENA Dixon Date of 1935 Gender Female Age 85 year(s) Race Room Number Corporate ID # [id number] Patient MR # [id number] Information Technology Director Kiya Forte, RT Interpreting Physician Heri Godoy [...] left groin through popliteal v. Signature ---- Electronically signed by RT Veronica(Hoang)(M)(CT)([facility])(S onographer) on 06/13/2021 01:40 PM ---- ---- ---- Left Impression: CFV, DFV, [...] !None ! + +-- --------+ ----+ + [employer] Phone: [employer] Phone: XR HIP 2-3 VW W PELVIS LEFTO rdered By: Xena Andrews on 06-11-2021 1. Mild to moderate degenerative changes are noted in both hips. 2. No fracture or dislocation is identified. 3. Atherosclerosis. [employer] Phone: PELVIS AND LEFT HIP RADIOGRAPH 06/11/2021 [...] lumbar spine. Extensive atherosclerotic changes are noted. [employer] Phone: Anupam, pn Incoming Radiant Results From [employer] - 06/11/2021 9:34 AM EDT PELVIS AND [...] fracture or dislocation is identified. 3. Atherosclerosis. [employer] Phone: [employer] Phone: XR CERVICAL SPINE (4-5 VIEWS )Ordered By: Merissa Donald on 06-09-2021 Degenerative changes with intact fusion lower cervical spine. [employer] Phone: EXAM: XR CERVICAL SPINE (4-5 VIEWS) [...] for age. Lung apices clear. Odontoid normal. [employer] Phone: Anupam, pn Incoming Radiant Results From [employer] - 06/09/2021 11:40 AM EDT EXAM: XR [...] changes with intact fusion lower cervical spine. [employer] Phone: [employer] Phone: CT HEAD WO CONTRASTon 2020 Right supraorbital scalp hematoma. No skull fracture or intracranial hemorrhage. [employer] Phone: EXAMINATION: CT HEAD WO CONTRAST HISTORY: [...] show no fracture. Multiplanar reconstructions otherwise negative. [employer] Phone: Anupam, [facility] Incoming Radiant Results From [employer] - 03/08/2021 12:50 PM EDT EXAMINATION: CT [...] hematoma. No skull fracture or intracranial hemorrhage. [employer] Phone: MRI lumbar spine without con traston 02-03-2021 Significant severe spinal canal stenosis at L3-L4, L4-L5 and L5-S1 caused by discogenic disease and facet arthropathy as detailed above. [employer] Phone: LUMBAR MRI HISTORY: Low back pain [...] deformity at L1. Distal cord appears unremarkable. [employer] Phone: Anupam, M[facility]pn Incoming Radiant Results From [employer] - 02/03/2021 1:21 PM EST LUMBAR MRI [...] disease and facet arthropathy as detailed above. [email or web address] Work Phone: XR KNEE RIGHT (MIN 4 VIEWS)o n 10-06-2020 Severe osteoarthritic changes right knee. Moderate degenerative change left knee. [place] EXAM: XR KNEE RIGHT (MIN 4 [...] not as severe as on the right. [place] Anupam, [facility] Incoming Radiant Results From [employer] - 10/06/2020 6:40 PM EST EXAM: XR [...] right knee. Moderate degenerative change left knee. [place] CBC Auto Differentialon 08-26 Basophils (Bld) [#/Vol] 0.00 10*3/uL [place] Basophils/100 WBC (Bld) 0 % 0 - 2 % [place] Differential Type YES [place] Eosinophils (Bld) [#/Vol] 0.30 10*3/uL [place] Eosinophils/100 WBC (Bld) 3 % 0 - 5 % [place] Erythrocyte distribution width (RBC) [Ratio] 13.9 % 12.1 - 15.2 % [place] Hematocrit (Bld) [Volume fraction] 40.0 % 36 - 46 % [place] Hemoglobin (Bld) [Mass/Vol] 13.5 g/dL 12 - 16 g/dL [place] Lymphocytes (Bld) [#/Vol] 2.60 10*3/uL [place] Lymphocytes/100 WBC (Bld) 32 % 15 - 40 % [place] MCH (RBC) [Entitic mass] 31.4 pg 26 - 34 pg [place] MCHC (RBC) [Mass/Vol] 33.7 g/dL 31 - 37 g/dL [place] MCV (RBC) [Entitic vol] 93.1 fL 80 - 100 fL [place] Monocytes (Bld) [#/Vol] 0.50 10*3/uL [place] Monocytes/100 WBC (Bld) 7 % 4 - 8 % [place] Platelet mean volume (Bld) [Entitic vol] NOT REPORTED 6 - 12 fL [place] Platelets (Bld) [#/Vol] 266 10*3/uL [place] Platelets (Bld) [#/Vol] NOT REPORTED [place] RBC (Bld) [#/Vol] 4.29 10*6/uL 4 - 5.2 m/uL [place] RBC morphology finding Nom (Bld) NOT REPORTED [place] Segmented neutrophils/100 WBC (Bld) 58 % 47 - 75 % [place] Segs Absolute 4.70 [place] WBC (Bld) [#/Vol] 8.2 10*3/uL [place] WBC (Bld) [#/Vol] NOT REPORTED per 100 WBC [place] WBC Morphology NOT REPORTED [place], [place] Comprehensive Metabolic Pane salima 09-13-2020 Albumin [Mass/Vol] 4.3 g/dL 3.5 - 5.2 g/dL [place] Albumin/Globulin [Mass ratio] NOT REPORTED [place] ALP [Catalytic activity/Vol] 99 U/L 35 - 104 U/L [place] ALT [Catalytic activity/Vol] 22 U/L 5 - 33 U/L [place] Anion gap [Moles/Vol] 11 mmol/L 9 - 17 mmol/L [place] AST [Catalytic activity/Vol] 22 U/L <32 [place] Bilirubin Ql (U) 0.73 mg/dL 0.3 - 1.2 mg/dL [place] Bun/Cre Ratio 25 High [place] Calcium [Mass/Vol] 9.7 mg/dL 8.6 - 10. 4 mg/dL [place] Chloride [Moles/Vol] 103 mmol/L 98 - 10 7 mmol/L [place] CO2 [Moles/Vol] 26 mmol/L 20 - 31 mmol/L [place] Creatinine [Mass/Vol] 0.77 mg/dL 0.5 - 0.9 mg/dL [place] GFR >60 >60 mL/min [place] GFR Non- >60 >60 mL/min [place] GFR/1.73 sq M predicted among non-blacks MDRD (S/P/Bld) [Vol rate/Area] NOT REPORTED [place] GFR/1.73 sq M predicted among non-blacks MDRD (S/P/Bld) [Vol rate/Area] [place] Comment on above: Average GFR for 70 o r more years old: 75 mL/min/1.73sq m Chronic Kidney Disease: <60 mL/min/1.73sq m Kidney failure: <15 mL/min/1.73sq m eGFR calculated using average adult body mass. Additional eGFR calculator available at: http://www.[employer].DRESSBOOM/multiple_crcl_2012.htm Glucose [Mass/Vol] 139 mg/dL High 70 - 99 mg/dL [place] Interpretation and review of laboratory results Abnormal [place] Potassium [Moles/Vol] 4.1 mmol/L 3.7 - 5.3 mmol/L [place] Protein [Mass/Vol] 7.7 g/dL 6.4 - 8.3 g/dL [place] Sodium [Moles/Vol] 140 mmol/L 135 - 144 mmol/L [place] Urea nitrogen [Mass/Vol] 19 mg/dL 8 - 23 mg/dL [place] Lipid Panelon 09-13-2020 Cholesterol [Mass/Vol] 150 mg/dL <200 [place] Comment on above: Cholesterol Guidelines: <200 Desirable 200-240 Borderline >240 Undesirable Cholesterol in HDL [Mass/Vol] 49 mg/dL >40 [place] Comment on above: HDL Guidelines: <40 Undesirable 40-59 Borderline >59 Desirable Cholesterol in LDL [Mass/Vol] 67 mg/dL 0 - 130 mg/dL [place] Comment on above: LDL Guidelines: <100 Desirable 100-129 Near to/above Desirable 130-159 Borderline >159 Undesirable Direct (measured) LDL and calculated LDL are not interchangeable tests. Cholesterol in VLDL [Mass/Vol] NOT REPORTED High 1 - 30 mg/dL [place] Cholesterol.total/Chol esterol in HDL [Mass ratio] 3.1 {ratio} <5 [place] Interpretation and review of laboratory results Abnormal [place] Triglyceride [Mass/Vol] 171 mg/dL High <150 [place] Comment on above: Triglyceride Guidelines: <150 Desirable 150-199 Borderline 200-499 High >499 Very high Based on AHA Guidelines for fasting triglyceride, August 2012. Magnesiumon 09-13-2020 Magnesium [Mass/Vol] 1.9 mg/dL 1.6 - 2 .6 mg/dL [place] Otheron 09-13-2020 Immature granulocytes (Bld) [#/Vol] NOT REPORTED 0 % [place] Patient Fasting?on 0 Patient Fasting? YES [place] TSH with Reflexon 09-13-2020 TSH Qn 2.67 m[IU]/L [place] Vitamin D 25 Hydroxyon 09-13 Vit D, 25-Hydroxy 34.7 ng/mL 30 - 100 ng/mL [place] Comment on above: Reference Range: Vitamin D status Range Deficiency <20 ng/mL Mild Deficiency 20-30 ng/mL Sufficiency 30-100 ng/mL Toxicity >100 ng/mL XR CHEST (2 VW)on 09-13-2020 Cardiomegaly, ASVD, pulmonary hyperinflation with the probable underlying COPD. [place] EXAM: XR CHEST (2 VW) HISTORY: [...] low cervical metallic plate fusion is noted. [place] Anupam, [facility] Incoming Radiant Results From [employer] - 09/13/2020 11:58 AM EDT EXAM: XR [...] pulmonary hyperinflation with the probable underlying COPD. [place] CBC Auto Differentialon 12-0 Basophils (Bld) [#/Vol] 0.00 10*3/uL [place] Basophils/100 WBC (Bld) 0 % 0 - 2 % [place] Differential Type YES [facility] [place] Eosinophils (Bld) [#/Vol] 0.40 10*3/uL [place] Eosinophils/100 WBC (Bld) 6 % High 0 - 5 % [place] Erythrocyte distribution width (RBC) [Ratio] 13.7 % 12.1 - 15.2 % [place] Hematocrit (Bld) [Volume fraction] 39.4 % 36 - 46 % [place] Hemoglobin (Bld) [Mass/Vol] 13.4 g/dL 12 - 16 g/dL [place] Interpretation and review of laboratory results Abnormal [place] Lymphocytes (Bld) [#/Vol] 3.00 10*3/uL [place] Lymphocytes/100 WBC (Bld) 40 % 15 - 40 % [place] MCH (RBC) [Entitic mass] 32.3 pg 26 - 34 pg [place] MCHC (RBC) [Mass/Vol] 34.0 g/dL 31 - 37 g/dL [place] MCV (RBC) [Entitic vol] 95.0 fL 80 - 100 fL [place] Monocytes (Bld) [#/Vol] 0.60 10*3/uL [place] Monocytes/100 WBC (Bld) 8 % 4 - 8 % [place] Platelet mean volume (Bld) [Entitic vol] NOT REPORTED 6 - 12 fL [place] Platelets (Bld) [#/Vol] 243 10*3/uL [place] Platelets (Bld) [#/Vol] NOT REPORTED [place] RBC (Bld) [#/Vol] 4.15 10*6/uL 4 - 5.2 m/uL [place] RBC morphology finding Nom (Bld) NOT REPORTED [place] Segmented neutrophils/100 WBC (Bld) 46 % Low 47 - 75 % [place] Segs Absolute 3.60 [place] WBC (Bld) [#/Vol] NOT REPORTED per 100 WBC [place] WBC (Bld) [#/Vol] 7.7 10*3/uL [place] WBC Morphology NOT REPORTED [place] Comprehensive Metabolic Pane salima 10-27-2019 Albumin [Mass/Vol] 4.2 g/dL 3.5 - 5.2 g/dL [place] Albumin/Globulin [Mass ratio] NOT REPORTED [place] ALP [Catalytic activity/Vol] 107 U/L High 35 - 104 U/L [place] ALT [Catalytic activity/Vol] 21 U/L 5 - 33 U/L [place] Anion gap [Moles/Vol] 15 mmol/L 9 - 17 mmol/L [place] AST [Catalytic activity/Vol] 17 U/L <32 [place] Bilirubin Ql (U) 0.67 mg/dL 0.3 - 1.2 mg/dL [place] Bun/Cre Ratio 20 [place] Calcium [Mass/Vol] 10.0 mg/dL 8.6 - 10. 4 mg/dL [place] Chloride [Moles/Vol] 104 mmol/L 98 - 10 7 mmol/L [place] CO2 [Moles/Vol] 23 mmol/L 20 - 31 mmol/L [place] Creatinine [Mass/Vol] 0.71 mg/dL 0.5 - 0.9 mg/dL [place] GFR >60 >60 mL/min [place] GFR Non- >60 >60 mL/min [place] GFR/1.73 sq M predicted among non-blacks MDRD (S/P/Bld) [Vol rate/Area] NOT REPORTED [place] GFR/1.73 sq M predicted among non-blacks MDRD (S/P/Bld) [Vol rate/Area] [place] Comment on above: Average GFR for 70 o r more years old: 75 mL/min/1.73sq m Chronic Kidney Disease: <60 mL/min/1.73sq m Kidney failure: <15 mL/min/1.73sq m eGFR calculated using average adult body mass. Additional eGFR calculator available at: http://www.[employer].DRESSBOOM/multiple_crcl_2012.htm Glucose [Mass/Vol] 136 mg/dL High 70 - 99 mg/dL [place] Interpretation and review of laboratory results Abnormal [place] Potassium [Moles/Vol] 3.6 mmol/L Low 3.7 - 5.3 mmol/L [place] Protein [Mass/Vol] 7.6 g/dL 6.4 - 8.3 g/dL [place] Sodium [Moles/Vol] 142 mmol/L 135 - 144 mmol/L [place] Urea nitrogen [Mass/Vol] 14 mg/dL 8 - 23 mg/dL [place] Lipid Panelon 10-27-2019 Cholesterol [Mass/Vol] 152 mg/dL <200 [place] Comment on above: Cholesterol Guidelines: <200 Desirable 200-240 Borderline >240 Undesirable Cholesterol in HDL [Mass/Vol] 59 mg/dL >40 [place] Comment on above: HDL Guidelines: <40 Undesirable 40-59 Borderline >59 Desirable Cholesterol in LDL [Mass/Vol] 70 mg/dL 0 - 130 mg/dL [place] Comment on above: LDL Guidelines: <100 Desirable 100-129 Near to/above Desirable 130-159 Borderline >159 Undesirable Direct (measured) LDL and calculated LDL are not interchangeable tests. Cholesterol in VLDL [Mass/Vol] NOT REPORTED 1 - 30 mg/dL [place] Cholesterol.total/Chol esterol in HDL [Mass ratio] 2.6 {ratio} <5 [place] Triglyceride [Mass/Vol] 114 mg/dL <150 [place] Comment on above: Triglyceride Guidelines: <150 Desirable 150-199 Borderline 200-499 High >499 Very high Based on AHA Guidelines for fasting triglyceride, August 2012. Magnesiumon 10-27-2019 Magnesium [Mass/Vol] 1.9 mg/dL 1.6 - 2 .6 mg/dL [place] Otheron 10-27-2019 Immature granulocytes (Bld) [#/Vol] NOT REPORTED [place] Patient Fasting?on 9 Patient Fasting? YES [place] TSH with Reflexon 10-27-2019 TSH Qn 2.50 m[IU]/L [place] Vitamin D 25 Hydroxyon 10-27 Interpretation and review of laboratory results Abnormal [place] Vit D, 25-Hydroxy 6.4 ng/mL Low 30 - 100 ng/mL [place] Comment on above: Reference Range: Vitamin D status Range Deficiency <20 ng/mL Mild Deficiency 20-30 ng/mL Sufficiency 30-100 ng/mL Toxicity >100 ng/mL Vital Signs Date Time Vital Sign Value Performing Clinician Facility 01-03-2024 13:10-0500 Body height 167.6 cm Keena Mcguire DO Work Phone: [facility] 01-03-2024 13:10-0500 Body mass index (BMI) [Ratio] 37.93 kg/m2 Keena Mcguire DO Work Phone: [facility] 01-03-2024 13:10-0500 Body weight 106.59 kg Keena Mcguire DO Work Phone: [facility] 01-03-2024 13:04-0500 Body temperature 97.39 [degF] Keena Mcguire DO Work Phone: [facility] 12-26-2022 09:18-0500 Respiratory rate 18 /min Андрей Rodriguez MD Work Phone: [facility] 12-26-2022 07:32-0500 Body temperature 97.9 [degF] Андрей Rodriguez MD Work Phone: [facility] 12-26-2022 07:32-0500 Diastolic blood pressure 66 mm[Hg] Андрей Rodriguez MD Work Phone: [facility] 12-26-2022 07:32-0500 Heart rate 85 /min Андрей Rodriguez MD Work Phone: [facility] 12-26-2022 07:32-0500 SaO2% (BldA) [Mass fraction] 99 % Андрей Rodriguez MD Work Phone: [facility] 12-26-2022 07:32-0500 Systolic blood pressure 133 mm[Hg] Андрей Rodriguez MD Work Phone: [facility] 12-25-2022 01:15-0500 Body mass index (BMI) [Ratio] 40.96 kg/m2 Андрей Rodriguez MD Work Phone: [facility] 12-25-2022 01:15-0500 Body weight 115.12 kg Андрей Rodriguez MD Work Phone: [facility] 12-18-2022 07:27-0500 Body height 167.6 cm Андрей Rodriguez MD Work Phone: [facility] 12-15-2022 20:36-0500 Diastolic blood pressure 73 mm[Hg] [facility] 12-15-2022 20:36-0500 Mean blood pressure 89 mm[Hg] [facility] 12-15-2022 20:36-0500 Systolic blood pressure 122 mm[Hg] [facility] 12-15-2022 20:10-0500 Heart rate 80 /min [facility] 12-15-2022 20:10-0500 SaO2% (BldA) [Mass fraction] 98 % [facility] 12-15-2022 20:10-0500 Respiratory rate 18 /min [facility] 12-15-2022 20:09-0500 Body temperature 98.24 [degF] [facility] 12-15-2022 20:09-0500 Diastolic blood pressure 73 mm[Hg] [facility] 12-15-2022 20:09-0500 Mean blood pressure 90 mm[Hg] [facility] 12-15-2022 20:09-0500 Systolic blood pressure 122 mm[Hg] [facility] 12-15-2022 18:40-0500 Hourly Rounding [facility] 12-15-2022 18:40-0500 Promise to Return [facility] 12-15-2022 17:17-0500 Hourly Rounding [facility] 12-15-2022 17:17-0500 Promise to Return [facility] 12-15-2022 16:26-0500 Hourly Rounding [facility] 12-15-2022 16:26-0500 Promise to Return [facility] 12-15-2022 15:34-0500 Heart rate 67 /min [facility] 12-15-2022 15:34-0500 SaO2% (BldA) [Mass fraction] 95 % [facility] 12-15-2022 15:34-0500 Body temperature 97.52 [degF] [facility] 12-15-2022 15:33-0500 Diastolic blood pressure 77 mm[Hg] [facility] 12-15-2022 15:33-0500 Mean blood pressure 89 mm[Hg] [facility] 12-15-2022 15:33-0500 Systolic blood pressure 112 mm[Hg] [facility] 12-15-2022 11:45-0500 Heart rate 66 /min [facility] 12-15-2022 11:45-0500 SaO2% (BldA) [Mass fraction] 97 % [facility] 12-15-2022 11:44-0500 Body temperature 98.06 [degF] [facility] 12-15-2022 11:44-0500 Mean blood pressure 83 mm[Hg] [facility] 12-15-2022 08:59-0500 Heart rate 74 /min [facility] 12-15-2022 00:27-0500 Blood Pressure Location [facility] 12-15-2022 00:27-0500 Respiratory rate 16 /min [facility] 12-14-2022 20:22-0500 gluc 159 mg/dL [facility] 12-14-2022 16:27-0500 gluc 128 mg/dL [facility] 12-14-2022 16:00-0500 Body temperature 97.7 [degF] [facility] 12-14-2022 11:50-0500 gluc 109 mg/dL [facility] 12-14-2022 08:44-0500 Heart rate 66 /min [facility] 12-14-2022 00:55-0500 Blood Pressure Location [facility] 12-14-2022 00:55-0500 Mean blood pressure 89 mm[Hg] [facility] 12-14-2022 00:55-0500 Respiratory rate 18 /min [facility] 12-13-2022 09:51-0500 Heart rate 70 /min [facility] 12-13-2022 09:00-0500 Body temperature 98.06 [degF] [facility] 12-13-2022 09:00-0500 Heart rate 64 /min [facility] 12-13-2022 04:24-0500 Blood Pressure Location [facility] 12-13-2022 01:36-0500 Mean blood pressure 85 mm[Hg] [facility] 12-13-2022 00:00-0500 Body temperature 97.34 [degF] [facility] 12-13-2022 00:00-0500 Heart rate 67 /min [facility] 12-12-2022 22:07-0500 Respiratory rate 25 /min [facility] 12-12-2022 21:00-0500 Respiratory rate 30 /min [facility] 12-12-2022 20:04-0500 Respiratory rate 27 /min [facility] 12-12-2022 19:02-0500 Heart rate 69 /min [facility] 12-07-2022 18:33-0500 Body height 167.6 cm Lakia Latasha DO Work Phone: [facility] 12-07-2022 18:33-0500 Body mass index (BMI) [Ratio] 43.58 kg/m2 Lakia Maier DO Work Phone: [facility] 12-07-2022 18:33-0500 Body temperature 98.01 [degF] Lakia Reza DO Work Phone: [facility] 12-07-2022 18:33-0500 Body weight 122.47 kg Lakia Latasha DO Work Phone: [facility] 12-07-2022 18:33-0500 Diastolic blood pressure 84 mm[Hg] Lkaia Latasha DO Work Phone: [facility] 12-07-2022 18:33-0500 Heart rate 79 /min Lakia Reza DO Work Phone: [facility] 12-07-2022 18:33-0500 Respiratory rate 20 /min Lakia Latasha DO Work Phone: [facility] 12-07-2022 18:33-0500 SaO2% (BldA) [Mass fraction] 94 % Lakia Latasha DO Work Phone: [facility] 12-07-2022 18:33-0500 Systolic blood pressure 162 mm[Hg] Lakia Reza DO Work Phone: [facility] 06-30-2022 08:17-0400 Blood Pressure Location [facility] 06-30-2022 08:17-0400 Body temperature 98.06 [degF] Efrain ESP[facility]ZA [facility] 06-30-2022 08:17-0400 Diastolic blood pressure 82 mm[Hg] [facility]rain ESPARZA [facility] 06-30-2022 08:17-0400 Heart rate 61 /min [facility]rain ESPARZA [facility] 06-30-2022 08:17-0400 SaO2% (BldA) [Mass fraction] 97 % [facility] ESPARZA [facility] 06-30-2022 08:17-0400 Systolic blood pressure 138 mm[Hg] [facility] ESP[facility]ZA [facility] 10-02-2021 00:45-0400 Diastolic blood pressure 112 mm[Hg] Michael Gutierrez MD Work Phone: [facility] 10-02-2021 00:45-0400 SaO2% (BldA) [Mass fraction] 97 % Michael Gutierrez MD Work Phone: [facility] 10-02-2021 00:45-0400 Systolic blood pressure 132 mm[Hg] Michael Gutierrez MD Work Phone: [facility] 10-02-2021 00:13-0400 Body mass index (BMI) [Ratio] 41.16 kg/m2 Michael Gutierrez MD Work Phone: [facility] 10-02-2021 00:13-0400 Body temperature 97.3 [degF] Michael Gutierrez MD Work Phone: [facility] 10-02-2021 00:13-0400 Body weight 115.67 kg Michael Gutierrez MD Work Phone: [email or web address] 10-02-2021 00:13-0400 Heart rate 71 /min Michael Gutierrez MD Work Phone: [email or web address] 10-02-2021 00:13-0400 Respiratory rate 16 /min Michael Gutierrez MD Work Phone: [email or web address] 06-11-2021 08:35-0400 Body mass index (BMI) [Ratio] 40.35 kg/m2 Xena Andrews MD Work Phone: [email or web address] Work Phone: 06-11-2021 08:35-0400 Body temperature 98.6 [degF] Xena Andrews MD Work Phone: [email or web address] Work Phone: 06-11-2021 08:35-0400 Body weight 113.4 kg Xena Andrews MD Work Phone: [email or web address] Work Phone: 06-11-2021 08:35-0400 Diastolic blood pressure 63 mm[Hg] Xena Andresw MD Work Phone: [email or web address] Work Phone: 06-11-2021 08:35-0400 Heart rate 66 /min Xena Andrews MD Work Phone: [email or web address] Work Phone: 06-11-2021 08:35-0400 Respiratory rate 18 /min Xena Andrews MD Work Phone: [email or web address] Work Phone: 06-11-2021 08:35-0400 SaO2% (BldA) [Mass fraction] 95 % Xena Andrews MD Work Phone: [email or web address] Work Phone: 06-11-2021 08:35-0400 Systolic blood pressure 164 mm[Hg] Xena Andrews MD Work Phone: [email or web address] Work Phone: 03-08-2021 11:43-0400 BMI (Body Mass Index) 40.35 kg/m2 Hello [facility] Phone: 03-08-2021 11:43-0400 Body Temperature 98.29 [degF] Hello [facility] Phone: 03-08-2021 11:43-0400 Body weight 113.4 kg Hello Curry Phone: 03-08-2021 11:43-0400 BP Diastolic 74 mm[Hg] [facility] Phone: 03-08-2021 11:43-0400 BP Systolic 164 mm[Hg] [facility] Phone: 03-08-2021 11:43-0400 Height 167.6 cm Hello [facility] Phone: 03-08-2021 11:43-0400 Pulse (Heart Rate) 83 /min [facility] Phone: 03-08-2021 11:43-0400 Pulse Oximetry 95 % [facility] Phone: 03-08-2021 11:43-0400 Respiratory Rate 20 /min [facility] Phone: Encounters Encounter Date Encounter Type Care Provider Facility Start: 01-03-2024 End: 01-03-2024 ambulatory KEENA MCGUIRE Not Available Start: 01-03-2024 End: 01-03-2024 Patient encounter procedure Keena Mcguire DO Work Phone: [facility] Comment on above: Bilateral carpal petr fifi syndrome (Primary Dx); Left hip pain Start: 12-03-2023 End[facility]-06-[facility]23 End: 09-09-2023 ambulatory [facility] Start: 03-05-2023 End: 03-05-[address] AQUILINO MEYER Facility:[facility] Start: 02-28-2023 End: 02-28-[address] AQUILINO MEYER Facility:[facility] Start: 02-23-2023 End: 02-23-2023 ambulatory BEN SHAYY Facility:[facility] Start: 01-29-2023 End: 01-29-[address] AQUILINO MEYER Facility:[facility] Start: 01-26-2023 End: 01-26-2023 ambulatory DIMITRIOS WILLETT . Facility:[facility] Start: 01-15-2023 ambulatory Efrain ESPARZA Facility: [facility] Start: 12-16-2022 End: 12-26-2022 Evaluation and management of inpatient [facility] Start: 12-16-2022 End: 12-26-2022 Evaluation and management of inpatient Андрей Rodriguez MD Work Phone: [facility] Comment on above: Closed fracture of r ight ankle, initial encounter (Primary Dx) Start: 12-12-2022 End: 12-15-2022 Observation David WHITEHEAD [facility] Start: 12-07-2022 End: 12-07-2022 Emergency department patient visit [facility] Start: 12-07-2022 End: 12-07-2022 Emergency department patient visit [facility] Work Phone: [facility] ED Comment on above: Closed fracture of d istal end of right fibula, unspecified fracture morphology, initial encounter (Primary Dx) Start: 09-28-2022 End: 09-28-2022 Patient encounter procedure Efrain ESPARZA [facility] Start: 08-08-2022 End: 08-10-2022 Subsequent hospital visit by physician [facility] Echo Room [facility] ECHO Comment on above: Aortic valve stenosi s, etiology of cardiac valve disease unspecified Atrial fibrillation, unspecified type (HCC); Essential hypertension; 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; Hyperlipidemia, unspecified hyperlipidemia type; Ischemic cardiomyopathy; Vitamin D deficiency disease; Mitral valve insufficiency, unspecified etiology Start: 07-25-2022 End: 07-25-2022 Patient encounter procedure MERISSA DONALD [facility] Start: 06-30-2022 End: 06-30-2022 Patient encounter procedure Efrain ESPARZA [facility] Start: 06-19-2022 End: 06-19-2022 Patient encounter procedure Efrain ESPARZA [facility] Start: 05-22-2022 End: 08-20-2022 Recurring ALMA HIGH [facility] Start: 05-03-2022 End: 05-05-2022 Subsequent hospital visit by physician [facility] Additional Xray At [facility] Rad[facility] Comment on above: Pain in both wrists Start: 05-03-2022 End: 05-03-2022 Patient encounter procedure Efrain ESPARZA [facility] Start: 05-03-2022 End: 05-05-2022 Subsequent hospital visit by physician Efrain Esparza MD Work Phone: [facility]iology Start: 11-07-2021 End: 11-07-2021 Subsequent hospital visit by physician Berkley Garza [facility] Physical Therapy Comment on above: Arrived Start: 10-02-2021 End: 10-02-2021 Emergency department patient visit Michael Gutierrez MD Work Phone: [facility] ED Comment on above: Contusion of ribs, r ight, initial encounter (Primary Dx); Contusion of thoracic spine; Contusion of lower back, initial encounter Start: 09-12-2021 End: 09-14-2021 Subsequent hospital visit by physician Cesar Echo Room [facility] ECHO Comment on above: Mitral valve insuffi ciency, unspecified etiology Atrial fibrillation, unspecified type (HCC); 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; Essential hypertension; Hyperlipidemia, unspecified hyperlipidemia type; Ischemic cardiomyopathy; Vitamin D deficiency disease Start: 06-15-2021 End: 06-17-2021 Subsequent hospital visit by physician Efrain Esparza MD Work Phone: [facility] Start: 06-13-2021 End: 06-15-2021 [facility] on above: Pain of left calf Start: 06-11-2021 End: 06-11-2021 Emergency department patient visit Xena Andrews MD Work Phone: [facility] ED Comment on above: Pain in left hip (Pr imary Dx); Pain of left calf; Essential hypertension; Osteoarthritis of left hip, unspecified osteoarthritis type Start: 06-09-2021 End: 06-11-2021 Subsequent hospital visit by physician [facility] Additional Xray At [facility] Comment on above: Paresthesia Start: 03-08-2021 End: 03-08-2021 Emergency department patient visit King Frazier Work Phone: [facility] ED Comment on above: Injury of head, init ial encounter (Primary Dx) Start: 02-08-2021 End: 05-15-2022 Recurring HOLLYJosé FARFAN [facility] Start: 02-02-2021 End: 02-04-2021 Subsequent hospital visit by physician Ian Mri [facility] MRI Comment on above: Left leg weakness; Lumbosacral radiculopathy; Has numbness Start: 10-06-2020 End: 10-08-2020 Subsequent hospital visit by physician Cesar Additional Xray At [facility] Comment on above: Primary osteoarthrit is of right knee Start: 10-06-2020 End: 10-08-2020 Subsequent hospital visit by physician Efrain Esparza [facility] Start: 09-24-2020 End: 09-26-2020 Subsequent hospital visit by physician Cesar [facility]ascular Lab Comment on above: Bruit Start: 09-13-2020 End: 09-15-2020 Subsequent hospital visit by physician Cesar Echo Room Maranda Callard [facility] Comment on above: Atrial fibrillation, unspecified type (HCC); 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; Essential hypertension Ischemic cardiomyopa thy Atrial fibrillation, unspecified type (HCC); 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; Essential hypertension; Hyperlipidemia, unspecified hyperlipidemia type; Vitamin D deficiency disease Start: 10-27-2019 End: 10-27-2019 Subsequent hospital visit by physician Efrain OJEDA Laboratory Comment on above: Chronic systolic con gestive heart failure (HCC); Dyslipidemia; Vitamin D deficiency disease; Hypertension, unspecified type Procedures Date Procedure Procedure Detail Performing Clinician Start: 01-03-2024 Arthrocentesis aspir &/inj interm jt/burs w/us Owen AJ Work Phone: Start: 01-03-2024 Radex hip unilateral with pelvis 2-3 views Keena Mcguire DO Work Phone: Start: 12-26-2022 End: 12-26-2022 Rhythm ecg 1-3 [...] Phone: Start: 08-08-2022 Comprehensive metabo lic panel Emiilano Deng MD Work Phone: Start: 08-08-2022 Lipid panel Emiliano miller MD Work Phone: Start: 08-08-2022 PATIENT FASTING? Emiliano Deng MD Work Phone: Start: 08-08-2022 Radiologic exam ches t 2 views Emiliano Deng MD Work Phone: Start: 05-03-2022 End: 05-03-2022 Radex wrist complete minimum 3 views Keena Mcguire DO Work Phone: Start: 11-23-2021 Injection of hip usi ng fluoroscopic guidance Efrain ESPARZA Comment on above: Left hip injection-1 00% relief Start: 10-02-2021 End: 10-02-2021 Radex spine thoracic 3 views Mihcael Gutierrez MD Work Phone: Start: 09-12-2021 Ecg [...] 10-06-2020 Radiologic exam knee complete 4/more views Keena Mcguire Other Phone: Start: 09-13-2020 Radiologic exam ches t 2 views Emiliano eDng Work Phone: Start: 09-13-2020 25 hydroxy includes [...] above: 4-5-6 Ligation of fallopian tube J saida ESPARZA Plan of Treatment Date Care Activity Detail Author Start: 08-27-2030 DTaP/Tdap/Td vaccine (2 - Td or Tdap) DTaP/Tdap/Td vaccine (2 - Td or Tdap) [facility] Start: 08-27-2030 DTaP/Tdap/Td vaccine (2 - Td) DTaP/Tdap/Td vaccine (2 - Td) [facility] Work Phone: Start: 09-13-2023 End: 09-13-2023 Patient encounter procedure 09/13/2023 Office Visit Cardiology Emiliano Deng MD [address] [place] [id number] [facility] [employer] Start: 08-08-2023 Lipid panel Lipids [facility] Start: 07-27-2023 Influenza vaccination Influenza Vacc ine (#1) [facility] Start: 09-14-2022 End: 09-14-2022 Patient encounter procedure 09/14/2022 Office Visit Cardiology Emiliano Deng MD [address] [place] [address] [facility] [employer] Start: 09-12-2022 Creatinine measurement Creatinine mo nitoring [facility] Start: 09-12-2022 Lipid panel [facility] Start: 09-12-2022 Potassium monitoring Potassium monit [facility] Start: 07-27-2022 Influenza vaccination Flu vaccine (# 1) [facility] Start: 12-22-2021 COVID-19 Vaccine (4 - Booster for Pfizer series) COVID-19 Vaccine (4 - Booster for Pfizer series) [facility] Start: 11-17-2021 End: 11-17-2021 Patient encounter procedure [...] Office Visit Cardiology Emiliano Deng MD [address] [place] [address] [facility] [employer] Start: 09-13-2021 Creatinine measurement Creatinine mo [place], [place] Start: 09-13-2021 Lipid panel Lipid screen [place], [place] Start: 09-13-2021 Potassium monitoring Potassium monit [place] Start: 07-27-2021 Influenza vaccination Flu vaccine (# 1) [facility] Phone: Start: 06-13-2021 End: 07-12-2021 VL DUP LOWER EXTREMITY VENOUS LEFT VL DUP LOWER EXTREMITY VENOUS LEFT Imaging Routine Pain of left calf Expected: 06/13/2021, Expires: 07/12/2021 [employer] Phone: Comment on above: Expected: 06/13/2021 , Expires: 07/12/2021 Start: 10-27-2020 Creatinine measurement Creatinine mo [place], [place] Start: 10-27-2020 Lipid panel Lipid screen [place], [place] Start: 10-27-2020 Potassium monitoring Potassium monit [place] Start: 10-22-2020 Shingles Vaccine (2 of 2) Shingles Vaccine (2 of 2) [facility] [employer] Start: 09-20-2020 End: 09-20-2020 Office Visit 09/20/2020 Office Visit Cardiology Emiliano Deng MD [address] [place] [address] [facility] [employer] Start: 07-27-2020 Influenza vaccination Flu vaccine (# 1) [place] Start: 06-27-2020 Creatinine monitoring Creatinine mon itoring [place] Start: 06-27-2020 Lipid screen Lipid screen [place], [place] Start: 06-27-2020 Potassium monitoring Potassium monit oring [place] Start: 11-04-2019 End: 11-04-2019 Office Visit 11/04/2019 Office Visit Cardiology Emiliano Deng MD [address] [place] [address] [phone] [facility] [employer] Start: 07-27-2019 Influenza vaccination Flu vaccine (# 1) [place] Start: 05-18-2019 Annual Wellness Visi t (AWV) Annual Wellness Visit (AWV) [facility] Start: 2002 DEXA (modify frequen cy per FRAX score) DEXA (modify frequency per FRAX score) [place] Start: 2002 Pneumococcal 65+ yea rs Vaccine (1 of 1 - PPSV23) Pneumococcal 65+ years Vaccine (1 of 1 - PPSV23) [place] Start: 2002 Pneumococcal 65+ yea rs Vaccine (2 of 2 - PPSV23) Pneumococcal 65+ years Vaccine (2 of 2 - PPSV23) [facility] [employer] Phone: Start: 1992 Screening for osteoporosis DEXA (modify frequency per FRAX score) [facility] Start: 1987 Shingles Vaccine (1 of 2) Shingles Vaccine (1 of 2) [place] Start: 1956 DTaP/Tdap/Td vaccine (1 - Tdap) DTaP/Tdap/Td vaccine (1 - Tdap) [place] Start: 1953 COVID-19 Vaccine (1 of 2) COVID-19 Vaccine (1 of 2) [facility] [employer] Phone: Start: 1953 COVID-19 Vaccine (1) COVID-19 Vaccin e (1) [facility] [employer] Phone: Start: 1949 COVID-19 Vaccine (1) COVID-19 Vaccin e (1) [employer] Phone: Start: 1949 Depression Screen Depression Screen [facility] [employer] Start: 1948 DTaP/Tdap/Td vaccine (1 - Tdap) DTaP/Tdap/Td vaccine (1 - Tdap) [facility] [place] [place] [place] Start: 1937 Annual Wellness Visi t (AWV) Annual Wellness Visit (AWV) [facility] [employer] Dup-scan xtr veins complete bilateral study VASCULAR REPORT Imaging Ordered: 06/14/2021 [employer] Phone: Comment on above: Ordered: 06/14/2021 End: 09-13-2020 ECHO Complete 2D W Doppler W Color ECHO Complete 2D W Doppler W Color Echocardiography Routine Ischemic cardiomyopathy 1 Occurrences starting 09/13/2020 until 09/13/2020 [facility] [place] [place] Comment on above: 1 Occurrences starti ng 09/13/2020 until 09/13/2020 End: 09-12-2021 ECHO Complete 2D W Doppler W Color ECHO Complete 2D W Doppler W Color Echocardiography Routine Mitral valve insufficiency, unspecified etiology 1 Occurrences starting 09/12/2021 until 09/12/2021 [employer] Phone: Comment on above: 1 Occurrences starti ng 09/12/2021 until 09/12/2021 End: 08-08-2022 ECHO Complete 2D W Doppler W Color ECHO Complete 2D W Doppler W Color Echocardiography Routine Aortic valve stenosis, etiology of cardiac valve disease unspecified 1 Occurrences starting 08/08/2022 until 08/08/2022 [facility] [employer] Phone: Comment on above: 1 Occurrences starti ng 08/08/2022 until 08/08/2022 EKG 12 Lead [facility] [place] End: 09-24-2020 VL DUP CAROTID BILATERAL VL DUP CAROTID BILATERAL Imaging Routine Bruit 1 Occurrences starting 09/24/2020 until 09/24/2020 [place] Comment on above: 1 Occurrences starti ng 09/24/2020 until 09/24/2020 VL DUP CAROTID BILATERAL VL DUP CAROTID BILATERAL Imaging Routine Bruit 09/24/2020 3:28 PM EDT [email or web address]- [place], [place] XR Hip - left 3 Views XR hip lef t 2 or 3 views Imaging Routine Left hip pain 01/03/2024 12:50 PM EST [facility] [employer] Work Phone: End: 10-02-2021 XR RIBS RIGHT INCLUDE CHEST (MIN 3 VIEWS) XR RIBS RIGHT INCLUDE CHEST (MIN 3 VIEWS) Imaging Routine Once for 1 Occurrences starting 10/02/2021 until 10/02/2021 [email or web address] Work Phone: Comment on above: Once for 1 Occurrenc es starting 10/02/2021 until 10/02/2021 XR RIBS RIGHT INCLUD E CHEST (MIN 3 VIEWS) XR RIBS RIGHT INCLUDE CHEST (MIN 3 VIEWS) Imaging STAT 10/02/2021 1:29 AM EDT [email or web address] Work Phone: Immunizations Immunization Date Immunization Notes Care Provider Fa cami 09-14-2022 SARS-CoV-2 (COVID-19 ) [id number] [facility] 09-06-2022 influenza virus vacc ine, unspecified formulation [facility] 09-13-2021 influenza virus vacc ine, unspecified formulation [facility] Comment on above: Result Comment: [facility] 08-22-2021 SARS-CoV-2 (COVID-19 ) mRNA BNT-162b2 [facility] [employer] [facility] Comment on above: Result Comment: [facility] 01-21-2021 SARS-CoV-2 (COVID-19 ) mRNA BNT-162b2 [facility] Comment on above: Result Comment: Brittany Pinon 12-31-2020 SARS-CoV-2 (COVID-19 ) mRNA BNT-162b2 [facility] Comment on above: Result Comment: Brittany Pinon 08-27-2020 influenza virus vacc ine, unspecified formulation Efrain ESPARZA [facility] 08-27-2020 tetanus toxoid, redu desiree diphtheria toxoid, and acellular pertussis vaccine, adsorbed Efrain ESPARZA [facility] 08-27-2020 zoster vaccine recombinant Efrain ESPARZA [facility] 09-04-2019 influenza virus vacc ine, unspecified formulation Efrain ESPARZA [facility] 08-26-2019 influenza virus vacc ine, unspecified formulation Efrain ESPARZA [facility] 08-26-2018 influenza virus vacc ine, unspecified formulation Efrain ESPARZA [facility] 08-27-2017 influenza virus vacc ine, unspecified formulation Efrain ESPARZA [facility] 10-11-2016 pneumococcal polysaccharide vaccine, 23 valent Efrain ESPARZA [facility] 08-29-2016 influenza virus vacc ine, unspecified formulation Efrain ESPARZA [facility] 08-29-2016 pneumococcal conjuga te vaccine, 13 valent Efrain ESPARZA [facility] 08-28-2016 pneumococcal conjuga te vaccine, 13 valent Efrain ESPARZA [facility] 08-27-2013 influenza virus vacc ine, unspecified formulation Efrain ESPARZA [facility] 08-27-2013 pneumococcal polysaccharide vaccine, 23 valent Efrain ESPARZA [facility] Payers Date Payer Category Payer Medicare [employer] MEDICARE UHC DUAL COMPLETE [id number] 2023-Present [address] [place] [address] [id number] 2019 Medicaid MEDICAID [facility] [id number] 2019-Present [phone] [address] [place] [address] Medicaid [id number] 2017 Unknown BCBS [place] - [place] P PO xxxxxxxxxxxx 2017-Present [address] [place] [address] xxxxxxxxxxxx [id number] 2014 Medicaid [id number] 2014 Medicare MEDICARE MEDICAR E PART A AND B xxxxxxxxxxx 2014-Present [phone] [address] [address] [place] [address] xxxxxxxxxxx [id number] 2014 Medicare [id number] 2014 Medicare [id number] 1959 Medicaid [id number] 1937 Unknown [id number] 1937 Unknown [id number] 1937 Unknown [id number] 1937 Unknown [id number] [id number] 1937 Unknown [id number] [id number] 1937 Unknown [id number] [id number] 1937 Unknown [id number] [id number] 1937 Unknown [id number] [id number] 1937 Unknown [id number] [id number] 1937 Unknown [id number] [id number] 1937 Unknown [id number] [id number] 1937 Unknown [id number] [id number] 1937 Unknown [id number] [id number] 1937 Unknown [id number] 1937 Unknown [id number] Social History Date Type Detail Facility Start: 06-30-2019 End: 09-14-2022 Tobacco smoking status NHIS Former smoker [place] History of tobacco use Cigarette Smoker [place], [place] Start: 1935 Sex Assigned At Not on file [place] Start: 11-04-2019 End: 08-24-2023 Tobacco use and exposure Never used [place] Start: 11-27-2022 End: 12-16-2022 Exposure to SARS-CoV-2 (event) Not sure [employer] Phone: Start: 06-11-2021 End: 12-16-2022 Alcohol intake Ex-drinker (finding) [employer] Phone: Start: 01-03-2024 Sex Assigned At Female F [facility] Tobacco smoking status Never [facility] History of tobacco use Current smoker [employer] Work Phone: Start: 10-31-2022 History SDOH Alcohol Frequency 1 [employer] Phone: Start: 10-31-2022 History SDOH Alcohol Std Drinks 0 [facility]: Tobacco [facility] Comment on above: denies Tobacco smoking status No Smokin g Status Entered [facility] Start: 08-24-2023 Tobacco smoking stat us NHIS Never smoked tobacco [facility] Start: 01-03-2024 History of Social function [facility] Functional Status Date Assessment Result Facility 12-12-2022 Functional Status No [facility] 12-12-2022 Functional Status [facility] 06-30-2022 Functional Status N/A [facility] Clinical Notes 06-11-2021 to 01-03-2024 Divine Carter MA - 01/03/2024 1:15 PM Mario Alberto Avalos RN - 12/26/2022 12:25 PM Brandy Swain, [facility] - 12/26/2022 10:44 AM AJ PantojaW - 12/26/2022 9:11 AM ESTAttachments Note Date & Type Note Facility 01-03-2024 History of Present illness Narrative Associated Order(s): M Inj/Asp: bilateral radiocarpal Post-Procedure Diagnose(s): Bilateral carpal tunnel syndrome M Inj/Asp: bilateral radiocarpal on 01/03/2024 1:55 PM Indications: diagnostic evaluation Details: 25 G needle, ultrasound-guided Medications (Right): 6 mg betamethasone acetate-betamethasone sodium phosphate 6 (3-3) MG/ML Medications (Left): 6 mg betamethasone acetate-betamethasone sodium phosphate 6 (3-3) MG/ML Outcome: tolerated well, no immediate complications Consent was given by the patient. documented in this encounter [facility] 12-26-2022 History of Present illness Narrative Pt leaves via [facility] transport. Daughter to follow to [facility]. Report called to nurse Jimenez at [facility]. Images from the original note were not included. [facility] Inpatient Discharge Medication Education Note [...] understanding and had no additional questions. Justin Swain PharmD 12/26/2022 10:11 AM SW received message from [facility] this morning that insurance approval has been received. SW spoke with pt's dtr Osbaldo and they are not able to transport today. SW arranged wheelchair van transport for 12- 1230 pm picking belt operator. Nursing and Osbaldo notified of time. Osbaldo to come up and see pt as well. Pas ID completed last week and faxed to facility. No further needs identified at this time. Anny ROCHAW 12/26/2022 Hospitalist Progress Note 12/26/2022 6:35 AM Subjective: Admit Date: 12/16/2022 PCP: Efrain Esparza MD Interval History: Aleena has no complaints this am. Her pain is controlled on Gabapentin / Percocet. No chest pain or SOB. Appetite is okay, no abdominal pain. Bowels moving and no trouble urinating. Awaiting F approval for DC. Diet: ADULT DIET; Regular; [...] placed in a fracture boot by Dr. Mcguire. On PT / OT daily with Percocet [...] feet Generalized weakness Андрей Rodriguez MD, MD [facility] Hospitalist Patient wanted to get herself washed up at this time. Compound Mixer assisted with cee care and washed her back. Clothes changed and new brief applied. Assisted patient back to recliner. Patient has no further needs at this time, will continue to monitor. States nausea is better. I think I was just tired . States she is able to take her vitamin E capsule. SW called to [facility] to see if insurance precert had been authorized and they have not had received precert as of yet. MALI faxed updates to [facility] and provided phone number to the floor in case they would receive precert later in the day. MALI following. Anny ROCHAW 12/25/2022 [facility] Occupational Therapy Daily Note Date: 12/25/2022 [...] no LOB. Short Term Goal 5: N/A Boring Mill [employer] Goals Time Frame for Boring [employer] Goals : STG=LTG Call light in reach, [...] are for her to go to the snf for further care. Diet: ADULT DIET; Regular; [...] placed in a fracture boot by Dr. Mcguire. On PT / OT daily with Percocet [...] treatment / therapy. Plan to DC to [facility] when approved by insurance. Differential Diagnosis: [...] the patient's current medications (including all prescriptions, jocx-vgj-oruegrx products, herbals, cannabis / cannabidiol products, vitamin [...] satisfy MIPS performance). Андрей Rodriguez MD, MD [facility] Hospitalist Patient uses to call light to [...] family brings in outside lunch for patient. [facility] Occupational Therapy Daily Note Date: 12/24/2022 Patient Name: Aleena Gill : 1935 (87 y.o.) Subjective: Pt in chair sleeping upon arrival Pt is PROGRESSING toward goals and independence of Self Care this treatment session Continue to assess Pending Progress Objective ADL Equipment Provided: Chairlift Operator, Sock aid UE Bathing: Modified independent LE [...] no LOB. Short Term Goal 5: N/A Boring Mill [employer] Goals Time Frame for [facility] Goals : STG=LTG Call light in reach, Phone in reach, Use of Gait belt, and Left in chair Time In: 705 Time Out: 740 Timed Coded Minutes: 35 Total Treatment Time: 35 MARIN Franco, OTR/L Date: 12/24/2022 Up from chair and to BR with boot on to RLE. Pt does fairly well. Has small BM. Cee care provided. [facility] Occupational Therapy Daily Note Date: 12/23/2022 Patient Name: Aleena Gill : 1935 (87 y.o.) Subjective: Pt in therapy room following PT session. Pt is PROGRESSING toward goals and independence of Self Care this treatment session Continue to assess Pending Progress Objective Sit to stand: Contact guard assistance Stand to sit: Contact guard assistance Assessment Assessment: Pt in therapy room with SILK EXAMINER upon arrivla. Agreeable to work with OTR. Engaged in THAIS UB exercises/activity this am. Addressed traffic safety administrator/pinch strength & exercises in all planes of [...] no LOB. Short Term Goal 5: N/A Boring Mill Operator For Metal Goals Time Frame for Boring Mill Operator For Metal Goals : STG=LTG Call light in reach, Phone in reach, Use of Gait belt, and Left in chair Time In: 740 Time Out: 810 Timed Coded Minutes: 30 Total Treatment Time: 30 MARIN Franco, OTR/L Date: 12/23/2022 SW met with pt's dtr Merari in pt's room this morning and explained that referral made to [facility] for skilled care and await insurance authorization for her transfer. SW explained to Merari that this will move her up to first on their list for assisted living if she is in their facility for skilled care. SW called to [facility] and spoke with Kirsty, as Ben is off today, and she reports that precert has been started and they are just awaiting insurance approval. MALI provided contact number to SW office and to the hospital floor. SW called and left a message for pt's dtr Osbaldo as well. SW following and await insurance authorization for pt to transfer. Anny Gauthier ADULT SCHOOL TEACHER VETERINARY SURGEON 12/22/2022 SW spoke with pt's dtr Osbaldo and she is in agreement with plan. Pas ID completed and faxed to facility in case pt would discharge over the weekend if prior auth is received. Anny TRUJILLO VETERINARY SURGEON 12/22/2022 Hospitalist Progress Note 12/22/2022 12:14 PM [...] ankle fracture -s/p surgical repair by Dr. Mcguire at [facility], continue PT and OT, on Percocet for [...] Already on Anticoagulation Nicholas Rowan MD, MD [facility] Hospitalist [facility] Occupational Therapy Daily Note Date: 12/22/2022 [...] Dressing: Setup LE Dressing: Maximum assistance (to stephen brief, sweatpants and L sock) Toileting: Contact [...] no LOB. Short Term Goal 5: N/A Boring Mill Operator [employer] Goals Time Frame for Boring Mill Operator [employer] Goals : STG=LTG Call light in reach, Phone in reach, Use of Gait belt, Chair alarm, Family Present, and Left in chair Time In: 0940 Time Out: 1015 Timed Coded Minutes: 35 [...] EKG results. No further orders for now. [facility] Occupational Therapy Plan of Care OT Orders [...] no LOB. Short Term Goal 5: N/A Boring Mill Operator [employer] Goals Time Frame for Mcc Goals : STG=LTG Delphine Bonilla OTR/L Date: 12/21/2022 [facility] Occupational Therapy Daily Note Date: 12/21/2022 [...] x5 minutes with SBA and no LOB. Boring Mill Operator [employer] Goals Time Frame for Boring Mill Operator For [employer] Goals : STG=LTG Call light in reach, Phone in reach, Use of Gait belt, Chair alarm, and Left in chair Time In: 08 Time Out: 932 Timed Coded Minutes: 46 Total Treatment Time: 46 ANTWON Cabrera/Charlotte Date: 12/21/2022 Patient calls stating she doesn't [...] pain. Therapy evals and notes sent to [facility], per their request, so determination can be made re: placement. Will assist with discharge planning as appropriate. ALEXANDRU Blair 12/21/2022 Swingbed IDT team meeting held this morning regarding pt progress. Swing bed coordinator reports that pt's dtr has contacted [facility] regarding the assisted living and pt could be transferred there as a skilled pt to be in their facility and then transition to assisted living from there. MALI made referral to [facility] and spoke with Ben. Discussed with [...] faxed information and will await response from [facility]. Anny ROCHAW 12/20/2022 [facility] Occupational Therapy Daily Note Date: 12/20/2022 [...] x5 minutes with SBA and no LOB. Boring Mill Operator [employer] Goals Time Frame for Boring Mill Operator [employer] Goals : STG=LTG Call light in reach, Phone in reach, Use of Gait belt, Chair alarm, and Left in chair Time In: 08 Time Out: 923 Timed Coded Minutes: 38 Total Treatment Time: 38 ANTWON Cabrera/Charlotte Date: 12/20/2022 [facility] Swing Bed Interdisciplinary Care Plan Conference Report Recertification for Continued Skilled Care. Patients name:Aleena Gill Date of Conference: 12/20/2022 The Following Information was discussed and agreed upon with the patient and/or Caregivers as listed below. Names of Team Members and Caregivers present for meeting: Licensed Sales Producer: Lisset Gauthier Nursing: Zack William Therapy: Zack Juarez, PT; Charlotte Ashraf/LEVIR Hot Knife Cutter: Reyes Simpson Activities: Amanda Marinelli Pastoral Care: [...] Goal: PO >75% meals and supplements Spiritual: Catholic needs met: [x] Yes [] No [] N/A Notified Door Hanger or Instrument Technician Apprentice of admission: [] Yes [] No [x] [...] x5 minutes with SBA and no LOB. Mcc Goals Time Frame for Mcc Goals : STG=LTG Physical Therapy: Transfers: Transfers [...] Goal: Participate in 3 activities per week Licensed Sales Producer: Plan for Discharge: Update insurance today. Swing bed coordinator reports that pt's dtr has contacted [facility] regarding the assisted living and pt could be transferred there as a skilled pt to be in their facility and then transition to assisted living from there. Follow Up/Services needed: Referral made to [facility] for continued SNF care, await response. Continued skilled needs: PT/OT Skilled Services are for the ongoing condition for which the individual received inpatient care in a hospital. Physician signature certifies patient continued need for SNF inpatient care. Physical Therapy [facility] Physical Therapy Date: 12/20/2022 Patient Name: Aleena Gill : 1935 [x] Pt Refusal Patient in chair upon arrival with family members present in room. Patient complains of burning in her R foot but this has decreased some since her sock was removed. She declines working with therapy at this time stating that she is tired and she is also waiting for B meeting to come to her room and talk to her and family. Will return after lunch and progress as able. [] Pt Unavailable due to: Мария Lozada, SILK EXAMINER Date: 12/20/2022 Comprehensive Nutrition Assessment Type and Reason for Visit: Reassess Nutrition Recommendations/Plan: Continue current diet. Continue strawberry ensure enlive, 4 oz TID with meals. Encourage protein foods for healing needs . Malnutrition Assessment: Malnutrition Status: At risk for malnutrition (Comment) (12/18/22 0732) Context: Acute Illness Findings of the 6 clinical characteristics of malnutrition: Energy Intake: Mild decrease in energy intake (Comment) (acutely) Weight Loss: No significant weight loss Body Fat Loss: No significant body fat loss Muscle Mass Loss: No significant muscle mass loss Fluid Accumulation: Mild Extremities Resin Shaver Strength: Not Performed Nutrition Assessment: Continued increased [...] Anthropometric Measures: Height: 5' 6 (167.6 cm) Wadsworth Body Weight (IBW): 130 lbs (59 kg) [...] Used for Energy Requirements: Current Energy (kcal/day): 8100-4342 (11-15) Weight Used for Protein Requirements: Wadsworth Protein (g/day): 63-73 (1.2-1.4) Method Used for [...] Discharge Planning: MARTI SIMPSON RD, LD Contact: [phone] This nurse gives pain medication, see eMAR [...] needs, will continue to monitor. Physical Therapy [facility] Date: 12/19/2022 Physical Therapy Daily Note Patient Name: Aleena Gill : 1935 (87 y.o.) Pt is PROGRESSING toward goals and increased independence of mobility this treatment session Assessment Assessment: Patient seated up in chair after working with MIKE. States she is tired but agrees to do what she can with SILK EXAMINER. Performs seated exercises as outlined above but [...] Time Frame for Short Term Goals: NA Mcc Goals Time Frame for Boring Mill Operator For Metal Goals : 7 days (12/22/2022) Boring [employer] Goal 1: Patient to transfer sit to stand modified independent Boring Mill Operator [employer] Goal 2: Patient to transfer supine to sit and sit to supine modified independent Boring Mill Operator [employer] Goal 3: Patient to ambulate 75 ft x2 with w.walker and protective boot R Le modified independent Mcc Goal 4: Patient to have good dynamic standing balance to complete ADLS safely Мария Leung [facility] Therapy License Number: [id number] [email or web address] Date: 12/19/2022 [facility] Occupational Therapy Daily Note Date: 12/19/2022 [...] x5 minutes with SBA and no LOB. Mcc Goals Time Frame for Mcc Goals : STG=LTG Inpatient safety: Call light in reach, Phone in reach, Use of Gait belt, Nurse Notified, and Left in chair Time In: 1356 Time Out: 1435 Timed Coded Minutes: 39 Total Treatment Time: 39 JIM Silva Date: 12/19/2022 [facility] Occupational Therapy Daily Note Date: 12/19/2022 [...] multiple reports of feeling tired and she (SILK EXAMINER) wore me out . Noticeable SOB, shakiness [...] x5 minutes with SBA and no LOB. Boring Mill Operator [employer] Goals Time Frame for Boring Mill Operator For Metal Goals : STG=LTG Inpatient safety: Call light in reach, Phone in reach, Use of Gait belt, Nurse Notified, and Left in chair Time In: 1029 Time Out: 1111 Timed Coded Minutes: 42 Total Treatment Time: 42 JIM Silva Date: 12/19/2022 Private duty care listing and phone number to [facility] left in pt room with pt and her son to give to her dtr. Anny ROCHAW 12/19/2022 OT relays to technical proposal writer that patient was short of breath and shaking during ambulation to bathroom. This nurse assesses patient to find her upright in chair talking on telephone. SpO2 reads 93% on room with 108 HR. No sob noted, talking without difficulty. Pt denies pain at this time. Physical Therapy [facility] Date: 12/19/2022 Physical Therapy Daily Note [...] remains in therapy room to work with MICROBIOLOGY TECHNICIAN. Safety Devices Type of Devices: Gait belt (in w/c in therapy room to work with MIKE) Use of Gait belt and Other Staff Present ; in w/c in therapy room to work with MICROBIOLOGY TECHNICIAN Time In: 1000 Time Out: 1027 Timed Coded Minutes: 27 Total Treatment Time: 27 Exercises: See Flowsheets Plan Cont Per Plan Of Care Goals Short Term Goals Time Frame for Short Term Goals: NA Boring Mill Operator [employer] Goals Time Frame for Boring Mill Operator For Metal Goals : 7 days (12/22/2022) Mcc Goal 1: Patient to transfer sit to stand modified independent Mcc Goal 2: Patient to transfer supine to sit and sit to supine modified independent Mcc Goal 3: Patient to ambulate 75 ft x2 with w.walker and protective boot R Le modified independent Boring Mill Operator [employer] Goal 4: Patient to have good dynamic standing balance to complete ADLS safely Мария Leung [facility] Therapy License Number: [id number] EXAMINER Date: 12/19/2022 Physical Therapy [facility] Date: 12/18/2022 Physical Therapy Daily Note [...] She agrees to stay and work with SILK EXAMINER. She is able to complete seated exercises [...] Time Frame for Short Term Goals: NA Boring Mill Operator [employer] Goals Time Frame for Mcc Goals : 7 days (12/22/2022) Boring Mill Operator [employer] Goal 1: Patient to transfer sit to stand modified independent Mcc Goal 2: Patient to transfer supine to sit and sit to supine modified independent Mcc Goal 3: Patient to ambulate 75 ft x2 with w.walker and protective boot R Le modified independent Boring Mill Operator [employer] Goal 4: Patient to have good dynamic standing balance to complete ADLS safely Мария Leung [facility] Therapy License Number: [id number] EXAMINER Date: 12/18/2022 [facility] Occupational Therapy Daily Note Date: 12/18/2022 [...] left in w/c in therapy room w/ SILK EXAMINER upon conclusion of OT session. Activity Tolerance: [...] x5 minutes with SBA and no LOB. Mcc Goals Time Frame for Boring Mill Operator For Metal Goals : STG=LTG Other Staff Present : pt left w/ SILK EXAMINER Time In: 1330 Time Out: 1411 Timed Coded Minutes: 41 Total Treatment Time: 41 MARIN Franco OTR/L Date: 12/18/2022 SW and associate manager affiliate marketing met with pt and pt's dtr Osbaldo. Pt is alert and oriented and cooperative with assessment. Pt is a 87 year old female admitted for generalized weakness from [facility] after an ankle fracture and repair. Pt was admitted on 12/16/2022. Pt lives alone in her apartment in [place]. Pt's dtr lives close and checks on [...] follow and assist with discharge planning. Anny HORVATH 12/18/2022 [facility] Occupational Therapy Evaluation Date: 12/18/2022 Patient Name: Aleena Gill : 1935 (87 y.o.) Gender: female Referring Practitioner: Dr. Rodriguez Diagnosis: Generalized weakness Additional Pertinent Hx: Admitted to [facility] on 12/16/22 due to generalized weakness. According [...] Cane Prior Function Receives Help From: Family, boiler attendant Ambulation Assistance: Independent (with wJossywalker) Transfer Assistance: Independent Additional Comments: Daughter lives [...] x5 minutes with SBA and no LOB. Boring Mill Operator For Metal Goals Time Frame for Boring Mill Operator For Metal Goals : STG=LTG Plan Times Per Week: 5 days Times Per Day: Once a day (1-2x/day) Time In: 924 Time Out: 952 Timed Coded Minutes: 0 Total Treatment Time: 28 ANTWON Cabrera/Charlotte 12/18/2022 Case Management Assessment Initial Evaluation Date/Time [...] PCP: Efrain Esparza MD PCP verified by ? Yes (Dr. Esparza) Chart Reviewed: Yes History Provided by: Patient Patient Orientation: Alert and Oriented, Person, Place, Situation, Self Patient Cognition: Alert Hospitalization in the last 30 days (Readmission): No If yes, Readmission Assessment in Navigator will be completed. Advance Directives: Code Status: Full Code Patient's Primary Decision Maker is: Legal Next of Kin Discharge Planning: Patient lives with: Alone Type of Home: Apartment Primary Malariologist: Self Patient Support Systems include: Children, Family [...] Plan for transportation at discharge: Financial Payor: [facility] / Plan: mPort DUAL COMPLETE / Product Type: *No Product type* / Does insurance require precert for SNF: Yes Potential assistance Purchasing Medications: No Ozyf-df-Kcut request: [facility] - [place], [place] - [address] [place] [address] - F [phone] [place], [place] [id number] [id number] - [place], [place] - [facility] [phone] - F [phone] [place] [id number] Notes: Factors facilitating achievement of predicted outcomes: Family support, Cooperative, and Has needed Durable Medical Equipment at home Barriers to discharge: Pain, Lower extremity weakness, and frequent falls. Additional Case Management Notes: Evelyne at bedside, requesting information on Passport services and private duty aides, info to be provided. The Plan for Transition of Care is related to the following treatment goals of Weakness [R53.1] Generalized weakness [R53.1] IF APPLICABLE: The Patient and/or patient small business sales representative Aleena and her family were provided with a choice of provider and agrees with the discharge plan. [place] of choice list with basic dialogue that supports the patient's individualized plan of care/goals and shares the quality data associated with the providers was provided to: Patient Patient Inweaver Name: The Patient and/or Patient Inweaver Agree with the Discharge Plan? Yes Osbaldo William RN Case Management Department Physical Therapy [facility] Date: 12/18/2022 Physical Therapy Daily Note [...] the bathroom. Walking boot is donned per SILK EXAMINER. Sit to stand from chair is min/CGA. [...] Present, and Left in chair Time In: 841 Time Out: 911 Timed Coded Minutes: 30 Total Treatment Time: 30 . Exercises: See Flowsheets Plan Cont Per Plan Of Care Goals Short Term Goals Time Frame for Short Term Goals: NA Boring Mill Operator For Metal Goals Time Frame for Mcc Goals : 7 days (12/22/2022) Mcc Goal 1: Patient to transfer sit to stand modified independent Boring Mill Operator [employer] Goal 2: Patient to transfer supine to sit and sit to supine modified independent Mcc Goal 3: Patient to ambulate 75 ft x2 with w.walker and protective boot R Le modified independent Mcc Goal 4: Patient to have good dynamic standing balance to complete ADLS safely Мария [facility] License Number: [id number] EXAMINER Date: 12/18/2022 Hospitalist Progress Note 12/18/2022 8:03 [...] ankle fracture -s/p surgical repair by Dr. Mcguire at [facility], continue PT and OT, Percocet as needed [...] the patient's current medications (including all prescriptions, [id number]-ungyqum products, herbals, cannabis / cannabidiol products, vitamin [...] arrangement) [x] Personal Phone Number Located on [facility] Board [x] Swing Bed Team Meetings Family encouraged [...] do not have a copy on file, patient services manager notified and will follow up. [...] is it to you to participate in roman catholic services or practices? Activity Care Plan: Will participate in activity programs of choice daily with no decline throughout SBU stay. KEG FILLER S SIGNATURE: Amanda Marinelli Date: 12/21/2022 Comprehensive Nutrition Assessment Type and Reason for Visit: Initial, Positive Nutrition Screen Nutrition Recommendations/Plan: Encourage oral intakes Encourage use of Ensure (prefers strawberry) Malnutrition Assessment: Malnutrition Status: At risk for malnutrition (Comment) (12/18/22 5024) Context: Acute Illness Findings of the 6 clinical characteristics of malnutrition: Energy Intake: Mild decrease in energy intake (Comment) (acutely) Weight Loss: No significant weight loss Body Fat Loss: No significant body fat loss Muscle Mass Loss: No significant muscle mass loss Fluid Accumulation: Mild Extremities Resin Shaver Strength: Not Performed Nutrition Assessment: Increased nutrient [...] Anthropometric Measures: Height: 5' 6 (167.6 cm) Wadsworth Body Weight (IBW): 130 lbs (59 kg) [...] Used for Energy Requirements: Current Energy (kcal/day): 1675-9031 (11-15) Weight Used for Protein Requirements: Wadsworth Protein (g/day): 63-73 (1.2-1.4) Method Used for [...] Signs/Symptoms Outcomes: Biochemical Data, Weight Discharge Planning: Sushnat Cain RD, LD Contact: [phone] Patient continues to be monitored closely though [...] was ok'd with registration and the nursing supervisor grips. Educated the patient on patient safety and emphasized that we are here to help. Moving patient to a room closer to the nurses station for closer monitoring and the benefit of a hercules bed. Patient is agreeable with switching rooms from 270 to 258. This information with be shared with the Attending provider in the morning. Physical Therapy [facility] Date: 12/17/2022 Physical Therapy Daily Note [...] assist. Patient reaches for grab bar near [facility] prior to being safely in front of [facility]. Independet with cee care. Standing balance to [...] Time Frame for Short Term Goals: NA Mcc Goals Time Frame for Boring Mill Operator For Metal Goals : 7 days (12/22/2022) Boring Mill Operator For Metal Goal 1: Patient to transfer sit to stand modified independent Mcc Goal 2: Patient to transfer supine to sit and sit to supine modified independent Mcc Goal 3: Patient to ambulate 75 ft x2 with w.walker and protective boot R Le modified independent Mcc Goal 4: Patient to have good dynamic standing balance to complete ADLS safely Мария S [facility] Therapy License Number: [id number] EXAMINER Date: 12/17/2022 Patient reports no longer having upset stomach, nausea, or diarrhea. Previous nurse (MAUREEN Khan) reports patient c/o nausea and not feeling well after 1800. Patient puts occupational therapy program director light to use the restroom. Patient states [...] elevated. Lunch aserved. Will continue to monitor. [facility] Physical Therapy Evaluation Date: 12/16/2022 Patient Name: Aleena Gill : 1935 (87 y.o.) Gender: female Referring Practitioner: Dr. Rodriguez Diagnosis: Right ankle Additional Pertinent Hx: Patient had fall at home and fx R ankle.Had ankle surgery yesterday at [facility] and arrived in swingbed late last night. [...] Independent (with w.walker) Transfer Assistance: Independent Active Greenhouse Or Nursery Transplanter: Yes Additional Comments: Daughter lives nearby and [...] Time Frame for Short Term Goals: NA Mcc Goals Time Frame for Boring Mill Operator For Metal Goals : 7 days Boring Mill Operator For Metal Goal 1: Patient to transfer sit to stand modified independent Mcc Goal 2: Patient to transfer supine to sit and sit to supine modified independent Boring Mill Operator [employer] Goal 3: Patient to ambulate 75 ft x2 with w.walker and protective boot R Le modified independent Boring Mill Operator For Metal Goal 4: Patient to have good dynamic standing balance to complete ADLS safely PT Individual Minutes Time In: 1034 Time Out: 1102 Minutes: 28 Kay Alcala, PT, PT 12/16/2022 Family member brings in patient's home supplied Humira. Med is in original box with script label adhered to box. Per supervisor grips to administer as patient is day late on receiving dose which she takes every two weeks. 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 Regular low fat/low cholestenol, high fiber [...] bring it in. documented in this encounter [employer] Work Phone: 12-26-2022 Hospital Discharge instructions Андрей Rodriguez [...] with Efrain Esparza MD after discharge from [facility]. Dafne Avalos RN - 12/22/2022 1:23 PM EST Continuity of Care Form Patient Name: Aleena Gill : 1935 Admit date: 12/16/2022 Discharge date: 12/26/2022 Code Status Order: DNR-CCA Advance Directives: Admitting Physician: Андрей Rodriguez MD PCP: Efrain Esparza MD Discharging Nurse: Dafne REDDY Discharging Hospital Unit/Room#: 0258/0258-01 Discharging Unit Emergency Contact: Extended Emergency Contact Information Primary Emergency Contact: Merari [facility] Mobile Relation: Child Secondary Emergency Contact: STANTON HUERTA Mobile Relation: Child Preferred language: Turkish Recreation Facility Manager needed? 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 Edema R60.9 Gastroesophageal reflux disease K21.9 Hallucinations R44.3 Hoarseness R49.0 Hyperglycemia R73.9 Hypothyroidism E03.9 Impacted cerumen H61.20 Mixed hyperlipidemia E78.2 Morbid obesity (HCC) E66.01 Numbness of hand R20.0 Pain of left lower extremity M79.605 Rheumatoid arthritis (HCC) M06.9 Spinal stenosis of lumbar region M48.061 Type 2 diabetes mellitus (HCC) E11.9 Unsteadiness on feet R26.81 Generalized weakness [...] Assisted Dressing Assisted Toileting Assisted Feeding Independent Core Filer Independent Med Delivery whole Wound Care Documentation [...] In: 360 [P.O.:360] Out: - Safety Concerns: Sundowners Sundrome and At Risk for Falls Impairments/Disabilities: None [...] Readmission: 12 Discharging to Facility/ Agency Name: [facility] Address: [address] [place] [address] Dialysis Facility (if applicable) Name: Address: Dialysis Schedule: Phone: Fax: Cotton Bag Sewer/Timing Inspector signature: PHYSICIAN SECTION Prognosis: Good Condition at Discharge: Stable Rehab Potential (if transferring to Rehab): Good Recommended Labs or Other Treatments After Discharge: Physician Certification: I certify the above information and transfer of Aleena Gill is necessary for the continuing treatment of the diagnosis listed and that she requires Jail Facility for greater 30 days. Update Admission H&P: No change in H&P PHYSICIAN SIGNATURE: The following attachments cannot be sent through Care Everywhere.Fatigue (Turkish)Weakness: Generalized (Turkish)Muscle Conditioning: Exercises (Turkish)documented in this encounter BLAKE CORTEZ [employer] Work Phone: 12-15-2022 Hospital Discharge instructions Patient Education 12/15/2022 15:05:43 Ankle Fracture, Gdkq-sf-Onyb Ankle Fracture The ankle joint is made [...] crutches as told by your doctor. Take gdgo-yxw-iitnkfw and prescription medicines only as told by [...] 09/09/2010 Document Revised: 10/25/2018 Document Reviewed: 12/17/2017 [employer] Patient Education 2020 [employer] Follow Up Care 12/12/2022 19:02:47 With:Efrain ESPARZA Address: [address] [place] [address]- Business (1) When: Unknown Comments:Call for followup appointment when d/c from SNF With:Keena Mcguire Address: [address] [place] [address] Business (1) When:5 to 7 days [facility] 12-15-2022 Evaluation + Plan note Extrac jorge from: Title:Discharge Note Author:JEISON LOFTONP-Ronel TREVINO Date:12/15/22 Hemodynamically stable condi tion Discharge To, Anticipated II - Jail Unit Discharge Status: Improved Discharge Instructions Given: [...] Daily With When Contact Information Efrain ESPARZA [facility]ly [facility] [address] [facility] [place] [address]- Business (1) Additional Instructions: Call for followup appointment when d/c from [facility] Keena Mcguire Within 5 to 7 days [address] [place] [address]- Business (1) Additional Instructions: Ankle Fracture, Ytwd-zs-Zbzx Extracted from: Title:APSO Note Author:JEISON BOSSMAN-Vero TREVINO ate:12/15/22 1. Fracture of ankle (S82.89 9A: Other fracture of unspecified lower leg, initial encounter for closed fracture) 12/07/2022: R ankle fracture secondary to mechanical fall at home -12/07: Right ankle x-ray (at [facility]) acute closed distal fibular fracture -12/09: Patient slid out of bed re-injuring her ankle -12/12: Per pt.'s son pt. saw Dr. Mcguire in the office - per family rortho ecs wear boot when wt. bearing -Per ED note patient was placed in orthopedic boot with patient to follow-up with orthopedics as an outpatient, 12/14: repeat R ankle/foot xray: -Right Ankle x-ray: Healing fractures of the distal fibula and medial malleolus -Right foot x-ray: No osseous abnormality -X-ray findings were discussed with Dr. Mcguire via phone 12/14., he states no change [...] deep vein thrombosis (DVT) prophylaxis (Z79.899: Other group home (current) drug therapy) -Lovenox Orders: XR Ankle 3+ Views Right XR Foot 3+ Views Right -Plan discussed w/ patient, nursing staff and CRM. -Disposition: Patient is awaiting pre-CERT This report was transcribed using voice recognition software. Every effort was made to ensure accuracy, however, inadvertently computerized finger buff sewer mistakes may be present. Extracted from: Title:APSO Note Author:Roseann PADILLA Date:12/13/22 PLAN: 1. Fracture of ankle (S82.899A: Other fracture of unspecified lower leg, initial encounter for closed fracture) Prior ankle fracture on 12/07/2022 after a mechanical fall at home patient slid out of bed again on 12/09/2022 and squad with 3 tooth grinder had to assist patient to get off the floor. Patient has progressively weakened since ankle fracture. Per right ankle x-ray at [facility] showed acute closed distal fibular fracture. Was [...] service consult Extracted from: Title:ED Note Author:Julio Pham DO Date :12/12/22 Generalized weakness (R53.1: Weakness) Hypertension (I10: Essential (primary) hypertension) Orders: acetaminophen, 650 mg = 2 tab(s), Tab, Oral, Once, Stop date 12/12/22 21:41:00 EST, STAT, Start date 12/12/22 21:41:00 EST, 12/12/22 21:41:00 EST Automated Diff Basic Metabolic Panel CBC w/ Auto Diff ED Physician consult Hospitalist for continued care Influenza A&B Ag Rapid COVID Antigen ([facility]) Saline Lock Insert Troponin 0 Hr. UA With Cult Reflex XR Chest Single View Future Appointments Appointment Date:01/15/2023 03:00:00 PM Scheduled Provider:Efrain ESPARZA MD Location:[facility] Appointment Type: Open Diagnostic Tests Pending * Electrolyte Panel 12/16/22 [facility]01-12-2023 Hospital Discharge instructions* Discharge Instr - CATIA* [...] Contact Information Primary Emergency Contact: Merari [facility] Mobile Relation: Child Secondary Emergency Contact: DEANNA STANTON Mobile Relation: Child Preferred language: Turkish Recreation Facility Manager needed? No Past Surgical History: Past Surgical History: Procedure Laterality Date NECK SURGERY TUBAL LIGATION Immunization History: Immunization History Administered Date(s) Administered COVID-19, PFIZER Bivalent BOOSTER, DO NOT Dilute, (age 12y+), IM, 30 mcg/0.3 mL 09/14/2022 COVID-19, PFIZER PURPLE top, DILUTE for use, (age 12 y+), 30mcg/0.3mL 12/31/2020, 01/21/2021, 08/22/2021 Active Problems: Patient Active Problem List Diagnosis Code Acute diastolic heart failure ([facility]) I50.31 Adult body mass index 40 and over [id number] Aortic valve stenosis I35.0 Benign hypertension I10 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 Edema R60.9 Gastroesophageal reflux disease K21.9 Hallucinations R44.3 Hoarseness R49.0 Hyperglycemia R73.9 Hypothyroidism E03.9 Impacted cerumen H61.20 Mixed hyperlipidemia E78.2 Morbid obesity ([facility]) E66.01 Numbness of hand R20.0 Pain of left lower extremity M79.605 Rheumatoid arthritis ([facility]) M06.9 Spinal stenosis of lumbar region M48.061 Type 2 diabetes mellitus ([facility]) E11.9 Unsteadiness on feet R26.81 Isolation/Infection: Isolation No Isolation Patient Infection Status None to display Nurse Assessment: Last Vital Signs: There were no vitals taken for this visit. Last documented pain score (0-10 scale): Last Weight: Wt Readings from Last 1 Encounters: 10/31/22 250 lb (113.4 kg) Mental Status: {IP PT MENTAL STATUS:} IV Access: { CATIA IV ACCESS:669676407} Nursing Mobility/ADLs: Walking {CHP DME ADLs:033313295} Transfer {CHP DME ADLs:591521876} Bathing {CHP DME ADLs:680968580} Dressing {CHP DME ADLs:115591408} Toileting {CHP DME ADLs:978362955} Feeding {CHP DME ADLs:254932958} Core Filer {CHP DME ADLs:942571881} Med Delivery { CATIA MED Delivery:272905558} Wound Care Documentation and Therapy: Elimination: Continence: Bowel: {YES / NO:} Bladder: {YES / NO:} Urinary Catheter: {Urinary Catheter:811101683} Colostomy/Ileostomy/Ileal Conduit: {YES / NO:} Date of Last BM: No intake or output data in the 24 hours ending 12/07/22 1832 No intake/output data recorded. Safety Concerns: { CATIA Safety Concerns:216627205} Impairments/Disabilities: { CATIA Impairments/Disabilities:890619815} Nutrition Therapy: Current Nutrition Therapy: { CATIA Diet List:849432030} Routes of Feeding: {[facility] DME Other Feedings:043671567} Liquids: {[facility] liquid thickness:13174} Daily Fluid Restriction: {CHP DME Yes amt example:736835287} Last Modified Barium Swallow with Video (Video Swallowing Test): {Done Not Done Date:} Treatments at the Time of Hospital Discharge: Respiratory Treatments: Oxygen Therapy: {Therapy; copd oxygen:01354} Ventilator: {[facility] Vent List:224736825} Rehab Therapies: {THERAPEUTIC INTERVENTION:5208215596} Weight Bearing Status/Restrictions: {[facility] Weight Bearin} Other Medical Equipment (for information only, NOT a DME order): {EQUIPMENT:012472029} Other Treatments: Patient's personal belongings (please select all that are sent with patient): {[facility] DME Belongings:615127030} RN SIGNATURE: {Esignature:878704120} CASE MANAGEMENT/SOCIAL WORK SECTION Inpatient Status Date: Readmission Risk Assessment Score: Readmission Risk Risk of Unplanned Readmission: 0 Discharging to Facility/ Agency Name: Address: Phone: Fax: Dialysis Facility (if applicable) Name: Address: Dialysis Schedule: Phone: Fax: Cotton Bag Sewer/Timing Inspector signature: {Esignature:962158655} PHYSICIAN SECTION Prognosis: {Prognosis:2983182406} Condition at Discharge: { Patient Condition:033212854} Rehab Potential (if transferring to Rehab): {Prognosis:3358547547} Recommended Labs or Other Treatments After Discharge: Physician Certification: I certify the above information and transfer of Aleena Gill is necessary for the continuing treatment of the diagnosis listed and that she requires {Admit to Appropriate Level of Care:72075} for {GREATER/LESS:658165231} 30 days. Update Admission H&P: {CHP DME Changes in HandP:545337598} PHYSICIAN SIGNATURE: {Esignature:535179346} * Attachments The following attachments cannot be sent through Care Everywhere. * Ankle Fracture (Turkish) documented in this encounterBON DIEGO [employer] Work Phone: 1(239) 974-877708-05-2022 Hospital Discharge instructions Patient Education 06/30/2022 08:33:46 Hypertension, Adult, Zjnc-ad-Iszn Hypertension, Adult Hypertension is another name for [...] your doctor. This is important. Medicines Take eszf-jbr-mtmqbvp and prescription medicines only as told by [...] 04/30/2009 Document Revised: 07/23/2019 Document Reviewed: 07/23/2019 [employer] Patient Education 2020 [employer]. Follow Up Care 05/04/2022 08:53:43 With:ISAIAS BECERRA, Efrain Chambers, [facility] Address: [address] [place] [address]- When:Within 3 Month(s) [facility] 03-01-2022 Evaluation + Plan note Future Scheduled Tests Laboratory* HgbA1c 01/24/22 * CBC w/ Auto Diff 01/24/22 * Comprehensive Metabolic Panel 01/24/22 * Lipid Panel 01/24/22 [facility] 12-13-2021 History of Present illness Narrative* Berkley Lisset Garza, SILK EXAMINER - 11/07/2021 10:30 AM EST Images from the original note were not included. [facility] Outpatient Physical Therapy Daily Note Date: 11/07/2021 Patient Name: Aleena Gill : 1935 (86 y.o.) Referring Practitioner: Dr. Efrain Esparza Referral Date : 09/27/21 Diagnosis: Unsteadiness on feet Treatment Diagnosis: Gait ataxia, L LE pain Onset Date: 09/30/21 PT Insurance Information: MCR 20v Total # of Visits Approved: 12 [...] FWW to improve safety and reduce falls. Mcc Goals - Time Frame for longterm goals : 16 visits(POC exp 12/12/21) longterm goal 1: Pt to score > 34/80 on LEFS to improve pt ADLs. longterm goal 2: Pt to maintain Narrow OBED 10sec 2:3 trials without UEs to improve safety in shower. longterm goal 3: Pt to have 4/5 hip ABD strength to improve standing mirela. longterm goal 4: Pt to report no LOB/Falls x2 consecutive weeks to improve safety in the home. Post Treatment Pain: 03/05 Time In: 1032 Time Out: 1108 Timed Code Treatment Minutes: 36 Minutes Total Treatment Time: 36 Minutes Berkley Garza, SILK EXAMINER Date: 11/07/2021 documented in this [facility] [employer] Work Phone: 1(789) 295-624311-07-2021 Note No acute thoracic spine findings. If pain persists, further evaluation with CT scan or MRI could be considered. [facility] RIS [id number] [facility] Vascular Lower Extremities DVT Study Procedure Patient Name BRIDGET Date of Study 06/13/2021 ALEENA Dixon Date of 1935 Gender Female Age 85 year(s) Race RoomNumber Corporate ID # [id number] Patient MR # [id number] Information Technology Director RT Veronica Interpreting Physician Heri Godoy Referring Nurse Referring Physician Efrain Esparza Practitioner Xena Andrews Procedure Type of Study: Veins: Lower Extremities DVT Study,DUP LOWER EXTREMITY VENOUS LEFT. Indications for Study:Pain, leg. Patient Status:Routine. TechnicalQuality:Limited visualization. Limitation reason:Limited exam due to patient unable to tolerate procedure, leg and hip pain. Comments:Patient unable to tolerate procedure and was in too much pain and something else would have to be done. cw Conclusions Summary Patient could not tolerate further evaluation of the calf on the left. Negative for DVT from left groin through popliteal v. Signature ---- Electronically signed by RT Veronica(Hoang)(Zack)(FAHEEM)([facility])(Information Technology Director) on 06/13/2021 01:40 PM Left Impression: CFV, [...] !Prox Femoral !Yes !Yes !None ! + +------ ----+ + + !Mid Femoral !Yes !Yes !None ! + + + + + !Dist Femoral !Yes !Yes !None ! + + + + + !Deep Femoral !Yes !Yes !None ! + + + + + !Popliteal !Yes !Yes !None ! + + + + +[employer] Phone: [phone]) 125-515507-17-2021 Hospital Discharge instructions* Instructions* Xena Andrews MD - 06/11/2021 Alternate ibuprofen with Tylenol 500 to 650 mg every 4 hours for pain control. * Attachments The following attachments cannot be sent through Care Everywhere. * Hip Pain (Turkish) * Hypertension: General Info (Turkish) * Arthritis (Turkish) documented in this [email or web address] Work Phone: evaluation + Plan note Future Appointments Appointment Date:06/30/2022 08:00:00 AM Scheduled Provider:Efrain ESPARZA MD Location:[facility] Appointment Type: Open Future Scheduled Tests Laboratory* HgbA1c 01/24/22 * CBC w/ Auto Diff 01/24/22 * Comprehensive Metabolic Panel 3/1/22 * [facility] Future Appointments Appointment Date:06/30/2022 08:00:00 AM Scheduled Provider:Efrain ESPARZA MD Location:[facility] Future Appointments Appointment Date:10/06/2022 10:00:00 AM Scheduled Provider:Efrain ESPARZA MD Location:[facility] Appointment Type: Open Future Scheduled Tests Laboratory* HgbA1c 06/30/22 * CBC w/ Auto Diff 06/30/22 * Comprehensive Metabolic Panel 06/30/22 * Lipid Panel 06/30/22 * Thyroid Stimulating Hormone 06/30/22 * Free T4 06/30/22 [facility] Evaluation + Plan note Future Appointments Appointment Date:10/06/2022 10:00:00 AM Scheduled Provider:Efrain ESPARZA MD [facility] Diagnosis Pain in left hip- Primary Pain in joint, pelvic region and thigh Pain of left calf Essential hypertension Unspecified essential hypertension Osteoarthritis of left hip, unspecified osteoarthritis type documented in this encounter [employer] Phone: [email or web address] note* Diagnosis Paresthesia Disturbance of skin sensation documented in this encounter [employer] Phone: evalsybxxe note* Diagnosis Pain of left calf documented in this encounter [employer] Phone: [email or web address] note* Diagnosis Mitral valve insufficiency, unspecified etiology documented in this encounter [employer] Phone: [email or web address] note* Diagnosis Atrial fibrillation, unspecified type (HCC) 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 Essential hypertension Unspecified essential hypertension Hyperlipidemia, unspecified hyperlipidemia type Ischemic cardiomyopathy Other specified forms of chronic ischemic heart disease Vitamin D deficiency disease Unspecified vitamin D deficiency documented in this encounter [employer] Phone: [email or web address] note* Diagnosis Atrial fibrillation, unspecified type (HCC) 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 Essential hypertension Unspecified essential hypertension Hyperlipidemia, unspecified hyperlipidemia type Ischemic cardiomyopathy Other specified forms of chronic ischemic heart disease Vitamin D deficiency disease Unspecified vitamin D deficiency documented in this encounter [employer] Phone: [email or web address] note* Diagnosis Atrial fibrillation, unspecified type (HCC) 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 Essential hypertension Unspecified essential hypertension Hyperlipidemia, unspecified hyperlipidemia type Ischemic cardiomyopathy Other specified forms of chronic ischemic heart disease Vitamin D deficiency disease Unspecified vitamin D deficiency documented in this encounter [employer] Phone: evaluation note* Diagnosis Contusion of ribs, right, initial encounter- Primary Contusion of thoracic spine Contusion of lower back, initial encounter documented in this encounter [employer] Phone: evaluation note* Diagnosis Pain in both wrists Pain in joint, forearm documented in this encounter [employer] Phone: evalxllvro note* Diagnosis Aortic valve stenosis, etiology of cardiac valve disease unspecified documented in this encounter [employer] Phone: evaluation note* Diagnosis Atrial fibrillation, unspecified type (HCC) Essential hypertension Unspecified essential hypertension 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 Hyperlipidemia, unspecified hyperlipidemia type Ischemic cardiomyopathy Other specified forms of chronic ischemic heart disease Vitamin D deficiency disease Unspecified vitamin D deficiency Mitral valve insufficiency, unspecified etiology documented in this encounter [employer] Phone: evaluation note* Diagnosis Atrial fibrillation, unspecified type (HCC) Essential hypertension Unspecified essential hypertension 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 Hyperlipidemia, unspecified hyperlipidemia type Ischemic cardiomyopathy Other specified forms of chronic ischemic heart disease Vitamin D deficiency disease Unspecified vitamin D deficiency Mitral valve insufficiency, unspecified etiology documented in this encounter [employer] Phone: evaluation note* Diagnosis Closed fracture of distal end of right fibula, unspecified fracture morphology, initial encounter- Primary documented in this encounter [employer] Phone: evaluation note* Diagnosis Generalized weakness- Primary Other malaise and fatigue Closed fracture of right ankle, initial encounter documented in this encounter [facility] Work Phone: evaluation note* Diagnosis Bilateral carpal tunnel syndrome- Primary Carpal tunnel syndrome Left hip pain Pain in joint, pelvic region and thigh documented [facility] Narrative No data available for this section [facility] Hospital Discharge instructions* Attachments The following attachments cannot be sent through Care Everywhere. * Rib Contusion (Turkish) * Low Back Contusion (Turkish) [facility] [employer] Work Phone: Hospital Discharge instructions No data available for this section [facility] Progress note No data available for this section [facility] Assessments Diagnosis Chronic systolic congestive heart failure (HCC) Chronic systolic heart failure Dyslipidemia Other and unspecified hyperlipidemia Vitamin D deficiency disease Unspecified vitamin D deficiency Hypertension, unspecified type Diagnosis Atrial fibrillation, unspecified type (HCC) 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 Essential hypertension Unspecified essential hypertension Diagnosis Ischemic cardiomyopathy Other specified forms of chronic ischemic heart disease Diagnosis Atrial fibrillation, unspecified type (HCC) 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 Essential hypertension Unspecified [...] unspecified type (HCC) 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 Essential hypertension Unspecified essential hypertension Diagnosis Injury of head, initial encounter- Primary Advance Directives No Advanced Directives Records FoundDocuments on File Type Date Recorded Patient Inweaver Expl anation Advance Directives and Living Will Power of Taxi Driver Documents on File Type Date Recorded Patient Inweaver Expl anation ACP-Advance Directive ACP-Power of Taxi Driver Documents on File Type Date Recorded Patient Inweaver Expl anation ACP-Advance Directive ACP-Power of Taxi Driver Latest Code Status on File Code Status [...] unspecified type (HCC) 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 Essential hypertension Procedures EKG 12 Lead Emiliano Deng MD [address] [place] [address] Status Reason Specialty Diagnoses / Procedures Re ferred By Contact Referred To Contact Closed Cardiology Diagnoses Ischemic cardiomyopathy Procedures ECHO Complete 2D W Doppler W Color HC ECHO NO CONTRAST WITH DOP/COLR Emiliano Deng MD [address] [place] [address] Status Reason Specialty Diagnoses / Procedures Referre d By Contact Referred To Contact Closed Radiology Diagnoses Left leg weakness Lumbosacral radiculopathy Has numbness Procedures MRI lumbar spine without contrast Gaston Parekh M, DO [address] [place] [address] Status Reason Specialty Diagnoses / Procedures Referred By Contact Referred To Contact Pending Review Vascular Lab Diagnoses Bruit Procedures VL DUP CAROTID BILATERAL Emiliano Deng MD [address] [place] [address] [facility] [address] [place] [address] Status Reason Specialty Diagnoses / Procedures Referre d By Contact Referred To Contact Open Radiology Diagnoses Pain of left calf Procedures VL DUP LOWER EXTREMITY VENOUS LEFT Strus, Xnea Porter MD [address] [place] [address] Status Reason Specialty Diagnoses / Procedures Referred By Contact Referred To Contact Pending Review Radiology Diagnoses Pain of left calf Procedures VL DUP LOWER EXTREMITY VENOUS LEFT Strus, Xena Porter MD [address] [place] [address] Status Reason Specialty Diagnoses / Procedures Referre d By Contact Referred To Contact Closed Cardiology Diagnoses Mitral valve insufficiency, unspecified etiology Procedures ECHO Complete 2D W Doppler W Color Emiliano Deng MD [address] [place] [address] Status Reason Specialty Diagnoses / Procedures Re ferred By Contact Referred To Contact Pending Review Cardiology Diagnoses Atrial fibrillation, unspecified type (HCC) 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 Essential hypertension Hyperlipidemia, unspecified hyperlipidemia type Ischemic cardiomyopathy Vitamin D deficiency disease Procedures EKG 12 Lead Emiliano Deng MD [address] [place] [address] Specialty Diagnoses / Procedures Referred By Daphne t Referred To Contact Cardiology Diagnoses Aortic valve stenosis, etiology of cardiac valve disease unspecified Procedures ECHO Complete 2D W Doppler W Color Emiliano Deng MD [address] [place] [address] Referral ID Status Reason Start Date Expiration Date V isits Requested Visits Authorized [id number] Pending Review 08/20/2022 08/20/2023 1 1 Specialty Diagnoses / Procedures Referred By Daphne rey Referred To Contact Orthopaedic Surgery Diagnoses Bilateral carpal tunnel syndrome Procedures M Inj/Asp: bilateral radiocarpal Keena Mcguire, DO [address] [place] [address] Referral ID Status Reason Start Date Expiration Date V isits Requested Visits Authorized [id number] Pending Review 01/03/2024 07/01/2024 1 1 Discharge Instructions * Attachments The following attachments cannot be sent through Care Everywhere. * Head Injury: Closed: General Info (Turkish) documented in this encounter Summary Purpose Family [...] NO CONTRAST WITH DOP/COLR Emiliano Deng MD [address] [place] [address] Status Reason Specialty Diagnoses / Procedures Referre d By Contact Referred To Contact Closed Radiology Diagnoses Left leg weakness Lumbosacral radiculopathy Has numbness Procedures MRI lumbar spine without contrast Gaston Parekh, DO [address] [place] [id number] Status Reason Specialty Diagnoses / Procedures Referred By Contact Referred To Contact Pending Review Vascular Lab Diagnoses Bruit Procedures VL DUP CAROTID BILATERAL Emiliano Deng MD [address] [place] [address] [facility] [address] [place] [address] Reason Comments Fall pt states she was [...] Procedures VL DUP LOWER EXTREMITY VENOUS LEFT Xena Andrews MD [address] [place] [address] Status Reason Specialty Diagnoses / Procedures Referre d By Contact Referred To Contact Closed Cardiology Diagnoses Mitral valve insufficiency, unspecified etiology Procedures ECHO Complete 2D W Doppler W Color Emiliano Deng MD [address] [place] [address] Reason Comments Fall Patient fell into si de of bath tub yesterday morning. No LOC didnt hit head. Has back pain now. Family staets has fallen multiple times over last 6 [address]Dr Esparza has ordered PT to help her get stronger. Specialty Diagnoses / Procedures Referred By Contjuan josé rey Referred To Contact Physical Therapy Diagnoses Unsteadiness on feet Procedures physical therapy Efrain Esparza MD [address] [place] [address] Shanita Henry PT Referral ID Status Reason Start Date Expiration Date Visits Re quested Visits Authorized [id number] Open 10/17/2021 10/17/2022 20 20 Specialty Diagnoses / Procedures Referred By Daphne t Referred To Contact Cardiology Diagnoses Atrial fibrillation, unspecified type (HCC) 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 Essential hypertension Hyperlipidemia, unspecified hyperlipidemia type Ischemic cardiomyopathy Vitamin D deficiency disease Procedures EKG 12 Lead Emiliano Deng MD [address] [place] [address] Referral ID Status Reason Start Date Expiration Date V isits Requested Visits Authorized [id number] Pending Review 09/20/2021 09/20/2022 1 1 Reason [...] weakness Back, MD Андр[address] [place] [address] [facility] [address] [place] [address] Referral ID Status Reason Start Date Expiration Date Visits Re quested Visits Authorized [id number] 1 Reason Comments Pain (XR L HIP ONLY) B/L CTS, req junaid, LXR/Last junaid 08/24/23 maL hip, increase in pain, OK PER MTP ma Ordered Prescriptions (unrec ognized section and content) [...] 0849 (Given - Provider: Dafne Avalos RN) atorvastatin (LIPITOR) tablet 20 mg 20 mg, Oral, DAILY, First dose on Sun12/16/22 at 0900, Until Discontinued 0812 (Given - Provider: Dafne Avalos RN) 0850 (Given - Provider: Shakeel Yoder RN) 0848 (Given - Provider: Dafne Avalos RN) DULoxetine (CYMBALTA) extended release capsule 30 mg 30 mg, Oral, DAILY, First dose on Sun12/16/22 at 0900, Until Discontinued, Do not crush [...] Dafne Avalos RN)2045 (Given - Provider: Osbaldo Zhu, MAUREEN) 0851 (Given - Provider: Shakeel Yoder RN)222 (Given - Provider: Judy Guthrie RN) 0848 (Given - Provider: Dafne Avalos RN)2100 (Due) furosemide (LASIX) tablet 20 mg 20 mg, Oral, DAILY, First dose on Sun12/16/22 at 0900, Until Discontinued 0900 (Automatically Held - Provider: Nicholas Rowan MD) 0900 (Automatically Held - Provider: Nicholas Rowan MD) 0900 (Automatically Held) gabapentin (NEURONTIN) capsule 100 mg 100 mg, Oral, 2 TIMES DAILY, First dose on Sun12/22/22 at 2100, Until Discontinued 0811 (Given - Provider: Dafne Avalos RN)204 (Given - Provider: Osbaldo Zhu RN) 0850 (Given - Provider: Shakeel Yoder RN)2236 (Given - Provider: Judy Guthrie, MAUREEN - Comment: this was given along with her other meds and was scanned along with them. Not sure why it didnt register) 0849 (Given - Provider: Dafne Avalos RN)2100 (Due) levothyroxine (SYNTHROID) tablet 50 mcg 50 mcg, Oral, DAILY, First dose on 12/16/22 at 0700, Until Discontinued, Tube feeding (TF) interaction, obtain physician order to manage, recommend holding TF for 30 minutes before and after dose. 0815 (Given - Provider: Dafne Avalos RN) 0549 (Given - Provider: Osbaldo Zhu, MAUREEN) 06 (Given - Provider: Judy Guthrie RN) lisinopril [...] Avalos RN) 0549 (Given - Provider: Osbaldo Zhu, MAUREEN) 06 (Given - Provider: Judy Guthrie RN) potassium chloride (KLOR-CON) extended release tablet 10 mEq 10 mEq, Oral, DAILY WITH BREAKFAST, First dose on 12/16/22 at 0800, Until Discontinued, Do not crush or break. 0812 (Given - Provider: Dafne Avlaos RN) 0850 (Given - Provider: Shakeel Yoder RN) 0849 (Given - Provider: Dafne Avalos, MAUREEN) spironolactone (ALDACTONE) tablet 25 mg 25 mg, Oral, DAILY, First dose on 12/16/22 at 0900, Until Discontinued 0812 (Given - Provider: Dafne Avaols RN) 0850 (Given - Provider: Shakeel Yoder, MAUREEN) 0849 (Given - Provider: Dafne Avalos, MAUREEN) Vitamin D (CHOLECALCIFEROL) tablet 5,000 Units Labeling may look different. 25 dqh=5073 Units. Please double check dosages., 5,000 Units, Oral, DAILY, First dose on 12/16/22 at 0900, Until Discontinued, Labeling may look different. 25 nqj=6894 Units. Please double check dosages. 0811 (Given - Provider: Dafne Avalos RN) 0850 (Given - Provider: Shakeel Yoder, MAUREEN) 0848 (Given - Provider: Dafne Avalos, MAUREEN) vitamin E capsule 400 Units 400 Units, Oral, DAILY, First dose on 12/25/22 at 1430, Until Discontinued 1407 (Given - Provider: Britany Rosario RN) 0848 (Given - Provider: Dafne Avalos RN) PRN Medication Order 12/24/2022 12/25/2022 12/26/2022 [...] hours. 0403 (Given - Provider: Osbaldo Zhu, RN)2046 (Given - Provider: Osbaldo Zhu, RN) 0549 (Given - Provider: Osbaldo Zuh, RN)2222 (Given - Provider: Judy Guthrie, MAUREEN) 0848 (Given - Provider: Dafne Avalos, MAUREEN) senna (SENOKOT) tablet 17.2 mg 17.2 mg (2 tablet), Oral, 2 TIMES DAILY PRN, Starting on 12/16/22 at 0038, Until Discontinued, Constipation Care Teams (unrecognized sec tion and content) Transportation Program Director Relationship Specialty Start Date End Date Efrain Esparza MD [address] [facility] [place] [facility] [place] [address] PCP - General Internal Medicine 01/10/18 Transportation Program Director Relationship Specialty Start Date End Date Efrain Esparza MD [address] [facility] [place] [address] PCP - General Internal Medicine 01/10/18 Transportation Program Director Relationship Specialty Start Date End Date Efrain Esparza MD [address] [place] [facility] [place] [address] PCP - General Internal Medicine 01/10/18 Transportation Program Director Relationship Specialty Start Date End Date Efrain Esparza MD [address] [place] [facility] [place] [address] PCP - General Internal Medicine 01/10/18 Transportation Program Director Relationship Specialty Start Date End Date Efrain Esparza MD [address] [facility] [place] [address] PCP - General Internal Medicine 01/10/18 Transportation Program Director Relationship Specialty Start Date End Date Efrain Esparza MD [address] [place] [address] PCP - General Internal Medicine 01/10/18 Transportation Program Director Relationship Specialty Start Date End Date Efrain Esparza MD [address] [place] [address] PCP - General Internal Medicine 01/10/18 Transportation Program Director Relationship Specialty Start Date End Date Efrain Esparza MD [address] [place] [address] PCP - General Internal Medicine 01/10/18 Transportation Program Director Relationship Specialty Start Date End Date Efrain Esparza MD [address] [place] [address] PCP - General Internal Medicine 01/10/18 Transportation Program Director Relationship Specialty Start Date End Date Efrain Esparza MD [address] [place] [address] PCP - General Internal Medicine 01/10/18 Transportation Program Director Relationship Specialty Start Date End Date Efrain Esparza MD [address] [place] [address] PCP - General Internal Medicine 05/21/23 INFORMATION SOURCE (unrecogn ized section and content) DATE CREATED AUTHOR 03/11/2023 [facility] DATE CREATED AUTHOR AUTHOR'S ORGANIZ ATION 12/06/2023 Maranda Zhang spigamaliel DATE CREATED AUTHOR AUTHOR'S ORGANIZ ATION 01/04/2024 [facility] DATE CREATED AUTHOR AUTHOR'S ORGANIZ ATION 01/09/2024 [facility] FOR RECORDS PERTAINING TO PATIENTS WHO ARE [...] BE BASED ON THE PRIMARY CLINICAL RECORDS. [facility] [employer] See [facility]. provides no warranty or guarantee of the accuracy or completeness of information in this document.
[2024-02-06 09:11] LABS: Anion Gap 14.7; BUN Creatinine Ratio 23.7; Calcium 8.6 mg/dL (8.5-10.1); Carbon Dioxide 31.6 mmol/L (21.0-32.0); Chloride 99 mmol/L (98-107); Estimated GFR (African America >60 (>=60); Estimated GFR (Non-African Ame 54 (>=60); Glucose 109 mg/dL (74-106); Potassium 3.3 mmol/L (3.5-5.1); Sodium 142 mmol/L (136-145)
== END 2024-02-06 01:44 | disposition home or self-care (01) ==
LOC: LAB 01:43
PROVIDERS: PCP Family Medicine; Visit Provider Family Medicine
DX: Z51.81 Encounter for therapeutic drug level monitoring (principal)
CPT/HCPCS: 36415; 80048; 83880

== ENCOUNTER 2024-07-03 11:15 | Outpatient (REF) | payer MEDICARE, MEDICAID, SELFPAY ==
[2024-07-03 12:15] LABS: Basophils Absolute Auto 0.1 10^3/uL (0.0-0.1); Basophils Percent Auto 0.6 % (0.2-2.0); Eosinophils Absolute Auto 0.6 10^3/uL (0.0-0.7); Eosinophils Percent Auto 5.7 % (0.9-7.0); Hematocrit 37.5 % (36.0-48.0); Hemoglobin 12.8 g/dL (12.0-16.0); Immature Granulocytes Abs Auto 0.02 10^3/uL (0.00-0.03); Immature Granulocytes Pct Auto 0.2 % (0.0-0.5); Lymphocytes Absolute Auto 2.8 10^3/uL (1.2-3.8); Lymphocytes Percent Auto 26.7 % (20.5-60.0); Mean Corpuscular HGB Conc 34.1 g/dL (29.9-35.2); Mean Corpuscular Hemoglobin 31.5 pg (26.7-34.0); Mean Corpuscular Volume 92.4 fL (81.0-99.0); Mean Platelet Volume 9.7 fL (9.5-13.5); Monocytes Absolute Auto 0.8 10^3/uL (0.3-0.8); Monocytes Percent Auto 7.8 % (1.7-12.0); Neutrophils Absolute Auto 6.2 10^3/uL (1.4-6.5); Platelet Count 348 10^3/uL (150-450); Red Blood Count 4.06 10^6/uL (4.20-5.40); Red Cell Distribution Width 12.9 % (11.0-15.0); White Blood Count 10.5 10^3/uL (4.0-11.0)
[2024-07-03 12:18] LABS: Bilirubin Urine NEGATIVE (NEGATIVE); Blood Urine NEGATIVE (NEGATIVE); Clarity Urine SL CLOUDY (CLEAR); Color Urine LT. YELLOW (YELLOW); Glucose Urine UA NEGATIVE (NEGATIVE); Ketones Urine NEGATIVE (NEGATIVE); Leukocyte Esterase Urine MODERATE (NEGATIVE); Nitrite Urine NEGATIVE (NEGATIVE); Protein Urine NEGATIVE (NEG/TRACE)
[2024-07-03 12:25] LABS: Urine Microscopic Indicated YES
[2024-07-03 12:30] LABS: Bacteria Urine LARGE #/HPF (NONE SEEN); Cast Seen? NONE SEEN #/LPF (NONE SEEN); Crystals Seen? None Seen #/HPF (None Seen); Mucus Urine TRACE (NONE SEEN); RBC Urine 0-2 #/HPF (0-2); Squamous Epithelial Cell Urine MODERATE #/LPF (NONE/RARE); Urine Culture Indicated YES; WBC Urine >100 #/HPF (NONE SEEN)
[2024-07-03 13:41] LABS: Anion Gap 10.8; Calcium 9.1 mg/dL (8.5-10.1); Carbon Dioxide 31.8 mmol/L (21.0-32.0); Chloride 97 mmol/L (98-107); Estimated GFR (African America >60 (>=60); Estimated GFR (Non-African Ame >60 (>=60); Glucose 96 mg/dL (74-106); Potassium 3.6 mmol/L (3.5-5.1); Sodium 136 mmol/L (136-145)
== END 2024-07-03 11:16 | disposition home or self-care (01) ==
LOC: LAB 11:15
PROVIDERS: PCP Family Medicine; Visit Provider Nurse Practitioner Family
DX: E78.5 Hyperlipidemia, unspecified (principal); E11.9 Type 2 diabetes mellitus without complications; E66.01 Morbid (severe) obesity due to excess calories; I10 Essential (primary) hypertension; R82.998 Other abnormal findings in urine
CPT/HCPCS: 36415; 80048; 81001; 81003; 85025; 87086; 87150; 87186

== ENCOUNTER 2024-07-06 12:42 | Emergency (ER) | payer MEDICARE, MEDICAID, SELFPAY ==
[2024-07-06] VITALS (28 sets, daily range): BP systolic 102–124; BP diastolic 73–105; PULSE 65–85; TEMP 36.6; O2SAT 87–98; BMI 39.5
--- NOTE | 2024-07-06 12:52 | XR_ITS ---
The [place] [id number] Patient Name: JUAN GILL MRN: [id number] date: 1935 Sex: F Assigned Patient Location: ER Current Patient Location: ER Accession/Order Number: [id number] Exam Date: 07/06/2024 13:40 Report Date: 07/06/2024 14:59 At the request of: ELVIS NOE Procedure: XR chest 1V EXAM: XR chest 1V HISTORY: Frequent falls COMPARISON: 08/08/2022 TECHNIQUE: Frontal view of the chest. FINDINGS: Mild bilateral interstitial prominence. No focal consolidations or pleural effusions. Cardiomegaly. Thoracic spine spondylosis. XR/XR chest 1V IMPRESSION: Cardiomegaly. Mild bilateral interstitial prominence which may represent edema. Electronically authenticated by: CHON SUMMERS Date: 07/06/2024 14:59
--- NOTE | 2024-07-06 12:52 | ECG_ITS ---
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
--- NOTE | 2024-07-06 12:52 | XR_ITS ---
The [address] [address] Patient Name: JUAN GILL MRN: [id number] date: 1935 Sex: F Assigned Patient Location: ER Current Patient Location: ER Accession/Order Number: [id number] Exam Date: 07/06/2024 13:40 Report Date: 07/06/2024 15:06 At the request of: ELVIS NOE Procedure: XR knee RT 3V IMAGES REVIEWED: XR knee RT 3V COMPARISON: 01/25/2023. CLINICAL INDICATION: fall FINDINGS/IMPRESSION: 1. No definite radiographic evidence of acute osseous abnormality of the right knee. 2. No large effusion. 3. Osteopenia. 4. Advanced degenerative change medial compartment right knee with chondrocalcinosis and mild degenerative change of the lateral and patellofemoral compartments. Findings are similar to slightly worsened compared to prior. 5. Fairly prominent diffuse subcutaneous edema of the right knee/lower extremity again seen. 6. Peripheral arterial disease. 7. Suprapatellar enthesopathic change as before. Electronically authenticated by: DIANE WATERMAN Date: 07/06/2024 15:06
--- NOTE | 2024-07-06 12:52 | XR_ITS ---
The [address] [address] Patient Name: JUAN GILL MRN: [id number] date: 1935 Sex: F Assigned Patient Location: ER Current Patient Location: ER Accession/Order Number: [id number] Exam Date: 07/06/2024 13:40 Report Date: 07/06/2024 15:03 At the request of: ELVIS NOE Procedure: XR hip LT min 2V IMAGES REVIEWED: XR hip LT min 2V COMPARISON: 06/11/2021. CLINICAL INDICATION: fall FINDINGS/IMPRESSION: 1. Advanced osteoarthritis of the left hip appears new compared to prior from 06/11/2021. Consider left total hip arthroplasty placement as appropriate. 2. No definite radiographic evidence of acute osseous abnormality of the left hip. Osteopenia. 3. Enthesopathic change at the left greater trochanter. 4. Peripheral arterial disease. Electronically authenticated by: DIANE WATERMAN Date: 07/06/2024 15:03
--- NOTE | 2024-07-06 12:52 | CT_ITS ---
[place] [id number] Patient Name: JUAN GILL MRN: [id number] date: 1935 Sex: F Assigned Patient Location: ER Current Patient Location: ER Accession/Order Number: [id number] Exam Date: 07/06/2024 13:55 Report Date: 07/06/2024 15:02 At the request of: ELVIS NOE Procedure: CT head/brain wo con EXAMINATION: CT head/brain wo con, 07/06/2024 1:55 PM EDT HISTORY: Frequent falls COMPARISON: 01/26/2023 TECHNIQUE: CT scan of the head was performed without IV contrast. CT dose reduction technique was used, including Automated Exposure Control. FINDINGS: BRAIN PARENCHYMA/CSF SPACES: Prominence of the ventricles and sulci compatible with diffuse cerebral atrophy. There is no hemorrhage, mass effect or midline shift. Moderate low attenuation in the white matter consistent with chronic microvascular ischemia. PARANASAL SINUSES: Clear. SKULL BASE AND CALVARIUM: Normal. EXTRACRANIAL SOFT TISSUES: Normal. CT/CT head/brain wo con IMPRESSION: No acute intracranial findings. Electronically authenticated by: CHON SUMMERS Date: 07/06/2024 15:02
--- NOTE | 2024-07-06 12:54 | ED.GENADUL1 ---
HPI HPI - General Adult General Chief complaint: Fall Stated complaint: FREQUENT FALL EVALUATION Time Seen by Provider: 07/06/24 12:48 History of Present Illness HPI narrative: 88-year-old female presents for frequent falls. She reportedly fell twice today. She complains of pain to her left hip and her right knee but she states she did not hurt those when she fell today. She states she did not hit her head. Denies chest pain or abdominal pain or any injury from today's falls. Related Data Previous Rx's ?Medication ?Instructions ?Recorded cephalexin 500 mg capsule 500 mg PO TID 7 days #21 caps 07/06/24 Allergies Allergy/AdvReac Type Severity Reaction Status Date / Time No Known Drug Allergies Allergy Verified 07/06/24 12:48 Opioid HPI Opioid Management Most Recent Opioid Data: No Data to Display Review of Systems ROS Narrative A ten point review of systems is negative except as noted above. Exam Narrative Exam Narrative: Nurses note and vital signs reviewed and patient is not hypoxic. General: The patient appears in no apparent respiratory distress. Skin: Warm, dry, no pallor noted. There is no rash noted. Head: Normocephalic, atraumatic Eye: Normal conjunctiva, no drainage Ears, Nose, Mouth, and Throat: oral mucosa is moist. Nares patent. Cardiovascular: Regular Rate and Rhythm Respiratory: Patient is in no distress, no accessory muscle use, lungs are clear to auscultation, no wheezing, rales or rhonchi Back: non-tender GI: Obese and nontender Musculoskeletal: Some tenderness present in the left knee and the right hip. No deformity bruising or rash or abrasions present. Right hip and left knee are not tender. Ankle is not tender. Neurological: Awake alert and orient Psychiatric: Cooperative Constitutional Vital Signs, click to edit/add: Last Vital Signs Temp 97.9 F 07/06/24 12:52 Pulse 70 07/06/24 13:30 Resp 19 07/06/24 13:30 BP 102/73 07/06/24 12:56 Pulse Ox 90 L 07/06/24 13:30 O2 Del Method Room Air 07/06/24 12:52 Course Vital Signs Vital signs: Vital Signs Blood Pressure 124/105 H 07/06/24 12:50 Pulse Oximetry 95 07/06/24 12:50 Temperature 97.9 F 07/06/24 12:52 Pulse Rate 70 07/06/24 13:30 Respiratory Rate 19 07/06/24 13:30 Blood Pressure 102/73 07/06/24 12:56 Pulse Oximetry 90 L 07/06/24 13:30 Oxygen Delivery Method Room Air 07/06/24 12:52 Medical Decision Making MDM Narrative Medical decision making narrative: X-ray showed no acute findings but significant degenerative changes particular in the hip. This was discussed thoroughly with the patient. Blood work is nonspecific and urinalysis suggest mild UTI. She does not require admission to the hospital at this point and she will be released back to [facility]. Treatment diagnosis and follow-up were discussed with the patient. Lab Data Lab results reviewed: Yes I reviewed the patient's lab results Labs: Lab Results 07/06/24 07/06/24 Range/Units 13:00 15:32 WBC 10.8 (4.0-11.0) 10^3/uL RBC 3.94 L (4.20-5.40) 10^6/uL Hgb 12.4 (12.0-16.0) g/dL Hct 37.0 (36.0-48.0) % MCV 93.9 (81.0-99.0) fL MCH 31.5 (26.7-34.0) pg MCHC 33.5 (29.9-35.2) g/dL RDW 13.0 (11.0-15.0) % Plt Count 344 (150-450) 10^3/uL MPV 8.9 L (9.5-13.5) fL Neut % (Auto) 60.5 (43.0-75.0) % Lymph % (Auto) 24.9 (20.5-60.0) % [place] % (Auto) 7.9 (1.7-12.0) % Eos % (Auto) 5.7 (0.9-7.0) % Baso % (Auto) 0.6 (0.2-2.0) % Neut # (Auto) 6.6 H (1.4-6.5) 10^3/uL Lymph # (Auto) 2.7 (1.2-3.8) 10^3/uL [place] # (Auto) 0.9 H (0.3-0.8) 10^3/uL Eos # (Auto) 0.6 (0.0-0.7) 10^3/uL Baso # (Auto) 0.1 (0.0-0.1) 10^3/uL Abs Immat Gran (auto) 0.04 H (0.00-0.03) 10^3/uL Imm/Tot Granulo (auto) 0.4 (0.0-0.5) % Sodium 141 (136-145) mmol/L Potassium 4.0 (3.5-5.1) mmol/L Chloride 103 (98-107) mmol/L Carbon Dioxide 29.4 (21.0-32.0) mmol/L Anion Gap 12.6 BUN 20.0 H (7.0-18.0) mg/dL Creatinine 0.98 (0.55-1.02) mg/dL Est GFR ( Amer) >60 (>=60) Est GFR (Non-Af Amer) 54 L (>=60) BUN/Creatinine Ratio 20.4 Glucose 130 H (74-106) mg/dL Calcium 9.0 (8.5-10.1) mg/dL Urine Color Lt. yellow (YELLOW) Urine Clarity Clear (CLEAR) Urine pH 6.0 (5.0-9.0) Ur Specific [place] 1.015 (1.005-1.025) Urine Protein Negative (NEG/TRACE) mg/dL Urine Glucose (UA) Negative (NEGATIVE) mg/dL Urine Ketones Negative (NEGATIVE) mg/dL Urine Occult Blood Negative (NEGATIVE) Urine Nitrite Positive A (NEGATIVE) Urine Bilirubin Negative (NEGATIVE) Urine Urobilinogen 1.0 (0.2-1.0) EU/dL Ur Leukocyte Esterase Small A (NEGATIVE) Urine RBC None seen (0-2) #/HPF Urine WBC 5-10 A (NONE SEEN) #/HPF Ur Squamous Epith Cells Rare (NONE/RARE) #/LPF Urine Crystals None seen (None Seen) #/HPF Urine Bacteria Moderate A (NONE SEEN) #/HPF Urine Casts None seen (NONE SEEN) #/LPF Urine Mucus None seen (NONE SEEN) Ur Culture Indicated? Yes Imaging Data Hip x-ray, knee x-ray: Radiologist's impression: ITS Impressions Chest X-Ray 07/06/24 12:52 IMPRESSION: Cardiomegaly. Mild bilateral interstitial prominence which may represent edema. Electronically authenticated by: CHON SUMMERS Date: 07/06/2024 14:[address] 07/06/24 12:52 IMPRESSION: No acute intracranial findings. Electronically authenticated by: CHON SUMMERS Date: 07/06/2024 15:02 Procedure: XR hip LT min 2V IMAGES REVIEWED: XR hip LT min 2V COMPARISON: 06/11/2021. CLINICAL INDICATION: fall FINDINGS/IMPRESSION: 1. Advanced osteoarthritis of the left hip appears new compared to prior from 06/11/2021. Consider left total hip arthroplasty placement as appropriate. 2. No definite radiographic evidence of acute osseous abnormality of the left hip. Osteopenia. 3. Enthesopathic change at the left greater trochanter. 4. Peripheral arterial disease. Electronically authenticated by: DIANE WATERMAN Date: 07/06/2024 15:03 FINDINGS/IMPRESSION: 1. No definite radiographic evidence of acute osseous abnormality of the right knee. 2. No large effusion. 3. Osteopenia. 4. Advanced degenerative change medial compartment right knee with chondrocalcinosis and mild degenerative change of the lateral and patellofemoral compartments. Findings are similar to slightly worsened compared to prior. 5. Fairly prominent diffuse subcutaneous edema of the right knee/lower extremity again seen. 6. Peripheral arterial disease. 7. Suprapatellar enthesopathic change as before. Electronically authenticated by: DIANE WATERMAN Date: 07/06/2024 15:06 ECG Data Attestation: I personally reviewed and interpreted this ECG as follows: (EKG on my interpretation shows sinus rhythm with first-degree block and rate of 71.) Discharge Plan Discharge Stand Alone Forms: Portal Instructions Chief Complaint: Fall Clinical Impression: UTI (urinary tract infection), Frequent falls Patient Disposition: Home, Self-Care Time of Disposition Decision: 16:15 Condition: Good Mode of Transportation: Private Vehicle Prescriptions / Home Meds: New cephalexin 500 mg capsule 500 mg PO TID 7 Days Qty: 21 0RF Print Language: Prydeinig Instructions: Urinary Tract Infection in Older Adults (ED) Referrals: AQUILINO MEYER [Primary Care Provider] - 1 week
--- OUTSIDE RECORDS SUMMARY | 2024-07-06 12:57 | XMS_ITS | CCD ---
Author Organization [facility] Care Team Providers Care Foot Piece Assembler Name Role Phone Efrain Esparza Primary Care Provider [phone] Efrain ESPARZA Primary Care Physician [phone] Isaias BECERRA, Efrain Gillespie Primary Care Provider Isaias BECERRA, Efrain Gillespie Primary Care Provider Isaias BECERRA, Efrain Gillespie Primary Care Provider [phone] Merle Barker Unavailable Unavailable BETSY, DR ROLLE [...] Attending Unavailable EFRAIN ESPARZA Primary Care Unavailable DANIELESRANULFO, EMILIANO S Consulting Unavailable АНДРЕЙ RODRIGUEZ Admitting Unavailable АНДРЕЙ RODRIGUEZ Attending Unavailable EFRAIN ESPARZA Primary Care Unavailable VIGESAA, EMILIANO S Referring Unavailable EFRAIN ESPARZA Primary Care Unavailable VIGESAA, EMILIANO S Referring Unavailable EFRAIN ESPARZA Primary Care Unavailable VIGESAA, EMILIANO S Referring Unavailable EFRAIN ESPARZA Primary Care Unavailable VIGESAA, EMILIANO S Referring Unavailable EFRAIN ESPARZA Primary Care Unavailable VIGESAA, EMILIANO S Attending Unavailable VIGESAA, EMILIANO S Referring Unavailable EFRAIN ESPARZA Primary Care Unavailable KEENA MCGUIRE Referring Unavailable KEENA MCGUIRE Attending Unavailable Efrani Esparza MD Primary Care Provider [phone] Efrain ESPARZA Attending Unavailable Medications Current Medications [...] oral tablet (2 sources) Loop Diuretic Start: bumetanide (Bumex) 1 MG tablet cholecalciferol 0.025 [...] 20 mg/ml oral suspension (2 sources) Uncompetitive S-vgtgdl-K-aspartate Receptor Antagonist, Sigma-1 Agonist Dextromethorphan-gua iFENesin 10-100 [...] 05/10/21 Status: Ordered take 1 capsule by [facility] once daily DULoxetine (CYMBALTA) 60 MG extended [...] # 90 tab(s), Refills(s) 3, Pharmacy: [facility], [address], cm, 10/26/21 13:49:00 EST, Height/Length [...] Daily, # 90 tab(s), Refills(s) 3, Pharmacy: [address], [address], cm, 01/24/22 11:42:00 EST, Height/Length [...] capsule (2 sources) Proton Pump Inhibitor Start: 023 omeprazole (PriLOSEC) [address] capsule ondansetron 4 mg oral tablet (3 sources) Serotonin-3 Receptor Antagonist Start: 023 ondansetron (Zofran) 4 MG tablet Start: 12-21-2022 [...] daily 30 tablet 3 09/19/2021 Active sennosides, assisted 8.6 mg oral tablet (3 sources) Start: 12-26-2022 End: 01-25-2023 take 2 tablets by mouth twice daily as needed for constipation senna (SENOKOT) 8.6 MG tablet Take 2 tablets by mouth 2 times daily as needed (Constipation) 0 12/26/2022 01/25/2023 Active Start: 12-16-2022 senna (SENOKOT ) tablet 17.2 mg Start: 12-15-2022 take 2 tablets by [facility] twice daily as needed Senokot 8.6 mg [...] mL, SubCutaneous, Further dosing per PCP or rubber down, Refills(s) 0, Arthritis Start Date: 08/30/10 Stop [...] International_Unit = 1 cap(s), Oral, Daily, per gas plant repairer Start Date: 02/06/20 Status: Ordered Problems Active [...] current use of drug therapy; Translations: [Other fci (current) drug therapy] Onset: 12-14-2022 Episodic Other [...] Range Facility Consultation Noteon 01-08-20 Consultation Note [id number] #1.00TIFF Normal [facility] No Panel Informationon 01-03 Divine CarterANTHONY 01/07/2024 4:00 PM M Inj/Asp: bilateral radiocarpal on 01/03/2024 1:55 PM Indications: diagnostic evaluation Details: 25 G needle, ultrasound-guided Medications (Right): 6 mg betamethasone acetate-betamethason e sodium phosphate 6 (3-3) MG/ML Medications (Left): 6 mg betamethasone acetate-betamethason e sodium phosphate 6 (3-3) MG/ML Outcome: tolerated well, no immediate complications Consent was given by the patient. [facility] Echocardiographyon Echocardiography [id number]# 1.00TIFF Normal [facility] Retail - Clinical Noteon Retail - Clinical Note [id number] #1.00TIFF Normal [facility] CBC with Diffon 09-06-2023 Abs. Basophil 0.02 k/uL Normal 0.00-0.20 [facility] Comment on above: Performed By: #### Z FAST, CP, CDP, TSHX, MG #### [facility] [address] [place] [address] Digital Traffic Coordinator: Ronaldo Reed MD #### LIPR #### [address] [place] [address] Digital Traffic Coordinator: Jaxon Irwin MD Abs.Imm.Granulocyte 0.01 k/uL Normal 0.00-0.30 [facility] Comment on above: Performed By: #### Z FAST, CP, CDP, TSHX, MG #### [facility] [address] [place] [address] Digital Traffic Coordinator: Ronaldo Reed MD #### LIPR #### [address] [place] [address] Digital Traffic Coordinator: Jaxon Irwin MD Abs.Neutrophil (Seg) 5.48 k/uL Normal 2.5-7.0 [facility] Comment on above: Performed By: #### Z FAST, CP, CDP, TSHX, MG #### [facility] [address] [place], [place] [id number] Digital Traffic Coordinator: Ronaldo Reed MD #### LIPR #### [address] [phone] Digital Traffic Coordinator: Jaxon Irwin MD Basophils/100 WBC (Bld) 0 % Normal 0-2 [facility] Comment on above: Performed By: #### Z FAST, CP, CDP, TSHX, MG #### [facility] [address] [id number] Digital Traffic Coordinator: Ronaldo Reed MD #### LIPR #### [address] [id number] Digital Traffic Coordinator: Jaxon Irwin MD Eosinophils (Bld) [#/Vol] 0.35 10*3/uL Normal 0.00-0.40 [facility] Comment on above: Performed By: #### Z FAST, CP, CDP, TSHX, MG #### [facility] [address] [phone] Digital Traffic Coordinator: Ronlado Reed MD #### LIPR #### [address] [id number] Digital Traffic Coordinator: Jaxon Irwin MD Eosinophils/100 WBC (Bld) 4 % Normal 0-5 [facility] Comment on above: Performed By: #### Z FAST, CP, CDP, TSHX, MG #### [facility] [address] [place], [place] [id number] Digital Traffic Coordinator: Ronaldo Reed MD #### LIPR #### [address] [id number] Digital Traffic Coordinator: Jaxon Irwin MD Erythrocyte distribution width (RBC) [Ratio] 13.3 % Normal 12.1-15.2 [facility] Comment on above: Performed By: #### Z FAST, CP, CDP, TSHX, MG #### [facility] [address] [place], [place] [id number] Digital Traffic Coordinator: Ronaldo Reed MD #### LIPR #### [address] [id number] Digital Traffic Coordinator: Jaxon Irwin MD Hematocrit (Bld) [Volume fraction] 40.2 % Normal 36.0-46.0 [facility] Comment on above: Performed By: #### Z FAST, CP, CDP, TSHX, MG #### [facility] [address] [phone] Digital Traffic Coordinator: Ronaldo Reed MD #### LIPR #### [id number] Digital Traffic Coordinator: Jaxon Irwin MD Hemoglobin (Bld) [Mass/Vol] 13.5 g/dL Normal 12.0-16.0 [facility] Comment on above: Performed By: #### Z FAST, CP, CDP, TSHX, MG #### [facility] [address] [place], [place] [phone] Digital Traffic Coordinator: Ronaldo Reed MD #### LIPR #### [id number] Digital Traffic Coordinator: Jaxon Irwin MD Immature granulocytes/100 WBC (Bld) 0 % Normal 0-5 [facility] Comment on above: Performed By: #### Z FAST, CP, CDP, TSHX, MG #### [facility] [address] [place], [place] [id number] Digital Traffic Coordinator: Ronaldo Reed MD #### LIPR #### [address] [phone] Digital Traffic Coordinator: Jaxon Irwin MD Lymphocytes (Bld) [#/Vol] 2.64 10*3/uL Normal 1.00-4.80 [facility] Comment on above: Performed By: #### Z FAST, CP, CDP, TSHX, MG #### [facility] [address] [place], [place] [phone] Digital Traffic Coordinator: Ronaldo Reed MD #### LIPR #### [address] [phone] Digital Traffic Coordinator: Jaxon Irwin MD Lymphocytes/100 WBC (Bld) 29 % Normal 15-40 [facility] Comment on above: Performed By: #### Martha FAST, CP, CDP, TSHX, MG #### [facility] [address] [place] [address] Digital Traffic Coordinator: Ronaldo Reed MD #### LIPR #### [address] [id number] Digital Traffic Coordinator: Jaxon Irwin MD MCH (RBC) [Entitic mass] 30.8 pg Normal 26.0-34.0 [facility] Comment on above: Performed By: #### Martha FAST, CP, CDP, TSHX, MG #### [facility] [address] [place] [address] Digital Traffic Coordinator: Ronaldo Reed MD #### LIPR #### [address] [id number] Digital Traffic Coordinator: Jaxon Irwin MD MCHC (RBC) [Mass/Vol] 33.6 g/dL Normal 31.0-37.0 [facility] Comment on above: Performed By: #### Z FAST, CP, CDP, TSHX, MG #### [facility] [address] [place] [address] Digital Traffic Coordinator: Ronaldo Reed MD #### LIPR #### [address] [phone] Digital Traffic Coordinator: Jaxon Irwin MD MCV (RBC) [Entitic vol] 91.6 fL Normal 80.0-100.0 [facility] Comment on above: Performed By: #### Z FAST, CP, CDP, TSHX, MG #### [facility] [address] [place], [place] 1131690 Digital Traffic Coordinator: Ronaldo Reed MD #### LIPR #### [address] [address] Digital Traffic Coordinator: Jaxon Irwin MD Monocytes (Bld) [#/Vol] 0.49 10*3/uL Normal 0.00-1.00 [facility] Comment on above: Performed By: #### Martha FAST, CP, CDP, TSHX, MG #### [facility] [address] [place] [address] Digital Traffic Coordinator: Ronaldo Reed MD #### LIPR #### [address] [phone] Digital Traffic Coordinator: Jaxon Irwin MD Monocytes/100 WBC (Bld) 6 % Normal 4-8 [facility] Comment on above: Performed By: #### Martha FAST, CP, CDP, TSHX, MG #### [facility] [address] [place], [place] [phone] Digital Traffic Coordinator: Ronaldo Reed MD #### LIPR #### [address] [address] Digital Traffic Coordinator: Jaxon Irwin MD Neutrophil (Seg) 61 % Normal 47-75 [facility] Comment on above: Performed By: #### Z FAST, CP, CDP, TSHX, MG #### [facility] [address] [place] [address] Digital Traffic Coordinator: Ronaldo Reed MD #### LIPR #### [address] [phone] Digital Traffic Coordinator: Jaxon Irwin MD Platelet mean volume (Bld) [Entitic vol] 9.4 fL Normal 6.0-12.0 [facility] Comment on above: Performed By: #### Z FAST, CP, CDP, TSHX, MG #### [facility] [address] [place], [place] [phone] Digital Traffic Coordinator: Ronaldo Reed MD #### LIPR #### [address] [phone] Digital Traffic Coordinator: Jaxon Irwin MD Platelets (Bld) [#/Vol] 298 10*3/uL Normal 140-450 [facility] Comment on above: Performed By: #### Z FAST, CP, CDP, TSHX, MG #### [facility] [address] [place], [place] [phone] Digital Traffic Coordinator: Ronaldo Reed MD #### LIPR #### [address] [address] Digital Traffic Coordinator: Jaxon Irwin MD RBC (Bld) [#/Vol] 4.39 10*6/uL Normal 4.00-5.20 [facility] Comment on above: Performed By: #### Z FAST, CP, CDP, TSHX, MG #### [facility] [address] [place], [place] [phone] Digital Traffic Coordinator: Ronaldo Reed MD #### LIPR #### [address] [phone] Digital Traffic Coordinator: Jaxon Irwin MD WBC (Bld) [#/Vol] 9.0 10*3/uL Normal 3.5-11.0 [facility] Comment on above: Performed By: #### Z FAST, CP, CDP, TSHX, MG #### [facility] [address] [phone] Digital Traffic Coordinator: Ronaldo Reed MD #### LIPR #### [address] [place], [place] 9305808 Digital Traffic Coordinator: Jaxon Irwin MD Comp Metabolic Profon 2022 Albumin [Mass/Vol] 3.8 g/dL Normal 3.5-5.2 [facility] Comment on above: Performed By: #### Z FAST, CP, CDP, TSHX, MG #### [facility] [address] [place] [address] Digital Traffic Coordinator: Ronaldo Reed MD #### LIPR #### [address] [phone] Digital Traffic Coordinator: Jaxon Irwin MD Alkaline Phos 120 U/L High 35-104 [facility] Comment on above: Performed By: #### Z FAST, CP, CDP, TSHX, MG #### [facility] [address] [place] [address] ( Digital Traffic Coordinator: Ronaldo Reed MD #### LIPR #### [address] [phone] Digital Traffic Coordinator: Jaxon Irwin MD ALT [Catalytic activity/Vol] 15 U/L Normal 5-33 [facility] Comment on above: Performed By: #### Z FAST, CP, CDP, TSHX, MG #### [facility] [address] [place], [place] [phone] Digital Traffic Coordinator: Ronaldo Reed MD #### LIPR #### [address] [phone] Digital Traffic Coordinator: Jaxon Irwin MD Anion gap [Moles/Vol] 11 mmol/L Normal 9-17 [facility] Comment on above: Performed By: #### Z FAST, CP, CDP, TSHX, MG #### [facility] [address] [place] [address] ( Digital Traffic Coordinator: Ronaldo Reed MD #### LIPR #### [address] [phone] Digital Traffic Coordinator: Jaxon rIwin MD AST [Catalytic activity/Vol] 15 U/L Normal <32 [facility] Comment on above: Performed By: #### Z FAST, CP, CDP, TSHX, MG #### [facility] [address] [place] [address] Digital Traffic Coordinator: Ronaldo Reed MD #### LIPR #### [address] [id number] Digital Traffic Coordinator: Jaxon Irwin MD Bilirubin [Mass/Vol] 0.6 mg/dL Normal 0.3-1.2 [facility] Comment on above: Performed By: #### Z FAST, CP, CDP, TSHX, MG #### [facility] [address] [phone] ( Digital Traffic Coordinator: Ronaldo Reed MD #### LIPR #### [address] [phone] Digital Traffic Coordinator: Jaxon Irwin MD BUN/CRE Ratio 30 High 9-20 [facility] Comment on above: Performed By: #### Z FAST, CP, CDP, TSHX, MG #### [facility] [address] [phone] Digital Traffic Coordinator: Ronaldo Reed MD #### LIPR #### [address] [id number] Digital Traffic Coordinator: Jaxon Irwin MD Calcium [Mass/Vol] 10.0 mg/dL Normal 8.6-10.4 [facility] Comment on above: Performed By: #### Z FAST, CP, CDP, TSHX, MG #### [facility] [address] [place] [address] Digital Traffic Coordinator: Ronaldo Reed MD #### LIPR #### [facility] [address] [place], [place] 3263208 Digital Traffic Coordinator: Jaxon Irwin MD Chloride [Moles/Vol] 98 mmol/L Normal 98-107 [facility] Comment on above: Performed By: #### Z FAST, CP, CDP, TSHX, MG #### [facility] [address] [place], [place] [phone] Digital Traffic Coordinator: Ronaldo Reed MD #### LIPR #### [address] [place], [place] [phone] Digital Traffic Coordinator: Jaxon Irwin MD CO2 [Moles/Vol] 28 mmol/L Normal 20-31 [facility] Comment on above: Performed By: #### Z FAST, CP, CDP, TSHX, MG #### [facility] [address] [place], [place] 9078390 Digital Traffic Coordinator: Ronaldo Reed MD #### LIPR #### [facility] [address] [place], [place] [id number] Digital Traffic Coordinator: Jaxon Irwin MD Creatinine [Mass/Vol] 0.8 mg/dL Normal 0.5-0.9 [facility] Comment on above: Performed By: #### Z FAST, CP, CDP, TSHX, MG #### [facility] [address] [place] [address] Digital Traffic Coordinator: Ronaldo Reed MD #### LIPR #### [facility] [address] [place] [address] [id number] Digital Traffic Coordinator: Jaxon Irwin MD GFR/1.73 sq M.predicted among non-blacks MDRD (S/P/Bld) [Vol rate/Area] mL/min/{1.73_m2} Normal >60 [facility] Comment on above: Result Comment: These [...] Z FAST, CP, CDP, TSHX, MG #### [facility] [address] [place] [address] Digital Traffic Coordinator: Ronaldo Reed MD #### LIPR #### [address] [address] Digital Traffic Coordinator: Jaxon Irwin MD Glucose [Mass/Vol] 126 mg/dL High 70-99 [facility] Comment on above: Performed By: #### Z FAST, CP, CDP, TSHX, MG #### [facility] [address] [place] [address] Digital Traffic Coordinator: Ronaldo Reed MD #### LIPR #### [address] [place], [place] 8363408 Digital Traffic Coordinator: Jaxon Irwin MD Potassium [Moles/Vol] 3.9 mmol/L Normal 3.7-5.3 [facility] Comment on above: Performed By: #### Z FAST, CP, CDP, TSHX, MG #### [facility] [address] [place] [address] Digital Traffic Coordinator: Ronaldo Reed MD #### LIPR #### [address] [address] Digital Traffic Coordinator: Jaxon Irwin MD Protein [Mass/Vol] 7.3 g/dL Normal 6.4-8.3 [facility] Comment on above: Performed By: #### Z FAST, CP, CDP, TSHX, MG #### [facility] [address] [place] [address] Digital Traffic Coordinator: Ronaldo Reed MD #### LIPR #### [facility] [address] [place], [place] [phone] Digital Traffic Coordinator: Jaxon Irwin MD Sodium [Moles/Vol] 137 mmol/L Normal 135-144 [facility] Comment on above: Performed By: #### Z FAST, CP, CDP, TSHX, MG #### [facility] [address] [place], [place] 0398390 Digital Traffic Coordinator: Ronaldo Reed MD #### LIPR #### [address] [phone] Digital Traffic Coordinator: Jaxon Irwin MD Urea nitrogen [Mass/Vol] 24 mg/dL High 07-18 [facility] Comment on above: Performed By: #### Z FAST, CP, CDP, TSHX, MG #### [facility] [address] [place], [place] [phone] Digital Traffic Coordinator: Ronaldo Reed MD #### LIPR #### [address] [phone] Digital Traffic Coordinator: Jaxon Irwin MD Lipid Profileon 09-06-2023 Cholesterol [Mass/Vol] 166 mg/dL Normal <200 [facility] Comment on above: Result Comment: Cholesterol Guidelines: <200 Desirable 200-240 Borderline >240 Undesirable Performed By: #### Z FAST, CP, CDP, TSHX, MG #### [facility] [address] [place], [place] [phone] Digital Traffic Coordinator: Ronaldo Reed MD #### LIPR #### [address] [phone] Digital Traffic Coordinator: Jaxon Irwin MD Cholesterol in HDL [Mass/Vol] 54 mg/dL Normal >40 [facility] Comment on above: Result Comment: HDL Guidelines: <40 Undesirable 40-59 Borderline >59 Desirable Performed By: #### Z FAST, CP, CDP, TSHX, MG #### [facility] [address] [place], [place] [phone] Digital Traffic Coordinator: Ronaldo Reed MD #### LIPR #### [facility] [employer] [facility] [place], [place] 0601908 Digital Traffic Coordinator: Jaxon Irwin MD Cholesterol in LDL [Mass/Vol] 90 mg/dL Normal 0-130 [facility] Comment on above: Result Comment: LDL Guidelines: <100 Desirable 100-129 Near to/above Desirable 130-159 Borderline >159 Undesirable Direct (measured) LDL and calculated LDL are not interchangeable tests. Performed By: #### Z FAST, CP, CDP, TSHX, MG #### [facility] [address] [place], [place] [phone] Digital Traffic Coordinator: Ronaldo Reed MD #### LIPR #### [address] [phone] Digital Traffic Coordinator: Jaxon Irwin MD Cholesterol.total/Chol esterol in HDL [Mass ratio] 3.1 {ratio} Normal <5 [facility] Comment on above: Performed By: #### Z FAST, CP, CDP, TSHX, MG #### [facility] [address] [place], [place] 4698990 Digital Traffic Coordinator: Ronaldo Reed MD #### LIPR #### [facility] [employer] [address] [place] [address] Digital Traffic Coordinator: Jaxon Irwin MD Triglyceride [Mass/Vol] 108 mg/dL Normal <150 [facility] Comment on above: Result Comment: Triglyceride Guidelines: <150 Desirable 150-199 Borderline 200-499 High >499 Very high Based on AHA Guidelines for fasting triglyceride, August 2012. Performed By: #### Z FAST, CP, CDP, TSHX, MG #### [facility] [address] [place], [place] [phone] Digital Traffic Coordinator: Ronaldo Reed MD #### LIPR #### [facility] [employer] [address] [place] [address] [phone] Digital Traffic Coordinator: Jaxon Irwin MD Magnesiumon 09-06-2023 Magnesium [Mass/Vol] 1.9 mg/dL Normal 1.6-2.6 [facility] Comment on above: Performed By: #### Z FAST, CP, CDP, TSHX, MG #### [facility] [address] [place] [address] Digital Traffic Coordinator: Ronaldo Reed MD #### LIPR #### [address] [place], [place] [phone] Digital Traffic Coordinator: Jaxon Irwin MD Patient fasting?on 3 Patient fasting? YES Normal [facility] Comment on above: Performed By: #### Martha FAST, CP, CDP, TSHX, MG #### [facility] [address] [facility] [place] [address] Digital Traffic Coordinator: Rnoaldo Reed MD #### LIPR #### [address] [place], [place] [phone] Digital Traffic Coordinator: Jaxon Irwin MD RAD - MISCon 09-06-2023 RAD - MISC [id number] #1.00TIFF Normal [facility] TSH w/reflex to FT4on 2022 Thyroid Stim. Horm. 2.32 uIU/mL Normal 0.30-5.00 [facility] Comment on above: Performed By: #### Z FAST, CP, CDP, TSHX, MG #### [facility] [address] [place] [address] Digital Traffic Coordinator: Ronaldo Reed MD #### LIPR #### [address] [place], [place] [id number] Digital Traffic Coordinator: Jaxon Irwin MD XR CHEST (2 VW)on [...] Godoy Jr., MD 09/06/23 Final result Normal [facility] POTASSIUMon 03-05-2023 Potassium [Moles/Vol] 4.0 mmol/L Normal 3.5-5.1 [facility] Comment on above: Performed By: #### K #### [facility] [address] [place] [address] Dr. Lacey Corado BNPon 02-28-2023 Natriuretic peptide B (Bld) [Mass/Vol] 60.0 pg/mL Normal <=1,800.0 [facility] Comment on above: Performed By: #### B MP, BNP #### [facility] [address] [place] [address] Dr. Lacey Corado PROF CHEM 8 (BAS METB)on Anion gap [Moles/Vol] 10.8 mmol/L Normal [facility] Comment on above: Performed By: #### B MP, BNP #### [facility] [address] [place] [address] Dr. Lacey Corado Calcium [Mass/Vol] 9.0 mg/dL Normal 8.5-10.1 [facility] Comment on above: Performed By: #### B MP, BNP #### [facility] [address] [place] [address] Dr. Lacey Corado Chloride [Moles/Vol] 103 mmol/L Normal 98-107 [facility] Comment on above: Performed By: #### B MP, BNP #### [facility] [address] [place] [address] Dr. Lacey Corado CO2 [Moles/Vol] 28.5 mmol/L Normal 21.0-32.0 [facility] Comment on above: Performed By: #### B MP, BNP #### [facility] [address] [place] [address] Dr. Lacey Corado Creatinine [Mass/Vol] 0.81 mg/dL Normal 0.55-1.02 [facility] Comment on above: Performed By: #### B MP, BNP #### [facility] [address] [place] [address] Dr. Lacey Corado EGFR-AF BURKINAN >60 Normal >=60 [facility] Comment on above: Performed By: #### B MP, BNP #### [facility] [address] [address] [address] Lacey Corado EGFR-NON AF BURKINAN >60 Normal >=60 [facility] Comment on above: Performed By: #### B MP, BNP #### [facility] [address] [place] [address] Dr. Lacey Corado Glucose [Mass/Vol] 111 mg/dL Critically high 74-106 T [facility] Comment on above: Performed By: #### B MP, BNP #### [facility] [address] [place] [address] Dr. Lacey Corado Potassium [Moles/Vol] 3.3 mmol/L Critically low 3.5-5.1 [facility] Comment on above: Performed By: #### B MP, BNP #### [facility] [address] [place] [address] Dr. Lacey Corado Sodium [Moles/Vol] 139 mmol/L Normal 136-145 [facility] Comment on above: Performed By: #### B MP, BNP #### [facility] [address] [place] [address] Dr. Lacey Corado Urea nitrogen [Mass/Vol] 14.0 mg/dL Normal 7.0-18.0 [facility] Comment on above: Performed By: #### B MP, BNP #### [facility] [address] [place] [address] Dr. Lacey Corado Urea nitrogen/Creatinine [Mass ratio] 17.3 mg/mg Normal [facility] Comment on above: Performed By: #### B MP, BNP #### [facility] [address] [place] [address] Dr. Lacey Corado PROF CHEM 8 (BAS METB)on Anion gap [Moles/Vol] 14.1 mmol/L Normal [facility] Comment on above: Performed By: #### B MP ####[facility] [address] [place], [place] [address]Dr. Lacey Corado Calcium [Mass/Vol] 9.2 mg/dL Normal 8.5-10.1 [facility] Comment on above: Performed By: #### B MP ####[facility] [address] [place], [place] [address]Dr. Lacey Corado Chloride [Moles/Vol] 103 mmol/L Normal 98-107 [facility] Comment on above: Performed By: #### B MP ####[facility] X[address] [place], [place] [address]Dr. Lacey Corado CO2 [Moles/Vol] 28.4 mmol/L Normal 21.0-32.0 [facility] Comment on above: Performed By: #### B MP ####[facility] J[address] [place], [place] [address]Dr. Lacey Corado Creatinine [Mass/Vol] 0.71 mg/dL Normal 0.55-1.02 [facility] Comment on above: Performed By: #### B MP ####[facility] Tw[address]xy[address] [place], [place] [address]Dr. Lacey Corado EGFR-AF BURKINAN >60 Normal >=60 [facility] Comment on above: Performed By: #### B MP ####[facility] [address] [place], [place] [address]Dr. Lacey Corado EGFR-NON AF BURKINAN >60 Normal >=60 [facility] Comment on above: Performed By: #### B MP ####[facility] Ecysijgtoh[address] [place], [place] [address]Dr. Lacey Corado Glucose [Mass/Vol] 139 mg/dL Critically high 74-106 [facility] Comment on above: Performed By: #### B MP ####[facility] Neanmhgeep[address] [place], [place] [address]Dr. Lacey Corado Potassium [Moles/Vol] 3.5 mmol/L Normal 3.5-5.1 [facility] Comment on above: Performed By: #### B MP ####[facility] Ykmnd[address] [place], [place] [address]Dr. Lacey Mak Sodium [Moles/Vol] 142 mmol/L Normal 136-145 [facility] Comment on above: Performed By: #### B MP ####[facility] Verliiwbyu[address] [place], [place] [address]Dr. Maria Fernandagaurav Mak Urea nitrogen [Mass/Vol] 14.0 mg/dL Normal 7.0-18.0 [facility] Comment on above: Performed By: #### B MP ####[facility] [address] [place], [place] [address]Dr. Lacey Corado Urea nitrogen/Creatinine [Mass ratio] 19.7 mg/mg Normal [facility] Comment on above: Performed By: #### B MP ####[facility] Uk[address]fh[address] [place], [place] [address]Dr. Lacey Mak CBC AUTO DIFFon 01-26-2023 BASO # 0.1 103/ul Normal 0.0-0.1 [facility] Comment on above: Performed By: #### C BC ####[facility] Opfhnccabl[address] [place], [place] [address]Dr. Lacey Corado Basophils/100 WBC (Bld) 0.5 % Normal 0.2-2.0 [facility] Comment on above: Performed By: #### C BC ####[facility] Kqmyts[address]ce[address] [place], [place] [address]Dr. Lacey Corado EO # 0.4 103/ul Normal 0.0-0.[address] [facility] Comment on above: Performed By: #### C BC ####[facility] Qory[address]ou[address] [place], [place] [address]Dr. Lacey Corado Eosinophils/100 WBC (Bld) 3.6 % Normal 0.9-7.[address] [facility] Comment on above: Performed By: #### C BC ####[facility] W[address]pr[address]al[address] [place], [place] [address]Dr. Lacey Corado Erythrocyte distribution width (RBC) [Ratio] 13.6 % Normal 11.0-15.[address] [facility] Comment on above: Performed By: #### C BC ####[facility] [address] [address]Dr. Lacey Corado Hematocrit (Bld) [Volume fraction] 37.9 % Normal 36.0-48.[address] [facility] Comment on above: Performed By: #### C BC ####[facility] [address] [address]Dr. Lacey Corado Hemoglobin (Bld) [Mass/Vol] 12.4 g/dL Normal 12.0-16.[address] [facility] Comment on above: Performed By: #### C BC ####[facility] [address] [address]Dr. Lacey Mak IG # 0.04 10e3/ul Critically high 0.00-0.03 [facility] Comment on above: Performed By: #### C BC ####[facility] Mjok[address]utlf[address] [place], [place] [address]Dr. Lacey Corado IG % 0.4 % Normal 0.0-0.5 [facility] Comment on above: Performed By: #### C BC ####[facility] Jcjksziqmu[address] [place], [place] [address]Dr. Lacey Mak LYMPH # 1.9 103/ul Normal 1.2-3.[address] [facility] Comment on above: Performed By: #### C BC ####[facility] Mpxfdfyspn[address] [place], [place] [address]Dr. Lacey Mak Lymphocytes/100 WBC (Bld) 18.6 % Critically low 20.5-60.[address] [facility] Comment on above: Performed By: #### C BC ####[facility] Mb[address]jc[address] [place], [place] [address]DrJossy Lacey Mak MANUAL DIFF REQ NO Normal [facility] Comment on above: Performed By: #### C BC ####[facility] X[address]mf[address] [place], [place] [address]Dr. Lacey Corado MCH (RBC) [Entitic mass] 30.5 pg Normal 26.7-34.[address] [facility] Comment on above: Performed By: #### C BC ####[facility] [address] [address]Dr. Lacey Corado MCHC (RBC) [Mass/Vol] 32.7 g/dL Normal 29.9-35.[address] [facility] Comment on above: Performed By: #### C BC ####[facility] S[address]zn[address]uc[address] [place], [place] [address]Dr. Lacey Corado MCV (RBC) [Entitic vol] 93.3 fL Normal 81.0-99.[address] [facility] Comment on above: Performed By: #### C BC ####[facility] Ndoz[address]qi[address] [place], [place] [address]Dr. Lacey Corado MONO # 0.8 103/ul Normal 0.3-0.[address] [facility] Comment on above: Performed By: #### C BC ####[facility] Xbtmvtannn[address] [place], [place] [address]Dr. Lacey Corado Monocytes/100 WBC (Bld) 7.8 % Normal 1.7-12.[address] [facility] Comment on above: Performed By: #### C BC ####[facility] Nmcywhw[address] [place], [place] [address]Dr. Lacey Corado NEUT # 7.0 103/ul Critically high 1.4-6.[address] [facility] Comment on above: Performed By: #### C BC ####[facility] Jqef[address]ayu[address] [place], [place] [address]Dr. Lacey Corado Neutrophils/100 WBC (Bld) 69.1 % Normal 43.0-75.[address] [facility] Comment on above: Performed By: #### C BC ####[facility] L[address]tbsrn[address] [place], [place] [address]Dr. Lacey Corado Platelet mean volume (Bld) [Entitic vol] 9.4 fL Critically low 9.5-13.[address] [facility] Comment on above: Performed By: #### C BC ####[facility] [address] [place], [place] [address]Zh. Lacey Corado PLT 355 103/ul Normal 150-450 [facility] Comment on above: Performed By: #### C BC ####[facility] [address] [place], [place] [address]Vx. Lacey Corado RBC 4.06 106/ul Critically low 4.20-5.40 [facility] Comment on above: Performed By: #### C BC ####[facility] [address] [place], [place] [address]Jv. Lacey Corado WBC 10.1 103/ul Normal 4.0-11.0 [facility] Comment on above: Performed By: #### C BC ####[facility] [address] [place], [place] [address]Kg. Lacey Corado CT HEAD WO CONon 01-26-2023 [...] by: Reyes TRACY Date: 2023-01-26 01:23 Normal [facility] PROF 14(COMP METB)on 023 Albumin [Mass/Vol] 3.3 g/dL Critically low 3.4-5.[address] [facility] Comment on above: Performed By: #### C MP #### [facility] [address] [address] [address] Lacey Corado Albumin/Globulin [Mass ratio] 0.8 {ratio} Normal [facility] Comment on above: Performed By: #### C MP #### [facility] [address] [address] [address] Lacey Corado ALP [Catalytic activity/Vol] 134 U/L Critically high 46-116 [facility] Comment on above: Performed By: #### C MP #### [facility] [address] [address] [address] Lacey Corado ALT [Catalytic activity/Vol] 21 U/L Normal 14-59 [facility] Comment on above: Performed By: #### C MP #### [facility] [address] [address] [address] Lacey Corado Anion gap [Moles/Vol] 15.5 mmol/L Normal [facility] Comment on above: Performed By: #### C MP #### [facility] [address] [place] [address] Dr. Lacey Corado AST [Catalytic activity/Vol] 19 U/L Normal 15-37 [facility] Comment on above: Performed By: #### C MP #### [facility] [address] [place] [address] Dr. Lacye Cordao Bilirubin [Mass/Vol] 0.5 mg/dL Normal 0.2-1.0 [facility] Comment on above: Performed By: #### C MP #### [facility] [address] [place] [address] Dr. Lacey Corado Calcium [Mass/Vol] 9.1 mg/dL Normal 8.5-10.1 [facility] Comment on above: Performed By: #### C MP #### [facility] [address] [address] [address] Lacey Corado Chloride [Moles/Vol] 106 mmol/L Normal 98-107 [facility] Comment on above: Performed By: #### C MP #### [facility] [address] [address] [address] Lacey Corado CO2 [Moles/Vol] 26.2 mmol/L Normal 21.0-32.0 [facility] Comment on above: Performed By: #### C MP #### [facility] [address] [address] [address] Lacey Corado Creatinine [Mass/Vol] 0.95 mg/dL Normal 0.55-1.02 [facility] Comment on above: Performed By: #### C MP #### [facility] [address] [address] [address] Lacey Corado EGFR-AF BURKINAN >60 Normal >=60 [facility] Comment on above: Performed By: #### C MP #### [facility] [address] [address] [address] Lacey Corado EGFR-NON AF BURKINAN 56 mL/min/1.73m2 Critically low >=60 [facility] Comment on above: Performed By: #### C MP #### [facility] [address] [address] [address] Lacey Corado Globulin (S) [Mass/Vol] 4.0 g/dL Normal [facility] Comment on above: Performed By: #### C MP #### [facility] [address] [address] [address] Lacey Corado Glucose [Mass/Vol] 135 mg/dL Critically high 74-106 [facility] Comment on above: Performed By: #### C MP #### [facility] [address] [address] [address] Lacey Corado Potassium [Moles/Vol] 3.7 mmol/L Normal 3.5-5.1 [facility] Comment on above: Performed By: #### C MP #### [facility] [address] [address] [address] Lacey Corado Protein [Mass/Vol] 7.3 g/dL Normal 6.4-8.2 [facility] Comment on above: Performed By: #### C MP #### [facility] [address] [address] [address] Lacey Corado Sodium [Moles/Vol] 144 mmol/L Normal 136-145 [facility] Comment on above: Performed By: #### C MP #### [facility] [address] [address] [address] Lacey Corado Urea nitrogen [Mass/Vol] 17.0 mg/dL Normal 7.0-18.0 [facility] Comment on above: Performed By: #### C MP #### [facility] [address] [address] [address] Lacey Corado Urea nitrogen/Creatinine [Mass ratio] 17.9 mg/mg Normal [facility] Comment on above: Performed By: #### C MP #### [facility] [address] [place] [address] Dr. Lacey Corado PROTIMEon 01-26-2023 INR Coag (PPP) [Relative time] 1.03 {INR} Normal [facility] Comment on above: Performed By: #### P TT, PT #### [facility] [address] [place] [address] Dr. Lacey Corado INR GUIDELINES SEE BELOW Normal [facility] Comment on above: Result Comment: JAD RED INR: 2.0 - 3.0 CONDITIONS NOT LISTED BELOW 2.5 - 3.5 FOR PROSTHETIC HEART VALVE REPLACEMENT 2.5 - 3.5 RECURRENT THROMBOSIS Performed By: #### P TT, PT #### [facility] [address] [place] [address] Dr. Lacey Corado PT Coag (PPP) [Time] 10.9 s Normal 9.0-11.[address] [facility] Comment on above: Performed By: #### P TT, PT #### [facility] [address] [place] [address] Dr. Lacey Corado PTTon 01-26-2023 aPTT Coag (Bld) [Time] 22.2 s Critically low 22.3-36.[address] [facility] Comment on above: Performed By: #### P TT, PT #### [facility] [address] [place] [address] Dr. Lacey Corado XR FEMUR RTon 01-26-2023 [...] right femoral head is excluded from the [id number]. There are advanced degenerative changes of the [...] Reyes TRACY Date: 2023-01-26 01:[address] [facility] EKG Rhythm Stripon 3 [facility] EKG Rhythm Stripon 3 [facility][note 3[facility] RID[facility] LAB [facility] R[facility] R[facility] LAB [facility] EKG Rhythm Stripon 3 [facility] R[facility] with 1 degree AV block [facility] with 1st degree AV block [facility] R[facility] EKG Rhythm Stripon 3 [facility] R[facility] LAB [facility] R[facility] LAB [facility] R[facility] LAB [facility] Basic Metabolic Panelon - Anion gap [Moles/Vol] 10 mmol/L 9 - 17 mmol/L [facility] Calcium [Mass/Vol] 9.2 mg/dL 8.6 - 10. 4 mg/dL [facility] Chloride [Moles/Vol] 101 mmol/L 98 - 10 7 mmol/L [facility] CO2 [Moles/Vol] 26 mmol/L 20 - 31 mmol/L [facility] Creatinine [Mass/Vol] 0.9 mg/dL 0.50 - 0.90 mg/dL [facility] GFR/1.73 sq M.predicted MDRD (S/P/Bld) [Vol rate/Area] - PINF [facility] Comment on above: These results are [...] 100 mg/dL High 70 - 99 mg/dL [facility] Interpretation and review of laboratory results Abnormal [facility] Potassium [Moles/Vol] 4.3 mmol/L 3.7 - 5.3 mmol/L [facility] Sodium [Moles/Vol] 137 mmol/L 135 - 144 mmol/L [facility] Urea nitrogen (BldV) [Mass/Vol] 37 mg/dL High 8 - 23 mg/dL [facility] Urea nitrogen/Creatinine (Bld) [Mass ratio] 41 High 9 - 20 [facility] Basic Metabolic Profon 12-22 Anion gap [Moles/Vol] 10 mmol/L Normal 9-17 [facility] Comment on above: Performed By: #### U AX #### [facility] [address] [place] [address] Digital Traffic Coordinator: oRnaldo Reed MD BUN/CRE Ratio 41 High 9-20 [facility] Comment on above: Performed By: #### U AX #### [facility] [address] [place] [address] Digital Traffic Coordinator: Ronaldo Reed MD Calcium [Mass/Vol] 9.2 mg/dL Normal 8.6-10.4 [facility] Comment on above: Performed By: #### U AX #### [facility] [address] [place], [place] [id number] Digital Traffic Coordinator: Ronaldo Reed MD Chloride [Moles/Vol] 101 mmol/L Normal 98-107 [facility] Comment on above: Performed By: #### U AX #### [facility] [address] [place] [address] Digital Traffic Coordinator: Ronaldo Reed MD CO2 [Moles/Vol] 26 mmol/L Normal 20-31 [facility] Comment on above: Performed By: #### U AX #### [facility] [address] [place], [place] [id number] Digital Traffic Coordinator: Ronaldo Reed MD Creatinine [Mass/Vol] 0.90 mg/dL Normal 0.50-0.90 [facility] Comment on above: Performed By: #### U AX #### [facility] [address] [place] [address] Digital Traffic Coordinator: Ronaldo Reed MD GFR/1.73 sq M.predicted among non-blacks MDRD (S/P/Bld) [Vol rate/Area] mL/min/{1.73_m2} Normal >60 [facility] Comment on above: Result Comment: These [...] secretion. Performed By: #### U AX #### [facility] [address] [place] [address] Digital Traffic Coordinator: Ronaldo Reed MD Glucose [Mass/Vol] 100 mg/dL High 70-99 [facility] Comment on above: Performed By: #### U AX #### [facility] [address] [place] [address] Digital Traffic Coordinator: Ronaldo Reed MD Potassium [Moles/Vol] 4.3 mmol/L Normal 3.7-5.3 [facility] Comment on above: Performed By: #### U AX #### [facility] [address] [place] [address] Digital Traffic Coordinator: Ronaldo Reed MD Sodium [Moles/Vol] 137 mmol/L Normal 135-144 [facility] Comment on above: Performed By: #### U AX #### [facility] [address] [place] [address] Digital Traffic Coordinator: Ronaldo Reed MD Urea nitrogen [Mass/Vol] 37 mg/dL High 8-23 [facility] Comment on above: Performed By: #### U AX #### [facility] [address] [place] [address] Digital Traffic Coordinator: Ronaldo Reed MD EKG 12 Leadon 12-22-2022 Atrial Rate 75 BPM [facility] Phone: P Table [place] 26 degrees [facility] [employer] Phone: P-R Interval 222 ms [facility] [employer] Phone: Q-T Interval 376 ms [facility] Phone: QRS Duration 92 ms [facility] Phone: QTc Calculation (Bazett) 419 ms [facility] [employer] Phone: R Table [place] 12 degrees [facility] Work Phone: T Table [place] 14 degrees [facility] Work Phone: Ventricular Rate 75 BPM [facility] Work Phone: Sinus rhythm with 1st degree A-V block Possible Anterior infarct , age undetermined Abnormal ECG [facility] Андрей Hooker MD - 12/22/2022 Sinus rhythm with 1st degree A-V block Possible Anterior infarct , age undetermined Abnormal ECG [facility] Work Phone: [facility] Work Phone: EKG Rhythm Stripon 3 [facility] absent T wave? prolonged QT? [facility] absent T wave? prolonged QT? [facility] Troponinon 12-22-2022 Troponin, High Sens 33 ng/L High 0-14 [facility] Comment on above: Result Comment: High Sensitivity Troponin values cannot be compared with other Troponin methodologies. Performed By: #### U AX #### [facility] [address] [place] [address] Digital Traffic Coordinator: Ronaldo Reed MD Basic Metabolic Panelon 11-27 Anion gap [Moles/Vol] 12 mmol/L 9 - 17 mmol/L [facility] Calcium [Mass/Vol] 9.6 mg/dL 8.6 - 10. 4 mg/dL [facility] Chloride [Moles/Vol] 100 mmol/L 98 - 10 7 mmol/L [facility] CO2 [Moles/Vol] 22 mmol/L 20 - 31 mmol/L [facility] Creatinine [Mass/Vol] 1.26 mg/dL High 0.50 - 0.90 mg/dL [facility] GFR/1.73 sq M.predicted MDRD (S/P/Bld) [Vol rate/Area] 42 mL/min/{1.73_m2} Low - PINF [facility] Comment on above: These results are [...] 119 mg/dL High 70 - 99 mg/dL [facility] Interpretation and review of laboratory results Abnormal [facility] Potassium [Moles/Vol] 5.2 mmol/L 3.7 - 5.3 mmol/L [facility] Sodium [Moles/Vol] 134 mmol/L Low 135 - 144 mmol/L [facility] Urea nitrogen (BldV) [Mass/Vol] 38 mg/dL High 8 - 23 mg/dL [facility] Urea nitrogen/Creatinine (Bld) [Mass ratio] 30 High 9 - 20 [facility] Basic Metabolic Profon 12-21 Anion gap [Moles/Vol] 12 mmol/L Normal 9-17 [facility] Comment on above: Performed By: #### U AX #### [facility] [address] [place] [address] Digital Traffic Coordinator: Ronaldo Reed MD BUN/CRE Ratio 30 High 9-20 [facility] Comment on above: Performed By: #### U AX #### [facility] [address] [place] [address] Digital Traffic Coordinator: Ronaldo Reed MD Calcium [Mass/Vol] 9.6 mg/dL Normal 8.6-10.4 [facility] Comment on above: Performed By: #### U AX #### [facility] [address] [place] [address] Digital Traffic Coordinator: Ronaldo Reed MD Chloride [Moles/Vol] 100 mmol/L Normal 98-107 [facility] Comment on above: Performed By: #### U AX #### [facility] [address] [place], [place] [id number] Digital Traffic Coordinator: Ronaldo Reed MD CO2 [Moles/Vol] 22 mmol/L Normal 20-31 [facility] Comment on above: Performed By: #### U AX #### [facility] [address] [place], [place] [id number] Digital Traffic Coordinator: Ronaldo Reed MD Creatinine [Mass/Vol] 1.26 mg/dL High 0.50-0.90 [facility] Comment on above: Performed By: #### U AX #### [facility] [address] [place] [address] Digital Traffic Coordinator: Ronaldo Reed MD GFR/1.73 sq M.predicted among non-blacks MDRD (S/P/Bld) [Vol rate/Area] 42 mL/min/{1.73_m2} Low >60 [facility] Comment on above: Result Comment: These [...] secretion. Performed By: #### U AX #### [facility] [address] [place] [address] Digital Traffic Coordinator: Ronaldo Reed MD Glucose [Mass/Vol] 119 mg/dL High 70-99 [facility] Comment on above: Performed By: #### U AX #### [facility] [address] [place] [address] Digital Traffic Coordinator: Ronaldo Reed MD Potassium [Moles/Vol] 5.2 mmol/L Normal 3.7-5.3 [facility] Comment on above: Performed By: #### U AX #### [facility] [address] [place] [address] Digital Traffic Coordinator: Ronaldo Reed MD Sodium [Moles/Vol] 134 mmol/L Low 135-144 [facility] Comment on above: Performed By: #### U AX #### [facility] [address] [place] [address] Digital Traffic Coordinator: Ronaldo Reed MD Urea nitrogen [Mass/Vol] 38 mg/dL High 8-23 [facility] Comment on above: Performed By: #### U AX #### [facility] [address] [place] [address] Digital Traffic Coordinator: Ronaldo Reed MD CBC with Auto Differentialon 12-21-2022 Absolute Eos # 0.30 [facility] Absolute Lymph # 2.50 [facility] Absolute Owen # 0.60 [facility] Basophils (Bld) [#/Vol] 0.00 10*3/uL [facility] Basophils/100 WBC (Bld) 0 % 0 - 2 % [facility] Differential Type YES [facility] Eosinophils/100 WBC (Bld) 2 % 0 - 5 % [facility] Hematocrit (Bld) [Volume fraction] 34.5 % Low 36 - 46 % [facility] Hemoglobin (Bld) [Mass/Vol] 11.4 g/dL Low 12.0 - 16.0 g/dL [facility] Interpretation and review of laboratory results Abnormal [facility] Lymphocytes/100 WBC (Bld) 23 % 15 - 40 % [facility] MCH (RBC) [Entitic mass] 31.5 pg 26 - 34 pg [facility] MCHC (RBC) [Mass/Vol] 33.0 g/dL 31 - 37 g/dL [facility] MCV (RBC) [Entitic vol] 95.2 fL 80 - 100 fL [facility] Monocytes/100 WBC (Bld) 5 % 4 - 8 % [facility] Platelet distribution width (Bld) [Ratio] 14.1 % 12.1 - 15.2 % [facility] Platelets (Bld) [#/Vol] 428 10*3/uL [facility] RBC (Bld) [#/Vol] 3.63 10*6/uL Low 4.0 - 5.2 m/uL [facility] Segmented neutrophils/100 WBC (Bld) 70 % 47 - 75 % [facility] Segs Absolute 7.50 High [facility] WBC (Bld) [#/Vol] 10.9 10*3/uL [facility] CBC with Diffon 12-21-2022 Abs. Basophil 0.00 k/uL Normal 0.0-0.2 [facility] Comment on above: Performed By: #### C DP, TROPI #### [facility] [address] [place] [address] Digital Traffic Coordinator: Ronaldo Reed MD Abs.Neutrophil (Seg) 7.50 k/uL High 2.5-7.0 [facility] Comment on above: Performed By: #### C DP, TROPI #### [facility] [address] [place], [place] [id number] Digital Traffic Coordinator: Ronaldo Reed MD Auto Diff Performed YES Normal [facility] Comment on above: Performed By: #### C DP, TROPI #### [facility] [address] [place] [address] Digital Traffic Coordinator: Ronaldo Reed MD Basophils/100 WBC (Bld) 0 % Normal 0-2 [facility] Comment on above: Performed By: #### C DP, TROPI #### [facility] [address] [place], [place] [id number] Digital Traffic Coordinator: Ronaldo Reed MD Eosinophils (Bld) [#/Vol] 0.30 10*3/uL Normal 0.0-0.4 [facility] Comment on above: Performed By: #### C DP, TROPI #### [facility] [address] [place] [address] Digital Traffic Coordinator: Ronaldo Reed MD Eosinophils/100 WBC (Bld) 2 % Normal 0-5 [facility] Comment on above: Performed By: #### C DP, TROPI #### [facility] [address] [place] [address] Digital Traffic Coordinator: Ronaldo Reed MD Erythrocyte distribution width (RBC) [Ratio] 14.1 % Normal 12.1-15.2 [facility] Comment on above: Performed By: #### C DP, TROPI #### [facility] [address] [place] [address] Digital Traffic Coordinator: Ronaldo Reed MD Hematocrit (Bld) [Volume fraction] 34.5 % Low 36-46 [facility] Comment on above: Performed By: #### C DP, TROPI #### [facility] [address] [place] [address] Digital Traffic Coordinator: Ronaldo Reed MD Hemoglobin (Bld) [Mass/Vol] 11.4 g/dL Low 12.0-16.0 [facility] Comment on above: Performed By: #### C DP, TROPI #### [facility] [address] [place] [address] Digital Traffic Coordinator: Ronaldo Reed MD Lymphocytes (Bld) [#/Vol] 2.50 10*3/uL Normal 1.0-4.8 [facility] Comment on above: Performed By: #### C DP, TROPI #### [facility] [address] [place] [address] Digital Traffic Coordinator: Ronaldo Reed MD Lymphocytes/100 WBC (Bld) 23 % Normal 15-40 [facility] Comment on above: Performed By: #### C DP, TROPI #### [facility] [address] [place] [address] Digital Traffic Coordinator: Ronaldo Reed MD MCH (RBC) [Entitic mass] 31.5 pg Normal 26-34 [facility] Comment on above: Performed By: #### C DP, TROPI #### [facility] [address] [place] [address] Digital Traffic Coordinator: Ronaldo Reed MD MCHC (RBC) [Mass/Vol] 33.0 g/dL Normal 31-37 [facility] Comment on above: Performed By: #### C DP, TROPI #### [facility] [address] [place] [address] Digital Traffic Coordinator: Ronaldo Reed MD MCV (RBC) [Entitic vol] 95.2 fL Normal 80-100 [facility] Comment on above: Performed By: #### C DP, TROPI #### [facility] [address] [place] [address] Digital Traffic Coordinator: Ronaldo Reed MD Monocytes (Bld) [#/Vol] 0.60 10*3/uL Normal 0.0-1.0 [facility] Comment on above: Performed By: #### C DP, TROPI #### [facility] [address] [place] [address] Digital Traffic Coordinator: Ronaldo Reed MD Monocytes/100 WBC (Bld) 5 % Normal 4-8 [facility] Comment on above: Performed By: #### C DP, TROPI #### [facility] [address] [place] [address] Digital Traffic Coordinator: Ronaldo Reed MD Neutrophil (Seg) 70 % Normal 47-75 [facility] Comment on above: Performed By: #### C DP, TROPI #### [facility] [address] [place] [address] Digital Traffic Coordinator: Ronaldo Reed MD Platelets (Bld) [#/Vol] 428 10*3/uL Normal 140-450 [facility] Comment on above: Performed By: #### C DP, TROPI #### [facility] [address] [place], [place] [id number] Digital Traffic Coordinator: Ronaldo Reed MD RBC (Bld) [#/Vol] 3.63 10*6/uL Low 4.0-5.2 [facility] Comment on above: Performed By: #### C DP, TROPI #### [facility] [address] [place] [address] Digital Traffic Coordinator: Ronaldo Reed MD WBC (Bld) [#/Vol] 10.9 10*3/uL Normal 3.5-11.0 [facility] Comment on above: Performed By: #### C DP, TROPI #### [facility] [address] [place] [address] Digital Traffic Coordinator: Ronaldo Reed MD EKG Rhythm Stripon [facility] AM [facility] Troponinon 12-21-2022 Interpretation and review of laboratory results Abnormal [facility] Troponin, High Sensitivity 33 ng/L High 0 - 14 ng/L [facility] Comment on above: High Sensitivity Tro ponin values cannot be compared with other Troponin methodologies. [facility] Troponin, High Sens 34 ng/L High 0-14 [facility] Comment on above: Result Comment: High Sensitivity Troponin values cannot be compared with other Troponin methodologies. Performed By: #### C DP, TROPI #### [facility] [address] [place] [address] Digital Traffic Coordinator: Ronaldo Reed MD Interpretation and review of laboratory results Abnormal [facility] Troponin, High Sensitivity 34 ng/L High 0 - 14 ng/L [facility] Comment on above: High Sensitivity Tro ponin values cannot be compared with other Troponin methodologies. [facility] Troponin, High Sens 48 ng/L High 0-14 [facility] Comment on above: Result Comment: High Sensitivity Troponin values cannot be compared with other Troponin methodologies. Performed By: #### U AX #### [facility] [address] [place], [place] [id number] Digital Traffic Coordinator: Ronaldo Reed MD Interpretation and review of laboratory results Abnormal [facility] Troponin, High Sensitivity 48 ng/L High 0 - 14 ng/L [facility] Comment on above: High Sensitivity Tro ponin values cannot be compared with other Troponin methodologies. [facility] UA w/Reflex Cultureon 2022 Bilirubin, SemiQt,Ur Negative Normal NEG [facility] Comment on above: Performed By: #### U AX #### [facility] [address] [place] [address] Digital Traffic Coordinator: Ronaldo Reed MD Blood, Urine Negative Normal NEG [facility] Comment on above: Performed By: #### U AX #### [facility] [address] [place], [place] [id number] Digital Traffic Coordinator: Ronaldo Reed MD Clarity (U) Clear Normal CLEAR [facility] Comment on above: Performed By: #### U AX #### [facility] [address] [place], [place] [id number] Digital Traffic Coordinator: Ronaldo Reed MD Color (U) Yellow Normal YEL [facility] Comment on above: Performed By: #### U AX #### [facility] [address], [place] [id number] Digital Traffic Coordinator: Ronaldo Reed MD Comment Normal [facility] Comment on above: Performed By: #### U AX #### [facility] [address] [place], [place] [id number] Digital Traffic Coordinator: Ronaldo Reed MD Glucose Ql (U) Negative Normal NEG [facility] Comment on above: Performed By: #### U AX #### [facility] [address] [place], [place] [id number] Digital Traffic Coordinator: Ronaldo Reed MD Ketones Ql (U) Negative Normal NEG [facility] Comment on above: Performed By: #### U AX #### [facility] [address] [place], [place] [id number] Digital Traffic Coordinator: Ronaldo Reed MD Leukocyte esterase Test strip Ql (U) Negative Normal NEG [facility] Comment on above: Performed By: #### U AX #### [facility] [address] [place], [place] [id number] Digital Traffic Coordinator: Ronaldo Reed MD Nitrite,Ur Negative Normal NEG [facility] Comment on above: Performed By: #### U AX #### [facility] [address] [place] [address] Digital Traffic Coordinator: Ronaldo Reed MD PH,Ur 5.0 Normal 5.0-8.0 [facility] Comment on above: Performed By: #### U AX #### [facility] [address] [place], [place] [id number] Digital Traffic Coordinator: Ronaldo Reed MD Protein Ql (U) TRACE Abnormal NEG [facility] Comment on above: Performed By: #### U AX #### [facility] [address] [place], [place] [id number] Digital Traffic Coordinator: Ronaldo Reed MD Spec. [place] Ari,Ur 1.020 Normal 1.005-1.030 [facility] Comment on above: Performed By: #### U AX #### [facility] [address] [place], [place] [id number] Digital Traffic Coordinator: Ronaldo Reed MD Urobilinogen,Ur Normal Normal NORM [facility] Comment on above: Performed By: #### U AX #### [facility] [address] [place], [place] [id number] Digital Traffic Coordinator: Ronaldo Reed MD Urinalysis with Reflex to Cu ltureon 12-21-2022 Bilirubin Urine Negative NEGATIVE [facility] Color, UA Yellow Yellow [facility] Glucose, Ur Negative NEGATIVE [facility] Interpretation and review of laboratory results Abnormal [facility] Ketones Ql (U) Negative NEGATIVE [facility] Leukocyte esterase Test strip Ql (U) Negative NEGATIVE [facility] Nitrite, Urine Negative NEGATIVE [facility] pH, UA 5.0 5.0 - 8.0 [facility] Protein, UA TRACE Abnormal NEGATIVE [facility] Specific [place] Ari, UA 1.020 1.005 - 1.030 [facility] Turbidity UA Clear Clear [facility] Urinalysis Comments [facility] Urine Hgb Negative NEGATIVE [facility] Urobilinogen, Urine Normal Normal [facility] Basic Metabolic Panelon 11-27 Anion gap [Moles/Vol] 10 mmol/L 9 - 17 mmol/L [facility] Calcium [Mass/Vol] 9.6 mg/dL 8.6 - 10. 4 mg/dL [facility] Chloride [Moles/Vol] 101 mmol/L 98 - 10 7 mmol/L [facility] CO2 [Moles/Vol] 29 mmol/L 20 - 31 mmol/L [facility] Creatinine [Mass/Vol] 0.89 mg/dL 0.50 - 0.90 mg/dL [facility] GFR/1.73 sq M.predicted MDRD (S/P/Bld) [Vol rate/Area] - PINF [facility] Comment on above: Effective Aug 28, [...] 116 mg/dL High 70 - 99 mg/dL [facility] Interpretation and review of laboratory results Abnormal [facility] Potassium [Moles/Vol] 4.2 mmol/L 3.7 - 5.3 mmol/L [facility] Sodium [Moles/Vol] 140 mmol/L 135 - 144 mmol/L [facility] Urea nitrogen (BldV) [Mass/Vol] 34 mg/dL High 8 - 23 mg/dL [facility] Urea nitrogen/Creatinine (Bld) [Mass ratio] 38 High 9 - 20 [facility] Basic Metabolic Profon 12-17 Anion gap [Moles/Vol] 10 mmol/L Normal 9-17 [facility] Comment on above: Performed By: #### U AX #### [facility] [address] [place] [address] Digital Traffic Coordinator: Ronaldo Reed MD BUN/CRE Ratio 38 High 9-20 [facility] Comment on above: Performed By: #### U AX #### [facility] [address] [place], [place] [id number] Digital Traffic Coordinator: Ronaldo Reed MD Calcium [Mass/Vol] 9.6 mg/dL Normal 8.6-10.4 [facility] Comment on above: Performed By: #### U AX #### [facility] [address] [place], [place] [id number] Digital Traffic Coordinator: Ronaldo Reed MD Chloride [Moles/Vol] 101 mmol/L Normal 98-107 [facility] Comment on above: Performed By: #### U AX #### [facility] [address] [place] [address] Digital Traffic Coordinator: Ronaldo Reed MD CO2 [Moles/Vol] 29 mmol/L Normal 20-31 [facility] Comment on above: Performed By: #### U AX #### [facility] [address] [place] [address] Digital Traffic Coordinator: Ronaldo Reed MD Creatinine [Mass/Vol] 0.89 mg/dL Normal 0.50-0.90 [facility] Comment on above: Performed By: #### U AX #### [facility] [address] [place] [id number] Digital Traffic Coordinator: Ronaldo Reed MD GFR/1.73 sq M.predicted among non-blacks MDRD (S/P/Bld) [Vol rate/Area] mL/min/{1.73_m2} Normal >60 [facility] Comment on above: Result Comment: Effective [...] secretion. Performed By: #### U AX #### [facility] [address] [place] [id number] Digital Traffic Coordinator: Ronaldo Reed MD Glucose [Mass/Vol] 116 mg/dL High 70-99 [facility] Comment on above: Performed By: #### U AX #### [facility] [address] [place] [address] Digital Traffic Coordinator: Ronaldo Reed MD Potassium [Moles/Vol] 4.2 mmol/L Normal 3.7-5.3 [facility] Comment on above: Performed By: #### U AX #### [facility] [address] [place] [id number] Digital Traffic Coordinator: Ronaldo Reed MD Sodium [Moles/Vol] 140 mmol/L Normal 135-144 [facility] Comment on above: Performed By: #### U AX #### [facility] [address] [place] [address] Digital Traffic Coordinator: Ronaldo Reed MD Urea nitrogen [Mass/Vol] 34 mg/dL High 8-23 [facility] Comment on above: Performed By: #### U AX #### [facility] [address] [place] [address] Digital Traffic Coordinator: Ronaldo Reed MD CBC with Auto Differentialon 12-17-2022 Absolute Eos # 0.60 High [facility] Absolute Lymph # 3.20 [facility] Absolute Owen # 0.80 [facility] Basophils (Bld) [#/Vol] 0.00 10*3/uL [facility] Basophils/100 WBC (Bld) 0 % 0 - 2 % [facility] Differential Type YES [facility] Eosinophils/100 WBC (Bld) 6 % High 0 - 5 % [facility] Hematocrit (Bld) [Volume fraction] 36.6 % 36 - 46 % [facility] Hemoglobin (Bld) [Mass/Vol] 12.1 g/dL 12.0 - 16.0 g/dL [facility] Interpretation and review of laboratory results Abnormal [facility] Lymphocytes/100 WBC (Bld) 30 % 15 - 40 % [facility] MCH (RBC) [Entitic mass] 31.4 pg 26 - 34 pg [facility] MCHC (RBC) [Mass/Vol] 33.0 g/dL 31 - 37 g/dL [facility] MCV (RBC) [Entitic vol] 95.1 fL 80 - 100 fL [facility] Monocytes/100 WBC (Bld) 8 % 4 - 8 % [facility] Platelet distribution width (Bld) [Ratio] 13.9 % 12.1 - 15.2 % [facility] Platelets (Bld) [#/Vol] 390 10*3/uL [facility] RBC (Bld) [#/Vol] 3.85 10*6/uL Low 4.0 - 5.2 m/uL [facility] Segmented neutrophils/100 WBC (Bld) 56 % 47 - 75 % [facility] Segs Absolute 6.00 [facility] WBC (Bld) [#/Vol] 10.6 10*3/uL [facility] CBC with Diffon 12-17-2022 Abs. Basophil 0.00 k/uL Normal 0.0-0.2 [facility] Comment on above: Performed By: #### U AX #### [facility] [address] [place] [address] Digital Traffic Coordinator: Ronaldo Reed MD Abs.Neutrophil (Seg) 6.00 k/uL Normal 2.5-7.0 [facility] Comment on above: Performed By: #### U AX #### [facility] [address] [place] [address] Digital Traffic Coordinator: Ronaldo Reed MD Auto Diff Performed YES Normal [facility] Comment on above: Performed By: #### U AX #### [facility] [address] [place] [address] Digital Traffic Coordinator: Ronaldo Reed MD Basophils/100 WBC (Bld) 0 % Normal 0-2 [facility] Comment on above: Performed By: #### U AX #### [facility] [address] [place] [address] Digital Traffic Coordinator: Ronaldo Reed MD Eosinophils (Bld) [#/Vol] 0.60 10*3/uL High 0.0-0.4 [facility] Comment on above: Performed By: #### U AX #### [facility] [address] [place] [address] Digital Traffic Coordinator: Ronaldo Reed MD Eosinophils/100 WBC (Bld) 6 % High 0-5 [facility] Comment on above: Performed By: #### U AX #### [facility] [address] [place] [address] Digital Traffic Coordinator: Ronaldo Reed MD Erythrocyte distribution width (RBC) [Ratio] 13.9 % Normal 12.1-15.2 [facility] Comment on above: Performed By: #### U AX #### [facility] [address] [place] [address] Digital Traffic Coordinator: Ronaldo Reed MD Hematocrit (Bld) [Volume fraction] 36.6 % Normal 36-46 [facility] Comment on above: Performed By: #### U AX #### [facility] [address] [facility] [place] [address] Digital Traffic Coordinator: Ronaldo Reed MD Hemoglobin (Bld) [Mass/Vol] 12.1 g/dL Normal 12.0-16.0 [facility] Comment on above: Performed By: #### U AX #### [facility] [address] [place] [address] Digital Traffic Coordinator: Ronaldo Reed MD Lymphocytes (Bld) [#/Vol] 3.20 10*3/uL Normal 1.0-4.8 [facility] Comment on above: Performed By: #### U AX #### [facility] [address] [place] [address] Digital Traffic Coordinator: Ronaldo Reed MD Lymphocytes/100 WBC (Bld) 30 % Normal 15-40 [facility] Comment on above: Performed By: #### U AX #### [facility] [address] [place] [address] Digital Traffic Coordinator: Ronaldo Reed MD MCH (RBC) [Entitic mass] 31.4 pg Normal 26-34 [facility] Comment on above: Performed By: #### U AX #### [facility] [address] [place] [address] Digital Traffic Coordinator: Ronaldo Reed MD MCHC (RBC) [Mass/Vol] 33.0 g/dL Normal 31-37 [facility] Comment on above: Performed By: #### U AX #### [facility] [address] [place] [address] Digital Traffic Coordinator: Ronaldo Reed MD MCV (RBC) [Entitic vol] 95.1 fL Normal 80-100 [facility] Comment on above: Performed By: #### U AX #### [facility] [address] [place], [place] [phone] Digital Traffic Coordinator: Ronaldo Reed MD Monocytes (Bld) [#/Vol] 0.80 10*3/uL Normal 0.0-1.0 [facility] Comment on above: Performed By: #### U AX #### [facility] [address] [place], [place] [phone] Digital Traffic Coordinator: Ronaldo Reed MD Monocytes/100 WBC (Bld) 8 % Normal 4-8 [facility] Comment on above: Performed By: #### U AX #### [facility] [address] [place] [address] Digital Traffic Coordinator: Ronaldo Reed MD Neutrophil (Seg) 56 % Normal 47-75 [facility] Comment on above: Performed By: #### U AX #### [facility] [address] [place] [address] Digital Traffic Coordinator: Ronaldo Reed MD Platelets (Bld) [#/Vol] 390 10*3/uL Normal 140-450 [facility] Comment on above: Performed By: #### U AX #### [facility] [address] [place] [address] Digital Traffic Coordinator: Ronaldo Reed MD RBC (Bld) [#/Vol] 3.85 10*6/uL Low 4.0-5.2 [facility] Comment on above: Performed By: #### U AX #### [facility] [address] [place] [address] [phone] Digital Traffic Coordinator: Ronaldo Reed MD WBC (Bld) [#/Vol] 10.6 10*3/uL Normal 3.5-11.0 [facility] Comment on above: Performed By: #### U AX #### [facility] [address] [place] [address] Digital Traffic Coordinator: Ronaldo Reed MD CHEMISTRYOrdered By: Lab ROP User on 12-15-2022 Glucose [Mass/Vol] 130 mg/dL High 55 - 99 mg/dL FT POC Subsection Comment on above: Result Comment: Blanca allen RN/ POC Device SN [id number] Invalid Interpretation Code [facility] POC Subsection POC User ID [id number] Invalid Interpretation Code [facility] POC Subsection POC Username EDWAR SHUKLAY Invalid Interpretation Code [facility] POC Subsection Glucose [Mass/Vol] 132 mg/dL High 55 - 99 mg/dL [facility] POC Subsection Comment on above: Result Comment: Blanca allen RN/ POC Device SN [id number] Invalid Interpretation Code [facility] POC Subsection POC User ID [id number] Invalid Interpretation Code [facility] POC Subsection POC Username GAYLA CONSTANCE Invalid Interpretation Code [facility] POC Subsection Glucose [Mass/Vol] 122 mg/dL High 55 - 99 mg/dL [facility] POC Subsection Comment on above: Result Comment: Danitza lizzie Meter POC Device SN [id number] Invalid Interpretation Code [facility] POC Subsection POC User ID [id number] Invalid Interpretation Code [facility] POC Subsection POC [...] 10 - 20 [facility] Remisol HEMATOLOGYOrdered By: [employer] SYSTEM on 12-12-2022 Basophils/100 WBC (Bld) 0.4 [...] 36.8 % Normal 34.0 - 46.0 % [facility] HemeAutoSS Hemoglobin (Bld) [Mass/Vol] 12.4 g/dL Normal 12.0 - 16.0 gm/dL [facility] HemeAutoSS MCH (RBC) [Entitic mass] 31.8 pg [...] Ag Negative (12/12/22 7:39 PM) Normal Negative [facility] Man Sero Influenzae B Ag Negative (12/12/22 7:39 PM) Normal Negative [facility] Man Sero Rapid COV Int NEG Ctl Pass (12/12/22 7:39 PM) Normal [facility] Man Sero Rapid COV Int POS Ctl Pass (12/12/22 7:39 PM) Normal [facility] Man Sero SARS-CoV+SARS-CoV-2 (COVID-19) Ag IA.rapid Ql (Resp) Not Detected (12/12/22 7:39 PM) Normal Not Detected [facility]ero URINALYSISOrdered By: Lizzie Raymundo on [...] PM) Normal Negative [facility] UA Auto SS Kyle.plasma/Kyle .RBC (Bld) [Mass ratio] 0-3 /HPF Normal 0-3/HPF [facility] UA Auto SS Nitrite Ql (U) Negative (12/12/22 8:38 PM) Normal Negative [facility] UA Auto SS pH (U) 5.0 *NA* (12/12/22 8:38 PM) Invalid Interpretation Code 5.0 - 9.0 [facility] Auto SS Protein (U) [Mass/Vol] Negative (12/12/22 8:38 PM) Normal Negative [facility] UA Auto SS Specific gravity (U) [Rel density] 1.020 *NA* (12/12/22 8:38 PM) Invalid Interpretation Code 1.005 - 1.030 [facility]A Auto SS UA Spec Desc Clean Catch (12/12/22 8:38 PM) Normal [facility] UA Auto SS Urobilinogen Qn (U) [id number] {Pollo'U}/dL Normal 0.0 - 1.0 EU/dL [facility] UA Auto SS WBC Auto Ql (U) Negative (12/12/22 8:38 PM) Normal Negative [facility] UA Auto SS WBC LM.HPF (Urine sed) [#/Area] 0-5 /HPF Normal 0-5/HPF [facility] UA Auto SS XR ANKLE RIGHT (MIN [...] Karly Arzate MD 12/07/22 Final result Normal [facility] Acute distal fibular fracture. [facility] RIS CONSOLIDATED EXAM: XR ANKLE RIGHT (MIN 3 VIEWS) HISTORY: Reason for exam:->injury COMPARISON: None. TECHNIQUE: 3 views of the right ankle FINDINGS: Acute nondisplaced oblique fracture of the distal fibula is seen. Joint alignment is normal. Joint spaces are preserved. Soft tissue swelling seen about the lateral ankle. Plantar and posterior calcaneal spur is seen. [facility] Karly Ibanez MD - 12/07/2022 EXAM: XR ANKLE RIGHT (MIN 3 VIEWS) HISTORY: Reason for exam:->injury COMPARISON: None. TECHNIQUE: 3 views of the right ankle FINDINGS: Acute nondisplaced oblique fracture of the distal fibula is seen. Joint alignment is normal. Joint spaces are preserved. Soft tissue swelling seen about the lateral ankle. Plantar and posterior calcaneal spur is seen. IMPRESSION: Acute distal fibular fracture. [employer]ulate Phone: Radiology Study observation (narrative) [employer]ulate Phone: XR ANKLE RIGHT (MIN 3 VIEWS) Ordered By: Karly Arzate on 12-07-2022 tabulate Phone: CHEMISTRYOrdered By: SYSTEM SYSTEM on 09-28-2022 Albumin [Mass/Vol] 3.7 g/dL Normal 3.3 - 5.0 gm/dL [facility] Remisol Albumin/Globulin [Mass ratio] 1.1 {ratio} Normal 1.1 - 2.2 [facility] Remisol ALP [Catalytic activity/Vol] 79 [iU]/d Normal 21 - 98 Int._Unit/L [facility] [...] ratio] 19 mg/mg Normal 10 - 20 [facility] Remisol CHEMISTRYOrdered By: Josseline Stanley on 09-28-2022 HbA1c (Bld) [Mass fraction] 6.2 % High <=5.9% [facility] ChemAutoSS HEMATOLOGYOrdered By: SYSTEM SYSTEM on 09-28-2022 [...] 7.1 E9/L Normal 2.0 - 7.5 E9/L [facility] HemeAutoSS HEMATOLOGYOrdered By: Fran Mccray on 09-28-2022 Erythrocyte distribution width (RBC) [Ratio] 13.9 % Normal 10.9 - 14.2 % [facility] HemeAutoSS Hematocrit (Bld) [Volume fraction] 40.9 % Normal 34.0 - 46.0 % [facility] HemeAutoSS Hemoglobin (Bld) [Mass/Vol] 13.7 g/dL Normal [...] 11.5 E9/L High 4.0 - 11.0 E9/L [facility] HemeAutoSS CBC Auto Differentialon 07-27 Absolute Eos # 0.50 High [facility] Absolute Lymph # 2.40 [facility] Absolute Owen # 0.60 [facility] Basophils (Bld) [#/Vol] 0.00 10*3/uL [facility] Basophils/100 WBC (Bld) 0 % 0 - 2 % [facility] Differential Type YES [facility] Eosinophils/100 WBC (Bld) 5 % 0 - 5 % [facility] Hematocrit (Bld) [Volume fraction] 37.0 % 36 - 46 % [facility] Hemoglobin (Bld) [Mass/Vol] 12.5 g/dL 12 - 16 g/dL [facility] Interpretation and review of laboratory results Abnormal [facility] Lymphocytes/100 WBC (Bld) 25 % 15 - 40 % [facility] MCH (RBC) [Entitic mass] 31.6 pg 26 - 34 pg [facility] MCHC (RBC) [Mass/Vol] 33.8 g/dL 31 - 37 g/dL [facility] MCV (RBC) [Entitic vol] 93.5 fL 80 - 100 fL [facility] Monocytes/100 WBC (Bld) 6 % 4 - 8 % [facility] Platelet distribution width (Bld) [Ratio] 13.2 % 12.1 - 15.2 % [facility] Platelets (Bld) [#/Vol] 320 10*3/uL [facility] RBC (Bld) [#/Vol] 3.95 10*6/uL Low 4 - 5.2 m/uL [facility] Segmented neutrophils/100 WBC (Bld) 64 % 47 - 75 % [facility] Segs Absolute 5.90 [facility] WBC (Bld) [#/Vol] 9.3 10*3/uL [facility] Comprehensive Metabolic Pane salima 08-08-2022 Albumin [Mass/Vol] 3.6 g/dL 3.5 - 5.2 g/dL [facility] ALP (Bld) [Catalytic activity/Vol] 111 U/L High 35 - 104 U/L [facility] ALT [Catalytic activity/Vol] 20 U/L 5 - 33 U/L [facility] Anion gap [Moles/Vol] 10 mmol/L 9 - 17 mmol/L [facility] AST [Catalytic activity/Vol] 20 U/L NINF - 32 U/L [facility] Bilirubin [Mass/Vol] 0.5 mg/dL 0.3 - 1 .2 mg/dL [facility] Calcium [Mass/Vol] 9.7 mg/dL 8.6 - 10. 4 mg/dL [facility] Chloride [Moles/Vol] 102 mmol/L 98 - 10 7 mmol/L [facility] CO2 [Moles/Vol] 28 mmol/L 20 - 31 mmol/L [facility] Creatinine [Mass/Vol] 0.77 mg/dL 0.5 - 0.9 mg/dL [facility] Free PSA/Total PSA [Mass fraction] 6.7 g/dL 6.4 - 8.3 g/dL [facility] GFR >60 60 - PI NF mL/min [facility] GFR Non- >60 60 - PINF mL/min [facility] GFR/1.73 sq M.predicted MDRD (S/P/Bld) [Vol rate/Area] [facility] [employer] Comment on above: Average GFR for 70 o r more years old: 75 mL/min/1.73sq m Chronic Kidney Disease: <60 mL/min/1.73sq m Kidney failure: <15 mL/min/1.73sq m eGFR calculated using average adult body mass. Additional eGFR calculator available at: http://www.Jdguanjia/multiple_crcl_2012.htm Glucose [Mass/Vol] 126 mg/dL High 70 - 99 mg/dL [facility] Interpretation and review of laboratory results Abnormal [facility] Potassium [Moles/Vol] 4.8 mmol/L 3.7 - 5.3 mmol/L [facility] Sodium [Moles/Vol] 140 mmol/L 135 - 144 mmol/L [facility] Urea nitrogen (BldV) [Mass/Vol] 22 mg/dL 8 - 23 mg/dL [facility] Urea nitrogen/Creatinine (Bld) [Mass ratio] 29 High 9 - 20 [facility] [employer] Lipid Panelon 08-08-2022 Cholesterol [Mass/Vol] 138 mg/dL NINF - 200 mg/dL [facility] [employer] Comment on above: Cholesterol Guidelines: <200 Desirable 200-240 Borderline >240 Undesirable Cholesterol in HDL [Mass/Vol] 42 mg/dL 40 - PINF mg/dL [facility] [employer] Comment on above: HDL Guidelines: <40 Undesirable 40-59 Borderline >59 Desirable Cholesterol in LDL [Mass/Vol] 72 mg/dL 0 - 130 mg/dL [facility] [employer] Comment on above: LDL Guidelines: <100 Desirable 100-129 Near to/above Desirable 130-159 Borderline >159 Undesirable Direct (measured) LDL and calculated LDL are not interchangeable tests. Cholesterol.total/Chol esterol in HDL [Mass ratio] 3.3 {ratio} NINF - 5 [facility] [employer] Triglyceride [Mass/Vol] 122 mg/dL NINF - 150 mg/dL [facility] [employer] Comment on above: Triglyceride Guidelines: <150 Desirable 150-199 Borderline 200-499 High >499 Very high Based on AHA Guidelines for fasting triglyceride, August 2012. [facility] Magnesiumon 08-08-2022 Magnesium [Mass/Vol] 1.7 mg/dL 1.6 - 2 .6 mg/dL [facility] No Panel Informationon 08-08 [facility] Patient Fasting?on 2 Patient Fasting? yes BLAKE PERAZA [facility] TSH with Reflexon 08-08-2022 TSH Qn 2.08 m[IU]/L [facility] Vitamin D 25 Hydroxyon 08-08 Vit D, 25-Hydroxy 40.6 ng/mL 29.9 - PIN F ng/mL [facility] Comment on above: Reference Range: Vitamin D status Range Deficiency <20 ng/mL Mild Deficiency 20-30 ng/mL Sufficiency 30-100 ng/mL Toxicity >100 ng/mL [facility] XR CHEST (2 VW)on 08-08-2022 Chronic changes and emphysema, similar. [facility] RIS CONSOLIDATED EXAM: XR CHEST (2 VW) HISTORY: Reason for exam:->a fib, 86-year-old female COMPARISON: Chest 09/12/2021 TECHNIQUE: 2 views chest FINDINGS: Chronic interstitial stranding at the lung bases, stable. Prior sternotomy. Heart size upper normal. Degenerative changes spine. Likely emphysematous overinflation. PN RIS CONSOLIDATED Bang Godoy Jr., MD - 08/08/2022 EXAM: XR CHEST (2 VW) HISTORY: Reason for exam:->a fib, 86-year-old female COMPARISON: Chest 09/12/2021 TECHNIQUE: 2 views chest FINDINGS: Chronic interstitial stranding at the lung bases, stable. Prior sternotomy. Heart size upper normal. Degenerative changes spine. Likely emphysematous overinflation. IMPRESSION: Chronic changes and emphysema, similar. [facility] [employer] Work Phone: Radiology Study observation (narrative) [facility] [employer] Work Phone: XR CHEST (2 VW)Ordered By: Lyudmila Godoy on 08-08-2022 [facility] [employer] Work Phone: URINALYSISOrdered By: Pola Castaneda on [...] Interpretation Code Negative [facility] UA Auto SS Kyle.plasma/Kyle .RBC (Bld) [Mass ratio] 0-3 /HPF Normal [...] [facility] UA Auto SS Urobilinogen Qn (U) [id number] {Pollo'U}/dL Normal 0.0 - 1.0 EU/dL [facility] [...] m2 [facility] Chem S Globulin (S) [Mass/Vol] 3.3 g/dL Normal 1.4 - 4.0 gm/dL [facility] Remisol Glucose [Mass/Vol] 133 mg/dL Normal 55 - 199 mg/dL [facility] Potassium [Moles/Vol] 4.4 mmol/L Normal 3.5 - 5.3 mmol/L [facility]isol Protein [Mass/Vol] 7.2 g/dL Normal 6.0 - 7.8 gm/dL [facility] Sodium [Moles/Vol] 134 mmol/L Low 135 - 145 mmol/L [facility] Triglyceride [Mass/Vol] 105 mg/dL Normal <=149mg/dL [facility] Urea nitrogen [Mass/Vol] 27 mg/dL High 5 - 21 mg/dL [facility] Urea nitrogen/Creatinine [Mass ratio] 34 mg/mg High 10 - 20 [facility] Remisol CHEMISTRYOrdered By: Josseline Stanley on 06-19-2022 HbA1c (Bld) [Mass fraction] 6.4 % High <=5.9% [facility] ChemAutoSS HEMATOLOGYOrdered By: SYSTEM SYSTEM on 06-19-2022 [...] rate/Area] mL/min/1.73 m2 Normal >=59mL/min/1 .73 m2 [facility] Chem S GFR/1.73 sq M.predicted among non-blacks MDRD (S/P/Bld) [Vol rate/Area] mL/min/1.73 m2 Normal >=59mL/min/1 .73 m2 [facility] Chem S Globulin (S) [Mass/Vol] 3.6 g/dL Normal 1.4 - 4.0 gm/dL [facility] Remisol Glucose [Mass/Vol] 135 mg/dL Normal 55 - 199 mg/dL FT [...] 13.7 % Normal 10.9 - 14.2 % [facility] HemeAutoSS Hematocrit (Bld) [Volume fraction] 37.1 % [...] 5.9 E12/L [facility] HemeAutoSS Sed Rate Automated 18 mm/h Normal 0 - 34 mm/hr [facility] HemeAutoSS WBC corrected for nucl RBC Auto (Bld) [#/Vol] 9.6 E9/L Normal 4.0 - 11.0 E9/L [facility] HemeAutoSS No Panel Informationon 05-03 Chondrocalcinosis and degenerative changes. [facility] EXAM: XR WRIST RIGHT (MIN 3 [...] Mild radiocarpal joint space narrowing. No fracture. [facility] Bang Godoy Jr., MD - 05/03/2022 [...] No fracture. IMPRESSION: Chondrocalcinosis and degenerative changes. [employer] Work Phone: No Panel InformationOrdered By: Bang Godoy on 05-03-2022 tabulate Phone: XR WRIST LEFT (MIN 3 VIEWS)o n 05-03-2022 Radiology Study observation (narrative) [employer]ulate Phone: XR WRIST RIGHT (MIN 3 VIEWS) on 05-03-2022 Radiology Study observation (narrative) [employer]ulate Phone: CHEMISTRYOrdered By: SYSTEM SYSTEM on 02-14-2022 [...] m2 [facility] Chem S Globulin (S) [Mass/Vol] 3.1 g/dL Normal 1.4 - 4.0 gm/dL [facility] Remisol Glucose [Mass/Vol] 126 mg/dL Normal 55 - 199 mg/dL [facility]isol Potassium [Moles/Vol] 4.7 mmol/L Normal 3.5 - 5.3 mmol/L [facility] Protein [Mass/Vol] 6.8 g/dL Normal 6.0 - 7.8 gm/dL [facility] Sodium [Moles/Vol] 137 mmol/L Normal 135 - 145 mmol/L [facility] Urea nitrogen [Mass/Vol] 20 mg/dL Normal 5 - 21 mg/dL [facility] Urea nitrogen/Creatinine [Mass ratio] 25 mg/mg High 10 - 20 [facility] Remisol HEMATOLOGYOrdered By: SYSTEM SYSTEM on 02-14-2022 [...] 4.1 E12/L Low 4.3 - 5.9 E12/L [facility] HemeAutoSS Sed Rate Automated 14 mm/h Normal [...] 6 - 16 mEq/L [facility] Remisol AST [Catalytic activity/Vol] 17 [iU]/d Normal 5 - 43 Int._Unit/L [facility] Remisol Bilirubin [Mass/Vol] 0.8 mg/dL Normal 0.0 - 1 .1 mg/dL [facility] Calcium [Mass/Vol] 9.4 mg/dL Normal 8.9 - 11. 1 mg/dL [facility] Chloride [Moles/Vol] 103 mmol/L Normal 101 - 1 11 mmol/L [facility] CO2 [Moles/Vol] 26 mmol/L Normal 21 - 31 mmol/L [facility] Creatinine [Mass/Vol] 0.9 mg/dL Normal 0.5 - 1.3 mg/dL [facility] Remisol GFR/1.73 sq M.predicted among blacks MDRD (S/P/Bld) [Vol rate/Area] mL/min/1.73 m2 Normal >=59mL/min/1 .73 m2 [facility] Chem S GFR/1.73 sq M.predicted among non-blacks MDRD (S/P/Bld) [Vol rate/Area] 60 mL/min/1.73 m2 Normal >=59mL/min/1 .73 m2 [facility] Chem S Globulin (S) [Mass/Vol] 3.2 g/dL Normal 1.4 - 4.0 gm/dL [facility] Remisol Glucose [Mass/Vol] 125 mg/dL Normal 55 - 199 mg/dL [facility]isol Potassium [Moles/Vol] 4.2 mmol/L Normal 3.5 - 5.3 mmol/L [facility]isol Protein [Mass/Vol] 6.8 g/dL Normal 6.0 - 7.8 gm/dL [facility]isol Sodium [Moles/Vol] 139 mmol/L Normal 135 - 145 mmol/L [facility] Urea nitrogen [Mass/Vol] 23 mg/dL High 5 - 21 mg/dL [facility] Urea nitrogen/Creatinine [Mass ratio] 26 mg/mg High 10 - 20 [facility] Remisol HEMATOLOGYOrdered By: SYSTEM SYSTEM on 12-14-2021 Basophils/100 WBC (Bld) 0.5 % Normal 0.0 - 2.0 % FT [...] 10.8 fL [facility] HemeAutoSS Platelets (Bld) [#/Vol] 295.0 E9/L Normal 150.0 - 500.0 E9/L [facility]eAutoSS RBC (Bld) [#/Vol] 4.2 E12/L Low 4.3 - 5.9 E12/L [facility] HemeAutoSS WBC corrected for nucl RBC Auto (Bld) [#/Vol] 7.5 E9/L Normal 4.0 - 11.0 E9/L [facility] HemeAutoSS HEMATOLOGYOrdered By: Daisy Diego on 12-14-2021 Sed Rate Automated 13 mm/h Normal 0 - 34 mm/hr [facility] HemeAutoSS XR LUMBAR SPINE (MIN 4 VIEWS )on 10-02-2021 No acute lumbar spine findings. Chronic changes are described above. If the patient has focal tenderness, further evaluation with MRI is recommended. [facility] EXAM: XR LUMBAR SPINE (MIN 4 [...] There are dense aortic calcifications without aneurysm. [facility] Armand Chen MD - 10/02/2021 EXAM: [...] tenderness, further evaluation with MRI is recommended. [employer] Phone: [employer] Phone: Radiology Study observation (narrative) [employer] Phone: XR THORACIC SPINE (3 VIEWS)o n [...] is seen in the lower cervical spine. [facility] Armand Escalona MD - 10/02/2021 EXAM: XR THORACIC SPINE [...] CT scan or MRI could be considered. [employer] Phone: Radiology Study observation (narrative) [employer] Phone: XR THORACIC SPINE (3 VIEWS)O rdered By: Armand Chen on 10-02-2021 [employer] Phone: CBC Auto DifferentialOrdered By: Emiliano Deng on 09-12-2021 Absolute Eos # 0.20 [facility] Work Phone: Absolute Immature Granulocyte NOT REPORTED [employer] Phone: Absolute Lymph # 1.70 [facility] Work Phone: Absolute Owen # 0.40 [facility] [facility] Work Phone: Basophils (Bld) [#/Vol] 0.00 10*3/uL [employer] Work Phone: Basophils/100 WBC (Bld) 0 % 0 - 2 % [employer] Phone: Differential Type YES [employer] Work Phone: Eosinophils/100 WBC (Bld) 3 % 0 - 5 % [facility] Phone: Hematocrit (Bld) [Volume fraction] 37.3 % 36 - 46 % [facility] Phone: Hemoglobin.gastrointes tinal spec 1 Ql (Stl) 12.5 g/dL 12.0 - 16.0 g/dL [facility] Phone: Immature Granulocytes NOT REPORTED 0 % [employer] Work Phone: Interpretation and review of laboratory results Abnormal [facility] Phone: Lymphocytes/100 WBC (Bld) 27 % 15 - 40 % [facility] Phone: MCH (RBC) [Entitic mass] 31.7 pg 26 - 34 pg [facility] Phone: MCHC (RBC) [Mass/Vol] 33.4 g/dL 31 - 37 g/dL [employer] Work Phone: MCV (RBC) [Entitic vol] 94.9 fL 80 - 100 fL [facility] Phone: Monocytes/100 WBC (Bld) 6 % 4 - 8 % [facility] Phone: NRBC Automated NOT REPORTED per 100 WBC [employer] Work Phone: Platelet distribution width (Bld) [Ratio] 14.1 % 12.1 - 15.2 % [facility] Phone: Platelet Estimate NOT REPORTED [facility] Phone: Platelet mean volume (Bld) [Entitic vol] NOT REPORTED 6.0 - 12.0 fL [facility] Phone: Platelets (Bld) [#/Vol] 311 10*3/uL [facility] Phone: RBC (Bld) [#/Vol] 3.93 10*6/uL Low 4.0 - 5.2 m/uL [employer] Work Phone: RBC (Bld) [#/Vol] NOT REPORTED [facility] Phone: Segmented neutrophils/100 WBC (Bld) 64 % 47 - 75 % [employer] Work Phone: Segs Absolute 4.20 [employer] Work Phone: WBC (Bld) [#/Vol] 6.6 10*3/uL [employer] Work Phone: WBC (Bld) [#/Vol] NOT REPORTED [facility] Phone: [employer] Phone: Comprehensive Metabolic Pane lOrdered By: Emiliano Deng on 09-12-2021 Albumin [Mass/Vol] 3.7 g/dL 3.5 - 5.2 g/dL [facility] Phone: Albumin/Globulin Ratio NOT REPORTED [facility] Phone: ALP (Bld) [Catalytic activity/Vol] 95 U/L 35 - 104 U/L [facility] Phone: ALT [Catalytic activity/Vol] 17 U/L 5 - 33 U/L [facility] Phone: Anion gap [Moles/Vol] 9 mmol/L 9 - 17 mmol/L [facility] Phone: AST [Catalytic activity/Vol] 16 U/L <32 [facility] Phone: Bilirubin [Mass/Vol] 0.48 mg/dL 0.30 - 1.20 mg/dL [facility] Phone: Calcium [Mass/Vol] 9.1 mg/dL 8.6 - 10. 4 mg/dL [facility] Phone: Chloride [Moles/Vol] 105 mmol/L 98 - 10 7 mmol/L [facility] Phone: CO2 [Moles/Vol] 26 mmol/L 20 - 31 mmol/L [facility] Phone: Creatinine [Mass/Vol] 0.64 mg/dL 0.50 - 0.90 mg/dL [facility] Phone: Free PSA/Total PSA [Mass fraction] 6.7 g/dL 6.4 - 8.3 g/dL [facility] Phone: GFR >60 >60 mL/min [employer] Phone: GFR Non- >60 >60 mL/min [facility] Phone: GFR/1.73 sq M.predicted MDRD (S/P/Bld) [Vol rate/Area] [facility] Phone: Comment on above: Average GFR for 70 o r more years old: 75 mL/min/1.73sq m Chronic Kidney Disease: <60 mL/min/1.73sq m Kidney failure: <15 mL/min/1.73sq m eGFR calculated using average adult body mass. Additional eGFR calculator available at: http://www.ONTRAPORT.com/multiple_crcl_2012.htm GFR/1.73 sq M.predicted MDRD (S/P/Bld) [Vol rate/Area] NOT REPORTED [facility] Phone: Glucose [Mass/Vol] 128 mg/dL High 70 - 99 mg/dL [facility] Phone: Interpretation and review of laboratory results Abnormal [facility] Phone: Potassium [Moles/Vol] 3.6 mmol/L Low 3.7 - 5.3 mmol/L [facility] Phone: Sodium [Moles/Vol] 140 mmol/L 135 - 144 mmol/L [facility] Phone: Urea nitrogen (BldV) [Mass/Vol] 14 mg/dL 8 - 23 mg/dL [facility] Phone: Urea nitrogen/Creatinine (Bld) [Mass ratio] 22 High [facility] Phone: Lipid PanelOrdered By: Emiliano Deng on 09-12-2021 Cholesterol [Mass/Vol] 138 mg/dL <200 [employer] Phone: Comment on above: Cholesterol Guidelines: <200 Desirable 200-240 Borderline >240 Undesirable Cholesterol in HDL [Mass/Vol] 55 mg/dL >40 [facility] Phone: Comment on above: HDL Guidelines: <40 Undesirable 40-59 Borderline >59 Desirable Cholesterol in LDL [Mass/Vol] 63 mg/dL 0 - 130 mg/dL [facility] Phone: Comment on above: LDL Guidelines: <100 Desirable 100-129 Near to/above Desirable 130-159 Borderline >159 Undesirable Direct (measured) LDL and calculated LDL are not interchangeable tests. Cholesterol in VLDL [Mass/Vol] NOT REPORTED 1 - 30 mg/dL [facility] Phone: Cholesterol.total/Chol esterol in HDL [Mass ratio] 2.5 {ratio} <5 [facility] Phone: Triglyceride [Mass/Vol] 101 mg/dL <150 [facility] Phone: Comment on above: Triglyceride Guidelines: <150 Desirable 150-199 Borderline 200-499 High >499 Very high Based on AHA Guidelines for fasting triglyceride, August 2012. [employer] Phone: MagnesiumOrdered By: Emiliano nam on 09-12-2021 Magnesium [Mass/Vol] 1.7 mg/dL 1.6 - 2 .6 mg/dL [facility] Phone: No Panel InformationOrdered By: Emiliano Deng on 09-12-2021 [facility] Phone: Patient Fasting?Ordered By: Emiliano Deng on 09-12-2021 Patient Fasting? yes [employer] Work Phone: [facility] Phone: TSH with ReflexOrdered By: Lloyd Deng on 09-12-2021 TSH Qn 1.77 m[IU]/L [facility] Phone: Vitamin D 25 HydroxyOrdered By: Emiliano Deng on 09-12-2021 Vit D, 25-Hydroxy 35.6 ng/mL 30.0 - 100 .0 ng/mL [facility] Phone: Comment on above: Reference Range: Vitamin D status Range Deficiency <20 ng/mL Mild Deficiency 20-30 ng/mL Sufficiency 30-100 ng/mL Toxicity >100 ng/mL [facility] Phone: XR CHEST (2 VW)Ordered By: Lloyd Deng on 09-12-2021 COPD with mild nonspecific reticular opacities at the lung bases favoring atelectasis and/or fibrotic scarring. The lungs appear otherwise clear. [facility] Phone: EXAM: XR CHEST (2 VW) HISTORY: [...] hardware near the cervicothoracic junction appears unchanged. [facility] Phone: Anupam, Mhpn Incoming Radiant Results From [email or web address] - 09/12/2021 12:29 PM EDT EXAM: XR [...] fibrotic scarring. The lungs appear otherwise clear. 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 + +-- --------+ ----+ + [facility] Phone: [facility] Phone: XR HIP 2-3 VW W PELVIS LEFTO rdered By: Xena Andrews on 06-11-2021 1. Mild to moderate degenerative changes are noted in both hips. 2. No fracture or dislocation is identified. 3. Atherosclerosis. [facility] Phone: PELVIS AND LEFT HIP RADIOGRAPH 06/11/2021 [...] lumbar spine. Extensive atherosclerotic changes are noted. [facility] Phone: Anupam, pn Incoming Radiant Results From [employer] - 06/11/2021 9:34 AM EDT PELVIS AND [...] fracture or dislocation is identified. 3. Atherosclerosis. [facility]: [facility]: XR CERVICAL SPINE (4-5 VIEWS )Ordered By: Merissa Donald on 06-09-2021 Degenerative changes with intact fusion lower cervical spine. [employer]: EXAM: XR CERVICAL SPINE (4-5 VIEWS) [...] for age. Lung apices clear. Odontoid normal. [facility]: Anupam, [facility] Incoming Radiant Results From [employer] - 06/09/2021 11:40 AM EDT EXAM: XR [...] changes with intact fusion lower cervical spine. [facility]: [facility]: CT HEAD WO CONTRASTon 2020 Right supraorbital scalp hematoma. No skull fracture or intracranial hemorrhage. [facility] Phone: EXAMINATION: CT HEAD WO CONTRAST HISTORY: [...] show no fracture. Multiplanar reconstructions otherwise negative. [facility] Phone: Anupam, [facility] Incoming Radiant Results From [email or web address] - 03/08/2021 12:50 PM EDT EXAMINATION: CT [...] hematoma. No skull fracture or intracranial hemorrhage. [facility] Phone: MRI lumbar spine without con traston 02-03-2021 Significant severe spinal canal stenosis at L3-L4, L4-L5 and L5-S1 caused by discogenic disease and facet arthropathy as detailed above. [facility] Phone: LUMBAR MRI HISTORY: Low back pain [...] deformity at L1. Distal cord appears unremarkable. [facility] Phone: Anupam, pn Incoming Radiant Results From [email or web address] - 02/03/2021 1:21 PM EST LUMBAR MRI [...] disease and facet arthropathy as detailed above. [facility] Work Phone: XR KNEE RIGHT (MIN 4 VIEWS)o n 10-06-2020 Severe osteoarthritic changes right knee. Moderate degenerative change left knee. [facility] [place] EXAM: XR KNEE RIGHT (MIN 4 [...] not as severe as on the right. [place], [place] Anupam, [facility] Incoming Radiant Results From [email or web address] - 10/06/2020 6:40 PM EST EXAM: XR [...] right knee. Moderate degenerative change left knee. [facility] [place] CBC Auto Differentialon 08-26 Basophils (Bld) [#/Vol] 0.00 10*3/uL [place] Basophils/100 WBC (Bld) 0 % 0 - 2 % [place] Differential Type YES [place] Eosinophils (Bld) [#/Vol] 0.30 10*3/uL [place] Eosinophils/100 WBC (Bld) 3 % 0 - 5 % [place] Erythrocyte distribution width (RBC) [Ratio] 13.9 % 12.1 - 15.2 % [place] Hematocrit (Bld) [Volume fraction] 40.0 % 36 - 46 % [place] Hemoglobin (Bld) [Mass/Vol] 13.5 g/dL 12 - 16 g/dL [place] Lymphocytes (Bld) [#/Vol] 2.60 10*3/uL [place] Lymphocytes/100 WBC (Bld) 32 % 15 - 40 % [place] MCH (RBC) [Entitic mass] 31.4 pg 26 - 34 pg [place] MCHC (RBC) [Mass/Vol] 33.7 g/dL 31 - 37 g/dL [place] MCV (RBC) [Entitic vol] 93.1 fL 80 - 100 fL [place] Monocytes (Bld) [#/Vol] 0.50 10*3/uL [place] Monocytes/100 WBC (Bld) 7 % 4 - 8 % [place] Platelet mean volume (Bld) [Entitic vol] NOT REPORTED 6 - 12 fL [place] Platelets (Bld) [#/Vol] 266 10*3/uL [place] Platelets (Bld) [#/Vol] NOT REPORTED [place] RBC (Bld) [#/Vol] 4.29 10*6/uL 4 - 5.2 m/uL [place] RBC morphology finding Nom (Bld) NOT REPORTED [place] Segmented neutrophils/100 WBC (Bld) 58 % 47 - 75 % [place] Segs Absolute 4.70 [place] WBC (Bld) [#/Vol] 8.2 10*3/uL [place] WBC (Bld) [#/Vol] NOT REPORTED per 100 WBC [place] WBC Morphology NOT REPORTED [place] Comprehensive Metabolic Pane salima 09-13-2020 Albumin [Mass/Vol] 4.3 g/dL 3.5 - 5.2 g/dL [place] Albumin/Globulin [Mass ratio] NOT REPORTED [place] ALP [Catalytic activity/Vol] 99 U/L 35 - 104 U/L [place] ALT [Catalytic activity/Vol] 22 U/L 5 - 33 U/L [place] Anion gap [Moles/Vol] 11 mmol/L 9 - 17 mmol/L [place] AST [Catalytic activity/Vol] 22 U/L <32 [place] Bilirubin Ql (U) 0.73 mg/dL 0.3 - 1.2 mg/dL [place] Bun/Cre Ratio 25 High [place] Calcium [Mass/Vol] 9.7 mg/dL 8.6 - 10. 4 mg/dL [place] Chloride [Moles/Vol] 103 mmol/L 98 - 10 7 mmol/L [place] CO2 [Moles/Vol] 26 mmol/L 20 - 31 mmol/L [place] Creatinine [Mass/Vol] 0.77 mg/dL 0.5 - 0.9 mg/dL [place] GFR >60 >60 mL/min [place] GFR Non- >60 >60 mL/min [place] GFR/1.73 sq M predicted among non-blacks MDRD (S/P/Bld) [Vol rate/Area] NOT REPORTED [place] GFR/1.73 sq M predicted among non-blacks MDRD (S/P/Bld) [Vol rate/Area] [place], [place] Comment on above: Average GFR for 70 o r more years old: 75 mL/min/1.73sq m Chronic Kidney Disease: <60 mL/min/1.73sq m Kidney failure: <15 mL/min/1.73sq m eGFR calculated using average adult body mass. Additional eGFR calculator available at: http://www.Jdguanjia/multiple_crcl_2012.htm Glucose [Mass/Vol] 139 mg/dL High 70 - 99 mg/dL [place], [place] Interpretation and review of laboratory results Abnormal [place] Potassium [Moles/Vol] 4.1 mmol/L 3.7 - 5.3 mmol/L [place] Protein [Mass/Vol] 7.7 g/dL 6.4 - 8.3 g/dL [place] Sodium [Moles/Vol] 140 mmol/L 135 - 144 mmol/L [place], [place] Urea nitrogen [Mass/Vol] 19 mg/dL 8 - 23 mg/dL [place] Lipid Panelon 09-13-2020 Cholesterol [Mass/Vol] 150 mg/dL <200 [place] Comment on above: Cholesterol Guidelines: <200 Desirable 200-240 Borderline >240 Undesirable Cholesterol in HDL [Mass/Vol] 49 mg/dL >40 [place] Comment on above: HDL Guidelines: <40 Undesirable 40-59 Borderline >59 Desirable Cholesterol in LDL [Mass/Vol] 67 mg/dL 0 - 130 mg/dL [place], [place] Comment on above: LDL Guidelines: <100 Desirable 100-129 Near to/above Desirable 130-159 Borderline >159 Undesirable Direct (measured) LDL and calculated LDL are not interchangeable tests. Cholesterol in VLDL [Mass/Vol] NOT REPORTED High 1 - 30 mg/dL [place], [place] Cholesterol.total/Chol esterol in HDL [Mass ratio] 3.1 {ratio} <5 [place] Interpretation and review of laboratory results Abnormal [place] Triglyceride [Mass/Vol] 171 mg/dL High <150 [place], [place] Comment on above: Triglyceride Guidelines: <150 Desirable 150-199 Borderline 200-499 High >499 Very high Based on AHA Guidelines for fasting triglyceride, August 2012. Magnesiumon 09-13-2020 Magnesium [Mass/Vol] 1.9 mg/dL 1.6 - 2 .6 mg/dL [place], [place] Otheron 09-13-2020 Immature granulocytes (Bld) [#/Vol] NOT REPORTED 0 % [place] Patient Fasting?on 0 Patient Fasting? YES [place] TSH with Reflexon 09-13-2020 TSH Qn 2.67 m[IU]/L [place] Vitamin D 25 Hydroxyon 09-13 Vit D, 25-Hydroxy 34.7 ng/mL 30 - 100 ng/mL [place], [place] Comment on above: Reference Range: Vitamin D status Range Deficiency <20 ng/mL Mild Deficiency 20-30 ng/mL Sufficiency 30-100 ng/mL Toxicity >100 ng/mL XR CHEST (2 VW)on 09-13-2020 Cardiomegaly, ASVD, pulmonary hyperinflation with the probable underlying COPD. [place] EXAM: XR CHEST (2 VW) HISTORY: [...] low cervical metallic plate fusion is noted. [place] Anupam, [facility] Incoming Radiant Results From [email or web address] - 09/13/2020 11:58 AM EDT EXAM: XR [...] pulmonary hyperinflation with the probable underlying COPD. [place] CBC Auto Differentialon 12-0 Basophils (Bld) [#/Vol] 0.00 10*3/uL [place] Basophils/100 WBC (Bld) 0 % 0 - 2 % [place] Differential Type YES [facility] [place] Eosinophils (Bld) [#/Vol] 0.40 10*3/uL [place] Eosinophils/100 WBC (Bld) 6 % High 0 - 5 % [place] Erythrocyte distribution width (RBC) [Ratio] 13.7 % 12.1 - 15.2 % [place] Hematocrit (Bld) [Volume fraction] 39.4 % 36 - 46 % [place] Hemoglobin (Bld) [Mass/Vol] 13.4 g/dL 12 - 16 g/dL [place] Interpretation and review of laboratory results Abnormal [place] Lymphocytes (Bld) [#/Vol] 3.00 10*3/uL [place] Lymphocytes/100 WBC (Bld) 40 % 15 - 40 % [place] MCH (RBC) [Entitic mass] 32.3 pg 26 - 34 pg [place] MCHC (RBC) [Mass/Vol] 34.0 g/dL 31 - 37 g/dL [place] MCV (RBC) [Entitic vol] 95.0 fL 80 - 100 fL [place] Monocytes (Bld) [#/Vol] 0.60 10*3/uL [place], [place] Monocytes/100 WBC (Bld) 8 % 4 - 8 % [place] Platelet mean volume (Bld) [Entitic vol] NOT REPORTED 6 - 12 fL [place] Platelets (Bld) [#/Vol] 243 10*3/uL [place] Platelets (Bld) [#/Vol] NOT REPORTED [place] RBC (Bld) [#/Vol] 4.15 10*6/uL 4 - 5.2 m/uL [place] RBC morphology finding Nom (Bld) NOT REPORTED [place], [place] Segmented neutrophils/100 WBC (Bld) 46 % Low 47 - 75 % [place] Segs Absolute 3.60 [place] WBC (Bld) [#/Vol] NOT REPORTED per 100 WBC [place] WBC (Bld) [#/Vol] 7.7 10*3/uL [place] WBC Morphology NOT REPORTED [place] Comprehensive Metabolic Pane salima 10-27-2019 Albumin [Mass/Vol] 4.2 g/dL 3.5 - 5.2 g/dL [place] Albumin/Globulin [Mass ratio] NOT REPORTED [place] ALP [Catalytic activity/Vol] 107 U/L High 35 - 104 U/L [place] ALT [Catalytic activity/Vol] 21 U/L 5 - 33 U/L [place] Anion gap [Moles/Vol] 15 mmol/L 9 - 17 mmol/L [place] AST [Catalytic activity/Vol] 17 U/L <32 [place] Bilirubin Ql (U) 0.67 mg/dL 0.3 - 1.2 mg/dL [place] Bun/Cre Ratio 20 [place] Calcium [Mass/Vol] 10.0 mg/dL 8.6 - 10. 4 mg/dL [place], [place] Chloride [Moles/Vol] 104 mmol/L 98 - 10 7 mmol/L [place] CO2 [Moles/Vol] 23 mmol/L 20 - 31 mmol/L [place] Creatinine [Mass/Vol] 0.71 mg/dL 0.5 - 0.9 mg/dL [place] GFR >60 >60 mL/min [place] GFR Non- >60 >60 mL/min [place] GFR/1.73 sq M predicted among non-blacks MDRD (S/P/Bld) [Vol rate/Area] NOT REPORTED [place] GFR/1.73 sq M predicted among non-blacks MDRD (S/P/Bld) [Vol rate/Area] [place] Comment on above: Average GFR for 70 o r more years old: 75 mL/min/1.73sq m Chronic Kidney Disease: <60 mL/min/1.73sq m Kidney failure: <15 mL/min/1.73sq m eGFR calculated using average adult body mass. Additional eGFR calculator available at: http://www.[employer]APORT.[employer]/multiple_crcl_2011.htm Glucose [Mass/Vol] 136 mg/dL High 70 - 99 mg/dL [place] Interpretation and review of laboratory results Abnormal [place] Potassium [Moles/Vol] 3.6 mmol/L Low 3.7 - 5.3 mmol/L [place] Protein [Mass/Vol] 7.6 g/dL 6.4 - 8.3 g/dL [place] Sodium [Moles/Vol] 142 mmol/L 135 - 144 mmol/L [place] Urea nitrogen [Mass/Vol] 14 mg/dL 8 - 23 mg/dL [place] Lipid Panelon 10-27-2019 Cholesterol [Mass/Vol] 152 mg/dL <200 [place] Comment on above: Cholesterol Guidelines: <200 Desirable 200-240 Borderline >240 Undesirable Cholesterol in HDL [Mass/Vol] 59 mg/dL >40 [place] Comment on above: HDL Guidelines: <40 Undesirable 40-59 Borderline >59 Desirable Cholesterol in LDL [Mass/Vol] 70 mg/dL 0 - 130 mg/dL [place] Comment on above: LDL Guidelines: <100 Desirable 100-129 Near to/above Desirable 130-159 Borderline >159 Undesirable Direct (measured) LDL and calculated LDL are not interchangeable tests. Cholesterol in VLDL [Mass/Vol] NOT REPORTED 1 - 30 mg/dL [place] Cholesterol.total/Chol esterol in HDL [Mass ratio] 2.6 {ratio} <5 [place] Triglyceride [Mass/Vol] 114 mg/dL <150 [place] Comment on above: Triglyceride Guidelines: <150 Desirable 150-199 Borderline 200-499 High >499 Very high Based on AHA Guidelines for fasting triglyceride, August 2012. Magnesiumon 10-27-2019 Magnesium [Mass/Vol] 1.9 mg/dL 1.6 - 2 .6 mg/dL [place] Otheron 10-27-2019 Immature granulocytes (Bld) [#/Vol] NOT REPORTED [place] Patient Fasting?on 9 Patient Fasting? YES [place] TSH with Reflexon 10-27-2019 TSH Qn 2.50 m[IU]/L [place] Vitamin D 25 Hydroxyon 10-27 Interpretation and review of laboratory results Abnormal [place], [place] Vit D, 25-Hydroxy 6.4 ng/mL Low 30 - 100 ng/mL [place] Comment on above: Reference Range: Vitamin D status Range Deficiency <20 ng/mL Mild Deficiency 20-30 ng/mL Sufficiency 30-100 ng/mL Toxicity >100 ng/mL Vital Signs Date Time Vital Sign Value Performing Clinician Facility 01-03-2024 13:10-0500 Body height 167.6 cm Keena Mcguire DO Work Phone: [facility] 01-03-2024 13:10-0500 Body mass index (BMI) [Ratio] 37.93 kg/m2 Keena Mcguire DO Work Phone: [facility] 01-03-2024 13:10-0500 Body weight 106.59 kg Keena Mcguire DO Work Phone: [facility] 01-03-2024 13:04-0500 Body temperature 97.39 [degF] Keena Mcguire DO Work Phone: [facility] 12-26-2022 09:18-0500 Respiratory rate 18 /min Андрей Rodriguez MD [facility] 12-26-2022 07:32-0500 Body temperature 97.9 [degF] Андрей Rodriguez MD Work Phone: [facility] [employer] [facility] 12-26-2022 07:32-0500 Diastolic blood pressure 66 mm[Hg] Андрей Rodriguez MD Work Phone: [facility] [employer] 12-26-2022 07:32-0500 Heart rate 85 /min Андрей Rodriguez MD Work Phone: [facility] [employer] 12-26-2022 07:32-0500 SaO2% (BldA) [Mass fraction] 99 % Андрей Rodriguez MD Work Phone: [facility] [place] 12-26-2022 07:32-0500 Systolic blood pressure 133 mm[Hg] Андрей Rodriguez MD Work Phone: [facility] 12-25-2022 01:15-0500 Body mass index (BMI) [Ratio] 40.96 kg/m2 Андрей Rodriguez MD Work Phone: [facility] 12-25-2022 01:15-0500 Body weight 115.12 kg Андрей Rodriguez MD Work Phone: [facility] 12-18-2022 07:27-0500 Body height 167.6 cm Андрей Rodriguez MD Work Phone: [facility] 12-15-2022 20:36-0500 Diastolic blood pressure 73 mm[Hg] [facility] 12-15-2022 20:36-0500 Mean blood pressure 89 mm[Hg] [facility] 12-15-2022 20:36-0500 Systolic blood pressure 122 mm[Hg] [facility] 12-15-2022 20:10-0500 Heart rate 80 /min [facility] 12-15-2022 20:10-0500 SaO2% (BldA) [Mass fraction] 98 % [facility] 12-15-2022 20:10-0500 Respiratory rate 18 /min [facility] 12-15-2022 20:09-0500 Body temperature 98.24 [degF] [facility] 12-15-2022 20:09-0500 Diastolic blood pressure 73 mm[Hg] [facility] 12-15-2022 20:09-0500 Mean blood pressure 90 mm[Hg] [facility] 12-15-2022 20:09-0500 Systolic blood pressure 122 mm[Hg] [facility] 12-15-2022 18:40-0500 Hourly Rounding [facility] 12-15-2022 18:40-0500 Promise to Return [facility] 12-15-2022 17:17-0500 Hourly Rounding [facility] 12-15-2022 17:17-0500 Promise to Return [facility] 12-15-2022 16:26-0500 Hourly Rounding [facility] 12-15-2022 16:26-0500 Promise to Return [facility] 12-15-2022 15:34-0500 Heart rate 67 /min [facility] 12-15-2022 15:34-0500 SaO2% (BldA) [Mass fraction] 95 % [facility] 12-15-2022 15:34-0500 Body temperature 97.52 [degF] [facility] 12-15-2022 15:33-0500 Diastolic blood pressure 77 mm[Hg] [facility] 12-15-2022 15:33-0500 Mean blood pressure 89 mm[Hg] [facility] 12-15-2022 15:33-0500 Systolic blood pressure 112 mm[Hg] [facility] 12-15-2022 11:45-0500 Heart rate 66 /min [facility] 12-15-2022 11:45-0500 SaO2% (BldA) [Mass fraction] 97 % [facility] 12-15-2022 11:44-0500 Body temperature 98.06 [degF] [facility] 12-15-2022 11:44-0500 Mean blood pressure 83 mm[Hg] [facility] 12-15-2022 08:59-0500 Heart rate 74 /min [facility] 12-15-2022 00:27-0500 Blood Pressure Location [facility] 12-15-2022 00:27-0500 Respiratory rate 16 /min [facility] 12-14-2022 20:22-0500 gluc 159 mg/dL [facility] 12-14-2022 16:27-0500 gluc 128 mg/dL [facility] 12-14-2022 16:00-0500 Body temperature 97.7 [degF] [facility] 12-14-2022 11:50-0500 gluc 109 mg/dL [facility] 12-14-2022 08:44-0500 Heart rate 66 /min [facility] 12-14-2022 00:55-0500 Blood Pressure Location [facility] 12-14-2022 00:55-0500 Mean blood pressure 89 mm[Hg] [facility] 12-14-2022 00:55-0500 Respiratory rate 18 /min [facility] 12-13-2022 09:51-0500 Heart rate 70 /min [facility] 12-13-2022 09:00-0500 Body temperature 98.06 [degF] [facility] 12-13-2022 09:00-0500 Heart rate 64 /min [facility] 12-13-2022 04:24-0500 Blood Pressure Location [facility] 12-13-2022 01:36-0500 Mean blood pressure 85 mm[Hg] [facility] 12-13-2022 00:00-0500 Body temperature 97.34 [degF] [facility] 12-13-2022 00:00-0500 Heart rate 67 /min [facility] 12-12-2022 22:07-0500 Respiratory rate 25 /min [facility] 12-12-2022 21:00-0500 Respiratory rate 30 /min [facility] 12-12-2022 20:04-0500 Respiratory rate 27 /min [facility] 12-12-2022 19:02-0500 Heart rate 69 /min [facility] 12-07-2022 18:33-0500 Body height 167.6 cm Lakia Reza DO Work Phone: [employer] 12-07-2022 18:33-0500 Body mass index (BMI) [Ratio] 43.58 kg/m2 Lakia Reza DO Work Phone: [employer] 12-07-2022 18:33-0500 Body temperature 98.01 [degF] Lakia Reza DO Work Phone: [employer] 12-07-2022 18:33-0500 Body weight 122.47 kg Lakia Reza DO Work Phone: [employer] 12-07-2022 18:33-0500 Diastolic blood pressure 84 mm[Hg] Lakia Reza DO Work Phone: [employer] 12-07-2022 18:33-0500 Heart rate 79 /min Lakia Reza DO Work Phone: [employer] 12-07-2022 18:33-0500 Respiratory rate 20 /min Lakia Reza DO Work Phone: [employer] 12-07-2022 18:33-0500 SaO2% (BldA) [Mass fraction] 94 % Lakia Reza DO Work Phone: [employer] 12-07-2022 18:33-0500 Systolic blood pressure 162 mm[Hg] Lakia Reza DO Work Phone: [employer] 06-30-2022 08:17-0400 Blood Pressure Location Efrain ESPARZA [facility] 06-30-2022 08:17-0400 Body temperature 98.06 [degF] Efrain ESPARZA [facility] 06-30-2022 08:17-0400 Diastolic blood pressure 82 mm[Hg] Efrain ESPARZA [facility] 06-30-2022 08:17-0400 Heart rate 61 /min Efrain ESPARZA [facility] 06-30-2022 08:17-0400 SaO2% (BldA) [Mass fraction] 97 % Efrain ESPARZA [facility] 06-30-2022 08:17-0400 Systolic blood pressure 138 mm[Hg] Efrain ESPARZA [facility] 10-02-2021 00:45-0400 Diastolic blood pressure 112 mm[Hg] [facility]ierrez [facility] 10-02-2021 00:45-0400 SaO2% (BldA) [Mass fraction] 97 % Michael Gutierrez MD [facility] 10-02-2021 00:45-0400 Systolic blood pressure 132 mm[Hg] Michael Gutierrez [facility] 10-02-2021 00:13-0400 Body mass index (BMI) [Ratio] 41.16 kg/m2 Michael Gtuierrez MD Work Phone: [facility] 10-02-2021 00:13-0400 Body temperature 97.3 [degF] Michael Gutierrez MD Work Phone: [facility] 10-02-2021 00:13-0400 Body weight 115.67 kg Michael Gutierrez MD Work Phone: [facility] 10-02-2021 00:13-0400 Heart rate 71 /min Michael Gutierrez MD Work Phone: [facility] 10-02-2021 00:13-0400 Respiratory rate 16 /min Michael Gutierrez MD Work Phone: [facility] 06-11-2021 08:35-0400 Body mass index (BMI) [Ratio] 40.35 kg/m2 Xena Andrews MD Work Phone: [facility] Work Phone: 06-11-2021 08:35-0400 Body temperature 98.6 [degF] Xena Andrews MD Work Phone: [employer] Work Phone: 06-11-2021 08:35-0400 Body weight 113.4 kg Xena Andrews MD Work Phone: [employer] Work Phone: 06-11-2021 08:35-0400 Diastolic blood pressure 63 mm[Hg] Xena Andrews MD Work Phone: [facility] Work Phone: 06-11-2021 08:35-0400 Heart rate 66 /min Xena Andrews MD Work Phone: [employer] Work Phone: 06-11-2021 08:35-0400 Respiratory rate 18 /min Xena Andrews MD Work Phone: [employer] Work Phone: 06-11-2021 08:35-0400 SaO2% (BldA) [Mass fraction] 95 % Xena Andrews MD Work Phone: [employer] Work Phone: 06-11-2021 08:35-0400 Systolic blood pressure 164 mm[Hg] Xena Andrews MD Work Phone: [employer] Work Phone: 03-08-2021 11:43-0400 BMI (Body Mass Index) 40.35 kg/m2 Vesailyn Freddie [facility] Work Phone: 03-08-2021 11:43-0400 Body Temperature 98.29 [degF] [employer] Phone: 03-08-2021 11:43-0400 Body weight 113.4 kg [employer] Phone: 03-08-2021 11:43-0400 BP Diastolic 74 mm[Hg] [employer] Phone: 03-08-2021 11:43-0400 BP Systolic 164 mm[Hg] [employer] Phone: 03-08-2021 11:43-0400 Height 167.6 cm [employer] Phone: 03-08-2021 11:43-0400 Pulse (Heart Rate) 83 /min [employer] Phone: 03-08-2021 11:43-0400 Pulse Oximetry 95 % [employer] Phone: 03-08-2021 11:43-0400 Respiratory Rate 20 /min [employer] Phone: Encounters Encounter Date Encounter Type Care Provider Facility Start: 01-03-2024 End: 01-03-2024 ambulatory KEENA MCGUIRE Not Available Start: 01-03-2024 End: 01-03-2024 Patient encounter procedure Keena Mcguire DO Work Phone: [facility] Comment on above: Bilateral carpal petr fifi syndrome (Primary Dx); Left hip pain Start: 12-03-2023 End: 12-06-2023 ambulatory [facility] Start: 09-06-2023 End: 09-09-2023 ambulatory [facility] Start: 03-05-2023 End: 03-05-[address] AQUILINO MEYER Facility:[facility] Start: 02-28-2023 End: 02-28-[address] AQUILINO MEYER Facility:[facility] Start: 02-23-2023 End: 02-23-2023 ambulatory BEN SHAYY Facility:[facility] Start: 01-29-2023 End: 01-29-[address] AQUILINO MEYER Facility:[facility] Start: 01-26-2023 End: 01-26-2023 ambulatory DIMITRIOS WILLETT Jossy Facility:[facility] Start: 01-15-2023 ambulatory Efrain ESPARZA Facility: [facility] Start: 12-16-2022 End: 12-26-2022 Evaluation and management of inpatient EMILIANO DENG [facility] Start: 12-16-2022 End: 12-26-2022 Evaluation and management of inpatient Андрей Rodriguez MD Work Phone: [employer] [facility] Comment on above: Closed fracture of r ight ankle, initial encounter (Primary Dx) Start: 12-12-2022 End: 12-15-2022 Observation David WHITEHEAD [facility] Start: 12-07-2022 End: 12-07-2022 Emergency department patient visit [facility] Start: 12-07-2022 End: 12-07-2022 Emergency department patient visit [facility] Work Phone: [facility] ED Comment on above: Closed fracture of d istal end of right fibula, unspecified fracture morphology, initial encounter (Primary Dx) Start: 09-28-2022 End: 09-28-2022 Patient encounter procedure Efrain ESPARZA [facility] Start: 08-08-2022 End: 08-10-2022 Subsequent hospital visit by physician [facility] Echo Room [facility] ECHO Comment on above: Aortic valve stenosi s, etiology of cardiac valve disease unspecified Atrial fibrillation, unspecified type (HCC); Essential hypertension; Coronary artery disease involving capitan [place] band coronary artery of capitan [place] band heart without angina pectoris; Hyperlipidemia, unspecified hyperlipidemia type; Ischemic cardiomyopathy; Vitamin D deficiency disease; Mitral valve insufficiency, unspecified etiology Start: 07-25-2022 End: 07-25-2022 Patient encounter procedure MERISSA DONALD [facility] Start: 06-30-2022 End: 06-30-2022 Patient encounter procedure Efrain Chambers ISAIAS [facility] Start: 06-19-2022 End: 06-19-2022 Patient encounter procedure Efrain ESPARZA [facility] Start: 05-22-2022 End: 08-20-2022 Recurring ALMA HIGH [facility] Start: 05-03-2022 End: 05-05-2022 Subsequent hospital visit by physician [facility] Additional Xray [facility]iology Comment on above: Pain in both wrists Start: 05-03-2022 End: 05-03-2022 Patient encounter procedure Efrain ESPARZA [facility] Start: 05-03-2022 End: 05-05-2022 Subsequent hospital visit by physician Efrain Esparza MD Work Phone: [facility] Radiology Start: 11-07-2021 End: 11-07-2021 Subsequent hospital visit by physician Berkley Garza [facility] Physical Therapy Comment on above: Arrived Start: 10-02-2021 End: 10-02-2021 Emergency department patient visit Michael Gutierrez MD Work Phone: [facility] ED Comment on above: Contusion of ribs, r ight, initial encounter (Primary Dx); Contusion of thoracic spine; Contusion of lower back, initial encounter Start: 09-12-2021 End: 09-14-2021 Subsequent hospital visit by physician [facility] Echo Room [facility] ECHO Comment on above: Mitral valve insuffi ciency, unspecified etiology Atrial fibrillation, unspecified type (HCC); Coronary artery disease involving capitan grande band coronary artery of capitan grande band heart without angina pectoris; Essential hypertension; Hyperlipidemia, unspecified hyperlipidemia type; Ischemic cardiomyopathy; Vitamin D deficiency disease Start: 06-15-2021 End: 06-17-2021 Subsequent hospital visit by physician Efrain Esparza MD Work Phone: [facility] Radiology Start: 06-13-2021 End: 06-15-2021 Subsequent hospital visit by physician Cesar Martin [facility] Vascular Lab Comment on above: Pain of left calf Start: 06-11-2021 End: 06-11-2021 Emergency department patient visit Xena Andrews MD Work Phone: [facility] ED Comment on above: Pain in left hip (Pr imary Dx); Pain of left calf; Essential hypertension; Osteoarthritis of left hip, unspecified osteoarthritis type Start: 06-09-2021 End: 06-11-2021 Subsequent hospital visit by physician Cesar Additional Xray At [facility] Radiology Comment on above: Paresthesia Start: 03-08-2021 End: 03-08-2021 Emergency department patient visit King Frazier Work Phone: [facility] ED Comment on above: Injury of head, init ial encounter (Primary Dx) Start: 02-08-2021 End: 05-15-2022 Recurring HOLLY FARFAN [facility] Start: 02-02-2021 End: 02-04-2021 Subsequent hospital visit by physician Ian Mri Scanner [facility] MRI Comment on above: Left leg weakness; Lumbosacral radiculopathy; Has numbness Start: 10-06-2020 End: 10-08-2020 Subsequent hospital visit by physician Cesar Additional Xray At [facility] Radiology Comment on above: Primary osteoarthrit is of right knee Start: 10-06-2020 End: 10-08-2020 Subsequent hospital visit by physician Efrain Esparza [facility] Radiology Start: 09-24-2020 End: 09-26-2020 [facility] Comment on above: Bruit Start: 09-13-2020 End: 09-15-2020 Subsequent hospital visit by physician Cesar Echo Room Maranda Pinon [facility] RESPIRATORY THERAPY Comment on above: Atrial fibrillation, unspecified type (HCC); Coronary artery disease involving capitan grande band coronary artery of capitan grande band heart without angina pectoris; Essential hypertension Ischemic cardiomyopa thy Atrial fibrillation, unspecified type (HCC); Coronary artery disease involving capitan grande band coronary artery of capitan grande band heart without angina pectoris; Essential hypertension; Hyperlipidemia, unspecified hyperlipidemia type; Vitamin D deficiency disease Start: 10-27-2019 End: 10-27-2019 Subsequent hospital visit by physician Efrain Esparza [facility] Laboratory Comment on above: Chronic systolic con gestive heart failure (HCC); Dyslipidemia; Vitamin D deficiency disease; Hypertension, unspecified type Procedures Date Procedure Procedure Detail Performing Clinician Start: 01-03-2024 Arthrocentesis aspir &/inj interm jt/burs w/us Owen Coles PA Work Phone: Start: 01-03-2024 Radex hip unilateral [...] of hip usi ng fluoroscopic guidance Efrain ISAIAS Comment on above: left hip-90% relief Start: [...] ESPARZA Start: 11-26-2005 neck surgery 4 Efrain ALMITA MATT Comment on above: 4-5-6 Ligation of fallopian tube J ohn ISAIAS Plan of Treatment Date Care Activity Detail Author Start: 08-27-2030 DTaP/Tdap/Td vaccine (2 - Td or Tdap) DTaP/Tdap/Td vaccine (2 - Td or Tdap) [facility] Start: 08-27-2030 DTaP/Tdap/Td vaccine (2 - Td) DTaP/Tdap/Td vaccine (2 - Td) [facility] Work Phone: Start: 09-13-2023 End: 09-13-2023 Patient encounter procedure 09/13/2023 Office Visit Cardiology Emiliano Deng MD [address] [place] [address] [facility] [employer] Start: 08-08-2023 Lipid panel Lipids [facility] Start: 07-27-2023 Influenza vaccination Influenza Vacc ine (#1) [facility] Start: 09-14-2022 End: 09-14-2022 Patient encounter procedure 09/14/2022 Office Visit Cardiology Emiliano Deng MD [address] [place] [id number] [facility] [employer] Start: 09-12-2022 Creatinine measurement Creatinine mo [facility] Start: 09-12-2022 Lipid panel [facility] Start: 09-12-2022 Potassium monitoring Potassium monit [facility] Start: 07-27-2022 Influenza vaccination Flu vaccine (# 1) [facility] Start: 12-22-2021 COVID-19 Vaccine (4 - Booster for Pfizer series) COVID-19 Vaccine (4 - Booster for Pfizer series) [facility] Start: 11-17-2021 End: 11-17-2021 Patient encounter procedure 11/17/2021 Appointment Physical Therapy Shanita Henry PT [facility] Start: 11-15-2021 End: 11-15-2021 Patient encounter procedure 11/15/2021 Appointment Physical Therapy Shanita Henry, PT [facility] Start: 11-10-2021 End: 11-10-2021 Patient encounter procedure 11/10/2021 Appointment Physical Therapy Shanita Henry, PT [facility] Start: 09-19-2021 End: 09-19-2021 Office Visit 09/19/2021 Office Visit Cardiology Emiliano Deng MD [address] [place] [address] [facility] [employer] Start: 09-13-2021 Creatinine measurement Creatinine mo [place], [place] Start: 09-13-2021 Lipid panel Lipid screen [place] Start: 09-13-2021 Potassium monitoring Potassium monit [place], [place] Start: 07-27-2021 Influenza vaccination Flu vaccine (# 1) [facility] [employer] Phone: Start: 06-13-2021 End: 07-12-2021 VL DUP LOWER EXTREMITY VENOUS LEFT VL DUP LOWER EXTREMITY VENOUS LEFT Imaging Routine Pain of left calf Expected: 06/13/2021, Expires: 07/12/2021 [facility] Phone: Comment on above: Expected: 06/13/2021 , Expires: 07/12/2021 Start: 10-27-2020 Creatinine measurement Creatinine mo [place], [place] Start: 10-27-2020 Lipid panel Lipid screen [place], [place] Start: 10-27-2020 Potassium monitoring Potassium monit [place] Start: 10-22-2020 Shingles Vaccine (2 of 2) Shingles Vaccine (2 of 2) [facility] Start: 09-20-2020 End: 09-20-2020 Office Visit 09/20/2020 Office Visit Cardiology Emiliano Deng MD [address] [place] [address] [facility] [employer] Start: 07-27-2020 Influenza vaccination Flu vaccine (# 1) [place], [place] Start: 06-27-2020 Creatinine monitoring Creatinine mon itoring [place] Start: 06-27-2020 Lipid screen Lipid screen [place], [place] Start: 06-27-2020 Potassium monitoring Potassium monit oring [place] Start: 11-04-2019 End: 11-04-2019 Office Visit 11/04/2019 Office Visit Cardiology Emiliano Deng MD [address] [place] [address] [phone] [facility] [employer] Start: 07-27-2019 Influenza vaccination Flu vaccine (# 1) [place] Start: 05-18-2019 Annual Wellness Visi t (AWV) Annual Wellness Visit (AWV) [facility] Start: 2002 DEXA (modify frequen cy per FRAX score) DEXA (modify frequency per FRAX score) [place] Start: 2002 Pneumococcal 65+ yea rs Vaccine (1 of 1 - PPSV23) Pneumococcal 65+ years Vaccine (1 of 1 - PPSV23) [place] Start: 2002 Pneumococcal 65+ yea rs Vaccine (2 of 2 - PPSV23) Pneumococcal 65+ years Vaccine (2 of 2 - PPSV23) [facility] [employer] Phone: Start: 1992 Screening for osteoporosis DEXA (modify frequency per FRAX score) [facility] Start: 1987 Shingles Vaccine (1 of 2) Shingles Vaccine (1 of 2) [place] Start: 1956 DTaP/Tdap/Td vaccine (1 - Tdap) DTaP/Tdap/Td vaccine (1 - Tdap) [place] Start: 1953 COVID-19 Vaccine (1 of 2) COVID-19 Vaccine (1 of 2) [facility] [employer] Phone: Start: 1953 COVID-19 Vaccine (1) COVID-19 Vaccin e (1) [facility] [employer] Phone: Start: 1949 COVID-19 Vaccine (1) COVID-19 Vaccin e (1) [facility] [employer] Phone: Start: 1949 Depression Screen Depression Screen [facility] [employer] Start: 1948 DTaP/Tdap/Td vaccine (1 - Tdap) DTaP/Tdap/Td vaccine (1 - Tdap) [facility] [place] Start: 1937 Annual Wellness Visi t (AWV) Annual Wellness Visit (AWV) [facility] [employer] Dup-scan xtr veins complete bilateral study VASCULAR REPORT Imaging Ordered: 06/14/2021 [facility] Phone: Comment on above: Ordered: 06/14/2021 End: 09-13-2020 ECHO Complete 2D W Doppler W Color ECHO Complete 2D W Doppler W Color Echocardiography Routine Ischemic cardiomyopathy 1 Occurrences starting 09/13/2020 until 09/13/2020 [place] Comment on above: 1 Occurrences starti ng 09/13/2020 until 09/13/2020 End: 09-12-2021 ECHO Complete 2D W Doppler W Color ECHO Complete 2D W Doppler W Color Echocardiography Routine Mitral valve insufficiency, unspecified etiology 1 Occurrences starting 09/12/2021 until 09/12/2021 [facility] Phone: Comment on above: 1 Occurrences starti ng 09/12/2021 until 09/12/2021 End: 08-08-2022 ECHO Complete 2D W Doppler W Color ECHO Complete 2D W Doppler W Color Echocardiography Routine Aortic valve stenosis, etiology of cardiac valve disease unspecified 1 Occurrences starting 08/08/2022 until 08/08/2022 [facility] [employer] Phone: Comment on above: 1 Occurrences starti ng 08/08/2022 until 08/08/2022 [facility]KG [facility] [place] End: 09-24-2020 VL DUP CAROTID BILATERAL VL DUP CAROTID BILATERAL Imaging Routine Bruit 1 Occurrences starting 09/24/2020 until 09/24/2020 [place] Comment on above: 1 Occurrences starti ng 09/24/2020 until 09/24/2020 VL DUP CAROTID BILATERAL VL DUP CAROTID BILATERAL Imaging Routine Bruit 09/24/2020 3:28 PM EDT [facility], [place] XR Hip - left 3 Views XR hip lef t 2 or 3 views Imaging Routine Left hip pain 01/03/2024 12:50 PM EST [facility] Work Phone: End: 10-02-2021 XR RIBS RIGHT INCLUDE CHEST (MIN 3 VIEWS) XR RIBS RIGHT INCLUDE CHEST (MIN 3 VIEWS) Imaging Routine Once for 1 Occurrences starting 10/02/2021 until 10/02/2021 [facility] Work Phone: Comment on above: Once for 1 Occurrenc es starting 10/02/2021 until 10/02/2021 XR RIBS RIGHT INCLUD E CHEST (MIN 3 VIEWS) XR RIBS RIGHT INCLUDE CHEST (MIN 3 VIEWS) Imaging STAT 10/02/2021 1:29 AM EDT [facility] Work Phone: Immunizations Immunization Date Immunization Notes Care Provider Colleen bautista 09-14-2022 SARS-CoV-2 (COVID-19 ) [id number] [facility] 09-06-2022 influenza virus vacc ine, unspecified formulation [facility] 09-13-2021 influenza virus vacc ine, unspecified formulation [employer] [facility] Comment on above: Result Comment: [facility] 08-22-2021 SARS-CoV-2 (COVID-19 ) mRNA BNT-162b2 [employer] ([employer]) [facility] Comment on above: Result Comment: [facility] 01-21-2021 SARS-CoV-2 (COVID-19 ) mRNA BNT-162b2 [employer] ([employer]) [facility] Comment on above: Result Comment: Brittany Pinon 12-31-2020 SARS-CoV-2 (COVID-19 ) mRNA BNT-162b2 [employer] ([employer]) [facility] Comment on above: Result Comment: Brittany Pinon 08-27-2020 influenza virus vacc ine, unspecified formulation Efrain ESPARZA [facility] 08-27-2020 tetanus toxoid, redu desiree diphtheria toxoid, and acellular pertussis vaccine, adsorbed Efrain ESPARZA [facility] 08-27-2020 zoster vaccine recombinant Efrain ESPARZA [facility] 09-04-2019 influenza virus vacc ine, unspecified formulation Efrain ESPARZA [facility] 08-26-2019 influenza virus vacc ine, unspecified formulation Efrain ESPARZA [facility] 08-26-2018 influenza virus vacc ine, unspecified formulation Efrain ESPARZA [facility] 08-27-2017 influenza virus vacc ine, unspecified formulation Efrain ESPARZA [facility] 10-11-2016 pneumococcal polysaccharide vaccine, 23 valent Efrain ESPARZA [facility] 08-29-2016 influenza virus vacc ine, unspecified formulation Efrain ESPARZA [facility] 08-29-2016 pneumococcal conjuga te vaccine, 13 valent Efrain ESPARZA [facility] 08-28-2016 pneumococcal conjuga te vaccine, 13 valent Efrain ESPARZA [facility] 08-27-2013 influenza virus vacc ine, unspecified formulation Efrain ESPARZA [facility] 08-27-2013 pneumococcal polysaccharide vaccine, 23 valent Efrain ESPARZA [facility] Payers Date Payer Category Payer Medicare [employer] MEDICARE UHC DUAL COMPLETE [id number] 2023-Present [address] [place] [address] [id number] 2019 Medicaid MEDICAID [place] [facility] [id number] 2019-Present [phone] [address] [place] [address] Medicaid [id number] 2017 Unknown BCBS BCBS - [place] P PO xxxxxxxxxxxx 2017-Present [address] [place] [address] xxxxxxxxxxxx [id number] 2014 Medicaid [id number] 2014 Medicare MEDICARE MEDICAR E PART A AND B xxxxxxxxxxx 2014-Present [phone] [address] [address] [place] [address] xxxxxxxxxxx [id number] 2014 Medicare [id number] 2014 Medicare [id number] 1959 Medicaid [id number] 1937 Unknown [id number] 1937 Unknown [id number] 1937 Unknown [id number] 1937 Unknown [id number] [id number] 1937 Unknown [id number] 1937 Unknown [id number] [id number] 1937 Unknown [id number] [id number] 1937 Unknown [id number] [id number] 1937 Unknown [id number] [id number] 1937 Unknown [id number] [id number] 1937 Unknown [id number] 1937 Unknown [id number] [id number] 1937 Unknown [id number] [id number] 1937 Unknown [id number] 1937 Unknown [id number] Social History Date Type Detail Facility Start: 06-30-2019 End: 09-14-2022 Tobacco smoking status NHIS Former smoker [place], [place] History of tobacco use Cigarette Smoker [place], [place] Start: 1935 Sex Assigned At Not on file [place] Start: 11-04-2019 End: 08-24-2023 Tobacco use and exposure Never used [place] Start: 11-27-2022 End: 12-16-2022 Exposure to SARS-CoV-2 (event) Not sure [facility] Phone: Start: 06-11-2021 End: 12-16-2022 Alcohol intake Ex-drinker (finding) [facility] Phone: Start: 01-03-2024 Sex Assigned At Female F [facility] Tobacco smoking status Never [facility] History of tobacco use Current smoker [facility] [employer] Phone: Start: 10-31-2022 History SDOH Alcohol Frequency 1 [employer] Work Phone: Start: 10-31-2022 History SDOH Alcohol Std Drinks [address] [facility] [place] Work Phone: Tobacco [facility] Comment on above: denies Tobacco smoking status No Smokin g Status Entered [facility] Start: 08-24-2023 Tobacco smoking stat us [facility] Never smoked tobacco [facility] Start: 01-03-2024 History of Social function [facility] Functional Status Date Assessment Result Facility 12-12-2022 Functional Status No [facility] 12-12-2022 Functional Status [facility] 06-30-2022 Functional Status N/A [facility] Clinical Notes 06-11-2021 to 01-03-2024 Divine Carter MA - 01/03/2024 1:15 PM Mario Alberto Avalos RN - 12/26/2022 12:25 PM Brandy Swain RPH - 12/26/2022 10:44 AM ALEXANDRU Pantoja - 12/26/2022 9:11 AM ESTAttachments Note Date [...] by the patient. documented in this encounter [facility] 12-26-2022 History of Present illness Narrative Pt leaves via [facility] transport. Daughter to follow to [facility]. Report called to nurse Jimenez at [facility]. Images from the original note were not included. [facility] Inpatient Discharge Medication Education Note Patient [...] 12/26/2022 10:11 AM SW received message from [facility] this morning that insurance approval has been received. SW spoke with pt's dtr Osbaldo and they are not able to transport today. SW arranged wheelchair van transport for 12- 1230 pm picker/puller. Nursing and Osbaldo notified of time. Osbaldo to come up and see pt as well. Pas ID completed last week and faxed to facility. No further needs identified at this time. Anny TRUJILLO SOFTWARE TRAINER 12/26/2022 Hospitalist Progress Note 12/26/2022 6:35 AM [...] get herself washed up at this time. Motor Inspection Mechanic assisted with cee care and washed her back. Clothes changed and new brief applied. Assisted patient back to recliner. Patient has no further needs at this time, will continue to monitor. States nausea is better. I think I was just tired . States she is able to take her vitamin E capsule. MALI called to [facility] to see if insurance precert had been authorized and they have not had received precert as of yet. MALI faxed updates to [facility] and provided phone number to the floor in case they would receive precert later in the day. SW following. Anny HORVATH 12/25/2022 [facility] Occupational Therapy Daily Note Date: 12/25/2022 [...] no LOB. Short Term Goal 5: N/A Sample Selector Goals Time Frame for Sample Selector Goals : STG=LTG Call light in reach, [...] are for her to [facility] to [facility] for further care. Diet: ADULT DIET; Regular; [...] treatment / therapy. Plan to DC to [facility] when approved by insurance. Differential Diagnosis: [...] the patient's current medications (including all prescriptions, dkwu-lwe-xhzgwtm products, herbals, cannabis / cannabidiol products, vitamin [...] being provided or has been provided this er year. ( ) I did not confirm [...] family brings in outside lunch for patient. [facility] Occupational Therapy Daily Note Date: 12/24/2022 Patient Name: Aleena Gill : 1935 (87 y.o.) Subjective: Pt in chair sleeping upon arrival Pt is PROGRESSING toward goals and independence of Self Care this treatment session Continue to assess Pending Progress Objective ADL Equipment Provided: Power Hair Clipper, Sock aid UE Bathing: Modified independent LE [...] no LOB. Short Term Goal 5: N/A Sample Selector Goals Time Frame for Mcc Goals : STG=LTG Call light in reach, Phone in reach, Use of Gait belt, and Left in chair Time In: 705 Time Out: 740 Timed Coded Minutes: 35 Total Treatment Time: 35 MARIN Franco, OTR/L Date: 12/24/2022 Up from chair and to BR with boot on to RLE. Pt does fairly well. Has small BM. Cee care provided. [facility] Occupational Therapy Daily Note Date: 12/23/2022 Patient Name: Aleena Gill : 1935 (87 y.o.) Subjective: Pt in therapy room following PT session. Pt is PROGRESSING toward goals and independence of Self Care this treatment session Continue to assess Pending Progress Objective Sit to stand: Contact guard assistance Stand to sit: Contact guard assistance Assessment Assessment: Pt in therapy room with GUEST RELATIONS AGENT upon arrivla. Agreeable to work with OTR. Engaged in THAIS UB exercises/activity this am. Addressed raschel knitting machine operator/pinch strength & exercises in all [...] no LOB. Short Term Goal 5: N/A Mcc Goals Time Frame for Sample Selector Goals : STG=LTG Call light in reach, Phone in reach, Use of Gait belt, and Left in chair Time In: 740 Time Out: 810 Timed Coded Minutes: 30 Total Treatment Time: 30 MARIN Franco, OTR/L Date: 12/23/2022 MALI met with pt's dtr Merari in pt's room this morning and explained that referral made to [facility] for skilled care and await insurance authorization for her transfer. SW explained to Merari that this will move her up to first on their list for assisted living if she is in their facility for skilled care. MALI called to [facility] and spoke with Kirsty, as Ben is off today, and she reports that precert has been started and they are just awaiting insurance approval. MALI provided contact number to SW office and to the hospital floor. SW called and left a message for pt's dtr Osbaldo as well. SW following and await insurance authorization for pt to transfer. Anny TRUJILLO SOFTWARE TRAINER 12/22/2022 SW spoke with pt's dtr Osbaldo and she is in agreement with plan. Pas ID completed and faxed to facility in case pt would discharge over the weekend if prior auth is received. Anny ROCHAW 12/22/2022 Hospitalist Progress Note 12/22/2022 12:14 PM [...] -s/p surgical repair by Dr. Mcguire at [facility], continue PT and OT, on Percocet [...] Anticoagulation Nicholas Rowan MD, MD Rounding Hospitalist [facility] Occupational Therapy Daily Note Date: 12/22/2022 [...] no LOB. Short Term Goal 5: N/A Sample Selector Goals Time Frame for Sample Selector Goals : STG=LTG Call light in reach, [...] No further orders for now. [facility] Occupational Therapy Plan of Care [...] no LOB. Short Term Goal 5: N/A Sample Selector Goals Time Frame for Mcc Goals : STG=LTG ANTWON Cabrera/[place] Date: 12/21/2022 [facility] Occupational Therapy Daily Note Date: 12/21/2022 [...] x5 minutes with SBA and no LOB. Sample Selector Goals Time Frame for Sample Selector Goals : STG=LTG Call light in reach, Phone in reach, Use of Gait belt, Chair alarm, and Left in chair Time In: 0847 Time Out: 932 Timed Coded Minutes: 46 [...] pain. Therapy evals and notes sent to [facility], per their request, so determination can be made re: placement. Will assist with discharge planning as appropriate. ALEXANDRU Blair 12/21/2022 Swingbed IDT team meeting held this morning regarding pt progress. Swing bed coordinator reports that pt's dtr has contacted [facility] regarding the assisted living and pt could be transferred there as a skilled pt to be in their facility and then transition to assisted living from there. MALI made referral to [facility] and spoke with Ben. Discussed with [...] faxed information and will await response from [facility]. Anny ROCHAW 12/20/2022 [facility] Occupational Therapy Daily Note Date: 12/20/2022 [...] x5 minutes with SBA and no LOB. Sample Selector Goals Time Frame for Mcc Goals : STG=LTG Call light in reach, Phone in reach, Use of Gait belt, Chair alarm, and Left in chair Time In: 845 Time Out: 923 Timed Coded Minutes: 38 Total Treatment Time: 38 ANTWON Cabrera/Charlotte Date: 12/20/2022 [facility] Swing Bed Interdisciplinary Care Plan Conference Report Recertification for Continued Skilled Care. Patients name:Aleena Gill Date of Conference: 12/20/2022 The Following Information was discussed and agreed upon with the patient and/or Caregivers as listed below. Names of Team Members and Caregivers present for meeting: Instructional Technology Director: Lisset Gauthier Nursing: Zack William Therapy: Zack Juarez PT; Charlotte Ashraf/ANTWON Marbleizing Machine Tender: Reyes Simpson Activities: Amanda Marinelli Pastoral Care: [...] Goal: PO >75% meals and supplements Spiritual: Christian needs met: [x] Yes [] No [] N/A Notified Manager Work or Parts Salvager of admission: [] Yes [] No [x] [...] x5 minutes with SBA and no LOB. Sample Selector Goals Time Frame for Sample Selector Goals : STG=LTG Physical Therapy: Transfers: Transfers [...] Goal: Participate in 3 activities per week Instructional Technology Director: Plan for Discharge: Update insurance today. Swing bed coordinator reports that pt's dtr has contacted [facility] regarding the assisted living and pt could be transferred there as a skilled pt to be in their facility and then transition to assisted living from there. Follow Up/Services needed: Referral made to [facility] for continued SNF care, await response. Continued skilled needs: PT/OT Skilled Services are for the ongoing condition for which the individual received inpatient care in a hospital. Physician signature certifies patient continued need for SNF inpatient care. Physical Therapy [facility] Physical Therapy Date: 12/20/2022 Patient Name: [...] [] Pt Unavailable due to: Мария Lozada, GUEST RELATIONS AGENT Date: 12/20/2022 Comprehensive Nutrition Assessment Type and [...] muscle mass loss Fluid Accumulation: Mild Extremities Systems Integration Manager Strength: Not Performed Nutrition Assessment: Continued increased [...] Anthropometric Measures: Height: 5' 6 (167.6 cm) [place] Body Weight (IBW): 130 lbs (59 kg) [...] Used for Energy Requirements: Current Energy (kcal/day): 1911-9609 (11-15) Weight Used for Protein Requirements: [place] Protein (g/day): 63-73 (1.2-1.4) Method Used for [...] Weight, Fluid Status or Edema Discharge Planning: MARIT SIMPSON RD, [place]ERO[place] Contact: [phone] This nurse gives pain medication, see eMAR [...] needs, will continue to monitor. Physical Therapy [facility] Date: 12/19/2022 Physical Therapy Daily Note Patient Name: Aleena Gill : 1935 (87 y.o.) Pt is PROGRESSING toward goals and increased independence of mobility this treatment session Assessment Assessment: Patient seated up in chair after working with MIKE. States she is tired but agrees to do what she can with GUEST RELATIONS AGENT. Performs seated exercises as outlined above but [...] Goals: NA Mcc Goals Time Frame for Mcc Goals : 7 days (12/22/2022) Sample Selector Goal 1: Patient to transfer sit to stand modified independent Mcc Goal 2: Patient to transfer supine to sit and sit to supine modified independent Mcc Goal 3: Patient to ambulate 75 ft x2 with w.walker and protective boot R Le modified independent Sample Selector Goal 4: Patient to have good dynamic standing balance to complete ADLS safely Мария Leung [facility] Therapy License Number: GUEST RELATIONS AGENT Date: 12/19/2022 [facility] Occupational Therapy Daily Note Date: 12/19/2022 [...] Treatment Time: 39 JIM Silva Date: 12/19/2022 [facility] Occupational Therapy Daily Note Date: 12/19/2022 [...] at sink) UE Dressing: Setup, Modified independent (jass molina and petey) LE Dressing: Minimal assistance (LB clothing management [...] multiple reports of feeling tired and she (GUEST RELATIONS AGENT) wore me out . Noticeable SOB, shakiness [...] x5 minutes with SBA and no LOB. Sample Selector Goals Time Frame for Mcc Goals : STG=LTG Inpatient safety: Call light in reach, Phone in reach, Use of Gait belt, Nurse Notified, and Left in chair Time In: 1029 Time Out: 1111 Timed Coded Minutes: 42 Total Treatment Time: 42 JIM Silva Date: 12/19/2022 Private duty care listing and phone number to [facility] left in pt room with pt and her son to give to her dtr. Anny TRUJILLO SOFTWARE TRAINER 12/19/2022 OT relays to marketing underwriter that patient was short of breath and shaking during ambulation to bathroom. This nurse assesses patient to find her upright in chair talking on telephone. SpO2 reads 93% on room with 108 HR. No sob noted, talking without difficulty. Pt denies pain at this time. Physical Therapy [facility] Date: 12/19/2022 Physical Therapy Daily Note [...] remains in therapy room to work with WAREHOUSE DIRECTOR. Safety Devices Type of Devices: Gait belt (in w/c in therapy room to work with WAREHOUSE DIRECTOR) Use of Gait belt and Other Staff Present ; in w/c in therapy room to work with MIKE Time In: 1000 Time Out: 1027 Timed Coded Minutes: 27 Total Treatment Time: 27 Exercises: See Flowsheets Plan Cont Per Plan Of Care Goals Short Term Goals Time Frame for Short Term Goals: NA Sample Selector Goals Time Frame for Sample Selector Goals : 7 days (12/22/2022) Mcc Goal [...] ADLS safely Мария Lozada Therapy License Number: GUEST RELATIONS AGENT Date: 12/19/2022 Physical Therapy [facility] Date: 12/18/2022 Physical Therapy Daily Note [...] She agrees to stay and work with GUEST RELATIONS AGENT. She is able to complete seated exercises [...] Goals: NA Mcc Goals Time Frame for Sample Selector Goals : 7 days (12/22/2022) Mcc Goal 1: Patient to transfer sit to stand modified independent Sample Selector Goal 2: Patient to transfer supine to sit and sit to supine modified independent Sample Selector Goal 3: Patient to ambulate 75 ft x2 with w.walker and protective boot R Le modified independent Sample Selector Goal 4: Patient to have good dynamic standing balance to complete ADLS safely Мария Leung [facility] Therapy License Number: GUEST RELATIONS AGENT Date: 12/18/2022 [facility] Occupational Therapy Daily Note Date: 12/18/2022 [...] left in w/c in therapy room w/ GUEST RELATIONS AGENT upon conclusion of OT session. Activity Tolerance: [...] no LOB. Mcc Goals Time Frame for Sample Selector Goals : STG=LTG Other Staff Present : pt left w/ GUEST RELATIONS AGENT Time In: 1330 Time Out: 1411 Timed Coded Minutes: 41 Total Treatment Time: 41 MARIN Franco, OTR/L Date: 12/18/2022 SW and operations project manager met with pt and pt's dtr Osbaldo. Pt is alert and oriented and cooperative with assessment. Pt is a 87 year old female admitted for generalized weakness from [facility] [place] an ankle fracture and repair. Pt was admitted on 12/16/2022. Pt lives alone in her apartment in [place]. Pt's dtr lives close and checks on [...] assist with discharge planning. Anny HORVATH 12/18/2022 [facility] Occupational Therapy Evaluation Date: 12/18/2022 Patient Name: Aleena Gill : 1935 (87 y.o.) Gender: female Referring Practitioner: Dr. Rodriguez Diagnosis: Generalized weakness Additional Pertinent Hx: Admitted to [facility] on 12/16/22 due to generalized weakness. [...] Cane Prior Function Receives Help From: Family, front desk attendant Ambulation Assistance: Independent (with w.walker) Transfer [...] Time Frame for Mcc Goals : STG=LTG Plan Times Per Week: [...] discharge by case management. Patient Name: Aleena Glil Date of : 1935 Diagnosis: Weakness [R53.1] [...] with: Alone Type of Home: Apartment Primary Associate Professor Of Automation: Self Patient Support Systems include: Children, Family [...] Plan for transportation at discharge: Financial Payor: [facility] MEDICARE / Plan: [employer] COMPLETE / Product Type: *No Product type* / Does insurance require precert for SNF: Yes Potential assistance Purchasing Medications: No [id number]-cj-[id number] request: [facility] - [place], [place] - [address] [place] [address] - F [phone] [place] [id number] [id number] 4 [facility] [phone] - F [phone] [place] [phone] Notes: Factors facilitating achievement of predicted outcomes: [...] [R53.1] IF APPLICABLE: The Patient and/or patient group sales representative Aleena and her family were provided with a choice of provider and agrees with the discharge plan. [place] of choice list with basic dialogue that supports the patient's individualized plan of care/goals and shares the quality data associated with the providers was provided to: Patient Patient Table Assembler Metal Name: The Patient and/or Patient Table Assembler Metal Agree with the Discharge Plan? Yes Osbaldo William RN Case Management Department Physical Therapy [facility] Date: 12/18/2022 Physical Therapy Daily Note [...] the bathroom. Walking boot is donned per GUEST RELATIONS AGENT. Sit to stand from chair is min/CGA. [...] Present, and Left in chair Time In: 0842 Time Out: 0912 Timed Coded Minutes: 30 Total Treatment Time: 30 . Exercises: See Flowsheets Plan Cont Per Plan Of Care Goals Short Term Goals Time Frame for Short Term Goals: NA Sample Selector Goals Time Frame for Sample Selector Goals : 7 days (12/22/2022) Mcc Goal 1: Patient to transfer sit to stand modified independent Mcc Goal 2: Patient to transfer supine to sit and sit to supine modified independent Sample Selector Goal 3: Patient to ambulate 75 ft x2 with w.walker and protective boot R Le modified independent Sample Selector Goal 4: Patient to have good dynamic standing balance to complete ADLS safely [facility] License Number: GUEST RELATIONS AGENT Date: 12/18/2022 Hospitalist Progress Note 12/18/2022 8:03 [...] -s/p surgical repair by Dr. Mcguire at [facility], continue PT and OT, Percocet as [...] the patient's current medications (including all prescriptions, lbkg-qmw-hwzqbvx products, herbals, cannabis / cannabidiol products, vitamin [...] arrangement) [x] Personal Phone Number Located on [facility] [x] Swing Bed Team Meetings [...] not have a copy on file, director of environmental services notified and will follow up. [] [...] is it to you to participate in methodist services or practices? Activity Care Plan: Will participate in activity programs of choice daily with no decline throughout SBU stay. CONSTRUCTION CARPENTER S SIGNATURE: Amanda Marinelli Date: 12/21/2022 Comprehensive Nutrition Assessment Type and Reason for Visit: Initial, Positive Nutrition Screen Nutrition Recommendations/Plan: Encourage oral intakes Encourage use of Ensure (prefers strawberry) Malnutrition Assessment: Malnutrition Status: At risk for malnutrition (Comment) (12/18/22 8805) Context: Acute Illness Findings of the 6 clinical characteristics of malnutrition: Energy Intake: Mild decrease in energy intake (Comment) (acutely) Weight Loss: No significant weight loss Body Fat Loss: No significant body fat loss Muscle Mass Loss: No significant muscle mass loss Fluid Accumulation: Mild Extremities Systems Integration Manager Strength: Not Performed Nutrition Assessment: Increased nutrient [...] Anthropometric Measures: Height: 5' 6 (167.6 cm) [place] Body Weight (IBW): 130 lbs (59 kg) [...] Used for Energy Requirements: Current Energy (kcal/day): 5411-7492 (11-15) Weight Used for Protein Requirements: [place] Protein (g/day): 63-73 (1.2-1.4) Method Used for [...] Discharge Planning: Sushant Cain RD, FEROZ Contact: [phone] Patient continues to be monitored closely though [...] was ok'd with registration and the nursing parachute supervisor. Educated the patient on patient safety and emphasized that we are here to help. Moving patient to a room closer to the nurses station for closer monitoring and the benefit of a hercules bed. Patient is agreeable with switching rooms from 270 to 258. This information with be shared with the Attending provider in the morning. Physical Therapy [facility] Date: 12/17/2022 Physical Therapy Daily Note [...] assist. Patient reaches for grab bar near [facility] prior to being safely in front of [facility]. Independet with cee care. Standing balance [...] Goals: NA Mcc Goals Time Frame for Sample Selector Goals : 7 days (12/22/2022) Mcc Goal 1: Patient to transfer sit to stand modified independent Sample Selector Goal 2: Patient to transfer supine to sit and sit to supine modified independent Mcc Goal 3: Patient to ambulate 75 ft x2 with w.walker and protective boot R Le modified independent Mcc Goal 4: Patient to have good dynamic standing balance to complete ADLS safely Мария Leung [facility] Therapy License Number: GUEST RELATIONS AGENT Date: 12/17/2022 Patient reports no longer having upset stomach, nausea, or diarrhea. Previous nurse (MAUREEN Khan) reports patient c/o nausea and not feeling well after 1800. Patient puts web content producer light to use the restroom. Patient states [...] elevated. Lunch aserved. Will continue to monitor. [facility] Physical Therapy Evaluation Date: 12/16/2022 Patient Name: Aleena Gill : 1935 (87 y.o.) Gender: female Referring Practitioner: Dr. Rodriguez Diagnosis: Right ankle Additional Pertinent Hx: Patient had fall at home and fx R ankle.Had ankle surgery yesterday at [facility] and arrived in swingbed late last night. [...] Independent (with w.walker) Transfer Assistance: Independent Active Gis Scientist: Yes Additional Comments: Daughter lives nearby and [...] Time Frame for Short Term Goals: NA Sample Selector Goals Time Frame for Sample Selector Goals : 7 days Mcc Goal 1: Patient to transfer sit to stand modified independent Sample Selector Goal 2: Patient to transfer supine to sit and sit to supine modified independent Sample Selector Goal 3: Patient to ambulate 75 ft [...] with script label adhered to box. Per parachute supervisor to administer as patient is day late on receiving dose which she takes every two weeks. 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 Regular low fat/low cholestenol, high fiber [...] it in. documented in this encounter [facility] Work Phone: 12-26-2022 Hospital Discharge instructions Андрей [...] with Efrain Esparza MD after discharge from [facility]. Dafne Avalos RN - 12/22/2022 1:23 PM EST Continuity of Care Form Patient Name: Aleena Gill : 1935 Admit date: 12/16/2022 Discharge date: 12/26/2022 Code Status Order: DNR-CCA Advance Directives: Admitting Physician: Андрей Rodriguez MD PCP: Efrain Esparza MD Discharging Nurse: Dafne REDDY Discharging Hospital Unit/Room#: 0258/0258-01 Discharging Unit Emergency Contact: Extended Emergency Contact Information Primary Emergency Contact: Merari [facility] Mobile Relation: Child Secondary Emergency Contact: DEANNASTANTON Mobile Relation: Child Preferred language: Gibraltarian Outsole Tacker needed? 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 Edema R60.9 Gastroesophageal reflux disease K21.9 Hallucinations R44.3 Hoarseness R49.0 Hyperglycemia R73.9 Hypothyroidism E03.9 Impacted cerumen H61.20 Mixed hyperlipidemia E78.2 Morbid obesity ([facility]) E66.01 Numbness of hand R20.0 Pain of left lower extremity M79.605 Rheumatoid arthritis ([facility]) M06.9 Spinal stenosis of lumbar region M48.061 Type 2 diabetes mellitus ([facility]) E11.9 Unsteadiness on feet R26.81 Generalized [...] Assisted Dressing Assisted Toileting Assisted Feeding Independent Engineering Production Worker Independent Med Delivery whole Wound Care Documentation [...] Readmission: 12 Discharging to Facility/ Agency Name: [facility] Address: [address] [place] [address] Dialysis Facility (if applicable) Name: Address: Dialysis Schedule: Phone: Fax: Obstetrical Tech/Operations Director signature: PHYSICIAN SECTION Prognosis: Good Condition at Discharge: Stable Rehab Potential (if transferring to Rehab): Good Recommended Labs or Other Treatments After Discharge: Physician Certification: I certify the above information and transfer of Aleena Gill is necessary for the continuing treatment of the diagnosis listed and that she requires [facility] Facility for greater 30 days. Update Admission H&P: No change in H&P PHYSICIAN SIGNATURE: The following attachments cannot be sent through Care Everywhere.Fatigue (Gibraltarian)Weakness: Generalized (Gibraltarian)Muscle Conditioning: Exercises (Gibraltarian)documented in this encounter BLAKE CORTEZ [employer] Work Phone: 12-15-2022 Hospital Discharge instructions Patient Education 12/15/2022 15:05:43 Ankle Fracture, Avfq-ss-Quxq Ankle Fracture The ankle joint is made [...] crutches as told by your doctor. Take cgpz-pxt-ljeksrw and prescription medicines only as told by [...] 09/09/2010 Document Revised: 10/25/2018 Document Reviewed: 12/17/2017 [employer] Patient Education 2020 [email or web address]. Follow Up Care 12/12/2022 19:02:47 With:Efrain ESPARZA Address: [address] Business (1) When: Unknown Comments:Call for followup appointment when d/c from SNF With:Keena Mcguire Address: [address] [place] [address]- Business (1) When:5 to 7 days [facility] 12-15-2022 Evaluation + Plan note Extrac jorge from: Title:Discharge Note Author:Ronel COELHO Date:12/15/22 Hemodynamically stable condi tion Discharge To, Anticipated II - [facility] Unit Discharge Status: Improved Discharge Instructions Given: [...] Daily With When Contact Information Efrain ESPARZA [facility] [address] [facility] [place] [address] [place] [address]- Business (1) Additional Instructions: Call for followup appointment when d/c from [facility] Keena Mcguire Within 5 to 7 days [address] [place] [address]- Business (1) Additional Instructions: Ankle Fracture, Tzpy-td-Ocns Extracted from: Title:APSO Note Author:Vero COELHO ate:12/15/22 1. Fracture of ankle (S82.89 9A: Other fracture of unspecified lower leg, initial encounter for closed fracture) 12/07/2022: R ankle fracture secondary to mechanical fall at home -12/07: Right ankle x-ray (at [place]) acute closed distal fibular fracture -12/09: Patient [...] deep vein thrombosis (DVT) prophylaxis (Z79.899: Other middle or intermediate school principal (current) drug therapy) -Lovenox Orders: XR Ankle 3+ Views Right XR Foot 3+ Views Right -Plan discussed w/ patient, nursing staff and CRM. -Disposition: Patient is awaiting pre-CERT This report was transcribed using voice recognition software. Every effort was made to ensure accuracy, however, inadvertently computerized cutter barrel drum mistakes may be present. Extracted from: Title:APSO Note Author:Roseann PADILLA Date:12/13/22 PLAN: 1. Fracture of ankle (S82.899A: Other fracture of unspecified lower leg, initial encounter for closed fracture) Prior ankle fracture on 12/07/2022 after a mechanical fall at home patient slid out of bed again on 12/09/2022 and squad with 3 bag builder had to assist patient to get off the floor. Patient has progressively weakened since ankle fracture. Per right ankle x-ray at [place] showed acute closed distal fibular fracture. Was [...] modifications. Extracted from: Title:Admission H & P Author:David WHITEHEAD MD te:12/12/22 1. Fracture of ankle (S82.89 9A: [...] care Influenza A&B Ag Rapid COVID Antigen ([facility]) Saline Lock Insert Troponin 0 Hr. UA With Cult Reflex XR Chest Single View Future Appointments Appointment Date:01/15/2023 03:00:00 PM Scheduled Provider:Efrain ESPARZA MD Location:[facility] Appointment Type:FM Open Diagnostic Tests Pending * Electrolyte Panel 12/16/22 [facility]01-12-2023 Hospital Discharge instructions* Discharge Instr [...] Contact Information Primary Emergency Contact: Merari [facility] Mobile Relation: Child Secondary Emergency Contact: STANTON HUERTA Mobile Relation: Child Preferred language: Gibraltarian Outsole Tacker needed? 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 Edema R60.9 Gastroesophageal reflux disease K21.9 Hallucinations R44.3 Hoarseness R49.0 Hyperglycemia R73.9 Hypothyroidism E03.9 Impacted cerumen H61.20 Mixed hyperlipidemia E78.2 Morbid obesity ([facility]) E66.01 Numbness of hand R20.0 Pain of left lower extremity M79.605 Rheumatoid arthritis ([facility]) M06.9 Spinal stenosis of lumbar region M48.061 Type 2 diabetes mellitus ([facility]) E11.9 Unsteadiness on feet R26.81 Isolation/Infection: Isolation No Isolation Patient Infection Status None to display Nurse Assessment: Last Vital Signs: There were no vitals taken for this visit. Last documented pain score (0-10 scale): Last Weight: Wt Readings from Last 1 Encounters: 10/31/22 250 lb (113.4 kg) Mental Status: {IP PT MENTAL STATUS:} IV Access: { CATIA IV ACCESS:733649774} Nursing Mobility/ADLs: Walking {CHP DME ADLs:520927788} Transfer {CHP DME ADLs:293380411} Bathing {CHP DME ADLs:424480053} Dressing {CHP DME ADLs:727873636} Toileting {CHP DME ADLs:886066388} Feeding {P DME ADLs:844442526} Engineering Production Worker {P DME ADLs:747391534} Med Delivery { CATIA MED Delivery:685627783} Wound Care Documentation and Therapy: Elimination: Continence: Bowel: {YES / NO:} Bladder: {YES / NO:} Urinary Catheter: {Urinary Catheter:461146062} Colostomy/Ileostomy/Ileal Conduit: {YES / NO:} Date of Last BM: No intake or output data in the 24 hours ending 12/07/22 1832 No intake/output data recorded. Safety Concerns: { CATIA Safety Concerns:280181345} Impairments/Disabilities: {[facility] Impairments/Disabilities:230493257} Nutrition Therapy: Current Nutrition Therapy: {[facility] Diet List:920359019} Routes of Feeding: {CHP DME Other Feedings:987578535} Liquids: {Temperature Logging Operator liquid thickness:85630} Daily Fluid Restriction: {CHP DME Yes amt example:007621005} Last Modified Barium Swallow with Video (Video Swallowing Test): {Done Not Done Date:} Treatments at the Time of Hospital Discharge: Respiratory Treatments: Oxygen Therapy: {Therapy; copd oxygen:49684} Ventilator: {[facility] Vent List:828673284} Rehab Therapies: {THERAPEUTIC INTERVENTION:1582774959} Weight Bearing Status/Restrictions: { CC Weight Bearin} Other Medical Equipment (for information only, NOT a DME order): {EQUIPMENT:920470513} Other Treatments: Patient's personal belongings (please select all that are sent with patient): {P DME Belongings:089115514} RN SIGNATURE: {Esignature:[id number]} CASE MANAGEMENT/SOCIAL WORK SECTION Inpatient Status Date: Readmission Risk Assessment Score: Readmission Risk Risk of Unplanned Readmission: 0 Discharging to Facility/ Agency Name: Address: Phone: Fax: Dialysis Facility (if applicable) Name: Address: Dialysis Schedule: Phone: Fax: Obstetrical Tech/Operations Director signature: {Esignature:[id number]} PHYSICIAN SECTION Prognosis: {Prognosis:4250776975} Condition at Discharge: { Patient Condition:654912467} Rehab Potential (if transferring to Rehab): {Prognosis:4701365820} Recommended Labs or Other Treatments After Discharge: Physician Certification: I certify the above information and transfer of Aleena Gill is necessary for the continuing treatment of the diagnosis listed and that she requires {Admit to Appropriate Level of Care:55663} for {GREATER/LESS:546770536} 30 days. Update Admission H&P: {CHP DME Changes in HandP:357294624} PHYSICIAN SIGNATURE: {Esignature:248330806} * Attachments The following attachments cannot be sent through Care Everywhere. * Ankle Fracture (Gibralt[place]) documented in this [facility] Phone: 1(329) 845-932508-05-2022 Hospital Discharge instructions Patient Education 06/30/2022 08:33:46 Hypertension, Adult, Gokp-rm-Btfv Hypertension, Adult Hypertension is another name for [...] your doctor. This is important. Medicines Take axvp-gqe-evxaeyf and prescription medicines only as told by [...] 04/30/2009 Document Revised: 07/23/2019 Document Reviewed: 07/23/2019 [employer] Patient Education 2020 [email or web address]. Follow Up Care 05/04/2022 08:53:43 With:ISAIAS BECERRA, Efrain Chambers, MED Address: [address], [place] [address]- When:Within 3 Month(s) [facility] 03-01-2022 Evaluation + Plan note Future Scheduled Tests Laboratory* HgbA1c 01/24/22 * CBC w/ Auto Diff 01/24/22 * Comprehensive Metabolic Panel 01/24/22 * Lipid Panel 01/24/22 [facility] 12-13-2021 History of Present illness Narrative* Berkley Garza, GUEST RELATIONS AGENT - 11/07/2021 10:30 AM EST Images from the original note were not included. [facility] Outpatient Physical Therapy Daily Note Date: [...] FWW to improve safety and reduce falls. Sample Selector Goals - Time Frame for terminal block assembler goals : 16 visits(POC exp 12/12/21) assisted goal 1: Pt to score > 34/80 on LEFS to improve pt ADLs. terminal block assembler goal 2: Pt to maintain Narrow OBED 10sec 2:3 trials without UEs to improve safety in shower. terminal block assembler goal 3: Pt to have 4/5 hip ABD strength to improve standing mirela. assisted goal 4: Pt to report no LOB/Falls x2 consecutive weeks to improve safety in the home. Post Treatment Pain: 10 Time In: 1032 Time Out: 1108 Timed Code Treatment Minutes: 36 Minutes Total Treatment Time: 36 Minutes Berkley Garza, JAMAR Date: 11/07/2021 documented in this [facility] Phone: 1(970) 203-348211-07-2021 Note No acute thoracic spine findings. If pain persists, further evaluation with CT scan or MRI could be considered. [facility] RIS [id number] [facility] Lower Extremities DVT Study Procedure Patient Name BRIDGET Date of Study 06/13/2021 ALEENA M Date of 1935 Gender Female Age 85 year(s) [facility] ID # [id number] Patient MR # [id number] Personnel Quality Assurance Auditor Kiya Forte, Interpreting Physician Heri Godoy Referring Nurse Referring [...] v. Signature ---- Electronically signed by RT Veronica(R)(M)(CT)(RDTX)(Personnel Quality Assurance Auditor) on 06/13/2021 01:40 PM Left Impression: CFV, [...] !Yes !None ! + + + + +[facility] Phone: [phone]) 173-938407-17-2021 Hospital Discharge instructions* Instructions* Xena Andrews MD - 06/11/2021 Alternate ibuprofen with Tylenol 500 to 650 mg every 4 hours for pain control. * Attachments The following attachments cannot be sent through Care Everywhere. * Hip Pain (Gibraltarian) * Hypertension: General Info (Gib[place]tarian) * Arthritis ([place]) [facility]: evaluation + Plan note Future Appointments Appointment Date:06/30/2022 08:00:00 AM Scheduled Provider:Efrain ESPARZA MD Location:[facility] Appointment Type: Open Future Scheduled Tests Laboratory* HgbA1c 01/24/22 * CBC w/ Auto Diff 01/24/22 * Comprehensive Metabolic Panel 01/24/22 * [facility]id [facility]22 [facility] Future Appointments Appointment Date:06/30/2022 08:00:00 AM Scheduled Provider:Efrain ESPARZA MD Location:[facility] note Future Appointments Appointment Date:10/06/2022 10:00:00 AM Scheduled Provider:Efrain ESPARZA MD Location:[facility] Appointment Type: Open Future Scheduled Tests Laboratory* HgbA1c 06/30/22 * CBC w/ Auto Diff 06/30/22 * Comprehensive Metabolic Panel 06/30/22 * Lipid Panel 06/30/22 * Thyroid Stimulating Hormone 06/30/22 * Free T4 06/30/22 [facility] Evaluation + Plan note Future Appointments Appointment Date:10/06/2022 10:00:00 AM Scheduled Provider:Efrain ESPARZA MD Location:[facility] Appointment Type:[facility] Hospital[facility]* Diagnosis Pain in left hip- Primary Pain in joint, pelvic region and thigh Pain of left calf Essential hypertension Unspecified essential hypertension Osteoarthritis of left hip, unspecified osteoarthritis type documented in this encounter [facility] Phone: [email or web address] note* Diagnosis Paresthesia Disturbance of skin sensation documented in this encounter [facility] Phone: [email or web address] note* Diagnosis Pain of left calf documented in this encounter [facility] Phone: [email or web address] note* Diagnosis Mitral valve insufficiency, unspecified etiology documented in this encounter [facility] Phone: [email or web address] note* Diagnosis Atrial fibrillation, unspecified type (HCC) Coronary artery disease involving [place] band coronary artery of [place] heart without angina pectoris Essential hypertension Unspecified essential hypertension Hyperlipidemia, unspecified hyperlipidemia type Ischemic cardiomyopathy Other specified forms of chronic ischemic heart disease Vitamin D deficiency disease Unspecified vitamin D deficiency documented in this encounter [facility] Phone: evalsswpct note* Diagnosis Atrial fibrillation, unspecified type (HCC) Coronary artery disease involving [place] coronary artery of [place] heart without angina pectoris Essential hypertension Unspecified essential hypertension Hyperlipidemia, unspecified hyperlipidemia type Ischemic cardiomyopathy Other specified forms of chronic ischemic heart disease Vitamin D deficiency disease Unspecified vitamin D deficiency documented in this encounter [facility] Phone: evaluation note* Diagnosis Atrial fibrillation, unspecified type (HCC) Coronary artery disease involving [place] coronary artery of [place] heart without angina pectoris Essential hypertension Unspecified essential hypertension Hyperlipidemia, unspecified hyperlipidemia type Ischemic cardiomyopathy Other specified forms of chronic ischemic heart disease Vitamin D deficiency disease Unspecified vitamin D deficiency documented in this encounter [facility] Phone: evaluation note* Diagnosis Contusion of ribs, right, initial encounter- Primary Contusion of thoracic spine Contusion of lower back, initial encounter documented in this encounter [facility] Phone: evaluation note* Diagnosis Pain in both wrists Pain in joint, forearm documented in this encounter [facility] Phone: evaluation note* Diagnosis Aortic valve stenosis, etiology of cardiac valve disease unspecified documented in this encounter [facility] Phone: evaluation note* Diagnosis Atrial fibrillation, unspecified type (HCC) Essential hypertension Unspecified essential hypertension Coronary artery disease involving [place] coronary artery of [place] heart without angina pectoris Hyperlipidemia, unspecified hyperlipidemia type Ischemic cardiomyopathy Other specified forms of chronic ischemic heart disease Vitamin D deficiency disease Unspecified vitamin D deficiency Mitral valve insufficiency, unspecified etiology documented in this encounter [facility] Phone: [email or web address] note* Diagnosis Atrial fibrillation, unspecified type (HCC) Essential hypertension Unspecified essential hypertension Coronary artery disease involving [place] coronary artery of [place] heart without angina pectoris Hyperlipidemia, unspecified hyperlipidemia type Ischemic cardiomyopathy Other specified forms of chronic ischemic heart disease Vitamin D deficiency disease Unspecified vitamin D deficiency Mitral valve insufficiency, unspecified etiology documented in this encounter [facility] Phone: evaluation note* Diagnosis Closed fracture of distal end of right fibula, unspecified fracture morphology, initial encounter- Primary documented in this encounter [facility] Phone: evaluation note* Diagnosis Generalized weakness- Primary Other malaise and fatigue Closed fracture of right ankle, initial encounter documented in this encounter [facility] Phone: Evaluation note* Diagnosis Bilateral carpal tunnel syndrome- Primary Carpal tunnel syndrome Left hip pain Pain in joint, pelvic region and thigh [facility] N[facility] No data available for this section [facility] Hospital Discharge instructions* Attachments The following attachments cannot be sent through Care Everywhere. * Rib Contusion (Gibraltarian) * Low Back Contusion (Gibraltarian) [facility] Work Phone: Hospital Discharge instructions No data available for this section [facility] Progress note No data available for this section [facility] Assessments Diagnosis Chronic systolic congestive heart failure (HCC) Chronic systolic heart failure Dyslipidemia Other and unspecified hyperlipidemia Vitamin D deficiency disease Unspecified vitamin D deficiency Hypertension, unspecified type Diagnosis Atrial fibrillation, unspecified type (HCC) Coronary artery disease involving [place] band coronary artery of [place] heart without angina pectoris Essential hypertension Unspecified essential hypertension Diagnosis Ischemic cardiomyopathy Other specified forms of chronic ischemic heart disease Diagnosis Atrial fibrillation, unspecified type (HCC) Coronary artery disease involving [place] band coronary artery of [place] heart without angina pectoris Essential hypertension Unspecified [...] unspecified type (HCC) Coronary artery disease involving [place] band coronary artery of [place] heart without angina pectoris Essential hypertension Unspecified essential hypertension Diagnosis Injury of head, initial encounter- Primary Advance Directives No Advanced Directives Records FoundDocuments on File Type Date Recorded Patient Table Assembler Metal Expl anation Advance Directives and Living Will Power of Tobacco Curer Documents on File Type Date Recorded Patient Table Assembler Metal Expl anation ACP-Advance Directive ACP-Power of Tobacco Curer Documents on File Type Date Recorded Patient Table Assembler Metal Expl anation ACP-Advance Directive ACP-Power of Tobacco Curer Latest Code Status on File Code Status [...] unspecified type (HCC) Coronary artery disease involving [place] band coronary artery of [place] heart without angina pectoris Essential hypertension Procedures EKG 12 Lead Emiliano Deng MD [address] [place] [address] Status Reason Specialty Diagnoses / Procedures Re ferred By Contact Referred To Contact Closed Cardiology Diagnoses Ischemic cardiomyopathy Procedures ECHO Complete 2D W Doppler W Color HC ECHO NO CONTRAST WITH DOP/COLR Emiliano Deng MD [address] [place] [address] Status Reason Specialty Diagnoses / Procedures Referre d By Contact Referred To Contact Closed Radiology Diagnoses Left leg weakness Lumbosacral radiculopathy Has numbness Procedures MRI lumbar spine without contrast Gaston Parekh, DO [address] [place] [id number] Status Reason Specialty Diagnoses / Procedures Referred By Contact Referred To Contact Pending Review Vascular Lab Diagnoses Bruit Procedures VL DUP CAROTID BILATERAL Emiliano Deng MD [address] [place] [address] [facility] [address] [place] [address] Status Reason Specialty Diagnoses / Procedures Referre d By Contact Referred To Contact Open Radiology Diagnoses Pain of left calf Procedures VL DUP LOWER EXTREMITY VENOUS LEFT Strus, Xena Porter MD [address] [place] [address] Status Reason Specialty Diagnoses / Procedures Referred By Contact Referred To Contact Pending Review Radiology Diagnoses Pain of left calf Procedures VL DUP LOWER EXTREMITY VENOUS LEFT Strus, Xena Porter MD [address] [place] [address] Status Reason Specialty Diagnoses / Procedures Referre d By Contact Referred To Contact Closed Cardiology Diagnoses Mitral valve insufficiency, unspecified etiology Procedures ECHO Complete 2D W Doppler W Color Emiliano Deng MD [address] [place] [address] Status Reason Specialty Diagnoses / Procedures Re ferred By Contact Referred To Contact Pending Review Cardiology Diagnoses Atrial fibrillation, unspecified type (HCC) Coronary artery disease involving [place] band coronary artery of [place] heart without angina pectoris Essential hypertension Hyperlipidemia, unspecified hyperlipidemia type Ischemic cardiomyopathy Vitamin D deficiency disease Procedures EKG 12 Lead Emiliano Deng MD [address] [place] [address] Specialty Diagnoses / Procedures Referred By Contac t Referred To Contact Cardiology Diagnoses Aortic valve stenosis, etiology of cardiac valve disease unspecified Procedures ECHO Complete 2D W Doppler W Color Emiliano Deng MD [address] [place] [address] Referral ID Status Reason Start Date Expiration Date V isits Requested Visits Authorized [id number] Pending Review 08/20/2022 08/20/2023 1 1 Specialty Diagnoses / Procedures Referred By Contac t Referred To Contact Orthopaedic Surgery Diagnoses Bilateral carpal tunnel syndrome Procedures M Inj/Asp: bilateral radiocarpal Keena Mcguire, DO [address] [place] [address] Referral ID Status Reason Start Date Expiration Date V isits Requested Visits Authorized [id number] Pending Review 01/03/2024 07/01/2024 1 1 Discharge Instructions * Attachments The following attachments cannot be sent through Care Everywhere. * Head Injury: Closed: General Info (Gibraltarian) documented in this encounter Summary Purpose Family [...] CONTRAST WITH DOP/COLR Emiliano Deng MD [address] [place] [address] Status Reason Specialty Diagnoses / Procedures Referre d By Contact Referred To Contact Closed Radiology Diagnoses Left leg weakness Lumbosacral radiculopathy Has numbness Procedures MRI lumbar spine without contrast Izabella Gaston M, DO [address] [place] [id number] Status Reason Specialty Diagnoses / Procedures Referred By Contact Referred To Contact Pending Review Vascular Lab Diagnoses Bruit Procedures VL DUP CAROTID BILATERAL Emiliano Deng MD [address] [place] [address] [facility] [address] [place] [address] Reason Comments Fall pt states she was [...] EXTREMITY VENOUS LEFT Strus, Xena Porter MD [address] [place] [address] Status Reason Specialty Diagnoses / Procedures Referre d By Contact Referred To Contact Closed Cardiology Diagnoses Mitral valve insufficiency, unspecified etiology Procedures ECHO Complete 2D W Doppler W Color Emiliano Deng MD [address] [place] [address] Reason Comments Fall Patient fell into si de of bath tub yesterday morning. No LOC didnt hit head. Has back pain now. Family staets has fallen multiple times over last [address] Esparza has ordered PT to help her get stronger. Specialty Diagnoses / Procedures Referred By Contac t Referred To Contact Physical Therapy Diagnoses Unsteadiness on feet Procedures physical therapy Efrain Esparza MD [address] [place] [address] Shanita Henry PT Referral ID Status Reason Start Date Expiration Date Visits Re quested Visits Authorized [id number] Open 10/17/2021 10/17/2022 20 20 Specialty Diagnoses / Procedures Referred By Contac t Referred To Contact Cardiology Diagnoses Atrial fibrillation, unspecified type (HCC) Coronary artery disease involving cap[place] band coronary artery of cap[place] band heart without angina pectoris Essential hypertension Hyperlipidemia, unspecified hyperlipidemia type Ischemic cardiomyopathy Vitamin D deficiency disease Procedures EKG 12 Lead Emiliano Deng MD [address] [place] [address] Referral ID Status Reason Start Date Expiration Date V isits Requested Visits Authorized [id number] Pending Review 09/20/2021 09/20/2022 1 1 Reason Comments Ankle Pain Patient presents to the ED with c/o right ankle pain - patient states she was putting on her nightgown and fell - scooted to her bedroom and sat on the bed - when she tried to stand up she heard a pop Specialty Diagnoses / Procedures Referred By Contac t Referred To Contact Diagnoses Weakness Generalized weakness Back, MD Ан[address] [place] [address] [facility] [address] [place] [address] Referral ID Status Reason Start Date Expiration Date Visits Re quested Visits Authorized [id number] 1 1 Reason Comments Pain (XR L [...] RN) 0851 (Given - Provider: Shakeel Yoder RN)2221 (Given - Provider: Judy Guthrie RN) 0848 [...] Discontinued 0811 (Given - Provider: Dafne Avalos RN)2045 (Given - Provider: Osbaldo Zhu RN) 0850 (Given - Provider: Shakeel Yoder RN)2236 (Given - Provider: Judy Guthrie RN - [...] 0549 (Given - Provider: Osbaldo Zhu RN) 06 (Given - Provider: Judy Guthrie, MAUREEN) lisinopril (PRINIVIL;ZESTRIL) tablet 20 mg 20 mg, [...] Zhu, MAUREEN) 06 (Given - Provider: Judy Guthrie, MAUREEN) potassium chloride (KLOR-CON) extended release tablet 10 [...] 5,000 Units Labeling may look different. 25 han=0329 Units. Please double check dosages., 5,000 Units, Oral, DAILY, First dose on 12/16/22 at 0900, Until Discontinued, Labeling may look different. 25 qlo=4195 Units. Please double check dosages. 0811 (Given - Provider: Dafne Avalos RN) 0850 (Given - Provider: Shakeel Yoder RN) 0848 (Given - Provider: Dafne Avalos RN) vitamin E capsule 400 Units 400 [...] Oral, EVERY 6 HOURS PRN, Starting on Sun12/22/22 at 1239, Until Discontinued, Indigestion ondansetron (ZOFRAN-ODT) disintegrating tablet 4 mg 4 mg, Oral, EVERY 8 HOURS PRN, Starting on Sherley 12/21/22 at 1205, Until Discontinued, Nausea, Vomiting 1249 (Given - Provider: Alden Michael RN) oxyCODONE-acetaminophen (PERCOCET) 5-325 MG per tablet 1 [...] RN) 0549 (Given - Provider: Osbaldo Zhu, MAUREEN)2222 (Given - Provider: Judy Guthrie, MAUREEN) 0848 (Given - Provider: Dafne Avalos, MAUREEN) senna (SENOKOT) tablet 17.2 mg 17.2 mg (2 tablet), Oral, 2 TIMES DAILY PRN, Starting on 12/16/22 at 0038, Until Discontinued, Constipation Care Teams (unrecognized sec tion and content) Foot Piece Assembler Relationship Specialty Start Date End Date Efrain Esparza MD [address] [facility] [place] [address] PCP - General Internal Medicine 01/10/18 Foot Piece Assembler Relationship Specialty Start Date End Date Efrain Esparza MD [address] [facility] [place] [address] PCP - General Internal Medicine 01/10/18 Foot Piece Assembler Relationship Specialty Start Date End Date Efrain Esparza MD [address] [facility] [address] PCP - General Internal Medicine 01/10/18 Foot Piece Assembler Relationship Specialty Start Date End Date Efrain Esparza MD [address] [facility] [place] [address] PCP - General Internal Medicine 01/10/18 Foot Piece Assembler Relationship Specialty Start Date End Date Efrain Esparza MD [address] [facility] [address] PCP - General Internal Medicine 01/10/18 Foot Piece Assembler Relationship Specialty Start Date End Date Efrain Esparza MD [address] [place] [address] PCP - General Internal Medicine 01/10/18 Foot Piece Assembler Relationship Specialty Start Date End Date Efrain Esparza MD [address] [place] [address] PCP - General Internal Medicine 01/10/18 Foot Piece Assembler Relationship Specialty Start Date End Date Efrain Esparza MD [address] [place] [address] PCP - General Internal Medicine 01/10/18 Foot Piece Assembler Relationship Specialty Start Date End Date Efrain Esparza MD [address] [place] [address] PCP - General Internal Medicine 01/10/18 Foot Piece Assembler Relationship Specialty Start Date End Date Efrain Esparza MD [address] [place] [address] PCP - General Internal Medicine 01/10/18 Foot Piece Assembler Relationship Specialty Start Date End Date Efrain Esparza MD [address] [place] [address] PCP - General Internal Medicine 05/21/23 INFORMATION SOURCE (unrecogn ized section and content) DATE CREATED AUTHOR 03/11/2023 [facility] DATE CREATED AUTHOR AUTHOR'S ORGANIZ ATION 12/06/2023 Maranda Zhang spig[facility]al[facility] DATE CREATED AUTHOR AUTHOR'S ORGANIZ ATION 01/04/2024 [facility] DATE CREATED AUTHOR AUTHOR'S ORGANIZ ATION 01/09/2024 [facility] FOR RECORDS PERTAINING TO PATIENTS WHO [...] BE BASED ON THE PRIMARY CLINICAL RECORDS. [employer] [facility]. provides no warranty or guarantee of the accuracy or completeness of information in this document.
[2024-07-06 13:10] LABS: Basophils Absolute Auto 0.1 10^3/uL (0.0-0.1); Basophils Percent Auto 0.6 % (0.2-2.0); Eosinophils Absolute Auto 0.6 10^3/uL (0.0-0.7); Eosinophils Percent Auto 5.7 % (0.9-7.0); Hemoglobin 12.4 g/dL (12.0-16.0); Immature Granulocytes Abs Auto 0.04 10^3/uL (0.00-0.03); Immature Granulocytes Pct Auto 0.4 % (0.0-0.5); Lymphocytes Absolute Auto 2.7 10^3/uL (1.2-3.8); Lymphocytes Percent Auto 24.9 % (20.5-60.0); Mean Corpuscular HGB Conc 33.5 g/dL (29.9-35.2); Mean Corpuscular Hemoglobin 31.5 pg (26.7-34.0); Mean Corpuscular Volume 93.9 fL (81.0-99.0); Mean Platelet Volume 8.9 fL (9.5-13.5); Monocytes Absolute Auto 0.9 10^3/uL (0.3-0.8); Monocytes Percent Auto 7.9 % (1.7-12.0); Neutrophils Absolute Auto 6.6 10^3/uL (1.4-6.5); Neutrophils Percent Auto 60.5 % (43.0-75.0); Platelet Count 344 10^3/uL (150-450); Red Blood Count 3.94 10^6/uL (4.20-5.40); White Blood Count 10.8 10^3/uL (4.0-11.0)
--- NOTE | 2024-07-06 13:11 | PC.NURSE ---
patient here from [facility] with complaints of frequent falls today and pain to her bilataral knees they are bone on bone and left hip that is bone on bone. patient denies hitting head. patient reports she has also been having frequent hallucinations, seeing children running and singing and a man standing behind her. patient states hallucinations have been occurring for a couple weeks.
[2024-07-06 13:23] LABS: Anion Gap 12.6; BUN Creatinine Ratio 20.4; Carbon Dioxide 29.4 mmol/L (21.0-32.0); Chloride 103 mmol/L (98-107); Estimated GFR (African America >60 (>=60); Estimated GFR (Non-African Ame 54 (>=60); Glucose 130 mg/dL (74-106); Sodium 141 mmol/L (136-145)
[2024-07-06 15:39] LABS: Bilirubin Urine NEGATIVE (NEGATIVE); Blood Urine NEGATIVE (NEGATIVE); Clarity Urine CLEAR (CLEAR); Color Urine LT. YELLOW (YELLOW); Glucose Urine UA NEGATIVE (NEGATIVE); Ketones Urine NEGATIVE (NEGATIVE); Leukocyte Esterase Urine SMALL (NEGATIVE); Nitrite Urine POSITIVE (NEGATIVE); Protein Urine NEGATIVE (NEG/TRACE); Specific Gravity Urine 1.015 (1.005-1.025)
[2024-07-06 15:47] LABS: Bacteria Urine MODERATE #/HPF (NONE SEEN); Cast Seen? NONE SEEN #/LPF (NONE SEEN); Crystals Seen? None Seen #/HPF (None Seen); Mucus Urine NONE SEEN (NONE SEEN); RBC Urine NONE SEEN #/HPF (0-2); Squamous Epithelial Cell Urine RARE #/LPF (NONE/RARE); Urine Culture Indicated YES
[2024-07-06] MEDS: CEPHALEXIN 500 MG CAPSULE PO (16:29)
--- NOTE | 2024-07-06 17:17 | PC.NURSE ---
report called to Verna at [facility]
== END 2024-07-06 17:48 | disposition home or self-care (01) ==
PROVIDERS: Emergency Provider Emergency Medicine; PCP Family Medicine
DX: N39.0 Urinary tract infection, site not specified (principal); Z91.81 History of falling; E66.9 Obesity, unspecified; Z68.39 Body mass index [BMI] 39.0-39.9, adult
CPT/HCPCS: 36415; 70450; 71045; 73502; 73562; 80048; 81001; 85025; 87086; 87150; 87186; 93005; 99285

== ENCOUNTER 2024-07-29 12:25 | Outpatient (REF) | payer MEDICARE, MEDICAID, SELFPAY ==
[2024-07-29 13:49] LABS: Bilirubin Urine NEGATIVE (NEGATIVE); Blood Urine SMALL (NEGATIVE); Clarity Urine CLEAR (CLEAR); Color Urine LT. YELLOW (YELLOW); Glucose Urine UA NEGATIVE (NEGATIVE); Ketones Urine NEGATIVE (NEGATIVE); Leukocyte Esterase Urine LARGE (NEGATIVE); Nitrite Urine POSITIVE (NEGATIVE); Protein Urine 30 mg/dL (NEG/TRACE); pH Urine 6.5 (5.0-9.0)
[2024-07-29 13:54] LABS: Urine Microscopic Indicated YES
[2024-07-29 14:02] LABS: Bacteria Urine LARGE #/HPF (NONE SEEN); Mucus Urine NONE SEEN (NONE SEEN); Squamous Epithelial Cell Urine RARE #/LPF (NONE/RARE); WBC Urine >100 #/HPF (NONE SEEN)
[2024-07-29 14:03] LABS: Urine Culture Indicated YES
== END 2024-07-29 12:26 | disposition home or self-care (01) ==
LOC: LAB 12:25
PROVIDERS: PCP Family Medicine; Visit Provider Family Medicine
DX: N39.0 Urinary tract infection, site not specified (principal)
CPT/HCPCS: 81001; 87086; 87186

== ENCOUNTER 2024-11-25 12:45 | Outpatient (OUT) | payer MEDICARE, MEDICAID, SELFPAY ==
--- OUTSIDE RECORDS SUMMARY | 2024-11-25 12:50 | XMS_ITS | CCD ---
Author Organization [facility] Care Team Providers Care Manager Talent Name Role Phone Efrain Esparza Primary Care Provider [phone] Efrain ESPARZA Primary Care Physician Isaias BECERRA, Efrain Gillespie Primary Care Provider [phone] Efrain Esparza MD Primary Care Provider Isaias [...] Referring Unavailable EFRAIN ESPARZA Primary Care Unavailable Efrain Esparza MD Primary Care Provider Efrain ESPARZA Attending Unavailable SHAYLA, KEENA Rey Referring Unavailable SHAYLA, KEENA Rey Attending Unavailable SHAYLA, KEENA Rey Referring Unavailable MCGUIRE, KEENA Rey Attending Unavailable SHAYLA, KEENA Rey Referring Unavailable Medications Current Medications Medication Drug Class(es) [...] Active acetaminophen 325 mg / oxyCODONE hydrochloride 10 mg oral tablet (10 sources) Opioid Agonist Start: 11-04-2024 End: 12-04-2024 take 1 tablet by mouth every six hours oxyCODONE-acetaminophen (Percocet) 10-325 MG tablet Indications: Severe pain Take 1 tablet by mouth every 6 (six) hours 120 tablet 11/04/2024 12/04/2024 Active Start: 09-07-2024 End: 10-28-2024 take 1 tablet by mouth every six hours oxyCODONE-acetaminophen (Percocet) 10-32 5 MG tablet Indications: Severe pain Take 1 tablet by mouth every 6 (six) hours 120 tablet 09/28/2024 10/28/2024 Active Start: 08-02-2024 End: 09-01-2024 take 1 tablet by mouth every six hours oxyCODONE-acetaminophen (Percocet) 7.5-3 25 MG tablet Indications: Arthritis pain Take 1 tablet by mouth every 6 (six) hours 120 tablet 08/02/2024 09/01/2024 Active Start: 12-26-2022 End: 01-02-2023 oxyCODONE-acetaminophen (PER COCET) 5-325 MG per tablet Indications: Closed fracture [...] / ipratropium bromide 0.167 mg/ml inhalation solution (9 sources) Anticholinergic, beta2-Adrenergic Agonist Start: 02-28-2023 ipratropium-albuterol (Duo-Neb) 0.5-2.5 mg/3 mL nebulizer solution 02/28/2023 Active aluminum hydroxide 40 mg/ml / magnesium hydroxide [...] aspirin chewable tablet 81 mg Start: 12-15-2022 aspirin 81 MG EC tablet Take 81 mg by mouth. 12/15/2022 Active Start: 02-06-2020 take 1 tablet by claire th once daily aspirin 81 mg oral tablet 81 mg = 1 tab(s), Oral, Daily Start Date: 02/06/20 Status: Ordered atorvastatin 20 mg oral tablet (20 sources) HMG-CoA Reductase Inhibitor Start: 12-27-2023 take 1 tablet by mouth in the morning atorvastatin (Lipitor) 20 MG tablet Take 20 mg by mouth in the morning. 12/27/2023 Active Start: 10-31-2021 atorvastatin ( LIPITOR) tablet 20 mg bisacodyl 10 mg rectal suppository (9 sources) Stimulant Laxative take 10 mg rectal route in the morning bisacodyl (Dulcolax) 10 MG suppository Insert 10 mg into the rectum in the morning. Active bumetanide 1 mg oral tablet (9 sources) Loop Diuretic Start: 3 bumetanide (Bumex) 1 MG tablet 08/18/2023 Active cholecalciferol 0.025 mg oral tablet (20 sources) Vitamin D Start: 3 Vitamin D (CHOLECALCIFEROL) tablet 5,000 Units take 1 tablet by mouth in the mo rning cholecalciferol (D3-5) 5,000 Units tablet Take 5,000 Units by mouth in the morning. Active take 1 tablet by mouth once jeni y Cholecalciferol (VITAMIN D3) 125 MCG (5000 UT) TABS Take 5,000 Units by mouth daily 0 Active Cranberry preparation (16 sources) Non-Standardized Food Allergenic Extract, Non-Standardized Plant Allergenic Extract Start: 01-15-2015 take 1 tablet by mouth once daily Cranberry oral tablet 1 tab, Oral, Daily, Refill(s) 0, Prophylaxis Start Date: 01/15/15 Status: Ordered Cranberry 400 MG capsule every 8 (eight) hours. Active Cranberry 400 MG capsule every 8 (eight) hours. 0 Active dextromethorphan hydrobromide 2 mg/ml / guaiFENesin 20 mg/ml oral suspension (9 sources) Uncompetitive P-sohgiu-B-aspartate Receptor Antagonist, Sigma-1 Agonist Dextromethorphan-gua iFENesin 10-100 MG/5ML liquid Take 5 mL by mouth Active docusate sodium 100 mg oral capsule (9 sources) take 1 capsule by mouth in the morning Docusate Sodium (DSS) 100 MG capsule Take 1 capsule by mouth in the morning. Active doxepin hydrochloride 10 mg oral capsule [...] 60 mg by mouth in the morning. 12/28/2023 Active Start: 08-18-2023 End: 10-21-2024 DULoxetine (Cymbalta) [address] capsule 08/18/2023 10/21/2024 Discontinued (Therapy completed) Start: 12-16-2022 DULoxetine (CY MBALTA) extended release capsule 30 mg Start: 12-15-2022 take 30 mg by mouth once daily duloxetine 30 mg, Oral, Daily, Refills(s) 0 Start Date: 12/15/22 Status: Ordered Start: 05-10-2021 take 30 mg by mouth once Cymba lta 30 mg, Oral, Daily, per Dr. Parekh decreased while in hospital Start Date: 05/10/21 Status: Ordered take 1 capsule by [facility] once daily DULoxetine (CYMBALTA) 60 MG extended [...] 20 mg gabapentin 100 mg oral capsule (16 sources) Anti-epileptic Agent Start: 12-21-2022 End: 12-22-2022 gabapentin (NEURONTIN) tablet 300 mg Start: 12-15-2022 End: 01-25-2023 gabapentin (Neurontin) 100 M G capsule Take 100 mg by mouth. 12/15/2022 Active Start: 11-13-2022 End: 12-26-2022 take 1 capsule [...] 06/11/2021 12/26/2022 Discontinued (Stop Taking at Discharge) levoFLOXacin 500 mg oral tablet (3 sources) Quinolone Antimicrobial Start: 08-03-2024 levoFLOXacin (Levaquin) 500 MG tablet 08/03/2024 Active levothyroxine sodium 0.025 mg oral tablet (20 [...] 50 mcg by mouth in the morning. 12/13/2022 Active Start: 10-31-2021 take 1 tablet by claire th once daily Synthroid 50 mcg (0.05 mg) Tab 50 microgram = 1 tab(s), Oral, Daily, # 90 tab(s), Refills(s) 3, Pharmacy: [address], [address], cm, 10/26/21 13:49:00 EST, Height/Length Dosing, 112.5, kg, 10/14/21 10:15:00 EST, Weight Dosing Start Date: 10/31/21 Status: Ordered lisinopril 20 mg oral tablet (20 sources) Angiotensin Converting Enzyme Inhibitor Start: 01-05-2018 End: 12-26-2022 lisinopril (PRINIVIL;ZESTRIL) tablet 20 mg loperamide hydrochloride 2 mg oral capsule (9 sources) Opioid Agonist loperamide (Imod ium) 2 MG capsule Take 2 mg by mouth Active methenamine hippurate 1000 mg oral tablet (3 sources) Start: 10-20-2024 methenamine hi ppurate (Hiprex) 1 g tablet 10/20/2024 Active metoprolol tartrate 100 mg oral tablet (20 sources) beta-Adrenergic Lucas Start: 01-22-2023 metoprolol tartrate (Lopressor) 100 MG tablet Take 100 mg by mouth 01/22/2023 Active Start: 12-26-2022 take 1 tablet by claire th once daily metoprolol tartrate (LOPRESSOR) 100 MG tablet Take 1 tablet by mouth daily 60 tablet 3 12/26/2022 Active Start: 12-16-2022 metoprolol tar trate (LOPRESSOR) tablet 100 mg Start: 12-15-2022 take 1 tablet by claire th every twenty-four hours metoprolol succinate XL (Toprol-XL) 100 MG 24 hr tablet Take 200 mg by mouth. 12/15/2022 Active Start: 12-15-2022 End: 12-15-2022 take [...] Daily, # 90 tab(s), Refills(s) 3, Pharmacy: [address], [address], cm, 01/24/22 11:42:00 EST, Height/Length [...] Refill(s) 0 Start Date: 12/13/22 Status: Ordered nystatin 100 unt/mg topical powder (3 sources) Polyene Antifungal Start: 024 nystatin (Mycostatin) 447612 UNIT/GM powder 10/20/2024 Active omeprazole 20 mg delayed release oral capsule (9 sources) Proton Pump Inhibitor Start: 023 omeprazole (PriLOSEC) [address] capsule 08/18/2023 Active ondansetron 4 mg oral tablet (10 sources) Serotonin-3 Receptor Antagonist Start: 023 ondansetron (Zofran) 4 MG tablet 06/23/2023 Active Start: 12-21-2022 ondansetron (Z OFRAN-ODT) disintegrating tablet [...] CR (Klor-Con M20) 20 MEQ ER tablet 08/18/2023 Active Start: 12-16-2022 potassium chlo ride (KLOR-CON) extended [...] daily 30 tablet 3 09/19/2021 Active sennosides, correction 8.6 mg oral tablet (3 sources) Start: 12-26-2022 End: 01-25-2023 take 2 tablets by mouth twice daily as needed for constipation senna (SENOKOT) 8.6 MG tablet Take 2 tablets by mouth 2 times daily as needed (Constipation) 0 12/26/2022 01/25/2023 Active Start: 12-16-2022 senna (SENOKOT ) tablet 17.2 mg Start: 12-15-2022 take 2 tablets by [facility] twice daily as needed Senokot 8.6 mg Tab 17.2 mg = 2 tab(s), Oral, BID, PRN Other (see comment), Refills(s) 0 Start Date: 12/15/22 Status: Ordered Mita, Josep Pen, 40 MG/0.4ML Auto-injector Kit (3 sources) Start: 09-13-2024 Simlandi, 1 Pe n, 40 MG/0.4ML Auto-injector Kit 09/13/2024 Active spironolactone 25 mg oral tablet (20 sources) Aldosterone Antagonist Start: 12-15-2023 spironolactone (Aldactone) 25 MG tablet Take 25 mg by mouth 12/15/2023 Active Start: 01-18-2021 spironolactone (ALDACTONE) tablet 25 mg triamcinolone acetonide 1 mg/ml topical cream (9 sources) Corticosteroid Start: 06-23-2023 triamcinolone (Kenalog) 0.1 % cream 06/23/2023 Active vitamin e 180 mg oral capsule (20 sources) Start: 12-25-2022 vitamin E caps ule 400 Units Start: 05-31-2019 vitamin E 400 International_Unit, Oral, Daily, Refills(s) 0 Start Date: 05/31/19 Status: Ordered alpha tocopherol (Vitamin E) 400 units capsule 1 capsule 1 (one) time each day at the same time. Active Completed/Discontinued Medications Medication Drug Class(es) Dates Sig (Normalized) Sig (Original) 0.8 ml adalimumab 50 mg/ml prefilled syringe (20 sources) Tumor Necrosis Factor Lucas Start: 08-30-2010 End: 08-30-2010 inject 40 mg by subcutaneous injection once Humira 40 mg/0.8 mL subcutaneous kit 40 mg = 0.8 mL, SubCutaneous, Further dosing per PCP or thread weaver, Refills(s) 0, Arthritis Start Date: 08/30/10 Stop Date: 08/30/10 Status: Ordered inject 40 mg by subc utaneous injection every other week Humira 40 MG/0.8ML Prefilled Syringe Kit prefilled syringe inject 40 milligram (1 SYRINGE) subcutaneously every OTHER WEEK Active adalimumab (HUMI RA) 40 MG/0.8ML injection Inject 40 mg into the skin every 14 days 0 Active adalimumab (HUMI RA) 40 MG/0.8ML injection Inject 40 mg into the skin once 0 Active betamethasone 3 mg/ml / betamethasone acetate 3 mg/ml injectable suspension (16 sources) Corticosteroid Start: 10-21-2024 End: 10-21-2024 betamethasone acetate-betamethasone sodium phosphate (Celestone) injection 6 mg Start: 10-21-2024 End: 10-21-2024 6 mg, Intra-articular, Once PRN Procedure, Starting on Sun10/21/24 at 1507, For 1 dose Start: 01-03-2024 End: 01-03-2024 betamethasone acetate-betame thasone sodium phosphate (Celestone) injection 6 mg Compression [...] International_Unit = 1 cap(s), Oral, Daily, per coal conveyor operator Start Date: 02/06/20 Status: Ordered Problems Active [...] D deficiency, unspecified] Onset: 12-03-2023 Chronic Osteoarthritis (4 sources) Osteoarthritis of left hip joint; Translations: [Unilateral primary osteoarthritis, left hip] Chronic Osteoarthritis (1 source) Osteoarthritis of right knee joint; Translations: [Primary osteoarthritis of right knee] Other aftercare (3 sources) Long-term current use of drug therapy; Translations: [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 operator (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) drug therapy] Onset: 12-14-2022 Episodic Other [...] Onset: 12-03-2023 Episodic Other nervous system disorders (6 sources) Bilateral carpal tunnel syndrome; Translations: [Carpal [...] edema; Translations: [LOCALIZED EDEMA] Onset: 02-23-2023 Episodic Residual codes; unclassified (3 sources) Severe pain; Translations: [Pain, unspecified] 09-07-2024 Episodic Rheumatoid arthritis and related disease (14 [...] Test Name Value Interpretation Reference Range Facility No Panel Informationon 10-21 Vida Ahuja MA 10/27/2024 6:20 PM M Inj/Asp: bilateral radiocarpal on 10/21/2024 3:07 PM Indications: pain Details: 25 G needle, ultrasound-guided anterolateral approach Medications (Right): 6 mg betamethasone acetate-betamethason e sodium phosphate 6 (3-3) MG/ML Medications (Left): 6 mg betamethasone acetate-betamethason e sodium phosphate 6 (3-3) MG/ML Procedure, treatment alternatives, risks and benefits explained, specific risks discussed. Consent was given by the patient. Immediately prior to procedure a time out was called to verify the correct patient, procedure, equipment, application support administrator and site/side marked as required. Patient was prepped and draped in the usual sterile fashion. 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 YELLOW YELLOW [facility] GLUCOSE URINE UA Negative NEGATIVE mg/dL [facility] Interpretation and review of laboratory results Abnormal [facility] Ketones Ql (U) Negative NEGATIVE mg/dL [facility] Leukocyte esterase Test strip Ql (U) LARGE Abnormal NEGATIVE [facility] NITRITE URINE Positive Abnormal NEGATIVE [facility] pH (U) 6.5 [pH] 5.0 - 9.0 [facility] Protein (U) [Mass/Vol] 30 mg/dL Abnormal NEG/TRACE NO [facility] SPECIFIC GRAVITY URINE 1.010 1.005 - 1.025 [facility] URINE MICROSCOPIC INDICATED YES [facility] UROBILINOGEN URINE 1.0 EU/dL 0.2 - 1.0 EU/dL [facility] Consultation Noteon 01-08-20 24 Consultation Note [id number] #1.00TIFF Normal [facility] No Panel Informationon 01-03 Divine Carter MA 01/07/2024 4:00 PM M Inj/Asp: bilateral radiocarpal on 01/03/2024 1:55 PM Indications: diagnostic evaluation Details: 25 G needle, ultrasound-guided Medications (Right): 6 mg betamethasone acetate-betamethason e sodium phosphate 6 (3-3) MG/ML Medications (Left): 6 mg betamethasone acetate-betamethason e sodium phosphate 6 (3-3) MG/ML Outcome: tolerated well, no immediate complications Consent was given by the patient. formerly [facility] Echocardiographyon 4 Echocardiography [id number]# 1.00TIFF Normal [facility] Retail - Clinical Noteon Retail - Clinical Note [id number] #1.00TIFF Normal [facility] CBC with Diffon 09-06-2023 Abs. Basophil 0.02 k/uL Normal 0.00-0.20 [facility] Comment on above: Performed By: #### Z FAST, CP, CDP, TSHX, MG #### [facility] [address] [place] [address] Workday Consultant: Ronaldo Reed MD #### LIPR #### [place] [id number] Workday Consultant: Jaxon Irwin MD Abs.Imm.Granulocyte 0.01 k/uL Normal 0.00-0.30 [facility] Comment on above: Performed By: #### Z FAST, CP, CDP, TSHX, MG #### [facility] [address] [place] [phone] Workday Consultant: Ronaldo Reed MD #### LIPR #### [place] [phone] Workday Consultant: Jaxon Irwin MD Abs.Neutrophil (Seg) 5.48 k/uL Normal 2.5-7.0 [facility] Comment on above: Performed By: #### Z FAST, CP, CDP, TSHX, MG #### [facility] [address] [place] [phone] Workday Consultant: Ronaldo Reed MD #### LIPR #### [place] [phone] Workday Consultant: Jaxon Irwin MD Basophils/100 WBC (Bld) 0 % Normal 0-2 [facility] Comment on above: Performed By: #### Z FAST, CP, CDP, TSHX, MG #### [facility] [address] [place] [phone] Workday Consultant: Ronaldo Reed MD #### LIPR #### [place] [phone] Workday Consultant: Jaxon Irwin MD Eosinophils (Bld) [#/Vol] 0.35 10*3/uL Normal 0.00-0.40 [facility] Comment on above: Performed By: #### Z FAST, CP, CDP, TSHX, MG #### [facility] [address] [place] [address] Workday Consultant: Ronaldo Reed MD #### LIPR #### [place] [phone] Workday Consultant: Jaxon Irwin MD Eosinophils/100 WBC (Bld) 4 % Normal 0-5 [facility] Comment on above: Performed By: #### Z FAST, CP, CDP, TSHX, MG #### [facility] [address] [place] [phone] Workday Consultant: Ronaldo Reed MD #### LIPR #### [place] [address] Workday Consultant: Jaxon Irwin MD Erythrocyte distribution width (RBC) [Ratio] 13.3 % Normal 12.1-15.2 [facility] Comment on above: Performed By: #### Z FAST, CP, CDP, TSHX, MG #### [facility] [address] [place] [phone] Workday Consultant: Ronaldo Reed MD #### LIPR #### [address] [phone] Workday Consultant: Jaxon Irwin MD Hematocrit (Bld) [Volume fraction] 40.2 % Normal 36.0-46.0 [facility] Comment on above: Performed By: #### Z FAST, CP, CDP, TSHX, MG #### [facility] [address] [place], [place] [phone] Workday Consultant: Ronaldo Reed MD #### LIPR #### [address] [phone] Workday Consultant: Jaxon Irwin MD Hemoglobin (Bld) [Mass/Vol] 13.5 g/dL Normal 12.0-16.0 [facility] Comment on above: Performed By: #### Z FAST, CP, CDP, TSHX, MG #### [facility] [address] [place], [place] [phone] Workday Consultant: Ronaldo Reed MD #### LIPR #### [address] [phone] Workday Consultant: Jaxon Irwin MD Immature granulocytes/100 WBC (Bld) 0 % Normal 0-5 [facility] Comment on above: Performed By: #### Z FAST, CP, CDP, TSHX, MG #### [facility] [address] [place], [place] [phone] Workday Consultant: Ronaldo Reed MD #### LIPR #### [address] [phone] Workday Consultant: Jxaon Irwin MD Lymphocytes (Bld) [#/Vol] 2.64 10*3/uL Normal 1.00-4.80 [facility] Comment on above: Performed By: #### Z FAST, CP, CDP, TSHX, MG #### [facility] [address] [place], [place] [phone] Workday Consultant: Ronaldo Reed MD #### LIPR #### [address] [phone] Workday Consultant: Jaxon Irwin MD Lymphocytes/100 WBC (Bld) 29 % Normal 15-40 [facility] Comment on above: Performed By: #### Z FAST, CP, CDP, TSHX, MG #### [facility] [address] [place], [place] [phone] Workday Consultant: Ronaldo Reed MD #### LIPR #### [address] [phone] Workday Consultant: Jaxon Irwin MD MCH (RBC) [Entitic mass] 30.8 pg Normal 26.0-34.0 [facility] Comment on above: Performed By: #### [place] FAST, CP, CDP, TSHX, MG #### [facility] [address] [place] [phone] Workday Consultant: Ronaldo Reed MD #### LIPR #### [address] [phone] Workday Consultant: Jaxon Irwin MD MCHC (RBC) [Mass/Vol] 33.6 g/dL Normal 31.0-37.[address] [facility] Comment on above: Performed By: #### [place] FAST, CP, CDP, TSHX, MG #### [facility] [address] [place], [place] [phone] Workday Consultant: Ronaldo Reed MD #### LIPR #### [address] [phone] Workday Consultant: Jaxon Irwin MD MCV (RBC) [Entitic vol] 91.6 fL Normal 80.0-100.0 [facility] Comment on above: Performed By: #### Z FAST, CP, CDP, TSHX, MG #### [facility] [address] [place], [place] [phone] Workday Consultant: Ronaldo Reed MD #### LIPR #### [address] [phone] Workday Consultant: Jaxon Irwin MD Monocytes (Bld) [#/Vol] 0.49 10*3/uL Normal 0.00-1.00 [facility] Comment on above: Performed By: #### Z FAST, CP, CDP, TSHX, MG #### [facility] [address] [place], [place] [phone] Workday Consultant: Ronaldo Reed MD #### LIPR #### [address] [phone] Workday Consultant: Jaxon Irwin MD Monocytes/100 WBC (Bld) 6 % Normal 4-8 [facility] Comment on above: Performed By: #### Z FAST, CP, CDP, TSHX, MG #### [facility] [address] [place] [address] ( Workday Consultant: Ronaldo Reed MD #### LIPR #### [address] [phone] Workday Consultant: Jaxon Irwni MD Neutrophil (Seg) 61 % Normal 47-75 [facility] Comment on above: Performed By: #### Z FAST, CP, CDP, TSHX, MG #### [facility] [address] [place], [place] [phone] Workday Consultant: Ronaldo Reed MD #### LIPR #### [address] [address] Workday Consultant: Jaxon Irwin MD Platelet mean volume (Bld) [Entitic vol] 9.4 fL Normal 6.0-12.0 [facility] Comment on above: Performed By: #### Z FAST, CP, CDP, TSHX, MG #### [facility] [address] [place] [address] Workday Consultant: Ronaldo Reed MD #### LIPR #### [place] [phone] [place] [address] Workday Consultant: Jxaon Irwin MD Platelets (Bld) [#/Vol] 298 10*3/uL Normal 140-450 [facility] Comment on above: Performed By: #### Z FAST, CP, CDP, TSHX, MG #### [facility] [address] [place], [place] [phone] Workday Consultant: Ronaldo Reed MD #### LIPR #### [address] [phone] Workday Consultant: Jaxon Irwin MD RBC (Bld) [#/Vol] 4.39 10*6/uL Normal 4.00-5.20 [facility] Comment on above: Performed By: #### Z FAST, CP, CDP, TSHX, MG #### [facility] [address] [place], [place] [phone] Workday Consultant: Ronaldo Reed MD #### LIPR #### [address] [phone] Workday Consultant: Jaxon Irwin MD WBC (Bld) [#/Vol] 9.0 10*3/uL Normal 3.5-11.0 [facility] Comment on above: Performed By: #### Z FAST, CP, CDP, TSHX, MG #### [facility] [address] [place], [place] 1988290 Workday Consultant: Ronaldo Reed MD #### LIPR #### [address] [phone] Workday Consultant: Jaxon Irwin MD Comp Metabolic Profon 2022 Albumin [Mass/Vol] 3.8 g/dL Normal 3.5-5.2 [facility] Comment on above: Performed By: #### Z FAST, CP, CDP, TSHX, MG #### [facility] [address] [place], [place] [phone] Workday Consultant: Ronaldo Reed MD #### LIPR #### [address] [phone] Workday Consultant: Jaxon Irwin MD Alkaline Phos 120 U/L High 35-104 [facility] Comment on above: Performed By: #### Z FAST, CP, CDP, TSHX, MG #### [facility] [address] [place], [place] [phone] Workday Consultant: Ronaldo Reed MD #### LIPR #### [address] [phone] Workday Consultant: Jaxon Irwin MD ALT [Catalytic activity/Vol] 15 U/L Normal 5-33 [facility] Comment on above: Performed By: #### Z FAST, CP, CDP, TSHX, MG #### [facility] [address] [place], [place] [phone] Workday Consultant: Ronaldo Reed MD #### LIPR #### [address] [phone] Workday Consultant: Jaxon Irwin MD Anion gap [Moles/Vol] 11 mmol/L Normal 9-[address] [facility] Comment on above: Performed By: #### Z FAST, CP, CDP, TSHX, MG #### [facility] [address] [place], [place] [phone] Workday Consultant: Ronaldo Reed MD #### LIPR #### [address] [phone] Workday Consultant: Jaxon Irwin MD AST [Catalytic activity/Vol] 15 U/L Normal <32 [facility] Comment on above: Performed By: #### Z FAST, CP, CDP, TSHX, MG #### [facility] [address] [place], [place] [phone] Workday Consultant: Ronaldo Reed MD #### LIPR #### [facility] [address] [place], [place] [phone] Workday Consultant: Jaxon Irwin MD Bilirubin [Mass/Vol] 0.6 mg/dL Normal 0.3-1.2 [facility] Comment on above: Performed By: #### Z FAST, CP, CDP, TSHX, MG #### [facility] [address] [place] [address] Workday Consultant: Ronaldo Reed MD #### LIPR #### [address] [place] [address] Workday Consultant: Jaxon Irwin MD BUN/CRE Ratio 30 High 9-20 [facility] Comment on above: Performed By: #### Z FAST, CP, CDP, TSHX, MG #### [facility] [address] [place] [address] Workday Consultant: Ronaldo Reed MD #### LIPR #### [address] [phone] Workday Consultant: Jaxon Irwin MD Calcium [Mass/Vol] 10.0 mg/dL Normal 8.6-10.4 [facility] Comment on above: Performed By: #### Z FAST, CP, CDP, TSHX, MG #### [facility] [address] [place] [address] Workday Consultant: Ronaldo Reed MD #### LIPR #### [address] [place], [place] [id number] Workday Consultant: Jaxon Irwin MD Chloride [Moles/Vol] 98 mmol/L Normal 98-107 [facility] Comment on above: Performed By: #### Z FAST, CP, CDP, TSHX, MG #### [facility] [address] [place] [address] Workday Consultant: Ronaldo Reed MD #### LIPR #### [address] [place] [address] Workday Consultant: Jaxon Irwin MD CO2 [Moles/Vol] 28 mmol/L Normal 20-31 [facility] Comment on above: Performed By: #### Z FAST, CP, CDP, TSHX, MG #### [facility] [address] [place] [address] Workday Consultant: Ronaldo Reed MD #### LIPR #### [address] [address] Workday Consultant: Jaxon Irwin MD Creatinine [Mass/Vol] 0.8 mg/dL Normal 0.5-0.[address] [facility] Comment on above: Performed By: #### Z FAST, CP, CDP, TSHX, MG #### [facility] [address] [place] [address] Workday Consultant: Ronaldo Reed MD #### LIPR #### [address] [address] Workday Consultant: Jaxon Irwin MD GFR/1.73 sq M.predicted among non-blacks MDRD (S/P/Bld) [Vol rate/Area] mL/min/{1.73_m2} Normal >60 [facility] Comment on above: Result Comment: These results [...] CP, CDP, TSHX, MG #### [facility] [address] [place] [address] Workday Consultant: Ronaldo Reed MD #### LIPR #### [address] [place], [place] [phone] Workday Consultant: Jaxon Irwin MD Glucose [Mass/Vol] 126 mg/dL High 70-99 [facility] Comment on above: Performed By: #### Z FAST, CP, CDP, TSHX, MG #### [facility] [address] [place], [place] [phone] Workday Consultant: Ronaldo Reed MD #### LIPR #### [address] [phone] Workday Consultant: Jaxon Irwin MD Potassium [Moles/Vol] 3.9 mmol/L Normal 3.7-5.[address] [facility] Comment on above: Performed By: #### Z FAST, CP, CDP, TSHX, MG #### [facility] [address] [place], [place] [phone] Workday Consultant: Ronaldo Reed MD #### LIPR #### [address] [phone] Workday Consultant: Jaxon Irwin MD Protein [Mass/Vol] 7.3 g/dL Normal 6.4-8.3 [facility] Comment on above: Performed By: #### Z FAST, CP, CDP, TSHX, MG #### [facility] [address] [place], [place] [phone] Workday Consultant: Ronaldo Reed MD #### LIPR #### [address] [phone] Workday Consultant: Jaxon Irwin MD Sodium [Moles/Vol] 137 mmol/L Normal 135-144 [facility] Comment on above: Performed By: #### Z FAST, CP, CDP, TSHX, MG #### [facility] [address] [place], [place] [phone] Workday Consultant: Ronaldo Reed MD #### LIPR #### [address] [place], [place] [phone] Workday Consultant: Jaxon Irwin MD Urea nitrogen [Mass/Vol] 24 mg/dL High 8- [facility] Comment on above: Performed By: #### Z FAST, CP, CDP, TSHX, MG #### [facility] [address] [place], [place] [phone] Workday Consultant: Ronaldo Reed MD #### LIPR #### [address] [phone] Workday Consultant: Jaxon Irwin MD Lipid Profileon 09-06-2023 Cholesterol [Mass/Vol] 166 mg/dL Normal <200 [facility] Comment on above: Result Comment: Cholesterol Guidelines: <200 Desirable 200-240 Borderline >240 Undesirable Performed By: #### Z FAST, CP, CDP, TSHX, MG #### [facility] [address] [place], [place] [phone] Workday Consultant: Ronaldo Reed MD #### LIPR #### [address] [phone] Workday Consultant: Jaxon Irwin MD Cholesterol in HDL [Mass/Vol] 54 mg/dL Normal >40 [facility] Comment on above: Result Comment: HDL Guidelines: <40 Undesirable 40-59 Borderline >59 Desirable Performed By: #### Z FAST, CP, CDP, TSHX, MG #### [facility] [address] [place], [place] [phone] Workday Consultant: Ronaldo Reed MD #### LIPR #### [address] [phone] Workday Consultant: Jaxon Irwin MD Cholesterol in LDL [Mass/Vol] 90 mg/dL Normal 0-130 [facility] Comment on above: Result Comment: LDL Guidelines: <100 Desirable 100-129 Near to/above Desirable 130-159 Borderline >159 Undesirable Direct (measured) LDL and calculated LDL are not interchangeable tests. Performed By: #### Z FAST, CP, CDP, TSHX, MG #### [facility] [address] [place], [place] [phone] Workday Consultant: Ronaldo Reed MD #### LIPR #### [address] [place], [place] [phone] Workday Consultant: Jaxon Irwin MD Cholesterol.total/Chol esterol in HDL [Mass ratio] 3.1 {ratio} Normal <5 [facility] Comment on above: Performed By: #### Z FAST, CP, CDP, TSHX, MG #### [facility] [address] [place], [place] [phone] Workday Consultant: Ronaldo Reed MD #### LIPR #### [address] [place], [place] [phone] Workday Consultant: Jaxon Irwin MD Triglyceride [Mass/Vol] 108 mg/dL Normal <150 [facility] Comment on above: Result Comment: Triglyceride Guidelines: <150 Desirable 150-199 Borderline 200-499 High >499 Very high Based on AHA Guidelines for fasting triglyceride, August 2012. Performed By: #### Z FAST, CP, CDP, TSHX, MG #### [facility] [address] [place], [place] [phone] Workday Consultant: Ronaldo Reed MD #### LIPR #### [address] [phone] Workday Consultant: Jaxon Irwin MD Magnesiumon 09-06-2023 Magnesium [Mass/Vol] 1.9 mg/dL Normal 1.6-2.6 [facility] Comment on above: Performed By: #### Z FAST, CP, CDP, TSHX, MG #### [facility] [address] [place], [place] [phone] Workday Consultant: Ronaldo Reed MD #### LIPR #### [address] [phone] Workday Consultant: Jaxon Irwin MD Patient fasting?on 3 Patient fasting? YES Normal [facility] Comment on above: Performed By: #### Z FAST, CP, CDP, TSHX, MG #### [facility] [address] [place], [place] [phone] Workday Consultant: Ronaldo Reed MD #### LIPR #### [address] [phone] Workday Consultant: Jaxon Irwin MD RAD - MISCon 09-06-2023 RAD - MISC [id number] #[id number] Normal [facility] TSH w/reflex to FT4on 2022 Thyroid Stim. Horm. 2.32 uIU/mL Normal 0.30-5.00 [facility] Comment on above: Performed By: #### Z FAST, CP, CDP, TSHX, MG #### [facility] [address] [place], [place] [phone] Workday Consultant: Ronaldo Reed MD #### LIPR #### [address] [phone] Workday Consultant: Jaxon Irwin MD XR CHEST (2 VW)on [...] Godoy Jr., MD 09/06/23 Final result Normal [facility] POTASSIUMon 03-05-2023 Potassium [Moles/Vol] 4.0 mmol/L Normal 3.5-5.1 [facility] Comment on above: Performed By: #### K #### [facility] [address] [place] [address] Dr. Lacey Corado BNPon 02-28-2023 Natriuretic peptide B (Bld) [Mass/Vol] 60.0 pg/mL Normal <=1,800.0 [facility] Comment on above: Performed By: #### B MP, BNP #### [facility] [address] [place] [address] Dr. Lacey Corado PROF CHEM 8 (BAS METB)on Anion gap [Moles/Vol] 10.8 mmol/L Normal [facility] Comment on above: Performed By: #### B MP, BNP #### [facility] [address] [place] [address] Dr. Lacey Corado Calcium [Mass/Vol] 9.0 mg/dL Normal 8.5-10.1 [facility] Comment on above: Performed By: #### B MP, BNP #### [facility] [address] [place] [address] Dr. Lacey Corado Chloride [Moles/Vol] 103 mmol/L Normal 98-107 [facility] Comment on above: Performed By: #### B MP, BNP #### [facility] [address] [place] [address] Dr. Lacey Corado CO2 [Moles/Vol] 28.5 mmol/L Normal 21.0-32.0 [facility] Comment on above: Performed By: #### B MP, BNP #### [facility] [address] [place] [address] Dr. Lacey Corado Creatinine [Mass/Vol] 0.81 mg/dL Normal 0.55-1.02 [facility] Comment on above: Performed By: #### B MP, BNP #### [facility] [address] [place] [address] Dr. Lacey Corado EGFR-AF GREENLANDIC >60 Normal >=60 [facility] Comment on above: Performed By: #### B MP, BNP #### [facility] [address] [address] [address] Lacey Corado EGFR-NON AF GREENLANDIC >60 Normal >=60 [facility] Comment on above: Performed By: #### B MP, BNP #### [facility] [address] [address] [address] Lacey Corado Glucose [Mass/Vol] 111 mg/dL Critically high 74-106 [facility] Comment on above: Performed By: #### B MP, BNP #### [facility] [address] [address] [address] Lacey Corado Potassium [Moles/Vol] 3.3 mmol/L Critically low 3.5-5.1 [facility] Comment on above: Performed By: #### B MP, BNP #### [facility] [address] [place] [address] Dr. Lacey Corado Sodium [Moles/Vol] 139 mmol/L Normal 136-145 [facility] Comment on above: Performed By: #### B MP, BNP #### [facility] [address] [address] [address] Lacey Corado Urea nitrogen [Mass/Vol] 14.0 mg/dL Normal 7.0-18.0 [facility] Comment on above: Performed By: #### B MP, BNP #### [facility] [address] [place] [address] Dr. Lacey Corado Urea nitrogen/Creatinine [Mass ratio] 17.3 mg/mg Normal [facility] Comment on above: Performed By: #### B MP, BNP #### [facility] [address] [place] [address] Dr. Lacey Corado PROF CHEM 8 (BAS METB)on Anion gap [Moles/Vol] 14.1 mmol/L Normal [facility] Comment on above: Performed By: #### B MP ####[facility] [address] [address]. Lacey Corado Calcium [Mass/Vol] 9.2 mg/dL Normal 8.5-10.1 [facility] Comment on above: Performed By: #### B MP ####[facility] [phone]. Maria Fernandagaurav Corado Chloride [Moles/Vol] 103 mmol/L Normal 98-107 [facility] Comment on above: Performed By: #### B MP ####[facility] [address] [address]Dr. Lacey Corado CO2 [Moles/Vol] 28.4 mmol/L Normal 21.0-32.0 [facility] Comment on above: Performed By: #### B MP ####[facility] [address] [address]Dr. Lacey Corado Creatinine [Mass/Vol] 0.71 mg/dL Normal 0.55-1.02 [facility] Comment on above: Performed By: #### B MP ####[facility] [address] [address]Dr. Lacey Corado EGFR-AF GREENLANDIC >60 Normal >=60 [facility] Comment on above: Performed By: #### B MP ####[facility] [address] [address]Dr. Maria Fernandagaurav Mak EGFR-NON AF GREENLANDIC >60 Normal >=60 [facility] Comment on above: Performed By: #### B MP ####[facility] [address] [address]Dr. Lacey Corado Glucose [Mass/Vol] 139 mg/dL Critically high 74-106 [facility] Comment on above: Performed By: #### B MP ####[facility] [address] [address]Dr. Lacey Corado Potassium [Moles/Vol] 3.5 mmol/L Normal 3.5-5.1 [facility] Comment on above: Performed By: #### B MP ####[facility] [address] [address]Dr. Lacey Corado Sodium [Moles/Vol] 142 mmol/L Normal 136-145 [facility] Comment on above: Performed By: #### B MP ####[facility] [address] [place], [place] [address]Dr. Lacey Mak Urea nitrogen [Mass/Vol] 14.0 mg/dL Normal 7.0-18.0 [facility] Comment on above: Performed By: #### B MP ####[facility] [address] [place], [place] [address]Dr. Lacey Mak Urea nitrogen/Creatinine [Mass ratio] 19.7 mg/mg Normal [facility] Comment on above: Performed By: #### B MP ####[facility] [address] [place], [place] [address]Dr. Lacey Mak CBC AUTO DIFFon 01-26-2023 BASO # 0.1 103/ul Normal 0.0-0.1 [facility] Comment on above: Performed By: #### C BC ####[facility] [address] [place], [place] [address]Dr. Lacey Corado Basophils/100 WBC (Bld) 0.5 % Normal 0.2-2.0 [facility] Comment on above: Performed By: #### C BC ####[facility] [address] [place], [place] [address]Dr. Lacey Mak EO # 0.4 103/ul Normal 0.0-0.7 [facility] Comment on above: Performed By: #### C BC ####[facility] [address] [place], [place] [address]Dr. Maria Fernandagaurav Corado Eosinophils/100 WBC (Bld) 3.6 % Normal 0.9-7.0 [facility] Comment on above: Performed By: #### C BC ####[facility] [address] [place], [place] [address]Dr. Lacey Mak Erythrocyte distribution width (RBC) [Ratio] 13.6 % Normal 11.0-15.0 [facility] Comment on above: Performed By: #### C BC ####[facility] [address] [place], [place] [address]Dr. Lacey Corado Hematocrit (Bld) [Volume fraction] 37.9 % Normal 36.0-48.0 [facility] Comment on above: Performed By: #### C BC ####[facility] [phone]. Lacey Corado Hemoglobin (Bld) [Mass/Vol] 12.4 g/dL Normal 12.0-16.0 [facility] Comment on above: Performed By: #### C BC ####[facility] [address] [address]Dr. Lacey Corado IG # 0.04 10e3/ul Critically high 0.00-0.03 [facility] Comment on above: Performed By: #### C BC ####[facility] [address] [address]Dr. Lacey Corado IG % 0.4 % Normal 0.0-0.5 [facility] Comment on above: Performed By: #### C BC ####[facility] [address] [address]Dr. Lacey Corado LYMPH # 1.9 103/ul Normal 1.2-3.8 [facility] Comment on above: Performed By: #### C BC ####[facility] [address] [address]Dr. Lacey Corado Lymphocytes/100 WBC (Bld) 18.6 % Critically low 20.5-60.0 [facility] Comment on above: Performed By: #### C BC ####[facility] [address] [address]Dr. Lacey Corado MANUAL DIFF REQ NO Normal [facility] Comment on above: Performed By: #### C BC ####[facility] [address] [address]Dr. Lacey Corado MCH (RBC) [Entitic mass] 30.5 pg Normal 26.7-34.0 [facility] Comment on above: Performed By: #### C BC ####[facility] [address] [address]Dr. Lacey Corado MCHC (RBC) [Mass/Vol] 32.7 g/dL Normal 29.9-35.2 [facility] Comment on above: Performed By: #### C BC ####[facility] [address] [address]Dr. Lacey Corado MCV (RBC) [Entitic vol] 93.3 fL Normal 81.0-99.0 [facility] Comment on above: Performed By: #### C BC ####[facility] [address] [address]Dr. Lacey Corado MONO # 0.8 103/ul Normal 0.3-0.8 The [facility] Comment on above: Performed By: #### C BC ####[facility] [address] [address]Dr. Lacey Corado Monocytes/100 WBC (Bld) 7.8 % Normal 1.7-12.0 [facility] Comment on above: Performed By: #### C BC ####[facility] [address] [place], [place] [address]Dr. Lacey Corado NEUT # 7.0 103/ul Critically high 1.4-6.[address] [facility] Comment on above: Performed By: #### C BC ####[facility] [address] [place], [place] [address]Dr. Lacey Corado Neutrophils/100 WBC (Bld) 69.1 % Normal 43.0-75.0 [facility] Comment on above: Performed By: #### C BC ####[facility] [address] [address]Dr. Lacey Corado Platelet mean volume (Bld) [Entitic vol] 9.4 fL Critically low 9.5-13.5 The [facility] Comment on above: Performed By: #### C BC ####[facility] [address] [phone]. Lacey Mak PLT 355 103/ul Normal 150-450 [facility] Comment on above: Performed By: #### C BC ####[facility] [address] [id number]. Maria Fernandagaurav Mak RBC 4.06 106/ul Critically low 4.20-5.[address] [facility] Comment on above: Performed By: #### C BC ####[facility] [address] [address]Dr. Lacey Corado WBC 10.1 103/ul Normal 4.0-11.0 [facility] Comment on above: Performed By: #### C BC ####[facility] [address] [address] Lacey Corado CT HEAD WO CONon 01-26-2023 [...] Reyes TRACY Date: 2023-01-26 01:23 Normal [facility] PROF 14(COMP METB)on 023 Albumin [Mass/Vol] 3.3 g/dL Critically low 3.4-5.0 Th e [facility] Comment on above: Performed By: #### C MP #### [facility] [address] [place] [address] Dr. Lacey Corado Albumin/Globulin [Mass ratio] 0.8 {ratio} Normal [facility] Comment on above: Performed By: #### C MP #### [facility] [address] [address] [address] Lacey Corado ALP [Catalytic activity/Vol] 134 U/L Critically high 46-116 [facility] Comment on above: Performed By: #### C MP #### [facility] [address] [place] [address] Dr. Lacey Corado ALT [Catalytic activity/Vol] 21 U/L Normal 14-59 [facility] Comment on above: Performed By: #### C MP #### [facility] [address] [address] [address] Lacey Corado Anion gap [Moles/Vol] 15.5 mmol/L Normal [facility] Comment on above: Performed By: #### C MP #### [facility] [address] [address] [address] Lacey Corado AST [Catalytic activity/Vol] 19 U/L Normal 15-37 [facility] Comment on above: Performed By: #### C MP #### [facility] [address] [address] [address] Lacey Corado Bilirubin [Mass/Vol] 0.5 mg/dL Normal 0.2-1.0 [facility] Comment on above: Performed By: #### C MP #### [facility] [address] [address] [address] Lacey Corado Calcium [Mass/Vol] 9.1 mg/dL Normal 8.5-10.1 [facility] Comment on above: Performed By: #### C MP #### [facility] [address] [place] [address] Dr. Lacey Corado Chloride [Moles/Vol] 106 mmol/L Normal 98-107 [facility] Comment on above: Performed By: #### C MP #### [facility] [address] [address] [address] Lacey Corado CO2 [Moles/Vol] 26.2 mmol/L Normal 21.0-32.0 [facility] Comment on above: Performed By: #### C MP #### [facility] [address] [address] [address] Lacey Corado Creatinine [Mass/Vol] 0.95 mg/dL Normal 0.55-1.02 [facility] Comment on above: Performed By: #### C MP #### [facility] [address] [address] [address] Lacey Corado EGFR-AF GREENLANDIC >60 Normal >=60 [facility] Comment on above: Performed By: #### C MP #### [facility] [address] [address] [address] Lacey Corado EGFR-NON AF GREENLANDIC 56 mL/min/1.73m2 Critically low >=60 [facility] Comment on above: Performed By: #### C MP #### [facility] [address] [place] [address] Dr. Lacey Corado Globulin (S) [Mass/Vol] 4.0 g/dL Normal [facility] Comment on above: Performed By: #### C MP #### [facility] [address] [address] [address] Lacey Corado Glucose [Mass/Vol] 135 mg/dL Critically high 74-106 [facility] Comment on above: Performed By: #### C MP #### [facility] [address] [place] [address] Dr. Lacey Corado Potassium [Moles/Vol] 3.7 mmol/L Normal 3.5-5.1 [facility] Comment on above: Performed By: #### C MP #### [facility] [address] [place] [address] Dr. Lacey Corado Protein [Mass/Vol] 7.3 g/dL Normal 6.4-8.2 [facility] Comment on above: Performed By: #### C MP #### [facility] [address] [place] [address] Dr. Lacey Corado Sodium [Moles/Vol] 144 mmol/L Normal 136-145 [facility] Comment on above: Performed By: #### C MP #### [facility] [address] [place] [address] Dr. Lacey Corado Urea nitrogen [Mass/Vol] 17.0 mg/dL Normal 7.0-18.0 [facility] Comment on above: Performed By: #### C MP #### [facility] [address] [place] [address] Dr. Lacey Corado Urea nitrogen/Creatinine [Mass ratio] 17.9 mg/mg Normal [facility] Comment on above: Performed By: #### C MP #### [facility] [address] [place] [address] Dr. Lacey Corado PROTIMEon 01-26-2023 INR Coag (PPP) [Relative time] 1.03 {INR} Normal [facility] Comment on above: Performed By: #### P TT, PT #### [facility] [address] [place] [address] Dr. Lacey Corado INR GUIDELINES SEE BELOW Normal [facility] Comment on above: Result Comment: JAD RED INR: 2.0 - 3.0 CONDITIONS NOT LISTED BELOW 2.5 - 3.5 FOR PROSTHETIC HEART VALVE REPLACEMENT 2.5 - 3.5 RECURRENT THROMBOSIS Performed By: #### P TT, PT #### [facility] [address] [address] [address] Lacey Corado PT Coag (PPP) [Time] 10.9 s Normal 9.0-11.6 [facility] Comment on above: Performed By: #### P TT, PT #### [facility] [address] [place] [address] Dr. Lacey Corado PTTon 01-26-2023 aPTT Coag (Bld) [Time] 22.2 s Critically low 22.3-36.2 [facility] Comment on above: Performed By: #### P TT, PT #### [facility] [address] [place] [address] Dr. Lacey Corado XR FEMUR RTon 01-26-2023 [...] right femoral head is excluded from the [id number]. There are advanced degenerative changes of the [...] Reyes TRACY Date: 2023-01-26 01:27 Normal [facility] EKG Rhythm Stripon 3 [facility] EKG [facility]hythm Stripon 3 [facility] EKG [facility]hythm Stripon 3 [facility] with 1 degree AV block [facility] with 1st degree AV block [facility] EKG [facility]hythm Stripon 3 [facility] Engin [facility] R[facility]GE LAB [facility]in [facility] [employer] Basic Metabolic Panelon 11-27 Anion gap [Moles/Vol] 10 mmol/L 9 - 17 mmol/L [facility] [employer] Calcium [Mass/Vol] 9.2 mg/dL 8.6 - 10. 4 mg/dL [facility] Chloride [Moles/Vol] 101 mmol/L 98 - 10 7 mmol/L [facility] [employer] CO2 [Moles/Vol] 26 mmol/L 20 - 31 mmol/L [facility] Creatinine [Mass/Vol] 0.9 mg/dL 0.50 - 0.90 mg/dL [facility] GFR/1.73 sq M.predicted MDRD (S/P/Bld) [Vol rate/Area] - PINF [facility] Comment on above: These results are [...] 100 mg/dL High 70 - 99 mg/dL [facility] Interpretation and review of laboratory results Abnormal [facility] Potassium [Moles/Vol] 4.3 mmol/L 3.7 - 5.3 mmol/L [facility] Sodium [Moles/Vol] 137 mmol/L 135 - 144 mmol/L [facility] Urea nitrogen (BldV) [Mass/Vol] 37 mg/dL High 8 - 23 mg/dL [facility] Urea nitrogen/Creatinine (Bld) [Mass ratio] 41 High 9 - 20 [facility] Basic Metabolic Profon 12-22 Anion gap [Moles/Vol] 10 mmol/L Normal 9-[address] [facility] Comment on above: Performed By: #### U AX #### [facility] [address] [place] [address] Workday Consultant: Ronaldo Reed MD BUN/CRE Ratio 41 High 9-20 [facility] Comment on above: Performed By: #### U AX #### [facility] [address] [place] [address] Workday Consultant: Ronaldo Reed MD Calcium [Mass/Vol] 9.2 mg/dL Normal 8.6-10.4 [facility] Comment on above: Performed By: #### U AX #### [facility] [address] [place] [address] Workday Consultant: Ronaldo Reed MD Chloride [Moles/Vol] 101 mmol/L Normal 98-107 [facility] Comment on above: Performed By: #### U AX #### [facility] [address] [place] [address] Workday Consultant: Ronaldo Reed MD CO2 [Moles/Vol] 26 mmol/L Normal 20-31 [facility] Comment on above: Performed By: #### U AX #### [facility] [address] [place] [address] Workday Consultant: Ronaldo Reed MD Creatinine [Mass/Vol] 0.90 mg/dL Normal 0.50-0.[address] [facility] Comment on above: Performed By: #### U AX #### [facility] [address] [place] [address] Workday Consultant: Ronaldo Reed MD GFR/1.73 sq M.predicted among non-blacks MDRD (S/P/Bld) [Vol rate/Area] mL/min/{1.73_m2} Normal >60 [facility] Comment on above: Result Comment: These results [...] By: #### U AX #### [facility] [address] [place] [address] Workday Consultant: Ronaldo Reed MD Glucose [Mass/Vol] 100 mg/dL High 70-99 [facility] Comment on above: Performed By: #### U AX #### [facility] [address] [place] [address] Workday Consultant: Ronaldo Reed MD Potassium [Moles/Vol] 4.3 mmol/L Normal 3.7-5.[address] [facility] Comment on above: Performed By: #### U AX #### [facility] [address] [place] [address] Workday Consultant: Ronaldo Reed MD Sodium [Moles/Vol] 137 mmol/L Normal 135-144 [facility] Comment on above: Performed By: #### U AX #### [facility] [address] [place], [place] [phone] Workday Consultant: Ronaldo Reed MD Urea nitrogen [Mass/Vol] 37 mg/dL High 8-23 [facility] Comment on above: Performed By: #### U AX #### [facility] [address] [place] [address] Workday Consultant: Ronaldo Reed MD EKG 12 Leadon 12-22-2022 Atrial Rate 75 BPM [employer] Phone: P Ransom 26 degrees [employer] Phone: P-R Interval 222 ms [employer] Phone: Q-T Interval 376 ms [employer] Phone: QRS Duration 92 ms [employer] Phone: QTc Calculation (Bazett) 419 ms [employer] Phone: R Ransom 12 degrees [employer] Phone: T Ransom 14 degrees [employer] Phone: Ventricular Rate 75 BPM [employer] Phone: Sinus rhythm with 1st degree A-V block Possible Anterior infarct , age undetermined Abnormal ECG [facility] Андрей Rodriguez MD - 12/22/2022 Sinus rhythm with 1st degree A-V block Possible Anterior infarct , age undetermined Abnormal ECG [facility] Work Phone: [facility] Work Phone: EKG Rhythm Stripon 3 [facility] absent T wave? prolonged QT? [facility] absent T wave? prolonged QT? [facility] Troponinon 12-22-2022 Troponin, High Sens 33 ng/L High 0-14 [facility] Comment on above: Result Comment: High Sensitivity Troponin values cannot be compared with other Troponin methodologies. Performed By: #### U AX #### [facility] [address] [place] [address] Workday Consultant: Ronaldo Reed MD Basic Metabolic Panelon 11-27 Anion gap [Moles/Vol] 12 mmol/L 9 - 17 mmol/L [facility] Calcium [Mass/Vol] 9.6 mg/dL 8.6 - 10. 4 mg/dL [facility] Chloride [Moles/Vol] 100 mmol/L 98 - 10 7 mmol/L [facility] CO2 [Moles/Vol] 22 mmol/L 20 - 31 mmol/L [facility] Creatinine [Mass/Vol] 1.26 mg/dL High 0.50 - 0.90 mg/dL [facility] GFR/1.73 sq M.predicted MDRD (S/P/Bld) [Vol rate/Area] 42 mL/min/{1.73_m2} Low - PINF [facility] Comment on above: These results are [...] 119 mg/dL High 70 - 99 mg/dL [facility] Interpretation and review of laboratory results Abnormal [facility] Potassium [Moles/Vol] 5.2 mmol/L 3.7 - 5.3 mmol/L [facility] Sodium [Moles/Vol] 134 mmol/L Low 135 - 144 mmol/L [facility] Urea nitrogen (BldV) [Mass/Vol] 38 mg/dL High 8 - 23 mg/dL [facility] Urea nitrogen/Creatinine (Bld) [Mass ratio] 30 High 9 - 20 [facility] Basic Metabolic Profon 12-21 Anion gap [Moles/Vol] 12 mmol/L Normal 9-[address] [facility] Comment on above: Performed By: #### U AX #### [facility] [address] [place], [place] [id number] Workday Consultant: Ronaldo Reed MD BUN/CRE Ratio 30 High 9-20 [facility] Comment on above: Performed By: #### U AX #### [facility] [address] [place], [place] [phone] Workday Consultant: Ronaldo Reed MD Calcium [Mass/Vol] 9.6 mg/dL Normal 8.6-10.4 [facility] Comment on above: Performed By: #### U AX #### [facility] [address] [place], [place] [phone] Workday Consultant: Ronaldo Reed MD Chloride [Moles/Vol] 100 mmol/L Normal 98-107 [facility] Comment on above: Performed By: #### U AX #### [facility] [address] [place], [place] [phone] Workday Consultant: Ronaldo Reed MD CO2 [Moles/Vol] 22 mmol/L Normal 20-31 [facility] Comment on above: Performed By: #### U AX #### [facility] [address] [place], [place] [phone] Workday Consultant: Ronaldo Reed MD Creatinine [Mass/Vol] 1.26 mg/dL High 0.50-0.[address] [facility] Comment on above: Performed By: #### U AX #### [facility] [address] [place] [address] Workday Consultant: Ronaldo Reed MD GFR/1.73 sq M.predicted among non-blacks MDRD (S/P/Bld) [Vol rate/Area] 42 mL/min/{1.73_m2} Low >60 [facility] Comment on above: Result Comment: [...] By: #### U AX #### [facility] [address] [place] [address] Workday Consultant: Ronaldo Reed MD Glucose [Mass/Vol] 119 mg/dL High 70-99 [facility] Comment on above: Performed By: #### U AX #### [facility] [address] [place] [address] Workday Consultant: Ronaldo Reed MD Potassium [Moles/Vol] 5.2 mmol/L Normal 3.7-5.[address] [facility] Comment on above: Performed By: #### U AX #### [facility] [address] [place] [address] Workday Consultant: Ronaldo Reed MD Sodium [Moles/Vol] 134 mmol/L Low 135-144 [facility] Comment on above: Performed By: #### U AX #### [facility] [address] [place] [address] Workday Consultant: Ronaldo Reed MD Urea nitrogen [Mass/Vol] 38 mg/dL High 8-23 [facility] Comment on above: Performed By: #### U AX #### [facility] [address] [place] [address] Workday Consultant: Ronaldo Reed MD CBC with Auto Differentialon 12-21-2022 Absolute Eos # 0.30 [facility] Absolute Lymph # 2.50 [facility] Absolute Kershaw # 0.60 [facility] Basophils (Bld) [#/Vol] 0.00 10*3/uL [facility] Basophils/100 WBC (Bld) 0 % 0 - 2 % [facility] Differential Type YES [facility] Eosinophils/100 WBC (Bld) 2 % 0 - 5 % [facility] Hematocrit (Bld) [Volume fraction] 34.5 % Low 36 - 46 % [facility] Hemoglobin (Bld) [Mass/Vol] 11.4 g/dL Low 12.0 - 16.0 g/dL [facility] Interpretation and review of laboratory results Abnormal [facility] Lymphocytes/100 WBC (Bld) 23 % 15 - 40 % [facility] MCH (RBC) [Entitic mass] 31.5 pg 26 - 34 pg [facility] MCHC (RBC) [Mass/Vol] 33.0 g/dL 31 - 37 g/dL [facility] MCV (RBC) [Entitic vol] 95.2 fL 80 - 100 fL [facility] Monocytes/100 WBC (Bld) 5 % 4 - 8 % [facility] Platelet distribution width (Bld) [Ratio] 14.1 % 12.1 - 15.2 % [facility] Platelets (Bld) [#/Vol] 428 10*3/uL [facility] RBC (Bld) [#/Vol] 3.63 10*6/uL Low 4.0 - 5.2 m/uL [facility] Segmented neutrophils/100 WBC (Bld) 70 % 47 - 75 % [facility] Segs Absolute 7.50 High [facility] WBC (Bld) [#/Vol] 10.9 10*3/uL [facility] CBC with Diffon 12-21-2022 Abs. Basophil 0.00 k/uL Normal 0.0-0.2 [facility] Comment on above: Performed By: #### C DP, TROPI #### [facility] [address] [place], [place] [phone] Workday Consultant: Ronaldo Reed MD Abs.Neutrophil (Seg) 7.50 k/uL High 2.5-7.0 [facility] Comment on above: Performed By: #### C DP, TROPI #### [facility] [address] [place], [place] [phone] Workday Consultant: Ronaldo Reed MD Auto Diff Performed YES Normal [facility] Comment on above: Performed By: #### C DP, TROPI #### [facility] [address] [place] [address] Workday Consultant: Ronaldo Reed MD Basophils/100 WBC (Bld) 0 % Normal 0-2 [facility] Comment on above: Performed By: #### C DP, TROPI #### [facility] [address] [place] [address] Workday Consultant: Ronaldo Reed MD Eosinophils (Bld) [#/Vol] 0.30 10*3/uL Normal 0.0-0.4 [facility] Comment on above: Performed By: #### C DP, TROPI #### [facility] [address] [place], [place] [phone] Workday Consultant: Ronaldo Reed MD Eosinophils/100 WBC (Bld) 2 % Normal 0-5 [facility] Comment on above: Performed By: #### C DP, TROPI #### [facility] [address] [place] [address] Workday Consultant: Ronaldo Reed MD Erythrocyte distribution width (RBC) [Ratio] 14.1 % Normal 12.1-15.2 [facility] Comment on above: Performed By: #### C DP, TROPI #### [facility] [address] [place] [address] Workday Consultant: Ronaldo Reed MD Hematocrit (Bld) [Volume fraction] 34.5 % Low 36-46 [facility] Comment on above: Performed By: #### C DP, TROPI #### [facility] [address] [place] [phone] Workday Consultant: Ronaldo eRed MD Hemoglobin (Bld) [Mass/Vol] 11.4 g/dL Low 12.0-16.0 [facility] Comment on above: Performed By: #### C DP, TROPI #### [facility] [address] [place] [phone] Workday Consultant: Ronaldo Reed MD Lymphocytes (Bld) [#/Vol] 2.50 10*3/uL Normal 1.0-4.8 [facility] Comment on above: Performed By: #### C DP, TROPI #### [facility] [address] [place] [address] Workday Consultant: Ronaldo Reed MD Lymphocytes/100 WBC (Bld) 23 % Normal 15-40 [facility] Comment on above: Performed By: #### C DP, TROPI #### [facility] [address] [place] [phone] Workday Consultant: Ronaldo Reed MD MCH (RBC) [Entitic mass] 31.5 pg Normal 26-34 [facility] Comment on above: Performed By: #### C DP, TROPI #### [facility] [address] [place] [address] Workday Consultant: Ronaldo Reed MD MCHC (RBC) [Mass/Vol] 33.0 g/dL Normal 31-[address] [facility] Comment on above: Performed By: #### C DP, TROPI #### [facility] [address] [place] [address] Workday Consultant: Ronaldo Reed MD MCV (RBC) [Entitic vol] 95.2 fL Normal 80-100 [facility] Comment on above: Performed By: #### C DP, TROPI #### [facility] [address] [place] [address] Workday Consultant: Ronaldo Reed MD Monocytes (Bld) [#/Vol] 0.60 10*3/uL Normal 0.0-1.0 [facility] Comment on above: Performed By: #### C DP, TROPI #### [facility] [address] [place] [address] Workday Consultant: Ronaldo Reed MD Monocytes/100 WBC (Bld) 5 % Normal 4-8 [facility] Comment on above: Performed By: #### C DP, TROPI #### [facility] [address] [place] [address] Workday Consultant: Ronaldo Reed MD Neutrophil (Seg) 70 % Normal 47-75 [facility] Comment on above: Performed By: #### C DP, TROPI #### [facility] [address] [place] [address] Workday Consultant: Ronaldo Reed MD Platelets (Bld) [#/Vol] 428 10*3/uL Normal 140-450 [facility] Comment on above: Performed By: #### C DP, TROPI #### [facility] [address] [place] [address] Workday Consultant: Ronaldo Reed MD RBC (Bld) [#/Vol] 3.63 10*6/uL Low 4.0-5.2 [facility] Comment on above: Performed By: #### C DP, TROPI #### [facility] [address] [place] [address] Workday Consultant: Ronaldo Reed MD WBC (Bld) [#/Vol] 10.9 10*3/uL Normal 3.5-11.0 [facility] Comment on above: Performed By: #### C DP, TROPI #### [facility] [address] [place], [place] [phone] Workday Consultant: Ronaldo Reed MD EKG Rhythm Stripon [facility] AM [facility] Troponinon 12-21-2022 Interpretation and review of laboratory results Abnormal [facility] Troponin, High Sensitivity 33 ng/L High 0 - 14 ng/L [facility] Comment on above: High Sensitivity Tro ponin values cannot be compared with other Troponin methodologies. [facility] Troponin, High Sens 34 ng/L High 0-14 [facility] Comment on above: Result Comment: High Sensitivity Troponin values cannot be compared with other Troponin methodologies. Performed By: #### C DP, TROPI #### [facility] [address] [place], [place] [phone] Workday Consultant: Ronaldo Reed MD Interpretation and review of laboratory results Abnormal [facility] Troponin, High Sensitivity 34 ng/L High 0 - 14 ng/L [facility] Comment on above: High Sensitivity Tro ponin values cannot be compared with other Troponin methodologies. [facility] Troponin, High Sens 48 ng/L High 0-14 [facility] Comment on above: Result Comment: High Sensitivity Troponin values cannot be compared with other Troponin methodologies. Performed By: #### U AX #### [facility] [address] [place], [place] [phone] Workday Consultant: Ronaldo Reed MD Interpretation and review of laboratory results Abnormal [facility] Troponin, High Sensitivity 48 ng/L High 0 - 14 ng/L [facility] Comment on above: High Sensitivity Tro ponin values cannot be compared with other Troponin methodologies. [facility] UA w/Reflex Cultureon 2022 Bilirubin, SemiQt,Ur Negative Normal NEG [facility] Comment on above: Performed By: #### U AX #### [facility] [address] [place], [place] [phone] Workday Consultant: Ronaldo Reed MD Blood, Urine Negative Normal NEG [facility] Comment on above: Performed By: #### U AX #### [facility] [address] [place], [place] [phone] Workday Consultant: Ronaldo Reed MD Clarity (U) Clear Normal CLEAR [facility] Comment on above: Performed By: #### U AX #### [facility] [address] [place] [address] Workday Consultant: Ronaldo Reed MD Color (U) Yellow Normal YEL [facility] Comment on above: Performed By: #### U AX #### [facility] [address] [place] [address] Workday Consultant: Ronaldo Reed MD Comment Normal [facility] Comment on above: Performed By: #### U AX #### [facility] [address] [place] [address] Workday Consultant: Ronaldo Reed MD Glucose Ql (U) Negative Normal NEG [facility] Comment on above: Performed By: #### U AX #### [facility] [address] [place] [address] Workday Consultant: Ronaldo Reed MD Ketones Ql (U) Negative Normal NEG [facility] Comment on above: Performed By: #### U AX #### [facility] [address] [place] [address] Workday Consultant: Ronaldo Reed MD Leukocyte esterase Test strip Ql (U) Negative Normal NEG [facility] Comment on above: Performed By: #### U AX #### [facility] [address] [place] [address] Workday Consultant: Ronaldo Reed MD Nitrite,Ur Negative Normal NEG [facility] Comment on above: Performed By: #### U AX #### [facility] [address] [place] [address] Workday Consultant: Ronaldo Reed MD PH,Ur 5.0 Normal 5.0-8.0 [facility] Comment on above: Performed By: #### U AX #### [facility] [address] [place] [phone] Workday Consultant: Ronaldo Reed MD Protein Ql (U) TRACE Abnormal NEG [facility] Comment on above: Performed By: #### U AX #### [facility] [address] [place] [address] Workday Consultant: Ronaldo Reed MD Spec. Stafford,Ur 1.020 Normal 1.005-1.030 [facility] Comment on above: Performed By: #### U AX #### [facility] [address] [place] [address] Workday Consultant: Ronaldo Reed MD Urobilinogen,Ur Normal Normal NORM [facility] Comment on above: Performed By: #### U AX #### [facility] [address] [place] [address] Workday Consultant: Ronaldo Reed MD Urinalysis with Reflex to Cu ltureon 12-21-2022 Bilirubin Urine Negative NEGATIVE [facility] Color, UA Yellow Yellow [facility] Glucose, Ur Negative NEGATIVE [facility] Interpretation and review of laboratory results Abnormal [facility] Ketones Ql (U) Negative NEGATIVE [facility] Leukocyte esterase Test strip Ql (U) Negative NEGATIVE [facility] Nitrite, Urine Negative NEGATIVE [facility] [facility] pH, UA 5.0 5.0 - 8.0 [facility] Protein, UA TRACE Abnormal NEGATIVE [facility] Specific [place], UA 1.020 1.005 - 1.030 [facility] Turbidity UA Clear Clear [facility] Urinalysis Comments [facility] Urine Hgb Negative NEGATIVE [facility] Urobilinogen, Urine Normal Normal [facility] Basic Metabolic Panelon 11-27 Anion gap [Moles/Vol] 10 mmol/L 9 - 17 mmol/L [facility] Calcium [Mass/Vol] 9.6 mg/dL 8.6 - 10. 4 mg/dL [facility] Chloride [Moles/Vol] 101 mmol/L 98 - 10 7 mmol/L [facility] CO2 [Moles/Vol] 29 mmol/L 20 - 31 mmol/L [facility] Creatinine [Mass/Vol] 0.89 mg/dL 0.50 - 0.90 mg/dL [facility] GFR/1.73 sq M.predicted MDRD (S/P/Bld) [Vol rate/Area] - PINF [facility] Comment on above: Effective Aug 28, [...] 116 mg/dL High 70 - 99 mg/dL [facility] Interpretation and review of laboratory results Abnormal [facility] Potassium [Moles/Vol] 4.2 mmol/L 3.7 - 5.3 mmol/L [facility] Sodium [Moles/Vol] 140 mmol/L 135 - 144 mmol/L [facility] Urea nitrogen (BldV) [Mass/Vol] 34 mg/dL High 8 - 23 mg/dL [facility] Urea nitrogen/Creatinine (Bld) [Mass ratio] 38 High 9 - 20 [facility] Basic Metabolic Profon 01-22 -2023 Anion gap [Moles/Vol] 10 mmol/L Normal 9-[address] [facility] Comment on above: Performed By: #### U AX #### [facility] [address] [place], [place] [id number] Workday Consultant: Ronaldo Reed MD BUN/CRE Ratio 38 High 9-20 [facility] Comment on above: Performed By: #### U AX #### [facility] [address] [place], [place] [id number] Workday Consultant: Ronaldo Reed MD Calcium [Mass/Vol] 9.6 mg/dL Normal 8.6-10.4 [facility] Comment on above: Performed By: #### U AX #### [facility] [address] [place], [place] [id number] Workday Consultant: Ronaldo Reed MD Chloride [Moles/Vol] 101 mmol/L Normal 98-107 [facility] Comment on above: Performed By: #### U AX #### [facility] [address] [place], [place] [phone] Workday Consultant: Ronaldo Reed MD CO2 [Moles/Vol] 29 mmol/L Normal 20-31 [facility] Comment on above: Performed By: #### U AX #### [facility] [address] [place] [address] Workday Consultant: Ronaldo Reed MD Creatinine [Mass/Vol] 0.89 mg/dL Normal 0.50-0.[address] [facility] Comment on above: Performed By: #### U AX #### [facility] [address] [place] [address] Workday Consultant: Ronaldo Reed MD GFR/1.73 sq M.predicted among non-blacks MDRD (S/P/Bld) [Vol rate/Area] mL/min/{1.73_m2} Normal >60 [facility] Comment on above: Result Comment: Effective Aug [...] By: #### U AX #### [facility] [address] [place] [address] Workday Consultant: Ronaldo Reed MD Glucose [Mass/Vol] 116 mg/dL High 70-99 [facility] Comment on above: Performed By: #### U AX #### [facility] [address] [place] [address] Workday Consultant: Ronaldo Reed MD Potassium [Moles/Vol] 4.2 mmol/L Normal 3.7-5.[address] [facility] Comment on above: Performed By: #### U AX #### [facility] [address] [place] [address] Workday Consultant: Ronaldo Reed MD Sodium [Moles/Vol] 140 mmol/L Normal 135-144 [facility] Comment on above: Performed By: #### U AX #### [facility] [address] [place] [address] Workday Consultant: Ronaldo Reed MD Urea nitrogen [Mass/Vol] 34 mg/dL High 8-23 [facility] Comment on above: Performed By: #### U AX #### [facility] [address] [place] [address] Workday Consultant: Ronaldo Reed MD CBC with Auto Differentialon 12-17-2022 Absolute Eos # 0.60 High [facility] Absolute Lymph # 3.20 [facility] Absolute Kershaw # 0.80 [facility] Basophils (Bld) [#/Vol] 0.00 10*3/uL [facility] Basophils/100 WBC (Bld) 0 % 0 - 2 % [facility] Differential Type YES [facility] Eosinophils/100 WBC (Bld) 6 % High 0 - 5 % [facility] Hematocrit (Bld) [Volume fraction] 36.6 % 36 - 46 % [facility] Hemoglobin (Bld) [Mass/Vol] 12.1 g/dL 12.0 - 16.0 g/dL [facility] Interpretation and review of laboratory results Abnormal [facility] Lymphocytes/100 WBC (Bld) 30 % 15 - 40 % [facility] MCH (RBC) [Entitic mass] 31.4 pg 26 - 34 pg [facility] MCHC (RBC) [Mass/Vol] 33.0 g/dL 31 - 37 g/dL B [facility] MCV (RBC) [Entitic vol] 95.1 fL 80 - 100 fL [facility] Monocytes/100 WBC (Bld) 8 % 4 - 8 % [facility] Platelet distribution width (Bld) [Ratio] 13.9 % 12.1 - 15.2 % [facility] Platelets (Bld) [#/Vol] 390 10*3/uL [facility] RBC (Bld) [#/Vol] 3.85 10*6/uL Low 4.0 - 5.2 m/uL [facility] Segmented neutrophils/100 WBC (Bld) 56 % 47 - 75 % [facility] Segs Absolute 6.00 [facility] WBC (Bld) [#/Vol] 10.6 10*3/uL [facility] CBC with Diffon 12-17-2022 Abs. Basophil 0.00 k/uL Normal 0.0-0.2 [facility] Comment on above: Performed By: #### U AX #### [facility] [address] [place] [address] Workday Consultant: Ronaldo Reed MD Abs.Neutrophil (Seg) 6.00 k/uL Normal 2.5-7.0 [facility] Comment on above: Performed By: #### U AX #### [facility] [address] [place] [address] Workday Consultant: Ronaldo Reed MD Auto Diff Performed YES Normal [facility] Comment on above: Performed By: #### U AX #### [facility] [address] [place] [address] Workday Consultant: Ronaldo Reed MD Basophils/100 WBC (Bld) 0 % Normal 0-2 [facility] Comment on above: Performed By: #### U AX #### [facility] [address] [place] [address] Workday Consultant: Ronaldo Reed MD Eosinophils (Bld) [#/Vol] 0.60 10*3/uL High 0.0-0.4 [facility] Comment on above: Performed By: #### U AX #### [facility] [address] [place] [address] Workday Consultant: Ronaldo Reed MD Eosinophils/100 WBC (Bld) 6 % High 0-5 [facility] Comment on above: Performed By: #### U AX #### [facility] [address] [place] [address] Workday Consultant: Ronaldo Reed MD Erythrocyte distribution width (RBC) [Ratio] 13.9 % Normal 12.1-15.2 [facility] Comment on above: Performed By: #### U AX #### [facility] [address] [place] [address] Workday Consultant: Ronaldo Reed MD Hematocrit (Bld) [Volume fraction] 36.6 % Normal 36-46 [facility] Comment on above: Performed By: #### U AX #### [facility] [address] [place] [address] Workday Consultant: Ronaldo Reed MD Hemoglobin (Bld) [Mass/Vol] 12.1 g/dL Normal 12.0-16.0 [facility] Comment on above: Performed By: #### U AX #### [facility] [address] [place] [address] Workday Consultant: Ronaldo Reed MD Lymphocytes (Bld) [#/Vol] 3.20 10*3/uL Normal 1.0-4.8 [facility] Comment on above: Performed By: #### U AX #### [facility] [address] [place] [address] Workday Consultant: Ronaldo Reed MD Lymphocytes/100 WBC (Bld) 30 % Normal 15-40 [facility] Comment on above: Performed By: #### U AX #### [facility] [address] [place] [address] Workday Consultant: Ronaldo Reed MD MCH (RBC) [Entitic mass] 31.4 pg Normal 26-34 [facility] Comment on above: Performed By: #### U AX #### [facility] [address] [place] [address] Workday Consultant: Ronaldo Reed MD MCHC (RBC) [Mass/Vol] 33.0 g/dL Normal 31-[address] [facility] Comment on above: Performed By: #### U AX #### [facility] [address] [place] [address] Workday Consultant: Ronaldo Reed MD MCV (RBC) [Entitic vol] 95.1 fL Normal 80-100 [facility] Comment on above: Performed By: #### U AX #### [facility] [address] [place] [address] Workday Consultant: Ronaldo Reed MD Monocytes (Bld) [#/Vol] 0.80 10*3/uL Normal 0.0-1.0 [facility] Comment on above: Performed By: #### U AX #### [facility] [address] [place] [address] Workday Consultant: Ronaldo Reed MD Monocytes/100 WBC (Bld) 8 % Normal 4-8 [facility] Comment on above: Performed By: #### U AX #### [facility] [address] [place] [address] Workday Consultant: Ronaldo Reed MD Neutrophil (Seg) 56 % Normal 47-75 [facility] Comment on above: Performed By: #### U AX #### [facility] [address] [place] [address] Workday Consultant: Ronaldo Reed MD Platelets (Bld) [#/Vol] 390 10*3/uL Normal 140-450 [facility] Comment on above: Performed By: #### U AX #### [facility] [address] [place] [address] Workday Consultant: Ronaldo Reed MD RBC (Bld) [#/Vol] 3.85 10*6/uL Low 4.0-5.2 [facility] Comment on above: Performed By: #### U AX #### [facility] [address] [place] [address] Workday Consultant: Ronaldo Reed MD WBC (Bld) [#/Vol] 10.6 10*3/uL Normal 3.5-11.0 [facility] Comment on above: Performed By: #### U AX #### [facility] [address] [place] [address] Workday Consultant: Ronaldo Reed MD CHEMISTRYOrdered By: Lab ROP User on 12-15-2022 Glucose [Mass/Vol] 130 mg/dL High 55 - 99 mg/dL [facility] POC Subsection Comment on above: Result Comment: Blanca allen RN/ POC Device SN [id number] Invalid Interpretation Code [facility] POC Subsection POC User ID [id number] Invalid Interpretation Code [facility] POC Subsection POC Username CONSTANCE SHUKLA Invalid Interpretation Code [facility] P[facility] Subsection Glucose [Mass/Vol] 132 mg/dL High 55 - 99 mg/dL [facility] POC Subsection Comment on above: Result Comment: Blanca allen RN/ POC Device SN [id number] Invalid Interpretation Code [facility] POC Subsection POC User ID [id number] Invalid Interpretation Code [facility] POC Subsection POC Username CONSTANCE SHUKLA Invalid Interpretation Code [facility] POC Subsection Glucose [Mass/Vol] 122 mg/dL High 55 - 99 mg/dL [facility] POC Subsection Comment on above: Result Comment: Danitza lizzie Meter POC Device SN [id number] Invalid Interpretation Code [facility] POC Subsection POC User ID [id number] Invalid Interpretation Code [facility] POC Subsection POC Username ROEL NI Invalid Interpretation Code [facility] POC Subsection CHEMISTRYOrdered By: SYSTEM SYSTEM on 12-12-2022 Anion gap [Moles/Vol] 11 mmol/L Normal 6 - 16 mEq/L [facility] Remisol Calcium [Mass/Vol] 9.2 mg/dL Normal 8.9 [...] 141 mmol/L Normal 135 - 145 mmol/L [facility] Rem[facility] Troponin I.cardiac [Mass/Vol] 6.30 pg/mL Low 10.10 - 27.10 pg/mL [facility] Urea nitrogen [Mass/Vol] 34 mg/dL High 5 - 21 mg/dL [facility] Urea nitrogen/Creatinine [Mass ratio] 38 mg/mg [...] PM) Normal Negative [facility] UA Auto SS Rimini.plasma/Rimini .RBC (Bld) [Mass ratio] 0-3 /HPF Normal 0-3/HPF [facility] UA Auto SS Nitrite Ql (U) Negative (12/12/22 8:38 PM) Normal Negative [facility] UA Auto SS pH (U) 5.0 *NA* (12/12/22 8:38 PM) Invalid Interpretation Code 5.0 - 9.0 [facility] UA Auto SS Protein (U) [Mass/Vol] Negative (12/12/22 8:38 PM) Normal Negative [facility] UA Auto SS Specific gravity (U) [Rel density] 1.020 *NA* (12/12/22 8:38 PM) Invalid Interpretation Code 1.005 - 1.030 [facility] UA Auto SS UA Spec Desc Clean Catch (12/12/22 8:38 PM) Normal [facility] UA Auto SS Urobilinogen Qn (U) [id number] {Pollo'U}/dL Normal 0.0 - 1.0 EU/dL [facility] UA Auto SS WBC Auto Ql (U) Negative (12/12/22 8:38 PM) Normal Negative [facility] UA Auto SS WBC LM.HPF (Urine sed) [#/Area] 0-5 /HPF Normal 0-5/HPF [facility] UA Auto SS XR ANKLE RIGHT (MIN [...] Karly Arzate MD 12/07/22 Final result Normal [facility] Acute distal fibular fracture. [facility] EXAM: XR ANKLE RIGHT (MIN 3 VIEWS) HISTORY: Reason for exam:->injury COMPARISON: None. TECHNIQUE: 3 views of the right ankle FINDINGS: Acute nondisplaced oblique fracture of the distal fibula is seen. Joint alignment is normal. Joint spaces are preserved. Soft tissue swelling seen about the lateral ankle. Plantar and posterior calcaneal spur is seen. [facility] Karly Arzate MD - [...] is seen. IMPRESSION: Acute distal fibular fracture. [employer] Phone: Radiology Study observation (narrative) [employer] Phone: XR ANKLE RIGHT (MIN 3 VIEWS) Ordered By: Karly Arzate on 12-07-2022 [employer] Phone: CHEMISTRYOrdered By: SYSTEM SYSTEM on 09-28-2022 Albumin [Mass/Vol] 3.7 g/dL Normal 3.3 - 5.0 gm/dL [facility] Remisol Albumin/Globulin [Mass ratio] 1.1 {ratio} Normal 1.1 - 2.2 [facility] Remisol ALP [Catalytic activity/Vol] 79 [iU]/d Normal [...] (Bld) [Mass fraction] 6.2 % High <=5.9% [facility] ChemAutoSS HEMATOLOGYOrdered By: SYSTEM SYSTEM on 09-28-2022 Basophils/100 WBC (Bld) 0.3 % Normal 0.0 - 2.0 % FT [...] 13.7 g/dL Normal 12.0 - 16.0 gm/dL [facility] HemeAutoSS MCH (RBC) [Entitic mass] 31.4 pg [...] 252.0 E9/L Normal 150.0 - 500.0 E9/L [facility] HemeAutoSS RBC (Bld) [#/Vol] 4.4 E12/L Normal 4.3 - 5.9 E12/L [facility] HemeAutoSS WBC corrected for nucl RBC Auto (Bld) [#/Vol] 11.5 E9/L High 4.0 - 11.0 E9/L [facility] HemeAutoSS CBC Auto Differentialon 07-27 Absolute Eos # 0.50 High [facility] Absolute Lymph # 2.40 [facility] Absolute Kershaw # 0.60 [facility] Basophils (Bld) [#/Vol] 0.00 10*3/uL [facility] Basophils/100 WBC (Bld) 0 % 0 - 2 % [facility] Differential Type YES [facility] Eosinophils/100 WBC (Bld) 5 % 0 - 5 % [facility] Hematocrit (Bld) [Volume fraction] 37.0 % 36 - 46 % [facility] Hemoglobin (Bld) [Mass/Vol] 12.5 g/dL 12 - 16 g/dL [facility] Interpretation and review of laboratory results Abnormal [facility] Lymphocytes/100 WBC (Bld) 25 % 15 - 40 % [facility] MCH (RBC) [Entitic mass] 31.6 pg 26 - 34 pg [facility] MCHC (RBC) [Mass/Vol] 33.8 g/dL 31 - 37 g/dL [facility] MCV (RBC) [Entitic vol] 93.5 fL 80 - 100 fL [facility] Monocytes/100 WBC (Bld) 6 % 4 - 8 % [facility] Platelet distribution width (Bld) [Ratio] 13.2 % 12.1 - 15.2 % [facility] Platelets (Bld) [#/Vol] 320 10*3/uL [facility] RBC (Bld) [#/Vol] 3.95 10*6/uL Low 4 - 5.2 m/uL [facility] Segmented neutrophils/100 WBC (Bld) 64 % 47 - 75 % [facility] Segs Absolute 5.90 [facility] WBC (Bld) [#/Vol] 9.3 10*3/uL [facility] Comprehensive Metabolic Pane salima 08-08-2022 Albumin [Mass/Vol] 3.6 g/dL 3.5 - 5.2 g/dL [facility] ALP (Bld) [Catalytic activity/Vol] 111 U/L High 35 - 104 U/L [facility] ALT [Catalytic activity/Vol] 20 U/L 5 - 33 U/L [facility] Anion gap [Moles/Vol] 10 mmol/L 9 - 17 mmol/L [facility] AST [Catalytic activity/Vol] 20 U/L NINF - 32 U/L [facility] Bilirubin [Mass/Vol] 0.5 mg/dL 0.3 - 1 .2 mg/dL [facility] Calcium [Mass/Vol] 9.7 mg/dL 8.6 - 10. 4 mg/dL [facility] Chloride [Moles/Vol] 102 mmol/L 98 - 10 7 mmol/L [facility] CO2 [Moles/Vol] 28 mmol/L 20 - 31 mmol/L [facility] Creatinine [Mass/Vol] 0.77 mg/dL 0.5 - 0.9 mg/dL [facility] Free PSA/Total PSA [Mass fraction] 6.7 g/dL 6.4 - 8.3 g/dL [facility] GFR >60 60 - PI NF mL/min [facility] GFR Non- >60 60 - PINF mL/min [facility] GFR/1.73 sq M.predicted MDRD (S/P/Bld) [Vol rate/Area] [facility] Comment on above: Average GFR for 70 o r more years old: 75 mL/min/1.73sq m Chronic Kidney Disease: <60 mL/min/1.73sq m Kidney failure: <15 mL/min/1.73sq m eGFR calculated using average adult body mass. Additional eGFR calculator available at: http://[email or web address] [place].com/multiple_crcl_2012.htm Glucose [Mass/Vol] 126 mg/dL High 70 - 99 mg/dL [facility] [employer] Interpretation and review of laboratory results Abnormal [facility] Potassium [Moles/Vol] 4.8 mmol/L 3.7 - 5.3 mmol/L [facility] Sodium [Moles/Vol] 140 mmol/L 135 - 144 mmol/L [facility] Urea nitrogen (BldV) [Mass/Vol] 22 mg/dL 8 - 23 mg/dL [facility] [employer] Urea nitrogen/Creatinine (Bld) [Mass ratio] 29 High 9 - 20 [facility] Lipid Panelon 08-08-2022 Cholesterol [Mass/Vol] 138 mg/dL NINF - 200 mg/dL [facility] [employer] Comment on above: Cholesterol Guidelines: <200 Desirable 200-240 Borderline >240 Undesirable Cholesterol in HDL [Mass/Vol] 42 mg/dL 40 - PINF mg/dL [facility] [employer] Comment on above: HDL Guidelines: <40 Undesirable 40-59 Borderline >59 Desirable Cholesterol in LDL [Mass/Vol] 72 mg/dL 0 - 130 mg/dL [facility] Comment on above: LDL Guidelines: <100 Desirable 100-129 Near to/above Desirable 130-159 Borderline >159 Undesirable Direct (measured) LDL and calculated LDL are not interchangeable tests. Cholesterol.total/Chol esterol in HDL [Mass ratio] 3.3 {ratio} NINF - 5 [facility] Triglyceride [Mass/Vol] 122 mg/dL NINF - 150 mg/dL [facility] [employer] Comment on above: Triglyceride Guidelines: <150 Desirable 150-199 Borderline 200-499 High >499 Very high Based on AHA Guidelines for fasting triglyceride, August 2012. [facility] Magnesiumon 08-08-2022 Magnesium [Mass/Vol] 1.7 mg/dL 1.6 - 2 .6 mg/dL [facility] [employer] No Panel Informationon 08-08 [facility] [employer] Patient Fasting?on 2 Patient Fasting? yes [facility] [employer] [facility] TSH with Reflexon 08-08-2022 TSH Qn 2.08 m[IU]/L [facility] [employer] Vitamin D 25 Hydroxyon 08-08 Vit D, 25-Hydroxy 40.6 ng/mL 29.9 - PIN F ng/mL [facility] Comment on above: Reference Range: Vitamin D status Range Deficiency <20 ng/mL Mild Deficiency 20-30 ng/mL Sufficiency 30-100 ng/mL Toxicity >100 ng/mL [facility] XR CHEST (2 VW)on 08-08-2022 Chronic changes [...] overinflation. IMPRESSION: Chronic changes and emphysema, similar. [employer] Work Phone: Radiology Study observation (narrative) [employer] Phone: XR CHEST (2 VW)Ordered By: Lyudmila Godoy on 08-08-2022 [facility] Phone: URINALYSISOrdered By: Pola Castaneda on 07-25-2022 Bacteria LM Ql (Urine sed) 2+ /HPF Invalid Interpretation Code Trace/HPF [facility] Auto SS Bilirubin Ql (U) Negative (07/25/22 10:15 PM) Normal Negative [facility] Auto SS Clarity (U) Clear (07/25/22 10:15 PM) Normal Clear [facility] Auto SS Color (U) Yellow (07/25/22 10:15 PM) Normal Yellow [facility] Auto SS Epithelial cells.squamous LM.HPF (Urine sed) [#/Area] 0-2 /HPF Normal 0-2/HPF [facility] Aut o SS Glucose Test strip (U) [Mass/Vol] Negative (07/25/22 10:15 PM) Normal Negative [facility] UA Auto SS Hemoglobin Ql (U) Negative (07/25/22 10:15 PM) Normal Negative [facility] UA Auto SS Ketones (U) [Mass/Vol] Trace *ABN* (07/25/22 10:15 PM) Invalid Interpretation Code Negative [facility] UA Auto SS Rimini.plasma/Rimini .RBC (Bld) [Mass ratio] 0-3 /HPF Normal [...] Desc Random Urine (07/25/22 10:15 PM) Normal [facility] UA Auto SS Urobilinogen Qn (U) [id number] {Pollo'U}/dL Normal 0.0 - 1.0 EU/dL FT [...] rate/Area] mL/min/1.73 m2 Normal >=59mL/min/1 .73 m2 [facility] Chem S GFR/1.73 sq M.predicted among non-blacks MDRD (S/P/Bld) [Vol rate/Area] mL/min/1.73 m2 Normal >=59mL/min/1 .73 m2 [facility] Chem S Globulin (S) [Mass/Vol] 3.3 g/dL [...] % High <=5.9% [facility] ChemAutoSS HEMATOLOGYOrdered By: INNOBI SYSTEM on 06-19-2022 Basophils/100 WBC (Bld) 0.4 [...] rate/Area] mL/min/1.73 m2 Normal >=59mL/min/1 .73 m2 [facility] Chem S GFR/1.73 sq M.predicted among non-blacks MDRD (S/P/Bld) [Vol rate/Area] mL/min/1.73 m2 Normal >=59mL/min/1 .73 m2 [facility] Chem S Globulin (S) [Mass/Vol] 3.6 g/dL [...] 18 mm/h Normal 0 - 34 mm/hr [facility] HemeAutoSS WBC corrected for nucl RBC Auto (Bld) [#/Vol] 9.6 E9/L Normal 4.0 - 11.0 E9/L [facility] HemeAutoSS No Panel Informationon 05-03 Chondrocalcinosis and degenerative changes. [facility] EXAM: XR WRIST RIGHT [...] Mild radiocarpal joint space narrowing. No fracture. [facility] Bang Godoy Jr., MD [...] No fracture. IMPRESSION: Chondrocalcinosis and degenerative changes. [employer] Phone: No Panel InformationOrdered By: Bang Godoy on 05-03-2022 [employer] Phone: XR WRIST LEFT (MIN 3 VIEWS)o n 05-03-2022 Radiology Study observation (narrative) [employer] Phone: XR WRIST RIGHT (MIN 3 VIEWS) on 05-03-2022 Radiology Study observation (narrative) [employer] Phone: CHEMISTRYOrdered By: SYSTEM SYSTEM on 02-14-2022 Albumin [Mass/Vol] 3.7 g/dL Normal 3.3 - 5.0 gm/dL [facility] Albumin/Globulin [Mass ratio] 1.2 {ratio} Normal [...] 11. 1 mg/dL [facility] Chloride [Moles/Vol] 101 mmol/L Normal 101 - 1 11 mmol/L [facility] Remisol CO2 [Moles/Vol] 26 mmol/L Normal 21 - 31 mmol/L [facility] Remisol Creatinine [Mass/Vol] 0.8 mg/dL Normal 0.5 - 1.3 mg/dL [facility] Remisol GFR/1.73 sq M.predicted among blacks MDRD (S/P/Bld) [Vol rate/Area] mL/min/1.73 m2 Normal >=59mL/min/1 .73 m2 [facility] S GFR/1.73 sq M.predicted among non-blacks MDRD (S/P/Bld) [Vol rate/Area] mL/min/1.73 m2 Normal >=59mL/min/1 .73 m2 [facility] S Globulin (S) [Mass/Vol] 3.1 g/dL [...] 60 mL/min/1.73 m2 Normal >=59mL/min/1 .73 m2 [facility] Chem S Globulin (S) [Mass/Vol] 3.2 g/dL Normal 1.4 - 4.0 gm/dL [facility] Remisol Glucose [Mass/Vol] 125 mg/dL Normal 55 [...] 13.4 % Normal 10.9 - 14.2 % FT HemeAutoSS Hematocrit (Bld) [Volume fraction] 39.1 % Normal 34.0 - 46.0 % [facility] Hemoglobin (Bld) [Mass/Vol] 13.3 g/dL Normal 12.0 - 16.0 gm/dL FT [...] 295.0 E9/L Normal 150.0 - 500.0 E9/L [facility]eAutoSS RBC (Bld) [#/Vol] 4.2 E12/L Low 4.3 - 5.9 E12/L [facility]eAutoSS WBC corrected for nucl RBC Auto (Bld) [#/Vol] 7.5 E9/L Normal 4.0 - 11.0 E9/L [facility]eAutoSS HEMATOLOGYOrdered By: Daisy Diego on 12-14-2021 Sed Rate Automated 13 mm/h Normal 0 - 34 mm/hr [facility] XR LUMBAR SPINE (MIN 4 VIEWS )on 10-02-2021 No acute lumbar spine findings. Chronic changes are described above. If the patient has focal tenderness, further evaluation with MRI is recommended. [facility] EXAM: XR LUMBAR SPINE [...] There are dense aortic calcifications without aneurysm. [facility] Armand Chen MD - [...] tenderness, further evaluation with MRI is recommended. [employer]: [employer]: Radiology Study observation (narrative) [employer] Phone: XR THORACIC SPINE (3 VIEWS)o n [...] is seen in the lower cervical spine. [facility] Armand Myrick MD - 10/02/2021 EXAM: [...] CT scan or MRI could be considered. [employer]: Radiology Study observation (narrative) [employer]: XR THORACIC SPINE (3 VIEWS)O rdered By: Armand Chen on 10-02-2021 [employer] Phone: CBC Auto DifferentialOrdered By: Emiliano Leal on 09-12-2021 Absolute Eos # 0.[address] [facility] Work Phone: Absolute Immature Granulocyte NOT REPORTED [employer]: Absolute Lymph # 1.70 [employer] [facility] Work Phone: Absolute [place]haw # 0.40 [employer] [facility] Work Phone: Basophils (Bld) [#/Vol] 0.00 10*3/uL [email or web address] Work Phone: Basophils/100 WBC (Bld) 0 % 0 - 2 % [employer]: Differential Type YES [facility] [facility] Work Phone: Eosinophils/100 WBC (Bld) 3 % 0 - 5 % [employer] Phone: Hematocrit (Bld) [Volume fraction] 37.3 % 36 - 46 % [employer] Phone: Hemoglobin.gastrointes tinal spec 1 Ql (Stl) 12.5 g/dL 12.0 - 16.0 g/dL [employer] Phone: Immature Granulocytes NOT REPORTED 0 % [employer] Phone: Interpretation and review of laboratory results Abnormal [employer] Phone: Lymphocytes/100 WBC (Bld) 27 % 15 - 40 % [employer] Phone: MCH (RBC) [Entitic mass] 31.7 pg 26 - 34 pg [employer] Phone: MCHC (RBC) [Mass/Vol] 33.4 g/dL 31 - 37 g/dL [facility] [employer] Phone: MCV (RBC) [Entitic vol] 94.9 fL 80 - 100 fL [employer] Phone: Monocytes/100 WBC (Bld) 6 % 4 - 8 % [employer] Phone: NRBC Automated NOT REPORTED per 100 WBC [employer] [facility] Work Phone: Platelet distribution width (Bld) [Ratio] 14.1 % 12.1 - 15.2 % [employer] Phone: Platelet Estimate NOT REPORTED [employer] Phone: Platelet mean volume (Bld) [Entitic vol] NOT REPORTED 6.0 - 12.0 fL [employer] Phone: Platelets (Bld) [#/Vol] 311 10*3/uL [employer] Phone: RBC (Bld) [#/Vol] 3.93 10*6/uL Low 4.0 - 5.2 m/uL [employer] Phone: RBC (Bld) [#/Vol] NOT REPORTED [employer] Phone: Segmented neutrophils/100 WBC (Bld) 64 % 47 - 75 % [email or web address] Work Phone: Segs Absolute 4.20 [employer] Work Phone: WBC (Bld) [#/Vol] 6.6 10*3/uL [email or web address] Work Phone: WBC (Bld) [#/Vol] NOT REPORTED [employer]: [employer]: Comprehensive Metabolic Pane lOrdered By: Emiliano Leal on 09-12-2021 Albumin [Mass/Vol] 3.7 g/dL 3.5 - 5.2 g/dL [employer] Phone: Albumin/Globulin Ratio NOT REPORTED [employer] Phone: ALP (Bld) [Catalytic activity/Vol] 95 U/L 35 - 104 U/L [employer] Phone: ALT [Catalytic activity/Vol] 17 U/L 5 - 33 U/L [employer] Phone: Anion gap [Moles/Vol] 9 mmol/L 9 - 17 mmol/L [employer] Phone: AST [Catalytic activity/Vol] 16 U/L <32 [employer] Phone: Bilirubin [Mass/Vol] 0.48 mg/dL 0.30 - 1.20 mg/dL [employer] Phone: Calcium [Mass/Vol] 9.1 mg/dL 8.6 - 10. 4 mg/dL [employer] Phone: Chloride [Moles/Vol] 105 mmol/L 98 - 10 7 mmol/L [employer] Phone: CO2 [Moles/Vol] 26 mmol/L 20 - 31 mmol/L [employer] Phone: Creatinine [Mass/Vol] 0.64 mg/dL 0.50 - 0.90 mg/dL [employer] Phone: Free PSA/Total PSA [Mass fraction] 6.7 g/dL 6.4 - 8.3 g/dL [employer]: GFR >60 >60 mL/min [email or web address] Phone: GFR Non- >60 >60 mL/min [employer] Phone: GFR/1.73 sq M.predicted MDRD (S/P/Bld) [Vol rate/Area] [employer]: Comment on above: Average GFR for 70 o r more years old: 75 mL/min/1.73sq m Chronic Kidney Disease: <60 mL/min/1.73sq m Kidney failure: <15 mL/min/1.73sq m eGFR calculated using average adult body mass. Additional eGFR calculator available at: http://www.Priccut/multiple_crcl_2012.htm GFR/1.73 sq M.predicted MDRD (S/P/Bld) [Vol rate/Area] NOT REPORTED [employer] Phone: Glucose [Mass/Vol] 128 mg/dL High 70 - 99 mg/dL [employer] Phone: Interpretation and review of laboratory results Abnormal [employer] Phone: Potassium [Moles/Vol] 3.6 mmol/L Low 3.7 - 5.3 mmol/L [employer] Phone: Sodium [Moles/Vol] 140 mmol/L 135 - 144 mmol/L [employer] Phone: Urea nitrogen (BldV) [Mass/Vol] 14 mg/dL 8 - 23 mg/dL [employer] Phone: Urea nitrogen/Creatinine (Bld) [Mass ratio] 22 High [employer] Phone: Lipid PanelOrdered By: Emiliano Leal on 09-12-2021 Cholesterol [Mass/Vol] 138 mg/dL <200 [employer] Phone: Comment on above: Cholesterol Guidelines: <200 Desirable 200-240 Borderline >240 Undesirable Cholesterol in HDL [Mass/Vol] 55 mg/dL >40 [facility]: Comment on above: HDL Guidelines: <40 Undesirable 40-59 Borderline >59 Desirable Cholesterol in LDL [Mass/Vol] 63 mg/dL 0 - 130 mg/dL [employer]: Comment on above: LDL Guidelines: <100 Desirable 100-129 Near to/above Desirable 130-159 Borderline >159 Undesirable Direct (measured) LDL and calculated LDL are not interchangeable tests. Cholesterol in VLDL [Mass/Vol] NOT REPORTED 1 - 30 mg/dL [facility] Phone: Cholesterol.total/Chol esterol in HDL [Mass ratio] 2.5 {ratio} <5 [facility] Phone: Triglyceride [Mass/Vol] 101 mg/dL <150 [facility] Phone: Comment on above: Triglyceride Guidelines: <150 Desirable 150-199 Borderline 200-499 High >499 Very high Based on AHA Guidelines for fasting triglyceride, August 2012. [employer] Phone: MagnesiumOrdered By: Emiliano nam on 09-12-2021 Magnesium [Mass/Vol] 1.7 mg/dL 1.6 - 2 .6 mg/dL [employer] Phone: No Panel InformationOrdered By: Emiliano Leal on 09-12-2021 [employer]: Patient Fasting?Ordered By: Emiliano Leal on 09-12-2021 Patient Fasting? yes [employer] Work Phone: [employer] Phone: TSH with ReflexOrdered By: Lloyd Leal on 09-12-2021 TSH Qn 1.77 m[IU]/L [employer] Phone: Vitamin D 25 HydroxyOrdered By: Emiliano Leal on 09-12-2021 Vit D, 25-Hydroxy 35.6 ng/mL 30.0 - 100 .0 ng/mL [employer]: Comment on above: Reference Range: Vitamin D status Range Deficiency <20 ng/mL Mild Deficiency 20-30 ng/mL Sufficiency 30-100 ng/mL Toxicity >100 ng/mL [employer] Phone: XR CHEST (2 VW)Ordered By: Lloyd Leal on 09-12-2021 COPD with mild nonspecific reticular opacities at the lung bases favoring atelectasis and/or fibrotic scarring. The lungs appear otherwise clear. [employer] Phone: EXAM: XR CHEST (2 VW) HISTORY: [...] hardware near the cervicothoracic junction appears unchanged. [employer] Phone: Anupam, pn Incoming Radiant Results From [facility] - 09/12/2021 12:29 PM EDT EXAM: XR [...] fibrotic scarring. The lungs appear otherwise clear. [employer]: [employer] Phone: CHEMISTRYOrdered By: SYSTEM SYSTEM on 08-24-2021 [...] m2 [facility] Chem S Globulin (S) [Mass/Vol] 3.0 g/dL Normal 1.4 - 4.0 gm/dL [facility] Remisol Glucose [Mass/Vol] 118 mg/dL Normal 55 - 199 mg/dL [facility] Potassium [Moles/Vol] 4.0 mmol/L Normal 3.5 [...] - 7.5 E9/L [facility] HEMATOLOGYOrdered By: Isidoromagaly anali Rios on 08-24-2021 Erythrocyte distribution width (RBC) [...] 06-13-2021 Anupam, [facility] Incoming Cardio Results From [facility] - 06/14/2021 8:21 AM EDT [facility] Vascular Lower Extremities DVT Study Procedure Patient Name BRIDGET Date of Study 06/13/2021 ALEENA Dixon Date of 1935 Gender Female Age 85 year(s) Race Room Number Corporate ID # [id number] Patient MR # [id number] Kaiako Kura Tuar[place] Kiya Forte, RT Interpreting Physician Heri Godoy [...] !None ! + +-- --------+ ----+ + [employer]: [employer]: XR HIP 2-3 VW W PELVIS LEFTO rdered By: Xena Andrews on 06-11-2021 1. Mild to moderate degenerative changes are noted in both hips. 2. No fracture or dislocation is identified. 3. Atherosclerosis. [employer] Phone: PELVIS AND LEFT HIP RADIOGRAPH 06/11/2021 [...] lumbar spine. Extensive atherosclerotic changes are noted. [employer] Phone: Anupam, pn Incoming Radiant Results From [facility] - 06/11/2021 9:34 AM EDT PELVIS AND [...] fracture or dislocation is identified. 3. Atherosclerosis. [employer]: [employer]: XR CERVICAL SPINE (4-5 VIEWS )Ordered By: Merissa Donald on 06-09-2021 Degenerative changes with intact fusion lower cervical spine. [employer] Phone: EXAM: XR CERVICAL SPINE (4-5 VIEWS) [...] for age. Lung apices clear. Odontoid normal. [employer] Phone: Anupam, [email or web address] Incoming Radiant Results From [facility] - 06/09/2021 11:40 AM EDT EXAM: XR [...] changes with intact fusion lower cervical spine. [employer]: [employer] Phone: CT HEAD WO CONTRASTon 2020 Right supraorbital scalp hematoma. No skull fracture or intracranial hemorrhage. [employer]: EXAMINATION: CT HEAD WO CONTRAST HISTORY: [...] show no fracture. Multiplanar reconstructions otherwise negative. [employer]: Anupam, [facility] [[email or web address]] Incoming Radiant Results From [facility] - 03/08/2021 12:50 PM EDT EXAMINATION: CT [...] hematoma. No skull fracture or intracranial hemorrhage. [employer] Phone: MRI lumbar spine without con traston 02-03-2021 Significant severe spinal canal stenosis at L3-L4, L4-L5 and L5-S1 caused by discogenic disease and facet arthropathy as detailed above. [employer]: LUMBAR MRI HISTORY: Low back pain [...] deformity at L1. Distal cord appears unremarkable. [id number] Work Phone: Anupam, M[facility]pn Incoming Radiant Results From [facility] - 02/03/2021 1:21 PM EST LUMBAR MRI [...] disease and facet arthropathy as detailed above. [employer] Phone: XR KNEE RIGHT (MIN 4 VIEWS)o n 10-06-2020 Severe osteoarthritic changes right knee. Moderate degenerative change left knee. [facility]- [place] EXAM: XR KNEE RIGHT (MIN 4 [...] not as severe as on the right. [place], [place] Anupam, [facility] Incoming Radiant Results From [facility] - 10/06/2020 6:40 PM EST EXAM: XR [...] right knee. Moderate degenerative change left knee. [place], [place] CBC Auto Differentialon 08-26 Basophils (Bld) [#/Vol] 0.00 10*3/uL [place] Basophils/100 WBC (Bld) 0 % 0 - 2 % [place] Differential Type YES [place] Eosinophils (Bld) [#/Vol] 0.30 10*3/uL [place] Eosinophils/100 WBC (Bld) 3 % 0 - 5 % [place] Erythrocyte distribution width (RBC) [Ratio] 13.9 % 12.1 - 15.2 % [place] Hematocrit (Bld) [Volume fraction] 40.0 % 36 - 46 % [place] Hemoglobin (Bld) [Mass/Vol] 13.5 g/dL 12 - 16 g/dL [place] Lymphocytes (Bld) [#/Vol] 2.60 10*3/uL [place] Lymphocytes/100 WBC (Bld) 32 % 15 - 40 % [place] MCH (RBC) [Entitic mass] 31.4 pg 26 - 34 pg [place] MCHC (RBC) [Mass/Vol] 33.7 g/dL 31 - 37 g/dL [place] MCV (RBC) [Entitic vol] 93.1 fL 80 - 100 fL [place] Monocytes (Bld) [#/Vol] 0.50 10*3/uL [place] Monocytes/100 WBC (Bld) 7 % 4 - 8 % [place] Platelet mean volume (Bld) [Entitic vol] NOT REPORTED 6 - 12 fL [place] Platelets (Bld) [#/Vol] 266 10*3/uL [place] Platelets (Bld) [#/Vol] NOT REPORTED [place] RBC (Bld) [#/Vol] 4.29 10*6/uL 4 - 5.2 m/uL [place] RBC morphology finding Nom (Bld) NOT REPORTED [place] Segmented neutrophils/100 WBC (Bld) 58 % 47 - 75 % [place] Segs Absolute 4.70 [place] WBC (Bld) [#/Vol] 8.2 10*3/uL [place] WBC (Bld) [#/Vol] NOT REPORTED per 100 WBC [place] WBC Morphology NOT REPORTED [place], [place] Comprehensive Metabolic Pane salima 09-13-2020 Albumin [Mass/Vol] 4.3 g/dL 3.5 - 5.2 g/dL [place] Albumin/Globulin [Mass ratio] NOT REPORTED [place] ALP [Catalytic activity/Vol] 99 U/L 35 - 104 U/L [place] ALT [Catalytic activity/Vol] 22 U/L 5 - 33 U/L [place] Anion gap [Moles/Vol] 11 mmol/L 9 - 17 mmol/L [place] AST [Catalytic activity/Vol] 22 U/L <32 [place] Bilirubin Ql (U) 0.73 mg/dL 0.3 - 1.2 mg/dL [place] Bun/Cre Ratio 25 High [place], [place] Calcium [Mass/Vol] 9.7 mg/dL 8.6 - 10. 4 mg/dL [place] Chloride [Moles/Vol] 103 mmol/L 98 - 10 7 mmol/L [place] CO2 [Moles/Vol] 26 mmol/L 20 - 31 mmol/L [place] Creatinine [Mass/Vol] 0.77 mg/dL 0.5 - 0.9 mg/dL [place] GFR >60 >60 mL/min [place] GFR Non- >60 >60 mL/min [place] GFR/1.73 sq M predicted among non-blacks MDRD (S/P/Bld) [Vol rate/Area] NOT REPORTED [place] GFR/1.73 sq M predicted among non-blacks MDRD (S/P/Bld) [Vol rate/Area] [place] Comment on above: Average GFR for 70 o r more years old: 75 mL/min/1.73sq m Chronic Kidney Disease: <60 mL/min/1.73sq m Kidney failure: <15 mL/min/1.73sq m eGFR calculated using average adult body mass. Additional eGFR calculator available at: http://www.Priccut/multiple_crcl_2012.htm Glucose [Mass/Vol] 139 mg/dL High 70 - 99 mg/dL [place] Interpretation and review of laboratory results Abnormal [place] Potassium [Moles/Vol] 4.1 mmol/L 3.7 - 5.3 mmol/L [place] Protein [Mass/Vol] 7.7 g/dL 6.4 - 8.3 g/dL [place] Sodium [Moles/Vol] 140 mmol/L 135 - 144 mmol/L [place] Urea nitrogen [Mass/Vol] 19 mg/dL 8 - 23 mg/dL [place] Lipid Panelon 09-13-2020 Cholesterol [Mass/Vol] 150 mg/dL <200 Me [place] Comment on above: Cholesterol Guidelines: <200 Desirable 200-240 Borderline >240 Undesirable Cholesterol in HDL [Mass/Vol] 49 mg/dL >40 [place] Comment on above: HDL Guidelines: <40 Undesirable 40-59 Borderline >59 Desirable Cholesterol in LDL [Mass/Vol] 67 mg/dL 0 - 130 mg/dL [place] Comment on above: LDL Guidelines: <100 Desirable 100-129 Near to/above Desirable 130-159 Borderline >159 Undesirable Direct (measured) LDL and calculated LDL are not interchangeable tests. Cholesterol in VLDL [Mass/Vol] NOT REPORTED High 1 - 30 mg/dL [place] Cholesterol.total/Chol esterol in HDL [Mass ratio] 3.1 {ratio} <5 [place] Interpretation and review of laboratory results Abnormal [place] Triglyceride [Mass/Vol] 171 mg/dL High <150 [place], [place] Comment on above: Triglyceride Guidelines: <150 Desirable 150-199 Borderline 200-499 High >499 Very high Based on AHA Guidelines for fasting triglyceride, August 2012. Magnesiumon 09-13-2020 Magnesium [Mass/Vol] 1.9 mg/dL 1.6 - 2 .6 mg/dL [place] Otheron 09-13-2020 Immature granulocytes (Bld) [#/Vol] NOT REPORTED 0 % [place] Patient Fasting?on 0 Patient Fasting? YES [place], [place] TSH with Reflexon 09-13-2020 TSH Qn 2.67 m[IU]/L [place] Vitamin D 25 Hydroxyon 09-13 Vit D, 25-Hydroxy 34.7 ng/mL 30 - 100 ng/mL [place] Comment on above: Reference Range: Vitamin D status Range Deficiency <20 ng/mL Mild Deficiency 20-30 ng/mL Sufficiency 30-100 ng/mL Toxicity >100 ng/mL XR CHEST (2 VW)on 09-13-2020 Cardiomegaly, ASVD, pulmonary hyperinflation with the probable underlying COPD. [place] EXAM: XR CHEST (2 VW) HISTORY: Atrial fibrillation I48.91. CAD I25.10. Central hypertension I10. COMPARISON: None. TECHNIQUE: PA and lateral views FINDINGS: Cardiomegaly and ASVD are noted. Central vasculature appears satisfactory. Lung nioxn are hyperinflated with flattened hemidiaphragms and mild lung base interstitial accentuation. Left suprahilar nodular scar is noted. Appearance suggests a degree of underlying COPD. No acute consolidation, edema, or effusion is seen. Dorsal demineralization and degenerative changes are present. Previous low cervical metallic plate fusion is noted. [place] Anupam, [facility] Incoming Radiant Results From [facility] - 09/13/2020 11:58 AM EDT EXAM: XR [...] pulmonary hyperinflation with the probable underlying COPD. [place] CBC Auto Differentialon 12-0 Basophils (Bld) [#/Vol] 0.00 10*3/uL [place] Basophils/100 WBC (Bld) 0 % 0 - 2 % [place] Differential Type YES [place] Eosinophils (Bld) [#/Vol] 0.40 10*3/uL [place] Eosinophils/100 WBC (Bld) 6 % High 0 - 5 % [place] Erythrocyte distribution width (RBC) [Ratio] 13.7 % 12.1 - 15.2 % [place] Hematocrit (Bld) [Volume fraction] 39.4 % 36 - 46 % [place] Hemoglobin (Bld) [Mass/Vol] 13.4 g/dL 12 - 16 g/dL [place] Interpretation and review of laboratory results Abnormal [place] Lymphocytes (Bld) [#/Vol] 3.00 10*3/uL [place] Lymphocytes/100 WBC (Bld) 40 % 15 - 40 % [place] MCH (RBC) [Entitic mass] 32.3 pg 26 - 34 pg [place] MCHC (RBC) [Mass/Vol] 34.0 g/dL 31 - 37 g/dL [place] MCV (RBC) [Entitic vol] 95.0 fL 80 - 100 fL [place] Monocytes (Bld) [#/Vol] 0.60 10*3/uL [place] Monocytes/100 WBC (Bld) 8 % 4 - 8 % [place] Platelet mean volume (Bld) [Entitic vol] NOT REPORTED 6 - 12 fL [place] Platelets (Bld) [#/Vol] 243 10*3/uL [place] Platelets (Bld) [#/Vol] NOT REPORTED [place] RBC (Bld) [#/Vol] 4.15 10*6/uL 4 - 5.2 m/uL [place] RBC morphology finding Nom (Bld) NOT REPORTED [place] Segmented neutrophils/100 WBC (Bld) 46 % Low 47 - 75 % [place] Segs Absolute 3.60 [place] WBC (Bld) [#/Vol] NOT REPORTED per 100 WBC [place] WBC (Bld) [#/Vol] 7.7 10*3/uL [place] WBC Morphology NOT REPORTED [place], [place] Comprehensive Metabolic Pane salima 10-27-2019 Albumin [Mass/Vol] 4.2 g/dL 3.5 - 5.2 g/dL [place] Albumin/Globulin [Mass ratio] NOT REPORTED [place] ALP [Catalytic activity/Vol] 107 U/L High 35 - 104 U/L [place] ALT [Catalytic activity/Vol] 21 U/L 5 - 33 U/L [place] Anion gap [Moles/Vol] 15 mmol/L 9 - 17 mmol/L [place] AST [Catalytic activity/Vol] 17 U/L <32 [place] Bilirubin Ql (U) 0.67 mg/dL 0.3 - 1.2 mg/dL [place] Bun/Cre Ratio 20 [place] Calcium [Mass/Vol] 10.0 mg/dL 8.6 - 10. 4 mg/dL [place] Chloride [Moles/Vol] 104 mmol/L 98 - 10 7 mmol/L [place] CO2 [Moles/Vol] 23 mmol/L 20 - 31 mmol/L [place] Creatinine [Mass/Vol] 0.71 mg/dL 0.5 - 0.9 mg/dL [place] GFR >60 >60 mL/min [place] GFR Non- >60 >60 mL/min [place] GFR/1.73 sq M predicted among non-blacks MDRD (S/P/Bld) [Vol rate/Area] NOT REPORTED [place] GFR/1.73 sq M predicted among non-blacks MDRD (S/P/Bld) [Vol rate/Area] [place] Comment on above: Average GFR for 70 o r more years old: 75 mL/min/1.73sq m Chronic Kidney Disease: <60 mL/min/1.73sq m Kidney failure: <15 mL/min/1.73sq m eGFR calculated using average adult body mass. Additional eGFR calculator available at: http://www.[employer] [place].MaxTraffic/multiple_crcl_2012.htm Glucose [Mass/Vol] 136 mg/dL High 70 - 99 mg/dL [place] Interpretation and review of laboratory results Abnormal [place] Potassium [Moles/Vol] 3.6 mmol/L Low 3.7 - 5.3 mmol/L [place] Protein [Mass/Vol] 7.6 g/dL 6.4 - 8.3 g/dL [place] Sodium [Moles/Vol] 142 mmol/L 135 - 144 mmol/L [place] Urea nitrogen [Mass/Vol] 14 mg/dL 8 - 23 mg/dL [place] Lipid Panelon 10-27-2019 Cholesterol [Mass/Vol] 152 mg/dL <200 [place] Comment on above: Cholesterol Guidelines: <200 Desirable 200-240 Borderline >240 Undesirable Cholesterol in HDL [Mass/Vol] 59 mg/dL >40 [place] Comment on above: HDL Guidelines: <40 Undesirable 40-59 Borderline >59 Desirable Cholesterol in LDL [Mass/Vol] 70 mg/dL 0 - 130 mg/dL [place] Comment on above: LDL Guidelines: <100 Desirable 100-129 Near to/above Desirable 130-159 Borderline >159 Undesirable Direct (measured) LDL and calculated LDL are not interchangeable tests. Cholesterol in VLDL [Mass/Vol] NOT REPORTED 1 - 30 mg/dL [place] Cholesterol.total/Chol esterol in HDL [Mass ratio] 2.6 {ratio} <5 [place] Triglyceride [Mass/Vol] 114 mg/dL <150 [place] Comment on above: Triglyceride Guidelines: <150 Desirable 150-199 Borderline 200-499 High >499 Very high Based on AHA Guidelines for fasting triglyceride, August 2012. Magnesiumon 10-27-2019 Magnesium [Mass/Vol] 1.9 mg/dL 1.6 - 2 .6 mg/dL [place] Otheron 10-27-2019 Immature granulocytes (Bld) [#/Vol] NOT REPORTED [place] Patient Fasting?on 9 Patient Fasting? YES [place] TSH with Reflexon 10-27-2019 TSH Qn 2.50 m[IU]/L [place] Vitamin D 25 Hydroxyon 10-27 Interpretation and review of laboratory results Abnormal [place] Vit D, 25-Hydroxy 6.4 ng/mL Low 30 - 100 ng/mL [place] Comment on above: Reference Range: Vitamin D status Range Deficiency <20 ng/mL Mild Deficiency 20-30 ng/mL Sufficiency 30-100 ng/mL Toxicity >100 ng/mL Vital Signs Date Time Vital Sign Value Performing Clinician Facility 10-21-2024 14:43-0500 Body height 167.6 cm Keena Mcguire DO Work Phone: [facility] 10-21-2024 14:43-0500 Body mass index (BMI) [Ratio] 37.93 kg/m2 Keena Mcguire DO Work Phone: [facility] 10-21-2024 14:43-0500 Body weight 106.59 kg Keena Mcguire DO Work Phone: [facility] 01-03-2024 13:10-0500 Body height 167.6 cm Keena Mcguire DO Work Phone: [facility] 01-03-2024 13:10-0500 Body mass index (BMI) [Ratio] 37.93 kg/m2 Keena Mcguire DO Work Phone: [facility] 01-03-2024 13:10-0500 Body weight 106.59 kg Keena Mcguire DO Work Phone: [facility] 01-03-2024 13:04-0500 Body temperature 97.39 [degF] Keena Shayla DO Work Phone: [facility] 12-26-2022 09:18-0500 Respiratory rate 18 /min Андрей Rodriguez MD [facility] 12-26-2022 07:32-0500 Body temperature 97.9 [degF] Андрей Rodriguez MD [facility] 12-26-2022 07:32-0500 Diastolic blood pressure 66 mm[Hg] Андрей Rodriguez MD [facility] 12-26-2022 07:32-0500 Heart rate 85 /min Андрей Rodriguez MD Work Phone: [facility] [employer] 12-26-2022 07:32-0500 SaO2% (BldA) [Mass fraction] 99 % Андрей Rodriguez MD Work Phone: [facility] [employer] 12-26-2022 07:32-0500 Systolic blood pressure 133 mm[Hg] Андрей Rodriguez MD Work Phone: [facility] [employer] 12-25-2022 01:15-0500 Body mass index (BMI) [Ratio] 40.96 kg/m2 Андрей Rodriguez MD Work Phone: [facility] 12-25-2022 01:15-0500 Body weight 115.12 kg Андрей Rodriguez MD Work Phone: [facility] 12-18-2022 07:27-0500 Body height 167.6 cm Андрей Rodriguez MD Work Phone: [facility] 12-15-2022 20:36-0500 Diastolic blood pressure 73 mm[Hg] [facility] 12-15-2022 20:36-0500 Mean blood pressure 89 mm[Hg] [facility] 12-15-2022 20:36-0500 Systolic blood pressure 122 mm[Hg] [facility] 12-15-2022 20:10-0500 Heart rate 80 /min [facility] 12-15-2022 20:10-0500 SaO2% (BldA) [Mass fraction] 98 % [facility] 12-15-2022 20:10-0500 Respiratory rate 18 /min [facility] 12-15-2022 20:09-0500 Body temperature 98.24 [degF] [facility] 12-15-2022 20:09-0500 Diastolic blood pressure 73 mm[Hg] [facility] [facility] 12-15-2022 20:09-0500 Mean blood pressure 90 mm[Hg] [facility] 12-15-2022 20:09-0500 Systolic blood pressure 122 mm[Hg] [facility] 12-15-2022 18:40-0500 Hourly Rounding [facility] 12-15-2022 18:40-0500 Promise to Return [facility] 01-20-2023 17:17-0500 Hourly Rounding [facility] 12-15-2022 17:17-0500 Promise to Return [facility] 12-15-2022 16:26-0500 Hourly Rounding [facility] 12-15-2022 16:26-0500 Promise to Return [facility] 12-15-2022 15:34-0500 Heart rate 67 /min [facility] 12-15-2022 15:34-0500 SaO2% (BldA) [Mass fraction] 95 % [facility] 12-15-2022 15:34-0500 Body temperature 97.52 [degF] [facility] 12-15-2022 15:33-0500 Diastolic blood pressure 77 mm[Hg] [facility] 12-15-2022 15:33-0500 Mean blood pressure 89 mm[Hg] [facility] 12-15-2022 15:33-0500 Systolic blood pressure 112 mm[Hg] [facility] 12-15-2022 11:45-0500 Heart rate 66 /min [facility] 12-15-2022 11:45-0500 SaO2% (BldA) [Mass fraction] 97 % [facility] 12-15-2022 11:44-0500 Body temperature 98.06 [degF] [facility] 12-15-2022 11:44-0500 Mean blood pressure 83 mm[Hg] [facility] 12-15-2022 08:59-0500 Heart rate 74 /min [facility] 12-15-2022 00:27-0500 Blood Pressure Location [facility] 12-15-2022 00:27-0500 Respiratory rate 16 /min [facility] 12-14-2022 20:22-0500 gluc 159 mg/dL [facility] 12-14-2022 16:27-0500 gluc 128 mg/dL [facility] 12-14-2022 16:00-0500 Body temperature 97.7 [degF] [facility] 12-14-2022 11:50-0500 gluc 109 mg/dL [facility] 12-14-2022 08:44-0500 Heart rate 66 /min [facility] 12-14-2022 00:55-0500 Blood Pressure Location [facility] 12-14-2022 00:55-0500 Mean blood pressure 89 mm[Hg] [facility] 12-14-2022 00:55-0500 Respiratory rate 18 /min [facility] 12-13-2022 09:51-0500 Heart rate 70 /min [facility] 12-13-2022 09:00-0500 Body temperature 98.06 [degF] [facility] 12-13-2022 09:00-0500 Heart rate 64 /min [facility] 12-13-2022 04:24-0500 Blood Pressure Location [facility] 12-13-2022 01:36-0500 Mean blood pressure 85 mm[Hg] [facility] 12-13-2022 00:00-0500 Body temperature 97.34 [degF] [facility] 12-13-2022 00:00-0500 Heart rate 67 /min [facility] 12-12-2022 22:07-0500 Respiratory rate 25 /min [facility] 12-12-2022 21:00-0500 Respiratory rate 30 /min [facility] 12-12-2022 20:04-0500 Respiratory rate 27 /min Alaa ALAHMAD [facility] 12-12-2022 19:02-0500 Heart rate 69 /min [facility] 12-07-2022 18:33-0500 Body height 167.6 cm Lakia Reza DO Work Phone: [employer] 12-07-2022 18:33-0500 Body mass index (BMI) [Ratio] 43.58 kg/m2 Lakia Reza DO Work Phone: [employer] 12-07-2022 18:33-0500 Body temperature 98.01 [degF] Lakia Reza DO Work Phone: [employer] 12-07-2022 18:33-0500 Body weight 122.47 kg Lakia Reza DO Work Phone: [employer] 12-07-2022 18:33-0500 Diastolic blood pressure 84 mm[Hg] Lakia Reza DO Work Phone: [employer] 12-07-2022 18:33-0500 Heart rate 79 /min Lakia Reza DO Work Phone: [employer] 12-07-2022 18:33-0500 Respiratory rate 20 /min Lakia Reza DO Work Phone: [employer] 12-07-2022 18:33-0500 SaO2% (BldA) [Mass fraction] 94 % Lakia Reza DO Work Phone: [employer] 12-07-2022 18:33-0500 Systolic blood pressure 162 mm[Hg] Lakia Maier DO Work Phone: [employer] 06-30-2022 08:17-0400 Blood Pressure Location Efrain ESPARZA [facility] 06-30-2022 08:17-0400 Body temperature 98.06 [degF] Efrain ESPARZA [facility] 06-30-2022 08:17-0400 Diastolic blood pressure 82 mm[Hg] Efrain ESPARZA [facility] 06-30-2022 08:17-0400 Heart rate 61 /min Efrain ESPARZA [facility] 06-30-2022 08:17-0400 SaO2% (BldA) [Mass fraction] 97 % Efrain ESPARZA [facility] 06-30-2022 08:17-0400 Systolic blood pressure 138 mm[Hg] Efrain ESPARZA [facility] 10-02-2021 00:45-0400 Diastolic blood pressure 112 mm[Hg] [facility]rez [facility] 10-02-2021 00:45-0400 SaO2% (BldA) [Mass fraction] 97 % Michael Gutierrez MD Work Phone: [id number] 10-02-2021 00:45-0400 Systolic blood pressure 132 mm[Hg] Michael Gutierrez MD Work Phone: [email or web address] 10-02-2021 00:13-0400 Body mass index (BMI) [Ratio] 41.16 kg/m2 Michael Gutierrez MD Work Phone: [email or web address] 10-02-2021 00:13-0400 Body temperature 97.3 [degF] Michael Gutierrez MD Work Phone: [email or web address] 10-02-2021 00:13-0400 Body weight 115.67 kg Michael Gutierrez MD Work Phone: [id number] 10-02-2021 00:13-0400 Heart rate 71 /min Michael Gutierrez MD Work Phone: [email or web address] 10-02-2021 00:13-0400 Respiratory rate 16 /min Michael Gutierrez MD Work Phone: [email or web address] 06-11-2021 08:35-0400 Body mass index (BMI) [Ratio] 40.35 kg/m2 Xena Andrews MD Work Phone: [id number] Work Phone: 06-11-2021 08:35-0400 Body temperature 98.6 [degF] Xena Andrews MD Work Phone: [id number] Work Phone: 06-11-2021 08:35-0400 Body weight 113.4 kg Xena Andrews MD Work Phone: [id number] Work Phone: 06-11-2021 08:35-0400 Diastolic blood pressure 63 mm[Hg] Xena Andrews MD Work Phone: [id number] Work Phone: 06-11-2021 08:35-0400 Heart rate 66 /min Xena Andrews MD Work Phone: [id number] Work Phone: 06-11-2021 08:35-0400 Respiratory rate 18 /min Xena Andrews MD Work Phone: [id number] Work Phone: 06-11-2021 08:35-0400 SaO2% (BldA) [Mass fraction] 95 % Xena Andrews MD Work Phone: [id number] Work Phone: 06-11-2021 08:35-0400 Systolic blood pressure 164 mm[Hg] Xena Andrews MD Work Phone: [id number] Work Phone: 03-08-2021 11:43-0400 BMI (Body Mass Index) 40.35 kg/m2 [employer] Work Phone: 03-08-2021 11:43-0400 Body Temperature 98.29 [degF] [employer] Work Phone: 03-08-2021 11:43-0400 Body weight 113.4 kg [employer] Work Phone: 03-08-2021 11:43-0400 BP Diastolic 74 mm[Hg] [employer] Work Phone: 03-08-2021 11:43-0400 BP Systolic 164 mm[Hg] [employer] Work Phone: 03-08-2021 11:43-0400 Height 167.6 cm [employer] Work Phone: 03-08-2021 11:43-0400 Pulse (Heart Rate) 83 /min [employer] Work Phone: 03-08-2021 11:43-0400 Pulse Oximetry 95 % [employer] Work Phone: 03-08-2021 11:43-0400 Respiratory Rate 20 /min [employer] Phone: Encounters Encounter Date Encounter Type Care Provider Facility Start: 11-04-2024 End: 11-04-2024 Telephone encounter Ben Lucas [employer] INVESTIGATOR Work Phone: [facility] Start: 10-21-2024 End: 10-21-2024 Patient encounter procedure Keena Mcguire DO Work Phone: [facility] Comment on above: Bilateral carpal petr fifi syndrome (Primary Dx) Start: 10-21-2024 End: 10-21-2024 ambulatory KEENA MCGUIER Not Available Start: 10-21-2024 End: 10-21-2024 ambulatory KEENA MCGUIRE Not Available Start: 09-28-2024 End: 09-28-2024 Telephone encounter Ben Lucas DIGITAL FORENSICS INVESTIGATOR Work Phone: [facility] Start: 09-07-2024 End: 09-07-2024 Telephone encounter Ben Lucas DIGITAL FORENSICS INVESTIGATOR Work Phone: [facility] Start: 08-02-2024 End: 08-02-2024 Telephone encounter Ben Lucas DIGITAL FORENSICS INVESTIGATOR Work Phone: [facility] Start: 07-29-2024 End: 07-29-2024 Clinisync Result Encounter Aquilino Meyer MD Work Phone: [facility] Unsolicited Start: 07-29-2024 End: 07-29-2024 Clinisync Result Encounter Aquilino Meyer MD Work Phone: [facility] Unsolicited Start: 01-03-2024 End: 01-03-2024 Patient encounter procedure Keena Mcguire DO Work Phone: [facility] Comment on above: Bilateral carpal petr fifi syndrome (Primary Dx); Left hip pain Start: 01-03-2024 End: 01-03-2024 ambulatory KEENA MCGUIRE Not Available Start: 12-03-2023 End: 12-06-2023 ambulatory [facility] Start: 09-06-2023 End: 09-09-2023 ambulatory [facility] Start: 03-05-2023 End: 03-05-[address] AQUILINO MEYER Facility:[facility] Start: 02-28-2023 End: 02-28-[address] AQUILINO MEYER Facility:[facility] Start: 02-23-2023 End: 02-23-2023 ambulatory BEN LUCAS Facility:[facility] Start: 01-29-2023 End: 01-29-[address] AQUILINO MEYER Facility:[facility] Start: 01-26-2023 End: 01-26-2023 ambulatory DIMITRIOS Fenton Facility:[facility] Start: 01-15-2023 ambulatory Efrain ESPARZA Facility: [facility] Start: 12-16-2022 End: 12-26-2022 Evaluation and management of inpatient [facility] Start: 12-16-2022 End: 12-26-2022 Evaluation and management of inpatient Андрей Rodriguez MD Work Phone: [facility] Comment on above: Closed fracture of r ight ankle, initial encounter (Primary Dx) Start: 12-12-2022 End: 12-15-2022 Observation David WHITEHEAD [facility] Start: 12-07-2022 End: 12-07-2022 Emergency department patient visit [facility] Start: 12-07-2022 End: 12-07-2022 Emergency department patient visit [facility] Work Phone: [facility] ED Comment on above: Closed fracture of d istal end of right fibula, unspecified fracture morphology, initial encounter (Primary Dx) Start: 09-28-2022 End: 09-28-2022 Patient encounter procedure Efrain ESPARZA [facility] Start: 08-08-2022 End: 08-10-2022 Subsequent hospital visit by physician [facility] Echo Room [facility] ECHO Comment on above: Aortic valve stenosi s, etiology of cardiac valve disease unspecified Atrial fibrillation, unspecified type (HCC); Essential hypertension; 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; Hyperlipidemia, unspecified hyperlipidemia type; Ischemic cardiomyopathy; Vitamin D deficiency disease; Mitral valve insufficiency, unspecified etiology Start: 07-25-2022 End: 07-25-2022 Patient encounter procedure MERISSA DONALD [facility] Start: 06-30-2022 End: 06-30-2022 Patient encounter procedure Efrain ESPARZA [facility] Start: 06-19-2022 End: 06-19-2022 Patient encounter procedure Efrain ESPARZA [facility] Start: 05-22-2022 End: 08-20-2022 Brett HIGH [facility] Start: 05-03-2022 End: 05-05-2022 Subsequent hospital visit by physician Cesar Additional Xray At [facility] Radiology Comment on above: Pain in both wrists Start: 05-03-2022 End: 05-03-2022 Patient encounter procedure Efrain ESPARZA [facility] Start: 05-03-2022 End: 05-05-2022 Subsequent hospital visit by physician Efrain Esparza MD Work Phone: [facility] Start: 11-07-2021 End: 11-07-2021 Subsequent hospital visit by physician Berkley Garza [facility] Therapy Comment on above: Arrived Start: 10-02-2021 End: 10-02-2021 Emergency department patient visit Michael Gutierrez MD Work Phone: [facility] ED Comment on above: Contusion of ribs, r ight, initial encounter (Primary Dx); Contusion of thoracic spine; Contusion of lower back, initial encounter Start: 09-12-2021 End: 09-14-2021 Subsequent hospital visit by physician Cesar Echo Room [facility] ECHO Comment on above: Mitral valve insuffi ciency, unspecified etiology Atrial fibrillation, unspecified type (HCC); 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; Essential hypertension; Hyperlipidemia, unspecified hyperlipidemia type; Ischemic cardiomyopathy; Vitamin D deficiency disease Start: 06-15-2021 End: 06-17-2021 Subsequent hospital visit by physician Efrain Esparza MD Work Phone: [facility] Start: 06-13-2021 End: 06-15-2021 Subsequent hospital visit by physician Cesar [facility] Vascular Lab Comment on above: Pain of left calf Start: 06-11-2021 End: 06-11-2021 Emergency department patient visit Xena Andrews MD Work Phone: [facility] ED Comment on above: Pain in left hip (Pr imary Dx); Pain of left calf; Essential hypertension; Osteoarthritis of left hip, unspecified osteoarthritis type Start: 06-09-2021 End: 06-11-2021 Subsequent hospital visit by physician Cesar Additional Xray At [facility] Radiology Comment on above: Paresthesia Start: 03-08-2021 End: 03-08-2021 Emergency department patient visit King Frazier Work Phone: [facility] ED Comment on above: Injury of head, init ial encounter (Primary Dx) Start: 02-08-2021 End: 05-15-2022 Recurring HOLLY FARFAN [facility] Start: 02-02-2021 End: 02-04-2021 Subsequent hospital visit by physician Ian Mri [facility] MRI Comment on above: Left leg weakness; Lumbosacral radiculopathy; Has numbness Start: 10-06-2020 End: 10-08-2020 Subsequent hospital visit by physician Cesar Additional Xray At [facility] Radiology Comment on above: Primary osteoarthrit is of right knee Start: 10-06-2020 End: 10-08-2020 Subsequent hospital visit by physician Efrain Esparza [facility] Start: 09-24-2020 End: 09-26-2020 Subsequent hospital visit by physician Cesar [facility] Vascular Lab Comment on above: Bruit Start: 09-13-2020 End: 09-15-2020 Subsequent hospital visit by physician Cesar Echo Room [facility] RESPIRATORY THERAPY Comment on above: Atrial fibrillation, unspecified type (HCC); 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; Essential hypertension Ischemic cardiomyopa thy Atrial fibrillation, unspecified type (HCC); 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; Essential hypertension; Hyperlipidemia, unspecified hyperlipidemia type; Vitamin D deficiency disease Start: 10-27-2019 End: 10-27-2019 Subsequent hospital visit by physician Efrain OJEDA Laboratory Comment on above: Chronic systolic con gestive heart failure (HCC); Dyslipidemia; Vitamin D deficiency disease; Hypertension, unspecified type Procedures Date Procedure Procedure Detail Performing Clinician Start: 10-21-2024 Arthrocentesis aspir &/inj interm jt/burs w/us Keena Mcguire DO Work Phone: Start: 10-21-2024 End: 10-21-2024 Radex wrist complete minimum 3 views Keena Mcguire DO Work Phone: Start: 07-29-2024 [facility] UA (CLEAN/CATCH) NOZZLE WORKER/MICRO IF IND. Aquilino Meyer MD Work Phone: Start: 01-03-2024 Arthrocentesis aspir &/inj interm jt/burs [...] Start: 08-08-2022 Comprehensive metabo lic panel Emiliano Leal MD Work Phone: Start: 08-08-2022 Lipid panel Emiliano miller MD Work Phone: Start: 08-08-2022 PATIENT FASTING? Emiliano Leal MD Work Phone: Start: 08-08-2022 Radiologic exam ches t 2 views Emiliano Leal MD Work Phone: Start: 05-03-2022 End: 05-03-2022 Radex wrist complete minimum 3 views Keena Mcguire DO Work Phone: Start: 11-23-2021 Injection of hip usi ng fluoroscopic guidance Efrain ESPARZA Comment on above: Left hip injection-1 00% relief Start: 10-02-2021 End: 10-02-2021 Radex spine thoracic 3 views Michael Gutierrez MD Work Phone: Start: 09-12-2021 Ecg routine ecg w/le ast 12 lds w/i&r Emiliano Leal MD Work Phone: Start: 09-12-2021 Comprehensive metabo lic panel Emiliano Leal MD Work Phone: Start: 09-12-2021 Lipid panel Emiliano miller MD Work Phone: Start: 09-12-2021 PATIENT FASTING? Emiliano Leal MD Work Phone: Start: 09-12-2021 Radiologic exam ches t 2 views Emiliano Leal MD Work Phone: Start: 08-08-2021 Injection of [...] Radiologic exam ches t 2 views Emiliano Leal Work Phone: Start: 09-13-2020 25 hydroxy includes fractions if performed Emiliano Leal Work Phone: Start: 09-13-2020 Assay of magnesium Emiliano Leal Work Phone: Start: 09-13-2020 Assay of thyroid stimulating hormone tsh Emiliano Leal Work Phone: Start: 09-13-2020 Blood count complete auto&auto difrntl wbc Emiliano Leal Work Phone: Start: 09-13-2020 Comprehensive metabo lic panel Emiliano Leal Work Phone: Start: 09-13-2020 Lipid panel Emiliano miller Work Phone: Start: 09-13-2020 PATIENT FASTING? Emiliano Leal Work Phone: Start: 10-27-2019 25 hydroxy includes fractions if performed Emiliano Leal Work Phone: Start: 10-27-2019 Assay of magnesium Emiliano Leal Work Phone: Start: 10-27-2019 Assay of thyroid stimulating hormone tsh Emiliano Leal Work Phone: Start: 10-27-2019 Blood count complete auto&auto difrntl wbc Emiliano Leal Work Phone: Start: 10-27-2019 Comprehensive metabo lic panel Emiliano Leal Work Phone: Start: 10-27-2019 Lipid panel Emiliano miller Work Phone: Start: 10-27-2019 PATIENT FASTING? Emiliano Leal Work Phone: Start: 11-06-2016 Injection of facet [...] DTaP/Tdap/Td vaccine (2 - Td or Tdap) [facility] Start: 08-27-2030 DTaP/Tdap/Td vaccine (2 - Td) DTaP/Tdap/Td vaccine (2 - Td) [facility] Work Phone: Start: 01-20-2025 End: 01-20-2025 Patient encounter procedure 01/20/2025 1:30 PM EST [facility] [address] [id number] Keena Mcguire DO [address] [place] [address] [facility] Start: 07-27-2024 Influenza vaccination Influenza Vacc ine (#1) [facility] Start: 09-13-2023 End: 09-13-2023 Patient encounter procedure 09/13/2023 Office Visit Cardiology Emiliano Leal MD [address] [id number] [facility] [employer] Start: 08-08-2023 Lipid panel Lipids [facility] Start: 07-27-2023 Influenza vaccination Influenza Vacc ine (#1) [facility] Start: 09-14-2022 End: 09-14-2022 Patient encounter procedure 09/14/2022 Office Visit Cardiology Emiliano Leal MD [address] [place] [address] [facility] [employer] Start: 09-12-2022 Creatinine measurement Creatinine mo [facility] Start: 09-12-2022 Lipid panel [facility] Start: 09-12-2022 Potassium monitoring Potassium monit oring [facility] Start: 07-27-2022 Influenza vaccination Flu vaccine (# 1) [facility] Start: 12-22-2021 COVID-19 Vaccine (4 - Booster for Pfizer series) COVID-19 Vaccine (4 - Booster for Pfizer series) [facility] Start: 11-17-2021 End: 11-17-2021 Patient encounter procedure 11/17/2021 Appointment Physical Therapy Capucini-Krumnow, Shanita L, PT [facility] Start: 11-15-2021 End: 11-15-2021 Patient encounter procedure 11/15/2021 Appointment Physical Therapy Shanita Henry, PT [facility] Start: 11-10-2021 End: 11-10-2021 Patient encounter procedure 11/10/2021 Appointment Physical Therapy Shanita Henry, PT [facility] Start: 09-19-2021 End: 09-19-2021 Office Visit 09/19/2021 Office Visit Cardiology Emiliano Leal MD [address] [place] [address] [facility] [employer] Start: 09-13-2021 Creatinine measurement Creatinine mo [place], [place] Start: 09-13-2021 Lipid panel Lipid screen [place], [place] Start: 09-13-2021 Potassium monitoring Potassium monit [place], [place] Start: 07-27-2021 Influenza vaccination Flu vaccine (# 1) [employer] Phone: Start: 06-13-2021 End: 07-12-2021 VL DUP LOWER EXTREMITY VENOUS LEFT VL DUP LOWER EXTREMITY VENOUS LEFT Imaging Routine Pain of left calf Expected: 06/13/2021, Expires: 07/12/2021 [employer] Phone: Comment on above: Expected: 06/13/2021 , Expires: 07/12/2021 Start: 10-27-2020 Creatinine measurement Creatinine mo [place], [place] Start: 10-27-2020 Lipid panel Lipid screen [place], [place] Start: 10-27-2020 Potassium monitoring Potassium monit [place], [place] Start: 10-22-2020 Shingles Vaccine (2 of 2) Shingles Vaccine (2 of 2) [facility] [employer] Start: 09-20-2020 End: 09-20-2020 Office Visit 09/20/2020 Office Visit Cardiology Emiliano Leal MD [address] [place] [address] [facility] [employer] Start: 07-27-2020 Influenza vaccination Flu vaccine (# 1) [place], [place] Start: 06-27-2020 Creatinine monitoring Creatinine mon itoring [place], [place] Start: 06-27-2020 Lipid screen Lipid screen [place], [place] Start: 06-27-2020 Potassium monitoring Potassium monit [place]ing [place] Start: 11-04-2019 End: 11-04-2019 Office Visit 11/04/2019 Office Visit Cardiology Emiliano Leal MD [address] [place] [address] [phone] [facility] [employer] Start: 07-27-2019 Influenza vaccination Flu vaccine (# 1) [place], [place] Start: 05-18-2019 Annual Wellness Visi t (AWV) Annual Wellness Visit (AWV) [facility] Start: 2002 DEXA (modify frequen cy per FRAX score) DEXA (modify frequency per FRAX score) [place], [place] Start: 2002 Pneumococcal 65+ yea rs Vaccine (1 of 1 - PPSV23) Pneumococcal 65+ years Vaccine (1 of 1 - PPSV23) [place], [place] Start: 2002 Pneumococcal 65+ yea rs Vaccine (2 of 2 - PPSV23) Pneumococcal 65+ years Vaccine (2 of 2 - PPSV23) [facility] Work Phone: Start: 1992 Screening for osteoporosis DEXA (modify frequency per FRAX score) [facility] Start: 1987 Shingles Vaccine (1 of 2) Shingles Vaccine (1 of 2) [place], [place] Start: 1956 DTaP/Tdap/Td vaccine (1 - Tdap) DTaP/Tdap/Td vaccine (1 - Tdap) [place], [place] Start: 1953 COVID-19 Vaccine (1 of 2) COVID-19 Vaccine (1 of 2) [facility] Work Phone: Start: 1953 COVID-19 Vaccine (1) COVID-19 Vaccin e (1) [employer] Phone: Start: 1949 COVID-19 Vaccine (1) COVID-19 Vaccin e (1) [employer] Phone: Start: 1949 Depression Screen Depression Screen [employer] Start: 1948 DTaP/Tdap/Td vaccine (1 - Tdap) DTaP/Tdap/Td vaccine (1 - Tdap) [employer] [place] Start: 1937 Annual Wellness Visi t (AWV) Annual Wellness Visit (AWV) [employer] Dup-scan xtr veins complete bilateral study VASCULAR REPORT Imaging Ordered: 06/14/2021 [employer] Phone: Comment on above: Ordered: 06/14/2021 End: 09-13-2020 ECHO Complete 2D W Doppler W Color ECHO Complete 2D W Doppler W Color Echocardiography Routine Ischemic cardiomyopathy 1 Occurrences starting 09/13/2020 until 09/13/2020 [employer] [place] Comment on above: 1 Occurrences starti ng 09/13/2020 until 09/13/2020 End: 09-12-2021 ECHO Complete 2D W Doppler W Color ECHO Complete 2D W Doppler W Color Echocardiography Routine Mitral valve insufficiency, unspecified etiology 1 Occurrences starting 09/12/2021 until 09/12/2021 [employer] Phone: Comment on above: 1 Occurrences starti ng 09/12/2021 until 09/12/2021 End: 08-08-2022 ECHO Complete 2D W Doppler W Color ECHO Complete 2D W Doppler W Color Echocardiography Routine Aortic valve stenosis, etiology of cardiac valve disease unspecified 1 Occurrences starting 08/08/2022 until 08/08/2022 [facility] [employer] Phone: Comment on above: 1 Occurrences starti ng 08/08/2022 until 08/08/2022 EKG 12 Lead [id number] [place] End: 09-24-2020 VL DUP CAROTID BILATERAL VL DUP CAROTID BILATERAL Imaging Routine Bruit 1 Occurrences starting 09/24/2020 until 09/24/2020 [employer] Comment on above: 1 Occurrences starti ng 09/24/2020 until 09/24/2020 VL DUP CAROTID BILATERAL VL DUP CAROTID BILATERAL Imaging Routine Bruit 09/24/2020 3:28 PM EDT [employer] [place] XR Hip - left 3 Views XR hip lef t 2 or 3 views Imaging Routine Left hip pain 01/03/2024 12:50 PM [employer] Work Phone: End: 10-02-2021 XR RIBS RIGHT INCLUDE CHEST (MIN 3 VIEWS) XR RIBS RIGHT INCLUDE CHEST (MIN 3 VIEWS) Imaging Routine Once for 1 Occurrences starting 10/02/2021 until 10/02/2021 [id number] Work Phone: Comment on above: Once for 1 Occurrenc es starting 10/02/2021 until 10/02/2021 XR RIBS RIGHT INCLUD E CHEST (MIN 3 VIEWS) XR RIBS RIGHT INCLUDE CHEST (MIN 3 VIEWS) Imaging STAT 10/02/2021 1:29 AM EDT [id number] Work Phone: XR Wrist - left 3 Views XR wrist 3+ views left Imaging Routine Bilateral carpal tunnel syndrome 10/21/2024 12:44 PM EST Bactest XR Wrist - right 3 Views XR wrist 3+ views right Imaging Routine Bilateral carpal tunnel syndrome 10/21/2024 12:44 PM [employer] Work Phone: Immunizations Immunization Date Immunization Notes Care Provider Fa lily 09-14-2022 SARS-CoV-2 (COVID-19 ) [id number] [facility] 09-06-2022 influenza virus vacc ine, unspecified formulation [facility] 09-13-2021 influenza virus vacc ine, unspecified formulation [facility] Comment on above: Result Comment: [facility] 08-22-2021 SARS-CoV-2 (COVID-19 ) mRNA BNT-162b2 vax [facility] Comment on above: Result Comment: Julissa Garcia 01-21-2021 SARS-CoV-2 (COVID-19 ) mRNA BNT-162b2 vax Efrain Oriense [facility] Comment on above: Result Comment: Brittany Pinon 12-31-2020 SARS-CoV-2 (COVID-19 ) mRNA BNT-162b2 vax Efrain ESPARZA [facility] Comment on above: Result Comment: Brittany Pinon 08-27-2020 influenza virus vacc ine, unspecified formulation Efrain ESPARZA [facility] 08-27-2020 tetanus toxoid, redu desiree diphtheria toxoid, and acellular pertussis vaccine, adsorbed Efrain ESPARZA [facility] 08-27-2020 zoster vaccine recombinant Efrain ESPARZA [facility] 09-04-2019 influenza virus vacc ine, unspecified formulation Efrain ESPARZA [facility] 08-26-2019 influenza virus vacc ine, unspecified formulation Efrain ESPARZA [facility] 08-26-2018 influenza virus vacc ine, unspecified formulation Efrain ESPARZA [facility] 08-27-2017 influenza virus vacc ine, unspecified formulation Efarin [facility] 10-11-2016 pneumococcal polysaccharide vaccine, 23 valent Efrain ESPARZA [facility] 08-29-2016 influenza virus vacc ine, unspecified formulation Efrain ESPARZA [facility] 08-29-2016 pneumococcal conjuga te vaccine, 13 valent Efrain ESPARZA [facility] 08-28-2016 pneumococcal conjuga te vaccine, 13 valent Efrain ESPARZA [facility] 08-27-2013 influenza virus vacc ine, unspecified formulation Efrain ESPARZA [facility] 08-27-2013 pneumococcal polysaccharide vaccine, 23 valent Efrain ESPARZA [facility] Payers Date Payer Category Payer Medicare [employer] E MEDICARE UHC DUAL COMPLETE [id number] 2023-Present [address] [place] [address] [id number] 2023 Medicare (Managed Care) UNITED HEALTHCARE MEDICARE [id number] 2019 Medicaid [id number] 2017 Unknown BCBS [place] - [place] P PO xxxxxxxxxxxx 2017-Present [address] [place] [address] xxxxxxxxxxxx [id number] 2014 Medicaid [id number] 2014 Medicare MEDICARE MEDICAR E PART A AND B xxxxxxxxxxx 2014-Present [phone] [address] [address] [place] [address] xxxxxxxxxxx [id number] 2014 Medicare [id number] 2014 Medicare [id number] 1959 Medicaid [id number] 1935 Unknown [id number] 2.16.840.1.524017.3.579.2.5 93 1937 Unknown [id number] 2.16840.1.060216.3.579.2.5 93 1937 Unknown [id number] 2.16840.1.213190.3.579.2.5 93 1937 Unknown [id number] 2.16840.1.908668.3.579.2.5 93 1937 Unknown [id number] 2.16840.1.513463.3.579.2.5 93 1937 Unknown [id number] 2.16.840.1.789743.3.579.2.1 74 1937 Unknown [id number] 2.16.840.1.584160.3.579.2.1 74 1937 Unknown [id number] 2.16.840.1.400955.3.579.2.1 74 1937 Unknown [id number] 2.16.840.1.361617.3.579.2.1 74 1937 Unknown [id number] 2.16.840.1.081876.3.579.2.1 74 1937 Unknown [id number] 2.16.840.1.039233.3.579.2.1 74 1937 Unknown [id number] 2.16.840.1.045669.3.579.2.1 74 1937 Unknown [id number] 2.16.840.1.442796.3.579.2.7 27 1937 Unknown [id number] 2.16.840.1.937558.3.579.2.1 259 1937 Unknown [id number] 2.16.840.1.018151.3.579.2.1 259 1937 Unknown [id number] 2.16.840.1.915154.3.579.2.1 259 1937 Unknown [id number] 2.16.840.1.727341.3.579.2.1 259 1937 Unknown [id number] 2.16.840.1.980219.3.579.2.1 259 Social History Date Type Detail Facility Start: 06-30-2019 End: 09-14-2022 Tobacco smoking status NHIS Former smoker [place], [place] History of tobacco use Cigarette Smoker [place], [place] Start: 1935 Sex Assigned At Not on file [place] Start: 11-04-2019 End: 08-24-2023 Tobacco use and exposure Never used [place] Start: 11-27-2022 End: 12-16-2022 Exposure to SARS-CoV-2 (event) Not sure [facility] Work Phone: Start: 06-11-2021 End: 12-16-2022 Alcohol intake Ex-drinker (finding) [id number] Work Phone: Start: 01-03-2024 End: 10-21-2024 Sex Assigned At Female [facility] Tobacco smoking status Never [facility] History of tobacco use [facility] [employer] Work Phone: Start: 10-31-2022 History SDOH Alcohol Frequency 1 [employer] [facility] [employer] Work Phone: Start: 10-31-2022 History SDOH Alcohol Std Drinks 0 [employer] [facility] Work Phone: Tobacco [facility] Comment on above: denies Tobacco smoking status No Smokin g Status Entered [facility] Start: 08-24-2023 Tobacco smoking stat [facility] Never smoked tobacco [facility] Start: 01-03-2024 End: 10-21-2024 History of Social function [facility] Functional Status Date Assessment Result Facility 12-12-2022 Functional Status No [facility] 12-12-2022 Functional Status [facility] 06-30-2022 Functional Status N/A [facility] Clinical Notes 06-11-2021 to 11-04-2024 Telephone Encounter - Ben Lucas NP - 11/04/2024 10:23 AM ESTTelephone Encounter - Ben Lucas NP - 11/04/2024 10:23 AM Maggi Ahuja MA - 10/21/2024 2:45 PM ESTDischarge Instructions Note Date & Type Note Facility 11-04-2024 Telephone encounter Note Requested Prescriptions Signed Prescriptions Disp Refills oxyCODONE-acetaminophen (Percocet) 10-325 MG tablet 120 tablet 0 Sig: Take 1 tablet by mouth every 6 (six) hours Authorizing Provider: BEN LUCAS [facility] patient [facility] 11-04-2024 Miscellaneous Notes Requested Prescriptions Signed Prescriptions Disp Refills oxyCODONE-acetaminophen (Percocet) 10-325 MG tablet 120 tablet 0 Sig: Take 1 tablet by mouth every 6 (six) hours Authorizing Provider: BEN LUCAS [facility] patient documented in this encounter [facility] 10-21-2024 History of Present illness Narrative Associated Order(s): M Inj/Asp: bilateral radiocarpal Post-Procedure Diagnose(s): Bilateral carpal tunnel syndrome M Inj/Asp: bilateral radiocarpal on 10/21/2024 3:07 PM Indications: pain Details: 25 G needle, ultrasound-guided anterolateral approach Medications (Right): 6 mg betamethasone acetate-betamethasone sodium phosphate 6 (3-3) MG/ML Medications (Left): 6 mg betamethasone acetate-betamethasone sodium phosphate 6 (3-3) MG/ML Procedure, treatment alternatives, risks and benefits explained, specific risks discussed. Consent was given by the patient. Immediately prior to procedure a time out was called to verify the correct patient, procedure, equipment, application support administrator and site/side marked as required. Patient was prepped and draped in the usual sterile fashion. Images from the original note were not included. Aleena Rudolph is a 89 y.o. female presents with chief complaint of bilateral hand pain, numbness and tingling. HPI: Aleena is here from the local rehab center. She is requesting cortisone injections for her carpal tunnel. She has been doing Neurontin. She has tried splinting in the past. The last injection was in December which was quite helpful. Daughter is present today. No new falls, traumas or injuries reported. She does utilize a wheelchair which compounds this. Medical history is concerning for any form of surgical intervention. SUBJECTIVE: MEDICATIONS: Current Outpatient Medications Medication Instructions alpha tocopherol (Vitamin E) 400 units capsule 1 capsule, Every 24 hours aspirin 81 mg atorvastatin (LIPITOR) 20 mg, Daily bisacodyl (DULCOLAX) 10 mg, Daily bumetanide (Bumex) 1 MG tablet cholecalciferol (D3-5) 5,000 Units, Daily Cranberry 400 MG capsule Every 8 hours Dextromethorphan-guaiFENesin 10-100 MG/5ML liquid 5 mL Docusate Sodium (DSS) 100 MG capsule 1 capsule, Daily DULoxetine (CYMBALTA) 60 mg, Daily gabapentin (NEURONTIN) 100 mg Humira 40 MG/0.8ML Prefilled Syringe Kit prefilled syringe inject 40 milligram (1 SYRINGE) subcutaneously every OTHER WEEK ipratropium-albuterol (Duo-Neb) 0.5-2.5 mg/3 mL nebulizer solution levoFLOXacin (Levaquin) 500 MG tablet levothyroxine (SYNTHROID, LEVOXYL) 50 mcg, Daily lisinopril 20 mg, 2 times daily loperamide (IMODIUM) 2 mg methenamine hippurate (Hiprex) 1 g tablet metoprolol succinate XL (TOPROL-XL) 200 mg metoprolol tartrate (LOPRESSOR) 100 mg nystatin (Mycostatin) 905440 UNIT/GM powder omeprazole (PriLOSEC) [address] capsule ondansetron (Zofran) 4 MG tablet oxyCODONE-acetaminophen (Percocet) 10-325 MG tablet 1 tablet, Oral, Every 6 hours potassium chloride CR (Klor-Con M20) 20 MEQ ER tablet Simlandi, 1 Pen, 40 MG/0.4ML Auto-injector Kit spironolactone (ALDACTONE) 25 mg triamcinolone (Kenalog) 0.1 % cream ALLERGIES: No Known Allergies SURGICAL HISTORY: History reviewed. No pertinent surgical history. FAMILY HISTORY: No family history on file. SOCIAL HISTORY: Social History Tobacco Use Smoking status: Never Smokeless tobacco: Never Depression: Not on file REVIEW OF SYMPTOMS: The review of systems, history and current medications list are all reviewed today. OBJECTIVE: Visit Vitals Ht 5' 6 Wt 235 lb BMI 37.93 kg/m Smoking Status Never BSA 2.23 m Physical Exam On physical exam, she is alert and oriented. Vital signs are stable. The bilateral legs have mild to moderate swelling. There is no rash or infection, no ulceration or deep venous thrombosis. There is moderate to severe restriction of the left hip. Pain is moderate through testing. Carpal tunnel exam is positive with Tinel's and Phalen's with median nerve dysesthesias. Ulnar nerve testing of the wrist and elbow is negative. Shoulder exam is stable. Three view x-rays taken of each, AP, lateral and oblique views, show mild to moderate degenerative changes of the basilar thumb joint. There is some demineralization with osteoporosis. There is no acute fracture or dislocation seen. Basilar thumb degenerative changes are present. These are of both wrists, saved to the permanent record in the [place] office today. ASSESSMENT AND PLAN: Assessment/Plan Bilateral carpal tunnel syndrome; underlying osteoarthritis; demineralization with osteoporosis. The nature of the findings were discussed at length. We discussed night time stretching, bracing, ice, Tylenol and analgesia. With consent from the patient today, 0.5 cc of cortisone (1.5 mg of Betamethasone sodium phosphate/1.5 mg of Betamethasone acetate) with 0.5 cc of 1% plain Lidocaine was injected to the bilateral carpal tunnel under ultrasound guidance. Limited exam identifies the median nerve with increased diameter with swelling. Localized flexor tendons are intact. The needle was captured and saved to the permanent record. She tolerated both injections well under ultrasound guidance, saved to the permanent record. She is aware that she can have up to three injections per year. This is her second. She will keep a close watchful eye. Daughter is present. She is discharged in stable condition. correction paperwork is filled out. The patient was seen and examined. From the time of check in, nurse triage, vital signs, x-ray, x-ray interpretation, review of systems, comprehensive history and physical exam as well as setting up treatment plan and further management took 35 minutes. Cosigned by Keena Mcguire DO at 10/27/2024 6:16 PM EST documented in this encounter [facility] 09-28-2024 Telephone encounter Note Rx for #120 percocet tabs ordered for this [facility] pt. [facility] 09-28-2024 Miscellaneous Notes Rx for #120 percocet tabs ordered for this [facility] pt. documented in this encounter [facility] 09-07-2024 Telephone encounter Note Rx for this [facility] patient is sent for percocet 10/325 mg # 120 tabs. [facility] 09-07-2024 Miscellaneous Notes Rx for this [facility] patient is sent for percocet 10/325 mg # 120 tabs. documented in this encounter [facility] 08-02-2024 Miscellaneous Notes An Rx for norco is sent for this [facility] patient, 30 day supply. documented in this encounter [facility] 08-02-2024 Telephone encounter Note An Rx for norco is sent for this [facility] patient, 30 day supply. [facility] 01-03-2024 History of Present illness Narrative Associated [...] by the patient. documented in this encounter [facility] 12-26-2022 History of Present illness Narrative Pt leaves via [facility] transport. Daughter to follow to [facility]. Report called to nurse Jimenez at [facility]. Images from the original note were not included. [facility] Inpatient Discharge Medication Education Note Patient [...] questions. Justin Swain PharmD 12/26/2022 10:11 AM MALI received message from [facility] this morning that insurance approval has been received. MALI spoke with pt's dtr Osbaldo and they are not able to transport today. MALI arranged wheelchair van transport for 12- 1230 pm bead picker. Nursing and Osbaldo notified of time. [...] Bowels moving and no trouble urinating. Awaiting [facility] approval for DC. Diet: ADULT DIET; [...] get herself washed up at this time. Hot Metal Mixer Operator assisted with cee care and washed her back. Clothes changed and new brief applied. Assisted patient back to recliner. Patient has no further needs at this time, will continue to monitor. States nausea is better. I think I was just tired . States she is able to take her vitamin E capsule. MALI called to [facility] to see if insurance precert had been authorized and they have not had received precert as of yet. MALI faxed updates to [facility] and provided phone number to the floor in case they would receive precert later in the day. MALI following. Anny HORVATH 12/25/2022 [facility] Occupational Therapy Daily Note Date: 12/25/2022 Patient Name: Aleena Rudolph : 1935 (87 y.o.) Subjective: Patient was [...] no LOB. Short Term Goal 5: N/A Security Rover Goals Time Frame for Security Rover Goals : STG=LTG Call light in reach, [...] are for [facility]. Diet: ADULT DIET; Regular; [...] treatment / therapy. Plan to DC to [facility] when approved by insurance. Differential Diagnosis: - [...] the patient's current medications (including all prescriptions, vtuq-nzx-jhzplwy products, herbals, cannabis / cannabidiol products, vitamin [...] family brings in outside lunch for patient. [facility] Occupational Therapy Daily Note Date: 12/24/2022 Patient Name: Aleena Rudolph : 1935 (87 y.o.) Subjective: Pt in chair sleeping upon arrival Pt is PROGRESSING toward goals and independence of Self Care this treatment session Continue to assess Pending Progress Objective ADL Equipment Provided: Math Instructor, Sock aid UE Bathing: Modified independent LE [...] no LOB. Short Term Goal 5: N/A Custodial Goals Time Frame for Custodial Goals : STG=LTG Call light in reach, Phone in reach, Use of Gait belt, and Left in chair Time In: 705 Time Out: 740 Timed Coded Minutes: 35 Total Treatment Time: 35 MARIN Franco, OTR/L Date: 12/24/2022 Up from chair and to BR with boot on to RLE. Pt does fairly well. Has small BM. Cee care provided. [facility] Occupational Therapy Daily Note Date: 12/23/2022 Patient Name: Aleena Rudolph : 1935 (87 y.o.) Subjective: Pt in therapy room following PT session. Pt is PROGRESSING toward goals and independence of Self Care this treatment session Continue to assess Pending Progress Objective Sit to stand: Contact guard assistance Stand to sit: Contact guard assistance Assessment Assessment: Pt in therapy room with COOK JELLY upon arrivla. Agreeable to work with OTR. Engaged in THAIS UB exercises/activity this am. Addressed reprint sorter/pinch strength & exercises in all planes of [...] no LOB. Short Term Goal 5: N/A Security Rover Goals Time Frame for Custodial Goals : STG=LTG Call light in reach, Phone in reach, Use of Gait belt, and Left in chair Time In: 740 Time Out: 810 Timed Coded Minutes: 30 Total Treatment Time: 30 MARIN Franco, OTR/L Date: 12/23/2022 MALI met with pt's dtr Merari in pt's room this morning and explained that referral made to [facility] for skilled care and await insurance authorization for her transfer. MALI explained to Merari that this will move her up to first on their list for assisted living if she is in their facility for skilled care. MALI called to [facility] and spoke with Kirsty, as Ben is off today, and she reports that precert has been started and they are just awaiting insurance approval. MALI provided contact number to SW office and to the hospital floor. MALI called and left a message for pt's dtr Osbaldo as well. SW following and await insurance authorization for pt to transfer. Anny Gauthier PILE DRIVER MARKET DEVELOPMENT ANALYST 12/22/2022 MALI spoke with pt's dtr Osbaldo and she is in agreement with plan. Pas ID completed and faxed to facility in case pt would discharge over the weekend if prior auth is received. Anny TRUJILLO MARKET DEVELOPMENT ANALYST 12/22/2022 Hospitalist Progress Note 12/22/2022 12:14 PM [...] -s/p surgical repair by Dr. Mcguire at [facility], continue PT and OT, on Percocet for [...] Anticoagulation Nicholas Rowan MD, MD Rounding Hospitalist [facility] Occupational Therapy Daily Note Date: 12/22/2022 Patient Name: Aleena Rudolph : 1935 (87 y.o.) Subjective: Pt in [...] no LOB. Short Term Goal 5: N/A Security Rover Goals Time Frame for Security Rover Goals : STG=LTG Call light in reach, [...] given for ankle pain, see eMAR. Dr. Leal called and made aware of cardiac consult. Made aware of diaphoresis, dizziness, and chest throbbing yesterday. Made aware of troponin and EKG results. No further orders for now. [facility] Occupational Therapy Plan of Care OT Orders Received and Evaluation Complete Date: 12/21/2022 Patient Name: Aleena Rudolph : 1935 (87 y.o.) Referring Practitioner: Dr. [...] no LOB. Short Term Goal 5: N/A Custodial Goals Time Frame for Security Rover Goals : STG=LTG Delphine Nichols, OTR/L Date: 12/21/2022 [facility] Occupational Therapy Daily Note Date: 12/21/2022 Patient Name: Aleena Rudolph : 1935 (87 y.o.) Subjective: Patient was [...] x5 minutes with SBA and no LOB. Custodial Goals Time Frame for Security Rover Goals : STG=LTG Call light in reach, [...] pain. Therapy evals and notes sent to [facility], per their request, so determination can be made re: placement. Will assist with discharge planning as appropriate. ALEXANDRU Blair 12/21/2022 Swingbed IDT team meeting held this morning regarding pt progress. Swing bed coordinator reports that pt's dtr has contacted [facility] regarding the assisted living and pt could be transferred there as a skilled pt to be in their facility and then transition to assisted living from there. MALI made referral to [facility] and spoke with Ben. Discussed with her [...] faxed information and will await response from [facility]. Anny ROCHAW 12/20/2022 [facility] Occupational Therapy Daily Note Date: 12/20/2022 Patient Name: Aleena Rudolph : 1935 (87 y.o.) Subjective: Patient was [...] x5 minutes with SBA and no LOB. Security Rover Goals Time Frame for Custodial Goals : STG=LTG Call light in reach, Phone in reach, Use of Gait belt, Chair alarm, and Left in chair Time In: 08 Time Out: 923 Timed Coded Minutes: 38 Total Treatment Time: 38 ANTWON Cabrera/Charlotte Date: 12/20/2022 [facility] Swing Bed Interdisciplinary Care Plan Conference Report Recertification for Continued Skilled Care. Patients name:Aleena Rudolph Date of Conference: 12/20/2022 The Following Information was discussed and agreed upon with the patient and/or Caregivers as listed below. Names of Team Members and Caregivers present for meeting: Director External Communications: Lisset Gauthier Nursing: Zack William Therapy: Zack Juarez, PT; Charlotte Ashraf/LEVIR Braze Operator: Reyes Simpson Activities: Amanda Marinelli Pastoral [...] Goal: PO >75% meals and supplements Spiritual: Taoism needs met: [x] Yes [] No [] N/A Notified Drum Drier Operator or Instructor [employer]ence [employer] of admission: [] Yes [] No [x] [...] x5 minutes with SBA and no LOB. Custodial Goals Time Frame for Custodial Goals : STG=LTG Physical Therapy: Transfers: Transfers [...] Goal: Participate in 3 activities per week Director External Communications: Plan for Discharge: Update insurance today. Swing bed coordinator reports that pt's dtr has contacted [facility] regarding the assisted living and pt could be transferred there as a skilled pt to be in their facility and then transition to assisted living from there. Follow Up/Services needed: Referral made to [facility] for continued SNF care, await response. Continued skilled needs: PT/OT Skilled Services are for the ongoing condition for which the individual received inpatient care in a hospital. Physician signature certifies patient continued need for SNF inpatient care. Physical Therapy [facility] Physical Therapy Date: 12/20/2022 Patient Name: Aleena Rudolph : 1935 [x] Pt Refusal Patient in [...] [] Pt Unavailable due to: Мария Lozada, COOK JELLY Date: 12/20/2022 Comprehensive Nutrition Assessment Type and [...] muscle mass loss Fluid Accumulation: Mild Extremities Sponge Clipper Strength: Not Performed Nutrition Assessment: Continued increased [...] Anthropometric Measures: Height: 5' 6 (167.6 cm) [place] Body Weight (IBW): 130 lbs (59 kg) [...] Used for Energy Requirements: Current Energy (kcal/day): 9540-1221 (11-15) Weight Used for Protein Requirements: [place] Protein (g/day): 63-73 (1.2-1.4) Method Used for [...] Discharge Planning: MARTI SIMPSON RD, LD Contact: [phone] This nurse gives pain medication, see eMAR [...] needs, will continue to monitor. Physical Therapy [facility] Date: 12/19/2022 Physical Therapy Daily Note Patient Name: Aleena Rudolph : 1935 (87 y.o.) Pt is PROGRESSING toward goals and increased independence of mobility this treatment session Assessment Assessment: Patient seated up in chair after working with MIKE. States she is tired but agrees to do what she can with COOK JELLY. Performs seated exercises as outlined above but [...] Time Frame for Short Term Goals: NA Security Rover Goals Time Frame for Custodial Goals : 7 days (12/22/2022) Security Rover Goal 1: Patient to transfer sit to stand modified independent Custodial Goal 2: Patient to transfer supine to sit and sit to supine modified independent Security Rover Goal 3: Patient to ambulate 75 ft x2 with w.walker and protective boot R Le modified independent Custodial Goal 4: Patient to have good dynamic standing balance to complete ADLS safely [facility] Therapy License Number: COOK JELLY Date: 12/19/2022 [facility] Occupational Therapy Daily Note Date: 12/19/2022 Patient Name: Aleena Rudolph : 1935 (87 y.o.) Subjective: Patient seated [...] x5 minutes with SBA and no LOB. Custodial Goals Time Frame for Security Rover Goals : STG=LTG Inpatient safety: Call light in reach, Phone in reach, Use of Gait belt, Nurse Notified, and Left in chair Time In: 1356 Time Out: 1435 Timed Coded Minutes: 39 Total Treatment Time: 39 JIM Silva Date: 12/19/2022 [facility] Occupational Therapy Daily Note Date: 12/19/2022 Patient Name: Aleena Rudolph : 1935 (87 y.o.) Subjective: Patient seated [...] sink) UE Dressing: Setup, Modified independent (don tracy and waltn) LE Dressing: Minimal assistance (LB clothing management [...] multiple reports of feeling tired and she (COOK JELLY) wore me out . Noticeable SOB, shakiness [...] x5 minutes with SBA and no LOB. Custodial Goals Time Frame for Security Rover Goals : STG=LTG Inpatient safety: Call light in reach, Phone in reach, Use of Gait belt, Nurse Notified, and Left in chair Time In: 1029 Time Out: 1111 Timed Coded Minutes: 42 Total Treatment Time: 42 JIM Silva Date: 12/19/2022 Private duty care listing and phone number to [facility] left in pt room with pt and her son to give to her dtr. Anny HORVATH 12/19/2022 OT relays to designer writer that patient was short of breath and shaking during ambulation to bathroom. This nurse assesses patient to find her upright in chair talking on telephone. SpO2 reads 93% on room with 108 HR. No sob noted, talking without difficulty. Pt denies pain at this time. Physical Therapy [facility] Date: 12/19/2022 Physical Therapy Daily Note Patient Name: Aleena Rudolph : 1935 (87 y.o.) Pt is PROGRESSING [...] remains in therapy room to work with COMMUNICATION SKILLS INSTRUCTOR. Safety Devices Type of Devices: Gait belt [...] Time Frame for Short Term Goals: NA Custodial Goals Time Frame for Custodial Goals : 7 days (12/22/2022) Custodial Goal 1: Patient to transfer sit to stand modified independent Security Rover Goal 2: Patient to transfer supine to sit and sit to supine modified independent Custodial Goal 3: Patient to ambulate 75 ft x2 with w.walker and protective boot R Le modified independent Custodial Goal 4: Patient to have good dynamic standing balance to complete ADLS safely [facility] Therapy License Number: COOK JELLY Date: 12/19/2022 Physical Therapy [facility] Date: 12/18/2022 Physical Therapy Daily Note Patient Name: Aleena Rudolph : 1935 (87 y.o.) Pt is PROGRESSING [...] She agrees to stay and work with COOK JELLY. She is able to complete seated exercises [...] Time Frame for Short Term Goals: NA Custodial Goals Time Frame for Custodial Goals : 7 days (12/22/2022) Security Rover Goal 1: Patient to transfer sit to stand modified independent Custodial Goal 2: Patient to transfer supine to sit and sit to supine modified independent Security Rover Goal 3: Patient to ambulate 75 ft x2 with w.walker and protective boot R Le modified independent Custodial Goal 4: Patient to have good dynamic standing balance to complete ADLS safely [facility] Number: COOK JELLY Date: 12/18/2022 [facility] Occupational Therapy Daily Note Date: 12/18/2022 Patient Name: Aleena Rudolph : 1935 (87 y.o.) Subjective: Pt sitting [...] left in w/c in therapy room w/ COOK JELLY upon conclusion of OT session. Activity Tolerance: [...] x5 minutes with SBA and no LOB. Custodial Goals Time Frame for Custodial Goals : STG=LTG Other Staff Present : pt left w/ COOK JELLY Time In: 1330 Time Out: 1411 Timed Coded Minutes: 41 Total Treatment Time: 41 MARIN Franco, OTR/L Date: 12/18/2022 SW and air battle manager met with pt and pt's dtr Osbaldo. Pt is alert and oriented and cooperative with assessment. Pt is a 87 year old female admitted for generalized weakness from [facility] after an ankle fracture and repair. Pt was admitted on 12/16/2022. Pt lives alone in her apartment in [place]. Pt's dtr lives close and checks on [...] assist with discharge planning. Anny HORVATH 12/18/2022 [facility] Occupational Therapy Evaluation Date: 12/18/2022 Patient Name: Aleena Rudolph : 1935 (87 y.o.) Gender: female Referring Practitioner: Dr. Rodriguez Diagnosis: Generalized weakness Additional Pertinent Hx: Admitted to [facility] on 12/16/22 due to generalized weakness. According [...] Cane Prior Function Receives Help From: Family, children's attendant Ambulation Assistance: Independent (with w.walker) Transfer [...] x5 minutes with SBA and no LOB. Security Rover Goals Time Frame for Custodial Goals : STG=LTG Plan Times Per Week: [...] discharge by case management. Patient Name: Aleena Rudolph Date of : 1935 Diagnosis: Weakness [R53.1] [...] with: Alone Type of Home: Apartment Primary Pump And Blower Operator: Self Patient Support Systems include: Children, Family [...] Plan for transportation at discharge: Financial Payor: [facility] MEDICARE / Plan: IPDIA DUAL COMPLETE / Product Type: *No Product type* / Does insurance require precert for SNF: Yes Potential assistance Purchasing Medications: No Gune-wp-Gfob request: [facility] - [place], [place] - [address] [facility] [phone] - F [phone] [address] [facility] [address] [facility] [id number] - [place], [place] - [address] [facility] [phone] - F [phone] [address] [facility] [address] Notes: Factors facilitating achievement of predicted outcomes: [...] [R53.1] IF APPLICABLE: The Patient and/or patient dealer compliance representative Aleena and her family were provided with a choice of provider and agrees with the discharge plan. [place] of choice list with basic dialogue that supports the patient's individualized plan of care/goals and shares the quality data associated with the providers was provided to: Patient Patient Construction Accountant Name: The Patient and/or Patient Construction Accountant Agree with the Discharge Plan? Yes Osbaldo William RN Case Management Department Physical Therapy [facility] Date: 12/18/2022 Physical Therapy Daily Note Patient Name: Aleena Rudolph : 1935 (87 y.o.) Pt is PROGRESSING [...] the bathroom. Walking boot is donned per COOK JELLY. Sit to stand from chair is min/CGA. [...] Time Frame for Short Term Goals: NA Custodial Goals Time Frame for Security Rover Goals : 7 days (12/22/2022) Custodial Goal 1: Patient to transfer sit to stand modified independent Security Rover Goal 2: Patient to transfer supine to sit and sit to supine modified independent Security Rover Goal 3: Patient to ambulate 75 ft x2 with w.walker and protective boot R Le modified independent Custodial Goal 4: Patient to have good dynamic standing balance to complete ADLS safely [facility] Therapy License Number: COOK JELLY Date: 12/18/2022 Hospitalist Progress Note 12/18/2022 8:03 [...] -s/p surgical repair by Dr. Mcguire at [facility], continue PT and OT, Percocet as needed [...] the patient's current medications (including all prescriptions, hqcl-tnx-rjhbdgf products, herbals, cannabis / cannabidiol products, vitamin [...] not satisfy MIPS performance). Nicholas Rowan MD, [facility] Center[facility] eSWING BED ORIENTATION Patient Name: Aleena Rudolph : 1935 Gender: female Diagnosis: Weakness [R53.1] [...] arrangement) [x] Personal Phone Number Located on appsFreedom [x] Swing Bed Team Meetings Family encouraged [...] do not have a copy on file, office services clerk notified and will follow up. [] Pt does not have advanced directives. [x] Educated on mail policy Address provided for direct to hospital service Orientation Completed and agreed upon with Aleena Rudolph and/or Family Members SWINGBED PATIENT ACTIVITY PROGRAM ASSESSMENT Patient Name: Aleena Rudolph : 1935 Gender: female Diagnosis: Weakness [R53.1] [...] is it to you to participate in mormon services or practices? Activity Care Plan: Will participate in activity programs of choice daily with no decline throughout SBU stay. COMPUTED TOMOGRAPHY TECHNICIAN S SIGNATURE: Amanda Marinelli Date: 12/21/2022 Comprehensive Nutrition Assessment Type and Reason for Visit: Initial, Positive Nutrition Screen Nutrition Recommendations/Plan: Encourage oral intakes Encourage use of Ensure (prefers strawberry) Malnutrition Assessment: Malnutrition Status: At risk for malnutrition (Comment) (12/18/22 3981) Context: Acute Illness Findings of the 6 clinical characteristics of malnutrition: Energy Intake: Mild decrease in energy intake (Comment) (acutely) Weight Loss: No significant weight loss Body Fat Loss: No significant body fat loss Muscle Mass Loss: No significant muscle mass loss Fluid Accumulation: Mild Extremities Sponge Clipper Strength: Not Performed Nutrition Assessment: Increased nutrient [...] Anthropometric Measures: Height: 5' 6 (167.6 cm) [place] Body Weight (IBW): 130 lbs (59 kg) [...] Used for Energy Requirements: Current Energy (kcal/day): 4811-8826 (11-15) Weight Used for Protein Requirements: [place] Protein (g/day): 63-73 (1.2-1.4) Method Used for [...] Discharge Planning: Sushant Cain RD, FEROZ Contact: [phone] Patient continues to be monitored closely though [...] was ok'd with registration and the nursing building supervisor. Educated the patient on patient safety and emphasized that we are here to help. Moving patient to a room closer to the nurses station for closer monitoring and the benefit of a hercules bed. Patient is agreeable with switching rooms from 270 to 258. This information with be shared with the Attending provider in the morning. Physical Therapy [facility] Date: 12/17/2022 Physical Therapy Daily Note Patient Name: Aleena Rudolph : 1935 (87 y.o.) Pt is PROGRESSING [...] assist. Patient reaches for grab bar [facility] prior to being safely [facility]. Independet with cee care. Standing balance [...] Time Frame for Short Term Goals: NA Custodial Goals Time Frame for Custodial Goals : 7 days (12/22/2022) Custodial Goal 1: Patient to transfer sit to stand modified independent Custodial Goal 2: Patient to transfer supine to sit and sit to supine modified independent Security Rover Goal 3: Patient to ambulate 75 ft x2 with w.walker and protective boot R Le modified independent Custodial Goal 4: Patient to have good dynamic standing balance to complete ADLS safely [facility] Therapy License Number: COOK JELLY Date: 12/17/2022 Patient reports no longer having upset stomach, nausea, or diarrhea. Previous nurse (MAUREEN Khan) reports patient c/o nausea and not feeling well after 1800. Patient puts monogram technician light to use the restroom. Patient states [...] elevated. Lunch aserved. Will continue to monitor. [facility] Physical Therapy Evaluation Date: 12/16/2022 Patient Name: Aleena Rudolph : 1935 (87 y.o.) Gender: female Referring Practitioner: Dr. Rodriguez Diagnosis: Right ankle Additional Pertinent Hx: Patient had fall at home and fx R ankle.Had ankle surgery yesterday at [facility] and arrived in swingbed late [...] Independent (with w.walker) Transfer Assistance: Independent Active Trust Vault Clerk: Yes Additional Comments: Daughter lives nearby and [...] Time Frame for Short Term Goals: NA Security Rover Goals Time Frame for Security Rover Goals : 7 days Security Rover Goal 1: Patient to transfer sit to stand modified independent Custodial Goal 2: Patient to transfer supine to sit and sit to supine modified independent Security Rover Goal 3: Patient to ambulate 75 ft x2 with w.walker and protective boot R Le modified independent Custodial Goal 4: Patient to have good dynamic standing balance to complete ADLS safely PT Individual Minutes Time In: 1034 Time Out: 1102 Minutes: 28 Kay Alcala, PT, PT 12/16/2022 Family member brings in patient's home supplied Humira. Med is in original box with script label adhered to box. Per building supervisor to administer as patient is day late on receiving dose which she takes every two weeks. MEDICAL NUTRITION THERAPY - CONSULT/POSITIVE SCREEN ACKNOWLEDGEMENT Acknowledgement of consult/positive nutrition screening regarding MST 2 supervisor brine. Regular low fat/low cholestenol, high fiber 2 [...] 250 lb (113.4 kg) Marti Simpson RDN, FEROZ 12/16/2022 10:[address] Rodriguez about Humira Injection. Dr. Rodriguez states we can not provide this medication and that the patient will need to have someone bring it in. Informed patient of this and she said she will have someone bring it in. documented in this encounter [employer] [employer] Phone: 12-26-2022 Hospital Discharge instructions Андрей Rodriguez [...] with Efrain Esparza MD after discharge from [facility]. Dafne Avalos RN - 12/22/2022 1:23 PM EST Continuity of Care Form Patient Name: Aleena Rudolph : 1935 Admit date: 12/16/2022 Discharge date: 12/26/2022 Code Status Order: DNR-CCA Advance Directives: Admitting Physician: Андрей Rodriguez MD PCP: Efrain Esparza MD Discharging Nurse: Dafne REDDY Discharging Hospital Unit/Room#: 0258/0258-01 Discharging Unit Emergency Contact: Extended Emergency Contact Information Primary Emergency Contact: Merari Campbell [facility] Mobile Relation: Child Secondary Emergency Contact: STANTON HUERTA Mobile Relation: Child Preferred language: Malian Development Disability Specialist needed? No Past Surgical History: Past Surgical [...] Adult body mass index 40 and over [id number] Aortic valve stenosis I35.0 Benign hypertension I10 [...] Assisted Dressing Assisted Toileting Assisted Feeding Independent Spot Worker Independent Med Delivery whole Wound Care [...] In: 360 [P.O.:360] Out: - Safety Concerns: ers and At Risk for Falls Impairments/Disabilities: None [...] Readmission: 12 Discharging to Facility/ Agency Name: [facility] Address: [place] [address] Dialysis Facility (if applicable) Name: Address: Dialysis Schedule: Phone: Fax: Asphalt Paving Superintendent/Vc++ Developer signature: PHYSICIAN SECTION Prognosis: Good Condition at Discharge: Stable Rehab Potential (if transferring to Rehab): Good Recommended Labs or Other Treatments After Discharge: Physician Certification: I certify the above information and transfer of Aleena Rudolph is necessary for the continuing treatment of the diagnosis listed and that she requires Alf Facility for greater 30 days. Update Admission H&P: No change in H&P PHYSICIAN SIGNATURE: The following attachments cannot be sent through Care Everywhere.Fatigue (Malian)Weakness: Generalized (Malian)Muscle Conditioning: Exercises (Malian)documented in this encounter [facility] [employer] Phone: 12-15-2022 Hospital Discharge instructions Patient Education 12/15/2022 15:05:43 Ankle Fracture, Xkpv-pm-Lsne Ankle Fracture The ankle joint is made [...] crutches as told by your doctor. Take wzeg-aex-pnplhvb and prescription medicines only as told by [...] 09/09/2010 Document Revised: 10/25/2018 Document Reviewed: 12/17/2017 [employer] Patient Education [facility]. Follow Up Care 12/12/2022 19:02:47 With:Efrain ESPARZA Address: [address] [place] [address] Business (1) When: Unknown Comments:Call for followup appointment when d/c from SNF With:Keena Mcguire Address: [address] [place] [phone] Business (1) When:5 to 7 days [facility] 12-15-2022 Evaluation + Plan note Extrac jorge from: Title:Discharge Note Author:JEISON LOFTONP-BCRonel Date:12/15/22 Hemodynamically stable condi tion Discharge To, Anticipated II - Alf Unit Discharge Status: Improved Discharge Instructions Given: [...] Daily With When Contact Information Efrain ESPARZA [facility] [address] [facility] [facility] [place] [address]- Business (1) Additional Instructions: Call for followup appointment when d/c from [facility] Keena Mcguire Within 5 to 7 days [address] [place] [address]- Business (1) Additional Instructions: Ankle Fracture, Airr-de-Gvdh Extracted from: Title:APSO Note Author:Vero COELHO ate:12/15/22 1. Fracture of ankle (S82.89 9A: Other fracture of unspecified lower leg, initial encounter for closed fracture) 12/07/2022: R ankle fracture secondary to mechanical fall at home -12/07: Right ankle x-ray (at [place]) acute closed distal fibular fracture -12/09: Patient [...] Other intermediate (current) drug therapy) -Lovenox Orders: XR Ankle 3+ Views Right XR Foot 3+ Views Right -Plan discussed w/ patient, nursing staff and CRM. -Disposition: Patient is awaiting pre-CERT This report was transcribed using voice recognition software. Every effort was made to ensure accuracy, however, inadvertently computerized shoe repair cobbler mistakes may be present. Extracted from: Title:APSO Note Author:Roseann PADILLA Date:12/13/22 PLAN: 1. Fracture of ankle (S82.476H: Other fracture of unspecified lower leg, initial encounter for closed fracture) Prior ankle fracture on 12/07/2022 after a mechanical fall at home patient slid out of bed again on 12/09/2022 and squad with 3 cylinder honer had to assist patient to get off the floor. Patient has progressively weakened since ankle fracture. Per right ankle x-ray at [place] showed acute closed distal fibular fracture. Was [...] care Influenza A&B Ag Rapid COVID Antigen ([facility]) Saline Lock Insert Troponin 0 Hr. UA With Cult Reflex XR Chest Single View Future Appointments Appointment Date:01/15/2023 03:00:00 PM Scheduled Provider:Efrain ESPARZA MD Location:[facility] Appointment Type: Open Diagnostic Tests Pending * Electrolyte Panel 12/16/22 [facility]01-12-2023 Hospital Discharge instructions* Discharge Instr - CATIA* Lakia Reza DO - 12/07/2022 6:32 PM EST Continuity of Care Form Patient Name: Aleena Rudolph : 1935 Admit date: 12/07/2022 Discharge date: Code Status Order: No Order Advance Directives: Admitting Physician: No admitting provider for patient encounter. PCP: Efrain Esparza MD Discharging Nurse: Discharging Hospital Unit/Room#: 08/04 Discharging Unit Phone Number: Emergency Contact: Extended Emergency Contact Information Primary Emergency Contact: Merari Campbell [facility] Mobile Relation: Child Secondary Emergency Contact: STANTON HUERTA Mobile Relation: Child Preferred language: Malian Development Disability Specialist needed? 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 Edema R60.9 Gastroesophageal reflux disease K21.9 Hallucinations R44.3 Hoarseness R49.0 Hyperglycemia R73.9 Hypothyroidism E03.9 Impacted cerumen H61.20 Mixed hyperlipidemia E78.2 Morbid obesity ([facility]) E66.01 Numbness of hand R20.0 Pain of left lower extremity M79.605 Rheumatoid arthritis ([facility]) M06.9 Spinal stenosis of lumbar region M48.061 Type 2 diabetes mellitus ([facility]) E11.9 Unsteadiness on feet R26.81 Isolation/Infection: Isolation No Isolation Patient Infection Status None to display Nurse Assessment: Last Vital Signs: There were no vitals taken for this visit. Last documented pain score (0-10 scale): Last Weight: Wt Readings from Last 1 Encounters: 10/31/22 250 lb (113.4 kg) Mental Status: {IP PT MENTAL STATUS:} IV Access: { CATIA IV ACCESS:687206908} Nursing Mobility/ADLs: Walking {CHP DME ADLs:439411846} Transfer {CHP DME ADLs:395786912} Bathing {CHP DME ADLs:721041811} Dressing {CHP DME ADLs:707917779} Toileting {CHP DME ADLs:575956307} Feeding {CHP DME ADLs:891645345} Spot Worker {CHP DME ADLs:837479551} Med Delivery { CATIA MED Delivery:062272229} Wound Care Documentation and Therapy: Elimination: Continence: Bowel: {YES / NO:} Bladder: {YES / NO:} Urinary Catheter: {Urinary Catheter:038816930} Colostomy/Ileostomy/Ileal Conduit: {YES / NO:} Date of Last BM: No intake or output data in the 24 hours ending 12/07/221831 No intake/output data recorded. Safety Concerns: { CATIA Safety Concerns:211125582} Impairments/Disabilities: { CATIA Impairments/Disabilities:719721792} Nutrition Therapy: Current Nutrition Therapy: {[facility] Diet List:777493930} Routes of Feeding: {[facility] DME Other Feedings:660207153} Liquids: {[facility] liquid thickness:46031} Daily Fluid Restriction: {CHP DME Yes amt example:527987250} Last Modified Barium Swallow with Video (Video Swallowing Test): {Done Not Done Date:} Treatments at the Time of Hospital Discharge: Respiratory Treatments: Oxygen Therapy: {Therapy; copd oxygen:16713} Ventilator: { CC Vent List:352924899} Rehab Therapies: {THERAPEUTIC INTERVENTION:3566133628} Weight Bearing Status/Restrictions: {[facility] Weight Bearin} Other Medical Equipment (for information only, NOT a DME order): {EQUIPMENT:316164706} Other Treatments: Patient's personal belongings (please select all that are sent with patient): {[facility] DME Belongings:508187778} RN SIGNATURE: {Esignature:697838384} CASE MANAGEMENT/SOCIAL WORK SECTION Inpatient Status Date: Readmission Risk Assessment Score: Readmission Risk Risk of Unplanned Readmission: 0 Discharging to Facility/ Agency Name: Address: Phone: Fax: Dialysis Facility (if applicable) Name: Address: Dialysis Schedule: Phone: Fax: Asphalt Paving Superintendent/Vc++ Developer signature: {Esignature:862155143} PHYSICIAN SECTION Prognosis: {Prognosis:2003574885} Condition at Discharge: { Patient Condition:515085774} Rehab Potential (if transferring to Rehab): {Prognosis:4149765703} Recommended Labs or Other Treatments After Discharge: Physician Certification: I certify the above information and transfer of Aleena Rudolph is necessary for the continuing treatment of the diagnosis listed and that she requires {Admit to Appropriate Level of Care:94918} for {GREATER/LESS:527875888} 30 days. Update Admission H&P: {CHP DME Changes in HandP:044950058} PHYSICIAN SIGNATURE: {Esignature:003968350} * Attachments The following attachments cannot be sent through Care Everywhere. * Ankle Fracture (Malian) documented in this encounterBON Inv[employer] Work Phone: [phone] 454-333008-05-2022 Hospital Discharge instructions Patient Education 06/30/2022 08:33:46 Hypertension, Adult, Hqvq-ig-Fupp Hypertension, Adult Hypertension is another name for [...] your doctor. This is important. Medicines Take tpkz-cvs-qsvjofn and prescription medicines only as told by [...] 04/30/2009 Document Revised: 07/23/2019 Document Reviewed: 07/23/2019 [employer] Patient Education 2020 [employer] Follow Up Care 05/04/2022 08:53:43 With:ISAIAS BECERRA, Efrain Chambers, MED Address: [place] [address] [address], [email or web address] [place] [address]- When:Within 3 Month(s) [facility] 03-01-2022 Evaluation + Plan note Future Scheduled Tests Laboratory* HgbA1c 01/24/22 * CBC w/ Auto Diff 01/24/22 * Comprehensive Metabolic Panel 01/24/22 * Lipid Panel 01/24/22 [facility] 12-13-2021 History of Present illness Narrative* Berkley Garza, COOK JELLY - 11/07/2021 10:30 AM EST Images from the original note were not included. [facility] Outpatient Physical Therapy Daily Note Date: 11/07/2021 Patient Name: Aleena Rudolph : 1935 (86 y.o.) Referring Practitioner: Dr. Efrain Esparza Referral Date : 09/27/21 Diagnosis: Unsteadiness on feet Treatment Diagnosis: Gait ataxia, L LE pain Onset Date: 09/30/21 PT Insurance Information: [facility] 20v Total # of Visits Approved: [...] FWW to improve safety and reduce falls. Security Rover Goals - Time Frame for intermediate teacher goals : 16 visits(POC exp 12/12/21) snf goal 1: Pt to score > 34/80 on LEFS to improve pt ADLs. snf goal 2: Pt to maintain Narrow OBED 10sec 2:3 trials without UEs to improve safety in shower. intermediate teacher goal 3: Pt to have 4/5 hip ABD strength to improve standing mirela. snf goal 4: Pt to report no LOB/Falls x2 consecutive weeks to improve safety in the home. Post Treatment Pain: 03/05 Time In: 1032 Time Out: 1108 Timed Code Treatment Minutes: 36 Minutes Total Treatment Time: 36 Minutes Berkley Garza, COOK JELLY Date: 11/07/2021 documented in this [facility] [employer] Phone: 1(197) 298-623111-07-2021 Note No acute thoracic spine findings. If pain persists, further evaluation with CT scan or MRI could be considered. [facility] RIS [id number] [facility] Lower Extremities DVT Study Procedure Patient Name BRIDGET Date of Study 06/13/2021 ALEENA Dixon Date of 1935 Gender Female Age 85 year(s) Race Room Number Corporate ID # [id number] Patient MR # [id number] Kaiako Kura Tuarua Kiya Forte, RT Interpreting Physician Heri Godoy [...] from left groin through popliteal v. Signature -- Left Impression: CFV, DFV, FV , POPv [...] !Prox Femoral !Yes !Yes !None ! + +--- -------+ + + !Mid Femoral !Yes !Yes !None ! + + + + + !Dist Femoral !Yes !Yes !None ! + + + + + !Deep Femoral !Yes !Yes !None ! + + + + + !Popliteal !Yes !Yes !None ! +-------- + + + +[facility] Work Phone: [phone]) 915-515807-17-2021 Hospital Discharge instructions* Instructions* Xena Andrews MD - 06/11/2021 Alternate ibuprofen with Tylenol 500 to 650 mg every 4 hours for pain control. * Attachments The following attachments cannot be sent through Care Everywhere. * Hip Pain (Malian) * Hypertension: General Info (Malian) * Arthritis (Malian) documented in this [facility] [employer] Work Phone: evaluation + Plan note Future Appointments Appointment Date:06/30/2022 08:00:00 AM Scheduled Provider:Efrain ESPARZA MD Location:[facility] Appointment Type: Open Future Scheduled Tests Laboratory* HgbA1c 01/24/22 * CBC w/ Auto Diff 01/24/22 * Comprehensive Metabolic Panel 01/24/22 * [facility] Future Appointments Appointment Date:06/30/2022 08:00:00 AM Scheduled Provider:Efrain ESPARZA MD Location:[facility] Future Appointments Appointment Date:10/06/2022 10:00:00 AM Scheduled Provider:Efrain ESPARZA MD Location:[facility] Appointment Type: Open Future Scheduled Tests Laboratory* HgbA1c 06/30/22 * CBC w/ Auto Diff 06/30/22 * Comprehensive Metabolic Panel 06/30/22 * Lipid Panel 06/30/22 * Thyroid Stimulating Hormone 06/30/22 * Free T4 06/30/22 [facility] Evaluation + Plan note Future Appointments Appointment Date:10/06/2022 10:00:00 AM Scheduled Provider:Efrain ESPARZA MD Location:[facility] Diagnosis Pain in left hip- Primary Pain in joint, pelvic region and thigh Pain of left calf Essential hypertension Unspecified essential hypertension Osteoarthritis of left hip, unspecified osteoarthritis type documented in this encounter [employer] Phone: evaluation note* Diagnosis Paresthesia Disturbance of skin sensation documented in this encounter [employer] Phone: evaluation note* Diagnosis Pain of left calf documented in this encounter [employer] Phone: evaluation note* Diagnosis Mitral valve insufficiency, unspecified etiology documented in this encounter [employer] Phone: evaluation note* Diagnosis Atrial fibrillation, unspecified type (HCC) 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 Essential hypertension Unspecified essential hypertension Hyperlipidemia, unspecified hyperlipidemia type Ischemic cardiomyopathy Other specified forms of chronic ischemic heart disease Vitamin D deficiency disease Unspecified vitamin D deficiency documented in this encounter [employer] Phone: evaluation note* Diagnosis Atrial fibrillation, unspecified type (HCC) 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 Essential hypertension Unspecified essential hypertension Hyperlipidemia, unspecified hyperlipidemia type Ischemic cardiomyopathy Other specified forms of chronic ischemic heart disease Vitamin D deficiency disease Unspecified vitamin D deficiency documented in this encounter [employer] Phone: evaluation note* Diagnosis Atrial fibrillation, unspecified type (HCC) 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 Essential hypertension Unspecified essential hypertension Hyperlipidemia, unspecified hyperlipidemia type Ischemic cardiomyopathy Other specified forms of chronic ischemic heart disease Vitamin D deficiency disease Unspecified vitamin D deficiency documented in this encounter [employer] Phone: evaluation note* Diagnosis Contusion of ribs, right, initial encounter- Primary Contusion of thoracic spine Contusion of lower back, initial encounter documented in this encounter [employer] Phone: evaluation note* Diagnosis Pain in both wrists Pain in joint, forearm documented in this encounter [employer] Phone: evaluation note* Diagnosis Aortic valve stenosis, etiology of cardiac valve disease unspecified documented in this encounter [facility] [employer] Phone: evaluation note* Diagnosis Atrial fibrillation, unspecified type (HCC) Essential hypertension Unspecified essential hypertension 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 Hyperlipidemia, unspecified hyperlipidemia type Ischemic cardiomyopathy Other specified forms of chronic ischemic heart disease Vitamin D deficiency disease Unspecified vitamin D deficiency Mitral valve insufficiency, unspecified etiology documented in this encounter [employer] Phone: [email or web address] note* Diagnosis Atrial fibrillation, unspecified type (HCC) Essential hypertension Unspecified essential hypertension 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 Hyperlipidemia, unspecified hyperlipidemia type Ischemic cardiomyopathy Other specified forms of chronic ischemic heart disease Vitamin D deficiency disease Unspecified vitamin D deficiency Mitral valve insufficiency, unspecified etiology documented in this encounter [employer] Phone: evalsiwytn note* Diagnosis Closed fracture of distal end of right fibula, unspecified fracture morphology, initial encounter- Primary documented in this encounter [employer] Phone: [email or web address] note* Diagnosis Generalized weakness- Primary Other malaise and fatigue Closed fracture of right ankle, initial encounter documented in this encounter [employer] Phone: evalanixrn note* Diagnosis Bilateral carpal tunnel syndrome- Primary Carpal tunnel syndrome Left hip pain Pain in joint, pelvic region and thigh [facility] Diagnosis Severe pain- Primary [facility]* Diagnosis Severe pain- Primary [facility]* Diagnosis Bilateral carpal tunnel syndrome- Primary Carpal tunnel syndrome [facility]* Diagnosis Severe pain- Primary [facility]* Diagnosis Arthritis pain- Primary [facility] Narrative No data available for this section [facility] Hospital Discharge instructions* Attachments The following attachments cannot be sent through Care Everywhere. * Rib Contusion (Malian) * Low Back Contusion (Malian) [facility] Work Phone: Hospital Discharge instructions No data available for this section [facility] Care Progress note No data available for this section [facility] Assessments Diagnosis Chronic systolic congestive heart failure (HCC) Chronic systolic heart failure Dyslipidemia Other and unspecified hyperlipidemia Vitamin D deficiency disease Unspecified vitamin D deficiency Hypertension, unspecified type Diagnosis Atrial fibrillation, unspecified type (HCC) 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 Essential hypertension Unspecified essential hypertension Diagnosis Ischemic cardiomyopathy Other specified forms of chronic ischemic heart disease Diagnosis Atrial fibrillation, unspecified type (HCC) 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 Essential hypertension Unspecified [...] unspecified type (HCC) 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 Essential hypertension Unspecified essential hypertension Diagnosis Injury of head, initial encounter- Primary Advance Directives Documents on File Type Date Recorded Patient Construction Accountant Expl anation Advance Directives and Living Will Power of Air Brush Decorator Documents on File Type Date Recorded Patient Construction Accountant Expl anation ACP-Advance Directive ACP-Power of Air Brush Decorator Documents on File Type Date Recorded Patient Construction Accountant Expl anation ACP-Advance Directive ACP-Power of Air Brush Decorator Latest Code Status on File Code Status Date Activated Date Inactivated Comments DNR-CCA 12/21/2022 9:56 AM Full Code 12/16/2022 12:39 AM 12/21/2022 9:56 AM Healthcare Agents on File Name Relationship Healthcare Agent Relationship Communication Merari Adrian Child Primary Decision Maker Stanton Huerta Child Secondary Decision Maker Reason for Referral Status Reason Specialty Diagnoses / Procedures Referred By Contact Referred To Contact Pending Review Cardiology Diagnoses Atrial fibrillation, unspecified type (HCC) 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 Essential hypertension Procedures EKG 12 Lead Vigesaa, Emiliano S, MD [address] [place] [address] Status Reason Specialty Diagnoses / Procedures Re ferred By Contact Referred To Contact Closed Cardiology Diagnoses Ischemic cardiomyopathy Procedures ECHO Complete 2D W Doppler W Color HC ECHO NO CONTRAST WITH DOP/COLR Emiliano Leal MD [address] [place] [address] Status Reason Specialty Diagnoses / Procedures Referre d By Contact Referred To Contact Closed Radiology Diagnoses Left leg weakness Lumbosacral radiculopathy Has numbness Procedures MRI lumbar spine without contrast Gaston Parekh M, DO [address] [place] [id number] Status Reason Specialty Diagnoses / Procedures Referred By Contact Referred To Contact Pending Review Vascular Lab Diagnoses Bruit Procedures VL DUP CAROTID BILATERAL Emiliano Leal MD [address] [place] [address] [facility] [address] [place] [address] Status Reason Specialty Diagnoses / Procedures Referre d By Contact Referred To Contact Open Radiology Diagnoses Pain of left calf Procedures VL DUP LOWER EXTREMITY VENOUS LEFT Strus, Xena Porter MD [address] [place] [address] Status Reason Specialty Diagnoses / Procedures Referred By Contact Referred To Contact Pending Review Radiology Diagnoses Pain of left calf Procedures VL DUP LOWER EXTREMITY VENOUS LEFT Strus, Xena Porter MD [address] [place] [address] Status Reason Specialty Diagnoses / Procedures Referre d By Contact Referred To Contact Closed Cardiology Diagnoses Mitral valve insufficiency, unspecified etiology Procedures ECHO Complete 2D W Doppler W Color Emiliano Leal MD [address] [place] [address] Status Reason Specialty Diagnoses / Procedures Re ferred By Contact Referred To Contact Pending Review Cardiology Diagnoses Atrial fibrillation, unspecified type (HCC) 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 Essential hypertension Hyperlipidemia, unspecified hyperlipidemia type Ischemic cardiomyopathy Vitamin D deficiency disease Procedures EKG 12 Lead Emiliano Leal MD [address] [place] [address] Specialty Diagnoses / Procedures Referred By Daphne t Referred To Contact Cardiology Diagnoses Aortic valve stenosis, etiology of cardiac valve disease unspecified Procedures ECHO Complete 2D W Doppler W Color Emiliano Leal MD [address] [place] [address] Referral ID Status Reason Start Date Expiration Date V isits Requested Visits Authorized [id number] Pending Review 08/20/2022 08/20/2023 1 1 Specialty Diagnoses / Procedures Referred By Contac t Referred To Contact Orthopaedic Surgery Diagnoses Bilateral carpal tunnel syndrome Procedures M Inj/Asp: bilateral radiocarpal Keena Mcguire, DO [address] [place] [address] Referral ID Status Reason Start Date Expiration Date V isits Requested Visits Authorized [id number] Pending Review 01/03/2024 07/01/2024 1 1 Discharge Instructions * Attachments The following attachments cannot be sent through Care Everywhere. * Head Injury: Closed: General Info (Malian) documented in this encounter Summary Purpose Family [...] HC ECHO NO CONTRAST WITH DOP/COLR Emiliano Leal MD [address] [place] [address] Status Reason Specialty Diagnoses / Procedures Referre d By Contact Referred To Contact Closed Radiology Diagnoses Left leg weakness Lumbosacral radiculopathy Has numbness Procedures MRI lumbar spine without contrast Gaston Parekh, DO [address] [place] [address] Status Reason Specialty Diagnoses / Procedures Referred By Contact Referred To Contact Pending Review Vascular Lab Diagnoses Bruit Procedures VL DUP CAROTID BILATERAL Emiliano Leal MD [address] [place] [address] [facility] [address] [place] [address] Reason Comments Fall pt states she was [...] LOWER EXTREMITY VENOUS LEFT Xena Andrews MD [address] [place] [address] Status Reason Specialty Diagnoses / Procedures Referre d By Contact Referred To Contact Closed Cardiology Diagnoses Mitral valve insufficiency, unspecified etiology Procedures ECHO Complete 2D W Doppler W Color Emiliano Leal MD [address] [place] [address] Reason Comments Fall Patient fell into si [...] feet Procedures physical therapy Efrain Esparza MD [address] [place] [address] Shanita Henry PT Referral ID Status Reason Start Date Expiration Date Visits Re quested Visits Authorized [id number] Open 10/17/2021 10/17/2022 20 20 Specialty Diagnoses / Procedures Referred By Contac t Referred To Contact Cardiology Diagnoses Atrial fibrillation, unspecified type (HCC) 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 Essential hypertension Hyperlipidemia, unspecified hyperlipidemia type Ischemic cardiomyopathy Vitamin D deficiency disease Procedures EKG 12 Lead Emiliano Leal MD [address] [place] [address] Referral ID Status Reason Start Date Expiration Date V isits Requested Visits Authorized [id number] Pending Review 09/20/2021 09/20/2022 1 1 Reason Comments Ankle Pain Patient presents to the ED with c/o right ankle pain - patient states she was putting on her nightgown and fell - scooted to her bedroom and sat on the bed - when she tried to stand up she heard a pop Specialty Diagnoses / Procedures Referred By Daphne t Referred To Contact Diagnoses Weakness Generalized weakness Back, MD Андрей [address] [place] [address] [facility] [address] [place] [address] Referral ID Status Reason Start Date Expiration Date Visits Re quested Visits Authorized [id number] 1 1 Reason Comments Pain (XR L HIP ONLY) B/L CTS, req junaid, LXR/Last junaid 08/24/23 maL hip, increase in pain, OK PER MTP ma Reason Comments Carpal Tunnel Ordered Prescriptions (unrec ognized section and content) [...] RN) 0849 (Given - Provider: Dafne Avalos, RN) atorvastatin (LIPITOR) tablet 20 mg 20 mg, Oral, DAILY, First dose on 12/16/22 at 0900, Until Discontinued 0812 (Given - Provider: Dafne Avalos RN) 0850 (Given - Provider: Shakeel Yoder RN) 0848 (Given - Provider: Dafne Avalos, RN) DULoxetine (CYMBALTA) extended release capsule 30 [...] MAUREEN) 0851 (Given - Provider: Shakeel Yoder RN)2221 (Given - Provider: Judy Guthrie RN) 0848 (Given - Provider: Dafne Avalos RN)2099 [...] Until Discontinued 0811 (Given - Provider: Dafne Avlaos RN)2045 (Given - Provider: Osbaldo Zhu RN) [...] Zhu RN) 06 (Given - Provider: Judy Guthrie RN) [...] 0849 (Given - Provider: Dafne Avalos, MAUREEN) multivitamin 1 tablet 1 tablet, Oral, DAILY, [...] 5,000 Units Labeling may look different. 25 dtt=2790 Units. Please double check dosages., 5,000 Units, Oral, DAILY, First dose on 12/16/22 at 0900, Until Discontinued, Labeling may look different. 25 jqs=9226 Units. Please double check dosages. 0811 (Given - Provider: Dafne Avalos, RN) 0850 (Given - Provider: Shakeel Yoder, RN) 0848 (Given - Provider: Dafne Avalos, RN) vitamin E capsule 400 Units 400 Units, Oral, DAILY, First dose on 12/25/22 at 1430, Until Discontinued 1407 (Given - Provider: Britany Rosario RN) 0848 (Given - Provider: Dafne Avalos, MAUREEN) PRN Medication Order 12/24/2022 12/25/2022 12/26/2022 acetaminophen [...] hours. 0403 (Given - Provider: Osbaldo Zhu, MAUREEN)2046 (Given - Provider: Osbaldo Zhu, MAUREEN) 0549 (Given - Provider: Osbaldo Zhu RN)2222 (Given - Provider: Judy Guthrie RN) 0848 (Given - Provider: Dafne Avalos RN) senna (SENOKOT) tablet 17.2 mg 17.2 mg (2 tablet), Oral, 2 TIMES DAILY PRN, Starting on 12/16/22 at 0038, Until Discontinued, Constipation Care Teams (unrecognized sec tion and content) Manager Talent Relationship Specialty Start Date End Date Efrain Esparza MD [address] [address] PCP - General Internal Medicine 01/10/18 Manager Talent Relationship Specialty Start Date End Date Efrain Esparza MD [address] [place] [address] PCP - General Internal Medicine 01/10/18 Manager Talent Relationship Specialty Start Date End Date Efrain Esparza MD [address] [place] [address] PCP - General Internal Medicine 01/10/18 Manager Talent Relationship Specialty Start Date End Date Efrain Esparza MD [address] [place] [address] PCP - General Internal Medicine 01/10/18 Manager Talent Relationship Specialty Start Date End Date Efrain Esparza MD [address] [place] [address] PCP - General Internal Medicine 01/10/18 Manager Talent Relationship Specialty Start Date End Date Efrain Esparza MD [address] [place] [address] PCP - General Internal Medicine 01/10/18 Manager Talent Relationship Specialty Start Date End Date Efrain Esparza MD [address] [place] [address] PCP - General Internal Medicine 01/10/18 Manager Talent Relationship Specialty Start Date End Date Efrain Esparza MD [address] [place] [address] PCP - General Internal Medicine 01/10/18 Manager Talent Relationship Specialty Start Date End Date Efrain Esparza MD [address] [place] [address] PCP - General Internal Medicine 01/10/18 Manager Talent Relationship Specialty Start Date End Date Efrain Esparza MD [address] [place] [address] PCP - General Internal Medicine 01/10/18 Manager Talent Relationship Specialty Start Date End Date Efrain Esparza MD [address] [place] [address] PCP - General Internal Medicine 05/21/23 Manager Talent Relationship Specialty Start Date End Date Efrain Esparza MD [address] [place] [address] PCP - General Internal Medicine 05/21/23 Manager Talent Relationship Specialty Start Date End Date Efrain Esparza MD [address] [place] [address] PCP - General Internal Medicine 05/21/23 Manager Talent Relationship Specialty Start Date End Date Efrain Esparza MD [address] [place] [address] PCP - General Internal Medicine 05/21/23 Manager Talent Relationship Specialty Start Date End Date Efrain Esparza MD [address] [place] [address] PCP - General Internal Medicine 05/21/23 Manager Talent Relationship Specialty Start Date End Date Efrain Esparza MD [address] [place] [address] PCP - General Internal Medicine 05/21/23 INFORMATION SOURCE (unrecogn ized section and content) DATE CREATED AUTHOR 03/11/2023 [facility] DATE CREATED AUTHOR AUTHOR'S ORGANIZ ATION 12/06/2023 [facility] DATE CREATED AUTHOR AUTHOR'S ORGANIZ ATION 01/09/2024 [facility] DATE CREATED AUTHOR AUTHOR'S ORGANIZ ATION 10/24/2024 [facility] RECORDS PERTAINING TO PATIENTS WHO ARE [...] BE BASED ON THE PRIMARY CLINICAL RECORDS. [facility]. provides no warranty or guarantee of the accuracy or completeness of information in this document.
--- NOTE | 2024-11-25 13:00 | CA_ITS ---
Patient Name: JUAN GILL MR#: [id number] : 1935 Exam Date: 11/25/2024 Ordering Doctor: EFRAIN THOMPSON ECHOCARDIOGRAM REPORT PROCEDURE: CA ECHO DOPPLER COMPLETE INDICATIONS: Afib, HTN, CAD, AOV stenosis COMPARISON: None. DESCRIPTION: COMPLETE ECHOCARDIOGRAM Real-time transthoracic echocardiography with 2D, M-mode, spectral and color flow Doppler performed. QUALITY: Technical quality was adequate. LEFT VENTRICLE: Normal chamber size. Thickened septal wall. LV EF: Global left ventricular systolic function is hyperdynamic. Visual estimation of left ventricular ejection fraction is 65-70%. No obvious wall motion abnormalities. DIASTOLIC: Grade 1 diastolic dysfunction. E/E' suggests volume overload. ATRIAL SEPTUM: Inadequately seen. LEFT ATRIUM: Mild dilatation. RIGHT ATRIUM: Moderate dilatation. RIGHT VENTRICLE: Normal chamber size. Normal right ventricular systolic function. TRICUSPID VALVE: Trivial regurgitation. No evidence of pulmonary hypertension. RVSP 13mmHg MITRAL VALVE: Normal mobility and thickness. No evidence of mitral valve stenosis. There is no mitral annular calcification. Trivial mitral regurgitation. AORTIC VALVE: Severely calcified aortic valve. Severely diminished mobility. Doppler velocity suggests mild to moderate aortic valve stenosis. DVI 0.28, Vmax 2.7m/s, Mean gradient 18mmHg. Mild to moderate aortic regurgitation. AORTIC ROOT: Normal diameter and appearance. PULMONIC VALVE: Normal thickness and mobility. No stenosis. Trivial regurgitation. PERICARDIUM: Anterior free space; trivial effusion versus fat pad. IVC: Collapses with inspirations. Normal size. CONCLUSION: 1. Global left ventricular systolic function is hyperdynamic; visually estimated ejection fraction is 65-70% 2. The right ventricle is normal in size and systolic function 3. Grade 1 diastolic dysfunction 4. Biatrial dilatation 5. Mild to moderate aortic valve stenosis 6. Mild to moderate aortic valve regurgitation 7. Anterior free space; trivial effusion versus fat pad Adult Echocardiography Procedure Report Left Ventricle LVEDD (3.7 - 5.6 cm): 2.84 cm LVESD (2.2 - 4.0 cm): 2.03 cm LVIVS thickness (0.6 - 1.2 cm): 1.77 cm LVPW thickness (0.5 - 1.0 cm): 1.31 cm e': 0.04 m/s E - e': 19.48 LVOT Max Gradient: 2.20 mm[Hg] LVOT Area (cm2): 0.74 m/s Peak Velocity (LVOT): 0.74 m/s Mean Velocity (LVOT): 0.49 m/s LVOT Diameter 1.99 cm Left Ventricular Ejection Fraction: 70.92 % Left Atrium LA Volume Index (2D A2C): 41.47 ml/m2 Left Atrium Systolic Dimension: 3.73 cm Mitral Valve MV E to A Ratio: 0.68 Mitral Valve A-Wave Peak Velocity: 1.01 m/s Mitral Valve E-Wave Peak Velocity: 0.68 m/s Right Ventricle RV Internal Diastolic Dimension: 4.01 cm Aorta AO Root Diam: 3.33 cm Aortic Valve AoV Area ([place]): 0.88 cm2, 0.90 cm2 AoV Area (VTI): 0.91 cm2, 0.91 cm2 Deceleration Lewis: 1.25 m/s2 Pressure Half-Time: 729.99 ms Peak Velocity(Antegrade Flow): 2.58 m/s, 2.69 m/s Peak Gradient(Antegrade Flow): 26.53 mm[Hg], 28.97 mm[Hg] Mean Velocity(Antegrade Flow): 1.94 m/s, 2.01 m/s Mean Gradient(Antegrade Flow): 15.97 mm[Hg], 17.70 mm[Hg] Velocity Time Integral: 61.60 cm, 61.90 cm Tricuspid Valve Peak Velocity (Regurgitant Flow): 1.58 m/s, 1.40 m/s Pulmonic Valve Mean Gradient: 0.69 mm[Hg], 0.97 mm[Hg] Mean Velocity: 0.39 m/s, 0.47 m/s Peak Velocity: 0.59 m/s Peak Gradient: 1.24 mm[Hg], 1.55 mm[Hg] Right Atrium Right Atrium Systolic Pressure: 91.50 ml, 91.50 ml Dictated by: Stas Roldan M.D. on 12/01/2024 at 15:35 Approved by: Stas Roldan M.D. on 12/01/2024 at 15:43
== END 2024-11-25 12:46 | disposition home or self-care (01) ==
PROVIDERS: PCP Family Medicine; Visit Provider Internal Medicine
DX: I48.91 Unspecified atrial fibrillation (principal); I10 Essential (primary) hypertension; I25.10 Atherosclerotic heart disease of native coronary artery without angina pectoris; E78.5 Hyperlipidemia, unspecified; E55.9 Vitamin D deficiency, unspecified; I35.0 Nonrheumatic aortic (valve) stenosis
CPT/HCPCS: 93306